=== PATIENT | male | born 1965 | race Caucasian/White ===

== ENCOUNTER 2022-05-17 14:10 | Outpatient (CLI) | payer OTHER, SELFPAY ==
[2022-05-17 11:35] LABS: Abs Immature Grans 0.14 10^3/uL (0.0-0.06); Absolute Basophil Count 0.02 10^3/uL (0.0-0.2); Absolute Lymphocyte Count 0.65 10^3/uL (1.2-3.4); Absolute Monocyte Count 0.43 10^3/uL (0.1-0.8); Basophils % 0.2; HCT 37.8 % (40.0-50.0); HGB 12.6 g/dL (13.5-17.5); Immature Grans % 1.2; Lymphocytes % 5.5; MCH 31.4 pg (27.0-33.0); MCHC 33.3 % (32.0-36.0); MCV 94 fL (80-95); MPV 9.7 fL (8.0-11.0); Monocytes % 3.6; Neutrophils % 89.5; Platelet Count 272 10^3/uL (130-400); RBC 4.01 10^6/uL (4.36-5.78); RDW 13.7 % (11.8-14.1); RDW-SD 47.6 fL; WBC 11.84 10^3/uL (4.4-10.8)
[2022-05-17 11:50] LABS: ALT 61 U/L (16-63); AST 24 U/L (15-37); Albumin 3.2 g/dL (3.4-5.0); Alkaline Phosphatase 128 U/L (46-116); Anion Gap 7.2 mmol/L (3-11); BUN 22 mg/dL (7-18); Bilirubin, Total 0.2 mg/dL (0.2-1.0); CO2 25.8 mmol/L (21.0-32.0); CREATININE 0.8 mg/dL (0.70-1.30); Calcium 8.7 mg/dL (8.5-10.1); Chloride 107 mmol/L (98-107); Glucose 147 mg/dL (74-106); Potassium 4.2 mmol/L (3.5-5.1); Sodium 140 mmol/L (136-145); Total Protein 7.1 g/dL (6.4-8.2)
[2022-05-17 12:12] LABS: *AMPHETAMINES SCREEN URINE Negative (Negative); *BARBITURATES SCREEN URINE Negative (Negative); *BENZODIAZEPINES SCREEN URINE Negative (Negative); Cannabinoids THC Positive (Negative); Cocaine Screen,Urine Negative (Negative); METHADONE URINE SCREEN Negative (Negative); OPIATES URINE SCREEN Negative (Negative); Tricyclic Antidepressants Negative (Negative)
== END 2022-05-17 14:11 | disposition home or self-care (01) ==
LOC: LBO 14:11
PROVIDERS: PCP Family Medicine; Visit Provider Internal Medicine Medical Oncology
DX: C34.12 Malignant neoplasm of upper lobe, left bronchus or lung (principal); F19.90 Other psychoactive substance use, unspecified, uncomplicated
CPT/HCPCS: 36415; 80053; 80307; 83735; 85025

== ENCOUNTER 2022-05-24 03:50 | Outpatient (CLI) | payer OTHER, SELFPAY ==
[2022-05-24 08:58] LABS: Abs Immature Grans 0.04 10^3/uL (0.0-0.06); Absolute Basophil Count 0.02 10^3/uL (0.0-0.2); Absolute Eosinophil Count 0.48 10^3/uL (0.0-0.7); Absolute Lymphocyte Count 1.48 10^3/uL (1.2-3.4); Absolute Monocyte Count 0.77 10^3/uL (0.1-0.8); Absolute Neutrophil Count 4.55 10^3/uL (1.2-6.7); Basophils % 0.3; Eosinophils % 6.5; HCT 42.8 % (40.0-50.0); HGB 14.3 g/dL (13.5-17.5); Immature Grans % 0.5; Lymphocytes % 20.2; MCH 31.2 pg (27.0-33.0); MCHC 33.4 % (32.0-36.0); MCV 93 fL (80-95); MPV 9.5 fL (8.0-11.0); Monocytes % 10.5; Platelet Count 270 10^3/uL (130-400); RBC 4.58 10^6/uL (4.36-5.78); RDW 13.2 % (11.8-14.1); RDW-SD 44.9 fL; WBC 7.34 10^3/uL (4.4-10.8)
[2022-05-24 09:11] LABS: ALT 52 U/L (16-63); AST 37 U/L (15-37); Alkaline Phosphatase 83 U/L (46-116); BUN 23 mg/dL (7-18); Bilirubin, Total 0.4 mg/dL (0.2-1.0); CREATININE 0.9 mg/dL (0.70-1.30); Calcium 8.3 mg/dL (8.5-10.1); Chloride 103 mmol/L (98-107); Glucose 99 mg/dL (74-106); Magnesium 1.9 mg/dL (1.8-2.4); Potassium 4.1 mmol/L (3.5-5.1); Sodium 136 mmol/L (136-145); Total Protein 6.9 g/dL (6.4-8.2)
[2022-05-24 09:37] LABS: *AMPHETAMINES SCREEN URINE Positive (Negative); *BARBITURATES SCREEN URINE Negative (Negative); *BENZODIAZEPINES SCREEN URINE Negative (Negative); Cannabinoids THC Positive (Negative); Cocaine Screen,Urine Negative (Negative); METHADONE URINE SCREEN Negative (Negative); OPIATES URINE SCREEN Positive (Negative)
[2022-05-24 09:38] LABS: Tricyclic Antidepressants Negative (Negative)
== END 2022-05-24 03:51 | disposition home or self-care (01) ==
LOC: LBO 03:50
PROVIDERS: PCP Family Medicine; Visit Provider Internal Medicine Medical Oncology
DX: C34.12 Malignant neoplasm of upper lobe, left bronchus or lung (principal); F19.90 Other psychoactive substance use, unspecified, uncomplicated
CPT/HCPCS: 36415; 80053; 80307; 83735; 85025

== ENCOUNTER 2022-05-31 03:40 | Outpatient (CLI) | payer OTHER, SELFPAY ==
[2022-05-31 09:44] LABS: Abs Immature Grans 0.21 10^3/uL (0.0-0.06); Absolute Basophil Count 0.05 10^3/uL (0.0-0.2); Absolute Eosinophil Count 0.05 10^3/uL (0.0-0.7); Absolute Monocyte Count 0.18 10^3/uL (0.1-0.8); Basophils % 0.4; Eosinophils % 0.4; HCT 39.5 % (40.0-50.0); HGB 13.3 g/dL (13.5-17.5); Immature Grans % 1.6; Lymphocytes % 4.3; MCH 31.7 pg (27.0-33.0); MCHC 33.7 % (32.0-36.0); MCV 94 fL (80-95); MPV 9.6 fL (8.0-11.0); Monocytes % 1.4; Neutrophils % 91.9; Platelet Count 289 10^3/uL (130-400); RDW 13.3 % (11.8-14.1); RDW-SD 45.5 fL; WBC 13.17 10^3/uL (4.4-10.8)
[2022-05-31 09:45] LABS: Absolute Lymphocyte Count 0.57 10^3/uL (1.2-3.4)
[2022-05-31 10:07] LABS: ALT 188 U/L (16-63); AST 109 U/L (15-37); Albumin 3.2 g/dL (3.4-5.0); Alkaline Phosphatase 91 U/L (46-116); Anion Gap 8.7 mmol/L (3-11); BUN 26 mg/dL (7-18); Bilirubin, Total 0.4 mg/dL (0.2-1.0); CO2 26.3 mmol/L (21.0-32.0); CREATININE 0.8 mg/dL (0.70-1.30); Calcium 8.4 mg/dL (8.5-10.1); Chloride 103 mmol/L (98-107); Glucose 159 mg/dL (74-106); Magnesium 2.2 mg/dL (1.8-2.4); Potassium 4.9 mmol/L (3.5-5.1); Sodium 138 mmol/L (136-145); Total Protein 7.2 g/dL (6.4-8.2)
[2022-05-31 10:10] LABS: *AMPHETAMINES SCREEN URINE Negative (Negative); *BARBITURATES SCREEN URINE Negative (Negative); *BENZODIAZEPINES SCREEN URINE Negative (Negative); Cannabinoids THC Positive (Negative); Cocaine Screen,Urine Negative (Negative); METHADONE URINE SCREEN Negative (Negative); OPIATES URINE SCREEN Negative (Negative)
[2022-05-31 10:12] LABS: Tricyclic Antidepressants Negative (Negative)
== END 2022-05-31 03:41 | disposition home or self-care (01) ==
LOC: LBO 03:40
PROVIDERS: PCP Family Medicine; Visit Provider Internal Medicine Medical Oncology
DX: C34.12 Malignant neoplasm of upper lobe, left bronchus or lung (principal); F19.90 Other psychoactive substance use, unspecified, uncomplicated
CPT/HCPCS: 36415; 80053; 80307; 83735; 85025

== ENCOUNTER 2022-06-07 02:40 | Outpatient (CLI) | payer OTHER, SELFPAY ==
[2022-06-07 09:53] LABS: HCT 39.3 % (40.0-50.0); HGB 12.8 g/dL (13.5-17.5); MCH 31.1 pg (27.0-33.0); MCHC 32.6 % (32.0-36.0); MCV 96 fL (80-95); MPV 9.1 fL (8.0-11.0); RBC 4.11 10^6/uL (4.36-5.78); RDW 13.6 % (11.8-14.1); RDW-SD 47.6 fL; WBC 3.29 10^3/uL (4.4-10.8)
[2022-06-07 10:22] LABS: ALT 72 U/L (16-63); AST 31 U/L (15-37); Albumin 3.1 g/dL (3.4-5.0); Alkaline Phosphatase 129 U/L (46-116); Anion Gap 7.1 mmol/L (3-11); BUN 16 mg/dL (7-18); Bilirubin, Total 0.1 mg/dL (0.2-1.0); CO2 31.9 mmol/L (21.0-32.0); CREATININE 0.8 mg/dL (0.70-1.30); Calcium 8.7 mg/dL (8.5-10.1); Chloride 104 mmol/L (98-107); Glucose 123 mg/dL (74-106); Potassium 3.7 mmol/L (3.5-5.1); Sodium 143 mmol/L (136-145)
[2022-06-07 10:24] LABS: Absolute Basophil Count 0.03 10^3/uL (0.0-0.2); Absolute Eosinophil Count 0.07 10^3/uL (0.0-0.7); Absolute Lymphocyte Count 0.49 10^3/uL (1.2-3.4); Atypical Lymphocytes % 2; Bands % 1; Diff Comment Manual Differential; Platelet Count 211 10^3/uL (130-400); RBC Morphology Normal
[2022-06-07 10:32] LABS: *AMPHETAMINES SCREEN URINE Negative (Negative); *BARBITURATES SCREEN URINE Negative (Negative); *BENZODIAZEPINES SCREEN URINE Positive (Negative); Cannabinoids THC Positive (Negative); Cocaine Screen,Urine Negative (Negative); METHADONE URINE SCREEN Negative (Negative); OPIATES URINE SCREEN Negative (Negative)
[2022-06-07 10:33] LABS: Tricyclic Antidepressants Negative (Negative)
[2022-06-12 12:49] LABS: Codeine Negative ng/mL (Cutoff: 25); Dihydrocodeine Negative ng/mL (Cutoff: 25); Hydrocodone Negative ng/mL (Cutoff: 25); Hydromorphone 70 ng/mL (Cutoff: 25); Morphine 31 ng/mL (Cutoff: 25); Naloxone Negative ng/mL (Cutoff: 25); Norhydrocodone Negative ng/mL (Cutoff: 25); Noroxycodone Negative ng/mL (Cutoff: 25); Noroxymorphone Negative ng/mL (Cutoff: 25)
== END 2022-06-07 02:41 | disposition home or self-care (01) ==
LOC: LBO 02:41
PROVIDERS: PCP Family Medicine; Visit Provider Internal Medicine Medical Oncology
DX: F19.20 Other psychoactive substance dependence, uncomplicated (principal); C34.12 Malignant neoplasm of upper lobe, left bronchus or lung; F11.20 Opioid dependence, uncomplicated
CPT/HCPCS: 36415; 80053; 80307; 80361; 80362; 80365; 83735; 85025

== ENCOUNTER 2022-06-08 16:26 | Emergency (ER) | payer OTHER, SELFPAY ==
[2022-06-08] VITALS (20 sets, daily range): BP systolic 78–155; BP diastolic 51–91; PULSE 110–154; RESP 3–41; TEMP 36.3–38.8; O2SAT 88–99
--- NOTE | 2022-06-08 16:15 | RT.EKG_ITS ---
APPROVED REPORT Exam: Resting ECG Reason for Exam: ams Patient Location: E HR:123 bpm ECG Measurements Heart Rate 123 AXIS PA 158 P 52 QRSd 92 QRS 39 QT 282 T 5 QTc 405 Conclusion Sinus tachycardia...rate> 99 Probable left atrial enlargement...P >50mS, <-0.10mV V1 Probable left ventricular hypertrophy...multiple LVH criteria
--- NOTE | 2022-06-08 16:15 | DI.CT_ITS ---
Exam(s) CT BRAIN NECK CTA EXAM: CT BRAIN NECK CTA CLINICAL HISTORY: stroke symptoms. TECHNIQUE: Imaging Protocol: Axial CT angiography was performed with multi-slice acquisition and mu lti-planar and/or 3D reconstructions. CONTRAST MATERIAL: Intravenous: Omnipaque 350 Contrast volume:structured data in ml COMPARISON: No exams were available for comparison FINDINGS: CT angiography of the cervical cranial region was performed according to the usual protocol with intr avenous infusion of 85 cc of Omnipaque 350. There is suboptimal contrast bolus and significant patient motion, these factors limit this examinati on.. Initial noncontrast scanning of the head is unremarkable. The lung apices show multiple apparent areas of consolidation, mass not excluded. Follow-up chest CT recommended following treatment. Additionally, note is made of and apical/superior mediastinal appa rent mass versus abscess with a low-attenuation central portion lying adjacent to left subclavian art shameka and aortic arch. Please correlate regarding known history of malignancy period. There is no tejas dence of a cervical mass or adenopathy. The tracheal laryngeal structures appear intact. The common, internal, and external carotid arteries are within normal limits in the cervical region e xcept for slight atheromatous changes. With no evidence of aneurysm, stenosis, or dissection. The vertebral arteries are unremarkable in appearance in the cervical region with no evidence of aneu rysm, stenosis, or dissection. Intracranial portions of the internal carotid arteries appear normal with no evidence of aneurysm, st enosis, or dissection. Intracranial vertebral arteries and basilar artery appear normal with no evidence of aneurysm, stenos is or dissection. No aneurysm identified in the region of the [id number]. The there is suggestion of narrowing of the M1 segment of the right middle cerebral artery raising the possibility of high-grade stenosis ve rsus occlusion. Possible M2 segment involvement. Additional evaluation with catheter angiography re commended. No enhancing brain lesion identified on 5 minutes delayed images.. IMPRESSION: Right apical/mediastinal mass noted, please correlate with history of malignancy. Additionally there are multiple areas of apparent upper lobe pulmonary consolidation seen on visualiz ed lung apices. Limited study but possible high-grade occlusion or stenosis of the distal right middle cerebral arter y M1 segment/M2 segment. Additional evaluation with catheter angiography recommended. RADIATION DOSE DELIVERED: 2,336.64mGy.cmTotal DLP 2,336.64mGy.cm Total DLP !Error CTDIvol DATA REPOSITORY: All CT scans at this facility are submitted to the National Radiology Data Registry (NRDR) Dose Index Registry (DIR) with the [employer] (A[employer]). RADIATION OPTIMIZATION: All CT scans at this facility use at least one of these dose optimization te chniques: automated exposure control; mA and/or kV adjustment per patient size (includes targeted exa ms where dose is matched to clinical indication); or iterative reconstruction.
[2022-06-08] MEDS: Naloxone 0.4 MG/ML VIAL IVP (16:28)
[2022-06-08] MEDS: Normal Saline 1,000 ML 1000 ML IV ×2 (16:29→19:47)
[2022-06-08] MEDS: LORazepam 20 MG/10 ML VIAL IVP (16:33)
--- NOTE | 2022-06-08 16:39 | ED.GENADUL_ITS ---
Discharge Plan Disposition Patient Disposition: [facility] Condition: Critical Discharge Details Clinical Impression: Acute respiratory failure with hypoxia, Acute CVA (cerebrovascular accident), Neutropenia, Multifocal pneumonia Primary Care Provider: Willam Waite ED Provider: Jeff Miller Home Meds and New Rx's Prescriptions: No Action metoprolol succinate 25 mg tablet extended release 24 hr 25 mg PO DAILY clonidine HCl 0.1 mg tablet 0.1 mg PO QHS ibuprofen 200 mg tablet 200 mg PO Q6H PRN naproxen sodium [Aleve] 220 mg capsule 220 mg PO BID PRN divalproex [Depakote ER] 500 mg tablet extended release 24 hr 500 mg PO DAILY multivitamin Tablet 1 tab PO DAILY acetaminophen 325 mg capsule 325 mg PO ONCE PRN fluticasone propion-salmeterol [Advair Diskus] 1 EACH blister with device 1 puff Inhalation BID prazosin 1 MG capsule 3 mg PO BID naltrexone [Revia] 50 MG tablet 50 mg PO DAILY lamotrigine [Lamictal] 25 MG tablet 50 mg PO DAILY omeprazole 10 MG capsule,delayed release(DR/EC) 20 mg PO DAILY Rx Instructions: every morning one hour before breakfast gabapentin 300 MG capsule 300 mg PO BID albuterol sulfate 2.5 MG/3 ML solution for nebulization 2.5 mg Inhalation Q6H PRN prazosin [Minipress] 1 MG capsule 1 mg PO TID dextroamphetamine-amphetamine [Adderall XR] 20 MG capsule,extended release 24hr 20 mg PO DAILY tiotropium bromide [Spiriva with HandiHaler] 18 MCG capsule, w/inhalation device 18 mcg Inhalation DAILY Rx Instructions: w/ inhalation device buprenorphine HCl 8 mg tablet, sublingual 1 tab SUBLINGUAL DAILY dexamethasone 4 mg tablet 1 tab PO DAILY olanzapine 5 mg tablet prochlorperazine maleate 10 mg tablet oxycodone 15 mg tablet Discharge Data Discharge Date/Time-TO BE ENTERED AT DEPARTURE: 06/08/22 21:03 Medical Decision Making 56 yo male with hx of NSCLC on radiation and chemotherapy, bipolar, substance abuse history, who comes in with ems with ams. HE was last seen normal around 330pm when he was at the cancer center per ems report getting radiation therapy. HE went to the bathroom and staff found him in the bathroom with altered mental status. EMS arrived and brought him here. He arrives with a stable bp and is lethargic, when I apply painful stimulation he groans and will withdraw extremities to painful stimuli. Pupils equal and reactive to light. no signs of trauma. Given rapid onset of symptoms suspect drug related overdose vs cva vs hemorrhage, will obtain labs, cta neck/head and also administer narcan to see if it has effect. NIH on arrival 17 (2 conscsiousness, 1 month and age, 3 each for all extremity drift = 12, 3 for language/aphasia) patient was given 0.4mg narcan and was more awake and would answer 1 word yes and no to questions and was constantly rolling around in the bed, seemed to be in mild withdrawal and too agitated for CT so 2mg ativan ordered to help obtain ct images while in CT patient more agitated, was trying to stand up and stating where am I but not answering any questions and could not redirect to lay on the table. He did seem tremulous so seems to have some withdrawal symptoms, to expedite acquisition of images iv ketamine ordered with good effect ct confirms likely right mca infarct with some occlusion of M1 and M2. on return back from ct he was less responsive, barely responsive to painful stimuli and not tolerating interventions including bipap. He was not protecting his airway and without bipap was hypoxic in the high 80's so decision was made to intubate which was done without complications on first attempt with size 4 cmac. His xray shows multifocal lesions concerning for ards vs pneumonia vs pulmonary edema, and on labs is neutropenic so cultures also ordered and was given a dose of vancomycin and zosyn. I discussed with his Ines on his critical status and the ct findings while waiting [place] hear [place] [facility] Discussed risks benefits of tpa and given he has no exclusions and is within 3 hours of last known normal he is a candidate and she wishes to proceed with this and understands risks of hemorrhage. pt had temp sensing graff placed and does have a temp of 39, IV tylenol ordered and antibiotics already started. [facility] unable to get crew when we called and [facility] available to come and transfer patient ED to ED. I discussed the case with neuroICU attending Dr. Sinha who reviewed the case and CT findings and agreed with tpa and wanted pt sent to the ED for possible neuro intervention. Pt stable on vent currently Differential Diagnosis Differential Diagnosis: drug overdose, cva, hemorrhage Imaging Data Radiologic Study: Attestation: I personally reviewed and interpreted this imaging study as follows: Imaging: X-Ray Radiologist's impression: IMPRESSION: Heterogeneous medial left upper lung mass corresponding to findings seen on the recent CT angiogram of the neck. Multifocal patchy consolidations throughout the bilateral lungs, possibly related to multifocal pneumonia, ARDS, pulmonary edema versus metastatic disease. CT chest is recommended to further evaluate. Radiologic Study #2: Attestation: I personally reviewed and interpreted this imaging study as follows: Imaging: CT Scan Radiologist's impression: vrad report reviewed Radiologic Study #3: Attestation: I personally reviewed and interpreted this imaging study as follows: Imaging: X-Ray My impression: satisfactory position of et tube and gastric tube Lab Data Lab results reviewed: Yes I reviewed the patient's lab results. ECG Data Prior ECG tracings: not available for review Interpretation: sinus tachycardia, rate of 123, no acute st t wave ischemic findings, evidence of lvh HPI General Mode of arrival: EMS . Date/Time Provider Initiated Documentation: 06/08/22 16:31 . Limitations to Documentation: altered mental status . Information obtained by: EMS . History of Present Illness 56 year old M presents to the emergency department with the chief complaint of altered mental status, described as severe, Patient started experiencing this hour(s) (1) and it has been constant. No relieving factors improve symptom(s), No exacerbating factors reported . Patient did receive the following treatments prior to arrival, none Related Data Home Medications Medication Instructions Recorded Confirmed albuterol sulfate 2.5 mg/3 mL 2.5 mg inhalation Q6H PRN 08/19/16 06/08/22 (0.083 %) solution for nebulization dextroamphetamine-amphetamine ER 20 mg PO DAILY 08/19/16 20 mg 24hr capsule,extend release (Adderall XR) fluticasone 250 mcg-salmeterol 50 1 puff inhalation BID 08/19/16 mcg/dose blistr powdr for inhalation (Advair Diskus) gabapentin 300 mg capsule 300 mg PO BID 08/19/16 06/08/22 lamotrigine 25 mg tablet (Lamictal) 50 mg PO DAILY 08/19/16 naltrexone 50 mg tablet (Revia) 50 mg PO DAILY 08/19/16 06/08/22 omeprazole 10 mg capsule,delayed 20 mg PO DAILY 08/19/16 06/08/22 release prazosin 1 mg capsule 3 mg PO BID 08/19/16 prazosin 1 mg capsule (Minipress) 1 mg PO TID 08/19/16 tiotropium bromide 18 mcg capsule 18 mcg inhalation DAILY 08/19/16 with inhalation device (Spiriva with HandiHaler) acetaminophen 325 mg capsule 325 mg PO ONCE PRN 05/05/22 06/08/22 clonidine HCl 0.1 mg tablet 0.1 mg PO QHS 05/05/22 06/08/22 divalproex 500 mg tablet,extended 500 mg PO DAILY 05/05/22 06/08/22 release 24 hr (Depakote ER) ibuprofen 200 mg tablet 200 mg PO Q6H PRN 05/05/22 06/08/22 metoprolol succinate 25 mg 25 mg PO DAILY 05/05/22 06/08/22 tablet,extended release 24 hr multivitamin 1 tab PO DAILY 05/05/22 06/08/22 naproxen sodium 220 mg capsule 220 mg PO BID PRN 05/05/22 06/08/22 (Aleve) buprenorphine HCl 8 mg sublingual 1 tab sublingual DAILY 06/08/22 06/08/22 tablet dexamethasone 4 mg tablet 1 tab PO DAILY 06/08/22 06/08/22 olanzapine 5 mg tablet tab 06/08/22 06/08/22 oxycodone 15 mg tablet tab 06/08/22 06/08/22 prochlorperazine maleate 10 mg tab 06/08/22 06/08/22 tablet Allergies Allergy/AdvReac Type Severity Reaction Status Date / Time fentanyl [From Duragesic] AdvReac Nausea Unverified 08/19/16 15:50 fluoxetine AdvReac Unverified 08/19/16 16:27 General Stated Complaint: AMS/LOC FRANK: 1 Review of Systems Unobtainable due to mental status PFSH All Active Problems (Updated 06/08/22 @ 19:35 by Dre Li MD) Acute respiratory failure with hypoxia (Acute) Acute CVA (cerebrovascular accident) (Acute) Neutropenia (Acute) Multifocal pneumonia (Acute) Mass of upper lobe of left lung (Acute) Medical History (Updated 06/08/22 @ 19:35 by Dre Li MD) Lumbar disc herniation Social History Smoking risk assessment performed?: No Exam Const Orientation: other (lethargic) [facility] Head: normal to inspection Ears: external ears normal General nose exam: external nose normal Mouth: moist mucous membranes Neck Neck: normal visual inspection Resp Effort & Inspection: normal respiratory effort and able to speak in complete sentences Cardio Rate: regular rate Skin General skin exam: no rashes or lesions noted Neuro General: patient obtunded (lethargic) Course Vital Signs Vital signs: Vital Signs Temperature 36.3 C L 06/08/22 16:23 Pulse 124 H 06/08/22 16:23 Respiratory Rate 24 06/08/22 16:23 Blood Pressure 116/91 H 06/08/22 16:23 Pulse Oximetry 88 L 06/08/22 16:23 Temperature 36.3 C L 06/08/22 16:23 Pulse 130 H 06/08/22 16:31 Pulse 127 H 06/08/22 16:31 Respiratory Rate 40 H 06/08/22 16:31 Blood Pressure 121/51 L 06/08/22 16:31 Blood Pressure Mean 64 06/08/22 16:31 Pulse Oximetry 88 L 06/08/22 16:23 Oxygen Delivery Method Non-Rebreather 06/08/22 16:23 Procedures Intubation Time out performed: No (emergent) sedative: other (propofol 80mg) paralytic: Rocuronium Mg Given: 100 (mg) Laryngoscope: other (size 4 cmac) ET Tube Size: 8 ET Tube Uncuffed: No Tube Secured Depth (cm): 22 Tube Secured Location: lips Tube Placement Confirmation: visualized tube passing through cords, equal breath sounds bilaterally, no breath sounds over epigastrum and confirmation by capnometry Patient Tolerated Procedure: well and no complications Intubation Complications: none Critical Care Time Critical Care Time Critical Care Time: Yes Total Critical Care Time: 150 (minutes) Attestation: time spent reviewing hemoydamics, lab review, imaging review, administering tpa with pt with acute cva and also hypoxic respiratory failure requiring intubation and potential to deteriorate at any time Sign Out Sign Out Data: Sign Out Comment: acute cva s/p tpa and also neutropenic fever s/p intubation for hypoxic respiratory failure s/p vanco and zosyn. [place] [facility] [place] [place] [facility] approximately 845pm Last updated by Dre Li MD at 06/08/22 19:43
[2022-06-08] MEDS: Omnipaque 350 MG/ML 100 ML BTL IV (16:41)
[2022-06-08] MEDS: Normal Saline Flush 10 ML SYR IVP (16:46)
[2022-06-08 16:54] LABS: BE (Venous) -1 mmol/L (-2-3); HCO3 (Venous) 24 mmol/L (23-28); O2 Sat (Venous) 95 %; TCO2 (Venous) 22 mmol/L (24-29); pCO2 (Venous) 39 mmHg (41-51); pO2 (Venous) 71 mmHg
[2022-06-08 17:00] LABS: Abs Immature Grans 0.08 10^3/uL (0.0-0.06); HCT 36.2 % (40.0-50.0); HGB 12.2 g/dL (13.5-17.5); MCH 31.4 pg (27.0-33.0); MCHC 33.7 % (32.0-36.0); MCV 93 fL (80-95); MPV 9.3 fL (8.0-11.0); Platelet Count 186 10^3/uL (130-400); RBC 3.88 10^6/uL (4.36-5.78); RDW-SD 46.7 fL
--- NOTE | 2022-06-08 17:00 | DI.RAD_ITS ---
Exam(s) XR CHEST 1V IN DI DEPT EXAM: XR CHEST 1V IN DI DEPT CLINICAL HISTORY: altered mental status, hypoxia TECHNIQUE: COMPARISON: No exams were available for comparison FINDINGS: The heart is not enlarged. There are bilateral multifocal pulmonary opacities and a medial left apic al apparent lung mass versus abscess seen on recent CT examination is again noted. Please correlate clinically. Findings a be consistent with diffuse multifocal pneumonia with additional left apical l hardeep mass or abscess. IMPRESSION: RADIATION DOSE DELIVERED: Total DLP
[2022-06-08] MEDS: Ketamine 500 MG/10 ML VIAL 100 MG IVP (17:01)
[2022-06-08 17:08] LABS: WBC 1.07 10^3/uL (4.4-10.8)
[2022-06-08 17:20] LABS: ALT 76 U/L (16-63); AST 56 U/L (15-37); Albumin 2.7 g/dL (3.4-5.0); Alkaline Phosphatase 63 U/L (46-116); Anion Gap 10.4 mmol/L (3-11); BUN 29 mg/dL (7-18); Bilirubin, Total 0.4 mg/dL (0.2-1.0); CO2 25.6 mmol/L (21.0-32.0); CREATININE 1.6 mg/dL (0.70-1.30); Calcium 8.6 mg/dL (8.5-10.1); Chloride 104 mmol/L (98-107); Estimated GFR 45.27 (mL/min/1.73m2); Glucose 130 mg/dL (74-106); Sodium 140 mmol/L (136-145); Total Protein 6.3 g/dL (6.4-8.2)
[2022-06-08 17:24] LABS: Potassium 5.2 mmol/L (3.5-5.1)
[2022-06-08 17:25] LABS: Absolute Lymphocyte Count 0.54 10^3/uL (1.2-3.4); Absolute Monocyte Count 0.09 10^3/uL (0.1-0.8); Atypical Lymphocytes % 6; Bands % 2
[2022-06-08 17:26] LABS: Metamyelocytes % 16
[2022-06-08 17:27] LABS: Absolute Neutrophil Count 0.28 10^3/uL (1.2-6.7)
[2022-06-08] MEDS: Albuterol/Ipratropium 3 ML UPD VIAL UPD (17:39)
[2022-06-08 17:41] LABS: Magnesium 1.4 mg/dL (1.8-2.4); TSH (W/Ref FT4) 0.92 uIU/mL (0.36-3.74)
[2022-06-08] MEDS: methylPREDNISolone SUCC 125 MG VIAL IVP (17:41)
[2022-06-08 17:47] LABS: VALPROIC ACID 60.9 ug/mL
[2022-06-08 17:51] LABS: ETHANOL BLOOD < 3.0 mg/dL (<10)
--- NOTE | 2022-06-08 17:59 | DI.VRAD_ITS ---
Addendum created by Arti Booker MD on 06/08/2022 6:02:38 PM EDT: THIS REPORT CONTAINS FINDINGS THAT MAY BE CRITICAL TO PATIENT CARE. As of 6:02 PM EDT on 06/08/2022, Mally Monreal confirmed that Dre Li has received the exam report, is aware of the critical findings, and indicated no conference call was necessary to discuss the exam findings. Initial report created on 06/08/2022 5:58:48 PM EDT: PROCEDURE INFORMATION: Exam: CTA Head With Contrast, Arteriography Exam date and time: 06/08/2022 4:54 PM Age: 56 years old Clinical indication: Stroke-like symptoms; Other: Stroke symptoms TECHNIQUE: Imaging protocol: Computed tomographic angiography of the head with contrast. Exam focused on the arteries. 3D rendering (Not supervised by radiologist): MIP and/or 3D reconstructed images were created by the technologist. Contrast material: OMNIPAQUE; Contrast volume: 85 ml; Contrast route: INTRAVENOUS (IV); Other contrast: stroke symptoms; COMPARISON: No relevant prior studies available. FINDINGS: ANTERIOR CIRCULATION: Right internal carotid artery: Unremarkable. Intracranial segment is patent with no significant stenosis. No aneurysm. Right middle cerebral artery: Occluded distal M1 and proximal superior M2 segment of the right middle cerebral artery with relative paucity of vessels in the posterior right frontal lobe and right operculum. Right anterior cerebral artery: Unremarkable. No occlusion or significant stenosis. No aneurysm. Left internal carotid artery: Unremarkable. Intracranial segment is patent with no significant stenosis. No aneurysm. Left middle cerebral artery: Unremarkable. No occlusion or significant stenosis. No aneurysm. Left anterior cerebral artery: Unremarkable. No occlusion or significant stenosis. No aneurysm. POSTERIOR CIRCULATION: Right vertebral artery: Unremarkable. No occlusion or significant stenosis. No aneurysm. Left vertebral artery: Unremarkable. No occlusion or significant stenosis. No aneurysm. Basilar artery: Unremarkable. No occlusion or significant stenosis. No aneurysm. Right posterior cerebral artery: Unremarkable. No occlusion or significant stenosis. No aneurysm. Left posterior cerebral artery: Unremarkable. No occlusion or significant stenosis. No aneurysm. Brain: Subtle parenchymal hypoattenuation suspicious for acute right MCA infarction involving the right insular cortex and posterolateral right frontal lobe. No intracranial hemorrhage. Cerebral ventricles: No ventriculomegaly. Bones/joints: Unremarkable. No acute fracture. Soft tissues: Unremarkable. IMPRESSION: 1. Subtle parenchymal hypoattenuation suspicious for acute right MCA infarction involving the right insular cortex and posterolateral right frontal lobe. No intracranial hemorrhage. 2. Occluded distal M1 and proximal superior M2 segment of the right middle cerebral artery with relative paucity of vessels in the posterior right frontal lobe and right operculum. PROCEDURE INFORMATION: Exam: CTA Neck With Contrast Exam date and time: 06/08/2022 4:54 PM Age: 56 years old Clinical indication: Stroke-like symptoms; Other: Stroke symptoms TECHNIQUE: Imaging protocol: Computed tomographic angiography of the neck with contrast. 3D rendering (Not supervised by radiologist): MIP and/or 3D reconstructed images were created by the technologist. Radiation optimization: All CT scans at this facility use at least one of these dose optimization techniques: automated exposure control; mA and/or kV adjustment per patient size (includes targeted exams where dose is matched to clinical indication); or iterative reconstruction. Contrast material: OMNIPAQUE; Contrast volume: 85 ml; Contrast route: INTRAVENOUS (IV); Other contrast: stroke symptoms; COMPARISON: No relevant prior studies available. FINDINGS: Limitations: Motion artifact and suboptimal arterial bolus limit accurate assessment. Right common carotid artery: No stenosis. No dissection or occlusion. Right internal carotid artery: Atherosclerotic disease with approximately 25-50% proximal right ICA stenosis, although motion degradation limits accurate assessment. Right external carotid artery: No occlusion or stenosis of the origin. Left common carotid artery: Partial encasement of the posterior margin of the proximal left common carotid artery from the left upper lung mass. No stenosis or occlusion. Left internal carotid artery: Atherosclerotic disease, without significant proximal left internal carotid artery stenosis by NASCET criteria. Left external carotid artery: No occlusion or stenosis of the origin. Right vertebral artery: No stenosis. No dissection or occlusion. Left vertebral artery: Circumferential encasement of the proximal left vertebral artery associated with the left upper lung mass. No stenosis or occlusion. Left subclavian artery: Circumferential encasement of the proximal left subclavian artery associated with left upper lung mass, without stenosis or occlusion. Soft tissues: No significant soft tissue swelling. Bones/joints: Degenerative changes of the cervical spine. Reversal of cervical lordosis. Mild anterolisthesis at C3-C4. Lungs: Heterogeneous 6 x 5.8 cm medial left apical lung mass with central necrosis is suspicious for lung malignancy. Multifocal consolidations of the bilateral upper lungs with interstitial prominence. Although this may represent multifocal pneumonia, possibility of pulmonary edema, ARDS or metastatic disease cannot be excluded. Recommend CT chest to further evaluate. Paraseptal emphysema of the upper lungs. IMPRESSION: 1. Motion artifact and suboptimal arterial bolus limit accurate assessment. 2. Heterogeneous 6 x 5.8 cm medial left apical lung mass with central necrosis is suspicious for lung malignancy. Multifocal consolidations of the bilateral upper lungs with interstitial prominence. Although this may represent multifocal pneumonia, possibility of pulmonary edema, ARDS or metastatic disease cannot be excluded. Underlying paraseptal emphysema. Recommend CT chest to further evaluate. 3. Associated circumferential encasement of the proximal left subclavian artery and proximal left vertebral artery. Partial encasement of the posterior margin of the proximal left common carotid artery. 4. Atherosclerotic disease with approximately 25-50% proximal right ICA stenosis, although motion degradation limits accurate assessment. No significant proximal left ICA stenosis. REFERENCES: NASCET CRITERIA. The degree of internal carotid artery stenosis is based on NASCET criteria. Normal is no stenosis. Mild is less than 50% stenosis. Moderate is 50-69% stenosis. Severe is 70% to 99% stenosis. Total occlusion is no detectable patent lumen. Dictated and Authenticated by: Arti Booker MD. Ordering:BRITT Erickson MD
[2022-06-08] MEDS: LORazepam 20 MG/10 ML VIAL (18:00)
--- NOTE | 2022-06-08 18:05 | DI.VRAD_ITS ---
PROCEDURE INFORMATION: Exam: XR Chest Exam date and time: 06/08/2022 5:20 PM Age: 56 years old Clinical indication: Other: Altered mental status , hypoxia TECHNIQUE: Imaging protocol: Radiologic exam of the chest. Views: 1 view. COMPARISON: CT BRAIN NECK CTA 06/08/2022 4:54 PM FINDINGS: Lungs: Heterogeneous medial left upper lung mass corresponding to findings seen on the recent CT angiogram of the neck. Multifocal patchy consolidations throughout the bilateral lungs, possibly related to multifocal pneumonia, ARDS, pulmonary edema versus metastatic disease. CT chest is recommended to further evaluate. Pleural spaces: Unremarkable. No pleural effusion. No pneumothorax. Heart/Mediastinum: Cardiomediastinal countour within normal limits. Bones/joints: Degenerative changes of the thoracic spine. IMPRESSION: Heterogeneous medial left upper lung mass corresponding to findings seen on the recent CT angiogram of the neck. Multifocal patchy consolidations throughout the bilateral lungs, possibly related to multifocal pneumonia, ARDS, pulmonary edema versus metastatic disease. CT chest is recommended to further evaluate. Dictated and Authenticated by: Arti Booker MD. Ordering:BRITT Ericksno MD
[2022-06-08] MEDS: Propofol 200 MG/20 ML VIAL 85 MG IVP (18:15)
[2022-06-08] MEDS: Rocuronium 50 MG/5 ML SYR 100 MG IVP (18:15)
--- NOTE | 2022-06-08 18:15 | DI.RAD_ITS ---
Exam(s) XR PORTABLE CHEST AP POST LINE EXAM: XR PORTABLE CHEST AP POST LINE CLINICAL HISTORY: tube placement TECHNIQUE: COMPARISON: CR,XR XR CHEST 1V IN DI DEPT from 06/08/2022 FINDINGS: Portable AP chest at 1917 hours. Note is again made of diffuse multifocal pulmonary opacities. Ther e is interval placement of an ET tube which lies in good position. An NG tube is also placed and rossana ears to lie in appropriate position although the distal tip is not seen in the mid abdomen. IMPRESSION: RADIATION DOSE DELIVERED: Total DLP
[2022-06-08] MEDS: PROPOFOL 1,000 MG/100 ML BTL 50 MG (18:16)
[2022-06-08 18:18] LABS: Diff Comment Manual Differential; RBC Morphology Normal
[2022-06-08] MEDS: PIPERACILLIN/TAZO 4.5 GM in Normal Saline 100 ML IVPB (18:34)
[2022-06-08 18:40] LABS: Lactate 3.1 mmol/L (0.6-1.4)
[2022-06-08 18:44] LABS: Source Nasal/Nares
[2022-06-08 18:50] LABS: BE -1 mmol/L (-2-3); HCO3 27 mmol/L (22-26); pH 7.21 (7.35-7.45); pO2 94 mmHg (80-105); sO2 96 % (95-98); tCO2 26 mmol/L (23-27)
[2022-06-08 18:52] LABS: Site Right Radial; pCO2 67 mmHg (35-45)
[2022-06-08 18:53] LABS: FIO2 70 %
[2022-06-08 18:58] LABS: Troponin I < 50 ng/L (<or=60)
[2022-06-08] MEDS: Ketamine 500 MG/10 ML VIAL 400 MG IM (19:18)
[2022-06-08 19:20] LABS: COVID-19 PCR Negative (Negative)
[2022-06-08] MEDS: MAGNESIUM SULFATE 2 GM/50 ML BAG IVPB (19:20)
[2022-06-08 19:25] LABS: Bilirubin Negative (Negative); Blood Negative (Negative); Clarity Clear (Clear); Glucose Negative (Negative); Ketones Negative (Negative); Leukocyte Esterase Negative (Negative); Nitrite Negative (Negative); Urobilinogen 0.2 EU/dL (Up TO 0.2); pH 5.5 (5-8)
[2022-06-08] MEDS: ACETAMINOPHEN 1,000 MG/100 ML BTL 1000 MG (19:25)
[2022-06-08 19:35] LABS: Bacteria Negative HPF (Negative); C & S Indicated? No; Casts Negative LPF (Negative); Crystals Negative HPF (Negative); Epithelial Cells Negative HPF (Negative); Mucus Negative (Negative); Other Cells Negative (Negative); RBC Negative HPF (0-2)
--- NOTE | 2022-06-08 19:54 | DI.VRAD_ITS ---
PROCEDURE INFORMATION: Exam: XR Chest Exam date and time: 06/08/2022 7:04 PM Age: 56 years old Clinical indication: Device placement; Other: Intubation and ng TECHNIQUE: Imaging protocol: Radiologic exam of the chest. Views: 1 view. COMPARISON: XR CHEST 1V IN DI DEPT 06/08/2022 5:20 PM FINDINGS: Tubes, catheters and devices: Endotracheal tube terminates 4 cm above the amaya. Enteric tube is seen within the stomach Lungs: Patchy bilateral opacities may represent multifocal pneumonia including COVID-19. Pleural spaces: Unremarkable. No pleural effusion. No pneumothorax. Heart/Mediastinum: Unremarkable. No cardiomegaly. Bones/joints: Unremarkable. IMPRESSION: Patchy bilateral opacities may represent multifocal pneumonia including COVID-19. Dictated and Authenticated by: Aaron Moscoso MD. Ordering:BRITT Erickson MD
[2022-06-08] MEDS: VANCOMYCIN 1,000 MG in Normal Saline 250 ML 166.6666 MG IVPB (20:00)
[2022-06-08 20:02] LABS: BE -1 mmol/L (-2-3); HCO3 26 mmol/L (22-26); pCO2 58 mmHg (35-45); pH 7.27 (7.35-7.45); pO2 70 mmHg (80-105); sO2 93 % (95-98); tCO2 25 mmol/L (23-27)
[2022-06-08 20:05] LABS: Site Right Radial
[2022-06-08 20:06] LABS: FIO2 60 %
[2022-06-08 20:20] LABS: Troponin I < 50 ng/L (<or=60)
[2022-06-08] MEDS: PROPOFOL 1,000 MG/100 ML BTL 430.915 MG IVPB (20:25)
== END 2022-06-08 21:03 | disposition short-term general hospital (02) ==
PROVIDERS: Emergency Medicine; Emergency Provider Student in an Organized Health Care Education/Training Program; PCP Family Medicine
DX: J96.01 Acute respiratory failure with hypoxia (principal); I63.89 Other cerebral infarction; D70.9 Neutropenia, unspecified; R50.81 Fever presenting with conditions classified elsewhere; J18.9 Pneumonia, unspecified organism; C34.90 Malignant neoplasm of unspecified part of unspecified bronchus or lung; Z79.899 Other long term (current) drug therapy; R41.82 Altered mental status, unspecified
CPT/HCPCS: 31500; 36415; 36416; 51702; 70496; 70498; 71045; 80053; 82805; 82962; 87040; 87635; 93005; 94640; 96361; 96365; 96366; 96367; 96368; 96372; 96375; 99291; 99292; 36600; 80164; 80320; 81003; 81015; 83605; 83735; 84443; 84484; 85025; 93010; J0131; J2310; J2543; J2704; J2930; J2997; J3490; J7620

== ENCOUNTER 2022-07-12 08:45 | Outpatient (CLI) | payer MEDICARE, SELFPAY ==
[2022-07-12 08:21] LABS: Abs Immature Grans 0.05 10^3/uL (0.0-0.06); Absolute Basophil Count 0.03 10^3/uL (0.0-0.2); Absolute Eosinophil Count 0.49 10^3/uL (0.0-0.7); Absolute Lymphocyte Count 1.46 10^3/uL (1.2-3.4); Absolute Monocyte Count 0.91 10^3/uL (0.1-0.8); Absolute Neutrophil Count 2.76 10^3/uL (1.2-6.7); Basophils % 0.5; Eosinophils % 8.6; HCT 33.9 % (40.0-50.0); HGB 11.1 g/dL (13.5-17.5); Immature Grans % 0.9; Lymphocytes % 25.6; MCH 31.8 pg (27.0-33.0); MCHC 32.7 % (32.0-36.0); MCV 97 fL (80-95); MPV 8.9 fL (8.0-11.0); Neutrophils % 48.4; Platelet Count 305 10^3/uL (130-400); RBC 3.49 10^6/uL (4.36-5.78); RDW 15.7 % (11.8-14.1); RDW-SD 55.7 fL
[2022-07-12 08:43] LABS: *AMPHETAMINES SCREEN URINE Negative (Negative); *BARBITURATES SCREEN URINE Negative (Negative); *BENZODIAZEPINES SCREEN URINE Negative (Negative); Cannabinoids THC Positive (Negative); Cocaine Screen,Urine Negative (Negative); METHADONE URINE SCREEN Negative (Negative); OPIATES URINE SCREEN Negative (Negative)
[2022-07-12 08:44] LABS: Tricyclic Antidepressants Negative (Negative)
[2022-07-12 08:54] LABS: ALT 43 U/L (16-63); AST 46 U/L (15-37); Albumin 2.9 g/dL (3.4-5.0); Alkaline Phosphatase 93 U/L (46-116); Anion Gap 4.7 mmol/L (3-11); BUN 14 mg/dL (7-18); Bilirubin, Total 0.2 mg/dL (0.2-1.0); CO2 31.3 mmol/L (21.0-32.0); CREATININE 0.7 mg/dL (0.70-1.30); Calcium 9.2 mg/dL (8.5-10.1); Chloride 104 mmol/L (98-107); FREE T4 0.96 ng/dL (0.76-1.46); Glucose 98 mg/dL (74-106); Magnesium 1.9 mg/dL (1.8-2.4); Potassium 5.1 mmol/L (3.5-5.1); Sodium 140 mmol/L (136-145); TSH 2.65 uIU/mL (0.36-3.74); Total Protein 7.9 g/dL (6.4-8.2)
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
--- OUTSIDE RECORDS SUMMARY | 2022-07-12 08:54 | XMS_ITS | Encounter Summary ---
:1965 [place] [address] Care Team Providers Name Role Phone Willam Waite MD Primary Care Provider Reason for Visit Auth/Cert Specialty Diagnoses / Procedures Referred By Contact Refer red To Contact Diagnoses Acute encephalopathy Cerebrovascular accident (CVA), unspecified mechanism stroke Elizabeth Parra MD [facility] Procedures EMERGENCY [facility] [place] [address] Referral ID Status Reason Start Date Expiration Date Visits Requ ested Visits Authorized [id number] 1 1 Encounter Details Date Type Department Care Team Description 06/11/2022 Anesthesia Event Vascular Lab at Rossy Skelton Ga MD jim [facility] ANESTHESIOLOGY DEPT [facility] [place] [address] [place] [address] [phone] Anesthesia Record Procedure Summary Procedure Name Responsible Anesthesia Start Anesthesia Stop Time Anesthesiologist Time INPATIENT BEDSIDE Events No events on file. Name Total Propofol 100 mg Rocuronium 100 mg PHENYLephrine 80 mcg Agents No agents on file. Blood No blood administrations on file. Lines, Drains, and Airways Type Details Placement Removal Pressure Injury 06/24/22; no; sacral spine; 06/24/22 0000 by Jocelyne Vinson suspected deep tissue injury L, RN documented in this encounter Social History Tobacco Use Types Packs/Day Years [...] 12 months, you worried that your food Someti mes true 04/21/2022 would run out before [...] place to sleep or slept in a fpc (including now)? Sex Assigned at Date Recorded Male 05/04/2022 4:12 PM EDT documented as of this encounter OR Notes Anesthesia Procedure Notes - Ren Skelton MD - 06/11/2022 9:23 PM EDT Associated Order(s): Emergent Intubation Emergent Intubation Date/Time: 06/11/2022 9:14 PM Urgency: emergent Reason for Intubation: Procedure Diagnosis: respiratory distress General Information and Staff Patient location during procedure: other (add comment) (neuro crit care) Anesthesiologist: Jam Garcia MD Resident/FULFILLMENT REPRESENTATIVE: Ren Skelton MD Other anesthesia staff: Kush Wheeler MD Consent for Airway Informed consent: Not obtained. Pre-Intubation Assessment and Preparation: Time Out Performed: Yes Mallampati Score: II Preoxygenated: yes Sedation Provided: anesthesia Muscle Relaxant Used: Muscle relaxant Cervical Spine Precautions: No Cricoid Pressure Applied: Yes Indication for C.P.: Aspiration Precaution Mask difficulty assessment: 0 - Not Attempted Airway Instrumentation Bag/Mask (Kheterpal) Classification: 0 - Not Attempted Oral AIrway Used? No Nasal Airway Used? No Number of attempts: 1 Airway not difficult Airway Details Final airway type: endotracheal tube Successful airway: ETT Cuffed: yes Successful intubation technique: video laryngoscopy Endotracheal tube insertion site: oral Blade: Indirect VIDEO Blade size: D blade. ETT size (mm): 7.5 Placement verified by: chest auscultation and capnometry Measured from: teeth ETT to teeth (cm): 25 documented in this encounter Plan of Treatment Upcoming Encounters Date Type Specialty Care Team Description 07/14/2022 TH Visit (TeleHealth) Palliative Care Kian Zelaya [facility] PALLIATIVE MEDIC [place], [place] [address] (Wo rk) 07/22/2022 TH Visit (TeleHealth) Palliative Care Benoit Lei FILTER TENDER JELLY [facility] [place] [address] Criselda Zelaya FILTER TENDER JELLY [facility] [place] [address] 08/12/2022 Office Visit Cardiology Hari Summers MD [facility] [place] [address] Kit Bonilla MD [facility] [place] [address] documented as of this encounter Procedures Procedure Name Priority Date/Time Associated Comments Diagnosis INTUBATION - ANES Routine 06/11/2022 9:14 PM Resu lts for this ONLY EDT procedure are i n the results section. documented in this encounter Results INTUBATION - ANES ONLY (06/11/2022 9:14 PM EDT) Narrative Jam Garcia MD - 06/11/2022 9:14 PM EDT Ren Skelton MD ? 06/11/2022 ??9:35 PM Emergent Intubation Date/Time: 06/11/2022 9:14 PM Urgency: emergent Reason for Intubation: ?? Procedure Diagnosis: ??respiratory d istress General Information and Staff Patient location during procedure: ?? ot her (add comment) (neuro crit care) Anesthesiologist: Jam Garcia MD Resident/FULFILLMENT REPRESENTATIVE: Ren Skelton MD Other anesthesia staff: Kush Wheeler MD Consent for Airway Informed consent: ??Not obtained. Pre-Intubation Assessment and Preparatio n: Time Out Performed: ??Yes Mallampati Score: ??II Preoxygenated: yes Sedation Provided: anesthesia Muscle Relaxant Used: ??Muscle relaxant Cervical Spine Precautions: ??No Cricoid Pressure Applied: ??Yes Indication for C.P.: ??Aspiration Precau tion Mask difficulty assessment: 0 - Not Atte mpted Airway Instrumentation Bag/Mask (Kheterpal) Classification: ??0 - Not Attempted Oral AIrway Used? ??No Nasal Airway Used? ??No Number of attempts: 1 Airway not difficult Airway Details Final airway type: endotracheal tube Successful airway: ETT Cuffed: yes Successful intubation technique: video l aryngoscopy Endotracheal tube insertion site: oral Blade: Indirect VIDEO Blade size: D blade. ETT size (mm): 7.5 Placement verified by: chest auscultatio n and capnometry Measured from: teeth ETT to teeth (cm): 25 Jam Garcia MD ANES INPUT W LINKED CHGS documented in this encounter Visit Diagnoses Not on filedocumented in this encounter Administered Medications Inactive Administered Medications - up to 3 most recent administrations Medication Order MAR Action Action Date Dose Rate Site PHENYLephrine in NS (PF) Given 06/11/2022 9:15 PM EDT 80 mcg (RADHA-SYNEPHRINE) 0.8 mg/10 mL (80 mcg/mL) multi-dose injection Syrg Intravenous, PRN, Starting on Tue06/11/22 at 2115, Until 06/12/22 at 0026, Anesthesia Intra-op, Routine propofoL (Diprivan) 10 mg/mL bolus injection Given 9:13 PM EDT 100 mg (Anesthesia) Intravenous, PRN, Starting on Tue06/11/22 at 2113, Until 06/12/22 at 0026, Anesthesia Intra-op rocuronium (Zemuron) (10 mg/mL) multi-dose Given 06/11/2022 9:13 PM EDT 100 mg injection Intravenous, PRN, Starting on Tue06/11/22 at 2113, Until 06/12/22 at 0026, Anesthesia Intra-op, Routine documented in this encounter Additional Health Concerns Infection Onset Date Last Indicated Resolved Time Haemophilus influenza 06/09/2022 06/09/2022 06/13/2022 8:09 PM EDT documented as of this encounter Care Teams Suppository Molding Machine Operator Relationship Specialty Start Date End Date Willam Waite MD PCP - General 03/24/22 6 [place] [id number] documented as of this encounter
--- OUTSIDE RECORDS SUMMARY | 2022-07-12 08:54 | XMS_ITS | Encounter Summary ---
:1965 Author Organization [facility] [place] [address] Care Team Providers Name Role Phone Willam Waite MD Primary Care Provider Encounter Details Date Type Department Care Team Description 07/05/2022 Office Visit Hematology/Oncology Marycruz Ash MD [facility] DR HEMATOLOGY/[place] [address] 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; at [facility] Tami Horton APRN [facility] [address] HEMATOLOGY [place] [address] Secondary malignant neoplasm of bone; [address] [place] [address] Social History Tobacco Use Types Packs/Day Years Used Date Current Every Day Smoker Cigarettes 0.25 40 Smokeless Tobacco: Never Used Comments: 6 [...] Sign Reading Time Taken Comments Blood Pressure 146/91 07/05/2022 3:49 PM EDT Pulse 77 07/05/2022 3:49 PM EDT Temperature 36.5 ??C (97.7 ??F) 07/05/2022 3:49 PM EDT Respiratory Rate 18 07/05/2022 3:49 PM EDT Oxygen Saturation 97% 07/05/2022 3:49 PM EDT Inhaled Oxygen Concentration - - Weight 76.2 kg (168 lb) 07/05/2022 3:49 PM EDT Height 180.6 cm (5' 11.1) 07/05/2022 3:49 PM EDT Body Mass Index 23.36 07/05/2022 3:49 PM EDT documented in this encounter Progress Notes Kanu Ash MD - 07/05/2022 4:00 PM EDT Images from the original note were not included. Hematology & Medical Oncology [address] [address] Iban Palomares is a 56 y.o. male being seen for the evaluation of lung cancer. Assessment & Plan Iban Palomares is a 56 y.o. male from [place], [place] with h/o COPD, bipolar affective disorder, herniated disc and HTN, chronic Hep C diagnosed with a lung adenocarcinoma (KRAS Q61L variant; TPS 5-10%) of the left lung apex extending to the scalene triangle, paraspinous soft tissues and superior mediastium with involvement of the T1 and T2 vertebral bodies, the left C7-T1 through T3-T4 neural foramina and the epidural space on the left in the upper thoracic spine. Of note, there was also vascular encasement of left vertebral artery and partial encasement of left subclavian artery. He was started on definitive concurrent chemotherapy/RT on 05.24.22 and received 3 doses of chemotherapy with the concurrent RT before being admitted from 06.08.22- 06.28.22 after being found in an obtunded state. He had a prolonged admission in the ICU requiring intubation. There was initially concern for right MCA occlusion and he was given tpa. Extensive evaluation including EEG and LP were not revealing. There was concern that it may have been related to medications We had a long discussion today. I have discussed his case with Dr. Donald of radiation oncology. The 3 week gap in radiation and ongoing concerns about adherence make it very difficult to see any curative option here going forward. Discussed that we will need to try palliative chemoimmunotherapy with carboplatin/pemetrexed/pembrolizumab. We discussed the potential side effects of treatment and that his substance use and hep C further compound the complexities. At this point do not think we should pursue Hep C treatment prior to resuming cancer treatment given that that is the most pressing issue Kanu Ash MD, MS 07/05/2022 Medical Oncology & Hematology [facility] HPI - Interval History Last seen 06/07/2022 He does not recall any of the events of his ICU stay. Has been not using. Generally feels ok. Continued issues with his pain. Social History/Support Network Home situation: /[place] reports she and pt have been 26 years. They have one daughter together, Ever, who is a primary support. Both pt and have other children. indicated pt's nephew has been involved but shared concerns about his influence on pt. indicated pt does have some good people who want to help if he will let them. indicated she has some good friends who aresupports/resources to her. Family History - not addressed Patient Active Problem List Patient Active Problem List Diagnosis Code ??? Lumbar disc herniation M51.26 ??? Hepatitis C, chronic B18.2 ??? Mass of upper lobe of left lung R91.8 ??? Lung mass R91.8 ??? Substance use disorder F19.90 ??? Primary malignant neoplasm of bronchus of left upper lobe C34.12 ??? Acute encephalopathy G93.40 ??? Moderate protein-calorie malnutrition E44.0 Physical Exam BP (!) 146/91 (Patient Position: Sitting) Pulse 77 Temp 36.5 ??C (97.7 ??F) (Temporal) Resp 18 Ht 180.6 cm (5' 11.1) Wt 76.2 kg (168 lb) SpO2 97% BMI 23.36 kg/m?? Wt Readings from Last 3 Encounters: 07/05/22 76.2 kg (168 lb) 06/27/22 71.6 kg (157 lb 12.8 oz) 06/14/22 85 kg (187 lb 6.3 oz) Physical Exam Constitutional: General: Cooperative but edgy. Appearance: Thin. Uncomfortable HENT: Head: Atraumatic. Eyes: General: No scleral icterus. Right eye: No discharge. Left eye: No discharge. Conjunctiva/sclera: Conjunctivae normal. Pulmonary: Effort: Pulmonary effort is normal. Neurological: General: No focal deficit present. Mental Status: Alert and oriented to person, place, and time. Mental status is at baseline. Psychiatric: Mood and Affect: Mood normal. Behavior: Behavior normal. Thought Content: Thought content normal. Judgment: Judgment normal. Skin: scattered small pustules on his back and chest Imaging CT Chest w Contrast (Exam End: 05/04/2022 5:59 PM) ?? Impression ?? 1. Unchanged size of left upper mediastinal mass/malignancy. This mass abuts the upper esophagus and there is absence of the fat plane between the mass and the esophagus. In addition there is abnormal soft tissue projecting into the left T1-T2 neural foramen and also abutting the anterior T1 and T2 vertebral bodies, concerning for potential epidural extension of tumor. MRI of the lower cervical and upper thoracic spine is recommended for further characterization. 2. Increased nonspecific ground glass opacity and compressive atelectasis surrounding the mass.pro 3. Paraseptal and centrilobular emphysema. No pneumothorax or pleural effusions. Labs 8.15.22 Sodium 143 potassium 3.7 BUN 16 creatinine 0.8 which is stable glucose 123 magnesium 2.0 total bilirubin 0.1 AST 31 ALT 72 down from 188 alk phos 129 up from 91 albumin 3.1 down from 3.2 up from 3.0 White blood cell count 3.29 hemoglobin 12.8 platelet count 211,000 absolute neutrophil count 2.50 05/31/22 WBC 13.17, Hgb 13.3, Plt Ct 289, ANC 12.10 Na 138, K+ 4.9, BUN 26, Creat 0.8, Glucose 159, Calcium 8.4, Mag 2.2, Total Bili 0.4, AST 109 up from 37, ALT 188 up from 52, Alk Phos 91, total Protein 7.2, Albumin 3.2 05/24/22 WBC 7.34, Hgb 14.3, Plt Ct 270, ANC 4.55 Na 136, K+ 4.1, BUN 23, Creat 0.9, Glucose 99, Calcium 8.3, Mag 1.9, total bili 0.4, AST 37, ALT 52,Alk Phos 83, Total Protein 6.9, Albumin 3.0 05/17/22 WBC 11.84, Hgb, 12.6, Plt Ct 272, ANC 10.60 Na 140, K+ 4.2, BUN 22, Creat 0.8, Glucose 147, Calcium 8.7, Mag 2.0, Total Bili 0.2, AST 24, ALT 61, Alk Phos 128, Total Prot 7.1, Albumin 3.2 documented in this encounter Plan of Treatment Upcoming Encounters Date Type Specialty Care Team Description 07/14/2022 TH Visit (TeleHealth) Palliative Care Kian Zelaya [facility] PALLIATIVE MEDIC [place], [place] [address] (Wo rk) 07/22/2022 TH Visit (TeleHealth) Palliative Care Benoit Lei [facility] PALLI[place] [address] Criselda Zelaya [facility] PALLIATIVE [place] [address] 08/12/2022 Office Visit Cardiology Hari Summers MD [facility] [place] [address] Kit Bonilla MD [facility] [place] [address] Scheduled Orders Name Type Priority Associated Diagnoses Order S chedule TSH Lab Routine Primary malignant neoplasm o f Every 3 weeks for 24 bronchus of left upper lobe Occurrences starting 07/05/2022 Secondary malignant neoplasm of until 07/05/2023 bone Medication management T4, free Lab Routine Primary malignant neoplasm o f Every 3 weeks for 24 bronchus of left upper lobe Occurrences starting 07/05/2022 Secondary malignant neoplasm of until 07/05/2023 bone Medication management documented as of this encounter Visit Diagnoses Diagnosis 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 Malignant neoplasm of upper lobe, bronch us or lung 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
--- OUTSIDE RECORDS SUMMARY | 2022-07-12 08:54 | XMS_ITS | Encounter Summary ---
:1965 Author Organization [facility] [place] [address] Care Team Providers Name Role Phone Willam Waite MD Primary Care Provider Encounter Details Date Type Department Care Team Description 06/04/2022 Telephone Palliative Medicine at [facility] Elizabeth Whitmore, [place] [address] Social History Tobacco Use Types Packs/Day Years [...] place to sleep or slept in a custodial (including now)? Sex Assigned at Date Recorded Male 05/04/2022 4:12 PM EDT documented as of this encounter Miscellaneous Notes Telephone Encounter - Elizabeth Whitmore RN - 06/04/2022 11:58 AM EDT Palliative Care Call Caller: RN with patient Iban Palomares Reason for Call: Iban is calling with reports of worsening anxiety, agitation and sleeplessness since stopping lorazepam 2 days ago. Symptom Review: anxiety, agitation, sleeplessness Onset: on-going with worsening symptoms in the last 48 hrs What makes it better: reports Xanax is most helpful and is what he has used in the past. Associated symptoms: sleep Medications review: -Lorazepam- discontinued per Criselda Zelaya APRN on 06/02/2022 -Trazadone- reports caused severe leg cramps and not willing to try again -Seroquel- reports made him ugly, reporting worsening mood. Assessment: Iban reports feeling worked up today. He states he has not been able to get more than 3-4 hours ofsleep over the last 2 nights due to agitation and anxiety. He reports on-going anxiety that he has had for many years. He wonders why the provider discontinued his lorazepam 2 days ago. I reminded him that the reason for discontinuation of the lorazepam was because he was reporting worsening agitation and anxiety due to the lorazepam. He states since stopping it 2 days ago he feels even more agitated and can not sleep at night. He would like do discuss interventions for sleep. He reports he has not been using any street drugs despite the tempation. He reports that xanax in the past has been most helpful for his anxiety and to help him sleep. He wonders why, with a cancer diagnosis, that the providers won't let him have xanax. We discussed that medications like lorazepam such as xanax and klonopin may have the same paradoxal effects (worsenig of anxiety and agitation) that he was having with the lorazepam and therefore may not be advised. I explained Criselda Zelaya was out of the office today and that I would talk to the covering provider and then call him back. Disposition: Telephone advice Next Palliative Care appointment: 06/09/2022 w/Criselda Zelaya Plan of Care: Discussed above reports with covering provider, per Dr. Sanabria a trial prescription for Olanzapine 5mg sent to [facility] in [place]. -start Olazapine 5mg tablet at bedtime -RN call on Tuesday to assess sleep, and mood Timeframe to call back if no improvement: call as needed over the weekend with worsening symptoms ofanxiety, agitation or sleeplinessness Patient/responsible caregiver able to read back instructions/plan of care? Yes, Iban reports he has not tried olanzapine and would be willing to give it a try. When I called back to confirm the prescription was sent I spoke with his daughter Ever as he had left for his radiation therapy. She verbalized understanding of the plan when she stated she would call over the weekend if they noted any worsening of his agitation or sleeplessness symptoms. She confirmed that she and her mother continue to lock up all medications and dispense them directly to him when it is time to take. She demonstrated understanding of plan when stating this new medication will be given before bed. Follow up needed? Yes RN call on Tuesday to assess mood and sleep with new medication. documented in this encounter Plan of Treatment Upcoming Encounters Date Type Specialty Care Team Description 07/14/2022 TH Visit (TeleHealth) Palliative Care Kian Zelaya APRN [facility] PALLIATIVE MEDIC [facility] [place] [address] (Wo rk) 07/22/2022 TH Visit (TeleHealth) Palliative Care Benoit Lei APRN [facility] [place] [address] Criselda Zelaya BIOMEDICAL ENGINEERING TECHNOLOGIST [facility] [place] [address] 08/12/2022 Office Visit Cardiology Hari Summers MD [facility] [place] [address] Kit Bonilla MD [facility] [place] [address] documented as of this encounter Visit Diagnoses Not on filedocumented in this encounter Care Teams Heater Tender Relationship Specialty Start Date End Date Willam Waite MD PCP - General 03/24/22 [address] [place] [phone] documented as of this encounter
--- OUTSIDE RECORDS SUMMARY | 2022-07-12 08:54 | XMS_ITS | Encounter Summary ---
:1965 Author Organization [facility] [place] [address] Care Team Providers Name Role Phone Willam Waite MD Primary Care Provider Encounter Details Date Type Department Care Team Description 07/07/2022 [facility] [address] HEMATOLOGY/ONCOLOGY DEPT [place], [place] [phone] Social History Tobacco Use Types Packs/Day Years [...] PM EDT documented as of this encounter Plan of Treatment Upcoming Encounters Date Type Specialty Care Team Description 07/14/2022 TH Visit (TeleHealth) Palliative Care Kian Zelaya WORK MANAGER [facility] PALLIATIVE MEDIC [place], [place] [address] (Wo rk) 07/22/2022 TH Visit (TeleHealth) Palliative Care Benoit Lei WORK MANAGER [facility] [place] [address] Criselda Zelaya WORK MANAGER [facility] [place] [address] 08/12/2022 Office Visit Cardiology Hari Summers MD [facility] [place] [address] Kit Bonilla MD [facility] [place] [address] documented as of this encounter Visit Diagnoses Not on filedocumented in this encounter Care Teams Assembly Member Relationship Specialty Start Date End Date Willam Waite MD PCP - General 03/24/22 6 [place] [phone] documented as of this encounter
--- OUTSIDE RECORDS SUMMARY | 2022-07-12 08:54 | XMS_ITS | Encounter Summary ---
:1965 Author Organization [place] [address] Care Team Providers Name Role Phone Willam Waite MD Primary Care Provider Reason for Visit Reason Onset Date Comments Medication Refill 06/05/2022 Unable to fill at [facility] over the weekend Encounter Details Date Type Department Care Team Description 06/05/2022 Telephone Pallative Medicine Kinsey Lucas, Medication Refill [facility] CERTIFICATION TECHNICIAN (Unable to fill at [facility] [place] [address] [address] [address] weekend) [phone] PALLIATIVE MEDIC [place], [place] [address] (Wo rk) Social History Tobacco Use Types [...] months, you worried that your food Someadria benson true 04/21/2022 would run out before you [...] place to sleep or slept in a usp (including now)? Sex Assigned at Date Recorded Male 05/04/2022 4:12 PM EDT documented as of this encounter Miscellaneous Notes Telephone Encounter - Kinsey Lucas, CERTIFICATION TECHNICIAN - 06/05/2022 10:15 AM EDT Iban called today (Tuesday) with concerns of throat pain and inability to eat, and the inability tofill his prescriptions for Subutex, BMX, and olanzapine today due to [facility] pharmacy being closedon the weekend. Requesting Rx sent to [facility] in [place]. PDMP reviewed for [place], [place] with no current concerns. Rx sent to [facility] as requested. Iban was not reachable by phone, but a message was left letting him know of the pharmacy change. Message left at [facility] pharmacy to cancel the unfilled prescriptions for the above medications. Iwill have our nurse follow-up on Tuesday with [facility]. Addendum 06/05 8083 I spoke with the pharmacist, Angel, at [facility], to confirm the prescriptions went through. He notified me that the [facility] Rx for buprenorphine, BMX mouthwash, and Zyprexa, had already been filled but not picked up by Iban, and insurance had already been charged. This means Iban will need to pay out of pocket for the Rx at [facility] until the Rx is cancelled at [facility] on Tuesday. The pharmacist verified his prescriptions, recent and upcoming office visits, and was able to validate the buprenorphine prescription for pickup today, and give quotes of the [place] needed. Ines, Iban's , was notified of these concerns, and she will call the pharmacy to see if they can hand picker enough for the weekend, and then fill the rest on Tuesday once the insurance issue is resolved. CC Criselda Zelaya APRN documented in this encounter Plan of Treatment Upcoming Encounters Date Type Specialty Care Team Description 07/14/2022 TH Visit (TeleHealth) Palliative Care Kian Zelaya APRN [facility] PALLIATIVE MEDIC [place], [place] [address] (Wo rk) 07/22/2022 TH Visit (TeleHealth) Palliative Care Benoit Lei APRN [facility] [place] [address] Criselda Zelaya CERTIFICATION TECHNICIAN [facility] [place] [address] 08/12/2022 Office Visit Cardiology Hari Summers MD [facility] [place] [address] Kit Bonilla MD [facility] [place] [address] documented as of this encounter Visit Diagnoses Not on filedocumented in this encounter Care Teams Blind Stitch Machine Operator Relationship Specialty Start Date End Date Willam Waite MD PCP - General 03/24/2203 [address] [place] [address] documented as of this encounter
--- OUTSIDE RECORDS SUMMARY | 2022-07-12 08:54 | XMS_ITS | Encounter Summary ---
:1965 Author Organization [facility] [place] [address] Care Team Providers Name Role Phone Willam Waite MD Primary Care Provider Encounter Details Date Type Department Care Team Description 06/21/2022 Orders Only Neurology at [facility] John La, [facility] D [facility] [place] [address] NEUROLOGY DEPT [phone] [place], [place] [address] (Wo rk) Social History Tobacco [...] TH Visit (TeleHealth) Palliative Care Kian Zelaya [facility] PALLIATIVE MEDIC [place], [place] [address] (Wo rk) 07/22/2022 TH Visit (TeleHealth) Palliative Care Benoit Lei [facility] [place] [address] Criselda Zelaya [employer] [facility] [place] [address] 08/12/2022 Office Visit Cardiology Hari Summers MD [facility] [place] [address] Kit Bonilla MD [facility] [place] [address] documented as of this encounter Procedures Procedure Name Priority Date/Time Associated Diagnosis Comme nts GOLD TUBE HOLD Routine 05/10/2022 10:50 PM Result s for this EDT procedure are i n the results section . documented in this encounter Results Gold Tube HOLD (05/10/2022 10:50 PM EDT) athologist Signature Gold Hold Sample in [facility]. [facility] Specimen Anatomical Collection Method Collection Time Receive d Time (Source) Location / / Volume Laterality Blood No Charge / 05/10/2022 10:50 05/10/2022 Unknown PM EDT 10:58 PM EDT John La DO CHEMISTRY ORDERABLES Performing Organization Address City/State/ZIP [place] [address] documented in this encounter Visit Diagnoses Not on filedocumented in this encounter Care Teams Invoice Checker Relationship Specialty Start Date End Date Willam Waite MD PCP - General 03/24/22 6 [place] [address] documented as of this encounter
--- OUTSIDE RECORDS SUMMARY | 2022-07-12 08:54 | XMS_ITS | Encounter Summary ---
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 Kanu Ash MD [facility] Hem Onc Office Procedures TC PALONOSETRON HCL, 25MCG, INJECTION (ALOXI) TC FOSAPREPITANT, 1MG, INJECTION (EMEND) TC CARBOPLATIN, 50MG, INJECTION (PARAPLATIN) TC PEMETREXED, 10MG, INJECTION (ALIMTA) J2469 Aloxi 0.25 MG - NR J1453 EMEND [address] J9045 CARBOplatin (Paraplati n) 750 MG [id number] ALIMTA 980 MG [id number] KEYTRUDA 200 MG HEMATOLOGY/[place] [phone] Fax: Referral ID Status Reason Start Date Expiration Date Visits V isits Requested Authorized [id number] Authorized 07/07/2022 07/07/2023 99 99 Encounter Details Date Type Department Care Team Description 07/12/2022 Infusion Hematology Oncology at [facility] Arrived [address] [place] [phone] Social History Tobacco Use Types Packs/Day Years [...] place to sleep or slept in a senior living (including now)? Sex Assigned at Date Recorded Male 05/04/2022 4:12 PM EDT documented as of this encounter Plan of Treatment Upcoming Encounters Date Type Specialty Care Team Description 07/14/2022 TH Visit (TeleHealth) Palliative Care Kian Zelaya APRN [facility] PALLIATIVE MEDIC [place], [place] [address] (Wo rk) 07/22/2022 TH Visit (TeleHealth) Palliative Care Benoit Lei, [facility] [place] [address] Criselda Zelaya, [facility] [place] [address] 08/12/2022 Office Visit Cardiology Hari Summers [place] [address] Kit Bonilla MD [facility] [place] [address] documented as of this encounter Visit Diagnoses Not on filedocumented in this encounter Care Teams Dynamics Ax Technical Architect Relationship Specialty Start Date End Date Willam Waite MD PCP - General 03/24/22 6 [place] [address] documented as of this encounter
--- OUTSIDE RECORDS SUMMARY | 2022-07-12 08:54 | XMS_ITS | Clinical Summary ---
:1965 Author Organization [facility] [place] [address] Care Team Providers Name Role Phone Willam Waite MD Primary Care Provider Allergies Active Allergy Reactions Severity Noted Date Comments Fentanyl Nausea Only Medium 04/06/2022 Fluoxetine Medium 04/06/2022 Other reaction( s): Other Lidocaine In Dextrose Other (See Comments) Medium 05/11/2022 Experienced confusion, 7.5 % sensorium menezes es, muscle cramps w hile on lidocaine infus ion for pain -> infusio n had to be discontin ued; would avoid sys temic lidocaine in e future. Medications Medication Sig Dispensed Refills Start Date End Date Status albuterol (PROVENTIL Inhale 2 puffs 0 Active HFA;VENTOLIN HFA) 90 into the lungs mcg/Actuation inhaler every 4 hours as needed. Use with spacer MULTIVITAMIN ORAL Take 1 tablet by 0 Active mouth daily. omeprazole (PriLOSEC) Take 40 mg by 0 04/22/2022 Active 40 mg Capsule, Delayed mouth daily. Release(E.C.) polyethylene glycoL Take 17 g by 14 each 0 05/11/2022 Active (Miralax) 17 gram mouth daily as Powder in Packet needed. Additional Information Patient not taking. Reported on 07/05/2022 naloxone (Narcan) 4 1 each by Nasal route 1 each 0 05/11/20 22 Active mg/actuation [place], Non-Aerosol once as needed for up to 1 dose. Additional Information Patient not taking. Reported on 05/24/2022 acetaminophen (TYLENOL) Take 1,300 mg by 0 Active 650 mg Tablet Sustained mouth every 8 Release hours as needed for Pain. Do not exceed 6 tabs in 24 hours labetaloL (Normodyne) 200 Take 1 tablet by 30 tablet 0 022 Active mg Tablet mouth 3 times daily. folic acid (Folvite) 1 mg Take 1 tablet by 30 tablet 0 06/28/ 022 07/28/2022 Active Tablet mouth daily for 30 days. thiamine (thiamine Take 1 tablet by 30 tablet 0 06/29/202203/2022 Active mononitrate) 100 mg mouth daily for 30 days. OLANZapine (ZyPREXA) 5 mg Take 1 tablet by 60 tablet 0 022 07/27/2022 Active Tablet mouth 2 times daily for 30 days. nicotine (Nicoderm CQ) 21 Change 1 patch on 28 patch 3 2021 Active mg/24 hr Patch 24 hr the skin daily. Additional Information Patient not taking. Reported on 07/08/2022 prochlorperazine (Compazine) 10 Take 1 tablet by mouth 30 tablet 3 07/01/2022 Active mg Tablet every 6 hours as needed for Nausea. Additional Information Patient not taking. Reported on 07/12/2022 buprenorphine (Subutex) [address] 3 tablets 24 tablet 0 07/06 Active Tablet, SublingualIndications: under the tongue Neoplasm related pain, Substance daily. use disorder pregabalin (LYRICA) 150 mg Capsule Take 1 capsule by 60 capsule 0 07/06/2022 Active mouth 2 times daily. Additional Information Patient taking differently: 150 mg Oral 3 TIMES DAILY, Reported on 07/12/2022 divalproex EC (Depakote) 500 Take 500 mg by mouth 0 Active mg Tablet, Delayed Release daily. Increase to 2 (E.C.) times daily if tolerated ALPRAZolam (Xanax) 0.5 mg Take 1 tablet by mouth 3 18 tablet 0 07/08/2022 Active TabletIndications: Insomnia, times daily as needed for unspecified type Sleep. 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 Hepatitis C, chronic 12/31/2011 Lumbar disc herniation 05/04/2011 Resolved Problems Problem Noted Date Resolved Date Septic shock 06/25/2022 06/25/2022 Multifocal pneumonia 06/25/2022 06/25/2022 Encounters Date Type Specialty Care Team Description 07/12/2022 Infusion Hematology and Arrived Oncology 07/12/2022 Office Visit Hematology and Kanu Ash ma Oncology MD Chrissy neoplasm of bronchus Taim Horton of left upper lobe A, COOPERER 07/08/2022 TH Visit Palliative Care Kasi Lei, Insomnia , unspecified type; (TeleHealth) COOPERER Neoplasm related pain; Broglmartita, Substance use d isorder; Criselda, SREEDHAR Throat pain; Palliative care encounter; Anxiety 07/07/2022 Orders Only Hematology and Kanu Ash MD 07/06/2022 Telephone Palliative Care Criselda Zelaya, COOPERER 07/06/2022 Telephone Palliative Care Amelia Gupta RN 07/05/2022 Office Visit Hematology Kanu Larsen maant neoplasm of bronchus of left upper lobe; Oncology MD Chrissy Secondary malignant neoplasm of bone; Forauer, Tami Medication ma nagement A, COOPERER 07/01/2022 TH Visit Palliative Care Nathalie, Neoplasm rel ated pain; (TeleHealth) SREEDHAR Aburto Substance use disorder; Anxiety; Insomnia, unspe cified type; Palliative care encounter 07/01/2022 Telephone Palliative Care Amelia Gupta RN 06/30/2022 Telephone Radiation Oncology Rebecca James RN 06/29/2022 Telephone Radiation Oncology Richy Donald MD 06/29/2022 Telephone Radiation Oncology Rebecca James RN 06/21/2022 Orders Only Neurology Blazon, John R, DO 06/21/2022 Orders Only Neurology Blazon, John R, DO 06/21/2022 Orders Only Neurology Blazon, John R, DO 06/21/2022 Orders Only Neurology Blazon, John R, DO 06/21/2022 Orders Only Neurology Blazon, John R, DO 06/11/2022 Anesthesia Event Vascular Surgery Ren Skelton MD 06/09/2022 Telephone Palliative Care Melanie Whitmore RN 06/08/2022 Anesthesia Event Anesthesiology Bambi Dodge MD 06/08/2022 [facility], Cerebrovascular accident (CVA), unspecified mechanism; - Encounter Peter Tang MD Status post administration of tPA (rtPA) in a different facility within the last 24 hours prior to admission to current facility; 06/27/2022 Melanie Parra, Agitation; Fever, unspecified fever cause; Jeff Blanton, QT prolongat ion; Murmur, cardiac; Raiza Lemon, Mass of upper lobe of left lung; Lung mass Thomas Escobedo, Carlton Lambert, DO 06/08/2022 Hospital Emergency Medicine Melanie Parra, Encounter 06/08/2022 Ancillary Radiology Melanie Parra, Procedure 06/08/2022 Ancillary Radiology Melanie Parra, Procedure 06/08/2022 Notes Only Radiation Oncology Richy Donald MD 06/08/2022 Unscheduled Radiation Oncology Jacob Rebecca Primary malignant neoplasm of bronchus of left upper lobe; Encounter L, RN Fever, unspecif ied fever cause; SOB (shortness of breath) 06/08/2022 Telephone Palliative Care Melanie Whitmore, ANA 06/08/2022 Telephone Palliative Care Melanie Whitmore, ANA 06/07/2022 Infusion Hematology and Primary edgar pak Oncology neoplasm of bro nchus of left upper l obe 06/07/2022 Office Visit Hematology and Kanu Ash Primary ma cheryl Oncology MD Chrissy neoplasm of bronchus Refugio Hortona of left upper lobe A, COOPERER 06/06/2022 Telephone Palliative Care Kinsey Lucas Medication Refill B, COOPERER (Didn't refill Rx yesterday, in t he ED today. ) 06/05/2022 Notes Only Radiation Oncology Melanie Mendez MD 06/05/2022 Refill Palliative Care Enrique, Neoplasm rel ated pain; Abdelrahman Tang, Substance use disorder DO 06/05/2022 Refill Palliative Care Enrique, Neoplasm rel ated pain; Abdelrahman Tang, Substance use disorder DO 06/05/2022 Notes Only Radiation Oncology Melanie Mendez MD 06/05/2022 Telephone Palliative Care Kinsey Lucas Medication Refill B, COOPERER (Unable to fill at [facility] over the weekend) 06/04/2022 Office Visit Radiation Oncology Rodney Wharton Primary malignant S, MD neoplasm of bro nchus of left upper l obe 06/04/2022 Refill Palliative Care Melanie Whitmore, ANA 06/04/2022 Orders Only Palliative Care Ana Paula Sanabria, Substance use MD disorder 06/04/2022 Telephone Palliative Care Melanie Whitmore, ANA 06/03/2022 Orders Only Hematology and Tami Horton Drug abuse and Oncology A, COOPERER dependence 06/02/2022 TH Visit Palliative Care Broglio, Neoplasm rel ated pain; (TeleHealth) SREEDHAR Aburto Substance use disorder; Throat pain; Rash and other nonspecific skin eruption; Anxiety; Palliative care encounter 06/02/2022 Notes Only Radiation Oncology Rebecca James RN 06/02/2022 Telephone Palliative Care Melanie Whitmore, ANA 06/01/2022 Telephone Radiation Oncology Radha Jasmine, Other MANAGER ASSURANCE (Transportation plan) 05/31/2022 Infusion Hematology and Primary malig corneliust Oncology neoplasm of bro nchus of left upper l obe 05/31/2022 Office Visit Hematology and Tami Horton Mass of upp er lobe of left lung; Oncology A, COOPERER Cancer-related pain; Drug abuse and dependence; Transaminitis 05/31/2022 Notes Only Hematology and Radha Jasmine, Oncology MANAGER ASSURANCE 05/28/2022 Telephone Palliative Care Melanie Whitmore, ANA 05/27/2022 Office Visit Radiation Oncology Rodney Wharton Primary malignant SMD neoplasm of bro nchus of left upper l obe 05/27/2022 TH Visit Palliative Care Nathalie, Neoplasm rel ated pain; (TeleHealth) SREEDHAR Aburto Anxiety; Substance use d isorder; Palliative care encounter 05/26/2022 Telephone Hematology and Ashley Wilson Follow-up ( Folow up Oncology C, RN first time chemotherapy on 05/24/22) 05/24/2022 Infusion Hematology and Primary malig nant neoplasm of bronchus of left upper lobe; Oncology Mass of upper l obe of left lung 05/24/2022 Office Visit Hematology and Tami Horton Mass of upp er lobe of left lung; Oncology A, COOPERER Cancer-related pain; Drug abuse and dependence 05/24/2022 Notes Only Hematology and Radha Jasmine, Oncology MANAGER ASSURANCE 05/24/2022 Telephone Palliative Care Criselda Zleaya APRN 05/24/2022 Telephone Hematology and Tierney Oncology Clau Hughes RN 05/21/2022 Telephone Palliative Care Criselda Zelaya, SREEDHAR 05/21/2022 Telephone Palliative Care Amelia Gupta RN 05/21/2022 Telephone Palliative Care Melanie Whitmore, ANA 05/20/2022 Telephone Radiation Oncology Halle Horta 05/20/2022 Telephone Radiation Oncology Clau Monet RN 05/20/2022 Telephone Thoracic Surgery Rickie Sharif 05/19/2022 Telephone Palliative Care Melanie Whitmore, ANA 05/19/2022 Telephone Palliative Care Criselda Zelaya, SREEDHAR 05/18/2022 Infusion Hematology and Primary edgar pak Oncology neoplasm of bro nchus of left upper l obe 05/18/2022 Telephone Palliative Care Criselda Zelaya APRN 05/18/2022 Telephone Palliative Care Criselda Zelaya, SREEDHAR 05/18/2022 Refill Palliative Care Criselda Zelaya, SREEDHAR 05/18/2022 Refill Palliative Care Criselda Zelaya, SREEDHAR 05/18/2022 Telephone Palliative Care Amelia Gupta, RN Coordination 05/18/2022 Telephone Palliative Care Amelia Gupta RN 05/18/2022 Orders Only Palliative Care Michoacanoglio, Substance us e SREEDHAR Aburto disorder 05/17/2022 TH Visit Palliative Care Broglio, Neoplasm rel ated pain; (TeleHealth) SREEDHAR Aburto Substance use disorder; Anxiety; Insomnia, unspe cified type; Palliative care encounter 05/17/2022 Clinical Support Hematology and Kanu Ash Primar y malignant neoplasm of bronchus of left upper lobe; Oncology MD Chrissy Encounter for education; Tami Horton Drug abuse an d dependence A, COOPERER 05/17/2022 Orders Only Palliative Care Lópezio, Substance us e SREEDHAR Aburto disorder 05/15/2022 Telephone Palliative Care Carlota Man S, Medicatio n Problem COOPERER (Carley stated th at he wanted assistan ce in prescribing his medications so that he can have the m. Reporting that has his medicat ions and he is at nd s sister's house up the road and wa nts his mediations from her because she is crazy. Stated that he wanted to ca ll the police to h elp him get his med s. Reported last t aking his night meds when his came t o give them to [facility] at his sister's ho use. ) 05/15/2022 Telephone Hematology and Eliza Ness, Oncology Ro Rogers MD 05/14/2022 Telephone Palliative Care Cristela Soria Other (Wif e reports L, RN Carley has AMS, i s wandering.) 05/11/2022 Refill Palliative Care Criselda Zelaya APRN 05/11/2022 Refill Palliative Care Broglio, Substance us e disorder; SREEDHAR Aburto Neoplasm rela castro pain 05/10/2022 Ancillary Radiation Oncology Richy Donald MD 05/10/2022 Orders Only Hematology and Nilsa Kanu Primary ma cheryl Oncology MD Chrissy neoplasm of bro nchus of left upper l obe 05/07/2022 Hospital Radiology Bishop Kumari, Canceled (P -PATIENT Encounter MD ADMITTED/JULIA VALADEZ) 05/07/2022 TH Visit Palliative Care Michoacanoglio, Substance us e disorder; (TeleHealth) SREEDHAR Aburto Neoplasm rela castro pain; Palliative care encounter 05/07/2022 Orders Only Hematology and Kanu Ash Primary ma lignant Oncology MD Chrissy neoplasm of bro nchus of left upper l obe (Primary Dx) 05/07/2022 Orders Only Radiation Oncology Richy Donald Mass o f upper lobe MD Benji of left lung 05/06/2022 Anesthesia Event Gastroenterology Charlee Garcia MD 05/06/2022 Surgery Gastroenterology Heladio Woods UPPE R GI M, MD ENDOSCOPY 05/06/2022 Telephone Pallavi Cornejo M (Molecular [facility] [place] er testing CPT 814 55 is a covered benef it. ) 05/04/2022 [facility] [place], Lung mass (Prim shahram Dx); - Encounter Mulugeta Macias MD QT prolongation; 05/12/2022 Rosalie, Altered mental status, unspecified altered mental status type MD Lola Fisher Sean X, MD Twork, Gretchen E, MD 05/04/2022 Telephone Thoracic Surgery Lotus Steven RN 05/04/2022 Telephone Thoracic Surgery Lotus Steven RN 05/03/2022 Telephone Pulmonology Antonio Jeronimo MD 05/03/2022 Telephone Pulmonology Antonio Jeronimo MD 05/03/2022 Telephone Radiation Oncology Rebecca James RN 04/30/2022 Telephone Pulmonology Mara Richardson Other (possib cristian Kinney RN post-biopsy min st pain) 04/30/2022 Telephone Radiation Oncology Iris Gorman RN 04/29/2022 Surgery Gastroenterology BackAntonio bowman W D, MD ENDOBRONCHIAL ULTRASOUND (EBU S) GUIDED SAMPLING , 3+ NODES (WRVU 5.2 1) 04/29/2022 Anesthesia Event Gastroenterology Roel Beltrán MD 04/29/2022 [facility] Gastroenterology Antonio Jeronimo MD 04/29/2022 Telephone Pulmonology Sulma Hernandez 04/28/2022 Telephone Pulmonology Mara Richardson Pre Procedure Call ANA Kinney (Bronchoscopy) 04/27/2022 Telephone Pulmonology Mara Richardson RN 04/23/2022 Telephone Pulmonology Fifi Enriquez 04/21/2022 Office Visit Radiation Oncology Shabana Richy Mass o f upper lobe E, MD of left lung 04/21/2022 Orders Only Radiation Oncology CindyRichy sneed Mass o f upper lobe E, MD of left lung 04/21/2022 Orders Only Hematology and Storms, Stella Mass of up per lobe Oncology C, COOPERER of left lung 04/20/2022 Notes Only Pulmonology Fifi Cole RN 04/20/2022 Telephone Pulmonology Fifi Enriquez 04/20/2022 Telephone Pulmonology Fifi Enriquez 04/16/2022 Telephone Pulmonology Fifi Enriquez from Last 3 Months Family History Medical History Relation Comments Cancer Father prostate cancer Cancer Mother lung cancer Relation Status Comments Father Mother Social History Tobacco Use Types Packs/Day Years Used Date Current Every Day Smoker Cigarettes 0.5 40 Smokeless Tobacco: Never Used Tobacco Cessation: Ready to Quit: Yes Comments: 6 cigs daily Alcohol Use Standard [...] Date Recorded Male 05/04/2022 4:12 PM EDT Last Filed Vital Signs Vital Sign Reading Time Taken Comments Blood Pressure 164/95 07/12/2022 8:24 AM EDT Pulse 70 07/12/2022 8:24 AM EDT Temperature 36.5 ??C (97.7 ??F) 07/12/2022 8:24 AM EDT Respiratory Rate 18 07/12/2022 8:24 AM EDT Oxygen Saturation 100% 07/12/2022 8:24 AM EDT Inhaled Oxygen Concentration - - Weight 79.4 kg (175 lb) 07/12/2022 8:24 AM EDT Height 180.6 cm (5' 11.1) 07/12/2022 8:24 AM EDT Body Mass Index 24.34 07/12/2022 8:24 AM EDT Plan of Treatment Upcoming Encounters Date Type Specialty Care Team Description 07/14/2022 TH Visit (TeleHealth) Palliative Care Kian Zelaya [facility] [place], [place] [address] (Wo rk) 07/22/2022 TH Visit (TeleHealth) Palliative Care Benoit Lei [facility] [address] Criselda Zelaya COOPERER [facility] [place] [address] 08/12/2022 Office Visit Cardiology Storms, Hari R , MD [facility] [place] [address] Kit Bonilla MD [facility] [place] [address] Health Maintenance Due Date Last Done Comments Covid-19 Vaccine (#1) 1972 Pneumococcal Vaccine: At-Risk 5-64yrs (1 - PCV) 1973 Tdap adult 1986 Tetanus vaccine 1986 Colonoscopy 2012 Zoster vaccine (1 of 2) 2017 Influenza (Flu) vaccine (1 of 1 - Influenza standard 06/24/2022 series) Lipid Screening 06/08/2027 06/08/2022 HIV screen Completed 06/15/2022 Procedures Procedure Name Priority Date/Time Associated Diagnosis Comme nts SCAN, PERIPHERAL BLOOD Routine 06/27/2022 11:25 R esults for this AM EDT procedure are i n the results section. DIFFERENTIAL, Routine 06/27/2022 11:25 Results fo r this AUTOMATED AM EDT procedure are i n the results section. HEMOGRAM Routine 06/27/2022 11:25 Results for this AM EDT procedure are i n the results section. HC CBC,PLT & AUTO DIFF Routine 06/27/2022 11:25 AM EDT HC PHOSPHORUS, SERUM Routine 06/27/2022 6:11 Resu lts for this AM EDT procedure are i n the results section. HC MAGNESIUM, SERUM Routine 06/27/2022 6:11 Resul ts for this AM EDT procedure are i n the results section. HC VENIPUNCTURE Routine 06/27/2022 6:11 Results f or this AM EDT procedure are i n the results section. HC PHENOBARBITAL, Routine 06/27/2022 6:02 Results for this SERUM AM EDT procedure are i n the results section. EKG 12-LEAD Routine 06/26/2022 2:23 QT prolongation Results f or this PM EDT procedure are i n the results section. HC VENIPUNCTURE Routine 06/26/2022 11:24 Results for this AM EDT procedure are i n the results section. SCAN DOC: TELEMETRY 06/26/2022 8:22 Resul ts for this STRIPS AM EDT procedure are i n the results section. HC HCV QUANTIFICATION Routine 06/25/2022 1:17 Res ults for this PM EDT procedure are i n the results section. HC CORTISOL, BLOOD Routine 06/25/2022 8:20 Result s for this AM EDT procedure are i n the results section. DIFFERENTIAL, Routine 06/25/2022 12:45 Results fo r this AUTOMATED AM EDT procedure are i n the results section. HEMOGRAM Routine 06/25/2022 12:45 Results for this AM EDT procedure are i n the results section. HC PHOSPHORUS, SERUM Routine 06/25/2022 12:45 Res ults for this AM EDT procedure are i n the results section. HC MAGNESIUM, SERUM Routine 06/25/2022 12:45 Resu lts for this AM EDT procedure are i n the results section. HC CBC,PLT & AUTO DIFF Routine 06/25/2022 12:45 AM EDT BASIC METABOLIC PANEL Routine 06/25/2022 12:45 Re sults for this (NON-FASTING) AM EDT procedure are in the results section. HC PHENOBARBITAL, Routine 06/25/2022 12:45 Result s for this SERUM AM EDT procedure are i n the results section. SCAN, PERIPHERAL BLOOD Routine 06/24/2022 12:30 R esults for this AM EDT procedure are i n the results section. DIFFERENTIAL, Routine 06/24/2022 12:30 Results fo r this AUTOMATED AM EDT procedure are i n the results section. HEMOGRAM Routine 06/24/2022 12:30 Results for this AM EDT procedure are i n the results section. HC PHOSPHORUS, SERUM Routine 06/24/2022 12:30 Res ults for this AM EDT procedure are i n the results section. HC MAGNESIUM, SERUM Routine 06/24/2022 12:30 Resu lts for this AM EDT procedure are i n the results section. HC CBC,PLT & AUTO DIFF Routine 06/24/2022 12:30 AM EDT BASIC METABOLIC PANEL Routine 06/24/2022 12:30 Re sults for this (NON-FASTING) AM EDT procedure are in the results section. HC PHENOBARBITAL, Routine 06/24/2022 12:30 Result s for this SERUM AM EDT procedure are i n the results section. SCAN DOC: TELEMETRY 06/23/2022 12:48 Resu lts for this STRIPS PM EDT procedure are i n the results section. SCAN DOC: TELEMETRY 06/23/2022 12:48 Resu lts for this STRIPS PM EDT procedure are i n the results section. SCAN DOC: TELEMETRY 06/23/2022 12:48 Resu lts for this STRIPS PM EDT procedure are i n the results section. SCAN DOC: TELEMETRY 06/23/2022 12:48 Resu lts for this STRIPS PM EDT procedure are i n the results section. SCAN DOC: TELEMETRY 06/23/2022 12:48 Resu lts for this STRIPS PM EDT procedure are i n the results section. SCAN DOC: TELEMETRY 06/23/2022 12:48 Resu lts for this STRIPS PM EDT procedure are i n the results section. EXTUBATE Routine 06/23/2022 9:07 AM EDT SCAN DOC: TELEMETRY 06/23/2022 2:47 Resul ts for this STRIPS AM EDT procedure are i n the results section. SCAN, PERIPHERAL BLOOD Routine 06/23/2022 12:58 R esults for this AM EDT procedure are i n the results section. DIFFERENTIAL, Routine 06/23/2022 12:58 Results fo r this AUTOMATED AM EDT procedure are i n the results section. HEMOGRAM Routine 06/23/2022 12:58 Results for this AM EDT procedure are i n the results section. HC TRIGLYCERIDES Routine 06/23/2022 12:58 Results for this AM EDT procedure are i n the results section. HC PHOSPHORUS, SERUM Routine 06/23/2022 12:58 Res ults for this AM EDT procedure are i n the results section. HC MAGNESIUM, SERUM Routine 06/23/2022 12:58 Resu lts for this AM EDT procedure are i n the results section. HC CBC,PLT & AUTO DIFF Routine 06/23/2022 12:58 AM EDT BASIC METABOLIC PANEL Routine 06/23/2022 12:58 Re sults for this (NON-FASTING) AM EDT procedure are in the results section. ECHOCARDIOGRAM LMTD Routine 06/22/2022 3:20 Murmur, cardiac Re sults for this W/O CON W LMTD SPEC PM EDT procedur e are in DOPP, COLOR DOPP the results section. SCAN DOC: TELEMETRY 06/22/2022 7:48 Resul ts for this STRIPS AM EDT procedure are i n the results section. SCAN DOC: TELEMETRY 06/22/2022 12:39 Resu lts for this STRIPS AM EDT procedure are i n the results section. XR CHEST ONE VIEW STAT 06/21/2022 10:57 Result s for this PM EDT procedure are i n the results section. HC URINALYSIS ROUTINE Routine 06/21/2022 10:35 Re sults for this PM EDT procedure are i n the results section. HC BLOOD CULTURE- Routine 06/21/2022 10:15 Result s for this PM EDT procedure are i n the results section. HC BLOOD CULTURE- Routine 06/21/2022 10:15 Result s for this PM EDT procedure are i n the results section. LOWER RESPIRATORY Routine 06/21/2022 10:10 Result s for this CULTURE PM EDT procedure are i n the results section. HC GRAM STAIN FOR STAT 06/21/2022 10:10 Result s for this BACTERIA PM EDT procedure are i n the results section. SCAN DOC: TELEMETRY 06/21/2022 7:53 Resul ts for this STRIPS AM EDT procedure are i n the results section. T4, FREE Routine 06/21/2022 2:15 Results for this AM EDT procedure are i n the results section. TSH Routine 06/21/2022 2:15 Results for this AM EDT procedure are i n the results section. SCAN, PERIPHERAL BLOOD Routine 06/21/2022 2:15 Re sults for this AM EDT procedure are i n the results section. DIFFERENTIAL, Routine 06/21/2022 2:15 Results for this AUTOMATED AM EDT procedure are i n the results section. HEMOGRAM Routine 06/21/2022 2:15 Results for this AM EDT procedure are i n the results section. HC TRIGLYCERIDES Routine 06/21/2022 2:15 Results for this AM EDT procedure are i n the results section. HC PHOSPHORUS, SERUM Routine 06/21/2022 2:15 Resu lts for this AM EDT procedure are i n the results section. HC MAGNESIUM, SERUM Routine 06/21/2022 2:15 Resul ts for this AM EDT procedure are i n the results section. HC CBC,PLT & AUTO DIFF Routine 06/21/2022 2:15 AM EDT BASIC METABOLIC PANEL Routine 06/21/2022 2:15 Res ults for this (NON-FASTING) AM EDT procedure are in the results section. HC URINALYSIS ROUTINE Routine 06/19/2022 11:51 Re sults for this AM EDT procedure are i n the results section. XR CHEST ONE VIEW STAT 06/19/2022 10:52 Result s for this AM EDT procedure are i n the results section. HC PHENOBARBITAL, Routine 06/19/2022 10:35 Result s for this SERUM AM EDT procedure are i n the results section. SCAN, PERIPHERAL BLOOD Routine 06/19/2022 12:00 R esults for this AM EDT procedure are i n the results section. DIFFERENTIAL, Routine 06/19/2022 12:00 Results fo r this AUTOMATED AM EDT procedure are i n the results section. HEMOGRAM Routine 06/19/2022 12:00 Results for this AM EDT procedure are i n the results section. HC MAGNESIUM, SERUM Routine 06/19/2022 12:00 Resu lts for this AM EDT procedure are i n the results section. HC PHOSPHORUS, SERUM Routine 06/19/2022 12:00 Res ults for this AM EDT procedure are i n the results section. BASIC METABOLIC PANEL Routine 06/19/2022 12:00 Re sults for this (NON-FASTING) AM EDT procedure are in the results section. HC CBC,PLT & AUTO DIFF Routine 06/19/2022 12:00 AM EDT HC AMMONIA, PLASMA Routine 06/19/2022 12:00 Resul ts for this AM EDT procedure are i n the results section. HC SPUTUM CULTURE Routine 06/18/2022 9:50 Results for this PM EDT procedure are i n the results section. SCAN DOC: TELEMETRY 06/18/2022 11:21 Resu lts for this STRIPS AM EDT procedure are i n the results section. SCAN DOC: TELEMETRY 06/18/2022 2:03 Resul ts for this STRIPS AM EDT procedure are i n the results section. SCAN, PERIPHERAL BLOOD Routine 06/18/2022 12:06 R esults for this AM EDT procedure are i n the results section. DIFFERENTIAL, Routine 06/18/2022 12:06 Results fo r this AUTOMATED AM EDT procedure are i n the results section. HEMOGRAM Routine 06/18/2022 12:06 Results for this AM EDT procedure are i n the results section. HC CBC,PLT & AUTO DIFF Routine 06/18/2022 12:06 AM EDT HC MAGNESIUM, SERUM Routine 06/18/2022 12:06 Resu lts for this AM EDT procedure are i n the results section. HC PHOSPHORUS, SERUM Routine 06/18/2022 12:06 Res ults for this AM EDT procedure are i n the results section. BASIC METABOLIC PANEL Routine 06/18/2022 12:06 Re sults for this (NON-FASTING) AM EDT procedure are in the results section. HC AMMONIA, PLASMA Routine 06/18/2022 12:06 Resul ts for this AM EDT procedure are i n the results section. HC AMMONIA, PLASMA Timed 06/17/2022 2:04 Result s for this PM EDT procedure are i n the results section. SCAN, PERIPHERAL BLOOD Routine 06/17/2022 12:00 R esults for this AM EDT procedure are i n the results section. DIFFERENTIAL, Routine 06/17/2022 12:00 Results fo r this AUTOMATED AM EDT procedure are i n the results section. HEMOGRAM Routine 06/17/2022 12:00 Results for this AM EDT procedure are i n the results section. HC CBC,PLT & AUTO DIFF Routine 06/17/2022 12:00 AM EDT HC MAGNESIUM, SERUM Routine 06/17/2022 12:00 Resu lts for this AM EDT procedure are i n the results section. HC PHOSPHORUS, SERUM Routine 06/17/2022 12:00 Res ults for this AM EDT procedure are i n the results section. BASIC METABOLIC PANEL Routine 06/17/2022 12:00 Re sults for this (NON-FASTING) AM EDT procedure are in the results section. HC TRIGLYCERIDES Routine 06/17/2022 12:00 Results for this AM EDT procedure are i n the results section. HC AMMONIA, PLASMA Routine 06/17/2022 12:00 Resul ts for this AM EDT procedure are i n the results section. HC CORTISOL, BLOOD Routine 06/16/2022 4:34 Result s for this PM EDT procedure are i n the results section. HC [facility] ALDOSTERONE, Timed 06/16/2022 4:34 Resul ts for this SERUM PM EDT procedure are i n the results section. HC [facility] RENIN, PLASMA Timed 06/16/2022 4:34 Resu lts for this PM EDT procedure are i n the results section. HC AMMONIA, PLASMA Routine 06/16/2022 11:47 Resul ts for this AM EDT procedure are i n the results section. ELECTROLYTES PANEL Routine 06/16/2022 11:47 Resul ts for this AM EDT procedure are i n the results section. HC SODIUM, URINE Routine 06/16/2022 9:16 Results for this AM EDT procedure are i n the results section. SPECIFIC GRAVITY, Routine 06/16/2022 9:16 Results for this URINE AM EDT procedure are i n the results section. HC CHLORIDE, URINE 24 Routine 06/16/2022 9:16 Res ults for this HOUR AM EDT procedure are i n the results section. HC POTASSIUM, URINE Routine 06/16/2022 9:16 Resul ts for this AM EDT procedure are i n the results section. HC OSMOLALITY URINE Routine 06/16/2022 9:16 Resul ts for this AM EDT procedure are i n the results section. SCAN, PERIPHERAL BLOOD Routine 06/16/2022 12:15 R esults for this AM EDT procedure are i n the results section. DIFFERENTIAL, Routine 06/16/2022 12:15 Results fo r this AUTOMATED AM EDT procedure are i n the results section. HEMOGRAM Routine 06/16/2022 12:15 Results for this AM EDT procedure are i n the results section. HC TRIGLYCERIDES Routine 06/16/2022 12:15 Results for this AM EDT procedure are i n the results section. HC AMMONIA, PLASMA Routine 06/16/2022 12:15 Resul ts for this AM EDT procedure are i n the results section. HC MAGNESIUM, SERUM Routine 06/16/2022 12:15 Resu lts for this AM EDT procedure are i n the results section. HC PHOSPHORUS, SERUM Routine 06/16/2022 12:15 Res ults for this AM EDT procedure are i n the results section. BASIC METABOLIC PANEL Routine 06/16/2022 12:15 Re sults for this (NON-FASTING) AM EDT procedure are in the results section. HC CBC,PLT & AUTO DIFF Routine 06/16/2022 12:15 AM EDT SCAN DOC: TELEMETRY 06/15/2022 10:57 Resu lts for this STRIPS PM EDT procedure are i n the results section. HC BLOOD CULTURE- Routine 06/15/2022 8:00 Results for this PM EDT procedure are i n the results section. HC BLOOD CULTURE- Routine 06/15/2022 8:00 Results for this PM EDT procedure are i n the results section. URINE HOLD Routine 06/15/2022 7:38 Results for this PM EDT procedure are i n the results section. HC URINALYSIS ROUTINE Routine 06/15/2022 7:38 Res ults for this PM EDT procedure are i n the results section. MRI THORACIC SPINE STAT 06/15/2022 6:38 Result s for this WITH/WO CONTRAST PM EDT procedure a re in the results section. MRI CERVICAL SPINE STAT 06/15/2022 6:38 Result s for this WITH/WO CONTRAST PM EDT procedure a re in the results section. MRI BRAIN WWO CONTRAST STAT 06/15/2022 6:38 Re sults for this (GENERIC) PM EDT procedure are i n the results section. HC HIV SCREEN, 4TH Routine 06/15/2022 12:10 Resul ts for this GENERATION PM EDT procedure are i n the results section. BASIC METABOLIC PANEL Routine 06/15/2022 12:10 Re sults for this (NON-FASTING) PM EDT procedure are in the results section. HC AMMONIA, PLASMA Routine 06/15/2022 12:10 Resul ts for this PM EDT procedure are i n the results section. BLOOD GAS 2 ARTERIAL Routine 06/15/2022 8:43 Resu lts for this AM EDT procedure are i n the results section. HC POTASSIUM Routine 06/15/2022 8:42 Results for this AM EDT procedure are i n the results section. SCAN DOC: TELEMETRY 06/15/2022 6:57 Resul ts for this STRIPS AM EDT procedure are i n the results section. SCAN DOC: TELEMETRY 06/15/2022 6:57 Resul ts for this STRIPS AM EDT procedure are i n the results section. ENDOTRACHEAL TUBE Routine 06/15/2022 5:35 POSITION CHANGE AM EDT BLOOD GAS 2 ARTERIAL Routine 06/15/2022 5:18 Resu lts for this AM EDT procedure are i n the results section. XR CHEST ONE VIEW STAT 06/15/2022 4:51 Results for this AM EDT procedure are i n the results section. BLOOD GAS 2 ARTERIAL Routine 06/15/2022 4:02 Resu lts for this AM EDT procedure are i n the results section. BLOOD GAS 2 ARTERIAL Routine 06/15/2022 2:53 Resu lts for this AM EDT procedure are i n the results section. CK Routine 06/15/2022 2:10 Results for this AM EDT procedure are i n the results section. SCAN, PERIPHERAL BLOOD Routine 06/15/2022 2:10 Re sults for this AM EDT procedure are i n the results section. DIFFERENTIAL, Routine 06/15/2022 2:10 Results for this AUTOMATED AM EDT procedure are i n the results section. HEMOGRAM Routine 06/15/2022 2:10 Results for this AM EDT procedure are i n the results section. HC VALPROIC ACID Routine 06/15/2022 2:10 Results for this AM EDT procedure are i n the results section. HC AMMONIA, PLASMA Routine 06/15/2022 2:10 Result s for this AM EDT procedure are i n the results section. HC TRIGLYCERIDES Routine 06/15/2022 2:10 Results for this AM EDT procedure are i n the results section. HC MAGNESIUM, SERUM Routine 06/15/2022 2:10 Resul ts for this AM EDT procedure are i n the results section. HC PHOSPHORUS, SERUM Routine 06/15/2022 2:10 Resu lts for this AM EDT procedure are i n the results section. BASIC METABOLIC PANEL Routine 06/15/2022 2:10 Res ults for this (NON-FASTING) AM EDT procedure are in the results section. HC CBC,PLT & AUTO DIFF Routine 06/15/2022 2:10 AM EDT MISC HESTER TEST-HESTER Routine 06/14/2022 4:00 Resul ts for this PM EDT procedure are i n the results section. MISCELLANEOUS LAB Routine 06/14/2022 4:00 Results for this REQUEST PM EDT procedure are i n the results section. HC P[facility] ASPERGILLUS AG, Routine 06/14/2022 4:00 Re sults for this BAL PM EDT procedure are i n the results section. HC BODY FLUID CELL CT Routine 06/14/2022 4:00 Res ults for this W/DIFF PM EDT procedure are i n the results section. FUNGAL STAIN Routine 06/14/2022 1:57 Results for this PM EDT procedure are i n the results section. FUNGUS CULTURE Routine 06/14/2022 1:57 PM EDT HC FUNGUS CULTURE, Routine 06/14/2022 1:57 MISC SOURCE PM EDT HC MYCOBACTERIA Routine 06/14/2022 1:57 CULTURE PM EDT HC GRAM STAIN FOR Routine 06/14/2022 1:57 Results for this BACTERIA PM EDT procedure are i n the results section. BEDSIDE BRONCHOSCOPY Routine 06/14/2022 1:52 Resu lts for this PM EDT procedure are i n the results section. BLOOD GAS 2 ARTERIAL Routine 06/14/2022 8:07 Resu lts for this AM EDT procedure are i n the results section. LIPASE Routine 06/14/2022 5:50 Results for this AM EDT procedure are i n the results section. HEPATIC FUNCTION PANEL Routine 06/14/2022 5:50 Re sults for this AM EDT procedure are i n the results section. URIC ACID Routine 06/14/2022 5:50 Results for this AM EDT procedure are i n the results section. T4, FREE Routine 06/14/2022 5:50 Results for this AM EDT procedure are i n the results section. TSH Routine 06/14/2022 5:50 Results for this AM EDT procedure are i n the results section. HC POTASSIUM Routine 06/14/2022 5:50 Results for this AM EDT procedure are i n the results section. EKG 12-LEAD Routine 06/14/2022 4:27 QT prolongation Results f or this AM EDT procedure are i n the results section. SCAN, PERIPHERAL BLOOD Routine 06/14/2022 12:11 R esults for this AM EDT procedure are i n the results section. DIFFERENTIAL, Routine 06/14/2022 12:11 Results fo r this AUTOMATED AM EDT procedure are i n the results section. HEMOGRAM Routine 06/14/2022 12:11 Results for this AM EDT procedure are i n the results section. HC CBC,PLT & AUTO DIFF Routine 06/14/2022 12:11 AM EDT HC MAGNESIUM, SERUM Routine 06/14/2022 12:11 Resu lts for this AM EDT procedure are i n the results section. HC PHOSPHORUS, SERUM Routine 06/14/2022 12:11 Res ults for this AM EDT procedure are i n the results section. BASIC METABOLIC PANEL Routine 06/14/2022 12:11 Re sults for this (NON-FASTING) AM EDT procedure are in the results section. HC TRIGLYCERIDES Routine 06/14/2022 12:11 Results for this AM EDT procedure are i n the results section. SCAN DOC: TELEMETRY 06/13/2022 9:48 Resul ts for this STRIPS PM EDT procedure are i n the results section. SCAN DOC: TELEMETRY 06/13/2022 9:48 Resul ts for this STRIPS PM EDT procedure are i n the results section. SCAN DOC: TELEMETRY 06/13/2022 9:48 Resul ts for this STRIPS PM EDT procedure are i n the results section. MRI BRAIN WO CONTRAST Routine 06/13/2022 1:05 Res ults for this PM EDT procedure are i n the results section. HC HERPES SIMPLEX Routine 06/13/2022 9:43 Results for this VIRUS 1/2 BY PCR AM EDT procedure a re in the results section. SCAN DOC: TELEMETRY 06/13/2022 7:25 Resul ts for this STRIPS AM EDT procedure are i n the results section. SCAN DOC: TELEMETRY 06/13/2022 7:25 Resul ts for this STRIPS AM EDT procedure are i n the results section. SCAN, PERIPHERAL BLOOD Routine 06/13/2022 12:00 R esults for this AM EDT procedure are i n the results section. DIFFERENTIAL, Routine 06/13/2022 12:00 Results fo r this AUTOMATED AM EDT procedure are i n the results section. HEMOGRAM Routine 06/13/2022 12:00 Results for this AM EDT procedure are i n the results section. HC MAGNESIUM, SERUM Routine 06/13/2022 12:00 Resu lts for this AM EDT procedure are i n the results section. HC PHOSPHORUS, SERUM Routine 06/13/2022 12:00 Res ults for this AM EDT procedure are i n the results section. BASIC METABOLIC PANEL Routine 06/13/2022 12:00 Re sults for this (NON-FASTING) AM EDT procedure are in the results section. HC CBC,PLT & AUTO DIFF Routine 06/13/2022 12:00 AM EDT SCAN DOC: TELEMETRY 06/12/2022 9:06 Resul ts for this STRIPS PM EDT procedure are i n the results section. HC CREATINE Routine 06/12/2022 6:19 Results for this PHOSPHOKINASE, SERUM PM EDT procedu re are in the results section. HC UA W/OUT Routine 06/12/2022 5:34 Results for this MICROSCOPIC PM EDT procedure are i n the results section. HC SPUTUM CULTURE Routine 06/12/2022 5:33 Results for this PM EDT procedure are i n the results section. HC BLOOD CULTURE- STAT 06/12/2022 5:27 Results for this PM EDT procedure are i n the results section. HC BLOOD CULTURE- STAT 06/12/2022 5:27 Results for this PM EDT procedure are i n the results section. TRIGLYCERIDE Routine 06/12/2022 6:20 Results for this AM EDT procedure are i n the results section. HC POTASSIUM Routine 06/12/2022 6:20 Results for this AM EDT procedure are i n the results section. SCAN, PERIPHERAL BLOOD Routine 06/12/2022 12:25 R esults for this AM EDT procedure are i n the results section. DIFFERENTIAL, Routine 06/12/2022 12:25 Results fo r this AUTOMATED AM EDT procedure are i n the results section. HEMOGRAM Routine 06/12/2022 12:25 Results for this AM EDT procedure are i n the results section. HC MAGNESIUM, SERUM Routine 06/12/2022 12:25 Resu lts for this AM EDT procedure are i n the results section. HC PHOSPHORUS, SERUM Routine 06/12/2022 12:25 Res ults for this AM EDT procedure are i n the results section. BASIC METABOLIC PANEL Routine 06/12/2022 12:25 Re sults for this (NON-FASTING) AM EDT procedure are in the results section. HC CBC,PLT & AUTO DIFF Routine 06/12/2022 12:25 AM EDT LAB SCAN 06/12/2022 12:00 Results for this AM EDT procedure are i n the results section. HC AMMONIA, PLASMA Routine 06/11/2022 10:25 Resul ts for this PM EDT procedure are i n the results section. XR CHEST ONE VIEW STAT 06/11/2022 9:52 Results for this PM EDT procedure are i n the results section. INTUBATION - ANES ONLY Routine 06/11/2022 9:14 Re sults for this PM EDT procedure are i n the results section. XR ABDOMEN 1 VIEW Routine 06/11/2022 7:59 Results for this PM EDT procedure are i n the results section. BASIC METABOLIC PANEL Routine 06/11/2022 6:29 Res ults for this (NON-FASTING) PM EDT procedure are in the results section. EKG 12-LEAD Routine 06/11/2022 5:12 Results for this PM EDT procedure are i n the results section. EXTUBATE Routine 06/11/2022 3:46 PM EDT BLOOD GAS 2 ARTERIAL Routine 06/11/2022 11:34 Res ults for this AM EDT procedure are i n the results section. HC PHOSPHORUS, SERUM Routine 06/11/2022 11:28 Res ults for this AM EDT procedure are i n the results section. HC MAGNESIUM, SERUM Routine 06/11/2022 11:28 Resu lts for this AM EDT procedure are i n the results section. HC VALPROIC ACID Routine 06/11/2022 11:28 Results for this AM EDT procedure are i n the results section. DUPLEX FOR DVT BILAT Routine 06/11/2022 10:57 Fever, unspecifi ed Results for this LEGS AM EDT fever cause procedure are i n the results section. BASIC METABOLIC PANEL Routine 06/11/2022 10:35 Re sults for this (NON-FASTING) AM EDT procedure are in the results section. EKG 12-LEAD Routine 06/11/2022 10:24 Agitation Results for this AM EDT procedure are i n the results section. POCT GLUCOSE Routine 06/11/2022 7:08 Results for this AM EDT procedure are i n the results section. BASIC METABOLIC PANEL Routine 06/11/2022 3:30 Res ults for this (NON-FASTING) AM EDT procedure are in the results section. POCT GLUCOSE Routine 06/11/2022 12:00 Results for this AM EDT procedure are i n the results section. SCAN, PERIPHERAL BLOOD Routine 06/11/2022 12:00 R esults for this AM EDT procedure are i n the results section. DIFFERENTIAL, Routine 06/11/2022 12:00 Results fo r this AUTOMATED AM EDT procedure are i n the results section. HEMOGRAM Routine 06/11/2022 12:00 Results for this AM EDT procedure are i n the results section. HC CBC,PLT & AUTO DIFF Routine 06/11/2022 12:00 AM EDT HC PHOSPHORUS, SERUM Routine 06/11/2022 12:00 Res ults for this AM EDT procedure are i n the results section. HC MAGNESIUM, SERUM Routine 06/11/2022 12:00 Resu lts for this AM EDT procedure are i n the results section. SCAN DOC: TELEMETRY 06/10/2022 10:38 Resu lts for this STRIPS PM EDT procedure are i n the results section. POCT GLUCOSE Routine 06/10/2022 7:38 Results for this PM EDT procedure are i n the results section. BASIC METABOLIC PANEL Routine 06/10/2022 7:30 Res ults for this (NON-FASTING) PM EDT procedure are in the results section. HC MRSA DETECTION BY Routine 06/10/2022 7:28 Resu lts for this PCR PM EDT procedure are i n the results section. POCT GLUCOSE Routine 06/10/2022 3:54 Results for this PM EDT procedure are i n the results section. EEG CONTINUOUS Routine 06/10/2022 2:00 Results fo r this MONITORING INPATIENT PM EDT procedu re are in the results section. ENCEPHALOPATHY AUTOAB Routine 06/10/2022 12:50 Re sults for this EVAL, CSF PM EDT procedure are i n the results section. CSF CELL COUNT Routine 06/10/2022 12:50 Results f or this PM EDT procedure are i n the results section. CSF DESC 4 Routine 06/10/2022 12:50 Results for this PM EDT procedure are i n the results section. CSF DESC 3 Routine 06/10/2022 12:50 Results for this PM EDT procedure are i n the results section. CSF DESC 2 Routine 06/10/2022 12:50 Results for this PM EDT procedure are i n the results section. CSF DESC 1 Routine 06/10/2022 12:50 Results for this PM EDT procedure are i n the results section. HC CSF CELL COUNT Routine 06/10/2022 12:50 PM EDT HC GLUCOSE, CSF Routine 06/10/2022 12:50 Results for this PM EDT procedure are i n the results section. HC PROTEIN, CSF Routine 06/10/2022 12:50 Results for this PM EDT procedure are i n the results section. POCT GLUCOSE Routine 06/10/2022 12:49 Results for this PM EDT procedure are i n the results section. HC VANCOMYCIN Timed 06/10/2022 12:39 Results fo r this PM EDT procedure are i n the results section. HC CREATINE Routine 06/10/2022 12:39 Results for this PHOSPHOKINASE, SERUM PM EDT procedu re are in the results section. BASIC METABOLIC PANEL Routine 06/10/2022 12:39 Re sults for this (NON-FASTING) PM EDT procedure are in the results section. HC PHOSPHORUS, SERUM Routine 06/10/2022 12:39 Res ults for this PM EDT procedure are i n the results section. HC MAGNESIUM, SERUM Routine 06/10/2022 12:39 Resu lts for this PM EDT procedure are i n the results section. LUMBAR PUNCTURE Routine 06/10/2022 12:17 Results for this PM EDT procedure are i n the results section. BODY FLUID HOLD Routine 06/10/2022 12:14 Results for this PM EDT procedure are i n the results section. POCT GLUCOSE Routine 06/10/2022 9:01 Results for this AM EDT procedure are i n the results section. BLOOD GAS 2 ARTERIAL Routine 06/10/2022 7:54 Resu lts for this AM EDT procedure are i n the results section. POCT GLUCOSE Routine 06/10/2022 3:37 Results for this AM EDT procedure are i n the results section. HC PH DETERMINATION, Routine 06/10/2022 1:40 Resu lts for this ARTERIAL AM EDT procedure are i n the results section. HC L-LACTATE Routine 06/10/2022 1:40 Results for this AM EDT procedure are i n the results section. POCT GLUCOSE Routine 06/10/2022 12:20 Results for this AM EDT procedure are i n the results section. SCAN, PERIPHERAL BLOOD Routine 06/10/2022 12:20 R esults for this AM EDT procedure are i n the results section. CORTISOL Routine 06/10/2022 12:20 Results for this AM EDT procedure are i n the results section. SALICYLATE Routine 06/10/2022 12:20 Results for this AM EDT procedure are i n the results section. HOMOCYSTEINE TOTAL, Routine 06/10/2022 12:20 Resu lts for this PLASMA AM EDT procedure are i n the results section. FOLATE, SERUM Routine 06/10/2022 12:20 Results fo r this AM EDT procedure are i n the results section. T4, FREE Routine 06/10/2022 12:20 Results for this AM EDT procedure are i n the results section. DIFFERENTIAL, Routine 06/10/2022 12:20 Results fo r this AUTOMATED AM EDT procedure are i n the results section. HEMOGRAM Routine 06/10/2022 12:20 Results for this AM EDT procedure are i n the results section. HC THYROID STIMULATING Routine 06/10/2022 12:20 R esults for this HORMONE, SERUM AM EDT procedure are in the results section. HC CBC,PLT & AUTO DIFF Routine 06/10/2022 12:20 AM EDT HC PHOSPHORUS, SERUM Routine 06/10/2022 12:20 Res ults for this AM EDT procedure are i n the results section. HC MAGNESIUM, SERUM Routine 06/10/2022 12:20 Resu lts for this AM EDT procedure are i n the results section. BASIC METABOLIC PANEL Routine 06/10/2022 12:20 Re sults for this (NON-FASTING) AM EDT procedure are in the results section. LUMBAR PUNCTURE Routine 06/09/2022 11:24 Results for this PM EDT procedure are i n the results section. HC FUNGUS CULTURE, Routine 06/09/2022 10:29 MISC SOURCE PM EDT HC CRYPTOCOCCAL Routine 06/09/2022 10:29 Results for this ANTIGEN PM EDT procedure are i n the results section. HC [facility] MO-ENTEROVIRUS Routine 06/09/2022 10:29 Re sults for this AMPLIFIED PROBE PM EDT procedure ar e in the results section. HC H VARICELLA Routine 06/09/2022 10:29 Results for this ZOSTER PCR PM EDT procedure are i n the results section. HC HERPES SIMPLEX Routine 06/09/2022 10:29 Result s for this VIRUS 1/2 BY PCR PM EDT procedure a re in the results section. HC BUILDING TECH CULTURE Routine 06/09/2022 10:29 Results f or this PM EDT procedure are i n the results section. POCT GLUCOSE Routine 06/09/2022 8:33 Results for this PM EDT procedure are i n the results section. CT HEAD WO CONTRAST Routine 06/09/2022 5:58 Resul ts for this (GENERIC) PM EDT procedure are i n the results section. TSH Routine 06/09/2022 5:35 Results for this PM EDT procedure are i n the results section. HC L-LACTATE Routine 06/09/2022 5:35 Results for this PM EDT procedure are i n the results section. HC PHOSPHORUS, SERUM Routine 06/09/2022 5:35 Resu lts for this PM EDT procedure are i n the results section. HC MAGNESIUM, SERUM Routine 06/09/2022 5:35 Resul ts for this PM EDT procedure are i n the results section. BASIC METABOLIC PANEL Routine 06/09/2022 5:35 Res ults for this (NON-FASTING) PM EDT procedure are in the results section. NON-CREDIT ADVISOR FINAL REPORT Routine 06/09/2022 5:08 Resu lts for this PM EDT procedure are i n the results section. CYTOPATHOLOGY Routine 06/09/2022 5:08 Results for this NON-GYNECOLOGICAL PM EDT procedure are in the results section. INSERT ARTERIAL LINE Routine 06/09/2022 4:19 Resu lts for this PM EDT procedure are i n the results section. POCT GLUCOSE Routine 06/09/2022 3:22 Results for this PM EDT procedure are i n the results section. HC L-LACTATE Timed 06/09/2022 2:10 Results for this PM EDT procedure are i n the results section. XR ABDOMEN 1 VIEW Routine 06/09/2022 2:00 Results for this PM EDT procedure are i n the results section. XR CHEST ONE VIEW Routine 06/09/2022 2:00 Results for this PM EDT procedure are i n the results section. 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 HC PHOSPHORUS, SERUM Routine 06/09/2022 12:15 Res ults for this PM EDT procedure are i n the results section. HC MAGNESIUM, SERUM Routine 06/09/2022 12:15 Resu lts for this PM EDT procedure are i n the results section. BASIC METABOLIC PANEL Routine 06/09/2022 12:15 Re sults for this (NON-FASTING) PM EDT procedure are in the results section. POCT GLUCOSE Routine 06/09/2022 12:02 Results for this PM EDT procedure are i n the results section. HC PHOSPHORUS, SERUM Routine 06/09/2022 10:50 Res ults for this AM EDT procedure are i n the results section. HC MAGNESIUM, SERUM Routine 06/09/2022 10:50 Resu lts for this AM EDT procedure are i n the results section. BASIC METABOLIC PANEL Routine 06/09/2022 10:50 Re sults for this (NON-FASTING) AM EDT procedure are in the results section. HC BLOOD CULTURE- STAT 06/09/2022 10:50 Result s for this AM EDT procedure are i n the results section. HC AMMONIA, PLASMA Routine 06/09/2022 9:45 Result s for this AM EDT procedure are i n the results section. HC BLOOD CULTURE- STAT 06/09/2022 9:45 Results for this AM EDT procedure are i n the results section. AIRWAY CLEARANCE PER Routine 06/09/2022 9:35 RT PROTOCOL AM EDT HC SPUTUM CULTURE Routine 06/09/2022 9:20 Results for this AM EDT procedure are i n the results section. URINE HOLD Routine 06/09/2022 9:19 Results for this AM EDT procedure are i n the results section. HC URINALYSIS ROUTINE Routine 06/09/2022 9:19 Res ults for this AM EDT procedure are i n the results section. HC L-LACTATE Routine 06/09/2022 7:50 Results for this AM EDT procedure are i n the results section. POCT GLUCOSE Routine 06/09/2022 7:48 Results for this AM EDT procedure are i n the results section. POCT GLUCOSE Routine 06/09/2022 5:28 Results for this AM EDT procedure are i n the results section. BLOOD GAS 2 ARTERIAL Routine 06/09/2022 5:04 Resu lts for this AM EDT procedure are i n the results section. SALICYLATE Routine 06/09/2022 4:30 Results for this AM EDT procedure are i n the results section. URIC ACID Routine 06/09/2022 4:30 Results for this AM EDT procedure are i n the results section. HC PH DETERMINATION, Routine 06/09/2022 4:30 Resu lts for this ARTERIAL AM EDT procedure are i n the results section. HC PHOSPHORUS, SERUM Routine 06/09/2022 4:30 Resu lts for this AM EDT procedure are i n the results section. BASIC METABOLIC PANEL Routine 06/09/2022 4:30 Res ults for this (NON-FASTING) AM EDT procedure are in the results section. HC L-LACTATE Routine 06/09/2022 4:30 Results for this AM EDT procedure are i n the results section. U TRICYCLICS Routine 06/09/2022 2:29 Results for this CONFIRMATION AM EDT procedure are i n the results section. THC (MARIJUANA), Routine 06/09/2022 2:29 Results for this URINE, CONFIRMATION AM EDT procedur e are in the results section. OPIOIDS CONFIRMATION Routine 06/09/2022 2:29 Resu lts for this PANEL, URINE AM EDT procedure are i n the results section. RAPID DRUG SCREEN W/ Routine 06/09/2022 2:29 Resu lts for this CONFIRMATION, URINE AM EDT procedur e are in the results section. RAPID DRUG SCREEN, Routine 06/09/2022 2:29 Result s for this URINE (AKIRA REQUEST) AM EDT procedur e are in the results section. HC PHOSPHORUS, SERUM Routine 06/09/2022 1:30 Resu lts for this AM EDT procedure are i n the results section. HC MAGNESIUM, SERUM Routine 06/09/2022 1:30 Resul ts for this AM EDT procedure are i n the results section. BASIC METABOLIC PANEL Routine 06/09/2022 1:30 Res ults for this (NON-FASTING) AM EDT procedure are in the results section. BLOOD GAS 2 ARTERIAL Routine 06/09/2022 1:10 Resu lts for this AM EDT procedure are i n the results section. TYPE AND SCREEN STAT 06/09/2022 12:37 Results for this VALIDITY AM EDT procedure are i n the results section. ABORH RECHECK STATUS STAT 06/09/2022 12:37 Res ults for this AM EDT procedure are i n the results section. ANTIBODY SCREEN MANUAL STAT 06/09/2022 12:37 R esults for this AM EDT procedure are i n the results section. ABORH TYPE MANUAL STAT 06/09/2022 12:37 Result s for this AM EDT procedure are i n the results section. PTH Routine 06/09/2022 12:30 Results for this AM EDT procedure are i n the results section. SCAN, PERIPHERAL BLOOD Routine 06/09/2022 12:30 R esults for this AM EDT procedure are i n the results section. DIFFERENTIAL, Routine 06/09/2022 12:30 Results fo r this AUTOMATED AM EDT procedure are i n the results section. HEMOGRAM Routine 06/09/2022 12:30 Results for this AM EDT procedure are i n the results section. HC PARTIAL Routine 06/09/2022 12:30 Results for this THROMBOPLASTIN TIME AM EDT procedur e are in the results section. HC PROTHROMBIN TIME Routine 06/09/2022 12:30 Resu lts for this AM EDT procedure are i n the results section. HC CBC,PLT & AUTO DIFF Routine 06/09/2022 12:30 AM EDT BLOOD GAS 2 ARTERIAL Routine 06/08/2022 11:27 Res ults for this PM EDT procedure are i n the results section. EKG 12-LEAD STAT 06/08/2022 10:55 Results for this PM EDT procedure are i n the results section. CT CHEST WO CONTRAST STAT 06/08/2022 10:53 Res ults for this (GENERIC) PM EDT procedure are i n the results section. CT HEAD WO CONTRAST STAT 06/08/2022 10:53 Resu lts for this (GENERIC) PM EDT procedure are i n the results section. CT CAROTIDS AND KOYUK STAT 06/08/2022 10:53 R esults for this OF NUÑEZ W CONTRAST PM EDT procedu re are in the results section. CK STAT 06/08/2022 10:44 Results for this PM EDT procedure are i n the results section. HEMOGLOBIN A1C STAT 06/08/2022 10:44 Results f or this PM EDT procedure are i n the results section. LDL CHOLESTEROL, STAT 06/08/2022 10:44 Results for this DIRECT PM EDT procedure are i n the results section. TROPONIN STAT 06/08/2022 10:44 Results for this PM EDT procedure are i n the results section. TRIGLYCERIDE STAT 06/08/2022 10:44 Results for this PM EDT procedure are i n the results section. HDL/CHOL PROFILE STAT 06/08/2022 10:44 Results for this PM EDT procedure are i n the results section. SCAN, PERIPHERAL BLOOD STAT 06/08/2022 10:44 R esults for this PM EDT procedure are i n the results section. DIFFERENTIAL, STAT 06/08/2022 10:44 Results fo r this AUTOMATED PM EDT procedure are i n the results section. HEMOGRAM STAT 06/08/2022 10:44 Results for this PM EDT procedure are i n the results section. BASIC METABOLIC PANEL STAT 06/08/2022 10:44 Re sults for this (NON-FASTING) PM EDT procedure are in the results section. HC PARTIAL STAT 06/08/2022 10:44 Results for this THROMBOPLASTIN TIME PM EDT procedur e are in the results section. HC PROTHROMBIN TIME STAT 06/08/2022 10:44 Resu lts for this PM EDT procedure are i n the results section. HC CBC,PLT & AUTO DIFF STAT 06/08/2022 10:44 PM EDT PREALBUMIN Routine 06/08/2022 10:34 Results for this PM EDT procedure are i n the results section. GOLD TUBE HOLD Routine 06/08/2022 10:34 Results f or this PM EDT procedure are i n the results section. POCT GLUCOSE Routine 06/08/2022 10:14 Results for this PM EDT procedure are i n the results section. FILM LIBRARY STORAGE Routine 06/08/2022 6:24 Resu lts for this ONLY CT HEAD AND SPINE PM EDT proce dure are in the results section. FILM LIBRARY STORAGE Routine 06/08/2022 6:23 Resu lts for this ONLY DX CHEST PM EDT procedure are in the results section. LAB SCAN 06/07/2022 12:00 Results for this AM EDT procedure are i n the results section. RAPID DRUG SCREEN, Routine 06/02/2022 10:18 Resul ts for this URINE (AKIRA REQUEST) AM EDT procedur e are in the results section. ALLERGY SCAN 05/31/2022 12:00 AM EDT LAB SCAN 05/24/2022 12:00 Results for this AM EDT procedure are i n the results section. LAB SCAN 05/20/2022 12:00 Results for this AM EDT procedure are i n the results section. LAB SCAN 05/17/2022 12:00 Results for this AM EDT procedure are i n the results section. LAB SCAN 05/17/2022 12:00 Results for this AM EDT procedure are i n the results section. BASIC METABOLIC PANEL Routine 05/12/2022 6:17 Res ults for this (NON-FASTING) AM EDT procedure are in the results section. HC VENIPUNCTURE Routine 05/12/2022 6:17 Results f or this AM EDT procedure are i n the results section. SCAN DOC: TELEMETRY 05/12/2022 4:41 STRIPS AM EDT SCAN DOC: TELEMETRY 05/11/2022 4:33 STRIPS PM EDT BLOOD GAS 2 VENOUS Routine 05/11/2022 9:06 Result s for this AM EDT procedure are i n the results section. POCT GLUCOSE Routine 05/11/2022 9:02 Results for this AM EDT procedure are i n the results section. SCAN DOC: TELEMETRY 05/11/2022 7:42 STRIPS AM EDT SCAN DOC: TELEMETRY 05/11/2022 5:58 STRIPS AM EDT DIFFERENTIAL, Routine 05/11/2022 4:50 Results for this AUTOMATED AM EDT procedure are i n the results section. HEMOGRAM Routine 05/11/2022 4:50 Results for this AM EDT procedure are i n the results section. COMPREHENSIVE Routine 05/11/2022 4:50 Results for this METABOLIC PANEL AM EDT procedure ar e in (NON-FASTING) the results section. HC VENIPUNCTURE Routine 05/11/2022 4:50 AM EDT RED TUBE HOLD Routine 05/10/2022 10:50 Results fo r this PM EDT procedure are i n the results section. LAVENDER TUBE HOLD Routine 05/10/2022 10:50 Resul ts for this PM EDT procedure are i n the results section. MORGAN TUBE HOLD Routine 05/10/2022 10:50 Results f or this PM EDT procedure are i n the results section. GOLD TUBE HOLD Routine 05/10/2022 10:50 Results f or this PM EDT procedure are i n the results section. BLUE TUBE HOLD Routine 05/10/2022 10:50 Results f or this PM EDT procedure are i n the results section. HC TROPONIN T STAT 05/10/2022 10:50 Results fo r this PM EDT procedure are i n the results section. EKG 12-LEAD Routine 05/10/2022 10:33 Results for this PM EDT procedure are i n the results section. CT RAD ONC CHEST Routine 05/10/2022 12:09 Results for this INTERP ONLY PM EDT procedure are i n the results section. BASIC METABOLIC PANEL Routine 05/10/2022 2:52 Res ults for this (NON-FASTING) AM EDT procedure are in the results section. HC VENIPUNCTURE Routine 05/10/2022 2:52 Results f or this AM EDT procedure are i n the results section. BASIC METABOLIC PANEL Routine 05/09/2022 5:45 Res ults for this (NON-FASTING) AM EDT procedure are in the results section. HC HEMOGRAM Routine 05/09/2022 5:45 Results for this AM EDT procedure are i n the results section. AMPHETAMINE, URINE, Routine 05/09/2022 4:26 Resul ts for this CONFIRMATION AM EDT procedure are i n the results section. OPIOIDS CONFIRMATION Routine 05/09/2022 4:26 Resu lts for this PANEL, URINE AM EDT procedure are i n the results section. RAPID DRUG SCREEN W/ Routine 05/09/2022 4:26 Resu lts for this CONFIRMATION, URINE AM EDT procedur e are in the results section. RAPID DRUG SCREEN, Routine 05/09/2022 4:26 Result s for this URINE (AKIRA REQUEST) AM EDT procedur e are in the results section. RAPID DRUG SCREEN W/O Routine 05/09/2022 4:25 Res ults for this CONFIRMATION, URINE AM EDT procedur e are in the results section. RAPID DRUG SCREEN, Routine 05/09/2022 4:25 Result s for this URINE (AKIRA REQUEST) AM EDT procedur e are in the results section. BASIC METABOLIC PANEL Routine 05/08/2022 8:19 Res ults for this (NON-FASTING) AM EDT procedure are in the results section. HC VENIPUNCTURE Routine 05/08/2022 8:19 Results f or this AM EDT procedure are i n the results section. MRI BRACHIAL PLEXUS Routine 05/07/2022 8:25 Resul ts for this LEFT WITH CONTRAST PM EDT procedure are in the results section. EKG 12-LEAD STAT 05/07/2022 2:42 QT prolongation Results f or this PM EDT procedure are i n the results section. AMPHETAMINE, URINE, Routine 05/07/2022 10:00 Resu lts for this CONFIRMATION AM EDT procedure are i n the results section. THC (MARIJUANA), Routine 05/07/2022 10:00 Results for this URINE, CONFIRMATION AM EDT procedur e are in the results section. OPIOIDS CONFIRMATION Routine 05/07/2022 10:00 Res ults for this PANEL, URINE AM EDT procedure are i n the results section. RAPID DRUG SCREEN W/ Routine 05/07/2022 10:00 Res ults for this CONFIRMATION, URINE AM EDT procedur e are in the results section. RAPID DRUG SCREEN, Routine 05/07/2022 10:00 Resul ts for this URINE (AKIRA REQUEST) AM EDT procedur e are in the results section. BASIC METABOLIC PANEL Routine 05/07/2022 9:45 Res ults for this (NON-FASTING) AM EDT procedure are in the results section. HC VENIPUNCTURE Routine 05/07/2022 9:45 Results f or this AM EDT procedure are i n the results section. POCT GLUCOSE Routine 05/06/2022 10:45 Results for this AM EDT procedure are i n the results section. UPPER EUS- ENDOSCOPIC 05/06/2022 10:00 ALBERTO Lung Ca ULTRASOUND AM EDT EGD, UPPER GI 05/06/2022 10:00 ALBERTO Lung Ca ENDOSCOPY AM EDT UPPER EUS-ENDOSCOPIC Routine 05/06/2022 9:33 Resu lts for this ULTRASOUND AM EDT procedure are i n the results section. BASIC METABOLIC PANEL Routine 05/06/2022 6:07 Res ults for this (NON-FASTING) AM EDT procedure are in the results section. HC VENIPUNCTURE Routine 05/06/2022 6:07 Results f or this AM EDT procedure are i n the results section. CT ABDOMEN AND PELVIS Routine 05/05/2022 11:27 Re sults for this W CONTRAST AM EDT procedure are i n the results section. MRI BRAIN WWO CONTRAST STAT 05/05/2022 8:51 Re sults for this (GENERIC) AM EDT procedure are i n the results section. GOLD TUBE HOLD STAT 05/05/2022 7:20 Results fo r this AM EDT procedure are i n the results section. HC LACTIC STAT 05/05/2022 7:20 Results for this DEHYDROGENASE AM EDT procedure are in the results section. CMP W/FASTING GLUCOSE STAT 05/05/2022 7:20 Res ults for this AM EDT procedure are i n the results section. HC HEMOGRAM STAT 05/05/2022 7:20 Results for this AM EDT procedure are i n the results section. MRI THORACIC SPINE STAT 05/04/2022 9:40 Result s for this WITH/WO CONTRAST PM EDT procedure a re in the results section. MRI CERVICAL SPINE STAT 05/04/2022 9:40 Result s for this WITH/WO CONTRAST PM EDT procedure a re in the results section. CT CHEST W CONTRAST STAT 05/04/2022 5:59 Resul ts for this PM EDT procedure are i n the results section. PHOSPHORUS STAT 05/04/2022 3:50 Results for this PM EDT procedure are i n the results section. MAGNESIUM STAT 05/04/2022 3:50 Results for this PM EDT procedure are i n the results section. DIFFERENTIAL, STAT 05/04/2022 3:50 Results for this AUTOMATED PM EDT procedure are i n the results section. HEMOGRAM STAT 05/04/2022 3:50 Results for this PM EDT procedure are i n the results section. HC TROPONIN T STAT 05/04/2022 3:50 Results for this PM EDT procedure are i n the results section. COMPREHENSIVE STAT 05/04/2022 3:50 Results for this METABOLIC PANEL PM EDT procedure ar e in (NON-FASTING) the results section. HC CBC,PLT & AUTO DIFF STAT 05/04/2022 3:50 PM EDT XR CHEST PA AND STAT 05/04/2022 3:38 Results f or this LATERAL PM EDT procedure are i n the results section. EKG 12-LEAD STAT 05/04/2022 3:36 Results for this PM EDT procedure are i n the results section. XR CHEST ONE VIEW STAT 04/29/2022 4:25 Results for this PM EDT procedure are i n the results section. NON-CREDIT ADVISOR FINAL REPORT Routine 04/29/2022 12:41 Res ults for this PM EDT procedure are i n the results section. NON-CREDIT ADVISOR FINAL REPORT Routine 04/29/2022 12:41 Res ults for this PM EDT procedure are i n the results section. NON-CREDIT ADVISOR FINAL REPORT Routine 04/29/2022 12:41 Res ults for this PM EDT procedure are i n the results section. NON-CREDIT ADVISOR FINAL REPORT Routine 04/29/2022 12:41 Res ults for this PM EDT procedure are i n the results section. NON-CREDIT ADVISOR FINAL REPORT Routine 04/29/2022 12:41 Res ults for this PM EDT procedure are i n the results section. NON-CREDIT ADVISOR FINAL REPORT Routine 04/29/2022 12:41 Res ults for this PM EDT procedure are i n the results section. SOLID TUMOR NGS PANEL Routine 04/29/2022 12:41 PM EDT CYTOPATHOLOGY Routine 04/29/2022 12:41 Results fo r this NON-GYNECOLOGICAL PM EDT procedure are in the results section. CYTOPATHOLOGY Routine 04/29/2022 12:41 Results fo r this NON-GYNECOLOGICAL PM EDT procedure are in the results section. CYTOPATHOLOGY Routine 04/29/2022 12:41 Results fo r this NON-GYNECOLOGICAL PM EDT procedure are in the results section. CYTOPATHOLOGY Routine 04/29/2022 12:41 Results fo r this NON-GYNECOLOGICAL PM EDT procedure are in the results section. CYTOPATHOLOGY Routine 04/29/2022 12:41 Results fo r this NON-GYNECOLOGICAL PM EDT procedure are in the results section. CYTOPATHOLOGY Routine 04/29/2022 12:41 Results fo r this NON-GYNECOLOGICAL PM EDT procedure are in the results section. BRONCH, W 04/29/2022 11:35 Lung mass ENDOBRONCHIAL AM EDT ULTRASOUND (EBUS) GUIDED SAMPLING, 3+ NODES (WRVU 5.21) from Last 3 Months Results Scan, Peripheral Blood (06/27/2022 11:25 AM EDT)Only the most recent of16 resultswithin the time period is included. [facility] Method Time Signature Plat Estimate Increased [facility] RBC Morphology Normal [facility] Giant Less than 1 /HPF [facility] Platelets [facility] Specimen Anatomical Collection Method Collection Time Receive d Time (Source) Location / / Volume Laterality Blood 06/27/2022 11:25 06/27/2022 AM EDT 11:46 AM EDT Resulting Agency Comment Spec In Lab Raiza Lemon MD HEMATOLOGY ORDERABLES Performing Organization Address City/State/[place] [address] (ABNORMAL) Hemogram (06/27/2022 11:25 AM EDT)Only the most recent of26 results within the time period is included. [facility] Signature WBC 7.5 4.0 - 9.5 [facility] x10(3)/[facility] LABORATORY RBC 3.54 (L) 4.58 - [facility] [place] 5.54 [facility] x10(6)/[facility] LABORATORY Hemoglobin 11.3 (L) 13.7 - [facility] [place] 16.5 g/dL [facility] Hematocrit 32.9 (L) 40.5 [facility] % [facility] MCV 92.9 82.9 [facility] LABORATORY MCH 31.9 27.5 - [facility] [place] 32.1 pg [facility] MCHC 34.3 32.0 [facility] 35.7 g/dL [facility] Platelets 476 (H) 145 - 357 [facility] x10(3)/[facility] LABORATORY RDWSD 49.2 (H) 36.0 - [facility] 45.[address] [facility] LABORATORY RDWCV 14.7 (H) 11.4 - [facility] [place] 13.8 % [facility]ORATORY MPV 9.7 7.6 - 12.9 [facility] LABORATORY nRBC % Auto 0.0 % [facility] nRBC Abs Auto 0.000 0.000 - [facility] [place] 0.000 [facility] x10(3)/[facility] LABORATORY Specimen Anatomical Collection Method Collection Time Receive d Time (Source) Location / / Volume Laterality Blood 06/27/2022 11:25 06/27/2022 AM EDT 11:46 AM EDT Resulting Agency Comment Spec In Lab Raiza Lemon MD HEMATOLOGY ORDERABLES Performing Organization Address City/State/[place] [address] Differential, Automated (06/27/2022 11:25 AM EDT)Only the most recent of19 resultswithin the time period is included. P athologist Signature Neutrophils % 70.9 % [facility] Neutr Abs (ANC) 5.29 1.70 - [facility] 6.10 [facility] x10(3)/[facility] LABORATORY Lymphocytes % 15.4 % [facility] Lymphocytes Abs 1.2 0.9 - 3.2 [facility] x10(3)/[facility] LABORATORY Monocytes % 11.5 % [facility] Monocyte Abs 0.9 0.3 - 0.9 [facility] x10(3)/[facility] LABORATORY Eosinophils % 1.3 % [facility] Eosinophils Abs 0.1 0.0 - 0.4 [facility] x10(3)/[facility] LABORATORY Basophils % 0.5 % [facility] Basophils Abs 0.0 0.0 - 0.1 [facility] x10(3)/[facility] LABORATORY Immature Gran % 0.40 % [facility] Comment: Immature granulocytes(IG's)percentage an d absolute count will include metamyelocytes, myelocytes, and promyelo cytes. Blood smears from CBCs yielding IG's will be scanned manually for concor dance. If this scan disagrees with the automated IG or if promyelocytes are not ed, a manual differential will be performed. Cathy Gran Abs 0.03 0.00 - 0.04 x10(3)/[facility] LABORATORY Specimen Anatomical Collection Method Collection Time Receive d Time (Source) Location / / Volume Laterality Blood 06/27/2022 11:25 06/27/2022 AM EDT 11:46 AM EDT Resulting Agency Comment Spec In Lab Raiza Lemon MD HEMATOLOGY ORDERABLES Performing Organization Address City/[facility]/ZIP Code Phon e Number [address] (ABNORMAL) Phosphorus (06/27/2022 6:11 AM EDT)Only the most recent of23 results within the time period is included. P athologist Signature Phosphorus 4.7 (H) 2.5 - 4.5 [facility] Specimen Anatomical Collection Method Collection Time Receive d Time (Source) Location / / Volume Laterality Blood 06/27/2022 6:11 AM 2 6:32 EDT AM EDT Resulting Agency Comment Spec In Lab Raiza Lemon MD CHEMISTRY ORDERABLES Performing Organization Address City/[facility]/ZIP [facility] Phon e Number [address] Magnesium (06/27/2022 6:11 AM EDT)Only the most recent of22 resultswithin the time period is included. athologist Signature Magnesium 0.86 0.69 - 1.07 [facility] mmol/L [facility] Specimen Anatomical Collection Method Collection Time Receive d Time (Source) Location / / Volume Laterality Blood 06/27/2022 6:11 AM 2 6:32 EDT AM EDT Resulting Agency Comment Spec In Lab Raiza Lemon MD CHEMISTRY ORDERABLES Performing Organization Address City/[facility]/[place] [address] (ABNORMAL) Basic Metabolic Panel (non-fasting) (06/27/2022 6:11 AM EDT)Only the most recent of32 resultswithin the time period is included. athologist Signature Glucose Lvl 102 65 - [address] [facility] Comment: Diabetes: >=200 mg/dL plus symp toms BUN 16 10 - 20 mg/dL [facility] Creatinine 0.54 (L) 0.80 - 1.50 mg/dL [facility] Sodium 135 135 - 145 mmol/L [facility] Potassium 5.0 3.5 - 5.0 mmol/L [facility] Comment: result rechecked-red Please note: ??Patients with WBC >100,00 0 may have falsely elevated Potassium levels. ??For accurate Potassium quantif ication in these patients send serum separator tube (gold top) for subsequent determinations. ??Contact the Clinical Chemistry Laboratory if there are any qu estions. Chloride 103 98 - 107 mmol/L [facility] CO2 22 22 - 31 mmol/L [facility] Anion Gap 10 5 - 15 mmol/L [facility] Calcium 9.1 8.5 - 10.5 mg/dL [facility] Estimated GFR 118 >=60 mL/min/1.73 m?? [facility] Comment: This patient's estimated GFR was calcula castro using the 2020 CKD-EPI equation. The estimated GFR can vary from the wilson ured GFR by up to 30% in the absence of rapidly changing kidney function. Assess ment of the estimated GFR is not appropriate when creatinine concentratio ns are rapidly changing. For clinical situations in which a more precise estim ate of GFR is necessary, consider alternative methods of GFR estimation molina ch as a 24-hour urine creatinine clearance. Assignment of CKD stage 1-5 for patients with an eGFR near the transition point between stages may be based on clinical assessment of muscle mass and symptoms in addition to eGFR. Specimen Anatomical Collection Method Collection Time Receive d Time (Source) Location / / Volume Laterality Blood 06/27/2022 6:11 AM 6:32 EDT AM EDT Resulting Agency Comment Spec In Lab Raiza Lemon MD CHEMISTRY ORDERABLES Performing Organization Address City/State/[place] [address] (ABNORMAL) Phenobarbital level (06/27/2022 6:02 AM EDT)Only the most recent of5 resultswithin the time period is included. Analysis Performed At Patho logist Time Signature Phenobarb Lvl 10.5 (L) 15.0 - [facility] 40.0 mg/L [facility] Comment: Therapeutic Range: ??15-40 mg/L Toxic: ??> 50 mg/L Specimen Anatomical Collection Method Collection Time Receive d Time (Source) Location / / Volume Laterality Blood 06/27/2022 6:02 AM 2 6:32 EDT AM EDT Resulting Agency Comment Spec In Lab Raiza Lemon MD CHEMISTRY ORDERABLES Performing Organization Address City/State/[place] [address] EKG 12 Lead (06/26/2022 2:23 PM EDT)Only the most recent of8 resultswithin the time period is included. [facility] Docker Method Time Signature Ventricular rate 86 BPM MUSE SYSTEM Atrial Rate 86 BPM MUSE SYSTEM P-R Interval 164 ms MUSE SYSTEM QRS Duration 100 ms MUSE SYSTEM Q-T Interval 354 ms MUSE SYSTEM QTC Calculated 423 ms MUSE SYSTEM (Bezet) Calculated P [place] 62 degrees MUSE SYSTEM Calculated R [place] 26 degrees MUSE SYSTEM Calculated T [place] 63 degrees MUSE SYSTEM INTERPRETATION Normal sinus rhythm MUSE SYSTEM Minimal voltage criteria for LVH, may be normal variant ( So kolow-Ash ) Abnormal ECG When compared with ECG of 14-JUN-2022 04:27, T wave amplitude has increased in Lateral leads Confirmed by MD LIAM, KIRTI ([id number]) on 06/27/2022 11:48:54 AM Specimen Anatomical Collection Method Collection Time Receive d Time (Source) Location / / Volume Laterality 06/26/2022 2:23 PM 2 EDT 11:48 AM EDT Thomas Escobedo MD ECG ORDERABLES Performing Organization Address City/State/ZIP Code Phon e Number MUSE SYSTEM SCAN DOC: TELEMETRY STRIPS (06/26/2022 8:22 AM EDT)Only the most recent of27 resultswithin the time period is included. Narrative 06/26/2022 8:22 AM EDT This result has an attachment that is no t available. Ordered by an unspecified provider. Scanning Provider MEDIA MGR SCAN EXT ORDR/RSLT Hepatitis C RNA, quantitative, PCR (06/25/2022 1:17 PM EDT) Component Value Ref Test Analysis Performed At [facility] Compositence Method Time Signature HCV Viral 9,538,041 IU/mL [facility] LABORATORY HCV Viral Result: [id number] IU/mL [facility] Indication for Study: Hepatitis C Infection [facility] Analysis: The Hope Alinity m HCV assay is an i n vitro reverse transcriptase LABORATORY polymerase chain reaction (RT-PCR)for the quanti fication of hepatitis C viral (HCV) RNA in human serum or plasma (EDTA) from HCV-infected indivi duals. Sample: plasma/serum Method: Hope Alinity m HCV Assay Linear Range: 12 IU/mL - 100,000,000IU/mL Note: The Hope Alinity HCV Assay has b een approved by the U.S. Food and Drug Administration. Comment: [VERIFIED DATE]06.26.22 Verified By:Temi Cabrera (Electronic Signature) Specimen Anatomical Collection Method Collection Time Receive d Time (Source) Location / / Volume Laterality Blood 06/25/2022 1:17 PM 2 5:00 EDT PM EDT Resulting Agency Comment Spec In Lab Raiza Lemon MD IMMUNOLOGY ORDERABLES Performing Organization Address City/[facility]/[place] [address] Cortisol (06/25/2022 8:20 AM EDT)Only the most recent of3 resultswithin the time period is included. P athologist Signature Cortisol 16.2 mcg/dL [facility] LABORATORY Comment: Reference ranges: ??AM (6-10am): ??4.8-19.5 mcg/dL ??PM (4-8pm) : ??2.5-11.9 mcg/dL Specimen Anatomical Collection Method Collection Time Receive d Time (Source) Location / / Volume Laterality Blood 06/25/2022 8:20 AM 2 8:25 EDT AM EDT Resulting Agency Comment Spec In Lab Raiza Lemon MD CHEMISTRY ORDERABLES Performing Organization Address City/[facility]/ZIP [facility] [place] [address] Triglyceride (06/23/2022 12:58 AM EDT)Only the most recent of8 resultswithin the time period is included. P athologist Signature Triglycerides 63 mg/dL [facility] LABORAT[facility] Comment: Average Risk/Lower Risk: <150 mg/dL Borderline High Risk: 150-199 mg/dL High Risk: 200-499 mg/dL Very High Risk: >sm=044 mg/dL Specimen Anatomical Collection Method Collection Time Receive d Time (Source) Location / / Volume Laterality Blood 06/23/2022 12:58 06/23/2022 1:07 AM EDT AM EDT Resulting Agency Comment Spec In Lab Jeff Blanton MD CHEMISTRY ORDERABLES Performing Organization Address City/State/ZIP Code Phon e Number [place] [id number] ECHOCARDIOGRAM LMTD W/O CON W LMTD SPEC DOPP, COLOR DOPP (06/22/2022 3:20 PM EDT) P athologist Signature EF 70 HEARTLAB SYSTEM Anatomical Region Laterality Modality Cardiac Other Specimen (Source) Anatomical Collection Method Collection Time Re ceived Time Location / / Volume Laterality 06/22/2022 2:07 PM EDT Narrative 06/22/2022 4:21 PM EDT ? Echocardiogram Report Name: CARLEY ALFORD ?Study Date: 06/22/2022 02:07 PMBP: 115/69 mmHg ? Patient Location: [address] : 1965 ? Height: 177 cm ? Account: [id number] Age: 56 yrs ? Weight: 75 kg Gender: Male ?BSA: 1.9 m2 Ordering Physician: JEFF BLANTON Referring Physician: CLAUDY PAN Performed By: ROBE Harp Reason For Study: Murmur Exam [place] [facility] [place]. Interpretation Summary 1. Limited study for murmur. Complete st udy done on 06/09/22. 2. Increased septal thickness with evide nce of systolic anterior motion of the mitral valve associated with LVOT obstru ction (Peak resting gradient 39 mmHg and modified Valsalva 46 mmHg) and moderate (2+) eccentric mitral regurgitation. 3. Normal biventricular systolic functio n. LVEF is 70% by visual assessment. 4. When compared to the prior study date d 06/09/22, LV systolic function has significantly improved and in this setti ng, new MAYUR with obstruction and mitral regurgitation is noted. Consider hypertr ophic cardiomyopathy. Procedure Limited - 72001. Doppler - 79758. Color Doppler - 95179. Satisfactory quality. There is normal sinus rhythm. Left Ventricle Moderately increased thickness of the ba nia septum with MAYUR. (1.9 cm). The estimated peak gradient across the LV ou tflow tract is 39 mmHg. The estimated peak gradient across the LV outflow tract is 46 mmHg with Valsalva. Left ventricular systolic function is normal. Left ventri cular ejection fraction is estimated visually at 70%. There are no segmental wall motion abnormalities. Right Ventricle Right ventricular systolic function is n ormal. Aortic Valve There is no aortic stenosis. There is tr alexandra aortic regurgitation. Mitral Valve There is no mitral stenosis. There is mo derate mitral regurgitation. The color Doppler jet is eccentric directed. Tricuspid Valve There is no tricuspid stenosis. There is trace tricuspid regurgitation. Venous Inferior vena cava is normal in size. Pa tient is mechanically ventilated. Pericardium/Pleural There is no pericardial effusion. Hemodynamics Pulmonary artery hypertension could not be assessed due to inadequate tricuspid regurgitation jet. ? Volumes ? EDV (MOD-bp) Index: 57.5 I ?WMSI = 1.00 ? % Normal = 1 00 ?Segments ??Size X - Cannot ?2 - ?4 - ?1-2 ? small Interpret ?1 - Normal ?? Hypokinetic 3 - Akinetic Dyskinetic ?? 3-5 ? moderate 5 - ? 6-14 ?large Aneurysmal ?15-16 ?? diffuse Procedure Note Rosalva Villavicencio MD - 06/22/2022Formatt ing of this note might be different from the original. Echocardiogram Report Name: ALFORDCARLEY Study Date: 022 02:07 PMBP: 115/69 mmHg Patient Location: [facility] C[address] A : 1965 Height: 177 cm Account: [id number] Age: 56 yrs Weight: 75 kg Gender: Male BSA: 1.9 m2 Ordering Physician: JEFF BLANTON Referring Physician: CLAUDY PAN Performed By: ROBE Harp Reason For Study: Murmur Exam Location: [facility] [place]. Interpretation Summary 1. Limited study for murmur. Complete st udy done on 06/09/22. 2. Increased septal thickness with evide nce of systolic anterior motion of the mitral valve associated with LVOT obstru ction (Peak resting gradient 39 mmHg and modified Valsalva 46 mmHg) and moderate (2+) eccentric mitral regurgitation. 3. Normal biventricular systolic functio n. LVEF is 70% by visual assessment. 4. When compared to the prior study date d 06/09/22, LV systolic function has significantly improved and in this setti ng, new MAYUR with obstruction and mitral regurgitation is noted. Consider hypertr ophic cardiomyopathy. Procedure Limited - 51061. Doppler - 58937. Color Doppler - 19100. Satisfactory quality. There is normal sinus rhythm. Left Ventricle Moderately increased thickness of the ba nia septum with MAYUR. (1.9 cm). The estimated peak gradient across the LV ou tflow tract is 39 mmHg. The estimated peak gradient across the LV outflow tract is 46 mmHg with Valsalva. Left ventricular systolic function is normal. Left ventri cular ejection fraction is estimated visually at 70%. There are no segmental wall motion abnormalities. Right Ventricle Right ventricular systolic function is n ormal. Aortic Valve There is no aortic stenosis. There is tr alexandra aortic regurgitation. Mitral Valve There is no mitral stenosis. There is mo derate mitral regurgitation. The color Doppler jet is eccentric directed. Tricuspid Valve There is no tricuspid stenosis. There is trace tricuspid regurgitation. Venous Inferior vena cava is normal in size. Pa tient is mechanically ventilated. Pericardium/Pleural There is no pericardial effusion. Hemodynamics Pulmonary artery hypertension could not be assessed due to inadequate tricuspid regurgitation jet. Volumes EDV (MOD-bp) Index: 57.5 I WMSI = 1.00 % Normal = 100 Segments Size X - Cannot 2 - 4 - 1-2 small Interpret 1 - Normal Hypokinetic 3 - Tristan netic Dyskinetic 3-5 moderate 5 - 6-14 large Aneurysmal 15-16 diffuse Jeff Blanton MD ECHO ORDERABLES XR Chest One View (06/21/2022 10:57 PM EDT)Only the most recent of6 results within the time period is included. Anatomical Region Laterality Modality Chest N/A Digital Radiography Specimen (Source) Anatomical Location Collection Method / Collectio n Time Received Time / Laterality Volume Impressions 06/21/2022 11:52 PM EDT Mild pulmonary vascular and interstitial prominence. Thank you for letting us participate in the care of this patient. ??If you are a health care provider and have any questi ons regarding this report, please contact the number below. ??For patients who have questions please contact the health medicare biller that requested your imaging first. ? Electronically signed by: Alexandre Borrero MD, [facility] ([phone]), at 06/21/2022 11:52 PM Narrative 06/21/2022 11:52 PM EDT EXAMINATION: XR CHEST ONE VIEW CLINICAL HISTORY: fever of unclear etiol ogy TECHNIQUE: 1 view of the chest COMPARISON: 06/19/2022 FINDINGS: Mild pulmonary vascular and interstitial prominence. No confluent airspace opacity, pleural effusion, or pneumothor ax definitively identified. Cardiomediastinal contours without signi ficant change appreciated. Endotracheal tube tip 6 cm above the amaya. Tube jad ng the expected course of the esophagus courses off the wqljl-gh-jaxy inferiorly over the abdomen. Procedure Note Alexandre Borrero MD - 06/21/2022 EXAMINATION: XR CHEST ONE VIEW CLINICAL HISTORY: fever of unclear etiol ogy TECHNIQUE: 1 view of the chest COMPARISON: 06/19/2022 FINDINGS: Mild pulmonary vascular and interstitial prominence. No confluent airspace opacity, pleural effusion, or pneumothor ax definitively identified. Cardiomediastinal contours without signi ficant change appreciated. Endotracheal tube tip 6 cm above the amaya. Tube jad ng the expected course of the esophagus courses off the xelcw-hy-ptpy inferiorly over the abdomen. IMPRESSION Mild pulmonary vascular and interstitial prominence. Thank you for letting us participate in the care of this patient. If you are a health care provider and have any questi ons regarding this report, please contact the number below. For patients w ho have questions please contact the health medicare biller that requested your imaging first. Electronically signed by: Alexandre Borrero MD, [facility] ([phone]), at 06/21/2022 11:52 PM Ralph Patterson COOPERER IM DX ORDERABLES (ABNORMAL) _Urinalysis with microscopic (06/21/2022 10:35 PM EDT)Only the most recent of4 resultswithin the time period is included. [facility] Method Time Signature Glucose [facility]A [facility] LAB[facility]ORY Protein UA Negative Negative [facility]/dL [facility] Bilirubin UA Negative Negative [facility]/dL [facility] LAB[facility] Comment: Clinical correlation required for positi ve Urine Bilirubin results as false positive may occur with some drugs and d rug related products. If a false positive is suspected a serum total bili rajan should be considered if clinically indicated. Urobilinogen UA Normal Normal mg/dL [facility] LABORATORY pH UA 7.0 5.0 - 8.0 [facility] Blood UA Negative Negative mg/dL [facility] Ketones UA Negative Negative mg/dL [facility] Nitrite UA Negative Negative [facility] Leukocytes UA Small (A) Negative [facility] LABORATORY Appearance UA Cloudy (A) Clear [facility] Spec [place] UA 1.018 1.005 - 1.030 [facility] LABORAT[facility] Color UA Yellow Yellow [facility] RBC UA 1 0 - 3 /HPF [facility] WBC UA 7 (H) 0 - 3 /HPF [facility] Squam Epith UA 1 <=4 /HPF [facility] Amorph Jayleen UA Moderate (A) None /HPF [facility] LABORAT[facility] Comment: Interpret results with caution, microsco pic results are from suboptimal specimen volume Specimen Anatomical Collection Method Collection Time Receive d Time (Source) Location / / Volume Laterality Urine 06/21/2022 10:35 06/21/2022 PM EDT 10:40 PM EDT Resulting Agency Comment Spec In Lab Ralph Patterson APRN URINE ORDERABLES Performing Organization Address City/[facility]/[place] [address] Blood culture (06/21/2022 10:15 PM EDT)Only the most recent of8 resultswithin the time period is included. [facility] gist Method Time Signature Blood Culture No growth CHRISTEN DIAS at 5 days. [facility] LABORATORY Specimen Anatomical Collection Method Collection Time Receive d Time (Source) Location / / Volume Laterality Blood 06/21/2022 10:15 06/21/2022 PM EDT 10:55 PM EDT Comment: Right Wrist Resulting Agency Comment Spec In Lab Ralph Patterson APRN MICROBIOLOGY - BLOOD ORDERAB LES Performing Organization Address City/State/[place] [address] (ABNORMAL) Lower Respiratory Culture (06/21/2022 10:10 PM EDT)Only the most recent of6 resultswithin the time period is included. Component Value Ref Test Analysis Performed At Patholo gist Range Method Time Signature Lower Many Staphylococcus aureus MAR Y Respiratory Many mixed bacterial morphot ypes suggestive of normal upper respiratory john MARSEILLES Culture (A) [facility] LABORAT[facility] Gram Stain Many Neutrophils seen CHRISTEN Many squamous epithelial cells seen ARUN Many mixed bacterial morphotypes suggestive of n ormal upper respiratory john [facility] LABORATORY Organism Staphylococcus CHRISTEN aureus (A) [facility] LABORATORY Specimen Anatomical Collection Method Collection Time Receive d Time (Source) Location / / Volume Laterality Tracheal 06/21/2022 10:10 06/21/2022 Aspirate PM EDT 11:47 PM EDT Comment: Aspiration from bronchial tree Resulting Agency Comment Spec In Lab Organism Antibiotic Method Susceptibility Staphylococcus aureus Clindamycin VITEK 2 METHOD Resistant Staphylococcus aureus Erythromycin VITEK 2 METHOD Resistant Staphylococcus aureus Gentamicin VITEK 2 METHOD Sensitive Comment: Gentamicin is not a ppropriate for Christian-therapy. Staphylococcus aureus Oxacillin VITEK 2 METHOD Sensitive Comment: Oxacillin (methicillin) susc eptibility is a surrogate for the oral and parenteral cephalosporins, b eta-lactam combination agents (amoxicillin-clavulanate, am picillin-sulbactam and piperacillin-tazobactam) and carbapenem agents. ??It is N OT a surrogate for penicillin, ampicillin or piperacillin susceptibility. Staphylococcus aureus Trimethoprim/Sulfa VITEK 2 METHOD Sensiti ve Staphylococcus aureus Tetracycline VITEK 2 METHOD Sensitive Staphylococcus aureus Vancomycin VITEK 2 METHOD Sensitive Ralph Patterson APRN MICROBIOLOGY - GENERAL ORDER AILEEN Performing Organization Address City/State/[place] [address] (ABNORMAL) TSH (06/21/2022 2:15 AM EDT)Only the most recent of3 resultswithin the time period is included. P athologist Signature TSH 4.32 (H) 0.27 - 4.20 [facility] mcIU/mL [facility] LABORATORY Comment: Reference Interval (mcIU/mL): Females: ??First Trimester: 0.23-3.88 ??Second Trimester: 0.22-3.90 ??Third Trimester: 0.44-4.66 Specimen Anatomical Collection Method Collection Time Receive d Time (Source) Location / / Volume Laterality Blood Venous Draw / 06/21/2022 2:15 AM 06/21/20 22 2:31 Unknown EDT AM EDT Resulting Agency Comment Spec In Lab Kofi HUSSEIN CHEMISTRY ORDERABLES Performing Organization Address City/[facility]/ZIP Code Phon e Number [address] T4, free (06/21/2022 2:15 AM EDT)Only the most recent of3 resultswithin the time period is included. athologist Signature Free T4 1.09 0.93 - 1.70 [facility] ng/dL [facility] LABORATORY Comment: Reference Interval (ng/dL): Females: ??First Trimester: 0.97-1.68 ??Second Trimester: 0.77-1.51 ??Third Trimester: 0.77-1.49 Specimen Anatomical Collection Method Collection Time Receive d Time (Source) Location / / Volume Laterality Blood Venous Draw / 06/21/2022 2:15 AM 06/21/20 22 2:31 Unknown EDT AM EDT Resulting Agency Comment Spec In Lab Kofi HUSSEIN CHEMISTRY ORDERABLES Performing Organization Address City/[facility]/ZIP Code Phon e Number [address] Ammonia (06/19/2022 12:00 AM EDT)Only the most recent of10 resultswithin the time period is included. athologist Signature Ammonia 34 16 - 60 [facility] mcmol/L [facility] LABORATORY Specimen (Source) Anatomical Collection Method Collection Time Re ceived Time Location / / Volume Laterality Blood 06/19/2022 06/19/2022 12:0 8 AM EDT Resulting Agency Comment Spec In Lab Harini Conn APRN CHEMISTRY ORDERABLES Performing Organization Address City/[facility]/ZIP Code Phon e Number [address] Aldosterone (06/16/2022 4:34 PM EDT) athologist Signature Aldosterone 5.6 <=21 ng/dL [facility] Comment: ADDITIONAL INFORMATIO N Reference range for patients 11 years an d older is based on upright A.M. collection from subjects wi thout sodium restrictions. This test was developed and its performa nce characteristics determined by [facility] in a manner co nsistent with CLIA requirements. This test has not been mary ared or approved by the U.S. Food and Drug Administration. Test Performed by: [facility] [address] [place] [id number] Machine Feeder: Harry Angel M.D. Ph. D.; IA# [id number] Specimen Anatomical Collection Method Collection Time Receive d Time (Source) Location / / Volume Laterality Blood 06/16/2022 4:34 PM 9:01 EDT AM EDT Resulting Agency Comment Spec In Lab Jeff Blanton MD CHEMISTRY ORDERABLES Performing Organization Address City/State/[place] [address] Renin Activity (06/16/2022 4:34 PM EDT) athologist Signature Renin Activity 5.2 ng/ml/hr [facility] LABOR[facility] Comment: REFERENCE VALUE------ (Peripheral vein specimen) Na-deplete, upright: ??Mean: 5.9 ??Range: 2.9-10.8 Na-replete, upright: ??Mean: 1.0 ??Range: < or =0.6-3.0 ADDITIONAL INFORMATIO N Testing performed by [employer] hy-Tandem Mass Spectrometry (LC-MS/MS). This test was developed and its performa nce characteristics determined by [facility] in a manner co nsistent with CLIA requirements. This test has not been mary ared or approved by the U.S. Food and Drug Administration. Test Performed by: [facility] [address] [place], [place] [address] Machine Feeder: Harry Angel M.D. Ph. D.; CLIA# [id number] Specimen Anatomical Collection Method Collection Time Receive d Time (Source) Location / / Volume Laterality Blood 06/16/2022 4:34 PM 9:44 EDT AM EDT Resulting Agency Comment Spec In Lab Jeff Blanton MD CHEMISTRY ORDERABLES Performing Organization Address City/[facility]/ZIP Code Phon e Number [place] [id number] (ABNORMAL) Electrolytes panel (06/16/2022 11:47 AM EDT) athologist Signature Sodium 140 135 - 145 [facility] mmol/L [facility] LABORATORY Potassium 5.5 (H) 3.5 - 5.0 [facility] mmol/L [facility] LABORATORY Comment: Please note: ??Patients with WBC >100,00 0 may have falsely elevated Potassium levels. ??For accurate Potassium quantif ication in these patients send serum separator tube (gold top) for subsequent determinations. ??Contact the Clinical Chemistry Laboratory if there are any qu estions. Chloride 98 98 - 107 mmol/L [facility]OR[facility] CO2 37 (H) 22 - 31 mmol/L [facility] Anion Gap 5 5 - 15 mmol/L [facility] LABORATORY Specimen Anatomical Collection Method Collection Time Receive d Time (Source) Location / / Volume Laterality Blood 06/16/2022 11:47 06/16/2022 AM EDT 11:50 AM EDT Resulting Agency Comment Spec In Lab Harini Conn APRN CHEMISTRY ORDERABLES Performing Organization Address City/[facility]/ZIP [facility] [place] [address] Specific [place], Urine (06/16/2022 9:16 AM EDT) athologist Signature Spec [place] 1.006 1.005 - [facility] UA 1.030 [facility] LABORATORY Specimen Anatomical Collection Method Collection Time Receive d Time (Source) Location / / Volume Laterality Urine 06/16/2022 9:16 AM 2 9:43 EDT AM EDT Resulting Agency Comment Spec In Lab Harini Conn APRN URINE ORDERABLES Performing Organization Address City/[facility]/ZIP Code Phon e Number [address] Sodium, urine, random (06/16/2022 9:16 AM EDT) athologist Signature U Sodium 34 mmol/L [facility] LABOR[facility]ORY Specimen Anatomical Collection Method Collection Time Receive d Time (Source) Location / / Volume Laterality Urine 06/16/2022 9:16 AM 2 9:43 EDT AM EDT Resulting Agency Comment Spec In Lab Harini Conn APRN URINE ORDERABLES Performing Organization Address City/[facility]/ZIP Code Phon e Number [address] Potassium, urine, random (06/16/2022 9:16 AM EDT) athologist Signature U Potassium 7 mmol/L [facility] LABOR[facility]ORY Specimen Anatomical Collection Method Collection Time Receive d Time (Source) Location / / Volume Laterality Urine 06/16/2022 9:16 AM 2 9:43 EDT AM EDT Resulting Agency Comment Spec In Lab Harini Conn APRN URINE ORDERABLES Performing Organization Address City/[facility]/ZIP [facility] Phon e Number [address] Osmolality, urine, random (06/16/2022 9:16 AM EDT) athologist Signature U Osmolality 178 50 - 1,200 [facility] mOsm/kg [facility] LABORATORY Specimen Anatomical Collection Method Collection Time Receive d Time (Source) Location / / Volume Laterality Urine 06/16/2022 9:16 AM 2 9:43 EDT AM EDT Resulting Agency Comment Spec In Lab Harini Conn APRN URINE ORDERABLES Performing Organization Address City/State/ZIP Code Phon e Number [address] Chloride, urine, random (06/16/2022 9:16 AM EDT) P athologist Signature U Chloride 27 mmol/L [facility] LABOR[facility]ORY Specimen Anatomical Collection Method Collection Time Receive d Time (Source) Location / / Volume Laterality Urine 06/16/2022 9:16 AM 2 9:43 EDT AM EDT Resulting Agency Comment Spec In Lab Harini Conn APRN URINE ORDERABLES Performing Organization Address City/[facility]/ZIP Code Phon e Number [address] Urine Hold (06/15/2022 7:38 PM EDT)Only the most recent of2 resultswithin the time period is included. P athologist Signature Urine Hold Sample in [facility] LABORATORY Specimen Anatomical Collection Method Collection Time Receive d Time (Source) Location / / Volume Laterality Urine 06/15/2022 7:38 PM 2 8:10 EDT PM EDT Jeff Blanton MD URINE ORDERABLES Performing Organization Address City/[facility]/[place] [address] MRI Thoracic Spine wwo Contrast (06/15/2022 6:38 PM EDT)Only the most recent of2 resultswithin the time period is included. Anatomical Region Laterality Modality T-spine Magnetic Resonance Specimen (Source) Anatomical Location Collection Method / Collectio n Time Received Time / Laterality Volume Impressions 06/15/2022 7:25 PM EDT Unchanged thoracic spine involvement of the left apical lung mass, with known foraminal involvement. No interval cord signal alteration or new epidural extension. Thank you for letting us participate in the care of this patient. ??If you are a health care provider and have any questi ons regarding this report, please contact the number below. ??For patients who have questions please contact the health medicare biller that requested your imaging first. ? Electronically signed by: Odell pickard MD, [facility] ([phone]), at 06/15/2022 7:25 PM Narrative 06/15/2022 7:25 PM EDT EXAMINATION: MRI THORACIC SPINE WWO CONTRAST CLINICAL HISTORY: Metastatic disease rico luation 56 yo male with recent dx of NSCLC with known extension to Cervical and Thoracic spine/epidural space, now with minimal m otor exam in BUE, evaluate for acute changes TECHNIQUE: MRI of the thoracic spine was performed before and after the intravenous administration of 17cc Dotarem. MRI thor acic spine 05/04/2022 COMPARISON: MRI thoracic spine 05/04/2022 FINDINGS: Normal alignment. Left apical lung mass with similar invas ion of the T1 and T2 vertebral body marrow and involvement of the left C7-T1 through T3-4 foramina. Similar abnormal marrow signal and enhancement involving the posterior aspect of the T4 and T5 vertebral body. Similar encasement of the left vertebral artery. Thoracic cord signal is normal. No inter richard increase in epidural extension of neoplasm. Small bilateral pleural collections. Procedure Note Odell Ellsworth MD - 06/15/2022Formatt ing of this note might be different from the original. EXAMINATION: MRI THORACIC SPINE WWO CONT RAST CLINICAL HISTORY: Metastatic disease rico luation 56 yo male with recent dx of NSCLC with known extension to Cervical and Thoracic spine/epidural space, now with minimal m otor exam in BUE, evaluate for acute changes TECHNIQUE: MRI of the thoracic spine was performed before and after the intravenous administration of 17cc Dotarem. MRI thor acic spine 05/04/2022 COMPARISON: MRI thoracic spine 05/04/2022 FINDINGS: Normal alignment. Left apical lung mass with similar invas ion of the T1 and T2 vertebral body marrow and involvement of the left C7-T1 through T3-4 foramina. Similar abnormal marrow signal and enhancement involving the posterior aspect of the T4 and T5 vertebral body. Similar encasement of the left vertebral artery. Thoracic cord signal is normal. No inter richard increase in epidural extension of neoplasm. Small bilateral pleural collections. IMPRESSION Unchanged thoracic spine involvement of the left apical lung mass, with known foraminal involvement. No interval cord signal alteration or new epidural extension. Thank you for letting us participate in the care of this patient. If you are a health care provider and have any questi ons regarding this report, please contact the number below. For patients w ho have questions please contact the health medicare biller that requested your imaging first. Electronically signed by: Odell pickard MD, [facility] ([phone]), at 06/15/2022 7:25 PM Jeff Blanton MD IMG MRI ORDERABLES MRI Cervical Spine wwo Contrast (06/15/2022 6:38 PM EDT)Only the most recent of2 resultswithin the time period is included. Anatomical Region Laterality Modality C-spine Magnetic Resonance Specimen (Source) Anatomical Location Collection Method / Collectio n Time Received Time / Laterality Volume Impressions 06/15/2022 7:18 PM EDT No evidence of metastatic disease within the cervical spine. Marrow invasion at T1 and T2, see separa te thoracic spine report. Left apical lung mass with extension int o the left C7-T1 and T1-2 foramina. Thank you for letting us participate in the care of this patient. ??If you are a health care provider and have any questi ons regarding this report, please contact the number below. ??For patients who have questions please contact the health medicare biller that requested your imaging first. ? Electronically signed by: Odell pickard MD, [facility] ([phone]), at 06/15/2022 7:18 PM Narrative 06/15/2022 7:18 PM EDT EXAMINATION: MRI CERVICAL SPINE WWO CONTRAST CLINICAL HISTORY: Metastatic disease rico luation Other Pertinent Information TECHNIQUE: MRI of the cervical spine was performed before and after the intravenous administration of 17cc Dotarem. COMPARISON: None FINDINGS: Mild anterolisthesis of C3 with respect to C4 on a degenerative basis. Endplate marrow edema and fatty change at C6-7 is related to disc degeneration. Marrow replacing lesions within the T1 and T2 v ertebral bodies will be described in the thoracic spine report. Cervical cord sig nal is normal. Left apical lung mass with abnormal soft tissue infiltration and enhancement involving the left C7-T1 and left T1-2 f oramina. C2-3: No significant stenosis. C3-4: Central disc extrusion mildly narr owing the central spinal canal. Uncovertebral and facet arthropathy narr owing the bilateral foramina. C4-5: Uncovertebral and facet arthropath y narrowing the bilateral foramina. C5-6: Uncovertebral and facet arthropath y narrowing the foramina. C6-7: Uncovertebral arthropathy narrowin g the foramina. Procedure Note Odell Ellsworth MD - 06/15/2022Formatt ing of this note might be different from the original. EXAMINATION: MRI CERVICAL SPINE WWO CONT RAST CLINICAL HISTORY: Metastatic disease rico luation Other Pertinent Information TECHNIQUE: MRI of the cervical spine was performed before and after the intravenous administration of 17cc Dotarem. COMPARISON: None FINDINGS: Mild anterolisthesis of C3 with respect to C4 on a degenerative basis. Endplate marrow edema and fatty change at C6-7 is related to disc degeneration. Marrow replacing lesions within the T1 and T2 v ertebral bodies will be described in the thoracic spine report. Cervical cord sig nal is normal. Left apical lung mass with abnormal soft tissue infiltration and enhancement involving the left C7-T1 and left T1-2 f oramina. C2-3: No significant stenosis. C3-4: Central disc extrusion mildly narr owing the central spinal canal. Uncovertebral and facet arthropathy narr owing the bilateral foramina. C4-5: Uncovertebral and facet arthropath y narrowing the bilateral foramina. C5-6: Uncovertebral and facet arthropath y narrowing the foramina. C6-7: Uncovertebral arthropathy narrowin g the foramina. IMPRESSION No evidence of metastatic disease within the cervical spine. Marrow invasion at T1 and T2, see separa te thoracic spine report. Left apical lung mass with extension int o the left C7-T1 and T1-2 foramina. Thank you for letting us participate in the care of this patient. If you are a health care provider and have any questi ons regarding this report, please contact the number below. For patients w ho have questions please contact the health medicare biller that requested your imaging first. Electronically signed by: Odell pickard MD, [facility] ([phone]), at 06/15/2022 7:18 PM Jeff Blanton MD IMG MRI ORDERABLES MRI Brain wwo Contrast (Generic) (06/15/2022 6:38 PM EDT)Only the most recent of 2 resultswithin the time period is included. Anatomical Region Laterality Modality Head Magnetic Resonance Specimen (Source) Anatomical Location Collection Method / Collectio n Time Received Time / Laterality Volume Impressions 06/15/2022 7:08 PM EDT No evidence of intracranial metastatic disease. Right temporalis lesion is nonspecific b ut could represent a metastatic site. This does not appear to be visible on CT . Thank you for letting us participate in the care of this patient. ??If you are a health care provider and have any questi ons regarding this report, please contact the number below. ??For patients who have questions please contact the health medicare biller that requested your imaging first. ? 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 COMPARISON: MRI 06/13/[address] 06/09/2022 FINDINGS: No acute infarction, mass, mass effect. Unchanged site of restricted diffusion within the right temporalis muscle with associated enhancement. No significant interval parenchymal sign al alteration. The ventricles and extra axial spaces ar e normal. Major intracranial flow voids are normal. Calvarium is unremarkable. Paranasal sin us mucosal thickening.. Procedure Note Odell Ellsworth MD - 06/15/2022Formatt ing of this note might be different from the original. 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 COMPARISON: MRI 06/13/[address] 06/09/2022 FINDINGS: No acute infarction, mass, mass effect. Unchanged site of restricted diffusion within the right temporalis muscle with associated enhancement. No significant interval parenchymal sign al alteration. The ventricles and extra axial spaces ar e normal. Major intracranial flow voids are normal. Calvarium is unremarkable. Paranasal sin us mucosal thickening.. IMPRESSION No evidence of intracranial metastatic d isease. Right temporalis lesion is nonspecific b ut could represent a metastatic site. This does not appear to be visible on CT . Thank you for letting us participate in the care of this patient. If you are a health care provider and have any questi ons regarding this report, please contact the number below. For patients w ho have questions please contact the health medicare biller that requested your imaging first. Electronically signed by: Odell pickard MD, [facility] ([phone]), at 06/15/2022 7:08 PM Jeff Blanton MD IMG MRI ORDERABLES HIV Screen, 4th Generation ([facility]/CGP/APD/NLH) (06/15/2022 12:10 PM EDT) Analysis Performed At Patho logist Time Signature HIV-1/2 Ab and Negative Negative [facility] LABORATORY Comment: This 4th Generation HIV test screens for the presence of the HIV-1 p24 antigen as well as antibodies reactive against H IV-1 and HIV-2. A negative screen does not rule out an acute HIV infection. If acute HIV infection is suspected, testing should be repeated in 2 - 3 week s or HIV nucleic acid testing performed. HIV Comment Low Risk of HIV Infection [facility] LABORATORY Specimen Anatomical Collection Method Collection Time Receive d Time (Source) Location / / Volume Laterality Blood 06/15/2022 12:10 06/15/2022 PM EDT 12:25 PM EDT Resulting Agency Comment Spec In Lab Jeff Blanton MD IMMUNOLOGY ORDERABLES Performing Organization Address City/State/[place] [address] (ABNORMAL) BLOOD GAS 2 ARTERIAL (06/15/2022 8:43 AM EDT)Only the most recent of 10 resultswithin the time period is included. P athologist Signature pH Art 7.34 (L) 7.35 - [facility] 7.45 [facility] LABORATORY pCO2 Art 68 35 - 45 [facility] (Critical) mmHg [facility] LABORATORY Comment: Noted by director of instrumental music. pO2 Art 71 (L) 85 - 104 mmHg [facility] LABORAT[facility] HCO3 Art 36.1 (H) 20.0 - 26.0 mmol/L [facility] OCK [facility] LABORAT[facility] BE Art 10.3 (H) -3.0 - 3.0 mmol/L [facility] Hgb Blood Gas 12.0 (L) 13.7 - 16.5 g/dL [facility]AT[facility] O2HB Art 93.1 (L) 94.0 - 97.0 % [facility]ORAT[facility] COHB Art 0.5 % [facility] Comment: Nonsmokers: 0.5-1.5% COHB Smokers: Variable, but usually less than 10% Toxic: 20-30% COHB Lethal: Greater than 60% COHB METHB Art 0.0 <=1.5 % [facility] Na Whole Blood 137 135 - 145 mmol/L [facility] K Whole Blood 4.8 3.5 - 5.0 mmol/L [facility] Comment: Please note: Patients with WBC >100,000 may have falsely elevated Potassium levels. Contact the Clinical Chemistry L aboratory if there are any questions. ICa Whole Blood 1.24 1.15 - 1.33 mmol/L [facility] LABORATORY Comment: Note: ??Total bilirubin higher than 20 m g/dL may lead to falsely low ionized calcium. CL Whole Blood 99 98 - 107 mmol/L [facility]ORATORY Gluc Whole Bld 141 65 - 199 mg/dL [facility] LABORATORY Comment: Diabetes: >=200 mg/dL plus symp toms. Lactate WB 0.7 0.5 - 2.2 mmol/L [facility] FIO2 Art 40 % [facility] PF Ratio Art 178 [facility] LABORATORY Specimen Anatomical Collection Method Collection Time Receive d Time (Source) Location / / Volume Laterality Blood 06/15/2022 8:43 AM 2 8:43 EDT AM EDT Jeff Blanton MD CHEMISTRY ORDERABLES Performing Organization Address City/State/[place] [address] Potassium (06/15/2022 8:42 AM EDT)Only the most recent of3 resultswithin the time period is included. P athologist Signature Potassium 4.9 3.5 - 5.0 [facility] mmol/L [facility] LABORATORY Comment: Please note: ??Patients with WBC >100,00 0 may have falsely elevated Potassium levels. ??For accurate Potassium quantif ication in these patients send serum separator tube (gold top) for subsequent determinations. ??Contact the Clinical Chemistry Laboratory if there are any qu estions. Specimen Anatomical Collection Method Collection Time Receive d Time (Source) Location / / Volume Laterality Blood 06/15/2022 8:42 AM 2 8:48 EDT AM EDT Resulting Agency Comment Spec In Lab Caroline Rogers Jas ELI CHEMISTRY ORDERABLES Performing Organization Address City/[facility]/ZIP Code Phon e Number [address] CK (06/15/2022 2:10 AM EDT)Only the most recent of4 resultswithin the time period is included. P athologist Signature CK, Total 28 0 - 200 [facility] LABORATORY Specimen Anatomical Collection Method Collection Time Receive d Time (Source) Location / / Volume Laterality Blood Venous Draw / 06/15/2022 2:10 AM 06/15/20 22 2:22 Unknown EDT AM EDT Resulting Agency Comment Spec In Lab Kofi HUSSEIN CHEMISTRY ORDERABLES Performing Organization Address City/[facility]/ZIP Code Phon e Number [address] Valproic Acid Level, Total (06/15/2022 2:10 AM EDT)Only the most recent of2 resultswithin the time period is included. P athologist Signature Valproic Lvl 21 mg/L [facility] LABORATORY Comment: Therapeutic Range: Anticonvulsant Therapy: ??50-100 mg/L Manic Episodes Associated with Bipolar D isorder: ??50-125 mg/L Specimen Anatomical Collection Method Collection Time Receive d Time (Source) Location / / Volume Laterality Blood 06/15/2022 2:10 AM 2 2:20 EDT AM EDT Resulting Agency Comment Spec In Lab Jeff Blanton MD CHEMISTRY ORDERABLES Performing Organization Address City/[facility]/ZIP Code Phon e Number [address] Aspergillus Ag, BAL (06/14/2022 4:00 PM EDT) Analysis Performed At Patho logist Time Signature Aspergillus Ag, <0.500 <0.5 Index [facility] LABORATORY Comment: ADDITIONAL INFORMATIO N This is a qualitative test and the resul castro index value is not indicative of disease severity. ??Se rial testing is recommended for patients at high risk fo r invasive aspergillosis. This assay was performed using the FDA-c leared [employer] [place] Aspergillus Galactomannan EIA. Test Performed by: [facility] [address] [place], [place] [address] Machine Feeder: Harry Angel M.D. Ph. D.; CLIA# [id number] Specimen (Source) Anatomical Collection Method Collection Time Re ceived Time Location / / Volume Laterality Bronchial 06/14/2022 4:00 06/15/2022 9 :10 Alveolar Lavage PM EDT AM EDT Resulting Agency Comment Spec In Lab Jeff Blanton MD BODY FLUIDS AND STOOLS ORDER AILEEN Performing Organization Address City/[facility]/[place] [address] Cell Count, Bronchoalveolar Lavage (06/14/2022 4:00 PM EDT) [facility]acy[facility] Method Time Signature Color BAL Colorless [facility] LAB[facility]ATORY Appearance BAL Slightly Hazy [facility] NUC BAL Count 871 [facility] LABORATORY Segs BAL 89 % [facility] LABORATORY Comment: Counts may be inaccurate due to presence of debris Results may be inaccurate due to presenc e of many degenerated cells Lymph BAL 6 % [facility] Macrophage BAL 5 % [facility] Total Cells BAL 200 Cells [facility]ATORY Specimen (Source) Anatomical Collection Method Collection Time Re ceived Time Location / / Volume Laterality Bronchial 06/14/2022 4:00 06/14/2022 4 :51 Alveolar Lavage PM EDT PM EDT Resulting Agency Comment Spec In Lab Jeff Blanton MD BODY FLUIDS AND STOOLS ORDER AILEEN Performing Organization Address City/[facility]/[place] [address] Miscellaneous Lab request (06/14/2022 4:00 PM EDT) [facility] Docker Method Time Signature Misc Lab Request CHRISTEN DIAS Result received in [facility]. [facility] LABORATORY Comment: Collection date/time has been modified t o: 16:00:00. ??Previous collection date/time: 16:51:00 . Corrected on 06/14/22 16:53:03 EDT by Heladio Miller Please contact the lab or refer to previously-reported data . Specimen Anatomical Collection Method Collection Time Receive d Time (Source) Location / / Volume Laterality Other 06/14/2022 4:00 PM 4:51 EDT PM EDT Resulting Agency Comment Spec In Lab Jeff Blanton MD HEMATOLOGY ORDERABLES Performing Organization Address City/State/ZIP Code Phon e Number [place] [address] [facility] (06/14/2022 4:00 PM EDT) [facility] Method Time Signature [facility] Test ?Result ? Flag ??Unit ??RefValue [facility] Histoplasma/Blastomyces PCR HO SPITAL ??Histo/Blasto Source ? BAL LABORATORY ??Histo/Blasto Result ? Negative ? Not Applicable ?A Negative result from BAL fluid does not rule out the ?presence of Histoplasma capsulatum because the sensiti vity ? from this source is suboptimal. ? ADDITIONAL INFORMATION ------ ?This test was developed and its performance characteri stics ?determined by [facility] in a manner consistent with CLIA ?requirements. This test has not been cleared or approv ed by ?the U.S. Food and Drug Administration. ?Test Performed by: ?[facility] ?[address] [place] [address] ?Machine Feeder: Harry Angel M.D. Ph.D.; CLIA# [id number] Specimen Anatomical Collection Method Collection Time Receive d Time (Source) Location / / Volume Laterality Other Other / Unknown 06/14/2022 4:00 PM 2021 3:31 EDT PM EDT Resulting Agency Comment Spec In Lab Kofi HUSSEIN CHEMISTRY ORDERABLES Performing Organization Address City/[facility]/[place] [address] Calcofluor White Stain (06/14/2022 1:57 PM EDT) [facility] Method Time Signature Calcofluor Calcofluor CHRISTEN Stain White MARSEILLES Preparation: [facility] LABORATORY Specimen (Source) Anatomical Collection Method Collection Time Re ceived Time Location / / Volume Laterality Bronchial 06/14/2022 1:57 06/14/2022 5 :00 Alveolar Lavage PM EDT PM EDT Resulting Agency Comment Spec In Lab Kofi HUSSEIN MICROBIOLOGY - GENERAL ORDER AILEEN Performing Organization Address City/[facility]/[place] [address] Bronchoscopy (06/14/2022 1:52 PM EDT) Narrative Jeff Blanton MD - 06/14/2022 1:52 PM EDT Bambi Tobias PA ? 06/14/2022 ??4:32 PM ICU Bronchoscopy Procedure Note Bronchoscopist: Geraldine Becker Attending / Engineering Technical Specialist: Tyson Blanton Location: [address] [place], [place] [id number] Indication: pneumonia, atelectasis ??and hypoxemia Procedure Diagnosis: PNA, hypoxemia Anesthesia: Propofol, Versed, fentanyl, precedex drips Endotracheal Medications: Lidocaine 100m ls of 1% Procedure: ??A time out was performed co nfirming the patient? s identity and the procedure to be perform ed. Consent was obtained, Ines reached over the phone. A fib eroptic bronchoscope was inserted via the endotracheal tube and t ube placement was confirmed at 2-5 cm above the main buck a. The airway was inspected in its entirety to the segment al level and anatomy and mucosa were normal with the following ex ceptions: erythematous mucosa. There were ??secretions present. Secretions were thin, minimal, clear. Only the R bronchial heron e inspected given known L sided anatomic abnormalities. Secretions were removed by suction and were sent for cx, cell count, fungal cx, AFB, aspergillus ab, blasto. Interventions: ??A Bronchoalveolar lavag e was performed in the RLL. ??20 cc were instilled x 3 with 10c c, 5cc, and 4cc return respectively, which was clear. After per forming the above interventions the bronchoscope was remov ed. Sample: The bronchoalveolar lavage were sent for bacterial stain and culture, fungal stain and culture, A FB stain and culture, cell count, aspergillus ab, blasto. Complications: None. Pt tolerated the pr ocedure well JOVITA Becker NCCU Team Pager #[phone] Jeff Blanton MD PROCEDURE/MINOR SURGICAL ORD ERABLES (ABNORMAL) Uric acid (06/14/2022 5:50 AM EDT)Only the most recent of2 results within the time period is included. P athologist Signature Uric Acid 2.1 (L) 3.5 - 8.5 [facility] mg/dL [facility] LABORATORY Specimen Anatomical Collection Method Collection Time Receive d Time (Source) Location / / Volume Laterality Blood Venous Draw / 06/14/2022 5:50 AM 06/14/20 6:10 Unknown EDT AM EDT Resulting Agency Comment Spec In Lab Kofi HUSSEIN CHEMISTRY ORDERABLES Performing Organization Address City/State/[place] [address] Lipase (06/14/2022 5:50 AM EDT) athologist Signature Lipase 49 0 - 60 CHRISTEN ARUN unit/L [facility] LABORATORY Specimen Anatomical Collection Method Collection Time Receive d Time (Source) Location / / Volume Laterality Blood Venous Draw / 06/14/2022 5:50 AM 06/14/20 6:10 Unknown EDT AM EDT Resulting Agency Comment Spec In Lab Kofi HUSSEIN CHEMISTRY ORDERABLES Performing Organization Address City/[facility]/ZIP Code Phon e Number [address] (ABNORMAL) Hepatic Function Panel (06/14/2022 5:50 AM EDT) athologist Signature Total Protein 5.6 (L) 6.1 - 8.0 [facility] [facility] g/dL [facility] Albumin 2.6 (L) 3.2 - 5.2 [facility] g/dL [facility] AST 33 0 - 39 [facility] unit/L [facility] ALT 45 0 - 55 [facility] unit/L [facility] Alk Phos 87 40 - 130 [facility] unit/L [facility] Total 0.2 0.2 - 1.3 [facility] Bilirubin mg/dL [facility] Bili, Direct 0.1 0.0 - 0.3 [facility] mg/dL [facility] Specimen Anatomical Collection Method Collection Time Receive d Time (Source) Location / / Volume Laterality Blood Venous Draw / 06/14/2022 5:50 AM 06/14/20 6:10 Unknown EDT AM EDT Resulting Agency Comment Spec In Lab Kofi HUSSEIN CHEMISTRY ORDERABLES Performing Organization Address City/[facility]/ZIP Code Phon e Number [address] MRI Brain wo Contrast (06/13/2022 1:05 PM EDT) Anatomical Region Laterality Modality Head Magnetic Resonance Specimen (Source) Anatomical Location Collection Method / Collectio n Time Received Time / Laterality Volume Impressions 06/13/2022 2:17 PM EDT 1. ??Punctate focus of cortical diffusion restriction in the posterior left occipital lobe. Differential considerati ons include bland or septic embolus. Metastatic focus considered less likely. 2. ??More conspicuous focus of T2 prolon gation in the right temporalis muscle possibly reflecting venous engorgement o r thrombus. 3. ??Paranasal sinus disease possibly se condary to intubation. Thank you for letting us participate in the care of this patient. ??If you are a health care provider and have any questi ons regarding this report, please contact the number below. ??For patients who have questions please contact the health medicare biller that requested your imaging first. ? Electronically signed by: MAXIMILIANO Lei [facility] ([phone]), at 06/13/2022 2:17 PM Narrative 06/13/2022 2:17 PM EDT EXAMINATION: MRI BRAIN WO CONTRAST CLINICAL HISTORY: Mental status change, unknown cause TECHNIQUE: Routine MRI of the brain was performed without contrast COMPARISON: CT head 06/09/2022, MRI brain 05/05/2022 FINDINGS: 2-3 mm focus of diffusion sign al on the DWI sequence on axial image 42, series 4. No evidence for acute terr itorial ischemic change or hemorrhage. 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 Ventricles are wi thin normal limits of caliber. Major intracranial vascular flow voids are pre served. Moderate paranasal sinus mucosal thickening and central fluid secretions. Partial fluid opacification of mastoid air cells possibly due to intubation. More prominent T2 hyperintense signal in the region of the left temporalis muscle posterior to the frontal bone whi ch may reflect venous engorgement or thrombus. Procedure Note Libby Watkins MD - 06/13/2022Form atting of this note might be different from the original. EXAMINATION: MRI BRAIN WO CONTRAST CLINICAL HISTORY: Mental status change, unknown cause TECHNIQUE: Routine MRI of the brain was performed without contrast COMPARISON: CT head 06/09/2022, MRI brain 05/05/2022 FINDINGS: 2-3 mm focus of diffusion sign al on the DWI sequence on axial image 42, series 4. No evidence for acute terr itorial ischemic change or hemorrhage. 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 Ventricles are wi thin normal limits of caliber. Major intracranial vascular flow voids are pre served. Moderate paranasal sinus mucosal thickening and central fluid secretions. Partial fluid opacification of mastoid air cells possibly due to intubation. More prominent T2 hyperintense signal in the region of the left temporalis muscle posterior to the frontal bone whi ch may reflect venous engorgement or thrombus. IMPRESSION 1. Punctate focus of cortical diffusion restriction in the posterior left occipital lobe. Differential considerati ons include bland or septic embolus. Metastatic focus considered less likely. 2. More conspicuous focus of T2 prolonga tion in the right temporalis muscle possibly reflecting venous engorgement o r thrombus. 3. Paranasal sinus disease possibly seco ndary to intubation. Thank you for letting us participate in the care of this patient. If you are a health care provider and have any questi ons regarding this report, please contact the number below. For patients w ho have questions please contact the health medicare biller that requested your imaging first. Electronically signed by: Libby Watkins [facility] ([phone]), at 06/13/2022 2:17 PM Melanie Parra MD IMG MRI ORDERABLES (ABNORMAL) HSV 1 and 2 PCR (06/13/2022 9:43 AM EDT)Only the most recent of2 resultswithin the time period is included. [facility] Method Time Signature HSV-1 PCR Detected (A) Not Detected [facility] Comment: got verified before entering full result mistakenly Corrected from Not Detected on 06/13/22 23:42:08 EDT by Hansa Fraser. HSV-2 PCR Not Detected Not Detected [facility] HSV Source Vesicle [facility] Comment: The only FDA approved specimen types for this assay are CSF and genital lesions. Specimen Anatomical Collection Method Collection Time Receive d Time (Source) Location / / Volume Laterality Vesicle 06/13/2022 9:43 AM 2 EDT 10:27 AM EDT Comment: Specimen Type:->Vesicle Resulting Agency Comment Spec In Lab Melanie Parra MD MICROBIOLOGY - GENERAL ORDER AILEEN Performing Organization Address City/State/[place] [address] (ABNORMAL) Urinalysis without microscopic (06/12/2022 5:34 PM EDT) [facility] Method Time Signature Glucose UA Negative [facility] Protein UA Trace (A) Negative [facility] mg/dL [facility] Bilirubin UA Negative Negative [facility] mg/dL [facility] Comment: Clinical correlation required for positi ve Urine Bilirubin results as false positive may occur with some drugs and d rug related products. If a false positive is suspected a serum total bili rajan should be considered if clinically indicated. Urobilinogen UA 2.0 (A) Normal mg/dL [facility] pH UA 7.5 5.0 - 8.0 [facility] Blood UA Negative Negative mg/dL [facility] Ketones UA Negative Negative mg/dL [facility] Nitrite UA Negative Negative [facility] Leukocytes UA Trace (A) Negative [facility]ORATORY Appearance UA Clear Clear [facility] Spec [place] UA 1.018 1.005 - 1.030 [facility] Color UA Yellow Yellow [facility] Specimen Anatomical Collection Method Collection Time Receive d Time (Source) Location / / Volume Laterality Urine 06/12/2022 5:34 PM 2 5:47 EDT PM EDT Resulting Agency Comment Spec In Lab Melanie Parra MD URINE ORDERABLES Performing Organization Address City/[facility]/[place] [address] SCAN DOC: LAB (06/12/2022 12:00 AM EDT)Only the most recent of6 resultswithin the time period is included. Narrative 06/12/2022 12:00 AM EDT This result has an attachment that is no t available. Ordered by an unspecified provider. Scanning Provider MEDIA MGR SCAN EXT ORDR/RSLT INTUBATION - ANES ONLY (06/11/2022 9:14 PM EDT) Narrative Jam Garcia MD - 06/11/2022 9:14 PM EDT Ren Skelton MD ? 06/11/2022 ??9:35 PM Emergent Intubation Date/Time: 06/11/2022 9:14 PM Urgency: emergent Reason for Intubation: ?? Procedure Diagnosis: ??respiratory d istress General Information and Staff Patient location during procedure: ?? ot her (add comment) (neuro crit care) Anesthesiologist: Jam Garcia MD Resident/MARINE EQUIPMENT DESIGN ENGINEER: Ren Skelton MD Other anesthesia staff: Kush [...] Garcia MD ANES INPUT W LINKED CHGS XR Abdomen 1 view (Generic) (06/11/2022 7:59 PM EDT)Only the most recent of2 resultswithin the time period is included. Anatomical Region Laterality Modality Abdomen N/A Digital Radiography Specimen (Source) Anatomical Location Collection Method / Collectio n Time Received Time / Laterality Volume Narrative 06/11/2022 8:32 PM EDT EXAMINATION: XR ABDOMEN 1 VIEW (GENERIC) CLINICAL HISTORY: extubation-confirm ngt placement TECHNIQUE: AP supine COMPARISON: 06/09/2022 FINDINGS: Gastric tube is within the stomach. Norm al bowel gas pattern. Patchy opacities throughout both lungs as seen on the pat ient's recent chest x-ray Thank you for letting us participate in the care of this patient. ??If you are a health care provider and have any questi ons regarding this report, please contact the number below. ??For patients who have questions please contact the health medicare biller that requested your imaging first. ? Electronically signed by: Jaky Wilder, [facility] ([phone]), at 06/11/2022 8:32 PM Procedure Note Cristy Langford MD - 06/11/2022Formattin g of this note might be different from the original. EXAMINATION: XR ABDOMEN 1 VIEW (GENERIC) CLINICAL HISTORY: extubation-confirm ngt placement TECHNIQUE: AP supine COMPARISON: 06/09/2022 FINDINGS: Gastric tube is within the stomach. Norm al bowel gas pattern. Patchy opacities throughout both lungs as seen on the pat ient's recent chest x-ray Thank you for letting us participate in the care of this patient. If you are a health care provider and have any questi ons regarding this report, please contact the number below. For patients w ho have questions please contact the health medicare biller that requested your imaging first. Electronically signed by: Jaky Wilder, [facility] ([phone]), at 06/11/2022 8:32 PM Jeff Cox COOPERER IMG DX ORDERABLES Duplex Study for DVT, Bilat legs (06/11/2022 10:57 AM EDT) Component Value Ref Test Analysis Performed At [facility] gist Range Method Time Signature VB Text Department: Vascular Surgery Lab VASCUBASE Report Patient: [id number] (CARLEY ALFORD) CPT: [id number] Referring Physician: MELANIE PARRA ?? Phone: Indications: fever work up, ? DVT Findings: RIGHT: Patent common femoral vein and popliteal vein with sp ontaneous, respirophasic Doppler wavefo cayetano that respond normally to augmentation maneuvers. The common femoral vein, sap henofemoral junction, femoral vein through the thigh and popliteal vein are fully compressible. Patent posterior tibial and peroneal veins with no evidence of thrombus. LEFT: Patent common femoral vein and popliteal vein with spo ntaneous, respirophasic Doppler wavefo cayetano that respond normally to augmentation maneuvers. The common femoral vein, sap henofemoral junction, femoral vein through the thigh and popliteal vein are fully compressible. Patent posterior tibial and peroneal veins with no evidence of thrombus. Interpretation: RIGHT: ??No evidence of lower extremity deep venous thrombos is. LEFT: ??No evidence of lower extremity deep venous thrombosi s. Comparison: ?? No previous study in our vascular lab database for comparison. Electronically Signed by: MELISSA VALLES on 2022-06-11 03: 14:52 PM VB Text End of Report VASCUBASE Report Specimen (Source) Anatomical Collection Method Collection Time Re ceived Time Location / / Volume Laterality 06/11/2022 10:57 AM EDT Melanie Parra MD VASCULAR ORDERABLES Performing Organization Address City/State/ZIP Code Phon e Number VASCUBASE POCT Glucose (06/11/2022 7:08 AM EDT)Only the most recent of16 resultswithin the time period is included. athologist Signature POC Glucose 105 65 - 199 [facility] mg/dL [facility] Comment: Supplemental ranges: <140 mg/dL before meals <180 mg/dL all other times of the day Specimen Anatomical Collection Method Collection Time Receive d Time (Source) Location / / Volume Laterality Blood 06/11/2022 7:08 AM 7:08 EDT AM EDT Melanie Parra MD POINT OF CARE TEST ORDERABLE S Performing Organization Address City/State/ZIP Code Phon e Number [place] [id number] MRSA PCR (06/10/2022 7:28 PM EDT) [facility] gist Method Time Signature MRSA Result Negative Negative [facility] MRSA Interp Negative for methicillin-resistant Staphylococcus aureus (MRSA) [facility] This test was performed using the GeneXpert?? Dx System an d the Xpert MRSA MEMORIAL Assay. The MRSA target DNA was not detec castro. The sample processing control and HOSPITAL probe check were valid. The performance of this test was determined by the [facility] Molecular Pathology Laboratory. It has been surinder red by the U.S. Food and Drug Administration for clinical use. Comment: [VERIFIED DATE]06.11.22 Verified By:Liza Katz (Electronic Signature) Specimen (Source) Anatomical Collection Method Collection Time Re ceived Time Location / / Volume Laterality Nasopharyngeal Swab 06/10/2022 7:28 06/10 PM EDT 9:58 PM EDT Resulting Agency Comment Spec In Lab Shasta Louis APRN MICROBIOLOGY - GENERAL ORDER AILEEN Performing Organization Address City/[facility]/[place] [address] EEG Continuous Monitoring Inpatient (06/10/2022 2:00 PM EDT) Narrative Wing Metzger MD - 06/10/2022 2:00 P M EDT Wing Metzger MD ? 06/11/2022 ??6:27 PM [facility] Department of Neurology Inpatient Continuous Video EEG Report Name of the Patient: ??Carley Alford Date of : ?1965 Date of Service: ?06/11/22 Resident/Fellow: ??Josh Steven MD Attending: ??Wing Metzger MD Initial date and time cEEG monitoring st arted: 06/09/2022 ??10:41 Daily report EEG start time: ??06/10/2022 ??05:00 Daily report EEG end time: ?? 06/10/2022 ??13:43 Total recording time: 8 hours and 43 min utes Total Initial and Final EEG Time (Head Plus Tail): ??8 hours and 43 minutes Indication for cvEEG: Encephalopathy/Alt ered mental status BRIEF HISTORY Carley Alford is a 56 y.o. male with PMH of COPD, HTN, polysubstance abuse disorder, bipolar di sorder and recently diagnosed NSCLC (04/2022) who was found a cutely obtunded with initial concern for acute stroke s/p tPA , connected to EEG to assist in workup of altered mental statu s. Prior EEG(s): None Pertinent medications: Gabapentin Propofol gtt Valproate METHODS A 21 channel digitized continuous electr oencephalogram with video was performed by the [facility] Clinical Neurophysiology Laboratory. Following explanation of the procedure, the 10/20 international system of electrode placem ent was used to determine electrode placement and disposable MRI c onditional electrodes were applied using the paste/collodion m ethod of application. Bipolar and referential electrode montag es were recorded. In addition to EEG, the patient was monitor ed for EKG. Video was recorded during the session. ?? ELECTROENCEPHALOGRAPHER'S REPORT Background: The background was Continuous, composed of normal voltage (10 to 60 ??V) and predominantly diffuse delta frequency activity with admixed beta and alpha frequency activit y with poor organization that lacks anterior to posterior gradien t and posterior dominant rhythm. ??There were brief periods of de creased sedation where there was noted reactivity and anterior- to-posterior gradient. Focal Asymmetries: There were no persistent focal asymmetri es. Sleep: Sleep was characterized by decreased jenn genic artifact and increased slowing. Interictal Activity: There were no epileptiform discharges or abnormal movement patterns. Patient Events or Seizures: No patient events or electrographic seiz ures were recorded. Provocative Maneuvers: Hyperventilation and photic stimulation were not performed. EKG: Single-lead EKG was regular. Technical Limitations: None INTERPRETATION: This 8-hour and 43-minute recording of c ontinuous video EEG was abnormal due to the presence of: ?? 1) Diffuse poorly organized delta freque ncy slowing CLINICAL CORRELATION: The overall pattern of this EEG suggests a moderate global cerebral dysfunction of nonspecific etio logy. ??No seizures or epileptiform discharges noted. Josh Steven MD 06/11/2022 Neurology Attending I have personally reviewed the EEG, and I agree with the details as written. ?? The above report was form ulated in discussion with me at the time of EEG reading, and I agr ee with it as documented. Wing Metzger MD [place] [address] Pager: [phone], #[phone] Email: [email or web address] Louis APRN NEUROLOGY ORDERABLES Encephalopathy AutoAb Eval, CSF (06/10/2022 12:50 PM EDT) Component Value Ref Test Analysis Performed At Patholo gist Range Method Time Signature Encephalopathy SEE COMMENTS CHRISTEN Interp, CSF [facility] Comment: No informative autoantibodies were detec castro in this evaluation. However, a negative result d oes not exclude autoimmune encephalopathy, idiopathic or paraneoplastic. Sensitivity and specificity of antibody testing are enhanced by testing both serum and CSF. Test Performed by: [facility] [place] [address] Machine Feeder: Harry Angel M.D. Ph. D.; CLIA# [id number] NMDA-R Ab, CSF Negative Negative [facility] Comment: ADDITIONAL INFORMATIO N This test was developed and its performa nce characteristics determined by [facility] in a manner co nsistent with CLIA requirements. This test has not been mary ared or approved by the U.S. Food and Drug Administration. Test Performed by: [facility] [place] [id number] Machine Feeder: Harry Angel M.D. Ph. D.; CLIA# [id number] Ab, CSF 0.00 <=0.02 nmol/L [facility] Comment: ADDITIONAL INFORMATIO N This test was developed and its performa nce characteristics determined by [facility] in a manner co nsistent with CLIA requirements. This test has not been mary ared or approved by the U.S. Food and Drug Administration. Test Performed by: [facility] [place] [address] Machine Feeder: Harry Angel M.D. Ph. D.; CLIA# [id number] ROSALVA-B-R Ab, CSF Negative Negative [facility] Comment: ADDITIONAL INFORMATIO N This test was developed and its performa nce characteristics determined by [facility] in a manner co nsistent with CLIA requirements. This test has not been mary ared or approved by the U.S. Food and Drug Administration. Test Performed by: [facility] [place] [address] Machine Feeder: Harry Angel M.D. Ph. D.; CLIA# [id number] AMPA-R Ab, CSF Negative Negative [facility] Comment: ADDITIONAL INFORMATIO N This test was developed and its performa nce characteristics determined by [facility] in a manner co nsistent with CLIA requirements. This test has not been mray ared or approved by the U.S. Food and Drug Administration. Test Performed by: [facility] [place] [address] Machine Feeder: Harry Angel M.D. Ph. D.; CLIA# [id number] MELANIE-1, CSF Negative <1:2 titer [facility] Comment: Test Performed by: [facility] [place] [id number] Machine Feeder: Harry Angel M.D. Ph. D.; CLIA# [id number] MELANIE-2, CSF Negative <1:2 titer [facility] Comment: ADDITIONAL INFORMATIO N This test was developed and its performa nce characteristics determined by [facility] in a manner co nsistent with CLIA requirements. This test has not been mary ared or approved by the U.S. Food and Drug Administration. Test Performed by: [facility] [place] [address] Machine Feeder: Harry Angel M.D. Ph. D.; CLIA# [id number] MELANIE-3, CSF Negative <1:2 titer [facility] Comment: ADDITIONAL INFORMATIO N This test was developed and its performa nce characteristics determined by [facility] in a manner co nsistent with CLIA requirements. This test has not been mary ared or approved by the U.S. Food and Drug Administration. Test Performed by: [facility] [place] [address] Machine Feeder: Harry Angel M.D. Ph. D.; CLIA# [id number] AGNA-1, CSF Negative <1:2 titer [facility] Comment: ADDITIONAL INFORMATIO N This test was developed and its performa nce characteristics determined by [facility] in a manner co nsistent with CLIA requirements. This test has not been mary ared or approved by the U.S. Food and Drug Administration. Test Performed by: [facility] [place] [address] Machine Feeder: Harry Angel M.D. Ph. D.; CLIA# [id number] SOFTWARE DESIGN MANAGER-1, CSF Negative <1:2 titer [facility] Comment: ADDITIONAL INFORMATIO N This test was developed and its performa nce characteristics determined by [facility] in a manner co nsistent with CLIA requirements. This test has not been mary ared or approved by the U.S. Food and Drug Administration. Test Performed by: [facility] [place] [address] Machine Feeder: Harry Angel M.D. Ph. D.; CLIA# [id number] SOFTWARE DESIGN MANAGER-2, CSF Negative <1:2 titer [facility] Comment: ADDITIONAL INFORMATIO N This test was developed and its performa nce characteristics determined by [facility] in a manner co nsistent with CLIA requirements. This test has not been mary ared or approved by the U.S. Food and Drug Administration. Test Performed by: [facility] [place] [address] Machine Feeder: Harry Angel M.D. Ph. D.; CLIA# [id number] SOFTWARE DESIGN MANAGER-Type Tr, CSF Negative <1:[address] [facility] Comment: ADDITIONAL INFORMATIO N This test was developed and its performa nce characteristics determined by [facility] in a manner co nsistent with CLIA requirements. This test has not been mary ared or approved by the U.S. Food and Drug Administration. Test Performed by: [facility] [place] [address] Machine Feeder: Harry Angel M.D. Ph. D.; CLIA# [id number] Amphiphysin Ab, CSF Negative <1:2 titer [facility] Comment: ADDITIONAL INFORMATIO N This test was developed and its performa nce characteristics determined by [facility] in a manner co nsistent with CLIA requirements. This test has not been mary ared or approved by the U.S. Food and Drug Administration. Test Performed by: [facility] [place] [address] Machine Feeder: Harry Angel M.D. Ph. D.; CLIA# [id number] CRMP-5-IgG, CSF Negative <1:2 titer [facility] Comment: ADDITIONAL INFORMATIO N This test was developed and its performa nce characteristics determined by [facility] in a manner co nsistent with CLIA requirements. This test has not been mary ared or approved by the U.S. Food and Drug Administration. Test Performed by: [facility] [email or web address] [address] Machine Feeder: Harry Angel M.D. Ph. D.; CLIA# [id number] CASPR2-IgG, CSF Negative Negative [facility] Comment: ADDITIONAL INFORMATIO N This test was developed and its performa nce characteristics determined by [facility] in a manner co nsistent with CLIA requirements. This test has not been mary ared or approved by the U.S. Food and Drug Administration. Test Performed by: [facility] [place] [address] Machine Feeder: Harry Angel M.D. Ph. D.; CLIA# [id number] LGI1-IgG, CSF Negative Negative [facility] Comment: ADDITIONAL INFORMATIO N This test was developed and its performa nce characteristics determined by [facility] in a manner co nsistent with CLIA requirements. This test has not been mary ared or approved by the U.S. Food and Drug Administration. Test Performed by: [facility] [place] [address] Machine Feeder: Harry Angel M.D. Ph. D.; CLIA# [id number] DPPX Ab, CSF Negative Negative [facility] Comment: ADDITIONAL INFORMATIO N This test was developed and its performa nce characteristics determined by [facility] in a manner co nsistent with CLIA requirements. This test has not been mary ared or approved by the U.S. Food and Drug Administration. Test Performed by: [facility] [email or web address] [address] Machine Feeder: Harry Angel M.D. Ph. D.; CLIA# [id number] Ab, CSF Negative Negative [facility] Comment: ADDITIONAL INFORMATIO N This test was developed and its performa nce characteristics determined by [facility] in a manner co nsistent with CLIA requirements. This test has not been mary ared or approved by the U.S. Food and Drug Administration. Test Performed by: [facility] [place] [address] Machine Feeder: Harry Angel M.D. Ph. D.; CLIA# [id number] GFAP, CSF Negative Negative [facility] Comment: ADDITIONAL INFORMATIO N This test was developed and its performa nce characteristics determined by [facility] in a manner co nsistent with CLIA requirements. This test has not been mary ared or approved by the U.S. Food and Drug Administration. Test Performed by: [facility] [place] [address] Machine Feeder: Harry Angel M.D. Ph. D.; CLIA# [id number] IFA, CSF Negative Negative [facility] Comment: ADDITIONAL INFORMATIO N This test was developed and its performa nce characteristics determined by [facility] in a manner co nsistent with CLIA requirements. This test has not been mary ared or approved by the U.S. Food and Drug Administration. Test Performed by: [facility] [email or web address] [address] Machine Feeder: Harry Angel M.D. Ph. D.; CLIA# [id number] NIF IFA, CSF Negative Negative [facility] Comment: ADDITIONAL INFORMATIO N This test was developed and its performa nce characteristics determined by [facility] in a manner co nsistent with CLIA requirements. This test has not been mary ared or approved by the U.S. Food and Drug Administration. Test Performed by: [facility] [place] [address] Machine Feeder: Harry Angel M.D. Ph. D.; CLIA# [id number] Specimen (Source) Anatomical Collection Method Collection Time Re ceived Time Location / / Volume Laterality Cerebrospinal Fluid Other / Unknown 06/10/2022 12:50 0 06/15/2022 PM EDT 3:31 PM EDT Resulting Agency Comment Spec In Lab Kofi HUSSEIN BODY FLUIDS AND STOOLS ORDER AILEEN Performing Organization Address City/[facility]/ZIP Code Phon e Number [address] CSF Cell Count (06/10/2022 12:50 PM EDT) P athologist Signature Tube # Ct CSF 4 [facility] Nucleated CSF 2 0 - 5 /mcl [facility] Comment: If Nucleated CSF CT result equals Zero, no smear is made and no Differential is performed. If Nucleated CSF CT result is 1-5 / mcL, a smear is made and scanned but no results are reported unless abnormalitie s are noted. If Nucleated CSF CT result is 6 /mcL or greater, a smear is made and manual differential is performed and reported. Nucleated CSF CT results on a CSF fluid must be correlated with clinical condition. RBC CSF CT 0 /mcl [facility] Specimen (Source) Anatomical Collection Method Collection Time Re ceived Time Location / / Volume Laterality Cerebrospinal Fluid 06/10/2022 12:50 0805/2022 PM EDT 1:08 PM EDT Resulting Agency Comment Spec In Lab Shasta Louis APRN BODY FLUIDS AND STOOLS ORDER AILEEN Performing Organization Address [facility]/ZIP Code Phon e Number [address] CSF DESC 4 (06/10/2022 12:50 PM EDT) Patholo gist Method Time Signature Tube Num CSF 4 [facility] #4 [facility] Color CSF #4 Colorless Colorless [facility] Appear CSF #4 Clear Clear [facility] Tot Vol CSF #4 6.0 mL [facility] Specimen (Source) Anatomical Collection Method Collection Time Re ceived Time Location / / Volume Laterality Cerebrospinal Fluid 06/10/2022 12:50 0805/2022 PM EDT 1:08 PM EDT Resulting Agency Comment Spec In Lab Shasta Louis COOPERER BODY FLUIDS AND STOOLS ORDER AILEEN Performing Organization Address City/[facility]/ZIP Code Phon e Number [address] CSF DESC 3 (06/10/2022 12:50 PM EDT) Patholo gist Method Time Signature Tube Num CSF 3 [facility] Color CSF #3 Colorless Colorless [facility] Appear CSF #3 Clear Clear [facility] Tot Vol CSF #3 3.0 mL [facility] Specimen (Source) Anatomical Collection Method Collection Time Re ceived Time Location / / Volume Laterality Cerebrospinal Fluid 06/10/2022 12:50 08/1 05/2022 PM EDT 1:08 PM EDT Resulting Agency Comment Spec In Lab Shasta Lewist COOPERER BODY FLUIDS AND STOOLS ORDER AILEEN Performing Organization Address City/State/ZIP Code Phon e Number [address] CSF DESC 2 (06/10/2022 12:50 PM EDT) Patholo gist Method Time Signature Tube Num CSF 2 [facility] Color CSF #2 Colorless Colorless [facility] Appear CSF #2 Clear Clear [facility] Tot Vol CSF #2 2.7 mL [facility] Specimen (Source) Anatomical Collection Method Collection Time Re ceived Time Location / / Volume Laterality Cerebrospinal Fluid 06/10/2022 12:50 08/05/2022 PM EDT 1:08 PM EDT Resulting Agency Comment Spec In Lab Shasta Lewist COOPERER BODY FLUIDS AND STOOLS ORDER AILEEN Performing Organization Address City/State/[place] [address] CSF DESC 1 (06/10/2022 12:50 PM EDT) Patholo gist Method Time Signature Tube Num CSF 1 [facility] Color CSF #1 Colorless Colorless [facility] Appear CSF #1 Clear Clear [facility] Tot Vol CSF #1 3.0 mL [facility] Specimen (Source) Anatomical Collection Method Collection Time Re ceived Time Location / / Volume Laterality Cerebrospinal Fluid 06/10/2022 12:50 0805/2022 PM EDT 1:08 PM EDT Resulting Agency Comment Spec In Lab Shasta Louis COOPERER BODY FLUIDS AND STOOLS ORDER AILEEN Performing Organization Address City/[facility]/ZIP Code Phon e Number [address] Protein Level CSF (06/10/2022 12:50 PM EDT) athologist Signature T Protein, CSF 22 15 - 45 [facility] mg/dL [facility] Xanthochromia Neg [facility] Specimen (Source) Anatomical Collection Method Collection Time Re ceived Time Location / / Volume Laterality Cerebrospinal Fluid 06/10/2022 12:50 05/24 PM EDT 1:08 PM EDT Resulting Agency Comment Spec In Lab Shasta Louis COOPERER BODY FLUIDS AND STOOLS ORDER AILEEN Performing Organization Address [facility]/ZIP Code Phon e Number [address] Glucose Level CSF (06/10/2022 12:50 PM EDT) athologist Signature Glucose, CSF 98 mg/dL [facility] Comment: CSF at equilibrium equals appro ximately 60-80% of plasma glucose. Specimen (Source) Anatomical Collection Method Collection Time Re ceived Time Location / / Volume Laterality Cerebrospinal Fluid 06/10/2022 12:50 05/24 PM EDT 1:08 PM EDT Resulting Agency Comment Spec In Lab Shasta Louis COOPERER BODY FLUIDS AND STOOLS ORDER AILEEN Performing Organization Address City/[facility]/ZIP Code Phon e Number [address] Vancomycin, trough (06/10/2022 12:39 PM EDT) athologist Signature Vanc Trough 8.7 mg/L [facility] Comment: Therapeutic range for complicated infect ions such as bacteremia, endocarditis, osteomyelitis, meningitis, and hospital- acquired pneumonia caused by S. aureus: 15-20 mg/L Therapeutic range for other indications: 10-15 mg/L Toxic: >20 mg/L Reference: Vancomycin Therapeutic Monitoring: Isela ortega and Recommendations from the ASHP, IDSA and SIDP Task Force. ??Am J Health- Syst Pharm. 2009; 66:82-98 Specimen Anatomical Collection Method Collection Time Receive d Time (Source) Location / / Volume Laterality Blood 06/10/2022 12:39 06/10/2022 1:08 PM EDT PM EDT Resulting Agency Comment Spec In Lab Melanie Parra MD CHEMISTRY ORDERABLES Performing Organization Address City/State/ZIP Code Phon e Number [place] [id number] Lumbar Puncture (06/10/2022 12:17 PM EDT) Narrative Melanie Parra MD - 06/10/2022 12:17 PM EDT Carlton Becker PA ? 06/10/2022 12:21 PM Lumbar Puncture Procedure Note Primary Indications for Procedure: Rule out meningitis. Procedure Diagnosis: AMS Location of Procedure: Critical Care. Risks and Benefits: The risks and benefi ts of this procedure were reviewed and informed consent was obtain ed. ?? Time Out: Prior to the start of the proc edure, the patient's identity, intended procedure, site/side, correct patient positioning and presence of the site mar k was confirmed as applicable. The medical history and ely t were reviewed to rule out potential contraindications to the p lanned procedure. Patient Position for Procedure: Left lat eral decubitus Procedure Technique: Sterile draping was applied. Skin was prepped with ??povidone-iodine. 4 ml of 1% Lidocaine was injected for local anesthesia. Procedure Details: The insertion site fo r this procedure was L4-L5. There was 1 attempt. ??The needle used was a 3.5 inch 20 gauge Quincke. ? Findings: CSF was obtained. The opening pressure obtained was 25 mmH2O. The volume obtained was 15 ml. CS F was: clear. Specimens were sent for the following te st(s): Cell Count Malignant Cell Screen Glucose Protein Microbiology: Bacterial Culture, Aerobic & Gram Stain, Fungus Culture and Jazmine [place] Prep, Cryptococcu s Antigen, Enterovirus by PCR and Herpes Simplex Virus by PCR Post Procedure: Patient placed flat and advised to lie flat for 45-60 minutes. No immediate complication s were observed.. Procedure Comments: Uncomplicated lumbar puncture. Patient remained stable throughout. Closing pres sure was 16 mmH2O. Patient tolerated well. Melanie Parra MD PROCEDURE/MINOR SURGICAL ORD ERABLES Body Fluid HOLD Cerebrospinal Fluid (06/10/2022 12:14 PM EDT) Patholo gist Method Time Signature Hold BF Type Sample in [facility] lab. [facility] Specimen Anatomical Collection Method Collection Time Receive d Time (Source) Location / / Volume Laterality Body Fld 06/10/2022 12:14 06/10/2022 1:13 PM EDT PM EDT Melanie Parra MD BODY FLUIDS AND STOOLS ORDER AILEEN Performing Organization Address [facility] [place] [address] (ABNORMAL) Calcium Ionized Whole Blood, GEN (06/10/2022 1:40 AM EDT)Only the most recent of2 resultswithin the time period is included. P athologist Signature pH Gen 7.29 7.32 - [facility] (Critical) 7.42 [facility] Comment: Called by: KARLA, Read back by: Asiya Fuentes, Date/Time:06/10/22 01:51. ICa Whole Blood 1.12 (L) 1.15 - 1.33 mmol/L [facility] Comment: Note: ??Total bilirubin higher than 20 m g/dL may lead to falsely low ionized calcium. Specimen Anatomical Collection Method Collection Time Receive d Time (Source) Location / / Volume Laterality Blood 06/10/2022 1:40 AM 2 1:45 EDT AM EDT Resulting Agency Comment Spec In Lab Aurea Cano COOPERER CHEMISTRY ORDERABLES Performing Organization Address [facility] Phon e Number [address] Lactate, whole blood, send to lab ([facility]) (06/10/2022 1:40 AM EDT)Only the most recent of5 resultswithin the time period is included. athologist Signature Lactate WB 2.0 0.5 - 2.2 [facility] mmol/L [facility] Specimen Anatomical Collection Method Collection Time Receive d Time (Source) Location / / Volume Laterality Blood 06/10/2022 1:40 AM 1:45 EDT AM EDT Resulting Agency Comment Spec In Lab Aurea Cano APRN CHEMISTRY ORDERABLES Performing Organization Address City/[facility]/ZIP Code Phon e Number [address] (ABNORMAL) TSH [place] (06/10/2022 12:20 AM EDT) athologist Signature TSH 0.23 (L) 0.27 - 4.20 [facility] mcIU/mL [facility] Comment: Reference Interval (mcIU/mL): Females: ??First Trimester: 0.23-3.88 ??Second Trimester: 0.22-3.90 ??Third Trimester: 0.44-4.66 Specimen Anatomical Collection Method Collection Time Receive d Time (Source) Location / / Volume Laterality Blood 06/10/2022 12:20 06/10/2022 AM EDT 12:31 AM EDT Resulting Agency Comment Spec In Lab Melanie Parra MD CHEMISTRY ORDERABLES Performing Organization Address City/[facility]/ZIP Code Phon e Number [address] Homocysteine Total, Plasma (06/10/2022 12:20 AM EDT) athologist Signature Homocyst Tot 6 <=15 [facility] mcmol/L [facility] Specimen Anatomical Collection Method Collection Time Receive d Time (Source) Location / / Volume Laterality Blood Venous Draw / 06/10/2022 12:20 06/10/2022 Unknown AM EDT 12:35 AM EDT Resulting Agency Comment Spec In Lab Aurea Cano APRN CHEMISTRY ORDERABLES Performing Organization Address City/[facility]/ZIP Code Phon e Number [address] Folate, serum (06/10/2022 12:20 AM EDT) P athologist Signature Folate Lvl 10.6 4.8 - 24.2 [facility] ng[facility]mL [facility] Specimen Anatomical Collection Method Collection Time Receive d Time (Source) Location / / Volume Laterality Blood Venous Draw / 06/10/2022 12:20 06/10/2022 Unknown AM EDT 12:35 AM EDT Resulting Agency Comment Spec In Lab Aurea Cano APRN CHEMISTRY ORDERABLES Performing Organization Address [facility] Phon e Number [address] Salicylate (06/10/2022 12:20 AM EDT)Only the most recent of2 resultswithin the time period is included. athologist Signature Salicylate Lvl <3 mg/L [facility] Comment: Therapeutic Range: ??< 200 mg/L Arthritic Therapy: ??150-300 mg/L Toxic: ?> 350 mg/L ??Concentrations > 500 mg/L may be an i ndication for alkalinization of urine. Concentrations > 800 mg/L are often an i ndication for hemodialysis. Specimen Anatomical Collection Method Collection Time Receive d Time (Source) Location / / Volume Laterality Blood Venous Draw / 06/10/2022 12:20 06/10/2022 Unknown AM EDT 12:35 AM EDT Resulting Agency Comment Spec In Lab Aurea Cano APRN CHEMISTRY ORDERABLES Performing Organization Address [facility] Phon e Number [address] LUMBAR PUNCTURE (06/09/2022 11:24 PM EDT) Narrative Aurea Cano APRN - 06/09/2022 11 :24 PM EDT Aurea Cano APRN ? 06/09/2022 11:46 PM Lumbar Puncture Procedure Note Primary Indications for Procedure: Rule out meningitis. Procedure Diagnosis: acute encephalopath y, unknown etiology Location of Procedure: Critical Care. Risks and Benefits: The risks and benefi ts of this procedure were reviewed and informed consent was obtain ed. ?? Time Out: Prior to the start of the proc edure, the patient's identity, intended procedure, site/side, correct patient positioning and presence of the site mar k was confirmed as applicable. The medical history and ely t were reviewed to rule out potential contraindications to the p lanned procedure. Patient Position for Procedure: Left lat eral decubitus Procedure Technique: Sterile draping was applied. Skin was prepped with ??povidone-iodine. Procedure Details: The insertion site fo r this procedure was L3-4 and L4-5. There were 3 attempts. ??The n eedle used was a 3.5 inch 20 gauge Quincke. ? Findings: Unable to obtain CSF. Specimens were sent for the following te st(s): none Post Procedure: No immediate complicatio ns were observed.. Procedure Comments: ??Pt was placed in l eft lateral decubitus with assistance from Lisa RN, Dana RN and Fabiana RT. ?? Attempted at L4-5 x 2 and L3-4 x 1 unsuc cessfully. ??At both spaces, quite a bit of resistance likely 2/2 calcification despite repositioning, redirecting needl e and attempting at a different level. Aurea Cano, COOPERER Neurocritical Care, [id number] Melanie Parra MD PROCEDURE/MINOR SURGICAL ORD ERABLES VZV PCR, CSF (06/09/2022 10:29 PM EDT) Component Value Ref Test Analysis Performed At [facility] Range Method Time Signature Varicella-Zo CHRISTEN ster PCR Test ?Result ? Flag ??Unit ??RefValue [facility] Varicella-Zoster Virus PCR HOS PITAL ??Specimen Source ? CSF LABORATORY ??Varicella-Zoster Virus PC R ?Negative ? Negative ? ADDITIONAL INFORMATION ------ ?This test was developed and its performance characteri stics ?determined by [facility] in a manner consistent with CLIA ?requirements. This test has not been cleared or approv ed by ?the U.S. Food and Drug Administration. ?Test Performed by: ?[facility] ?[address] [id number] ?Machine Feeder: Harry Angel M.D. Ph.D.; CLIA# [id number] Specimen (Source) Anatomical Collection Method Collection Time Re ceived Time Location / / Volume Laterality Cerebrospinal Fluid 06/09/2022 10:29 05/24 PM EDT 3:06 PM EDT Resulting Agency Comment Spec In Lab Melanie Parra MD MICROBIOLOGY - GENERAL ORDER AILEEN Performing Organization Address City/[facility]/[place] [address] Enterovirus PCR, CSF (06/09/2022 10:29 PM EDT) [facility] gist Method Time Signature Enterovirus Negative Negative [facility] LABORATORY Specimen (Source) Anatomical Collection Method Collection Time Re ceived Time Location / / Volume Laterality Cerebrospinal Fluid 06/09/2022 10:29 05/24 PM EDT 1:21 PM EDT Resulting Agency Comment Spec In Lab Melanie Parra MD MICROBIOLOGY - GENERAL ORDER AILEEN Performing Organization Address [facility]/[place] [address] Cryptococcal Antigen CSF ([facility]/CGP/APD/[facility]) (06/09/2022 10:29 PM EDT) [facility] gist Method Time Signature CSF Cryptococcal Negative Negative [facility] LABORATORY Specimen (Source) Anatomical Collection Method Collection Time Re ceived Time Location / / Volume Laterality Cerebrospinal Fluid 06/09/2022 10:29 08/05/2022 PM EDT 1:59 PM EDT Resulting Agency Comment Spec In Lab Melanie Parra MD MICROBIOLOGY - GENERAL ORDER AILEEN Performing Organization Address City/[facility]/[place] [address] CSF Culture (06/09/2022 10:29 PM EDT) Component Value Ref Test Analysis Performed At [facility] Range Method Time Signature Central No growth [facility] LABORATORY Gram Stain Cytocentrifuge Gram Stain performed [facility] No Neutrophils seen. [place] No microorganisms seen. [facility] Specimen (Source) Anatomical Collection Method Collection Time Re ceived Time Location / / Volume Laterality Cerebrospinal Fluid 06/09/2022 10:29 05/24 PM EDT 1:21 PM EDT Resulting Agency Comment Spec In Lab Melanie Parra MD MICROBIOLOGY - GENERAL ORDER AILEEN Performing Organization Address City/[facility]/[place] [address] Head wo Contrast (Generic) (06/09/2022 5:58 PM EDT)Only the most recent of2 resultswithin the time period is included. Anatomical Region Laterality Modality Head Computed Tomography Specimen (Source) Anatomical Collection Method Collection Time Re ceived Time Location / / Volume Laterality 06/09/2022 6:18 PM EDT Impressions 06/09/2022 7:46 PM EDT No evidence of intracranial hemorrhage, motion limited study. Thank you for letting us participate in the care of this patient. ??If you are a health care provider and have any questi ons regarding this report, please contact the number below. ??For patients who have questions please contact the health medicare biller that requested your imaging first. ? Electronically signed by: Ira Infante MD, [facility] ([phone]), at 06/09/2022 7:46 PM Narrative 06/09/2022 7:46 PM EDT EXAMINATION: CT HEAD WO CONTRAST (GENERIC) CLINICAL HISTORY: Stroke, follow up 24h s/p tPA TECHNIQUE: CT head performed without intravenous co ntrast administration. COMPARISON: CT head June 08, 2022 FINDINGS: Motion limited, particularly in the post erior fossa. Streak artifact from extracranial monitoring devices. No acut e intracranial hemorrhage, midline shift, mass effect or hydrocephalus. No extra-axial collection or territorial loss of morgan-white differentiation withi n the limitations of the study. Mild bilateral frontal, ethmoid and sphenoid sinus mucosal thickening. Moderate to severe bilateral maxillary sinus callosa l thickening with peripheral sclerosis and medial antrostomy on the left. Masto id air cells and middle ear cavities are clear. Procedure Note Ira Infante MD - 06/09/2022Formatt ing of this note might be different from the original. EXAMINATION: CT HEAD WO CONTRAST (GENERI C) CLINICAL HISTORY: Stroke, follow up 24h s/p tPA TECHNIQUE: CT head performed without intravenous co ntrast administration. COMPARISON: CT head June 08, 2022 FINDINGS: Motion limited, particularly in the post erior fossa. Streak artifact from extracranial monitoring devices. No acut e intracranial hemorrhage, midline shift, mass effect or hydrocephalus. No extra-axial collection or territorial loss of morgan-white differentiation withi n the limitations of the study. Mild bilateral frontal, ethmoid and sphenoid sinus mucosal thickening. Moderate to severe bilateral maxillary sinus callosa l thickening with peripheral sclerosis and medial antrostomy on the left. Masto id air cells and middle ear cavities are clear. IMPRESSION No evidence of intracranial hemorrhage, motion limited study. Thank you for letting us participate in the care of this patient. If you are a health care provider and have any questi ons regarding this report, please contact the number below. For patients w ho have questions please contact the health medicare biller that requested your imaging first. Electronically signed by: Ira Infante MD, [facility] ([phone]), at 06/09/2022 7:46 PM Aurea Cano COOPERER IMG CT ORDERABLES Non-Millinery Designer Final Report (06/09/2022 5:08 PM EDT)Only the most recent of7 results within the time period is included. Component Value Ref Test Analysis Performed At [facility] Range Method Time Signature Non-Millinery Designer Final [id number] ? Location: [facility]; [facility]; [facility] Simone MARSEILLES The signing pathologist has (i) examined the relevant preparation(s) for the [facility] specimen(s) and (ii) rendered or confirmed the diagnosis(es) . HOSPITAL LABORATORY . ? No n-Millinery Designer Final DIAGNOSIS Negative for Malignancy Electronically signed by: ?Americo MCKEON, Rene Verified: ??06/10/2022 17:11 ??Pathologist Performed at: ??-[facility] Dept. of Pathology, [place], [place] DISCUSSION Cerebrospinal fluid, lumbar: Lymphocytes, monocytes and debris are present. No overtly cytologically malignant cells seen. CLINICAL INFORMATION Specimen Source : Cerebrospinal fluid, lumbar Pertinent Clinical Data and Significant Therapy: Chemo/XRT ongoing for NSCLC. Obtunded, AMS. 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 clear, colorless fluid, Total Preparation: Cytospin 2. Specimen (Source) Anatomical Collection Method Collection Time Re ceived Time Location / / Volume Laterality 06/09/2022 5:08 PM EDT Carlton HUSSEIN PATHOLOGY/CYTOLOGY ORDERABLE S Performing Organization Address City/State/ZIP Code [place] [address] [facility] [address] Cytopathology Non-Gynecological (06/09/2022 5:08 PM EDT)Only the most recent of7 resultswithin the time period is included. Specimen Anatomical Collection Method Collection Time Receive d Time (Source) Location / / Volume Laterality AP Specimen 06/09/2022 5:08 PM 2 1:13 EDT PM EDT Narrative [facility] - 06/10/2022 1:13 PM EDT Specimen requisition ordered. ??Separate Pathology report to follow Resulting Agency Comment Spec In Lab Melanie Parra MD PATHOLOGY/CYTOLOGY ORDERABLE S Performing Organization Address City/State/ZIP Code Phon e Number [address] Insert Arterial Line (06/09/2022 4:19 PM EDT) Narrative Shasta Louis APRN - 06/09/2022 4: 19 PM EDT Shasta Louis APRN ? 06/09/2022 ??4:22 PM Arterial Line Placement Procedure Note Indication for Procedure: Arterial line was placed for invasive blood pressure monitoring and blood samp ling for laboratory test. Procedure Diagnosis: Hypotension, presso r support, sepsis Location of Procedure: Critical Care. Risks and Benefits: The risks and benefi ts of this procedure were reviewed and informed consent was obtain ed. ?? Time Out: Prior to the start of the proc edure, the patient's identity, intended procedure, site/side, correct patient positioning and presence of the site mar k was confirmed as applicable. The medical history and ely t were reviewed to rule out potential contraindications to the p lanned procedure. ?? Hand Hygiene: The director validation did perform h and hygiene prior to arterial line insertion. Procedure Prep: Sterile draping was appl ied. Skin was prepped with chlorhexidine. 2 ml of 1% Lidocaine was used for local anesthesia. Procedure Details: A 20 gauge, 2 inch ca theter was placed in the right radial artery and secured with sut ure. Tegaderm was applied. Ultrasound was used for guidanc e. Guide wire was used in this procedure. The guide wire had a mona meter of .018 inches. There were 3 attempts. ?? Findings: There were no procedure compli cations. Blood was drawn with ease. Good wave form. Procedure Comments: Pt tolerated procedu re well, no complications. Ultrasound guided with vi sualization of catheter in vessel. Melanie Parra MD PROCEDURE/MINOR SURGICAL ORD ERABLES ECHOCARDIOGRAM COMPLETE (06/09/2022 12:30 PM EDT) P athologist Signature EF 40 HEARTLAB SYSTEM Anatomical Region Laterality Modality Cardiac Other Specimen (Source) Anatomical Collection Method Collection Time Re ceived Time Location / / Volume Laterality 06/09/2022 11:42 AM EDT Narrative 06/09/2022 2:05 PM EDT ? Echocardiogram Report Name: CARLEY ALFORD ?Study Date: 06/09/2022 11:42 AMBP: 102/70 mmHg ? Patient Location: [place] [id number] A : 1965 ? Height: 71.5 in ? Account: [id number] Age: 56 yrs ? Weight: 192 lb Gender: Male ?BSA: 2.1 m2 Ordering Physician: AUREA CANO Referring Physician: CLAUDY PAN Performed By: ROBE Ga Reason For Study: CVA Interpreting Fellow: Kasi Powell. Exam Location[facility]. Interpretation Summary The left ventricle is mildly dilated by volume with moderately increased thickness of the basal septum without LVOT obstruc tion. The left ventricular systolic function is mildly reduced with ejection fraction that is estimated visually at 40%. There is global hypokinesis. The right venticle is of normal size and function. The estimated pulmonary artery systolic pressure is 38 mmHg. The atria are normal in size. There is n o evidence of a PFO with administration of agitated saline. There is evidence of la te bubbles suggestive of a pulmonary AVM. There is no hemodynamically significant valve disease. There is no prior study for comparison. Procedure Complete-22114. Satisfactory quality. Th ere is normal sinus rhythm. Left Ventricle Left ventricle is mildly dilated. Wall t hickness is mildly increased. Moderately increased thickness of the basal septum with no obstruction to LV outflow. There is no ventricular septal defect. Left ve ntricular systolic function is mildly reduced. Left ventricular ejection fract ion is estimated visually at 40%. The left ventricular ejection fraction is 37% by Posada's biplane. Moderate global hypokinesis. Right Ventricle The right ventricle is of normal size. R ight ventricular systolic function is normal. Left Atrium The left atrium is normal. There is no e vidence for a patent foramen ovale visualized with agitated saline. There a re late bubbles suggestive of a pulmonary AVM. Right Atrium The right atrium is normal. Aortic Valve The aortic valve is not well visualized. There is no aortic stenosis. There is no aortic regurgitation. Mitral Valve The mitral valve is structurally normal. There is no mitral stenosis. There is mild mitral regurgitation. Tricuspid Valve The tricuspid valve is structurally norm al. There is no tricuspid stenosis. There is trace tricuspid regurgitation. Pulmonic Valve The pulmonic valve is not well visualize d. Great Arteries The aortic root at the level of the sinu ses of Valsalva is mildly dilated. 3.8cm. The ascending aorta is not well visualiz ed. The pulmonary artery is not well visualized. Venous Patient is mechanically ventilated. Infe rior vena cava is dilated. Inferior vena cava collapse less than 50% with respira tion. Pericardium/Pleural There is no pericardial effusion. A elisha cardial fat pad is present. Hemodynamics The peak right ventricular systolic pres sure is 38 mmHg. The estimated right atrial pressure is 15mmHg. Left ventricu lar filling pressure is indeterminate. Ejection Fraction ?2D Measurem ents ? Volumes LV Biplane EF: 37.2 % ? IVSd: 1.9 cm ? LA Volume Index: ?L VIDd: 4.4 cm ?L VIDs: 3.7 cm ?37.9 ml/m2 ?L VPWd: 1.4 cm ?EDV Biplane: 160.1 ml ?L V mass(C)d: 310.6 grams ? EDV Biplane Index: 77.1 ? ESV Biplane: 100.6 ml ?L V mass(C)dI: 149.5 grams/m2 ?? ESV Biplane Index: 48.4 ?A o root diam: 3.8 cm ? SV(LVOT): 90.2 ml ?A o root diam index: 1.8 ?LV Stroke Volume: 90.1 ml ?L VOT diam: 2.3 cm ?SI(LVOT): 43.4 ml/m2 ?T APSE_phl: 1.8 cm Doppler TR max delroy: 238.8 cm/sec Lat Peak E' Delroy: 12.7 cm/sec Med Peak E' Delroy: 6.7 cm/sec I ?WMSI = 2.00 ? % Normal = 0 ?Segments ??Size X - Cannot ?? 1 - Normal ?? 2 - ? 3 - Akinetic 4 - ?1-2 ? small Interpret ? Hypoki netic ?Dyskinetic ?? 3-5 ? moderate 5 - ? 6-14 ?large Aneurysmal ?15-16 ?? diffuse Procedure Note Melissa Valles MD - 06/09/2022Format ting of this note might be different from the original. Echocardiogram Report Name: CARLEY ALFORD Study Date: 022 11:42 AMBP: 102/70 mmHg Patient Location: [facility] [address] A : 1965 Height: 71.5 in Account: [id number] Age: 56 yrs Weight: 192 lb Gender: Male BSA: 2.1 m2 Ordering Physician: AUREA CANO Referring Physician: CLAUDY PAN Performed By: ROBE Ga Reason For Study: CVA Interpreting Fellow: Kasi Powell. Exam Location: [facility]. Interpretation Summary The left ventricle is mildly dilated by volume with moderately increased thickness of the basal septum without LVOT obstruc tion. The left ventricular systolic function is mildly reduced with ejection fraction that is estimated visually at 40%. There is global hypokinesis. The right venticle is of normal size and function. The estimated pulmonary artery systolic pressure is 38 mmHg. The atria are normal in size. There is n o evidence of a PFO with administration of agitated saline. There is evidence of la te bubbles suggestive of a pulmonary AVM. There is no hemodynamically significant valve disease. There is no prior study for comparison. Procedure Complete-06910. Satisfactory quality. Th ere is normal sinus rhythm. Left Ventricle Left ventricle is mildly dilated. Wall t hickness is mildly increased. Moderately increased thickness of the basal septum with no obstruction to LV outflow. There is no ventricular septal defect. Left ve ntricular systolic function is mildly reduced. Left ventricular ejection fract ion is estimated visually at 40%. The left ventricular ejection fraction is 37% by Posada's biplane. Moderate global hypokinesis. Right Ventricle The right ventricle is of normal size. R ight ventricular systolic function is normal. Left Atrium The left atrium is normal. There is no e vidence for a patent foramen ovale visualized with agitated saline. There a re late bubbles suggestive of a pulmonary AVM. Right Atrium The right atrium is normal. Aortic Valve The aortic valve is not well visualized. There is no aortic stenosis. There is no aortic regurgitation. Mitral Valve The mitral valve is structurally normal. There is no mitral stenosis. There is mild mitral regurgitation. Tricuspid Valve The tricuspid valve is structurally norm al. There is no tricuspid stenosis. There is trace tricuspid regurgitation. Pulmonic Valve The pulmonic valve is not well visualize d. Great Arteries The aortic root at the level of the sinu ses of Valsalva is mildly dilated. 3.8cm. The ascending aorta is not well visualiz ed. The pulmonary artery is not well visualized. Venous Patient is mechanically ventilated. Infe rior vena cava is dilated. Inferior vena cava collapse less than 50% with respira tion. Pericardium/Pleural There is no pericardial effusion. A elisha cardial fat pad is present. Hemodynamics The peak right ventricular systolic pres sure is 38 mmHg. The estimated right atrial pressure is 15mmHg. Left ventricu lar filling pressure is indeterminate. Ejection Fraction 2D Measurements Volume s LV Biplane EF: 37.2 % IVSd: 1.9 cm LA Vo lume Index: LVIDd: 4.4 cm LVIDs: 3.7 cm 37.9 ml/m2 LVPWd: 1.4 cm EDV Biplane: 160.1 ml LV mass(C)d: 310.6 grams EDV Biplane In dex: 77.1 ESV Biplane: 100.6 ml LV mass(C)dI: 149.5 grams/m2 ESV Biplan e Index: 48.4 Ao root diam: 3.8 cm SV(LVOT): 90.2 ml Ao root diam index: 1.8 LV Stroke Volum e: 90.1 ml LVOT diam: 2.3 cm SI(LVOT): 43.4 ml/m2 TAPSE_phl: 1.8 cm Doppler TR max delroy: 238.8 cm/sec Lat Peak E' Delory: 12.7 cm/sec Med Peak E' Delroy: 6.7 cm/sec I WMSI = 2.00 % Normal = 0 Segments Size X - Cannot 1 - Normal 2 - 3 - Akinetic 4 - 1-2 small Interpret Hypokinetic Dyskinetic 3-5 mod erate 5 - 6-14 large Aneurysmal 15-16 diffuse Aurea Kinney Cano COOPERER ECHO ORDERABLES (ABNORMAL) Opioids Confirmation Panel, Urine (06/09/2022 2:29 AM EDT)Only the most recent of3 resultswithin the time period is included. Component Value Ref Test Analysis Performed At [facility] Range Method Time Signature Targeted CHRISTEN Opioid Test ?Result ? Flag ??Unit ?? RefValue ARUN Panel, Urine MEM[facility]IAL Targeted Opioid Screen, U HOSP ITAL ??List prescribed opioids ? See medica tion list LABORATORY ? ADDITIONAL INFORMATION ------ ?Accuracy and completeness of declared medications on ?reports solely dependent on information submitted by ?client. ??Codeine ? Not Detected ? ng/mL ??Cutoff: 25 ?Tylenol 3 ??Qvphrqu-9-jytg-glucuronid e ?Not Detected ? ng/mL ??Cutoff: 100 ?Metabolite of codeine ??Morphine ?Not Detected ? ng/mL ??Cutoff: 25 ?Dunia Garnett, MS Contin; Also a minor metabolite (10 %) of ?codeine and can be seen in low concentrations (<2,000 ?ng/mL) with poppy seed ingestion. ??Ubkiddsc-9-scxw-glucuroni de ? Not Detected ? ng/mL ??Cutoff: 100 ?Metabolite of morphine ??6-monoacetylmorphine ?Not Detected ? ng/mL ??Cutoff: 25 ?Metabolite of heroin ??Hydrocodone ? Not Detected ? ng/mL ??Cutoff: 25 ?Lortab, [place], Vicodin; Also a very minor metabolite o f ?codeine and impurity (<1%) of oxycodone. ??Norhydrocodone ?Not Detected ? ng/mL ??Cutoff: 25 ?Metabolite of hydrocodone ??Dihydrocodeine ?Not Detected ? ng/mL ??Cutoff: 25 ?Metabolite of hydrocodone ??Hydromorphone ? Not Detected ? ng/mL ??Cutoff: 25 ?Dilaudid, Exalgo; Also a metabolite of hydrocodone and a ?minor (<5%) metabolite of morphine. ??Ygbgzvtkdbfpg-2-ludu-gluc uronide ?Not Detected ? ng/mL ??Cutoff: 100 ?Metabolite of hydromorphone ??Oxycodone ? Not Detected ? ng/mL ??Cutoff: 25 ?Endocet, Percocet, Oxycontin ??Noroxycodone ?Not Detected ? ng/mL ??Cutoff: 25 ?Metabolite of oxycodone ??Oxymorphone ? Not Detected ? ng/mL ??Cutoff: 25 ?Numorphan, Opana; Also a metabolite of oxycodone. ??Bohihmfblgn-9-dmqs-glucur onide ?Not Detected ? ng/mL ??Cutoff: 100 ?Metabolite of oxymorphone and/or naloxone (nornaloxone ) ??Noroxymorphone ?Not Detected ? ng/mL ??Cutoff: 25 ?Metabolite of oxymorphone and/or naloxone (nornaloxone ) ??Fentanyl ?Present ? @ ?ng/mL ??Cutoff: 2 ?Actiq, Duragesic, Fentora ??Norfentanyl ? Present ? @ ?ng/mL ??Cutoff: 2 ?Metabolite of fentanyl ??Meperidine ?Not Detected ? ng/mL ??Cutoff: 25 ?Demerol ??Normeperidine ? Not Detected ? ng/mL ??Cutoff: 25 ?Metabolite of meperidine ??Naloxone ?Not Detected ? ng/mL ??Cutoff: 25 ?Narcan ??Pywtkwka-6-eglt-glucuroni de ? Not Detected ? ng/mL ??Cutoff: 100 ?Metabolite of naloxone ??Methadone ? Not Detected ? ng/mL ??Cutoff: 25 ?Dolophine ??EDDP ?Not Detected ? ng/mL ??Cutoff: 25 ?Metabolite of methadone ??Propoxyphene ?Not Detected ? ng/mL ??Cutoff: 25 ?Darvon, Darvocet ??Norpropoxyphene ? Not Detected ? ng/mL ??Cutoff: 25 ?Metabolite of propoxyphene ??Tramadol ?Not Detected ? ng/mL ??Cutoff: 25 ?Tradol, Ultram, Ultracet ??O-desmethyltramadol ? Not Detected ? ng/mL ??Cutoff: 25 ?Metabolite of tramadol ??Tapentadol ?Not Detected ? ng/mL ??Cutoff: 25 ?Nucynta ??N-desmethyltapentadol ? Not Detected ? ng/mL ??Cutoff: 50 ?Metabolite of tapentadol ??Uipimiqoaf-ylma-rvqfzyzan de ? Not Detected ? ng/mL ??Cutoff: 100 ?Metabolite of tapentadol ??Buprenorphine ? Not Detected ? ng/mL ??Cutoff: 5 ?Buprenex, Suboxone ??Norbuprenorphine ?Present ? @ ?ng/mL ??Cutoff: 5 ?Metabolite of buprenorphine ??Norbuprenorphine glucuron alexi ?Present ? @ ?ng/mL ??Cutoff: 20 ?Metabolite of buprenorphine ??Opioid Interpretation ? SEE COMMENT S ?Test detected the presence of norbuprenorphine and ?norbuprenorphine glucuronide which are metabolites of ?buprenorphine. Suspect use of buprenorphine within the past ?three days. ?Test detected the presence of fentanyl and its metabol ite ?(norfentanyl). Suspect use of fentanyl within the past ?three days. ? ADDITIONAL INFORMATION ------ ?This test was developed and its performance characteri stics ?determined by [facility] in a manner consistent with CLIA ?requirements. This test has not been cleared or approv ed by ?the U.S. Food and Drug Administration. ?Test Performed by: ?[facility] ?[address] [place] [address] ?Machine Feeder: Harry Angel M.D. Ph.D.; CLIA# [id number] (A) Specimen Anatomical Collection Method Collection Time Receive d Time (Source) Location / / Volume Laterality Urine 06/09/2022 2:29 AM 2 9:16 EDT AM EDT Aurea Cano APRN URINE ORDERABLES Performing Organization Address City/State/[place] [address] U Tricyclics Confirmation (06/09/2022 2:29 AM EDT) [facility] gist Method Time Signature [employer] [facility]ST [facility] Comment: FLEXITEST 4 ANTIDEPRESSANT PANEL U (QL) AMITRYPTYLINE ? Negative NORTRIPTYLINE ? Negative IMIPRAMINE ?Negative DESIPRAMINE ? Negative DOXEPIN ? Negative CLOMIPRAMINE ?Negative FLUOXETINE ?Negative ?Reference Ran ge: No Compound Detected This test was developed and its analytic al performance characteristics have been determined by [employer] [place], [place]. It has not been cleared or approved by the U.S. Food and Drug Administration. This assay has been ruperto dated pursuant to the CLIA regulations and is used for clinical purposes. Test Performed by [facility], [employer] [facility], [address] [place], [place] [address] Roel Arevalo M.D., Ph.D., Director [email or web address] , CLIA [id number] Specimen Anatomical Collection Method Collection Time Receive d Time (Source) Location / / Volume Laterality Urine 06/09/2022 2:29 AM 2 9:54 EDT AM EDT Resulting Agency Comment Spec In Lab Aurea Cano APRN URINE ORDERABLES Performing Organization Address City/[facility]/[place] [address] Rapid Drug Screen, Urine (AKIRA Request) (06/09/2022 2:29 AM EDT)Only the most recent of5 resultswithin the time period is included. [facility] Docker Method Time Signature AKIRA Conf Yes [facility] LABORATORY AKIRA Requested See Comment [facility] LABORATORY Comment: Refer to Rapid Drug Screen w/ C onfirmation, Urine for results. Specimen Anatomical Collection Method Collection Time Receive d Time (Source) Location / / Volume Laterality Urine 06/09/2022 2:29 AM 2 2:40 EDT AM EDT Resulting Agency Comment Spec In Lab Aurea Cano APRN URINE ORDERABLES Performing Organization Address City/[facility]/ZIP [facility] Phon e Number [address] (ABNORMAL) Rapid Drug Screen w/ Confirmation, Urine (06/09/2022 2:29 AM EDT)Only the most recent of3 resultswithin the time period is included. [facility] Docker Method Time Signature U Barbiturates None None CHRISTEN Screen Detected Detected [facility] LABORATORY Comment: The barbiturate screen detects barbitura omid at concentrations >200 ng/mL. Note: Not all barbiturates cross-react equally with antibody used in this screen. A ? Presumptive Positive? result indicates that the screening result was positive but has not yet been confirmed by a highly-specific method. As with any screen, occasional false positive re sults from cross-reacting substances may occur. Not for Medico-Legal Purposes. U Benzodiazepines Screen None Detected None Detected [facility] LAB[facility] Comment: The benzodiazepines screen detects benzo diazepines at concentrations >100 ng/mL. Not all benzodiazepines cross-sandra ct equally with antibody used in this screen. Due to the low dosage of clonaze tucker, false negatives may be obtained due to low concentration of clonazepam m etabolites. A ? Presumptive Positive? result indicates that the screening result was positive but has not yet been confirmed by a highly-specific method. As with any screen, occasional false positive re sults from cross-reacting substances may occur. Not for Medico-Legal Purposes. U Cocaine Screen None Detected None Detected [facility] Comment: The cocaine metabolites screen detects b enzoylecgonine (Cocaine Metabolite) at concentrations >150 ng/mL. A ? Presumptive Positive? result indicates that the screening result was positive but has not yet been confirmed by a highly-specific method. As with any screen, occasional false positive re sults from cross-reacting substances may occur. Not for Medico-Legal Purposes. U Methadone Metabolites None Detected None Detected [facility] LABORATORY Comment: The methadone metabolite screen detects EDDP (major methadone metabolite) at concentrations >100 ng/mL. A ? Presumptive Positive? result indicates that the screening result was positive but has not yet been confirmed by a highly-specific method. As with any screen, occasional false positive re sults from cross-reacting substances may occur. Not for Medico-Legal Purposes. U Opiate Screen None Detected None Detected [facility] LABORATORY Comment: The opiates screen detects opiates at co ncentrations >300 ng/mL. Please note that oxycodone, oxymorphone, fentanyl, tramadol, and other synthetic opioids are not detected by e opiate screen. A ? Presumptive Positive? result indicates that the screening result was positive but has not yet been confirmed by a highly-specific method. As with any screen, occasional false positive re sults from cross-reacting substances may occur. Not for Medico-Legal Purposes. U Cannabinoid Screen Presumptive Pos (A) None Detected [facility] Comment: The marijuana metabolites screen detects the THC metabolite (63-lko-2-carboxy-delta 9-THC) at concen trations >20 ng/mL. A ? Presumptive Positive? result indicates that the screening result was positive but has not yet been confirmed by a highly-specific method. As with any screen, occasional false positive re sults from cross-reacting substances may occur. Not for Medico-Legal Purposes. U Oxycodone Screen None Detected None Detected [facility] Comment: The oxycodone screen detects oxycodone a nd oxymorphone at concentrations >100 ng/mL. A ? Presumptive Positive? result indicates that the screening result was positive but has not yet been confirmed by a highly-specific method. As with any screen, occasional false positive re sults from cross-reacting substances may occur. Not for Medico-Legal Purposes. U Buprenorphine Screen Presumptive Pos (A) None Detected [facility] Comment: The buprenorphine screen detects bupreno rphine at concentrations >5 ng/mL. A ? Presumptive Positive? result indicates that the screening result was positive but has not yet been confirmed by a highly-specific method. As with any screen, occasional false positive re sults from cross-reacting substances may occur. Not for Medico-Legal Purposes. U Fentanyl Screen Presumptive Pos (A) None Detected [facility] Comment: The fentanyl screen detects fentanyl at concentrations >2 ng/mL. A ? Presumptive Positive? result indicates that the screening result was positive but has not yet been confirmed by a highly-specific method. As with any screen, occasional false positive re sults from cross-reacting substances may occur. Not for Medico-Legal Purposes. U Tricyclics Screen Presumptive Pos (A) None Detected [facility] Comment: The tricyclics screen detects tricyclic antidepressants at concentrations >150 ng/mL. Not all tricyclics cross-react eq ually with the antibody used in this screen. A ? Presumptive Positive? result indicates that the screening result was positive but has not yet been confirmed by a highly-specific method. As with any screen, occasional false positive re sults from cross-reacting substances may occur. Not for Medico-Legal Purposes. U Ethanol Screen None Detected None Detected [facility] Comment: This urine ethanol assay detect s ethanol at concentrations >/= 100 mg/L. U Amphetamines Screen None Detected None Detected [facility] Comment: The amphetamine screen detects d-ampheta mine and d-methamphetamine at concentrations >300 ng/mL. A ? Presumptive Positive? result indicates that the screening result was positive but has not yet been confirmed by a highly-specific method. As with any screen, occasional false positive re sults from cross-reacting substances may occur. Not for Medico-Legal Purposes. U Adulterants Screen None Detected None Detected Jaky [facility] Comment: No adulteration or dilution of this urin e sample was detected. All urine samples submitted for urine drugs of abu se analysis are tested for creatinine concentration, pH, and for the presence of oxidants, nitrites, and chromate. Specimen Anatomical Collection Method Collection Time Receive d Time (Source) Location / / Volume Laterality Urine 06/09/2022 2:29 AM 2 2:40 EDT AM EDT Resulting Agency Comment Spec In Lab Aurea Cano APRN CHEMISTRY ORDERABLES Performing Organization Address City/State/ZIP Code Phon e Number [place] [id number] THC (Marijuana), Urine Confirmation (06/09/2022 2:29 AM EDT)Only the most recent of2 resultswithin the time period is included. Component Value Ref Test Analysis Performed At [facility] Range Method Time Signature U THC Conf CHRISTEN Test ? Result ?Flag ??Unit ?? RefValue [facility] Carboxy-THC Confirmation, U HO SPITAL ??Carboxy-THC- by GC/MS ?95 ?ng/mL ??Cutoff: 3.0 LABORATORY ??Carboxy-THC Interpretation ? Positive. ? ADDITIONAL INFORMATION ------ ?This report is intended for use in clinical monitoring and ?management of patients. ??It is not intended for use i n ?employment-related testing. ?This test was developed and its performance characteri stics ?determined by [facility] in a manner consistent with CLIA ?requirements. This test has not been cleared or approv ed by ?the U.S. Food and Drug Administration. ?Test Performed by: ?[facility] - [address] ?[address] [place] [address] ?Machine Feeder: Harry Angel M.D. Ph.D.; CLIA# [id number] Specimen Anatomical Collection Method Collection Time Receive d Time (Source) Location / / Volume Laterality Urine 06/09/2022 2:29 AM 2 9:16 EDT AM EDT Resulting Agency Comment Spec In Lab Aurea Cano COOPERER URINE ORDERABLES Performing Organization Address City/State/ZIP Code [place] [address] Type and Screen Validity (06/09/2022 12:37 AM EDT) [facility] gist Method Time Signature T&S only valid [facility] Comment: This Type and Screen result is only valid at the [facility] Specimen Anatomical Collection Method Collection Time Receive d Time (Source) Location / / Volume Laterality Blood Venous Draw / 06/09/2022 12:37 06/09/2022 Unknown AM EDT 12:42 AM EDT Resulting Agency Comment Spec In Lab Aurea Cano APRN BLOOD BANK ORDERABLES Performing Organization Address City/[facility]/ZIP Code Phon e Number [address] ABORH Recheck Status (06/09/2022 12:37 AM EDT) Patholo gist Method Time Signature ABORH Type Completed [facility] LABORATORY Specimen Anatomical Collection Method Collection Time Receive d Time (Source) Location / / Volume Laterality Blood Venous Draw / 06/09/2022 12:37 06/09/2022 Unknown AM EDT 12:42 AM EDT Resulting Agency Comment Spec In Lab Aurea Cano APRN BLOOD BANK ORDERABLES Performing Organization Address City/[facility]/ZIP Code Phon e Number [address] Antibody screen manual (06/09/2022 12:37 AM EDT) Analysis Performed At [facility] logist Time Signature AB Screen Negative [facility] LABORATORY Specimen Anatomical Collection Method Collection Time Receive d Time (Source) Location / / Volume Laterality Blood Venous Draw / 06/09/2022 12:37 06/09/2022 Unknown AM EDT 12:42 AM EDT Resulting Agency Comment Spec In Lab Aurea Cano APRN BLOOD BANK ORDERABLES Performing Organization Address City/[facility]/[place] [address] ABORh Type Manual (06/09/2022 12:37 AM EDT) [facility] gist Method Time Signature Expires at 06/12/2022 CHRISTEN ARUN 2359 on: [facility] ABORh Type B Neg [facility] Specimen Anatomical Collection Method Collection Time Receive d Time (Source) Location / / Volume Laterality Blood Venous Draw / 06/09/2022 12:37 06/09/2022 Unknown AM EDT 12:42 AM EDT Resulting Agency Comment Spec In Lab Aurea Cano APRN BLOOD BANK ORDERABLES Performing Organization Address City/State/[place] [address] (ABNORMAL) PTH (06/09/2022 12:30 AM EDT) athologist Signature PTH 100 (H) 15 - 65 [facility] pg/mL [facility] Specimen Anatomical Collection Method Collection Time Receive d Time (Source) Location / / Volume Laterality Blood Venous Draw / 06/09/2022 12:30 06/09/2022 8:34 Unknown AM EDT AM EDT Resulting Agency Comment Spec In Lab Jeff Cox COOPERER CHEMISTRY ORDERABLES Performing Organization Address City/State/ZIP Code Phon e Number [address] APTT (06/09/2022 12:30 AM EDT)Only the most recent of2 resultswithin the time period is included. athologist Signature PTT 30 25 - 37 sec [facility] Comment: The PTT is NOT appropriate for heparin m onitoring. Use the Anti-Xa level for heparin monitoring (HEP UFH) or LMWH mon itoring (HEP LMW). A PTT less than 37 seconds generally indicates adequate hem ostasis. Specimen Anatomical Collection Method Collection Time Receive d Time (Source) Location / / Volume Laterality Blood 06/09/2022 12:30 06/09/2022 AM EDT 12:42 AM EDT Resulting Agency Comment Spec In Lab Aurea Cano COOPERER HEMATOLOGY ORDERABLES Performing Organization Address City/State/[place] [address] (ABNORMAL) Prothrombin Time (06/09/2022 12:30 AM EDT)Only the most recent of2 resultswithin the time period is included. athologist Signature PT 13.8 (H) 9.4 - 12.5 [facility] LABORATORY INR 1.2 [facility] Comment: An INR <2.0 indicates adequate procoagul ant activity for hemostasis in most patients without underlying bleeding dis orders, though the INR may not adequately reflect hemostatic capacity i n patients with liver disease and synthetic impairment. The recommended ta rget INR range for therapeutic anticoagulation is 2.0 ? 3.0 for most applications, though lower and higher ranges may be appropriate depending on c linical circumstances. Specimen Anatomical Collection Method Collection Time Receive d Time (Source) Location / / Volume Laterality Blood 06/09/2022 12:30 06/09/2022 AM EDT 12:42 AM EDT Resulting Agency Comment Spec In Lab Aurea Cano COOPERER HEMATOLOGY ORDERABLES Performing Organization Address City/State/ZIP Code Phon e Number [place] [phone]OS[address] LAB[address]ORY Drive CT Angiogram Carotids & [place] (06/08/2022 10:53 PM EDT) Anatomical Region Laterality Modality Neck, Head Computed Tomography Specimen (Source) Anatomical Collection Method Collection Time Re ceived Time Location / / Volume Laterality 06/08/2022 10:53 PM EDT Impressions 06/08/2022 11:38 PM EDT No intracranial large vessel occlusion. Thank you for letting us participate in the care of this patient. ??If you are a health care provider and have any questi ons regarding this report, please contact the number below. ??For patients who have questions please contact the health medicare biller that requested your imaging first. ? Electronically signed by: Jaky Beatty, [facility] ([phone]), at 06/08/2022 11:38 PM Narrative 06/08/2022 11:38 PM EDT EXAMINATION: CT ANGIOGRAM CAROTIDS AND [place] CLINICAL HISTORY: Neuro deficit, acute, stroke suspected; transfer s/p tPA, thrombectomy candidate but needs updated imaging TECHNIQUE: CTA of the head and neck performed after the intravenous administration contrast. 65 mL Omnipaque 350. MIP and 3 -D volumetric reconstructions were created. COMPARISON: CT head without contrast 06/08/2022. CT c hest 05/10/2022. FINDINGS: Three-vessel aortic arch. Patent origins of the great vessels. Bilateral CCAs, bilateral ICAs, bilatera l MCAs, bilateral ACAs, and are dictated communicating arteries are patent withou t evidence of hemodynamically significant stenosis, aneurysm or dissec tion. Retroverted arteries, basilar artery, an d bilateral soft sugar supervisor are patent. Unchanged smooth narrowing of the proximal left ve rtebral artery V1 segment secondary to encasement by the known left upper lung/ superior mediastinal mass. No aneurysm or dissection in the posterior circulati on. Unchanged asymmetrically enlarged left v entricular gland. No cervical lymphadenopathy. Please see dedicated CT chest for thoracic findings including abdominal masses and pulmonary airspace disease. Multilevel degenerative changes in the spine. No acute fracture or dislo cation is evident. Procedure Note Jaida Adames MD - 06/08/2022Formattin g of this note might be different from the original. EXAMINATION: CT ANGIOGRAM CAROTIDS AND C [place] CLINICAL HISTORY: Neuro deficit, acute, stroke suspected; transfer s/p tPA, thrombectomy candidate but needs updated imaging TECHNIQUE: CTA of the head and neck performed after the intravenous administration contrast. 65 mL Omnipaque 350. MIP and 3 -D volumetric reconstructions were created. COMPARISON: CT head without contrast 06/08/2022. CT c hest 05/10/2022. FINDINGS: Three-vessel aortic arch. Patent origins of the great vessels. Bilateral CCAs, bilateral ICAs, bilatera l MCAs, bilateral ACAs, and are dictated communicating arteries are patent withou t evidence of hemodynamically significant stenosis, aneurysm or dissec tion. Retroverted arteries, basilar artery, an d bilateral soft sugar supervisor are patent. Unchanged smooth narrowing of the proximal left ve rtebral artery V1 segment secondary to encasement by the known left upper lung/ superior mediastinal mass. No aneurysm or dissection in the posterior circulati on. Unchanged asymmetrically enlarged left v entricular gland. No cervical lymphadenopathy. Please see dedicated CT chest for thoracic findings including abdominal masses and pulmonary airspace disease. Multilevel degenerative changes in the spine. No acute fracture or dislo cation is evident. IMPRESSION No intracranial large vessel occlusion. Thank you for letting us participate in the care of this patient. If you are a health care provider and have any questi ons regarding this report, please contact the number below. For patients w ho have questions please contact the health medicare biller that requested your imaging first. Electronically signed by: Jaky Beatty, [facility] ([phone]), at 06/08/2022 11:38 PM Melanie Parra MD IMG CT ORDERABLES CT Chest wo Contrast (Generic) (06/08/2022 10:53 PM EDT) Anatomical Region Laterality Modality Chest Computed Tomography Specimen (Source) Anatomical Collection Method Collection Time Re ceived Time Location / / Volume Laterality 06/08/2022 10:53 PM EDT Impressions 06/09/2022 12:02 AM EDT * ??Multifocal pneumonia. * ??Grossly similar size of the left upp er lung mass invading into the mediastinum. 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 * ??Hepatic steatosis Thank you for letting us participate in the care of this patient. ??If you are a health care provider and have any questi ons regarding this report, please contact the number below. ??For patients who have questions please contact the health medicare biller that requested your imaging first. ? Electronically signed by: Jaky Beatty, [facility] ([phone]), at 06/09/2022 12:02 AM Narrative 06/09/2022 12:02 AM EDT EXAMINATION: CT CHEST WO CONTRAST (GENERIC) CLINICAL HISTORY: Pneumonia, unresolved; hypercarbic requiring intubation TECHNIQUE: 3.75 mm thick axial contiguou s sections were obtained through the chest via helical acquisition without in travenous contrast administration. Thin-section reconstructions as well as coronal and sagittal reformatted images were generated. COMPARISON: CT chest 05/10/2022. Chest x- ray 06/08/2022 FINDINGS: Airways: Patent central airways. Debris in bilateral lower lobe bronchi.. Pulmonary parenchyma, pleura: Cystic and bullous changes bilaterally. Extensive bilateral multifocal consolidative opaci ties, some with air bronchograms are new since 05/10/2022. Bilateral interlobular septal thickening. Grossly similar size of the large left upper lung mass invadi ng into the mediastinum. No pleural effusion or pneumothorax. Lymph nodes: Interval enlargement of pre tracheal, paratracheal, prevascular, and bilateral hilar lymph nodes. Unchanged s ize of the subcarinal lymph node. Heart, pericardium, and great vessels: C oronary arterial calcifications. Unchanged cardiac size. Scattered foci o f venous gas, likely related to IV access. Encasement of left subclavian ar alexander by the left upper lung mass. The left lung mass also abuts the aortic arc h. Other mediastinal structures: As above. Enteric tube terminates in the stomach. Lower neck: As above. Upper abdomen: Hepatic steatosis. Body wall soft tissues: No significant f indings. Skeletal structures: Degenerative change s in the spine. No acute or suspicious osseous lesion. Procedure Note Jaida Adames MD - 06/09/2022Formattin g of this note might be different from the original. EXAMINATION: CT CHEST WO CONTRAST (GENER IC) CLINICAL HISTORY: Pneumonia, unresolved; hypercarbic requiring intubation TECHNIQUE: 3.75 mm thick axial contiguou s sections were obtained through the chest via helical acquisition without in travenous contrast administration. Thin-section reconstructions as well as coronal and sagittal reformatted images were generated. COMPARISON: CT chest 05/10/2022. Chest x- ray 06/08/2022 FINDINGS: Airways: Patent central airways. Debris in bilateral lower lobe bronchi.. Pulmonary parenchyma, pleura: Cystic and bullous changes bilaterally. Extensive bilateral multifocal consolidative opaci ties, some with air bronchograms are new since 05/10/2022. Bilateral interlobular septal thickening. Grossly similar size of the large left upper lung mass invadi ng into the mediastinum. No pleural effusion or pneumothorax. Lymph nodes: Interval enlargement of pre tracheal, paratracheal, prevascular, and bilateral hilar lymph nodes. Unchanged s ize of the subcarinal lymph node. Heart, pericardium, and great vessels: C oronary arterial calcifications. Unchanged cardiac size. Scattered foci o f venous gas, likely related to IV access. Encasement of left subclavian ar alexander by the left upper lung mass. The left lung mass also abuts the aortic arc h. Other mediastinal structures: As above. Enteric tube terminates in the stomach. Lower neck: As above. Upper abdomen: Hepatic steatosis. Body wall soft tissues: No significant f indings. Skeletal structures: Degenerative change s in the spine. No acute or suspicious osseous lesion. IMPRESSION * Multifocal pneumonia. * Grossly similar size of the left upper lung mass invading into the mediastinum. * Progressive mediastinal and right late ral hilar lymphadenopathy likely represents reactive changes superimposed on neoplastic disease. * Hepatic steatosis Thank you for letting us participate in the care of this patient. If you are a health care provider and have any questi ons regarding this report, please contact the number below. For patients w ho have questions please contact the health medicare biller that requested your imaging first. Electronically signed by: Jaky Beatty, [facility] ([phone]), at 06/09/2022 12:02 AM Melanie Parra MD IMG CT ORDERABLES Troponin (06/08/2022 10:44 PM EDT)Only the most recent of3 resultswithin the time period is included. P athologist Signature Troponin-T <0.01 0.00 - 0.00 [facility] ng/mL [facility] Comment: The 99th percentile for Troponin T is le ss than 0.01 ng/mL, any detectable cTnT concentration using this assay should be considered elevated. According to the third universal definit ion of myocardial infarction the following criteria with a clinical prese ntation consistent with acute myocardial ischemia meets the diagnosis for a myocardial infarction (TN). Detection of a rise and/or fall of cTnT, with at least one value greater than the 99th percentile (> or = 0.01) and wi th at least one of the following ?? Symptoms of ischemia ?? New or presumed new significant ST-se gment-T wave (ST-T) changes or new left bundle branch block (LBBB) ?? Development of pathologic Q waves in the ECG ?? Imaging evidence of new loss of viabl e myocardium or new regional wall motion abnormality ?? Identification of an intracoronary th rombus by angiography or autopsy Samples for cTnT testing should be obtai katharine serially upon first assessment and again 3 to 6 hours later. If the clinica l suspicion is high and previous samples have been negative an additional sample may be indicated. Reference: Third [place] Definition of Myocardial Infarction. Journal of the [place] [employer] 2012;60:1581-98 Specimen Anatomical Collection Method Collection Time Receive d Time (Source) Location / / Volume Laterality Blood Venous Draw / 06/08/2022 10:44 06/08/2022 Unknown PM EDT 10:44 PM EDT Resulting Agency Comment Spec In Lab Aurea aCno APRN CHEMISTRY ORDERABLES Performing Organization Address City/[facility]/ZIP [facility] Phon e Number [address] LDL Cholesterol, Direct (06/08/2022 10:44 PM EDT) P athologist Signature LDL Chol 9 mg/dL [facility] LABORATORY Comment: Lowest Risk: <100 mg/dL Lower Risk: 100-129 mg/dL Borderline High Risk: 130-159 mg/dL High Risk: 160-189 mg/dL Very High Risk: >bi=588 mg/dL Specimen Anatomical Collection Method Collection Time Receive d Time (Source) Location / / Volume Laterality Blood Venous Draw / 06/08/2022 10:44 06/08/2022 Unknown PM EDT 10:44 PM EDT Resulting Agency Comment Spec In Lab Aurea Cano APRN CHEMISTRY ORDERABLES Performing Organization Address City/[facility] [place] [address] HDL/Cholesterol Profile (06/08/2022 10:44 PM EDT) P athologist Signature Chol, Total 45 mg/dL [facility] Comment: Lower Risk: <200 mg/dL Average Risk: 200-239 mg/dL Higher Risk: >fo=695 mg/dL HDL 25 mg/dL [facility] Comment: Males: ?? Higher Risk: <40 mg/dL Females: ?? Higher Risk: <50 mg/dL Chol/HDL Ratio 1.8 ratio [facility] Chol/HDL Interpretation See Note [facility] Comment: Lipid management should be guided by a p atient? s ASCVD risk, goals and preferences. ACC/AHA Guidelines recommend high intens ity statin if clinical ASCVD or LDL greater than or equal to 190 mg/dL. http://[email or web address]/IWI-NEU-Yxmynmgce Measure LDL if Total Cholesterol minus H DL Cholesterol is greater than 220 mg/dL. Adults aged 40-75 with LDL 70-189 mg/dL should have their 10 year ASCVD risk estimated with the ACC/AHA ASCVD risk es timator http://tools.acc.org/SXOFZ-Qfjg-Aazkidum r/ Statin should be discussed if risk great er than or equal to 7.5% in non-diabetics. With diabetes, moderate i ntensity statin is recommended if risk less than 7.5%, high intensity if risk g reater than or equal to 7.5%. Annual lipid monitoring on statins is no t necessary. Lifestyle modification is a critical com ponent of ASCVD risk reduction. Specimen Anatomical Collection Method Collection Time Receive d Time (Source) Location / / Volume Laterality Blood Venous Draw / 06/08/2022 10:44 06/08/2022 Unknown PM EDT 10:44 PM EDT Resulting Agency Comment Spec In Lab Aurea Cano APRN CHEMISTRY ORDERABLES Performing Organization Address City/State/[place] [address] (ABNORMAL) Hemoglobin A1c (06/08/2022 10:44 PM EDT) Analysis Performed At Patho logist Time Signature Hemoglobin A1C 5.8 (H) 4.3 - 5.6 [facility] Comment: Reference Range: 4.3 - 5.6% 5.7 - 6.4% - Increased Risk of Developin g Diabetes Mellitus >= 6.5% - Consistent with diagnosis of D iabetes Mellitus In the absence of hyperglycemia (i.e. pl asma glucose > 200 mg/dL) or classic symptoms of hyperglycemia a repeat measu rement of HbA1c should be performed on a separate sample to confirm the diagnos is. Diagnosis and Classification of Diabetes Mellitus, Diabetes Care 2013; 36: Suppl. 1, S67-74 Est Avg Gluc 119 mg/dL [facility]RISTEN DIAS [facility] Comment: eAG equivalents for HbA1c percentages: HbA1c(%) ?eAG(mg/dL) 6.0 ?126 6.5 ?140 7.0 ?154 7.5 ?169 8.0 ?183 8.5 ?197 9.0 ?212 9.5 ?226 10.0 ? 240 Limitations: The eAG calculation has not been validated on women, individuals below 18 years old and above 70 years old, and individuals with hemoglobinopathies. Additional resources are available on [facility] ADA website. Rolando WOLFF, Hadley J, Rober R, et al. ??Tr anslating the A1C assay into estimated average glucose values. ??Diabetes Care 2008:31(8):0724-4666. Specimen (Source) Anatomical Collection Method Collection Time Re ceived Time Location / / Volume Laterality Blood Venous Draw / 06/08/2022 10:44 06/09/2022 Unknown PM EDT Resulting Agency Comment Spec In Lab Aurea Cano COOPERER CHEMISTRY ORDERABLES Performing Organization Address City/State/[place] [address] Gold Tube HOLD (06/08/2022 10:34 PM EDT)Only the most recent of3 resultswithin the time period is included. P athologist Signature Gold Hold Sample in [facility] lab. [facility] Specimen Anatomical Collection Method Collection Time Receive d Time (Source) Location / / Volume Laterality Blood No Charge / 06/08/2022 10:34 06/08/2022 Unknown PM EDT 10:42 PM EDT Peter Campos MD CHEMISTRY ORDERABLES Performing Organization Address City/[facility]/ZIP Code Phon e Number [place] [phone] [facility] LAB[address]ORY Drive (ABNORMAL) Prealbumin (06/08/2022 10:34 PM EDT) P athologist Signature Prealbumin 11 (L) 20 - [facility] Comment: Prealbumin levels are generally lower in the pediatric population; adult concentrations are usually attained near puberty. Specimen Anatomical Collection Method Collection Time Receive d Time (Source) Location / / Volume Laterality Blood No Charge / 06/08/2022 10:34 06/08/2022 Unknown PM EDT 10:44 PM EDT Resulting Agency Comment Spec In Lab Shasta Louis APRN CHEMISTRY ORDERABLES Performing Organization Address [facility]/[place] [address] Film Library- Storage Only CT Head And Spine (06/08/2022 6:24 PM EDT) Specimen (Source) Anatomical Location Collection Method / Collectio n Time Received Time / Laterality Volume Narrative [facility] - 06/08/2022 6:24 PM EDT This exam is auto-finalizing. It's purpo se is for storage only. Melanie Parra MD [facility]M LIBRARY ORDERABLES Performing Organization Address [facility]/ZIP Code Phon e Number [place], [place] Film Library- Storage Only DX Chest (06/08/2022 6:23 PM EDT) Specimen (Source) Anatomical Location Collection Method / Collectio n Time Received Time / Laterality Volume Narrative RAD - 06/08/2022 6:23 PM EDT This exam is auto-finalizing. It's purpo se is for storage only. Melanie Parra MD [facility]M LIBRARY ORDERABLES Performing Organization Address City/[facility] Hospital/ZIP Code Phon e Number [place], [place] SCAN DOC: ALLERGY (05/31/2022 12:00 AM EDT) Narrative This result has an attachment that is no t available. Unknown MEDIA MGR SCAN EXT ORDR/RSLT (ABNORMAL) BLOOD GAS 2 VENOUS (05/11/2022 9:06 AM EDT) Analysis Performed At Patho logist Time Signature pH Gen 7.43 (H) 7.32 - [facility] 7.42 [facility] pCO2 Gen 37 (L) 41 - 51 [facility] LABORATORY pO2 Gen 57 (H) 25 - 40 [facility] LABORATORY HCO3 Gen 24.3 mmol/L [facility] BE Gen 0.0 mmol/L [facility] Hgb Blood Gas 13.5 (L) 13.7 - [facility] 16.5 g/dL [facility] O2HB Gen 90.6 % [facility] COHB Gen 0.4 % [facility] Comment: Nonsmokers: 0.5-1.5% COHB Smokers: Variable, but usually less than 10% Toxic: 20-30% COHB Lethal: Greater than 60% COHB METHB Gen 0.1 <=1.5 % [facility] Na Whole Blood 137 135 - 145 mmol/L [facility] K Whole Blood 3.9 3.5 - 5.0 mmol/L [facility] Comment: Please note: Patients with WBC >100,000 may have falsely elevated Potassium levels. Contact the Clinical Chemistry L aboratory if there are any questions. ICa Whole Blood 1.13 (L) 1.15 - 1.33 mmol/L [facility] Comment: Note: ??Total bilirubin higher than 20 m g/dL may lead to falsely low ionized calcium. CL Whole Blood 104 98 - 107 mmol/L [facility] Gluc Whole Bld 161 65 - 199 mg/dL [facility] Comment: Diabetes: >=200 mg/dL plus symp toms Lactate WB 2.7 (H) 0.5 - 2.2 mmol/L [facility] BGas Source Venous [facility] Specimen Anatomical Collection Method Collection Time Receive d Time (Source) Location / / Volume Laterality Blood 05/11/2022 9:06 AM 9:06 EDT AM EDT Belen Rice MD CHEMISTRY ORDERABLES Performing Organization Address City/State/[place] [address] (ABNORMAL) Comprehensive metabolic panel (non-fasting) (05/11/2022 4:50 AM EDT) Only the most recent of2 resultswithin the time period is included. athologist Signature Glucose Lvl 134 65 - 199 [facility] mg/dL [facility] Comment: Diabetes: >=200 mg/dL plus symp toms BUN 25 (H) 10 - 20 mg/dL [facility] Creatinine 0.86 0.80 - 1.50 mg/dL [facility] Sodium 139 135 - 145 mmol/L [facility] Potassium 4.6 3.5 - 5.0 mmol/L [facility] Comment: Please note: ??Patients with WBC >100,00 0 may have falsely elevated Potassium levels. ??For accurate Potassium quantif ication in these patients send serum separator tube (gold top) for subsequent determinations. ??Contact the Clinical Chemistry Laboratory if there are any qu estions. Chloride 103 98 - 107 mmol/L [facility] CO2 27 22 - 31 mmol/L [facility] Anion Gap 9 5 - 15 mmol/L [facility] Calcium 8.9 8.5 - 10.5 mg/dL [facility] Total Protein 6.7 6.1 - 8.0 g/dL [facility] Albumin 3.8 3.2 - 5.2 g/dL [facility] AST 35 0 - 39 unit/L [facility] ALT 47 0 - 55 unit/L [facility] Alk Phos 121 40 - 130 unit/L [facility] Total Bilirubin <0.2 (L) 0.2 - 1.3 mg/dL [facility] Estimated GFR 103 >=60 mL/min/1.73 m?? [facility] Comment: This patient's estimated GFR was calcula castro using the 2020 CKD-EPI equation. The estimated GFR can vary from the wilson ured GFR by up to 30% in the absence of rapidly changing kidney function. Assess ment of the estimated GFR is not appropriate when creatinine concentratio ns are rapidly changing. For clinical situations in which a more precise estim ate of GFR is necessary, consider alternative methods of GFR estimation molina ch as a 24-hour urine creatinine clearance. Assignment of CKD stage 1-5 for patients with an eGFR near the transition point between stages may be based on clinical assessment of muscle mass and symptoms in addition to eGFR. Specimen Anatomical Collection Method Collection Time Receive d Time (Source) Location / / Volume Laterality Blood 05/11/2022 4:50 AM 4:55 EDT AM EDT Resulting Agency Comment Spec In Lab Belen Rice MD CHEMISTRY ORDERABLES Performing Organization Address City/[facility]/ZIP Code Phon e Number [address] Morgan Tube Hold (05/10/2022 10:50 PM EDT) P athologist Signature Morgan Hold Sample in [facility] LABORATORY Specimen Anatomical Collection Method Collection Time Receive d Time (Source) Location / / Volume Laterality Blood No Charge / 05/10/2022 10:50 05/10/2022 Unknown PM EDT 10:59 PM EDT John La DO CHEMISTRY ORDERABLES Performing Organization Address City/[facility]/ZIP Code Phon e Number [address] Red Tube Hold (05/10/2022 10:50 PM EDT) P athologist Signature Red Hold Sample in [facility] LABORATORY Specimen Anatomical Collection Method Collection Time Receive d Time (Source) Location / / Volume Laterality Blood No Charge / 05/10/2022 10:50 05/10/2022 Unknown PM EDT 10:58 PM EDT John La DO CHEMISTRY ORDERABLES Performing Organization Address City/[facility]/ZIP Code Phon e Number [address] Blue Tube HOLD (05/10/2022 10:50 PM EDT) P athologist Signature Blue Hold Sample in [facility]. [facility] Specimen Anatomical Collection Method Collection Time Receive d Time (Source) Location / / Volume Laterality Blood No Charge / 05/10/2022 10:50 05/10/2022 Unknown PM EDT 10:58 PM EDT John R Nicolasn DO HEMATOLOGY ORDERABLES Performing Organization Address City/State/ZIP Code Phon e Number [address] Lavender Tube HOLD (05/10/2022 10:50 PM EDT) Patholo gist Method Time Signature Lavender Hold Sample in [facility]. [facility] Specimen Anatomical Collection Method Collection Time Receive d Time (Source) Location / / Volume Laterality Blood No Charge / 05/10/2022 10:50 05/10/2022 Unknown PM EDT 10:58 PM EDT John La DO HEMATOLOGY ORDERABLES Performing Organization Address City/State/ZIP Code Phon e Number [address] CT Rad Onc Chest Interp Only (05/10/2022 12:09 PM EDT) Anatomical Region Laterality Modality Chest Computed Tomography Specimen (Source) Anatomical Location Collection Method / Collectio n Time Received Time / Laterality Volume Impressions 05/11/2022 7:39 AM EDT 1. ??CT obtained for radiation therapy p sophia purposes. 2. ??Please see separate CT of the head and neck interpretation Thank you for letting us participate in the care of this patient. ??If you are a health care provider and have any questi ons regarding this report, please contact the number below. ??For patients who have questions please contact the health medicare biller that requested your imaging first. ? Electronically signed by: Bishop Cota DO, [facility] ([phone]), at 05/11/2022 7:39 AM Narrative 05/11/2022 7:39 AM EDT EXAMINATION: CT RAD ONC CHEST INTERP ONLY CLINICAL HISTORY: cT4N0 (Stage III-A) no n small cell lung cancer (adenocarcinoma), Pancoast tumor left up per lobe. Definitive chemoradiotherapy. TECHNIQUE: Limited CT without the use of oral but without the use of IV contrast enhancement, performed for the purposes of localization for radiation treatment. COMPARISON: Comparison is made to CT of the chest dated May 04, 2022. FINDINGS: Customer Service Associate Images: Noncontributory. Pulmonary parenchyma: As was noted on e recent prior CT of the chest, there is a large mass centered in the left upper lobe medially with invasion into the mediastinum and mass effect upon the eso phagus and trachea with rightward deviation of the structures. ??There is thickening of the esophagus adjacent to the tumor. ??There is paraseptal emphyse ma. ??Adjacent to the mass in the superior left upper lobe, is a region of groundgl ass opacity, unchanged. ??The mass also extends to the T1/T2 neuroforamina where there is soft tissue extension through the neural foramina. ??Evaluation of the spinal canal is limited. Airways: As detailed above. ??The centra l airways are patent. Pleura: There is no pleural effusion or pneumothorax. Lymph nodes: There are enlarged mediasti nal and bilateral hilar lymph nodes. For instance, a subcarinal lymph node me asures 25 x 14 mm. ??A right hilar lymph node measures 17 x 13 mm. ??A central le ft hilar lymph node measures 15 x 10 mm. Heart, pericardium, and great vessels: T here is moderate four-chamber cardiac enlargement, slightly asymmetrically aff ecting the left chambers. ??There is fusiform prominence of the ascending tho racic aorta measuring up to 41 mm. ??The main pulmonary artery is enlarged measur ing up to 33 mm. ??There are no intraluminal filling defects within the pulmonary arteries. ??There is degenerative pericardial fluid. Other mediastinal structures: As detaile d above. Lower neck: Please see separate CT of th e neck interpretation. Upper abdomen: Visualized structures wit hin the superior abdomen are within normal limits. Body wall soft tissues: Normal. Skeletal structures: There are no suspic ious osseous lesions. Procedure Note Bishop Cota, DO - 05/11/2022Formatti ng of this note might be different from the original. EXAMINATION: CT RAD ONC CHEST INTERP ONL Y CLINICAL HISTORY: cT4N0 (Stage III-A) no n small cell lung cancer (adenocarcinoma), Pancoast tumor left up per lobe. Definitive chemoradiotherapy. TECHNIQUE: Limited CT without the use of oral but without the use of IV contrast enhancement, performed for the purposes of localization for radiation treatment. COMPARISON: Comparison is made to CT of the chest dated May 04, 2022. FINDINGS: Customer Service Associate Images: Noncontributory. Pulmonary parenchyma: As was noted on e recent prior CT of the chest, there is a large mass centered in the left upper lobe medially with invasion into the mediastinum and mass effect upon the eso phagus and trachea with rightward deviation of the structures. There is th ickening of the esophagus adjacent to the tumor. There is paraseptal emphysema . Adjacent to the mass in the superior left upper lobe, is a region of groundgl ass opacity, unchanged. The mass also extends to the T1/T2 neuroforamina where there is soft tissue extension through the neural foramina. Evaluation of the s ricky canal is limited. Airways: As detailed above. The central airways are patent. Pleura: There is no pleural effusion or pneumothorax. Lymph nodes: There are enlarged mediasti nal and bilateral hilar lymph nodes. For instance, a subcarinal lymph node me asures 25 x 14 mm. A right hilar lymph node measures 17 x 13 mm. A central left hilar lymph node measures 15 x 10 mm. Heart, pericardium, and great vessels: T here is moderate four-chamber cardiac enlargement, slightly asymmetrically aff ecting the left chambers. There is fusiform prominence of the ascending tho racic aorta measuring up to 41 mm. The main pulmonary artery is enlarged measur ing up to 33 mm. There are no intraluminal filling defects within the pulmonary arteries. There is degenerative pericardial fluid. Other mediastinal structures: As detaile d above. Lower neck: Please see separate CT of th e neck interpretation. Upper abdomen: Visualized structures wit hin the superior abdomen are within normal limits. Body wall soft tissues: Normal. Skeletal structures: There are no suspic ious osseous lesions. IMPRESSION 1. CT obtained for radiation therapy janna nning purposes. 2. Please see separate CT of the head an d neck interpretation Thank you for letting us participate in the care of this patient. If you are a health care provider and have any questi ons regarding this report, please contact the number below. For patients w ho have questions please contact the health medicare biller that requested your imaging first. Richy Donald MD IMG OUTSIDE INTERPRETATION O RDERABLES Amphetamine, Urine Confirmation (05/09/2022 4:26 AM EDT)Only the most recent of2 resultswithin the time period is included. Component Value Ref Test Analysis Performed At [facility] Range Method Time Signature U Amphet CHRISTEN Conf Test ? Result ? Flag ??Unit ?? RefValue [facility] Amphetamines Confirmation, U H OSPITAL ??Amphetamine-by LC-MS/MS ?415 ?ng/mL ??Cutoff: 25 LABORATORY ??Phentermine-by LC-MS/MS ?Negative ? ng/mL ??Cutoff: 25 ??Methamphetamine-by LC-MS/ MS ?2544 ? ng/mL ??Cutoff: 25 ??Pseudoephedrine/Ephedrine -by LC-MS/MS ?Negative ? ng/mL ??Cutoff: 25 ??MDA (Ecstasy metabolite)- by LC-MS/MS ? Negative ? ng/mL ??Cutoff: 25 ??MDMA (Ecstasy)-by LC-MS/M S ? Negative ? ng/mL ??Cutoff: 25 ??Amphetamines Interpretation ?Positi ve. ? ADDITIONAL INFORMATION ------ ?This report is intended for use in clinical monitoring and ?management of patients. ??It is not intended for use i n ?employment-related testing. ?This test was developed and its performance characteri stics ?determined by [facility] in a manner consistent with CLIA ?requirements. This test has not been cleared or approv ed by ?the U.S. Food and Drug Administration. ?Test Performed by: ?[facility] ?[address] [place] [address] ?Machine Feeder: Harry Angel M.D. Ph.D.; CLIA# [id number] Specimen Anatomical Collection Method Collection Time Receive d Time (Source) Location / / Volume Laterality Urine Urine / Unknown 05/09/2022 4:26 AM 2021 9:06 EDT AM EDT Resulting Agency Comment Spec In Lab Jeff Bains MD URINE ORDERABLES Performing Organization Address City/State/[place] [address] (ABNORMAL) Rapid Drug Screen w/o Confirmation, Urine (05/09/2022 4:25 AM EDT) [facility] Method Time Signature U Barbiturates None None [facility] Screen Detected [facility] LABORATORY Comment: The barbiturate screen detects barbitura omid at concentrations >200 ng/mL. Note: Not all barbiturates cross-react equally with antibody used in this screen. A ? Presumptive Positive? result indicates that the screening result was positive but has not yet been confirmed by a highly-specific method. As with any screen, occasional false positive re sults from cross-reacting substances may occur. Not for Medico-Legal Purposes. U Benzodiazepines Screen None Detected None Detected [facility] Comment: The benzodiazepines screen detects benzo diazepines at concentrations >100 ng/mL. Not all benzodiazepines cross-sandra ct equally with antibody used in this screen. Due to the low dosage of clonaze tucker, false negatives may be obtained due to low concentration of clonazepam m etabolites. A ? Presumptive Positive? result indicates that the screening result was positive but has not yet been confirmed by a highly-specific method. As with any screen, occasional false positive re sults from cross-reacting substances may occur. Not for Medico-Legal Purposes. U Cocaine Screen None Detected None Detected [facility] Comment: The cocaine metabolites screen detects b enzoylecgonine (Cocaine Metabolite) at concentrations >150 ng/mL. A ? Presumptive Positive? result indicates that the screening result was positive but has not yet been confirmed by a highly-specific method. As with any screen, occasional false positive re sults from cross-reacting substances may occur. Not for Medico-Legal Purposes. U Methadone Metabolites None Detected None Detected [facility] LABORATORY Comment: The methadone metabolite screen detects EDDP (major methadone metabolite) at concentrations >100 ng/mL. A ? Presumptive Positive? result indicates that the screening result was positive but has not yet been confirmed by a highly-specific method. As with any screen, occasional false positive re sults from cross-reacting substances may occur. Not for Medico-Legal Purposes. U Opiate Screen None Detected None Detected [facility] Comment: The opiates screen detects opiates at co ncentrations >300 ng/mL. Please note that oxycodone, oxymorphone, fentanyl, tramadol, and other synthetic opioids are not detected by e opiate screen. A ? Presumptive Positive? result indicates that the screening result was positive but has not yet been confirmed by a highly-specific method. As with any screen, occasional false positive re sults from cross-reacting substances may occur. Not for Medico-Legal Purposes. U Cannabinoid Screen Presumptive Pos (A) None Detected [facility] Comment: The marijuana metabolites screen detects the THC metabolite (91-icw-7-carboxy-delta 9-THC) at concen trations >20 ng/mL. A ? Presumptive Positive? result indicates that the screening result was positive but has not yet been confirmed by a highly-specific method. As with any screen, occasional false positive re sults from cross-reacting substances may occur. Not for Medico-Legal Purposes. U Oxycodone Screen None Detected None Detected [facility] Comment: The oxycodone screen detects oxycodone a nd oxymorphone at concentrations >100 ng/mL. A ? Presumptive Positive? result indicates that the screening result was positive but has not yet been confirmed by a highly-specific method. As with any screen, occasional false positive re sults from cross-reacting substances may occur. Not for Medico-Legal Purposes. U Buprenorphine Screen Presumptive Pos (A) None Detected [facility] Comment: The buprenorphine screen detects bupreno rphine at concentrations >5 ng/mL. A ? Presumptive Positive? result indicates that the screening result was positive but has not yet been confirmed by a highly-specific method. As with any screen, occasional false positive re sults from cross-reacting substances may occur. Not for Medico-Legal Purposes. U Fentanyl Screen None Detected None Detected [facility] Comment: The fentanyl screen detects fentanyl at concentrations >2 ng/mL. A ? Presumptive Positive? result indicates that the screening result was positive but has not yet been confirmed by a highly-specific method. As with any screen, occasional false positive re sults from cross-reacting substances may occur. Not for Medico-Legal Purposes. U Tricyclics Screen None Detected None Detected [facility] Comment: The tricyclics screen detects tricyclic antidepressants at concentrations >150 ng/mL. Not all tricyclics cross-react eq ually with the antibody used in this screen. A ? Presumptive Positive? result indicates that the screening result was positive but has not yet been confirmed by a highly-specific method. As with any screen, occasional false positive re sults from cross-reacting substances may occur. Not for Medico-Legal Purposes. U Ethanol Screen None Detected None Detected [facility] Comment: This urine ethanol assay detect s ethanol at concentrations >/= 100 mg/L. U Amphetamines Screen Presumptive Pos (A) None Detected [facility] Comment: The amphetamine screen detects d-ampheta mine and d-methamphetamine at concentrations >300 ng/mL. A ? Presumptive Positive? result indicates that the screening result was positive but has not yet been confirmed by a highly-specific method. As with any screen, occasional false positive re sults from cross-reacting substances may occur. Not for Medico-Legal Purposes. U Adulterants Screen Suspected (A) None Detected [facility] Comment: An adulteration screen performed on this urine sample produced a result that is suspicious for adulteration or dilution. Urine dilution or adulteration can produce false negative or positive drug screen results. All urine samples submitted for urine drugs of abuse ronit sis are tested for creatinine concentration, pH, and for the presence of oxidants, nitrit es, and chromate. Specimen Anatomical Collection Method Collection Time Receive d Time (Source) Location / / Volume Laterality Urine 05/09/2022 4:25 AM 4:34 EDT AM EDT Resulting Agency Comment Spec In Lab Fifi Bishop MD CHEMISTRY ORDERABLES Performing Organization Address City/State/[place] [address] MRI Brachial Plexus w Contrast Left (05/07/2022 8:25 PM EDT) Anatomical Region Laterality Modality Neuro Plexus Left Magnetic Resonance Specimen (Source) Anatomical Location Collection Method / Collectio n Time Received Time / Laterality Volume Impressions 05/08/2022 9:32 AM EDT Large mesial left apical lung mass extending to the lower cervical and upper thoracic spine epidural space and left f oramina, surrounding the C8 and T1 nerve roots. Thank you for letting us participate in the care of this patient. ??If you are a health care provider and have any questi ons regarding this report, please contact the number below. ??For patients who have questions please contact the health medicare biller that requested your imaging first. ? 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 Abnormal marrow edema involves the C6, C7, T1, and T2 ve rtebral segments. The mass extends to the inferior border of the scalene trian gle, surrounds the C8 and T1 roots at the foramina. The brachial plexus at the lateral margin of the scalene triangle, and lateral to the scalene triangle is n ot involved. Costoclavicular and subpectoral spaces are normal. Procedure Note Darwin Braden MD - 05/08/2022Format ting of this note might be different from the original. 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 Abnormal marrow edema involves the C6, C7, T1, and T2 ve rtebral segments. The mass extends to the inferior border of the scalene trian gle, surrounds the C8 and T1 roots at the foramina. The brachial plexus at the lateral margin of the scalene triangle, and lateral to the scalene triangle is n ot involved. Costoclavicular and subpectoral spaces are normal. IMPRESSION Large mesial left apical lung mass exten ding to the lower cervical and upper thoracic spine epidural space and left f oramina, surrounding the C8 and T1 nerve roots. Thank you for letting us participate in the care of this patient. If you are a health care provider and have any questi ons regarding this report, please contact the number below. For patients w ho have questions please contact the health medicare biller that requested your imaging first. Electronically signed by: Darwin Braden MD, [facility] ([phone]), at 05/08/2022 9:32 AM Chema Alicea MD IMG MRI ORDERABLES UPPER EUS-ENDOSCOPIC ULTRASOUND (05/06/2022 9:33 AM EDT) Component Value Ref Test Analysis Performed At [facility] Range Method Time Signature UPPER [facility] ENDOSCOPIC Endoscopy ULTRASOUND _ Procedure Date: 05/06/2022 9:33 AM ? Patient Name: Carley Alford ? Date of : 1965 ? Age: 56 ? Order #: [id number] ? Instrument Name: [id number] ? Procedure: ? Upper EUS Indications: ? Abnormal CT of the GI tract Providers: ? Braulio Nascimento , ? Claudy Myers Referring MD: ?Chema Schneider: ? Propofol per Anesthesia Complications: ? No immediate complications. Procedure: ? Pre-Anesthesia Assessment: ? - Prior to the procedure, a History ? and Physical was performed , and ? patient medications and al lergies ? were reviewed. The patient is ? competent. The risks and b enefits ? of the procedure and the s edation ? options and risks were dis cussed ? with the patient. All ques tions ? were answered and informed consent ? was obtained. Patient ? identification and propose d ? procedure were verified by the ? physician in the pre-proce dure ? area. Mental Status Examin ation: ? alert and oriented. Airway ? Examination: normal oropha ryngeal ? airway and neck mobility. ? Respiratory Examination: c lear to ? auscultation. CV Examinati on: ? normal. Prophylactic Antib iotics: ? The patient does not requi re ? prophylactic antibiotics. Prior ? Anticoagulants: The patien t has ? taken no anticoagulant or ? antiplatelet agents. ASA G rade ? Assessment: III - A patien t with ? severe systemic disease. A fter ? reviewing the risks and be nefits, ? the patient was deemed in ? satisfactory condition to undergo ? the procedure. The anesthe geoff plan ? was to use monitored anest hesia ? care (MAC). Immediately pr ior to ? administration of medicati ons, the ? patient was re-assessed fo r ? adequacy to receive sedati ves. The ? heart rate, respiratory ra te, ? oxygen saturations, blood pressure, ? adequacy of pulmonary vent ilation, ? and response to care were monitored ? throughout the procedure. The ? physical status of the pat ient was ? re-assessed after the proc edure. ? The procedure, indications , ? benefits, risks and altern atives ? were explained to the jimmie ent. ? Specifically discussed wer e ? potential complications in cluding, ? but not limited to, cornell gracia, ? perforation, infection, mi ssing a ? cancer, and adverse medica tion ? reactions.The Endoscope wa s ? introduced through the michael th, and ? advanced to the second par t of ? duodenum The procedure, ? indications, benefits, ris ks and ? alternatives were explaine d to the ? patient. Specifically disc ussed ? were potential complicatio ns ? including, but not limited to, ? bleeding, perforation, inf ection, ? missing a cancer, and adve rse ? medication reactions.The p atient ? tolerated the procedure we ll. ? Findings: ? The examined esophagus was normal. ? Esophagogastric landmarks were identified: the Z-line ? was found at 45 cm and the gastroesophageal junction ? was found at 45 cm from the incisors. ? The entire examined stomach was normal. ? The examined duodenum was normal. ? ENDOSONOGRAPHIC FINDING: : ? Lung mass identified by EUS in cervical esophagus. ? There was abutment of the tumor on the cervical ? esophagus, with generally preserved muscularis except ? for a very focal area at 23 cm from the incisors ? where this definition was less clear. ? Moderate Sedation: ? Not applicable - See Anesthesia documentation Impression: ?- Normal esophagus. No evidence of ? significant extrinsic comp ression ? by endoscopic examination ? - Normal stomach. ? - Normal examined duodenum . ? - Lung mass abutting the c ervical ? esophagus with generally p reserved ? muscularis apart from a ve ry focal ? area at 23 cm where the fi ndings ? were indefinite for focal invasion. Recommendation: ?- [facility] patient to [facility] ? for ongoing care. ? - Resume previous diet. ? - Follow up with oncology ? Procedure Code(s): ? --- Professional --- ? 34408, Esophagogastroduode noscopy, ? flexible, transoral; with ? endoscopic ultrasound exam ination ? limited to the esophagus, stomach ? or duodenum, and adjacent structures Diagnosis Code(s): ? --- Professional --- ? R93.3, Abnormal findings o n ? diagnostic imaging of othe r parts ? of digestive tract ? K22.2, Esophageal obstruct ion ? --- Technical --- ? R93.3, Abnormal findings o n ? diagnostic imaging of othe r parts ? of digestive tract ? K22.2, Esophageal obstruct ion CPT copyright 2021 [employer]. All rights reserved. The codes documented in this report are preliminary and upon powder truck driver review may be revised to meet current compliance requirements. Attending Participation: ? I personally performed the entire procedure. ? Heladio Woods, 05/06/2022 10:33:41 AM Number of Addenda: 0 Note Initiated On: 05/06/2022 9:33 AM Specimen (Source) Anatomical Collection Method Collection Time Re ceived Time Location / / Volume Laterality 05/06/2022 9:33 AM EDT Chema Alicea MD GENERAL SURGICAL ORDERABLES Performing Organization Address City/State/ZIP Code Phon e Number [facility] CT Abdomen & Pelvis w Contrast (05/05/2022 11:27 AM EDT) Anatomical Region Laterality Modality Abdomen, Pelvis Computed Tomography Specimen (Source) Anatomical Collection Method Collection Time Re ceived Time Location / / Volume Laterality 05/05/2022 11:49 AM EDT Impressions 05/05/2022 1:45 PM EDT No metastatic disease identified in the abdomen and pelvis. Thank you for letting us participate in the care of this patient. ??If you are a health care provider and have any questi ons regarding this report, please contact the number below. ??For patients who have questions please contact the health medicare biller that requested your imaging first. ? Electronically signed by: Katlyn Pfeiffer MD, [facility] ([phone]), at 05/05/2022 1:45 PM Narrative 05/05/2022 1:45 PM EDT EXAMINATION: CT ABDOMEN AND PELVIS W CONTRAST CLINICAL HISTORY: Metastatic disease rico luation TECHNIQUE: Helical CT of the abdomen and pelvis was performed following the intravenous administration of contrast. Administered 88.0 ml of OMNIPAQUE 350.00 mg/ml. Oral contrast was administered. COMPARISON: 06/09/2014 FINDINGS: Lower chest: No basilar pleural or peric ardial effusion. Liver: Normal size with smooth contour. Normal attenuation with patent hepatic and portal veins. Low attenuation abutti ng the falciform ligament is consistent with focal fatty infiltration. Bile ducts: Nondilated. Gallbladder: No calcified gallstones. No rmal caliber wall. Pancreas: Normal attenuation without miriam no dilatation. Spleen: Normal. Adrenals: Normal. Kidneys: ??5 mm right upper pole low-att enuation lesion is too small to characterize however unchanged and favor ed to be a cyst. No left renal lesions. No hydronephrosis or urolithiasis. Urinary Bladder: Contains slightly hyper dense material that is likely excreted gadolinium related to the gadolinium enh anced brain MRI performed earlier the same day. No bladder wall thickening. Vasculature: There is moderate aortoilia c tortuosity. Lymph Nodes: No enlarged lymph nodes. Bowel: No dilated small or large bowel l oops or bowel wall thickening. Moderate volume of stool throughout the ascending and transverse colon. Descending colon and rectosigmoid are relatively decompre ssed. Peritoneum and mesentery: No ascites, fr ee air, or loculated fluid collection. No mesenteric inflammation. Abdominal wall: Small fat-containing umb ilical hernia. Reproductive organs: Within normal limit s. Osseous structures: Moderate hypertrophi c facet arthropathy. No suspicious lytic or sclerotic osseous lesion. Procedure Note Katlyn Pfeiffer MD - 05/05/2022Formatt ing of this note might be different from the original. EXAMINATION: CT ABDOMEN AND PELVIS W CON TRAST CLINICAL HISTORY: Metastatic disease rico luation TECHNIQUE: Helical CT of the abdomen and pelvis was performed following the intravenous administration of contrast. Administered 88.0 ml of OMNIPAQUE 350.00 mg/ml. Oral contrast was administered. COMPARISON: 06/09/2014 FINDINGS: Lower chest: No basilar pleural or peric ardial effusion. Liver: Normal size with smooth contour. Normal attenuation with patent hepatic and portal veins. Low attenuation abutti ng the falciform ligament is consistent with focal fatty infiltration. Bile ducts: Nondilated. Gallbladder: No calcified gallstones. No rmal caliber wall. Pancreas: Normal attenuation without miriam no dilatation. Spleen: Normal. Adrenals: Normal. Kidneys: 5 mm right upper pole low-atten uation lesion is too small to characterize however unchanged and favor ed to be a cyst. No left renal lesions. No hydronephrosis or urolithiasis. Urinary Bladder: Contains slightly hyper dense material that is likely excreted gadolinium related to the gadolinium enh anced brain MRI performed earlier the same day. No bladder wall thickening. Vasculature: There is moderate aortoilia c tortuosity. Lymph Nodes: No enlarged lymph nodes. Bowel: No dilated small or large bowel l oops or bowel wall thickening. Moderate volume of stool throughout the ascending and transverse colon. Descending colon and rectosigmoid are relatively decompre ssed. Peritoneum and mesentery: No ascites, fr ee air, or loculated fluid collection. No mesenteric inflammation. Abdominal wall: Small fat-containing umb ilical hernia. Reproductive organs: Within normal limit s. Osseous structures: Moderate hypertrophi c facet arthropathy. No suspicious lytic or sclerotic osseous lesion. IMPRESSION No metastatic disease identified in the abdomen and pelvis. Thank you for letting us participate in the care of this patient. If you are a health care provider and have any questi ons regarding this report, please contact the number below. For patients w ho have questions please contact the health medicare biller that requested your imaging first. Valerie Wiggins MD IMG CT ORDERABLES (ABNORMAL) CMP w/fasting Glucose (05/05/2022 7:20 AM EDT) P athologist Signature Glucose 116 (H) 65 - 99 CHRISTEN ARUN Fasting mg/dL [facility] Comment: ?Fasting* Glucose Interpretive C riteria Normal ?65-99 mg/dL Impaired Fasting glucose ?100-125 mg/dL Consistent with Diabetes Mellitus ? >or= 126 mg/dL *Fasting is defined as no caloric intake for at least 8 hours In the absence of unequivocal hypergly cemia a plasma glucose value of >or= 126 mg/dL should be repeated on a subseq uent day. Diagnosis and Classification of Diabetes Mellitus, Position Statement from the [employer]. ??Diabete s Care, Volume 33, Supplement 1, Oct 2009 BUN 19 10 - 20 mg/dL [facility] Creatinine 0.73 (L) 0.80 - 1.50 mg/dL [facility] Sodium 136 135 - 145 mmol/L [facility] Potassium 4.6 3.5 - 5.0 mmol/L [facility] Comment: Please note: ??Patients with WBC >100,00 0 may have falsely elevated Potassium levels. ??For accurate Potassium quantif ication in these patients send serum separator tube (gold top) for subsequent determinations. ??Contact the Clinical Chemistry Laboratory if there are any qu estions. Chloride 104 98 - 107 mmol/L [facility] CO2 23 22 - 31 mmol/L [facility] Anion Gap 9 5 - 15 mmol/L [facility] Calcium 8.8 8.5 - 10.5 mg/dL [facility] Total Protein 7.5 6.1 - 8.0 g/dL [facility] Albumin 3.9 3.2 - 5.2 g/dL [facility] AST 37 0 - 39 unit/L [facility] ALT 37 0 - 55 unit/L [facility] Alk Phos 79 40 - 130 unit/L [facility] Total Bilirubin 0.4 0.2 - 1.3 mg/dL [facility] Estimated GFR 108 >=60 mL/min/1.73 m?? [facility] Comment: This patient's estimated GFR was calcula castro using the 2020 CKD-EPI equation. The estimated GFR can vary from the wilson ured GFR by up to 30% in the absence of rapidly changing kidney function. Assess ment of the estimated GFR is not appropriate when creatinine concentratio ns are rapidly changing. For clinical situations in which a more precise estim ate of GFR is necessary, consider alternative methods of GFR estimation molina ch as a 24-hour urine creatinine clearance. Assignment of CKD stage 1-5 for patients with an eGFR near the transition point between stages may be based on clinical assessment of muscle mass and symptoms in addition to eGFR. Specimen Anatomical Collection Method Collection Time Receive d Time (Source) Location / / Volume Laterality Blood 05/05/2022 7:20 AM 2 7:40 EDT AM EDT Resulting Agency Comment Spec In Lab Valerie Wiggins MD CHEMISTRY ORDERABLES Performing Organization Address City/State/[place] [address] Lactate Dehydrogenase (05/05/2022 7:20 AM EDT) athologist Signature [facility] 214 110 - 220 [facility] unit/[facility] Specimen Anatomical Collection Method Collection Time Receive d Time (Source) Location / / Volume Laterality Blood 05/05/2022 7:20 AM 2 7:40 EDT AM EDT Resulting Agency Comment Spec In Lab Valerie Wiggins MD CHEMISTRY ORDERABLES Performing Organization Address City/State/ZIP [facility] [place] [place] [address] Chest w Contrast (05/04/2022 5:59 PM EDT) Anatomical Region Laterality Modality Chest Computed Tomography Specimen (Source) Anatomical Collection Method Collection Time Re ceived Time Location / / Volume Laterality 05/04/2022 6:19 PM EDT Impressions 05/04/2022 7:36 PM EDT 1. ??Unchanged size of left upper mediastinal mass/malignancy. This mass abuts the upper esophagus and there is absence of the fat plane between the mass and the esophagus. In addition there is abno rmal soft tissue projecting into the left T1-T2 neural foramen and also abutt ing the anterior T1 and T2 vertebral bodies, concerning for potential epidura l extension of tumor. MRI of the lower cervical and upper thoracic spine is rec ommended for further characterization. 2. ??Increased nonspecific ground glass opacity and compressive atelectasis surrounding the mass. 3. ??Paraseptal and centrilobular emphys neo. No pneumothorax or pleural effusions. Thank you for letting us participate in the care of this patient. ??If you are a health care provider and have any questi ons regarding this report, please contact the number below. ??For patients who have questions please contact the health medicare biller that requested your imaging first. ? Electronically signed by: Jose Juan soto MD, [facility] ([phone]), at 05/04/2022 7:36 PM Narrative 05/04/2022 7:36 PM EDT EXAMINATION: CT CHEST W CONTRAST CLINICAL HISTORY: Dysphagia, unexplained ; Dysphagia, L axillary pain, known history of ALBERTO mass and recent bx TECHNIQUE: 3.75 mm thick axial contiguou s sections were obtained through the chest via helical acquisition after the intravenous administration of contrast, Administered 60.0 ml of OMNIPAQUE 350.00 mg/ml. Thin-section reconstructions as well as coronal and sagittal reformatted images were generated. COMPARISON: Chest radiograph 05/04/2022. CT chest 03/23/2022 FINDINGS: Pulmonary parenchyma: There are centrilo bular and paraseptal emphysema. No new focal consolidation to suggest pneumonia . There is soft tissue mass along the left upper medial mediastinum which wilson ures approximately 5.6 x 4.8 x 6.6 cm in size (axial series 3 image 18, coronal s eries 6 image 49). This mass is similar in size to the CT of 03/23/2022, and appe ars to encase the proximal left subclavian artery, abuts the proximal le ft common carotid artery and also appears to abut the trachea and esophagu s with minimal fat plane present. This mass may encroach the left T1-T2 neural foramen (axial series 3 image 11, sagittal series 7 image 65). This mass a ppears to abut the anterior T1 and T2 vertebral bodies. No discrete osseous le misael is identified. There is however increased ground glass attenuation along the superior lateral aspect of the mass (axial series 3 image 21) with increased compressive bronchiectasis. Unchanged small, sub-5 mm pulmonary nodules in the right lung apex (axial series 4 image 49 and 53). Airways: The large airways are patent. I ncreased medial left upper lobe compressive bronchiectasis. Pleura: No pneumothorax. No pleural effu sions. Lymph nodes: Unchanged small mediastinal lymph nodes. Heart, pericardium, and great vessels: N ormal cardiac size. No pericardial effusion. Normal caliber of the thoracic aorta with widely patent arch origins. No aortic dissection. No central or segm ental pulmonary emboli. Other mediastinal structures: No signifi cant findings. Lower neck: No significant findings. Upper abdomen: No significant findings. Body wall soft tissues: No significant f indings. Skeletal structures: Partially visualize d disc degenerative changes at C6-C7. Abnormal soft tissue density within the left T1-T2 neural foramen (sagittal series 7 image 65). Procedure Note Jose Juan Singh MD - 05/04/2022Fo rmatting of this note might be different from the original. EXAMINATION: CT CHEST W CONTRAST CLINICAL HISTORY: Dysphagia, unexplained ; Dysphagia, L axillary pain, known history of ALBERTO mass and recent bx TECHNIQUE: 3.75 mm thick axial contiguou s sections were obtained through the chest via helical acquisition after the intravenous administration of contrast, Administered 60.0 ml of OMNIPAQUE 350.00 mg/ml. Thin-section reconstructions as well as coronal and sagittal reformatted images were generated. COMPARISON: Chest radiograph 05/04/2022. CT chest 03/23/2022 FINDINGS: Pulmonary parenchyma: There are centrilo bular and paraseptal emphysema. No new focal consolidation to suggest pneumonia . There is soft tissue mass along the left upper medial mediastinum which wilson ures approximately 5.6 x 4.8 x 6.6 cm in size (axial series 3 image 18, coronal s eries 6 image 49). This mass is similar in size to the CT of 03/23/2022, and appe ars to encase the proximal left subclavian artery, abuts the proximal le ft common carotid artery and also appears to abut the trachea and esophagu s with minimal fat plane present. This mass may encroach the left T1-T2 neural foramen (axial series 3 image 11, sagittal series 7 image 65). This mass a ppears to abut the anterior T1 and T2 vertebral bodies. No discrete osseous le misael is identified. There is however increased ground glass attenuation along the superior lateral aspect of the mass (axial series 3 image 21) with increased compressive bronchiectasis. Unchanged small, sub-5 mm pulmonary nodules in the right lung apex (axial series 4 image 49 and 53). Airways: The large airways are patent. I ncreased medial left upper lobe compressive bronchiectasis. Pleura: No pneumothorax. No pleural effu sions. Lymph nodes: Unchanged small mediastinal lymph nodes. Heart, pericardium, and great vessels: N ormal cardiac size. No pericardial effusion. Normal caliber of the thoracic aorta with widely patent arch origins. No aortic dissection. No central or segm ental pulmonary emboli. Other mediastinal structures: No signifi cant findings. Lower neck: No significant findings. Upper abdomen: No significant findings. Body wall soft tissues: No significant f indings. Skeletal structures: Partially visualize d disc degenerative changes at C6-C7. Abnormal soft tissue density within the left T1-T2 neural foramen (sagittal series 7 image 65). IMPRESSION 1. Unchanged size of left upper mediasti nal mass/malignancy. This mass abuts the upper esophagus and there is absence of the fat plane between the mass and the esophagus. In addition there is abno rmal soft tissue projecting into the left T1-T2 neural foramen and also abutt ing the anterior T1 and T2 vertebral bodies, concerning for potential epidura l extension of tumor. MRI of the lower cervical and upper thoracic spine is rec ommended for further characterization. 2. Increased nonspecific ground glass op acity and compressive atelectasis surrounding the mass. 3. Paraseptal and centrilobular emphysem a. No pneumothorax or pleural effusions. Thank you for letting us participate in the care of this patient. If you are a health care provider and have any questi ons regarding this report, please contact the number below. For patients w ho have questions please contact the health medicare biller that requested your imaging first. Electronically signed by: Jose Juan soto MD, [facility] ([phone]), at 05/04/2022 7:36 PM Mulugeta Freedman MD IMG CT ORDERABLES XR Chest PA & Lateral (Generic) (05/04/2022 3:38 PM EDT) Anatomical Region Laterality Modality Chest N/A Digital Radiography Specimen (Source) Anatomical Location Collection Method / Collectio n Time Received Time / Laterality Volume Impressions 05/04/2022 3:59 PM EDT 1. ??Stable left upper lobe paramediasti nal mass. 2. ??No superimposed acute cardiopulmona ry process. Thank you for letting us participate in the care of this patient. ??If you are a health care provider and have any questi ons regarding this report, please contact the number below. ??For patients who have questions please contact the health medicare biller that requested your imaging first. ? Electronically signed by: Bishop Cota DO, [facility] ([phone]), at 05/04/2022 3:59 PM Narrative 05/04/2022 3:59 PM EDT EXAMINATION: XR CHEST PA AND LATERAL (GENERIC) CLINICAL HISTORY: left sided chest pain TECHNIQUE: PA and lateral views of the c hest COMPARISON: Correlation is made to CT of the chest dated March 23, 2022. Comparison is made to multiple prior [facility] radiograph examinations, the most recent which is dated April 29, 2022. FINDINGS: There is persistent focal pleural thicke remedios along the left paramedial stripe at the left lung apex measuring approximate ly 4.1 x 6.6 cm, corresponding to the known left upper lobe mass lesion as see n on prior CT. ??There is a stable dominant bleb at the left lung apex. ??T here are other emphysematous changes and blebs at the bilateral lung apices assoc iated with coarsening of the pulmonary parenchymal markings. ??There is no new focal pulmonary opacity elsewhere. ??There is no pleural effusion or pneumothorax. The trachea is midline. ??Hilar structur es are within normal limits. The cardiomediastinal contours are uncha nged and within normal limits. Visualized structures within the superio r abdomen and inferior neck are within normal limits. Osseous structures are unchanged. Procedure Note Bishop Cota DO - 05/04/2022Formatti ng of this note might be different from the original. EXAMINATION: XR CHEST PA AND LATERAL (Generaytor) CLINICAL HISTORY: left sided chest pain TECHNIQUE: PA and lateral views of the c hest COMPARISON: Correlation is made to CT of the chest dated March 23, 2022. Comparison is made to multiple prior [facility] radiograph examinations, the most recent which is dated April 29, 2022. FINDINGS: There is persistent focal pleural thicke remedios along the left paramedial stripe at the left lung apex measuring approximate ly 4.1 x 6.6 cm, corresponding to the known left upper lobe mass lesion as see n on prior CT. There is a stable dominant bleb at the left lung apex. The re are other emphysematous changes and blebs at the bilateral lung apices assoc iated with coarsening of the pulmonary parenchymal markings. There is no new fo tea pulmonary opacity elsewhere. There is no pleural effusion or pneumothorax. The trachea is midline. Hilar structures are within normal limits. The cardiomediastinal contours are uncha nged and within normal limits. Visualized structures within the superio r abdomen and inferior neck are within normal limits. Osseous structures are unchanged. IMPRESSION 1. Stable left upper lobe paramediastina l mass. 2. No superimposed acute cardiopulmonary process. Thank you for letting us participate in the care of this patient. If you are a health care provider and have any questi ons regarding this report, please contact the number below. For patients w ho have questions please contact the health medicare biller that requested your imaging first. Electronically signed by: Bishop Cota DO, [facility] ([phone]), at 05/04/2022 3:59 PM Maribell Mike MD IMG DX ORDERABLES Solid Tumor NGS Panel (04/29/2022 12:41 PM EDT) Specimen Anatomical Collection Method Collection Time Receive d Time (Source) Location / / Volume Laterality Tissue 04/29/2022 12:41 05/05/2022 8:54 PM EDT AM EDT Resulting Agency Comment Spec In Lab Antonio Jeronimo MD PATHOLOGY/CYTOLOGY ORDERABLE S Performing Organization Address City/State/[place] [address] from Last 3 Months Insurance Payer Benefit Plan / Subscriber ID Effective Dates Phone Addre ss Type Group AARP MANAGED AARP HMO [id number] 2021-Marely [phone] [address] [address] MEDICARE MANAGED [address] [place], [place] [id number] Advance Directives Documents on File Type Date Recorded Patient Dental Hygienist Mobile Coordinator Explanati on Advance Directives and 05/05/2022 3:59 PM [place] Living Will Latest Code Status on File Code Status Date Activated Date Inactivated Comments Attempt Cardiopulmonary Resuscitation - 06/08/2022 11:12 PM 022 7:42 PM Inpatient Code Status decision made by: Two - Attending Decision Attempt Cardiopulmonary Resuscitation - 05/05/2022 5:46 AM 022 12:58 PM Inpatient Code Status decision made by: Patient Care Teams Wet Pan Mixer Relationship Specialty Start Date End Date Willam Waite MD PCP - General 03/24/22 6 [place] [id number]
--- OUTSIDE RECORDS SUMMARY | 2022-07-12 08:54 | XMS_ITS | Encounter Summary ---
:1965 Author Organization [facility] [place] [address] Care Team Providers Name Role Phone Willam Waite MD Primary Care Provider Encounter Details Date Type Department Care Team Description 06/08/2022 Ancillary Procedure Radiology Library [place] [address] [place] [address] [phone] Social History Tobacco Use Types Packs/Day Years [...] place to sleep or slept in a mcc (including now)? Sex Assigned at Date Recorded Male 05/04/2022 4:12 PM EDT documented as of this encounter Plan of Treatment Upcoming Encounters Date Type Specialty Care Team Description 07/14/2022 TH Visit (TeleHealth) Palliative Care Kian Zelaya STOCKROOM ATTENDANT [facility] ER PALLIATIVE MEDIC [place], [place] [address] (Wo rk) 07/22/2022 TH Visit (TeleHealth) Palliative Care Benoit Lei STOCKROOM ATTENDANT [facility] [place] [address] Criselda Zelaya STOCKROOM ATTENDANT [facility] [place] [address] 08/12/2022 Office Visit Cardiology Hari Summers [place] [address] Kit Bonilla MD [facility] [place] [address] documented as of this encounter Procedures Procedure Name Priority Date/Time Associated Diagnosis Comme nts FILM LIBRARY Routine 06/08/2022 6:24 PM Results f or this STORAGE ONLY CT EDT procedure ar e in HEAD AND SPINE the results section. documented in this encounter Results Film Library- Storage Only CT Head And Spine (06/08/2022 6:24 PM EDT) Specimen (Source) Anatomical Location Collection Method / Collectio n Time Received Time / Laterality Volume Narrative NUHA - 06/08/2022 6:24 PM EDT This exam is auto-finalizing. It's purpo se is for storage only. Elizabeth Parra MD IMG FILM LIBRARY ORDERABLES Performing Organization Address City/State/ZIP Code Phon e Number [place], [place] documented in this encounter Visit Diagnoses Not on filedocumented in this encounter Care Teams Insurance Verification Representative Relationship Specialty Start Date End Date Willam Waite MD PCP - General 03/24/22 [address] [place] [address] documented as of this encounter
--- OUTSIDE RECORDS SUMMARY | 2022-07-12 08:54 | XMS_ITS | Encounter Summary ---
:1965 Author Organization [place] [address] Care Team Providers Name Role Phone Willam Waite MD Primary Care Provider Encounter Details Date Type Department Care Team Description 06/21/2022 Orders Only Neurology at [facility] John La, [facility] D [facility] [place] [address] NEUROLOGY DEPT [phone] [place], [place] [address] (Wo rk) Social History Tobacco [...] TH Visit (TeleHealth) Palliative Care Kian Zelaya COMMERCIAL COLLECTOR [facility] ER PALLIATIVE MEDIC [place], [place] [address] (Wo rk) 07/22/2022 TH Visit (TeleHealth) Palliative Care Benoit Lei COMMERCIAL COLLECTOR [facility] [place] [address] Criselda Zelaya COMMERCIAL COLLECTOR [facility] [place] [address] 08/12/2022 Office Visit Cardiology Hari Summers MD [facility] [place] [address] Kit Bonilla MD [facility] [place] [address] documented as of this encounter Procedures Procedure Name Priority Date/Time Associated Diagnosis Comme nts BLUE TUBE HOLD Routine 05/10/2022 10:50 PM Result s for this EDT procedure are i n the results section . documented in this encounter Results Blue Tube HOLD (05/10/2022 10:50 PM EDT) athologist Signature Blue Hold Sample in [facility]. [facility] Specimen Anatomical Collection Method Collection Time Receive d Time (Source) Location / / Volume Laterality Blood No Charge / 05/10/2022 10:50 05/10/2022 Unknown PM EDT 10:58 PM EDT John La DO HEMATOLOGY ORDERABLES Performing Organization Address City/State/[place] [address] documented in this encounter Visit Diagnoses Not on filedocumented in this encounter Care Teams Spring Repairer Helper Hand Relationship Specialty Start Date End Date Willam Waite MD PCP - General 03/24/22 6 [place] [address] documented as of this encounter
--- OUTSIDE RECORDS SUMMARY | 2022-07-12 08:54 | XMS_ITS | Encounter Summary ---
:1965 Author Organization [facility] [place] [address] Care Team Providers Name Role Phone Willam Waite MD Primary Care Provider Encounter Details Date Type Department Care Team Description 06/29/2022 [facility] [place] [phone] Social History Tobacco Use Types Packs/Day [...] place to sleep or slept in a long-term (including now)? Sex Assigned at Date Recorded Male 05/04/2022 4:12 PM EDT documented as of this encounter Miscellaneous Notes Telephone Encounter - Rebecca James RN - 06/29/2022 8:22 AM EDT Telephone call from patient who reports that he is home from hospital and is feeling better. He states that Dr. Donald stopped in to see him while he was in the hospital and said that since he hasn't had xrt in so long that he should start some pill . He doesn't think that he has whatever it is andwould like to know what he should be doing. I let him know that I will update Dr. Donald and seek how he is to proceed. documented in this encounter Plan of Treatment Upcoming Encounters Date Type Specialty Care Team Description 07/14/2022 TH Visit (TeleHealth) Palliative Care Kian Zelaya APRN [facility] PALLIATIVE MEDIC [place], [place] [address] (Wo rk) 07/22/2022 TH Visit (TeleHealth) Palliative Care Benoit Lei APRN [facility] [place] [address] Criselda Zelaya APRN [facility] [place] [address] 08/12/2022 Office Visit Cardiology Hari Summers MD [facility] [place] [address] Kit Bonilla MD [facility] [place] [address] documented as of this encounter Visit Diagnoses Not on filedocumented in this encounter Care Teams Registered Public Surveyor Relationship Specialty Start Date End Date Willam Waite MD PCP - General 03/24/22 6 [place] [phone] documented as of this encounter
--- OUTSIDE RECORDS SUMMARY | 2022-07-12 08:54 | XMS_ITS | Encounter Summary ---
:1965 Author Organization [facility] [place] [address] Care Team Providers Name Role Phone Willam Waite MD Primary Care Provider Reason for Visit Reason Onset Date Comments Medication Refill 06/06/2022 Didn't refill Rx yes terday, in the ED today. Encounter Details Date Type Department Care Team Description 06/06/2022 Telephone Pallative Medicine Kinsey Lucas, Medication Refill [facility] RISK MANAGEMENT PROFESSIONAL (Didn't refill Rx Drive [facility] yesterday, [place] [address] [address] [address] today[address] ) [phone] PALLIATIVE MEDIC [place]E [place], [place] [address] (Wo rk) Social History Tobacco [...] encounter Miscellaneous Notes Telephone Encounter - Kinsey Lucas APRN - 06/06/2022 3:00 PM EDT On-call page received from in [facility] for Iban. He presented today with hemoptysis, SOB, and distraught emotional state and sobbing, and a workup was completed. Our team was called in regards to his pain management and possible interventions while in the ED, knowing he has a pain contract and is actively receiving pain management with Criselda Zelaya APRN. Iban (nor his Ines) picked up his medications yesterday (due to cost concerns) after coordination from our team to change his Subutex to [facility] since his primary pharmacy, [address], is closed over the weekend. Ines confirmed Iban was home all weekend, with concerns of erratic behavior, and no known access to illicit medication. PDMP continues to be clear. He has been out of Subutex since Tuesday. After discussing the case with , and a negative workup in the ED, we suspect he maybegoing through withdrawals. He was given hydromorphone IV in the ED. is coordinating for Iban to receive his Subutex in the ED before discharge, with the plan to have Iban's , Ines, to pickle cutter his prescriptions tomorrow as planned at [facility], and then follow-up with Criselda Zelaya APRN, on Tuesday as planned. Our team recommended against prescribing or sending home any additionalopioid medications at this time. I confirmed with the [facility] pharmacist, Angel, that nothing has been picked up, and that they can re-file the insurance claim to allow coverage for the Subutex after the [facility] Rx and claim has been reversed Tuesday. I have sent a message to the Team nurse to call the [facility] pharmacy thing Tuesday to confirm the Rx were discontinued per 06/05 voicemail I left, and then let Angel know ([phone]) so he cansubmit the claim and allow Iban's medications to be picked up without paying the [place]. See 06/05 Telephone encounter for yesterdays details. CC Criselda Zelaya APRN; Carlos Nunez DO documented in this encounter Plan of Treatment Upcoming Encounters Date Type Specialty Care Team Description 07/14/2022 Visit (TeleHealth) Palliative Care Kian Zelaya APRN [facility] ER PALLIATIVE MEDIC ALYSSA [place], [place] [address] (Wo rk) 07/22/2022 Visit (TeleHealth) Palliative Care Benoit Lei APRN [facility] [place] [address] Criselda Zelaya APRN [facility] [place] [address] 08/12/2022 Office Visit Cardiology Hari Summers MD [facility] [place] [address] Kit Bonilla MD [facility] [place] [address] documented as of this encounter Visit Diagnoses Not on filedocumented in this encounter Care Teams Gear Coding Machine Operator Relationship Specialty Start Date End Date Willam Waite MD PCP - General 03/24/22 6 [place] [address] documented as of this encounter
--- OUTSIDE RECORDS SUMMARY | 2022-07-12 08:54 | XMS_ITS | Encounter Summary ---
:1965 Author Organization [facility] [place] [address] Care Team Providers Name Role Phone Willam Waite MD Primary Care Provider Reason for Visit Reason Comments Chemotherapy Cycle 1, Day 15 Taxol + Carb o Auth/Cert Specialty Diagnoses / Procedures Referred By Contact Refer red To Contact Diagnoses Acute encephalopathy Cerebrovascular accident (CVA), unspecified mechanism stroke Elizabeth Parra MD [facility] Procedures EMERGENCY I[facility] [place] [address] Referral ID Status Reason Start Date Expiration Date Visits Requ ested Visits Authorized [id number] 1 1 Encounter Details Date Type Department Care Team Description 06/07/2022 Infusion Hematology Oncology at [facility] malignant neoplasm [facility] of bronchus of left [address] [place], [place] [phone] Social History Tobacco Use Types Packs/Day [...] place to sleep or slept in a residential (including now)? Sex Assigned at Date Recorded Male 05/04/2022 4:12 PM EDT documented as of this encounter Progress Notes Carla Berger RN - 06/07/2022 10:00 AM EDT INFUSION THERAPY ADMINISTRATION NOTES DIAGNOSIS: NSCLC CYCLE #: 1 Day 15 REASON FOR VISIT: Paclitaxel & Carboplatin chemotherapy SUBJECTIVE Mr. Palomares is here for C1D15 chemotherapy being given concurrently with radiation therapy. He saw provider prior to his infusion appt. He is tolerating therapy, has no questions/concerns and is ready for treatment today. OBJECTIVE LAB DATA: Labs drawn today at [facility]. Reviewed and found adequate for treatment today. Wbc 3.29, hgb 12.8, plts 211, anc 2.5 Creatinine 0.8 AST 31, ALT 72, T Bili 0.1 Pre administration: Chemotherapy orders independently verified for drug name, route, and dosage per patient's height, weight and BSA by Carla Louis RN and pharmacist on-site. REACTIONS (DESCRIPTION, TIME, INTERVENTION AND EFFECTIVENESS) none ASSESSMENT Mr. Palomares was somnolent throughout chemotherapy today but easily arousable. He tolerated treatment without issues. Ines was called at end of treatment prior to Iban going for radiation. Called and left a voicemail. PLAN Return to clinic daily for XRT and in one week for consideration of C1D22. Patient was reminded to call in the interim with any questions/concerns. documented in this encounter Plan of Treatment Upcoming Encounters Date Type Specialty Care Team Description 07/14/2022 TH Visit (TeleHealth) Palliative Care Kian Zelaya [facility] PALLIATIVE MEDIC [place], [place] [address] (Wo rk) 07/22/2022 TH Visit (TeleHealth) Palliative Care Benoit Lei [facility] [place] [address] Criselda Zelaya [facility] [place] [address] 08/12/2022 Office Visit Cardiology Hari Summers MD [facility] [place] [address] Kit Bonilla MD [facility] [place] [address] documented as of this encounter Visit Diagnoses Diagnosis 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 Malignant neoplasm of upper lobe, bronch us or lung documented in this encounter Administered Medications Inactive Administered Medications - up to 3 most recent administrations Medication Order MAR Action Action Date Dose Rate Site CARBOplatin (Paraplatin) 300 New Bag 06/07/2022 1:57 PM EDT 300 mg 560 mL/hr mg in dextrose 5% 280 mL infusion 300 mg (Target AUC = 2), Intravenous, ONCE, 1 dose, On Tue06/07/22 at 1300, Administer over 30 Minutes, Warning Vesicant/Irritant Medication dexAMETHasone (Decadron) tablet 10 mg Given 06/07/2022 11:46 AM EDT 10 mg 10 mg, Oral, ONCE, 1 dose, On Tue06/07/22 at 1200, Administer 30 minutes prior to PACLitaxel., Routine diphenhydrAMINE (Benadryl) capsule 50 mg Given 06/07/2022 11:47 AM EDT 50 mg 50 mg, Oral, ONCE, 1 dose, On Tue06/07/22 at 1200, Administer 30 minutes prior to PACLitaxel., Routine famotidine (Pepcid) (10 mg/mL) injection 20 Given 06/07/2022 11:47 AM EDT 20 mg mg 20 mg, Intravenous, ONCE, 1 dose, On Tue06/07/22 at 1200, Administer 30 minutes prior to PACLitaxel. PACLitaxeL (Taxol) 102 mg in New Bag 06/07/2022 12:37 PM EDT 102 m g 267 mL/hr sodium chloride 0.9% Non-PVC 267 mL infusion 102 mg (rounded from 101.5 mg = 50 mg/m2/dose ? 2.03 m2 Treatment Plan BSA from Recorded weight), Intravenous, ONCE, 1 dose, On Tue06/07/22 at 1300, Administer over 60 Minutes, Warning Vesicant/Irritant Medication palonosetron (Aloxi) (0.05 mg/mL) injection Given 05/24 11:49 AM EDT 0.25 mg 0.25 mg 0.25 mg, Intravenous, ONCE, 1 dose, On Tue06/07/22 at 1200, Administer over 30 seconds., Routine documented in this encounter Care Teams Hydraulic Pile Hammer Operator Relationship Specialty Start Date End Date Willam Waite MD PCP - General 03/24/2203 [address] [place] [phone] documented as of this encounter
--- OUTSIDE RECORDS SUMMARY | 2022-07-12 08:54 | XMS_ITS | Encounter Summary ---
:1965 Author Organization [place] [address] Care Team Providers Name Role Phone Willam Waite MD Primary Care Provider Encounter Details Date Type Department Care Team Description 06/29/2022 Telephone Radiation Oncology [place] [facility] Richy Donald MD [facility] [place] [address] RADIATION ONCOLOGY [phone] [place], [place] [address] (Wo rk) Social History Tobacco [...] place to sleep or slept in a fci (including now)? Sex Assigned at Date Recorded Male 05/04/2022 4:12 PM EDT documented as of this encounter Miscellaneous Notes Telephone Encounter - Richy Donald MD - 06/29/2022 2:05 PM EDT I spoke with Mr. Palomares's regarding re-initiation of oncologic therapies, as he was sleeping. As his performance status appeared to be reasonable when I saw him last week, and he was cognitively intact, we were going to review the options of re-initiation of chemoradiotherapy versus a more palliative approach with systemic therapy potentially followed by radiotherapy. However, she states that although over the first few days at home he appeared to be close to his baseline, over the past twenty four hours he has exhibited significant cognitively decline, re-exhibiting profound confusion today (e.g. unable to follow basic commands, confusion as to how to perform basic tasks); he has also been feeling chilled, and has been sleeping much of the day. No etiology of his AMS was determined while hospitalized, and he appeared to have improved at discharge. Given our discussion aggressive chemoradiotherapy makes less sense given concerns about his performance status, and it was recommended that re-e valuation at the [facility] [place] would be appropriate given his rapid functional and cognitive decline today. She was in agreement. documented in this encounter Plan of Treatment Upcoming Encounters Date Type Specialty Care Team Description 07/14/2022 TH Visit (TeleHealth) Palliative Care Kian Zelaya [facility] ER PALLIATIVE MEDIC ALYSSA [place], [place] [address] (Wo rk) 07/22/2022 TH Visit (TeleHealth) Palliative Care Benoit Lei [facility] [place] [address] Criselda Zelaya [facility] [place] [address] 08/12/2022 Office Visit Cardiology Hari Summers MD [place] [address] Kit Bonilla MD [facility] [place] [address] documented as of this encounter Visit Diagnoses Not on filedocumented in this encounter Care Teams Community Organization Worker Relationship Specialty Start Date End Date Willam Waite MD PCP - General 03/24/22 6 [place] [address] documented as of this encounter
--- OUTSIDE RECORDS SUMMARY | 2022-07-12 08:54 | XMS_ITS | Encounter Summary ---
:1965 Author Organization [facility] [place] [address] Care Team Providers Name Role Phone Willam Waite MD Primary Care Provider Encounter Details Date Type Department Care Team Description 06/08/2022 Telephone Palliative Medicine at [facility] Elizabeth Whitmore, [place] [address] Social History Tobacco Use Types Packs/Day [...] place to sleep or slept in a detention (including now)? Sex Assigned at Date Recorded Male 05/04/2022 4:12 PM EDT documented as of this encounter Miscellaneous Notes Telephone Encounter - Elizabeth Whitmore RN - 06/08/2022 10:29 AM EDT RN call to [facility] lab to confirm UDS and opioid confirmatory test obtained yesterday 06/07/2022. Kendy in the lab was able to confirm both UDS and confirmatory were obtained. UDS is resulted and confirmatory should be back early next week. Provider notified. No additional follow up needed at this time. documented in this encounter Plan of Treatment Upcoming Encounters Date Type Specialty Care Team Description 07/14/2022 TH Visit (TeleHealth) Palliative Care Kian Zelaya [employer] INTERN [facility] ER PALLIATIVE MEDIC [place], [place] [address] (Wo rk) 07/22/2022 TH Visit (TeleHealth) Palliative Care Benoit Lei [facility] [address] Criselda Zelaya [employer] INTERN [facility] [place] [address] 08/12/2022 Office Visit Cardiology Hari Summers MD [facility] [place] [place] [address] Kit Bonilla MD [facility] [address] documented as of this encounter Visit Diagnoses Not on filedocumented in this encounter Care Teams Wildlife Conservation Officer Relationship Specialty Start Date End Date Willam Waite MD PCP - General 03/24/22 6 [place] [address] documented as of this encounter
--- OUTSIDE RECORDS SUMMARY | 2022-07-12 08:54 | XMS_ITS | Encounter Summary ---
:1965 Author Organization [facility] [place] [place] [address] Care Team Providers Name Role Phone Willam Waite MD Primary Care Provider Reason for Visit Reason Onset Date Comments Medication Refill 06/05/2022 Encounter Details Date Type Department Care Team Description 06/05/2022 Refill Pallative Medicine Abdelrahman Nunez, Neoplasm related pain; One [place] DO Substance use disorder Drive [facility] [address] PALLIATIVE MEDICINE [phone] [place], [place] [address] (Wo rk) Social History Tobacco [...] place to sleep or slept in a nursing home (including now)? Sex Assigned at Date Recorded Male 05/04/2022 4:12 PM EDT documented as of this encounter Miscellaneous Notes Telephone Encounter - Abdelrahman Nunez DO - 06/05/2022 2:09 PM EDT Resending refill with this provider's X license in script. See earlier notes for detail. Carlos Nunez DO Palliative Medicine documented in this encounter Plan of Treatment Upcoming Encounters Date Type Specialty Care Team Description 07/14/2022 TH Visit (TeleHealth) Palliative Care Kian Zelaya APRN [facility] PALLIATIVE MEDIC [place], [place] [address] (Wo rk) 07/22/2022 TH Visit (TeleHealth) Palliative Care Benoit Lei APRN [facility] [place] [address] Criselda Zelaya APRN [facility] [place] [address] 08/12/2022 Office Visit Cardiology Hari Summers MD [facility] [place] [address] Kit Bonilla MD [facility] [place] [address] documented as of this encounter Visit Diagnoses Diagnosis Neoplasm related pain Neoplasm related pain (acute) (chronic) Substance use disorder documented in this encounter Care Teams Retail Aide Relationship Specialty Start Date End Date Willam Waite MD PCP - General 03/24/22 6 [place] [id number] documented as of this encounter
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
--- OUTSIDE RECORDS SUMMARY | 2022-07-12 08:54 | XMS_ITS | Encounter Summary ---
:1965 Author Organization [facility] [place] [address] Care Team Providers Name Role Phone Willam Waite MD Primary Care Provider Encounter Details Date Type Department Care Team Description 06/08/2022 Anesthesia Event [facility] Bambi Medrano MD [facility] [place] [address] ANESTHESIOLOGY DEPT [phone] [place], [place] [address] (Wo rk) Anesthesia Record Procedure Summary Procedure Name Responsible Anesthesia Start Anesthesia Stop Anesthesiologist Time Time ANESTHESIA CONSULT (N/A ) Events No events on file. No medications on file. Agents No agents on file. Blood No blood administrations on file. Lines, Drains, and Airways Type Details Placement Removal Pressure Injury 06/24/22; no; sacral spine; 06/24/22 0000 by Jocelyne Vinson suspected deep tissue injury Sue RN documented in this encounter Social History [...] pay for the very basics like Not leelee myles hard 04/21/2022 food, housing, medical care, and [...] place to sleep or slept in a halfway (including now)? Sex Assigned at Date Recorded Male 05/04/2022 4:12 PM EDT documented as of this encounter Plan of Treatment Upcoming Encounters Date Type Specialty Care Team Description 07/14/2022 Visit (TeleHealth) Palliative Care Kian Zelaya REINFORCING STEEL MACHINE OPERATOR [facility] PALLIATIVE MEDIC ALYSSA [place], [place] [address] (Wo rk) 07/22/2022 TH Visit (TeleHealth) Palliative Care Benoit Lei REINFORCING STEEL MACHINE OPERATOR [facility] [place] [address] Criselda Zelaya REINFORCING STEEL MACHINE OPERATOR [facility] [place] [address] 08/12/2022 Office Visit Cardiology Hari Summers MD [facility] [place] [address] Kit Bonilla MD [facility] [place] [address] documented as of this encounter Visit Diagnoses Not on filedocumented in this encounter Care Teams Claims Attorney Relationship Specialty Start Date End Date Willam Waite MD PCP - General 03/24/22 6 [place] [address] documented as of this encounter
--- OUTSIDE RECORDS SUMMARY | 2022-07-12 08:54 | XMS_ITS | Encounter Summary ---
:1965 Author Organization [facility] Address [facility] [place] [address] Care Team Providers Name Role Phone Willam Waite MD Primary Care Provider Encounter Details Date Type Department Care Team Description 06/08/2022 Hospital Encounter [facility] at at Jennifer Keita MD [facility] [place] [address] [place] [address] [phone] Social History Tobacco Use Types Packs/Day Years [...] place to sleep or slept in a penitentiary (including now)? Sex Assigned at Date Recorded Male 05/04/2022 4:12 PM EDT documented as of this encounter Medications at Time of Discharge Medication Sig Dispensed Refills Start Date End Date labetaloL (Normodyne) 200 mg Take 1 tablet by 30 tablet 0 0 06/27/2022 Tablet mouth 3 times daily. folic acid (Folvite) 1 mg Take 1 tablet by 30 tablet 0 09/0 02/202207/28/2022 Tablet mouth daily for 30 days. thiamine (thiamine Take 1 tablet by 30 tablet 0 06/29/2022 07/29/2022 mononitrate) 100 mg mouth daily for 30 days. OLANZapine (ZyPREXA) 5 mg Take 1 tablet by 60 tablet 0 09/0 01/202207/27/2022 Tablet mouth 2 times daily for 30 days. nicotine (Nicoderm CQ) 21 Change 1 patch 28 patch 3 2021 mg/24 hr Patch 24 hr on the skin daily. acetaminophen (TYLENOL) 650 Take 1,300 mg by 0 mg Tablet Sustained Release mouth every 8 hours as needed for Pain. Do not exceed 6 tabs in 24 hours polyethylene glycoL (Miralax) Take 17 g by 14 each 0 04/23 17 gram Powder in Packet mouth daily as needed. naloxone (Narcan) 4 1 each by Nasal 1 each 0 05/11/2022 mg/actuation [place], route once as Non-Aerosol needed for up to 1 dose. omeprazole (PriLOSEC) 40 mg Take 40 mg by 0 04/22 Capsule, Delayed mouth daily. Release(E.C.) MULTIVITAMIN ORAL Take 1 tablet by 0 mouth daily. albuterol (PROVENTIL Inhale 2 puffs 0 HFA;VENTOLIN HFA) 90 into the lungs mcg/Actuation inhaler every 4 hours as needed. Use with spacer PHENobarbitaL (Luminal) 32.4 Take 1 tablet by 1 tablet 0 0 06/27/2022 06/27/2022 mg Tablet mouth once for 1 dose. Take in the evening at 9pm on day of discharge 06/[address] 2 drops 50 each 0 06/27/2022 07/05/2022 (Refresh Plus) 0.5 % into both eyes 2 Dropperette times daily as needed. PHENobarbitaL (Luminal) 16.2 Take 1 tablet by 2 tablet 0 0 06/28/2022 06/27/2022 mg Tablet mouth 2 times daily for 2 doses. PHENobarbitaL (Luminal) 16.2 Take 0.5 tablets 1 tablet 0 0 06/29/2022 06/27/2022 mg Tablet by mouth 2 times daily. white petrolatum-mineral oiL Place 1 each 7 each 0 06/2707/05/2022 (Refresh-PM) into both eyes nightly. PHENobarbitaL (Luminal) 16.2 Take 1 tablet by 3 tablet 0 0 06/28/2022 07/01/2022 mg Tablet mouth 2 times daily for 1 day, THEN 0.5 tablets 2 times daily for 1 day. OLANZapine (ZyPREXA) 5 mg Take 1 tablet by 4 tablet 0 /12/202106/27/2022 Tablet mouth nightly. diphenhydrAMINE/aluminum-magn Take 5 mLs by 240 mL 5 06/27/2022 esium hydroxide with mouth 4 times simethicone/lidocaine (BMX) daily as needed (6.67 mg-0.83 mg-13.33 (pain). mg-1.33 mg/mL) oral liquid buprenorphine (Subutex) [address] 3 tablets 20 tablet 0 07/01/2022 Tablet, under the tongue SublingualIndications: daily. Neoplasm related pain, Substance use disorder gabapentin (NEURONTIN) 600 mg 600 mg in 120 tablet 0 202107/06/2022 Tablet morning and afternoon and 1200 mg at night prochlorperazine (Compazine) Take 1 tablet by 15 tablet 3 0 05/17/2022 07/01/2022 10 mg Tablet mouth every 6 hours as needed for Nausea. dexAMETHasone (Decadron) 4 mg Take 2 tablets 90 tablet 0 06/27/2022 Tablet by mouth every morning AND 1 tablet every evening. Do all this for 30 days. cloNIDine (Catapres) 0.1 mg Take 2 tablets 180 tablet 0 04/2306/27/2022 Tablet by mouth 3 times daily for 30 days. metoprolol succinate XL Take 25 mg by 0 06/27/2022 (Toprol-XL) 25 mg Tablet mouth daily. Sustained Release 24 hr divalproex EC (Depakote) 500 Take 500 mg by 0 06/27/2022 mg Tablet, Delayed Release mouth 2 times (E.C.) daily. documented as of this encounter Plan of Treatment Upcoming Encounters Date Type Specialty Care Team Description 07/14/2022 TH Visit (TeleHealth) Palliative Care Kian Zelaya APRN [facility] ER PALLIATIVE MEDIC [place], [place] [address] (Wo rk) 07/22/2022 TH Visit (TeleHealth) Palliative Care Benoit Lei APRN [facility] [place] [address] Criselda Zelaya CORE FINISHER [facility] [place] [address] 08/12/2022 Office Visit Cardiology Hari Summers MD [facility] [place] [address] Kit Bonilla MD [facility] [place] [address] documented as of this encounter Visit Diagnoses Not on filedocumented in this encounter Care Teams Weather Observer Relationship Specialty Start Date End Date Willam Waite MD PCP - General 03/24/22 6 [place] [address] documented as of this encounter
--- OUTSIDE RECORDS SUMMARY | 2022-07-12 08:54 | XMS_ITS | Encounter Summary ---
:1965 Author Organization [facility] [place] [address] Care Team Providers Name Role Phone Willam Waite MD Primary Care Provider Encounter Details Date Type Department Care Team Description 06/05/2022 Notes Only Radiation Oncology a t [facility] Elizabeth Mendez MD [facility] D [facility] [place] [address] RADIATION ONCOLOGY [phone] [place], [place] [address] (Wo rk) Social History Tobacco [...] place to sleep or slept in a correction (including now)? Sex Assigned at Date Recorded Male 05/04/2022 4:12 PM EDT documented as of this encounter Progress Notes Elizabeth Mendez MD - 06/05/2022 1:33 PM EDT TOE STAPLER ENCOUNTER: Paged by hospital winder contort operator & informed that Iban had called. She was unableto discern what he was calling about. His speech was unclear. He mentioned suboxone. I called the phone # he left, no answer, left voicemail. I then called [place] [employer] & gave information about his medical history, including ISABELLA & concern by Palliative Care team about use of controlled substances. [facility] Police plan to proceed w/a welfare check, asked me if I recommend an ambulance accompany & I advised yes. documented in this encounter Plan of Treatment Upcoming Encounters Date Type Specialty Care Team Description 07/14/2022 Visit (TeleHealth) Palliative Care Kian Zelaya APRN [facility] PALLIATIVE MEDIC [place], [place] [address] (Wo rk) 07/22/2022 TH Visit (TeleHealth) Palliative Care Benoit Lei [facility] [place] [address] Criselda Zelaya SYSTEMS PLANNER [facility] [place] [address] 08/12/2022 Office Visit Cardiology Hari Summers MD [facility] [place] [address] Kit Bonilla MD [facility] [place] [address] documented as of this encounter Visit Diagnoses Not on filedocumented in this encounter Care Teams Cafeteria Table Attendant Relationship Specialty Start Date End Date Willam Waite MD PCP - General 03/24/22 6 [place] [address] documented as of this encounter
--- OUTSIDE RECORDS SUMMARY | 2022-07-12 08:54 | XMS_ITS | Encounter Summary ---
:1965 Author Organization [facility] [place] [address] Care Team Providers Name Role Phone Willam Waite MD Primary Care Provider Encounter Details Date Type Department Care Team Description 06/08/2022 Notes Only Radiation Oncology [place] [facility] [place]y Donald MD [facility] [place] [facility] [place] [address] RADIATION ONCOLOGY [phone] [place], [place] [address] (Wo rk) Social History Tobacco [...] documented as of this encounter Progress Notes Richy Donald MD - 06/08/2022 11:59 PM EDT Images from the original note were not included. Radiation Oncology Treatment Summary PATIENT NAME: Iban Palomares DATE OF : 1965 DIAGNOSIS / TREATMENT OVERVIEW [id number] (Stage III-A) non small cell lung cancer (adenocarcinoma), Pancoast tumor left upper lobe TREATMENT DETAILS Treatment Intent Curative Site Treated Primary Technique VMAT Adaptive Plan Required No Concurrent Chemo Yes ONC BCA CHEMO (AMB) 05/24/2022 05/31/2022 Day, Cycle Day 1, Cycle 1 Day 8, Cycle 1 CARBOplatin (Paraplatin) IV 255 mg 300 mg dexAMETHasone (PF) 10 mg/mL (Decadron) IV PACLitaxeL (Taxol) IV 50 mg/m2/dose 50 mg/m2/dose ONC BCA CHEMO (AMB) 06/07/2022 Day, Cycle Day 15, Cycle 1 CARBOplatin (Paraplatin) IV 300 mg dexAMETHasone (PF) 10 mg/mL (Decadron) IV PACLitaxeL (Taxol) IV 50 mg/m2/dose Clinical Trial No TECHNICAL DETAILS Total Dose: 60 Gy anticipated (2 @ Gy / fraction), only 20 Gy delivered PLAN IMAGES CLINICAL COURSE Iban Palomares was found unresponsive at the [facility] treatment facility, was found to have a multifocal pneumonia, and was intubated and transferred to the [facility] [place]. He was intubated for ~ 2.5 weeks, was treated for a pneumonia, and struggled with AMS / delirium of unclear origin. Concern was raised for illicit Fentanyl use as the etiology of some of his symptoms given her prior history and UDS.After discharge he continued to have episodic confusion, and was transitioned to systemic therapy alone. FOLLOW UP To follow with medical oncology documented in this encounter Plan of Treatment Upcoming Encounters Date Type Specialty Care Team Description 07/14/2022 TH Visit (TeleHealth) Palliative Care Kian Zelaya [facility] PALLI[facility]IVE [facility]IC [place], [place] [address] (Wo rk) 07/22/2022 TH Visit (TeleHealth) Palliative Care Benoit Lei [facility] [place] [address] Criselda Zelaya [facility] [place] [address] 08/12/2022 Office Visit Cardiology Hari Summers MD [facility] [place] [address] Kit Bonilla MD [facility] [place] [address] documented as of this encounter Visit Diagnoses Not on filedocumented in this encounter Additional Health Concerns Infection Onset Date Last Indicated Resolved Time Haemophilus influenza 06/09/2022 06/09/2022 06/13/2022 8:09 PM EDT documented as of this encounter Care Teams Finishing Operator Relationship Specialty Start Date End Date Willam Waite MD PCP - General 03/24/22 6 [place] [address] documented as of this encounter
--- OUTSIDE RECORDS SUMMARY | 2022-07-12 08:54 | XMS_ITS | Encounter Summary ---
:1965 Author Organization [facility] [place] [address] Care Team Providers Name Role Phone Willam Waite MD Primary Care Provider Encounter Details Date Type Department Care Team Description 06/08/2022 Telephone Palliative Medicine at [facility] Elizabeth Whitmore, [place] [address] Social History Tobacco Use Types Packs/Day [...] to sleep or slept in a senior care (including now)? Sex Assigned at Date Recorded Male 05/04/2022 4:12 PM EDT documented as of this encounter Miscellaneous Notes Telephone Encounter - Elizabeth Whitmore RN - 06/09/2022 12:46 PM EDT Palliative Care Call Caller: Ines Palomares, patient's spouse Reason for Call: recommendations for sore throat management Symptom Review: sore throat Onset: on-going Medications review: -Miracle Mouth Wash- has not started do to cost >100$ Assessment: Ines reports that Iban continues to have throat soreness and pain with swallowing. She states they were unable to afford the miracle mouth wash prescribed at this time. She wonders what other suggestions we have for controlling throat pain. When asked she states she is not aware that a provider has evaluated his throat. He is scheduled with oncology today. Disposition: Telephone advice Plan of Care: -recommend have mouth evaluated at scheduled radiation visit today -may use warm salt water rinses and gargle four times a day -ok to use over the counter throat lozenges -ok to warm water with honey for comfort recommend ice, popsicles, cold drinks rather than warm if that is more helpful. Timeframe to call back if no improvement: call as needed with worsening symptoms Patient/responsible caregiver able to read back instructions/plan of care? Yes, Ines repeated over the counter and non-pharmacologic remedies to help with throat comfort until it can be assessed further. Follow up needed? No changes to currently scheduled follow up plan. documented in this encounter Plan of Treatment Upcoming Encounters Date Type Specialty Care Team Description 07/14/2022 TH Visit (TeleHealth) Palliative Care Kian Zelaya [facility] ER DR PALLIATIVE MEDIC [place], [place] [address] (Wo rk) 07/22/2022 TH Visit (TeleHealth) Palliative Care Benoit Lei, [facility] [place] [address] Criselda Zelaya [facility] [place] [address] 08/12/2022 Office Visit Cardiology Hari Summers MD [facility] [place] [address] Kit Bonilla MD [facility] [place] [address] documented as of this encounter Visit Diagnoses Not on filedocumented in this encounter Care Teams Design Coordinator Relationship Specialty Start Date End Date Willam Waite MD PCP - General 03/24/22 6 [place] [address] documented as of this encounter
--- OUTSIDE RECORDS SUMMARY | 2022-07-12 08:54 | XMS_ITS | Encounter Summary ---
:1965 Author Organization [place] [address] Care Team Providers Name Role Phone Willam Waite MD Primary Care Provider Reason for Visit Reason Onset Date Comments Medication Refill 06/04/2022 Encounter Details Date Type Department Care Team Description 06/04/2022 Refill Palliative Medicine at [facility] Elizabeth Whitmore, [place] [address] Social History Tobacco Use Types Packs/Day [...] TH Visit (TeleHealth) Palliative Care Kian Zelaya STATE DIRECTOR [facility] ER PALLIATIVE MEDIC [place], [place] [address] (Wo rk) 07/22/2022 TH Visit (TeleHealth) Palliative Care Benoit Lie [facility] [place] [address] Criselda Zelaya STATE DIRECTOR [facility] [place] [address] 08/12/2022 Office Visit Cardiology Hari Summers [place] [address] Kit Bonilla MD [facility] [place] [address] documented as of this encounter Visit Diagnoses Not on filedocumented in this encounter Care Teams Acquisition Marketing Coordinator Relationship Specialty Start Date End Date Willma Waite MD PCP - General 03/24/22 6 [place] [address] documented as of this encounter
--- OUTSIDE RECORDS SUMMARY | 2022-07-12 08:54 | XMS_ITS | Encounter Summary ---
:1965 Author Organization [facility] [place] [address] Care Team Providers Name Role Phone Willam Waite MD Primary Care Provider Encounter Details Date Type Department Care Team Description 06/08/2022 Ancillary Procedure Radiology Library [place] [address] [place] [address] [phone] Social History Tobacco Use Types Packs/Day Years [...] place to sleep or slept in a assisted (including now)? Sex Assigned at Date Recorded Male 05/04/2022 4:12 PM EDT documented as of this encounter Plan of Treatment Upcoming Encounters Date Type Specialty Care Team Description 07/14/2022 TH Visit (TeleHealth) Palliative Care Kian Zelaya COUNTY LIBRARY DIRECTOR [facility] ER PALLIATIVE MEDIC [place], [place] [address] (Wo rk) 07/22/2022 TH Visit (TeleHealth) Palliative Care Benoit Lei COUNTY LIBRARY DIRECTOR [facility] PALLIATIVE [place] [address] Criselda Zelaya COUNTY LIBRARY DIRECTOR [facility] PALLIATIVE [place] [address] 08/12/2022 Office Visit Cardiology Hari Summers MD [facility] [place] [address] Kit Bonilla MD [facility] [place] [address] documented as of this encounter Procedures Procedure Name Priority Date/Time Associated Diagnosis Comme nts FILM LIBRARY Routine 06/08/2022 6:23 PM Results f or this STORAGE ONLY DX EDT procedure ar e in CHEST the results section. documented in this encounter Results Film Library- Storage Only DX Chest (06/08/2022 6:23 PM EDT) Specimen (Source) Anatomical Location Collection Method / Collectio n Time Received Time / Laterality Volume Narrative NUHA - 06/08/2022 6:23 PM EDT This exam is auto-finalizing. It's purpo se is for storage only. Elizabeth Parra MD IMG FILM LIBRARY ORDERABLES Performing Organization Address City/State/ZIP Code Phon e Number [place], [place] documented in this encounter Visit Diagnoses Not on filedocumented in this encounter Care Teams Doweler Relationship Specialty Start Date End Date Willam Waite MD PCP - General 03/24/22 [address] [place] [address] documented as of this encounter
--- OUTSIDE RECORDS SUMMARY | 2022-07-12 08:54 | XMS_ITS | Encounter Summary ---
:1965 Author Organization [facility] [place] [address] Care Team Providers Name Role Phone Willam Waite MD Primary Care Provider Encounter Details Date Type Department Care Team Description 06/30/2022 [facility] [place] [phone] Social History Tobacco Use Types Packs/Day [...] place to sleep or slept in a jail (including now)? Sex Assigned at Date Recorded Male 05/04/2022 4:12 PM EDT documented as of this encounter Miscellaneous Notes Telephone Encounter - Rebecca James RN - 06/30/2022 9:37 AM EDT Telephone call to patient. Spoke with his Ines who reports that she discussed with him regarding going to ED yesterday as recommended by Dr. Donald but Iban wanted to wait until this morning to see how he was feeling. A home health nurse from [facility] stopped by around 3:30-4 yesterday to do an evaluation visit. She is not sure when they are planning to stop back but thought it sounded sooner than later. He was doing fine when the nurse was there but had been running a low grade fever prior to that and she had been giving him tylenol. She states that his temperature had been in the 97F range and never was near or above 100 F. His last dose of tylenol was last evening around 7:30 pm. This morning he is doing fine again. No confusion. He ate breakfast and is getting self dressed at time of this call. She checked his temperature during call and reports that it is 99.5 F. I let them know that I will update Dr. Donald and we will return call with updated plan. documented in this encounter Plan of Treatment Upcoming Encounters Date Type Specialty Care Team Description 07/14/2022 TH Visit (TeleHealth) Palliative Care Kian Zelaya FEATHEREDGER AND REDUCER MACHINE [facility] ER PALLIATIVE MEDIC [place], [place] [address] (Wo rk) 07/22/2022 TH Visit (TeleHealth) Palliative Care Benoit Lei FEATHEREDGER AND REDUCER MACHINE [facility] [place] [address] Criselda Zelaya FEATHEREDGER AND REDUCER MACHINE [facility] [place] [address] 08/12/2022 Office Visit Cardiology Hari Summers MD [facility] [place] [address] Kit Bonilla MD [facility] [place] [address] documented as of this encounter Visit Diagnoses Not on filedocumented in this encounter Care Teams Pear Picker Relationship Specialty Start Date End Date Willam Waite MD PCP - General 03/24/22 6 [place] [id number] documented as of this encounter
--- OUTSIDE RECORDS SUMMARY | 2022-07-12 08:54 | XMS_ITS | Encounter Summary ---
:1965 Author Organization [facility] [place] [address] Care Team Providers Name Role Phone Willam Waite MD Primary Care Provider Encounter Details Date Type Department Care Team Description 06/21/2022 Orders Only [place]rology [place] [facility] [place] La, [facility] [place] [facility] [place] [address] NEUROLOGY DEPT [phone] [place], [place] [address] (Wo rk) Social History Tobacco [...] TH Visit (TeleHealth) Palliative Care Kian Zelaya PASTE WORKER [facility] ER PALLIATIVE MEDIC [place], [place] [address] (Wo rk) 07/22/2022 TH Visit (TeleHealth) Palliative Care Benoit Lei PASTE WORKER [facility] [place] [address] Criselda Zelaya PASTE WORKER [facility] [place] [address] 08/12/2022 Office Visit Cardiology Hari Summers MD [facility] [place] [address] Kit Bonilla MD [facility] [place] [address] documented as of this encounter Procedures Procedure Name Priority Date/Time Associated Diagnosis Comme nts MORGAN TUBE HOLD Routine 05/10/2022 10:50 PM Result s for this EDT procedure are i n the results section . documented in this encounter Results Morgan Tube Hold (05/10/2022 10:50 PM EDT) athologist Signature Morgan Hold Sample in [facility]. [facility] Specimen Anatomical Collection Method Collection Time Receive d Time (Source) Location / / Volume Laterality Blood No Charge / 05/10/2022 10:50 05/10/2022 Unknown PM EDT 10:59 PM EDT John La DO CHEMISTRY ORDERABLES Performing Organization Address City/State/[place] [address] documented in this encounter Visit Diagnoses Not on filedocumented in this encounter Care Teams Carbon Brush Maker Relationship Specialty Start Date End Date Willam Waite MD PCP - General 03/24/22 6 [place] [address] documented as of this encounter
--- OUTSIDE RECORDS SUMMARY | 2022-07-12 08:54 | XMS_ITS | Encounter Summary ---
:1965 Author Organization [facility] [place] [address] Care Team Providers Name Role Phone Willam Waite MD Primary Care Provider Reason for Visit Auth/Cert Specialty Diagnoses / Procedures Referred By Contact Refer red To Contact Diagnoses Acute encephalopathy Cerebrovascular accident (CVA), unspecified mechanism stroke Elizabeth Parra MD [facility] Procedures EMERGENCY IPI [facility] [place] [address] Referral ID Status Reason Start Date Expiration Date Visits Requ ested Visits Authorized [id number] 1 1 Encounter Details Date Type Department Care Team Description 06/07/2022 Office Visit Hematology/Oncology Marycruz Ash MD [facility] DR HEMATOLOGY/[place] [address] Primary malignant at [facility] Tami Horton APRN [facility] HEMATOLOGY [place] [address] neoplasm of bronchus [address] [place] [address] Social History Tobacco Use Types [...] place to sleep or slept in a group home (including now)? Sex Assigned at Date Recorded Male 05/04/2022 4:12 PM EDT documented as of this encounter Last Filed Vital Signs Vital Sign Reading Time Taken Comments Blood Pressure 131/78 06/07/2022 10:33 AM EDT Pulse 80 06/07/2022 10:33 AM EDT Temperature 37.1 ??C (98.8 ??F) 06/07/2022 10:33 AM EDT Respiratory Rate 18 06/07/2022 10:33 AM EDT Oxygen Saturation 98% 06/07/2022 10:33 AM EDT Inhaled Oxygen Concentration - - Weight 85.5 kg (188 lb 9.6 oz) 06/07/2022 10:33 AM EDT Height 180.6 cm (5' 11.1) 06/07/2022 10:33 AM EDT Body Mass Index 26.23 06/07/2022 10:33 AM EDT documented in this encounter Progress Notes Kanu Ash MD - 06/07/2022 9:30 AM EDT Images from the original note were not included. Hematology & Medical Oncology [address] [address] Iban Palomares is a 56 y.o. male being seen for the evaluation of lung cancer. Assessment & Plan Iban Palomares is a 56 y.o. male from [place], [place] with h/o COPD, bipolar affective disorder, herniated disc and HTN who was recently diagnosed NSCLC with a large left pancoast tumor. He presented to the ED (April,) with uncontrolled pain in the left upper chest, back and left arm.W/U included an MRI which showed left lung apex mass extending to the scalene triangle, paraspinous soft tissues and superior mediastium with involvement of the T1 and T2 vertebral bodies, the left C7-T1 through T3-T4 neural foramina and the epidural space on the left in the upper thoracic spine. Of note, there was also vascular encasement of left vertebral artery and partial encasement of left subclavian artery. Patient is an active smoker with history of drug abuse. He recently had an EBUS which showed findings of NSCLC, favoring adenocarcinoma. He had pain for several months without relief in the outpatient setting and has continued to get worse which prompted ED visit. # NSCLC - receiving concurrent chemotherapy and radiation with curative intent - Labs and toxicities assessed and acceptable for ongoing treatment. - Continue with D15 carbo/Taxol with concurrent RT # Pain Currently on suboxone and being managed by palliative care (Criselda Zelaya APRN). He has a televideo appt with them on Tuesday # H/O substance use Start of treatment delayed due to patient not presenting for appointments or presenting in an obtunded state - at that time it was deemed unsafe to treat. Will continue to treat as long as he is able to follow expectations set forth by clinic and palliative care team. Reinforced that his /daughtermaintain control of his suboxone - this is part of agreement to continue treatment. Very difficult social circumstances and there is a lot of tension between him and his family and . There does notseem be a great option here is as he is resistant to living with his but has few good alternatives. #transaminitis - AST and ALT elevated today (3-4 times ULN) - total Bili WNL. Will proceed with treatment today and monitor. Asked to limit Acetaminophen to two extra strength 2-3 times a day Routine UDS will be performed. Kanu Ash MD, MS 06/07/2022 Medical Oncology & Hematology [facility] HPI - Interval History Last seen 05/31/2022 Had a fever (not measured they didn't have a thermometer ) and his breathing was not good . Seen at the [place] ED COVID negative by his report. Breathing still not great. Having some some blood in the secretions when he coughs. Feels very edgy. Had suboxone but only 1 on Tuesday. His daughter is picking up his meds right now He is accompanied by his No nausea Social History/Support Network Home situation: /[place] reports [...] of bronchus of left upper lobe C34.12 Current Outpatient Medications on File Prior to Visit Medication Sig Dispense Refill ??? buprenorphine (Subutex) 8 mg Tablet, Sublingual Place 3 tablets under the tongue daily. 20 tablet 0 ??? acetaminophen (TYLENOL) 650 mg Tablet Sustained Release Take 1,300 mg by mouth every 8 hours as needed for Pain. Do not exceed 6 tabs in 24 hours ??? gabapentin (NEURONTIN) 600 mg Tablet 600 mg in morning and afternoon and 1200 mg at night 120 tablet 0 ??? prochlorperazine (Compazine) 10 mg Tablet Take 1 tablet by mouth every 6 hours as needed for Nausea. 15 tablet 3 ??? dexAMETHasone (Decadron) 4 mg Tablet Take 2 tablets by mouth every morning AND 1 tablet every evening. Do all this for 30 days. (Patient taking differently: Take 2 tablets by mouth every morning. Do all this for 30 days.) 90 tablet 0 ??? polyethylene glycoL (Miralax) 17 gram Powder in Packet Take 17 g by mouth daily as needed. 14 each 0 ??? cloNIDine (Catapres) 0.1 mg Tablet Take 2 tablets by mouth 3 times daily for 30 days. 180 tablet0 ??? omeprazole (PriLOSEC) 40 mg Capsule, Delayed Release(E.C.) Take 40 mg by mouth daily. ??? metoprolol succinate XL (Toprol-XL) 25 mg Tablet Sustained Release 24 hr Take 25 mg by mouth daily. ??? divalproex EC (Depakote) 500 mg Tablet, Delayed Release (E.C.) Take 500 mg by mouth 2 times daily. ??? MULTIVITAMIN ORAL Take 1 tablet by mouth daily. ??? albuterol (PROVENTIL HFA;VENTOLIN HFA) 90 mcg/Actuation inhaler Inhale 2 puffs into the lungs every 4 hours as needed. Use with spacer ??? OLANZapine (ZyPREXA) 5 mg Tablet Take 1 tablet by mouth nightly. (Patient not taking: Reported on 06/07/2022) 4 tablet 0 ??? diphenhydrAMINE/aluminum-magnesium hydroxide with simethicone/lidocaine (BMX) (6.67 mg-0.83 mg-13.33 mg-1.33 mg/mL) oral liquid Take 5 mLs by mouth 4 times daily as needed (pain). (Patient not taking: Reported on 06/07/2022) 240 mL 5 ??? naloxone (Narcan) 4 mg/actuation [place], Non-Aerosol 1 each by Nasal route once as needed for up to 1 dose. (Patient not taking: No sig reported) 1 each 0 No current facility-administered medications on file prior to visit. Allergies Allergen Reactions ??? Fentanyl Nausea Only ??? Fluoxetine Other reaction(s): Other ??? Xylocaine In Dextrose 7.5 % [Lidocaine In Dextrose 7.5 %] Other (See Comments) Experienced confusion, sensorium changes, muscle cramps while on lidocaine infusion for pain -> infusion had to be discontinued; would avoid systemic lidocaine in the future. Physical Exam BP 131/78 (Patient Position: Sitting) Pulse 80 Temp 37.1 ??C (98.8 ??F) (Temporal) Resp 18 Ht 180.6 cm (5' 11.1) Wt 85.5 kg (188 lb 9.6 oz) SpO2 98% BMI 26.23 kg/m?? Wt Readings from Last 3 Encounters: 06/07/22 85.5 kg (188 lb 9.6 oz) 06/04/22 81.4 kg (179 lb 6.4 oz) 05/31/22 82.1 kg (181 lb) Physical Exam Constitutional: General: Cooperative but edgy. [...] TH Visit (TeleHealth) Palliative Care Kian Zelaya [facility] ER DR PALLIATIVE MEDIC [place], [place] [address] (Wo rk) 07/22/2022 TH Visit (TeleHealth) Palliative Care Benoit Lei, [facility] [place] [address] Criselda Zelaya [facility] [place] [address] 08/12/2022 Office Visit Cardiology Hari Summers MD [facility] [place] [address] Kit Bonilla MD [facility] [place] [place] [address] documented as of this encounter Visit Diagnoses Diagnosis 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 Malignant neoplasm of upper lobe, bronch us or lung documented in this encounter Care Teams Patient Case Manager Relationship Specialty Start Date End Date Willam Waite MD PCP - General 03/24/22 6 [place] [id number] documented as of this encounter
--- OUTSIDE RECORDS SUMMARY | 2022-07-12 08:54 | XMS_ITS | Encounter Summary ---
:1965 Author Organization [facility] [place] [address] Care Team Providers Name Role Phone Willam Waite MD Primary Care Provider Encounter Details Date Type Department Care Team Description 06/09/2022 Telephone [address] Medicine at [facility] Elizabeth Whitmore, [place] [address] Social History Tobacco Use Types Packs/Day [...] Encounter - Elizabeth Whitmore RN - 06/09/2022 10:41 AM EDT Palliative Care Call Received a call from patient's , Ines, notifying us that Iban was admitted to the ICU after an incident at his oncology appointment yesterday. She states she has been waiting for medical updates but was told the doctors are rounding. She did speak with the palliative care director of social media marketing this morning which she said she appreciated. She had no other questions at this time, just wanted to verify we knew he was here. documented in this encounter Plan of Treatment Upcoming Encounters Date Type Specialty Care Team Description 07/14/2022 TH Visit (TeleHealth) Palliative Care Kian Zelaya APRN [facility] PALLIATIVE MEDIC [place], [place] [address] (Wo rk) 07/22/2022 TH Visit (TeleHealth) Palliative Care Benoit Lei APRN [facility] [place] [address] Criselda Zelaya APRN [facility] [place] [address] 08/12/2022 Office Visit Cardiology Hari Summers MD [facility] [place] [address] Kit Bonilla MD [facility] [place] [address] documented as of this encounter Visit Diagnoses Not on filedocumented in this encounter Care Teams Sausage Meat Trimmer Relationship Specialty Start Date End Date Willam Waite MD PCP - General 03/24/22 6 [place] [phone] documented as of this encounter
--- OUTSIDE RECORDS SUMMARY | 2022-07-12 08:54 | XMS_ITS | Encounter Summary ---
:1965 Author Organization [facility] Address [facility] [place] [address] Care Team Providers Name Role Phone Willam Waite MD Primary Care Provider Encounter Details Date Type Department Care Team Description 06/04/2022 Orders Only Palliative Medicine at [facility], jessi Tang MD Substance use disorder [facility] [place] [address] MEDICINE [phone] [place], [place] [address] Social History Tobacco Use Types [...] place to sleep or slept in a chcf (including now)? Sex Assigned at Date Recorded Male 05/04/2022 4:12 PM EDT documented as of this encounter Plan of Treatment Upcoming Encounters Date Type Specialty Care Team Description 07/14/2022 TH Visit (TeleHealth) Palliative Care Kian Zelaya ASSOCIATE PROFESSOR COMPUTER SCIENCE [facility] ER PALLIATIVE MEDIC [place], [place] [address] (Wo rk) 07/22/2022 TH Visit (TeleHealth) Palliative Care Benoit Lei ASSOCIATE PROFESSOR COMPUTER SCIENCE [facility] [place] [address] Criselda Zelaya ASSOCIATE PROFESSOR COMPUTER SCIENCE [facility] [place] [address] 08/12/2022 Office Visit Cardiology Hari Summers MD [facility] [place] [address] Kit Bonilla MD [facility] [place] [address] Scheduled Orders Name Type Priority Associated Diagnoses Order S chedule Opioids Confirmation Lab Routine Substance use disord er Expected: 06/11/2022 Panel, Urine (Approximate), Expires: 2022 documented as of this encounter Visit Diagnoses Diagnosis Substance use disorder documented in this encounter Care Teams Financial Institution Vice President Relationship Specialty Start Date End Date Willam Waite MD PCP - General 03/24/22 6 [place] [phone] documented as of this encounter
--- OUTSIDE RECORDS SUMMARY | 2022-07-12 08:54 | XMS_ITS | Encounter Summary ---
:1965 Author Organization [facility] [place] [address] Care Team Providers Name Role Phone Willam Waite MD Primary Care Provider Encounter Details Date Type Department Care Team Description 07/06/2022 Telephone Palliative Medicine at [facility] Amelia Gupta, [place] [address] Social History Tobacco Use Types Packs/Day [...] this encounter Miscellaneous Notes Telephone Encounter - Amelia Gupta RN - 07/06/2022 11:52 AM EDT Palliative Care Call Caller: RN to client Iban and nurse behavioral health care Ines Reason for Call: Follow up on voicemail that Iban left reporting worsening pain. Return call to Ines. She states that pain has been worsneing. She wonders if it is related to treatment being on hold. She states he has had his baseline chest/neck pain. However last PM he noted new pain along the backof head. When the pain gets severe he will become diaphoretic. His subutex dosing usually is 3 tabs/day total, split into doses. If pain is bad, Ines will cut tabs in 1/2 to stretch dosing out. However, in recent days, he has been taking more that 3 tabs/day. Yesterday he took 1/2 tab extra x2 and then an additional 1 tab extra in the PM. Unclear how much extra he took on Tuesday. They have #2 tabs remaining. She does report sleeping well with addition of clonazepam. Confirmed Gabapentin 600mg in AM, 600mg in afternoon, and 1200mg in evening. Next Palliative Care appointment: 07/08/22 Plan of Care: -Updated Criselda Zelaya APRN of the above who called client/nurse behavioral health care directly. Please see her note for full plan of care. Follow up needed? No documented in this encounter Plan of Treatment Upcoming Encounters Date Type Specialty Care Team Description 07/14/2022 TH Visit (TeleHealth) Palliative Care Kian Zelaya PLANT TENDER [facility] PALLIATIVE MEDIC ALYSSA [place], [place] [address] (Wo rk) 07/22/2022 TH Visit (TeleHealth) Palliative Care Benoit Lei [facility] [place] [address] Criselda Zelaya [facility] [place] [address] 08/12/2022 Office Visit Cardiology Hari Summers MD [facility] [place] [address] Kit Bonilla MD [facility] [place] [address] documented as of this encounter Visit Diagnoses Not on filedocumented in this encounter Care Teams College Basketball Coach Relationship Specialty Start Date End Date Willam Waite MD PCP - General 03/24/22 6 [place] [phone] documented as of this encounter
--- OUTSIDE RECORDS SUMMARY | 2022-07-12 08:54 | XMS_ITS | Encounter Summary ---
:1965 Author Organization [facility] [place] [address] Care Team Providers Name Role Phone Willam Waite MD Primary Care Provider Encounter Details Date Type Department Care Team Description 06/03/2022 Orders Only [facility] PCI SECURITY CONSULTANT dependence [address] [place] [address] HEMATOLOGY AND [phone] ONCOLOGY [place], [place] [address] Social History Tobacco Use Types [...] TH Visit (TeleHealth) Palliative Care Kian Zelaya PCI SECURITY CONSULTANT [facility] ER PALLIATIVE MEDIC [place], [place] [address] (Wo rk) 07/22/2022 TH Visit (TeleHealth) Palliative Care Benoit Lei PCI SECURITY CONSULTANT [facility] [place] [address] Criselda Zelaya PCI SECURITY CONSULTANT [facility] [place] [address] 08/12/2022 Office Visit Cardiology Hari Summers MD [facility] [place] [address] Kit Bonilla MD [facility] [place] [address] Scheduled Orders Name Type Priority Associated Diagnoses Order S chedule Rapid Drug Screen, Lab Routine Drug abuse and depende nce Expected: 06/07/2022, Urine (AKIRA Request) Expires: 12/07/2022 documented as of this encounter Visit Diagnoses Diagnosis Drug abuse and dependence Unspecified drug dependence, unspecified documented in this encounter Care Teams Hydraulic Auto Jack Mechanic Relationship Specialty Start Date End Date Willam Waite MD PCP - General 03/24/22 6 [place] [phone] documented as of this encounter
--- OUTSIDE RECORDS SUMMARY | 2022-07-12 08:54 | XMS_ITS | Encounter Summary ---
:1965 Author Organization [facility] [place] [address] Care Team Providers Name Role Phone Willam Waite MD Primary Care Provider Encounter Details Date Type Department Care Team Description 07/06/2022 Telephone Palliative Medicine at [facility] Criselda Zelaya APRN [facility] [place] [address] PALLIATIVE MEDICINE [phone] [place], [place] [address] (Wo rk) Social History Tobacco [...] this encounter Miscellaneous Notes Telephone Encounter - Criselda Zelaya, CEMENT BREAKER - 07/06/2022 12:30 PM EDT Iban reports he has had shooting pain starts at base of neck and shoots up to the top of the head. It started 3-4 days ago and worsens He denies have some blurry vision and then vision returns Having a difficult time turning head He saw Dr. Ash yesterday and will start immunotherapy next Tuesday He will see Dr. Waite later today (who is his PCP)-- You self-increased the dose of Subutex - some days to 28 mg daily He has continued with the gabapentin 600 mg, twice daily and 1200 mg nightly He states the alprazalom 1/2 to 1 mg has been helping at night- at times gets at least 6 hours of sleep He denies any illicit substance ues O: Iban is alert, oriented and coherent on the phone Assessment: worsening pain secondary to tumor and nerve involvement; would need to ensure no other neurologic process Plan: Follow up with Dr. Waite today-- If Dr. Waite does not receive this note advised to call our office Will trotate pregabalin starting 150 mg twice daily and if tolerates can increase to 150 mg q8h #60 Will refill Subutex 8 mg TID #24 - can fill early -- may have to pay for one day out of pocket-- Will need to try to appeal to insurance for dose increase as has uncontrolled cancer pain, can not be fred mu-agonist opioid due to substance use disorder and 32 mg daily of buprenorphine has been shown bambi safe. Criselda Zelaya APRN documented in this encounter Plan of Treatment Upcoming Encounters Date Type Specialty Care Team Description 07/14/2022 TH Visit (TeleHealth) Palliative Care Kian Zelaya APRN 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
--- OUTSIDE RECORDS SUMMARY | 2022-07-12 08:54 | XMS_ITS | Encounter Summary ---
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 Secondary malignant neoplasm of bone Kanu Ash MD [facility] Procedures TC PALONOSETRON HCL, 25MCG, INJECTION (ALOXI) TC FOSAPREPITANT, 1MG, INJECTION (EMEND) TC CARBOPLATIN, 50MG, INJECTION (PARAPLATIN) TC PEMETREXED, 10MG, INJECTION (ALIMTA) J2469 Aloxi 0.25 MG - NR J1453 EMEND [address] J9045 CARBOplatin (Paraplati n) 750 MG J9305 ALIMTA 980 MG [id number] KEYTRUDA 200 MG HEMATOLOGY/[place] [phone] Fax: Referral ID Status Reason Start Date Expiration Date Visits V isits Requested Authorized [id number] Authorized 07/07/2022 07/07/2023 99 99 Encounter Details Date Type Department Care Team Description 07/12/2022 Office Visit Hematology/Oncology Marycruz Ash MD [facility] DR HEMATOLOGY/[place] [address] Primary malignant at [facility] Tami [place] APRN [facility] DR HEMATOLOGY [place] [address] neoplasm of bronchus [address] [place] [address] Social History Tobacco Use Types [...] place to sleep or slept in a long term (including now)? Sex Assigned at Date Recorded [...] Mass Index 24.34 07/12/2022 8:24 AM EDT documented in this encounter Patient Instructions Patient InstructionsFuldKanu MD - 07/12/2022 8:00 AM EDT The plan is for Carboplatin/Pemetrexed/Pembrolizumab given every 21 days for 4-6 cycles, followed bymaintenance pemetrexed/pembrolizumab. We will arrange a CT scan to assess response every 2 cycles (6weeks). Antitumor Therapy Schedule: Pembrolizumab given on Day 1 of a 21 day cycle, infuses over 30 min Carboplatin given on Day 1 of a 21 day cycle, infuses over 30 min Pemetrexed given on Day 1 of a 21 day cycle, infuses over 10 min Pre-medication to prevent nausea Supportive care: B12 injection every 3 cycles Plan for 5 hrs in infusion on the days of chemotherapy Laboratory Tests: Check blood counts, kidney and liver function, thyroid function and electrolytes prior to each treatment. Provider Visits: Day 1 of each cycle. In some cases, will also schedule a clinic visit on Day 14 of the cycle to check labs and assess symptoms. Possible Side Effects include, but are not limited to: Carboplatin and Pemetrexed: The most common side effects include decrease in blood counts (decrease in white blood cells, red blood cells and platelets resulting in increased risk of infection, anemia and bleeding), nausea and vomiting, taste changes, decreased appetite, constipation (or less likely di arrhea), fatigue. Less common side effects include infusion reaction, rash, mouth sores, kidney dysfunction, electrolyte abnormalities, ringing in the ears or hearing impairment. Pembrolizumab: The most common potential side effects are fatigue, decreased appetite, itching, nausea, and anemia. It is important to be aware of the potential immune-mediated toxicities, including pneumonitis, colitis, hepatitis, rash, neuropathy, and endocrinopathies. Call immediately if any changein breathing, 3 or more loose or watery stools in 24 hrs (do not take immodium), rash, profound fatigue, headaches or vision changes. Prompt treatment is required with high dose steroids. Medications: the following prescriptions should be picked up before starting treatment Folic acid 400-1000 mcg/day, ongoing medication (available in either a multivitamin or by prescription) Compazine 10 mg oral every 6 hours as needed for nausea Optional: Zofran 8 mg oral every 8 hours as needed for nausea (do not take for 3 days after chemotherapy) Do not take aleve, ibuprofen or other NSAIDs while on this therapy General recommendations: Call if temperature of 100.4 or greater or signs of symptoms of an infection. It is very important to practice good hand hygiene and wash your hands frequently. Please call if your experience bleeding, new/increasing SOB, or chest pain chest pain. Call if nausea/vomiting persists despite trying your antinausea medcations. Try to stay hydrated. Water is the best option Smaller/ more frequent meals and blander foods may be better tolerated. Call if you develop mouth sores so we can discuss mouth rinses, dietary recommendations and strategies for pain management. Please tell us if you experience numbness/tingling/changes in sensation in hands or feet You should use a barrier method of protection if sexually active on days of chemotherapy and for 48 hours afterwards Try to stay active if at all possible. This helps reduce or limit fatigue. It is ok to take naps andrest if you need to. documented in this encounter Plan of Treatment Upcoming Encounters Date Type Specialty Care Team Description 07/14/2022 TH Visit (TeleHealth) Palliative Care Kian Zelaya [facility] PALLIATIVE MEDIC ALYSSA [place], [place] [address] (Wo rk) 07/22/2022 TH Visit (TeleHealth) Palliative Care Benoit Lei, [facility] [place] [address] Criselda Zelaya [facility] [place] [address] 08/12/2022 Office Visit Cardiology Hari Summers MD [facility] [place] [address] Kit Bonilla MD [facility] [place] [address] documented as of this encounter Visit Diagnoses Diagnosis 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 Malignant neoplasm of upper lobe, bronch us or lung documented in this encounter Care Teams Asphalt Coater Relationship Specialty Start Date End Date Willam Waite MD PCP - General 03/24/22 6 [place] [phone] documented as of this encounter
--- OUTSIDE RECORDS SUMMARY | 2022-07-12 08:54 | XMS_ITS | Encounter Summary ---
:1965 Author Organization [facility] [place] [address] Care Team Providers Name Role Phone Willam Waite MD Primary Care Provider Encounter Details Date Type Department Care Team Description 06/05/2022 Notes Only Radiation Oncology a t [facility] Elizabeth Mendez MD [facility] D [facility] [place] [address] RADIATION ONCOLOGY [phone] [place], [place] [address] (Wo rk) Social History Tobacco [...] Progress Notes Elizabeth Mendez MD - 06/05/2022 2:53 PM EDT [place] [employer] called to report that Iban is not presently living @ home in [place], [place] & is residing @ a shelter @ [address] [place] [address]. Note now available in chart indicates that he contacted Palliative Care today for refill of buprenorphine, BMX & Zyprexa; as of 2:40 pm, buprenorphine had not yet been picked up; Palliative Care team has been in contact w/ Ines. documented in this encounter Plan of Treatment Upcoming Encounters Date Type Specialty Care Team Description 07/14/2022 Visit (TeleHealth) Palliative Care Kian Zelaya APRN [facility] PALLIATIVE MEDIC [place], [place] [address] (Wo rk) 07/22/2022 TH Visit (TeleHealth) Palliative Care Benoit Lei APRN [facility] [place] [address] Criselda Zelaya RELAY TESTER [facility] [place] [address] 08/12/2022 Office Visit Cardiology Hari Summers MD [facility] [place] [address] Kit Bonilla MD [facility] [address] documented as of this encounter Visit Diagnoses Not on filedocumented in this encounter Care Teams Pet Handler Relationship Specialty Start Date End Date Willam Waite MD PCP - General 03/24/22 6 [place] [address] documented as of this encounter
--- OUTSIDE RECORDS SUMMARY | 2022-07-12 08:54 | XMS_ITS | Encounter Summary ---
:1965 Author Organization [facility] [place] [address] Care Team Providers Name Role Phone Willam Waite MD Primary Care Provider Encounter Details Date Type Department Care Team Description 06/21/2022 Orders Only Neurology at [facility] John La, [facility] [place] [address] NEUROLOGY DEPT [phone] [place], [place] [address] (Wo rk) Social History Tobacco [...] place to sleep or slept in a [place] (including now)? Sex Assigned at Date Recorded Male 05/04/2022 4:12 PM EDT documented as of this encounter Plan of Treatment Upcoming Encounters Date Type Specialty Care Team Description 07/14/2022 TH Visit (TeleHealth) Palliative Care Kian Zelaya [employer] [facility] ER PALLIATIVE MEDIC [place], [place] [address] (Wo rk) 07/22/2022 TH Visit (TeleHealth) Palliative Care Benoit Lei [employer] [facility] [place] [address] Criselda Zelaya [employer] [facility] [place] [address] 08/12/2022 Office Visit Cardiology Hari Summers MD [facility] [place] [address] Kit Bonilla MD [facility] [place] [address] documented as of this encounter Procedures Procedure Name Priority Date/Time Associated Diagnosis Comme nts RED TUBE HOLD Routine 05/10/2022 10:50 PM Results for this EDT procedure are i n the results section . documented in this encounter Results Red Tube Hold (05/10/2022 10:50 PM EDT) athologist Signature Red Hold Sample in [facility] lab. [facility] Specimen Anatomical Collection Method Collection Time Receive d Time (Source) Location / / Volume Laterality Blood No Charge / 05/10/2022 10:50 05/10/2022 Unknown PM EDT 10:58 PM EDT John La DO CHEMISTRY ORDERABLES Performing Organization Address City/State/[place] [address] documented in this encounter Visit Diagnoses Not on filedocumented in this encounter Care Teams Speech Therapy Teacher Relationship Specialty Start Date End Date Willam Waite MD PCP - General 03/24/22 6 [place] [address] documented as of this encounter
--- OUTSIDE RECORDS SUMMARY | 2022-07-12 08:54 | XMS_ITS | Encounter Summary ---
:1965 Author Organization [facility] [place] [address] Care Team Providers Name Role Phone Wilalm Waite MD Primary Care Provider Encounter Details Date Type Department Care Team Description 06/02/2022 Notes [facility] [place] [phone] Social History Tobacco Use Types Packs/Day [...] place to sleep or slept in a intermediate (including now)? Sex Assigned at Date Recorded Male 05/04/2022 4:12 PM EDT documented as of this encounter Progress Notes Rebecca James RN - 06/02/2022 4:22 PM EDT Radiation Oncology Nursing on Treatment Note Backgound: Patient asked to be seen by nursing today for new rash. Patient has received 1400 cGy to the left lung for treatment of lung cancer. Side effects that patient is experiencing: New itchy rash. Assessment: Iban reports that he noticed new rash on his back last night as it was itchy. Also notedon bilateral arms. Has not tried anything to stop the itch. Denies pain with rash. Denies any new difficulty breathing. Denies any new foods, drugs, detergents etc. Noted diffuse slightly raised rash on back and bilateral upper extremities. Cycle 1, Day 8 Paclitaxel/Carboplatin given 05/31/22. Anticipatory guidance/ interventions: Advised patient that rash not likely from xrt due to location.I reached out to Souleymane Harrison RN , med/onc triage nurse who evaluated and recommended that hecould try otc benadryl cream per package instructions. Instructed him to report worsening rash. Instructed to proceed to ED if he develops any acute difficulty breathing. Other: He verbalized understanding of instructions and is agreeable to this plan. Plan: Weekly MD otv tomorrow with Dr. Wharton, covering for Dr. Donald. Dr. Ash and Tami Horton APRN also updated with this note. documented in this encounter Plan of Treatment Upcoming Encounters Date Type Specialty Care Team Description 07/14/2022 TH Visit (TeleHealth) Palliative Care Kian Zelaya APRN [facility] ER DR PALLIATIVE MEDIC [place], [place] [address] (Wo rk) 07/22/2022 TH Visit (TeleHealth) Palliative Care Benoit Lei [facility] [place] [address] Criselda Zelaya [facility] [place] [address] 08/12/2022 Office Visit Cardiology Hari Summers MD [facility] [place] [address] Kit Bonilla MD [facility] [place] [address] documented as of this encounter Visit Diagnoses Not on filedocumented in this encounter Care Teams Technical Applications Scientist Relationship Specialty Start Date End Date Willam Waite MD PCP - General 03/24/22 6 [place] [address] documented as of this encounter
--- OUTSIDE RECORDS SUMMARY | 2022-07-12 08:55 | XMS_ITS | Encounter Summary ---
:1965 Author Organization [facility] [place] [address] Care Team Providers Name Role Phone Willam Waite MD Primary Care Provider Reason for Visit Reason Onset Date Comments Medication Refill 05/18/2022 Encounter Details Date Type Department Care Team Description 05/18/2022 Refill Palliative Medicine at [facility] Criselda Zelaya [place] [place] [phone] PALLIATIVE MEDICINE [phone] [place], [place] [address] (Wo rk) Social History Tobacco Use Types Packs/Day Years Used Date Current Every Day Smoker Cigarettes 1 40 Smokeless Tobacco: Never Used Comments: 6 [...] TH Visit (TeleHealth) Palliative Care Kian Zelaya ANNUAL GIVING DIRECTOR [facility] ER PALLIATIVE MEDIC [place], [place] [address] (Wo rk) 07/22/2022 TH Visit (TeleHealth) Palliative Care Benoit Lei APRN [facility] PALLIATIVE [place] [address] Criselda Zelaya ANNUAL GIVING DIRECTOR [facility] PALLIATIVE [place] [address] 08/12/2022 Office Visit Cardiology Hari Summers MD [facility] [place] [address] Kit Bonilla MD [facility] [place] [address] documented as of this encounter Visit Diagnoses Not on filedocumented in this encounter Care Teams Electrical/Instrument Technician Relationship Specialty Start Date End Date Willam Waite MD PCP - General 03/24/22 6 [place] [address] documented as of this encounter
--- OUTSIDE RECORDS SUMMARY | 2022-07-12 08:55 | XMS_ITS | Encounter Summary ---
:1965 Author Organization [facility] [place] [address] Care Team Providers Name Role Phone Willam Waite MD Primary Care Provider Encounter Details Date Type Department Care Team Description 05/17/2022 Clinical Support Hematology/Oncology Tami Ash MD [facility] DR HEMATOLOGY/[place] [address] 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; at [facility] Tami Horton APRN [facility] DR HEMATOLOGY [place] [address] Encounter for education; [address] [place] [address] Social History Tobacco Use Types [...] Sign Reading Time Taken Comments Blood Pressure 144/85 05/17/2022 10:00 AM EDT Pulse 82 05/17/2022 10:00 AM EDT Temperature 36.3 ??C (97.3 ??F) 05/17/2022 10:00 AM EDT Respiratory Rate 18 05/17/2022 10:00 AM EDT Oxygen Saturation 98% 05/17/2022 10:00 AM EDT Inhaled Oxygen Concentration - - Weight 80.9 kg (178 lb 6.4 oz) 05/17/2022 10:00 AM EDT Height 180.3 cm (5' 10.98) 05/17/2022 10:00 AM EDT Body Mass Index 24.89 05/17/2022 10:00 AM EDT documented in this encounter Patient Instructions Patient InstructionsForTami garcia APRN - 05/17/2022 10:00 AM EDT The plan is for you to receive TWO chemotherapy drugs (Carboplatin & Paclitaxel) WEEKLY with concurrent DAILY RADIATION for 6-7 weeks (schedules may vary a touch) to treat your lung cancer Antitumor Therapy Schedule: Pre-medications are given to prevent nausea and reduce the chance of reactions to the treatments Carboplatin infuses over 30 minutes Paclitaxel infuses over 60 minutes Plan for approximately 2-3 hrs in infusion on the days that your receive chemotherapy. The days thatyour receive just radiation will be shorter. Laboratory Tests: Prior to each treatment we will check blood counts, kidney and liver function and electrolytes. Sometimes if these are too low we will need to delay your treatment or reduce your dose Provider Visits: Weekly during treatment Possible Side Effects include, but are not limited to: Carboplatin and Paclitaxel: The most common side effects include decrease in blood counts (decrease in white blood cells, red blood cells and platelets resulting in increased risk of infection, anemia and bleeding), nausea and vomiting, taste changes, decreased appetite, constipation (or less likely di arrhea), fatigue. Less common side effects include infusion reaction, rash, mouth sores, kidney dysfunction, electrolyte abnormalities. Medications: the following prescriptions should be picked up before starting treatment Prochlorperazine (aka Compazine) 10 mg oral every 6 hours as needed for nausea Optional: Ondansetron (aka Zofran) 4-8 mg oral every 8 hours as needed for nausea (do not take for 3days after chemotherapy because we give you a long acting form of this on the day of infusion that lasts 72 hours) General recommendations: Call if temperature of 100.4 [...] take naps andrest if you need to. At the end of the 6-7 week period we will repeat a CT scan. Then, assuming the results look fine, we would consider starting a monthly drug called Durvalumab. This is a immunotherapy drug (as opposed to a chemotherapy drug) that helps the bodies immune system attack rogue left over cancer cells that are still left behind. This has been shown in studies to increase the chances that the chemotherapy and radiation therapy will cure you of this cancer. We will talk more about this drug later on in your treatment. It generally has fewer side effects and easier to tolerate than the chemotherapy and radiation. It is given monthly for 12 months. It takes about 1 hour to be infused. documented in this encounter Progress Notes Tami Horton APRN - 05/17/2022 10:00 AM EDT Images from the original note were not included. Hematology & [place] [address] Assessment and Plan Iban Palomares is a 56 y.o. male from [place], [place] with h/o COPD, bipolar affective disorder, herniated disc and HTN who was recently diagnosed NSCLC with a large left pancoast tumor. He presented to the ED (April,) with uncontrolled pain in the left upper chest, back and left arm.W/u included an MRI which showed left lung [...] He recently had an EBUS which showed preliminary findings of NSCLC, favoring adenocarcinoma. He had pain for several months without relief in theoutpatient setting and has continued to get worse which prompted ED visit. Plan: # NSCLC Chemotherapy teaching today including information below: Start C1D1 Carbo/Taxol with concurrent radiation on 05/18/22 # Pain Currently on suboxone and being managed by palliative care (Criselda Zelaya APRN) # H/O drug abuse UDS today at [facility] Chemotherapy teaching The plan is for you to receive TWO chemotherapy drugs (Carboplatin & Paclitaxel) WEEKLY with concurrent DAILY RADIATION for 6-7 weeks (schedules may vary a touch) to treat your lung cancer Antitumor Therapy Schedule: Pre-medications are given to prevent nausea and reduce the chance of reactions to the treatments Carboplatin infuses over 30 minutes Paclitaxel infuses over 60 minutes Plan for approximately 2-3 hrs in infusion on the days that your receive chemotherapy. The days thatyour receive just radiation will be shorter. Laboratory Tests: Prior to each treatment we will check blood counts, kidney and liver function and electrolytes. Sometimes if these are too low we will need to delay your treatment or reduce your dose Provider Visits: Weekly during treatment Possible Side Effects include, but are not limited to: Carboplatin and Paclitaxel: The most common side effects include decrease in blood counts (decrease in white blood cells, red blood cells and platelets resulting in increased risk of infection, anemia and bleeding), nausea and vomiting, taste changes, decreased appetite, constipation (or less likely di arrhea), fatigue. Less common side effects include infusion reaction, rash, mouth sores, kidney dysfunction, electrolyte abnormalities. Medications: the following prescriptions should be picked up before starting treatment ??? Prochlorperazine (aka Compazine) 10 mg oral every 6 hours as needed for nausea ??? Optional: Ondansetron (aka Zofran) 4-8 mg oral every 8 hours as needed for nausea (do not take for 3 days after chemotherapy because we give you a long acting form of this on the day of infusion that lasts 72 hours) General recommendations: ??? Call if temperature of 100.4 or greater or signs of symptoms of an infection. ??? It is very important to practice good hand hygiene and wash your hands frequently. ??? Please call if your experience bleeding, new/increasing SOB, or chest pain chest pain. ??? Call if nausea/vomiting persists despite trying your antinausea medcations. ??? Try to stay hydrated. Water is the best option ??? Smaller/ more frequent meals and blander foods may be better tolerated. ??? Call if you develop mouth sores so we can discuss mouth rinses, dietary recommendations and strategies for pain management. ??? Please tell us if you experience numbness/tingling/changes in sensation in hands or feet ??? You should use a barrier method of protection if sexually active on days of chemotherapy and for48 hours afterwards ??? Try to stay active if at all possible. This helps reduce or limit fatigue. It is ok to take napsand rest if you need to. At the end of the 6-7 week period we will repeat a CT scan. Then, assuming the results look fine, we would consider starting a monthly drug called Durvalumab. This is a immunotherapy drug (as opposed to a chemotherapy drug) that helps the bodies immune system attack rogue left over cancer cells that are still left behind. This has been shown in studies to increase the chances that the chemotherapy and radiation therapy will cure you of this cancer. We will talk more about this drug later on in your treatment. It generally has fewer side effects and easier to tolerate than the chemotherapy and radiation. It is given monthly for 12 months. It takes about 1 hour to be infused. Physical Exam BP 144/85 (Patient Position: Sitting) Pulse 82 Temp 36.3 ??C (97.3 ??F) (Temporal) Resp 18 Ht 180.3 cm (5' 10.98) Wt 80.9 kg (178 lb 6.4 oz) SpO2 98% BMI 24.89 kg/m?? GENERAL: Thin male appearing in NAD HEENT: Eyes: b/l pupils pinpoint with little reaction to light, no conjunctival pallor , no scleral icterus; Sinuses: non-tender; Oropharynx : dry and tongue red - No lesions, No thrush. Poor dentition NECK: supple without cervical adenopathy CARDIOVASCULAR: Heart with regular rate and rhythm without S3,S4 or murmurs. No cyanosis or peripheral edema. PULMONARY: BS diminished b/l with some scattered rhonchi heard. Effort WNL ABDOMEN: Abdomen soft and non-tender. No palpable masses or hepatosplenomegaly. BS normoactive. MUSCULOSKELETAL: Moves and ambulates independently. Tenderness to palpation cervical spine, upper thoracic spine and left scapula EXTREMITIES: No edema or calf tenderness SKIN: No rashes noted. Scarring noted over forearms b/l. Skin intact. NEURO: Alert and oriented to person, place, time. Speech clear however is pressured at times PSYCH: Appeared agitated/hyperactive throughout visit. Argued with his Labs 05/17/22 WBC 11.84, Hgb, 12.6, Plt Ct [...] Care Kian Zelaya APRN [facility] ER PALLIATIVE MEDIC [place], [place] [address] (Wo rk) 07/22/2022 TH Visit (TeleHealth) Palliative Care Benoit Lei APRN [facility] [place] [address] Criselda Zelaya MANAGER TALENT ACQUISITION [facility] [place] [address] 08/12/2022 Office Visit Cardiology Hari Summers [place] [address] Kit Bonilla MD [facility] [place] [address] documented as of this encounter Visit Diagnoses Diagnosis 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 Malignant neoplasm of upper lobe, bronch us or lung Encounter for education Counseling NOS Drug abuse and dependence Unspecified drug dependence, unspecified documented in this encounter Care Teams Band Bias Machine Operator Relationship Specialty Start Date End Date Willam Waite MD PCP - General 03/24/22 6 [place] [address] documented as of this encounter
--- OUTSIDE RECORDS SUMMARY | 2022-07-12 08:55 | XMS_ITS | Encounter Summary ---
:1965 Author Organization [facility] [place] [address] Care Team Providers Name Role Phone Willam Waite MD Primary Care Provider Encounter Details Date Type Department Care Team Description 05/19/2022 Telephone Palliative Medicine [place] [facility] [place] Elizabeth Whitmore, [place] [address] Social History Tobacco Use Types Packs/Day [...] Telephone Encounter - Elizabeth Whitmore RN - 05/19/2022 3:22 PM EDT Palliative Care Call Caller: RN to patient and family members. Reason for Call: Received a voicemail from patient's daughter Ever stating that her father is ready to get help and wondering where they should bring him. RN call back for further clarification of request. Upon call back I first spoke with Ever who then handed the phone to her mother, Iban was also there in the background participating in the conversation. They state that Iban arrived to his 's home today, sweaty out of breath after walking 15 miles to get to the home. They state that Iban is ready to start his cancer therapies as well as take prescribed medications for pain relief. Ines reports that she did give Iban two tablets of suboxone today. They wonder if Iban can be admitted to the hospital so that he could get help for his substance use while concurrently getting his cancer therapies. They state that Iban does not have place to live. He can not live with his daughter and can not livewit his due to safety concerns if Iban can not maintain sobriety. I wondered if Iban would be attending his scheduled radiation today, Ines stated no as he is too high and worries that they would just turn him away as the did yesterday. I asked what substances he has been taking and what he is high on, Iban reported just weed. I explained that unfortunately I am unable to provide they with a housing/living advice for them at this time. Explained, that they would need to discuss with the oncology team as to wether or not his treatmentscould be given in an inpatient environment but did not think there is an indication for it at this time. However in general I am un-aware of an inpatient hospital that would allow for Iban to undergo both substance use treatment and recovery as well as simultaneously getting his cancer therapies in this area. Above information reviewed with Criselda Zelaya APRN. Plan of Care: For Pain: -continue with prescribed Subutex 8mg tablet, 3 tablets daily for pain. Chacon to continue to monitor and dispense subutex for Iban's safety. -if pain is not controlled with current medications then report to ED for additional assessment and interventions. For Cancer Treatment: -contact oncology team to verify appointments and plan of care. -follow up with oncology team regarding their request for possible in-paitent cancer therapy to assure compliance and avoid temptation for setbacks from substance use as it would no longer be availableto him. -request for referral to laundromat worker to assist with complex social situation and recommendations For Patient/Family Safety: -if Iban becomes unsafe to himself or others Chacon is to call 911 for assistance. Patient/responsible caregiver able to read back instructions/plan of care? Yes, Chacon verbalized understanding and repeated plan of care out load so that Iban and Ever could hear full discussion. Follow up needed? Yes, recommended Chacon contact the oncology team to confirm ok to continue on withcurrently scheduled cancer directed treatments tomorrow as scheduled. documented in this encounter Plan of Treatment Upcoming Encounters Date Type Specialty Care Team Description 07/14/2022 Visit (TeleHealth) Palliative Care Kian Zelaya APRN [facility] DR PALLIATIVE MEDIC [place], [place] [address] (Wo rk) 07/22/2022 TH Visit (TeleHealth) Palliative Care Benoit Lei INTENSIVE CARE UNIT NURSE [facility] [place] [address] Criselda Zelaya [facility] [place] [address] 08/12/2022 Office Visit Cardiology Hari Summers MD [facility] [place] [address] Kit Bonilla MD [facility] [address] documented as of this encounter Visit Diagnoses Not on filedocumented in this encounter Care Teams Heel Edge Inker Machine Relationship Specialty Start Date End Date Willam Waite MD PCP - General 03/24/22 6 [place] [address] documented as of this encounter
--- OUTSIDE RECORDS SUMMARY | 2022-07-12 08:55 | XMS_ITS | Encounter Summary ---
:1965 Author Organization [facility] [place] [address] Care Team Providers Name Role Phone Willam Waite MD Primary Care Provider Reason for Visit Reason Onset Date Comments Medical Care Coordination 05/18/2022 Encounter Details Date Type Department Care Team Description 05/18/2022 [facility], Medical Care [facility] [place] [address] Social History Tobacco Use Types Packs/Day [...] Telephone Encounter - Amelia Gupta RN - 05/18/2022 1:47 PM EDT Palliative Care Call Caller: RN to [facility] Lab Reason for Call: Coordination of UDS to be completed on 05/24 Client receiving Oncology care at [facility] [place] [place], which does not have a lab to process UDS orders. Patients of this location get labs drawn at [facility]. This client will be getting other labs drawn on 05/24, and per Criselda Zelaya follow up UDS to be done as well. Call to [facility] Lab, spoke with Brynn. She confirmed this can be done, and orders to be faxed to [phone] (done). Return call to [facility] Lab to confirm they received lab order. No answer, left message requesting call back. Plan of Care: -If no return call from [facility] Lab confirming they received UDS order by 05/20, place additional call ([phone]) Follow up needed? Yes - as above documented in this encounter Plan of Treatment Upcoming Encounters Date Type Specialty Care Team Description 07/14/2022 TH Visit (TeleHealth) Palliative Care Kian Zelaya [facility] ER PALLIATIVE MEDIC [place], [place] [address] (Wo rk) 07/22/2022 TH Visit (TeleHealth) Palliative Care Benoit Lei [facility] PALLIATIVE [place] [address] Criselda Zelaya ALTERNATIVE ENERGY TECHNICIAN [facility] PALLIATIVE [place] [address] 08/12/2022 Office Visit Cardiology Hari Summers MD [facility] [place] [address] Kit Bonilla MD [facility] CARDIOLOGY [place] [address] documented as of this encounter Visit Diagnoses Not on filedocumented in this encounter Care Teams Bladder Blower Relationship Specialty Start Date End Date Willam Waite MD PCP - General 03/24/22 6 [place] [id number] documented as of this encounter
--- OUTSIDE RECORDS SUMMARY | 2022-07-12 08:55 | XMS_ITS | Encounter Summary ---
:1965 Author Organization [facility] [place] [address] Care Team Providers Name Role Phone Willam Waite MD Primary Care Provider Encounter Details Date Type Department Care Team Description 06/02/2022 Telephone Palliative Medicine at [facility] [place] Elizabeth Whitmore, [place] [address] Social History Tobacco Use Types Packs/Day [...] Telephone Encounter - Elizabeth Whitmore RN - 06/02/2022 10:46 AM EDT Attempt to add on Buprenorphine comfirmatory test to UDS obtained on 05/31/2022 at [facility]. I spoke with Kendy in the lab , they are unable to run any additional testing at thistime due to inadequate sample remaining. Confirmed with Kendy that buprenorphine confirmatory that was added on in April (05/17) was also aborted due to inadequate sample. Provider notified documented in this encounter Plan of Treatment Upcoming Encounters Date Type Specialty Care Team Description 07/14/2022 TH Visit (TeleHealth) Palliative Care Kian Zelaya APRN [facility] PALLIATIVE MEDIC [place], [place] [address] (Wo rk) 07/22/2022 TH Visit (TeleHealth) Palliative Care Benoit Lei APRN [facility] [place] [address] Criselda Zelaya APRN [facility] [address] [place] [address] 08/12/2022 Office Visit Cardiology Hari Summers MD [facility] [place] [address] Kit Bonilla MD [facility] [place] [address] documented as of this encounter Visit Diagnoses Not on filedocumented in this encounter Care Teams Behavioral Psychologist Relationship Specialty Start Date End Date Willam Waite MD PCP - General 03/24/22 6 [place] [id number] documented as of this encounter
--- OUTSIDE RECORDS SUMMARY | 2022-07-12 08:55 | XMS_ITS | Encounter Summary ---
:1965 Author Organization [facility] [place] [address] Care Team Providers Name Role Phone Willam Waite MD Primary Care Provider Encounter Details Date Type Department Care Team Description 05/21/2022 Telephone Palliative Medicine at [facility] Amelia Gupta, [place] [address] Social History Tobacco Use Types Packs/Day [...] place to sleep or slept in a retirement (including now)? Sex Assigned at Date Recorded Male 05/04/2022 4:12 PM EDT documented as of this encounter Miscellaneous Notes Telephone Encounter - Amelia Gupta RN - 05/21/2022 1:12 PM EDT Palliative Care Call Caller: RN To [facility] Reason for Call: Confirming that [facility] lab received UDS order faxed on 05/18. Calls x2 to [facility] lab on 05/20- Unable to reach anyone. Left 2 VMs requesting call back. Call to [facility] on 05/21- Unable to reach anyone. Left 1 VM requesting call back to confirm they received UDS order. Awaiting call back at this time. ADDENDUM: Return call from [facility] lab, who confirms they received the UDS order. documented in this encounter Plan of Treatment Upcoming Encounters Date Type Specialty Care Team Description 07/14/2022 TH Visit (TeleHealth) Palliative Care Kian Zelaya APRN [facility] PALLIATIVE MEDIC [place], [place] [address] (Wo rk) 07/22/2022 TH Visit (TeleHealth) Palliative Care Benoit Lei APRN [facility] [place] [address] Criselda Zelaya APRN [facility] [place] [address] 08/12/2022 Office Visit Cardiology Hari Summers MD [place] [address] Kit Bonilla MD [facility] [place] [address] documented as of this encounter Visit Diagnoses Not on filedocumented in this encounter Care Teams Box Estimator Relationship Specialty Start Date End Date Willam Waite MD PCP - General 03/24/22 6 [place] [phone] documented as of this encounter
--- OUTSIDE RECORDS SUMMARY | 2022-07-12 08:55 | XMS_ITS | Encounter Summary ---
:1965 Author Organization [facility] Address [facility] [place] [address] Care Team Providers Name Role Phone Willam Waite MD Primary Care Provider Encounter Details Date Type Department Care Team Description 05/31/2022 Office Visit Hematology/Oncology Tami Horton Mas s of upper lobe of left lung; at [facility] AUTO PORTER Cancer-related pain; [address] [place] [address] Drive [facility] Drug abuse and dependence; [place], [place] [address] [place] [phone] HEMATOLOGY AND [phone] ONCOLOGY [place], [place] [address] Social History Tobacco Use Types [...] place to sleep or slept in a half-way (including now)? Sex Assigned at Date Recorded Male 05/04/2022 4:12 PM EDT documented as of this encounter Last Filed Vital Signs Vital Sign Reading Time Taken Comments Blood Pressure 142/84 05/31/2022 9:56 AM EDT Pulse 78 05/31/2022 9:56 AM EDT Temperature 35.4 ??C (95.8 ??F) 05/31/2022 9:56 AM EDT Respiratory Rate 20 05/31/2022 9:56 AM EDT Oxygen Saturation 98% 05/31/2022 9:56 AM EDT Inhaled Oxygen Concentration - - Weight 82.1 kg (181 lb) 05/31/2022 9:56 AM EDT Height 180.3 cm (5' 10.98) 05/31/2022 9:56 AM EDT Body Mass Index 25.26 05/31/2022 9:56 AM EDT documented in this encounter Progress Notes ForTami garcia APRN - 05/31/2022 8:30 AM EDT Images from the original note were not included. Hematology & Medical Oncology [address] [address] Iban Palomares is a 56 y.o. male being seen for the evaluation of lung cancer. Assessment & Plan Iban Palomares is a 56 y.o. male from [place], [place] with h/o COPD, bipolar affective disorder, [...] worse which prompted ED visit. # NSCLC Start C1D8 Carbo/Taxol with concurrent radiation. Imaging after completion of cycle to evaluate response. - Labs and toxicities assessed and acceptable for treatment today # Pain Currently on suboxone and being managed by palliative care (Criselda Zelaya APRN). Fairly well controlled # H/O substance abuse Start of treatment delayed due to patient [...] is part of agreement to continue treatment. His UDS was negative today for all substances except THC. #transaminitis - AST and ALT elevated today (3-4 times ULN) - total Bili WNL. Will proceed with treatment today and monitor. Asked to limit Acetaminophen to two extra strength 2-3 times a day Routine UDS will be performed. Tami Horton APRN 05/31/2022 [facility] Hematology/Oncology HPI - Interval History Last seen on 05/24/22 Iban comes in today alone. He was dropped off by son in law. He states that he had one dose of Suboxone today - his has control of these meds. He did smoke some marijuana this morning. No nausea Suboxone does help with pain however this relief does not last long. States that he has been taking extra strength tylenol 4-6 at a time (several times daily) Appetite is good - denies any issues with bowels. Wants to move out of his current living situation - has continued to stay with his . No other new issues since last seen. Appetite is fair, no bowel or bladder issues. No fevers, chills. Social History/Support Network Home situation: /[place] reports [...] Place 3 tablets under the tongue daily. 24 tablet 0 ??? LORazepam (Ativan) 1 mg Tablet Take 1 tablet by mouth 3 times daily as needed for Anxiety. 24 tablet 0 ??? gabapentin (NEURONTIN) 600 mg Tablet 600 [...] daily for 30 days. 180 tablet0 ??? naloxone (Narcan) 4 mg/actuation [place], Non-Aerosol 1 each by Nasal route once as needed for up to 1 dose. (Patient not taking: No sig reported) 1 each 0 ??? omeprazole (PriLOSEC) 40 mg Capsule, Delayed Release(E.C.) Take 40 mg by mouth daily. ??? metoprolol succinate XL (Toprol-XL) 25 mg Tablet Sustained Release 24 hr Take 25 mg by mouth daily. ??? divalproex EC (Depakote) 500 mg Tablet, Delayed Release (E.C.) Take 500 mg by mouth 2 times daily. ??? MULTIVITAMIN ORAL Take 1 tablet by mouth daily. ??? acetaminophen (TYLENOL) 325 mg tablet Take 2 tablets by mouth every 4 hours as needed for Pain. 30 tablet ??? albuterol (PROVENTIL HFA;VENTOLIN HFA) 90 mcg/Actuation inhaler Inhale 2 puffs into the lungs every 4 hours as needed. Use with spacer No current facility-administered medications on file prior to visit. Allergies Allergen Reactions ??? Fentanyl Nausea Only ??? Fluoxetine Other reaction(s): Other ??? Xylocaine In Dextrose 7.5 % [Lidocaine In Dextrose 7.5 %] Other (See Comments) Experienced confusion, sensorium changes, muscle cramps while on lidocaine infusion for pain -> infusion had to be discontinued; would avoid systemic lidocaine in the future. Physical Exam BP 142/84 (Patient Position: Sitting) Pulse 78 Temp 35.4 ??C (95.8 ??F) (Temporal) Resp 20 Ht 180.3 cm (5' 10.98) Wt 82.1 kg (181 lb) SpO2 98% BMI 25.26 kg/m?? Wt Readings from Last 3 Encounters: 05/31/22 82.1 kg (181 lb) 05/27/22 81.3 kg (179 lb 4.8 oz) 05/24/22 76.2 kg (168 lb) GENERAL: Thin male appearing in NAD HEENT: Eyes: b/l pupils pinpoint and minimally reactive to light, no conjunctival pallor , no scleral icterus; Sinuses: non-tender; Oropharynx : dry and tongue red - No lesions, No thrush. Poor dentition NECK: supple without cervical adenopathy CARDIOVASCULAR: Heart with regular rate and rhythm without S3,S4 or murmurs. No cyanosis or peripheral edema. PULMONARY: BS diminished b/l with some scattered rhonchi heard. Effort WNL ABDOMEN: Abdomen soft and non-tender. BS normoactive. MUSCULOSKELETAL: Moves and ambulates independently. Tenderness to light palpation cervical spine, upper thoracic spine and left scapula EXTREMITIES: No edema or calf tenderness SKIN: No rashes noted. Scarring noted over forearms b/l. Multiple scabs scattered top of head, arms,hands. No draining open wounds NEURO: Alert and oriented to person, place, time. Speech coherent and clear - more pressured today PSYCH: Is coooperative however more hyperactive/fidgety today. Imaging CT Chest w Contrast (Exam End: [...] emphysema. No pneumothorax or pleural effusions. Labs 05/31/22 WBC 13.17, Hgb 13.3, Plt Ct [...] TH Visit (TeleHealth) Palliative Care Kian Zelaya AUTO PORTER [facility] PALLIATIVE MEDIC [place], [place] [address] (Wo rk) 07/22/2022 TH Visit (TeleHealth) Palliative Care Benoit Lei AUTO PORTER [facility] [place] [address] Criselda Zelaya AUT[employer] PORTER [facility] [place] [address] 08/12/2022 Office Visit Cardiology Hari Summers MD [facility] [place] [address] Kit Bonilla MD [facility] [place] [address] documented as of this encounter Visit Diagnoses Diagnosis Mass of upper lobe of left lung Cancer-related pain Neoplasm related pain (acute) (chronic) Drug abuse and dependence Unspecified drug dependence, unspecified Transaminitis Nonspecific elevation of levels of trans aminase or lactic acid dehydrogenase (LDH) documented in this encounter Care Teams Insecticide Maker Relationship Specialty Start Date End Date Willam Waite MD PCP - General 03/24/22 6 [place] [phone] documented as of this encounter
--- OUTSIDE RECORDS SUMMARY | 2022-07-12 08:55 | XMS_ITS | Encounter Summary ---
:1965 Author Organization [facility] [place] [address] Care Team Providers Name Role Phone Willam Waite MD Primary Care Provider Encounter Details Date Type Department Care Team Description 05/20/2022 Telephone Thoracic Surgery at [facility] [place] [address] Social History Tobacco Use Types Packs/Day [...] place to sleep or slept in a care home (including now)? Sex Assigned at Date Recorded Male 05/04/2022 4:12 PM EDT documented as of this encounter Miscellaneous Notes Telephone Encounter - Rickie Sharif - 05/20/2022 9:19 AM EDT Spoke to patient's . Iban is doing better at home. He is scheduled to start radiation treatmentsthis afternoon and is also working with medical oncology. Cancelled 05/25/[address] Kumari, patient will continue to follow up with med onc/rad onc. documented in this encounter Plan of Treatment Upcoming Encounters Date Type Specialty Care Team Description 07/14/2022 TH Visit (TeleHealth) Palliative Care Kian Zelaya MILK BOTTLER [facility] PALLIATIVE MEDIC [place], [place] [address] (Wo rk) 07/22/2022 TH Visit (TeleHealth) Palliative Care Benoit Lei MILK BOTTLER [facility] [place] [address] Criselda Zelaya MILK BOTTLER [facility] [place] [address] 08/12/2022 Office Visit Cardiology Hari Summers MD [facility] [place] [address] Kit Bonilla MD [facility] [place] [address] documented as of this encounter Visit Diagnoses Not on filedocumented in this encounter Care Teams Rounding And Backing Machine Operator Relationship Specialty Start Date End Date Willam Waite MD PCP - General 03/24/22 [address] [place] [phone] documented as of this encounter
--- OUTSIDE RECORDS SUMMARY | 2022-07-12 08:55 | XMS_ITS | Encounter Summary ---
:1965 Author Organization [facility] [place] [address] Care Team Providers Name Role Phone Willam Waite MD Primary Care Provider Encounter Details Date Type Department Care Team Description 05/20/2022 [facility] [address] [phone] Social History Tobacco Use Types [...] this encounter Miscellaneous Notes Telephone Encounter - Halle Horta - 05/20/2022 11:14 AM EDT I called Iban back as we had spoken prior to this about his radiation start time and I was in correct about it he was being rescheduled. So I called him back to confirm his Radiation Start time for 05/24/22 at 4pm. He confirmed this. documented in this encounter Plan of Treatment Upcoming Encounters Date Type Specialty Care Team Description 07/14/2022 TH Visit (TeleHealth) Palliative Care Kian Zelaya GOLF BALL MOLDER [facility] PALLIATIVE MEDIC [place], [place] [address] (Wo rk) 07/22/2022 TH Visit (TeleHealth) Palliative Care Benoit Lei GOLF BALL MOLDER [facility] [place] [address] Criselda Zelaya GOLF BALL MOLDER [facility] [place] [address] 08/12/2022 Office Visit Cardiology Hari Summers MD [facility] [place] [address] Kit Bonilla MD [facility] [place] [address] documented as of this encounter Visit Diagnoses Not on filedocumented in this encounter Care Teams Ground School Instructor Relationship Specialty Start Date End Date Willam Waite MD PCP - General 03/24/22 6 [place] [address] documented as of this encounter
--- OUTSIDE RECORDS SUMMARY | 2022-07-12 08:55 | XMS_ITS | Encounter Summary ---
:1965 Author Organization [place] [place] [address] Care Team Providers Name Role Phone Willam Waite MD Primary Care Provider Encounter Details Date Type Department Care Team Description 05/17/2022 Orders Only Palliative Medicine at Criselda Zelaya, Substance use disorder [facility] SUPERVISOR CASE LOADING On license [place] [facility] [place] [address] PALLIATIVE [phone] MEDICINE [place], [place] [address] Social History Tobacco Use Types [...] TH Visit (TeleHealth) Palliative Care Kian Zelaya SUPERVISOR CASE LOADING [facility] ER PALLIATIVE MEDIC [place], [place] [address] (Wo rk) 07/22/2022 TH Visit (TeleHealth) Palliative Care Benoit Lei SUPERVISOR CASE LOADING [facility] P[place] [address] Criselda Zelaya SUPERVISOR CASE LOADING [facility] P[place] [address] 08/12/2022 Office Visit Cardiology Hari Summers MD [facility] [place] [address] Kit Bonilla MD [facility] [place] [address] Scheduled Orders Name Type Priority Associated Diagnoses Order S chedule Rapid Drug Screen, Lab Routine Substance use disorder Expected: 05/17/2022, Urine (AKIRA Request) Expires: 11/16/2022 documented as of this encounter Visit Diagnoses Diagnosis Substance use disorder documented in this encounter Care Teams Yard Coupler Relationship Specialty Start Date End Date Willam Waite MD PCP - General 03/24/22 6 [place] [address] documented as of this encounter
--- OUTSIDE RECORDS SUMMARY | 2022-07-12 08:55 | XMS_ITS | Encounter Summary ---
:1965 Author Organization [facility] [place] [address] Care Team Providers Name Role Phone Willam Waite MD Primary Care Provider Encounter Details Date Type Department Care Team Description 05/20/2022 Telephone [facility] [address] [place] [phone] Social History Tobacco Use Types [...] this encounter Miscellaneous Notes Telephone Encounter - Clau Monet RN - 05/20/2022 11:10 AM EDT Telephone call to Mr. Palomares and his Ines with update on plan to start concurrent chemotherapy+ radiation. Instructed that he will not start XRT this week. Plan is to start treatment on Thursday 05/24 as follows: 0830 - labs at [facility] 0930 - Appt with Vandana Horton APRN with chemotherapy to follow. Radiation therapy to follow chemotherapy. -Tuesday - radiation therapy. Ines also asked about when Mr. Palomares should take his buprenorphine (Subutex) 8 mg - if he should take before his appts or wait until after his appts. Advised that he should stay on schedule as best as he can in regards to taking it. Both Mr. Palomares and his verbalized agreement and understanding of upcoming planned start date/times for Thursday 05/24. documented in this encounter Plan of Treatment Upcoming Encounters Date Type Specialty Care Team Description 07/14/2022 TH Visit (TeleHealth) Palliative Care Kian Zelaya APRN [facility] PALLIATIVE MEDIC [place], [place] [address] (Wo rk) 07/22/2022 TH Visit (TeleHealth) Palliative Care Benoit Lei PLATE SHEAR OPERATOR [facility] [place] [address] Criselda Zelaya PLATE SHEAR OPERATOR [facility] [place] [address] 08/12/2022 Office Visit Cardiology Hari Summers MD [facility] [place] [address] Kit Bonilla MD [facility] [address] documented as of this encounter Visit Diagnoses Not on filedocumented in this encounter Care Teams Lead Javascript Developer Relationship Specialty Start Date End Date Willam Waite MD PCP - General 03/24/22 6 [place] [phone] documented as of this encounter
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
--- OUTSIDE RECORDS SUMMARY | 2022-07-12 08:55 | XMS_ITS | Encounter Summary ---
:1965 Author Organization [facility] Address [address] [place] [address] Care Team Providers Name Role Phone Willam Waite MD Primary Care Provider Reason for Visit Reason Onset Date Comments Medication Problem 05/15/2022 Iban stated that he wanted assistance in prescribing his medications so t hat he can have them. Reporting that has his me dications and he is at his sister's house up the road an d wants his mediations from her because she is craz y. Stated that he wanted to call the police to help h im get his meds. Reported last taking his night med s when his came to give them to him at his sister 's house. Encounter Details Date Type Department Care Team Description 05/15/2022 Telephone Pallative Medicine Carlota Man S, Medication Problem [facility] RESEARCH & ANALYTICS MANAGER (Iban stated that he Drive [facility] [place] [address] [address] [address] prescribing his [phone] PALLIATIVE MEDIC INE medications so that he [place], [place] [address] can have them. [phone] (Wo rk) Reporting that has his medic ations and he is at his siste r's house up the [place] and wants his media tions from her becaus e she is crazy. Stated that he wanted to call the police to help him get his meds. Repor castro last taking his nigh t meds when his c bertha to give them to joseph taylor at his sister's house. ) Social History Tobacco Use Types Packs/Day Years Used Date Current Every Day Smoker Cigarettes 1 40 Smokeless Tobacco: Never Used Comments: 6 cigs daily Alcohol Use Standard Drinks/Week Comments No 0 (1 standard drink = 0.6 oz pure alcoho l) May 02, 2011 sober date Alcohol Habits Answer Date Recorded How often do you have a drink containing Not asked alcohol? How many drinks containing alcohol do you have Not asked on a typical day when you are drinking? How often do you have six or more drinks on Not asked one occasion? Comment: May 02, 2011 sober date 12/08/2011 Financial Resource Strain Answer Date Recorded How [...] this encounter Miscellaneous Notes Telephone Encounter - Carlota Man, SREEDHAR - 05/15/2022 7:15 AM EDT Palliative Care Telephone Note Iban Palomares is a 56 y.o. male with newly diagnosed pancoast tumor and co- morbid bi-polar 1 disorder and substance use disorder known and followed by the palliative care team. He was recently hospitalized 05/04-05/12 r/t left shoulder pain related to his cancer. He has been continued on Suboxone for his pain and ISABELLA. Pt's and daughter have been in contact with our team in attempting to support Iban despite erratic behavior. Concern for street drug use versus infection causing him to wander out of the house andspeak irrationally. Iban called palliative care this morning stating that he wanted assistance in getting his medications from his and threatening to call the police. Iban stated that he is staying at his sister's home a few miles up the road from his 's home. Hestated that his had come last night and brought him all of his medications. Able to remember taking gabapentin, Suboxone, ativan and clonidine. Stated that his pain remains the same in my left shoulder from the softball in my chest. Stated that he did not have any other new symptoms. Denied using any other substances overnight. Did not clarify what if any he has taken before. He reported frustration in having his bring him his medications and wanting to involve the police because she is crazy and that she did not answer the phone this morning. Provided listening, aligned with goal that Iban continue to get his medications on time to help him stay well and not need other meds and that I would attempt to call his /family to assess the planand call him back. He reported appreciation with this. Attempted to call spouse Ines x2 without answer. Message left. Call to pt's daughter Ever who stated that she had talked to her dad at 5am when he called for his meds and that she was on her way up to bring them to him at the time of my call. She verbalized plan to continue to assist with her mother to deliver meds around the clock at his family's homes as well as encourage him to go to the hospital for UA/UDS per yesterday's plan. I attempted to call Iban back x2 without answer. Message left to update him/assure him of plan for his meds to be delivered on time as well as encouragement to get evaluated for possible infection versus medication toxicity. Plan: Continue to support pt to work with his established care partners - and daughter to have prescribed medications specifically Suboxone in order to avoid need for street drugs. Suspect that use of street methamphetamine may have been used on 05/13 due to erratic behavior yesterday reported by family and now seeming to have returned to baseline behavior. Thus less suspicion forinfection, however it is still possible. Recommended consideration to go to hospital to evaluate urine for toxic metabolites versus UTI. Continue Suboxone 24mg in divided doses for pain and cravings. Will route to Criselda Zelaya APRN -outpt palliative care provider. Carlota Man APRN Palliative care team pager [phone] documented in this encounter Plan of Treatment Upcoming Encounters Date Type Specialty Care Team Description 07/14/2022 TH Visit (TeleHealth) Palliative Care Kian Zelaya APRN [facility] PALLIATIVE MEDIC [place], [place] [address] (Wo rk) 07/22/2022 TH Visit (TeleHealth) Palliative Care Benoit Lei [facility] [address] Criselda Zelaya RESEARCH & ANALYTICS MANAGER [facility] [place] [address] 08/12/2022 Office Visit Cardiology Hari [place] MD [facility] [place] [address] Kit Bonilla MD [facility] [place] [address] documented as of this encounter Visit Diagnoses Not on filedocumented in this encounter Care Teams Tree Thinner Relationship Specialty Start Date End Date Willam [place] MD PCP - General 03/24/22 6 [place] [id number] documented as of this encounter
--- OUTSIDE RECORDS SUMMARY | 2022-07-12 08:55 | XMS_ITS | Encounter Summary ---
:1965 Author Organization [facility] [place] [address] Care Team Providers Name Role Phone Willam Waite MD Primary Care Provider Reason for Visit Reason Onset Date Comments Other 06/01/2022 Transportation plan Encounter Details Date Type Department Care Team Description 06/01/2022 Telephone Radiation Oncology at ClaudioRadha ramos, Jim er (Transportation [facility] plan) [address] OFFICE OF CARE [place], [place] MANAGEMENT [address] Social History Tobacco Use Types Packs/Day [...] 12 months, you worried that your food Renettati mes true 04/21/2022 would run out before [...] place to sleep or slept in a skilled nursing (including now)? Sex Assigned at Date Recorded Male 05/04/2022 4:12 PM EDT documented as of this encounter Miscellaneous Notes Telephone Encounter - Radha Jasmine MSW - 06/01/2022 8:28 AM EDT Transportation Plan Review Transportation service provider: MARKO @ [phone] Person coordinating transportation: Radha Jasmine, @ [phone] Transportation request submitted to service provider: yes per pt's request for his concurrent treatment schedule. 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 Reviewed/matched transportation request with appointment schedule: yes Patient has contact information to transportation provider: yes and has number to [facility] Actions taken today: reviewed schedule submitted to [facility] yesterday SW Interventions: Care Coordination Transportation resources documented in this encounter Plan of Treatment Upcoming Encounters Date Type Specialty Care Team Description 07/14/2022 TH Visit (TeleHealth) Palliative Care Kian Zelaya APRN [facility] PALLIATIVE MEDIC [place], [place] [address] (Wo rk) 07/22/2022 TH Visit (TeleHealth) Palliative Care Benoit Lei APRN [facility] [place] [address] Criselda Zelaya SALES ACCOUNT ASSOCIATE [facility] [place] [address] 08/12/2022 Office Visit Cardiology Hari [place] MD [facility] [place] [address] Kit Bonilla MD [facility] [place] [address] documented as of this encounter Visit Diagnoses Not on filedocumented in this encounter Care Teams Force Adjustment Supervisor Relationship Specialty Start Date End Date Willam Wa[place] MD PCP - General 03/24/22 6 [place] [phone] documented as of this encounter
--- OUTSIDE RECORDS SUMMARY | 2022-07-12 08:55 | XMS_ITS | Encounter Summary ---
:1965 Author Organization [facility] [place] [address] Care Team Providers Name Role Phone Willam Waite MD Primary Care Provider Encounter Details Date Type Department Care Team Description 05/18/2022 Telephone Palliative Medicine at [facility] Amelia Gupta, [place] [address] Social History Tobacco Use Types Packs/Day [...] Encounter - Amelia Gupta RN - 05/18/2022 12:16 PM EDT Palliative Care Call Caller: RN to Pharmacy Reason for Call: Discuss prescription costs Call to [facility] to assess Suboxone Costs (Per Provider, client paid $150 for last week's supply of Suboxone). Spoke with pharmacy staff. They confirm that Suboxone Rx received on 05/17 is going to cost $164.19. This is being processed through insurance ([employer] Part D), which only took a few dollars off OOP [place].Client has large deductible ($100,000+), which this cost is going towards. With two different discount cards, the cost is as follows: -GoodRx: $126.44 -PrescriptionSavers: $153.00 Reviewed the above with Bria ELI. Test Subutex prescription sent for #90 tabs to assess cost, spoke with Dru at [facility], who confirms that would cost client $12 dollars. He confirmed they have Sututex 8mg in stock. Criselda Zelaya Prescribed #[address] [facility]. Call to Dru to cancel: 1- Suboxone prescription sent 7/25, and 2- The Rx for #90 Subutex. He confirmed those have been cancelled. He stated that due to Subutex Rx directing to take #3 tabs daily, it would be simpler to dispense #27 tabs rather than #28. This reviewed with Criselda Zelaya, who agrees with dispensing #27 (New Rx not needed, they could take verbal from [facility]). Plan of Care: -Rotating from Suboxone to Subutex due to cost per Criselda Zelaya (please see her note dated 05/18 for details, as she called client's care partners to provide medication education and instructions). Follow up needed? No documented in this encounter Plan of Treatment Upcoming Encounters Date Type Specialty Care Team Description 07/14/2022 TH Visit (TeleHealth) Palliative Care Kian Zelaya [facility] PALLIATIVE MEDIC [place], [place] [address] (Wo rk) 07/22/2022 TH Visit (TeleHealth) Palliative Care Benoit Lei [facility] [place] [address] Criselda Zelaya [facility] [place] [address] 08/12/2022 Office Visit Cardiology Hari [place] MD [facility] [place] [address] Kit Bonilla MD [facility] [place] [address] documented as of this encounter Visit Diagnoses Not on filedocumented in this encounter Care Teams Globe Cleaner Relationship Specialty Start Date End Date Willam Waite MD PCP - General 03/24/22 6 [place] [phone] documented as of this encounter
--- OUTSIDE RECORDS SUMMARY | 2022-07-12 08:55 | XMS_ITS | Encounter Summary ---
:1965 Author Organization [facility] [place] [address] Care Team Providers Name Role Phone Willam Waite MD Primary Care Provider Encounter Details Date Type Department Care Team Description 05/18/2022 Orders Only Palliative Medicine at Criselda Zelaya, Substance use disorder [facility] GREENHOUSE ASSISTANT [facility] [place] [address] PALLIATIVE [phone] MEDICINE [place], [place] [address] Social History Tobacco Use Types [...] TH Visit (TeleHealth) Palliative Care Kian Zelaya GREENHOUSE ASSISTANT [facility] PALLIATIVE MEDIC [place], [place] [address] (Wo rk) 07/22/2022 TH Visit (TeleHealth) Palliative Care Benoit Lei GREENHOUSE ASSISTANT [facility] [place] [address] Criselda Zelaya GREENHOUSE ASSISTANT [facility] [place] [address] 08/12/2022 Office Visit Cardiology Hari [place] MD [facility] [place] [address] Kit Bonilla MD [facility] [place] [address] Scheduled Orders Name Type Priority Associated Diagnoses Order S chedule Rapid Drug Screen, Lab Routine Substance use disorder Expected: 05/24/2022, Urine (AKIRA Request) Expires: 11/23/2022 documented as of this encounter Visit Diagnoses Diagnosis Substance use disorder documented in this encounter Care Teams Self Defense Instructor Relationship Specialty Start Date End Date Willam Waite MD PCP - General 03/24/22 6 [place] [address] documented as of this encounter
--- OUTSIDE RECORDS SUMMARY | 2022-07-12 08:55 | XMS_ITS | Encounter Summary ---
:1965 Author Organization [facility] [address] Care Team Providers Name Role Phone Willam Waite MD Primary Care Provider Encounter Details Date Type Department Care Team Description 05/19/2022 Telephone Palliative Medicine [place] [facility] Criselda Zelaya APR[place] [facility] [place] [address] PALLIATIVE MEDICINE [phone] [place], [place] [address] (Wo rk) Social History Tobacco [...] encounter Miscellaneous Notes Telephone Encounter - Criselda Zelaya APRN - 05/19/2022 12:06 PM EDT Call to Ines to assess Iban's current status. Left a voice message Also reached out to Ever Combs - she has not seen her father. He reached out by phone last night but was not coherent. Ever offered to bring him his medications but he hung up. They have tracked his phone to [place], but then he shut his phone off. At this point, the last time he received medications from Ines or Ever was 05/18/2022 at 530 a.m. Asked Ever and left a message with Ines to reach out to the palliative care team with any updates. Criselda Zelaya, SREEDHAR 1500 - call to Ever as Iban returned home and wants to be involved in his care. Advised her to decrease dexamethasone to 8 mg daily as I worry that the extra 4 mg in the late afternoon dexamethasonemay cause increased agitation. I have also advised them to confirm appt tomorrow at [facility] If they plan to make the appointment (please see Elizabeth Whitmore RN note for more details. Criselda Zelaya APRN documented in this encounter Plan of Treatment Upcoming Encounters Date Type Specialty Care Team Description 07/14/2022 TH Visit (TeleHealth) Palliative Care Kian Zelaya APRN [facility] PALLIATIVE MEDIC [place], [place] [address] (Wo rk) 07/22/2022 TH Visit (TeleHealth) Palliative Care Benoit Lei SUPERINTENDENT TERMIN[employer] [facility] [place] [address] Criselda Zelaya APRN [facility] [place] [address] 08/12/2022 Office Visit Cardiology Hari [place] MD [facility] [place] [address] Kit Bonilla MD [facility] [place] [address] documented as of this encounter Visit Diagnoses Not on filedocumented in this encounter Care Teams Pearl Hand Relationship Specialty Start Date End Date Willam Wa[place] MD PCP - General 03/24/22 6 [place] [phone] documented as of this encounter
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
--- OUTSIDE RECORDS SUMMARY | 2022-07-12 08:55 | XMS_ITS | Encounter Summary ---
:1965 Author Organization [facility] [place] [address] Care Team Providers Name Role Phone Willam Waite MD Primary Care Provider Encounter Details Date Type Department Care Team Description 05/21/2022 Telephone Palliative Medicine at [facility] Elizabeth Whitmore, [place] [address] Social History Tobacco Use Types Packs/Day [...] place to sleep or slept in a longterm (including now)? Sex Assigned at Date Recorded Male 05/04/2022 4:12 PM EDT documented as of this encounter Miscellaneous Notes Telephone Encounter - Elizabeth Whitmore RN - 05/21/2022 9:46 AM EDT Palliative Care Call Caller: Ines, patient spouse Reason for Call: Ines called to notify the medical team that Iban was arrested last night. The police took his medications including his controlled substances with him to halfway so that they could be administered when in halfway. When Iban is released the medications will be released with Iban, his and daughter will no longer have management over the medications unless Iban were to give them back to her to lock up. Ines wanted the medical team to have this information, she did not request a call back. Follow up needed? No changes to currently scheduled follow up plan. documented in this encounter Plan of Treatment Upcoming Encounters Date Type Specialty Care Team Description 07/14/2022 Visit (TeleHealth) Palliative Care Kian Zelaya APRN [facility] PALLIATIVE [place] [address] (Wo rk) 07/22/2022 Visit (TeleHealth) Palliative Care Benoit Lei APRN [facility] [place] [address] Criselda Zelaya RAW STOCK DYEING MACHINE TENDER [facility] [place] [address] 08/12/2022 Office Visit Cardiology Hari Summers MD [facility] [place] [address] Kit Bonilla MD [facility] [place] [address] documented as of this encounter Visit Diagnoses Not on filedocumented in this encounter Care Teams Medical Record Coder Relationship Specialty Start Date End Date Willam Waite MD PCP - General 03/24/22 6 [place] [address] documented as of this encounter
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
--- OUTSIDE RECORDS SUMMARY | 2022-07-12 08:55 | XMS_ITS | Encounter Summary ---
:1965 Author Organization [facility] Address [address] [place] [address] Care Team Providers Name Role Phone Willam Waite MD Primary Care Provider Reason for Visit Reason Onset Date Comments Follow-up 05/26/2022 Folow up first time chemotherapy on 05/24/22 Encounter Details Date Type Department Care Team Description 05/26/2022 Telephone Hematology Oncology at [facility], Follow-up (Folow up [facility] first time chemotherapy [address] on 05/24/22) [place] [id number] Social History Tobacco Use Types Packs/Day Years [...] this encounter Miscellaneous Notes Telephone Encounter - Ashley Wilson RN - 05/27/2022 9:45 AM EDT I spoke to Iban in person on 05/26/22 when he came in for radiation treatment. He states he is fatigued but otherwise doing OK. His bowels and bladder are functioning normally. He did not experience any nausea. He continues to c/o left arm referred pain from tumor. He is aware of his next chemotherapy day on 05/31/22 with labs required. documented in this encounter Plan of Treatment Upcoming Encounters Date Type Specialty Care Team Description 07/14/2022 Visit (TeleHealth) Palliative Care Kian Zelaya APRN [facility] PALLIATIVE MEDIC [place], [place] [address] (Wo rk) 07/22/2022 Visit (TeleHealth) Palliative Care Benoit Lei APRN [facility] [place] [address] Criselda Zelaya APRN [facility] [place] [address] 08/12/2022 Office Visit Cardiology Hari Summers MD [facility] [place] [address] Kit Bonilla MD [facility] [place] [address] documented as of this encounter Visit Diagnoses Not on filedocumented in this encounter Care Teams Recreation Facility Attendant Relationship Specialty Start Date End Date Willam Waite MD PCP - General 03/24/22 6 [place] [address] documented as of this encounter
--- OUTSIDE RECORDS SUMMARY | 2022-07-12 08:55 | XMS_ITS | Encounter Summary ---
:1965 Author Organization [facility] [place] [address] Care Team Providers Name Role Phone Willam Waite MD Primary Care Provider Encounter Details Date Type Department Care Team Description 05/28/2022 Tele[address] [facility] Elizabeth Whitmore, [place] [address] Social History Tobacco Use Types Packs/Day [...] Telephone Encounter - Elizabeth Whitmore RN - 05/28/2022 1:22 PM EDT Palliative Care Call Caller: RN to patient spouse Chacon Reason for Call: RN call per request of provider, Criselda Zelaya APRN, to follow up on symptom management with re-starting Lorazepam. Symptom Review: agitation Reviewed potential paradoxical side effects that may surface with re-starting lorazepam. Explained that when starting the lorazepam again if he becomes more agitated rather than less that this is what we call a paradoxical side effect and lorazepam should be discontinued. Patient/responsible caregiver able to read back instructions/plan of care? Yes, Chacon verbalized understanding when she stated so if he becomes more agitated than he already is, we shouldn't give him any more and call you. I confirmed this plan and verified they have our contact information. She denied further questions or concerns at this time. Follow up needed?No changes to currently scheduled follow up plan. documented in this encounter Plan of Treatment Upcoming Encounters Date Type Specialty Care Team Description 07/14/2022 TH Visit (TeleHealth) Palliative Care Kian Zelaya APRN [facility] PALLIATIVE MEDIC [place], [place] [address] (Wo rk) 07/22/2022 TH Visit (TeleHealth) Palliative Care Benoit Lei, [facility] [place] [address] Criselda Zelaya, [facility] [place] [address] 08/12/2022 Office Visit Cardiology Hari Summers MD [facility] [address] Kit Bonilla MD [facility] [address] documented as of this encounter Visit Diagnoses Not on filedocumented in this encounter Care Teams Investigation Specialist Relationship Specialty Start Date End Date Willam Waite MD PCP - General 03/24/22 6 [place] [address] documented as of this encounter
--- OUTSIDE RECORDS SUMMARY | 2022-07-12 08:55 | XMS_ITS | Encounter Summary ---
:1965 Author Organization [facility] [place] [address] Care Team Providers Name Role Phone Willam Waite MD Primary Care Provider Encounter Details Date Type Department Care Team Description 05/27/2022 Office Visit Radiation Oncology at [facility], [facility] malignant [facility] neoplasm of bronchus [address] of left upper lobe [place], [place] RADIATION ONCOL OGY [address] [place], [place] [phone] (Wo rk) Social History Tobacco Use Types [...] Sign Reading Time Taken Comments Blood Pressure 161/90 05/27/2022 3:50 PM EDT Pulse 86 05/27/2022 3:50 PM EDT Temperature - - Respiratory Rate 20 05/27/2022 3:50 PM EDT Oxygen Saturation 99% 05/27/2022 3:50 PM EDT Inhaled Oxygen Concentration - - Weight 81.3 kg (179 lb 4.8 oz) 05/27/2022 3:50 PM EDT Height 180.3 cm (5' 10.98) 05/27/2022 3:50 PM EDT Body Mass Index 25.02 05/27/2022 3:50 PM EDT documented in this encounter Progress Notes Rhea Owusu MD - 05/27/2022 3:30 PM EDT ON TREATMENT VISIT NOTE Iban Palomares is a 56 y.o. male with NSCLC Current treatment dose: 8 Gy in 4 fractions. Anticipated total dose: 60 Gy in 30 fractions. Concomitant Therapy: Weekly carboplatin/paclitaxel Evaluation of Port Verification Films: PORT films have been reviewed, please see ARIA for details. Changes in medical condition Pain: 06/02 check and neck pain, unchanged. Heaviness in chest since the start of treatment. Pain similar to when he was first diagnosed with lung cancer Dyspnea/Cough: Unchanged cough. Some increased SOB in the morning- had inhalers Esophagitis: No esophagitis Nutrition Assessment: Weight : 72.6kg initial Change: NA Objective: Vitals: 05/27/22 1550 BP: 161/90 Patient Position: Sitting Pulse: 86 Resp: 20 TempSrc: Temporal SpO2: 99% Weight: 81.3 kg (179 lb 4.8 oz) Height: 180.3 cm (5' 10.98) Resting comfortably, NAD Assessment: No toxicity, treatment started within the last week. CTCAE TOXICITY GRADES (see below for clark): Site Grade Skin 0 Cough 0 Dyspnea 0 Esophagitis 0 TREATMENT RESPONSE: No change Plan: ?? Continue RT per prescription ?? Skin: None ?? Pain control: no intervention needed at this time ?? Esophagitis: no intervention needed at this time ?? Cough/Dyspnea: No intervention needed at this time ?? Alimentation: followed by code official, weight stable, all by mouth CTCAE v4.03 scales for reference Skin 0 [...] indicated Life threatening consequences; urgent intervention indicated I have seen the patient in person, reviewed and edited the resident's above history and I agree withthe details as written. The assessment and plan were formulated in discussion with me and I agree with them as documented. Pertinent History: Patient stable. Pertinent Exam: Appears well, in no distress. Major issues addressed: Assess for toxic effects of radiation therapy and whether to continue. Assessment / Plan: Iban is tolerating treating as expected. No significant toxicity noted other thanthose described above. Continue RT without changes. documented in this encounter Plan of Treatment Upcoming Encounters Date Type Specialty Care Team Description 07/14/2022 TH Visit (TeleHealth) Palliative Care Kian Zelaya 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
--- OUTSIDE RECORDS SUMMARY | 2022-07-12 08:55 | XMS_ITS | Encounter Summary ---
:1965 Author Organization [place] [place] [address] Care Team Providers Name Role Phone Willam Waite MD Primary Care Provider Encounter Details Date Type Department Care Team Description 05/24/2022 Notes Only [facility] OFFICE OF CARE [address] [place] [address] [phone] Social History Tobacco Use Types Packs/Day Years [...] documented as of this encounter Progress Notes Radha Jasmine, ARMEN - 05/24/2022 11:15 AM EDT Reason for Referral: Brief assessment of social and emotional needs. Met with pt and during pt's first infusion visit today to introduce myself and role of social service liaison to assess/address barriersto getting to and through treatments; address support needs and connect with community services and resources as needed. Met with separately while pt getting infusion started. Only introduced selfto pt once his infusion began. Will follow up next infusion for further discussion. Reviewed recent notes from team and Palliative Care. Family/Social Supports: /Chacon reports she and pt have been 26 years. They have one daughter together, Ever, who is a primary support. Both pt and have other children. indicated pt's nephew has been involved but shared concerns about his influence on pt. indicated pt doeshave some good people who want to help if he will let them. indicated she has some good friendswho are supports/resources to her. Living Situation/Daily Activities/Transportation: indicated she has her own apartment. She shared pt has been couch surfing by his choice. Her home is an option for pt if he follows his treatment regime and stays away from other drugs and people associated with this. He will be going home with her after his infusion today. Ines does not expect any issues with transportation. Her car is getting repaired. Others have offered their vehicles or helped with rides. Tobacco/drug/alcohol history: Ines shared pt has had issues with alcohol since the age of 17 and then other drugs since the age of 21. He is followed by Palliative Care services at [facility] re his substance use. Work/Finances/Insurance: Pt is disabled and his income comes from . Ines is his rep payee for this income. He has [facility] Managed Medicare for insurance. Ines did not indicate any financial or insurance concerns at this time. Advance Directives: Did not discuss Utilization of Community Resources: Did provide information re [employer] service to Ines. Sole/Spirtuality: Ines shared she has a strong sense of sole which helps her during challenging times. Adjustment to Illness/Mental Health Concerns: Ines shared some of their history re the challenges of pt's substance use and impact on all of them. She feels she has a good support system. Need to assess further how pt coping. He just indicated he is going to follow the plan. Identified Needs: Need to assess further. Referrals: None at this time. Social Work Interventions :Brief assessment Supportive Counseling Plan: Informed pt of SPECIAL EDUCATION RESOURCE ROOM TEACHER availability and contact information. Will follow to assess/address psychosocial needs. ARMEN Guajardo, SERVICE PROMOTER SALESPERSON, OSW-C [employer] [facility] documented in this encounter Plan of Treatment Upcoming Encounters Date Type Specialty Care Team Description 07/14/2022 TH Visit (TeleHealth) Palliative Care Kian Zelaya APRN [facility] PALLIATIVE MEDIC [place], [place] [address] (Wo rk) 07/22/2022 TH Visit (TeleHealth) Palliative Care Benoit Lei APRN [facility] [address] Criselda Zelaya APRN [facility] [place] [address] 08/12/2022 Office Visit Cardiology Hari Summers MD [facility] [place] [address] Kit Bonilla MD [facility] [place] [address] documented as of this encounter Visit Diagnoses Not on filedocumented in this encounter Care Teams Mri Technician Relationship Specialty Start Date End Date Willam Waite MD PCP - General 03/24/22 6 [place] [address] documented as of this encounter
--- OUTSIDE RECORDS SUMMARY | 2022-07-12 08:55 | XMS_ITS | Encounter Summary ---
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 Kanu Ash MD [facility] Hem Onc Office Procedures TC PALONOSETRON HCL, 25MCG, INJECTION (ALOXI) TC PACLITAXEL, 1MG, INJ TC CARBOPLATIN, 50MG, INJECTION (PARAPLATIN) J2469 Aloxi 0.25 MG - NR [id number] Taxol [id number] CARBOplatin (Paraplatin) [address] HEMATOLOGY/ONCOLOGY DEPT [place], [place] [phone] Fax: Referral ID Status Reason Start Date Expiration Date Visits V isits Requested Authorized [id number] 05/10/2022 11/10/2022 99 99 Encounter Details Date Type Department Care Team Description 05/31/2022 Infusion Hematology Oncology at [facility] malignant neoplasm [facility] of bronchus of left upper [address] [place] [address] [phone] Social History Tobacco Use Types [...] documented as of this encounter Progress Notes Clau Monet RN - 05/31/2022 9:00 AM EDT INFUSION THERAPY ADMINISTRATION NOTES DIAGNOSIS: NSCLC CYCLE #: 1 Day 8 REASON FOR VISIT: Paclitaxel & Carboplatin chemotherapy SUBJECTIVE Mr. Palomares is here for C1D8 chemotherapy being given concurrently with radiation therapy. He saw Vandana Horton APRN prior to his infusion appt. He is tolerating therapy, has no questions/concerns and is ready for treatment today. Patient reports to me that he is taking Extra Strength Tylenol 4-6 tablets 2-3 times per day. Instructed patient that he should only take 2 extra strength Tylenol every 6-8 hours (up to 3x per day) fora maximum of 3000mg (6 tablets) per day. OBJECTIVE LAB DATA: Labs drawn today at [facility]. Reviewed and found adequate for treatment today. Wbc 13.17, hgb 13.3, plts 289k, anc 12.10 Creatinine 0.8 AST 109, ALT 188, T Bili 0.4 L. GhanshyamradhaSREEDHAR wishes to proceed with chemotherapy today despite elevated LFTs. Pre administration: Chemotherapy orders independently verified for drug name, route, and dosage per patient's height, weight and BSA by Conrad Monet RN and pharmacist on-site. REACTIONS (DESCRIPTION, TIME, INTERVENTION AND EFFECTIVENESS) none ASSESSMENT Mr. Palomares was somnolent throughout chemotherapy today but easily arousable. He tolerated treatment without issues. PLAN Return to clinic daily for XRT and in one week for consideration of C1D15. Patient was reminded to call in the interim with any questions/concerns. documented in this encounter Plan of Treatment Upcoming Encounters Date Type Specialty Care Team Description 07/14/2022 TH Visit (TeleHealth) Palliative Care Kian Zelaya [facility] PALLIATIVE MEDIC [place], [place] 0375 (Wo rk) 07/22/2022 TH Visit (TeleHealth) Palliative Care Benoit Lei [facility] [place] [place] [address] Criselda Zelaya [facility] [place] [address] 08/12/2022 Office Visit Cardiology Hari Summers MD [facility] [place] [address] Kit Bonilla MD [facility] [place] [address] documented as of this encounter Visit Diagnoses Diagnosis 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 Malignant neoplasm of upper lobe, bronch us or lung documented in this encounter Administered Medications Inactive Administered Medications - up to 3 most recent administrations Medication Order MAR Action Action Date Dose Rate Site CARBOplatin (Paraplatin) 300 New Bag 05/31/2022 12:57 PM EDT 300 m g 560 mL/hr mg in dextrose 5% 280 mL infusion 300 mg (Target AUC = 2), Intravenous, ONCE, 1 dose, On Tue05/31/22 at 1200, Administer over 30 Minutes, Warning Vesicant/Irritant Medication dexAMETHasone (Decadron) tablet 4 mg Given 05/31/2022 10:57 AM EDT 4 mg 4 mg, Oral, ONCE, 1 dose, On Tue05/31/22 at 1100, Administer 30 minutes prior to PACLitaxel., Routine diphenhydrAMINE (Benadryl) capsule 50 mg Given 05/31/2022 10:57 AM EDT 50 mg 50 mg, Oral, ONCE, 1 dose, On Tue05/31/22 at 1100, Administer 30 minutes prior to PACLitaxel., Routine famotidine (Pepcid) (10 mg/mL) injection 20 Given 05/31/2022 10:58 AM EDT 20 mg mg 20 mg, Intravenous, ONCE, 1 dose, On Tue05/31/22 at 1100, Administer 30 minutes prior to PACLitaxel. PACLitaxeL (Taxol) 102 mg in New Bag 05/31/2022 11:41 AM EDT 102 m g 267 mL/hr sodium chloride 0.9% Non-PVC 267 mL infusion 102 mg (rounded from 101.5 mg = 50 mg/m2/dose ? 2.03 m2 Treatment Plan BSA from Recorded weight), Intravenous, ONCE, 1 dose, On Tue05/31/22 at 1200, Administer over 60 Minutes, Warning Vesicant/Irritant Medication palonosetron (Aloxi) (0.05 mg/mL) injection Given 05/2022 11:02 AM EDT 0.25 mg 0.25 mg 0.25 mg, Intravenous, ONCE, 1 dose, On Tue05/31/22 at 1100, Administer over 30 seconds., Routine documented in this encounter Care Teams Gas Engine Operator Compressors Relationship Specialty Start Date End Date Willam Waite MD PCP - General 03/24/22 6 [place] [address] documented as of this encounter
--- OUTSIDE RECORDS SUMMARY | 2022-07-12 08:55 | XMS_ITS | Encounter Summary ---
:1965 Author Organization [facility] [address] Care Team Providers Name Role Phone Willam Waite MD Primary Care Provider Encounter Details Date Type Department Care Team Description 05/24/2022 Telephone Hematology Oncology at [facility], [place], [facility] RN [address] [place] [address] [phone] Social History Tobacco Use Types [...] Telephone Encounter - Clau Monet RN - 05/24/2022 8:27 AM EDT RN phone call to Ines, patient's for updated status. Reports that Iban was released from prison and they are on their way to [facility] lab now. Will start chemoradiation as planned today. documented in this encounter Plan of Treatment Upcoming Encounters Date Type Specialty Care Team Description 07/14/2022 TH Visit (TeleHealth) Palliative Care Kian Zelaya APRN [facility] PALLIATIVE MEDIC [place], [place] [address] (Wo rk) 07/22/2022 TH Visit (TeleHealth) Palliative Care Benoit Lei MUNICIPAL CLERK [facility] [place] [address] Criselda Zelaya MUNICIPAL CLERK [facility] [place] [address] 08/12/2022 Office Visit Cardiology Hari Summers MD [facility] [place] [address] Kit Bonilla MD [facility] [place] [address] documented as of this encounter Visit Diagnoses Not on filedocumented in this encounter Care Teams Consumer Insights Specialist Relationship Specialty Start Date End Date Willam Waite MD PCP - General 03/24/22 6 [place] [id number] documented as of this encounter
--- OUTSIDE RECORDS SUMMARY | 2022-07-12 08:55 | XMS_ITS | Encounter Summary ---
:1965 Author Organization [facility] [place] [address] Care Team Providers Name Role Phone Willam Waite MD Primary Care Provider Reason for Visit Reason Onset Date Comments Medication Refill 05/18/2022 Encounter Details Date Type Department Care Team Description 05/18/2022 Refill Palliative Medicine at [facility] Criselda Zelaya APRN [facility] [place] [phone] PALLIATIVE MEDICINE [phone] [place], [place] [address] (Wo rk) Social History Tobacco [...] Telephone Encounter - Criselda Zelaya APRN - 05/18/2022 2:20 PM EDT Cost of Suboxone even with [facility] Is more than $150 documented in this encounter Plan of Treatment Upcoming Encounters Date Type Specialty Care Team Description 07/14/2022 TH Visit (TeleHealth) Palliative Care Kian Zelaya APRN [facility] PALLIATIVE MEDIC ALYSSA [place], [place] [address] (Wo rk) 07/22/2022 TH Visit (TeleHealth) Palliative Care Benoit Lei BIRD TENDER [facility] [place] [address] Criselda Zelaya APRN [facility] [place] [address] 08/12/2022 Office Visit Cardiology Hari Summers MD [facility] [place] [address] Kit Bonilla MD [facility] [place] [address] documented as of this encounter Visit Diagnoses Not on filedocumented in this encounter Care Teams Finance Clerk Relationship Specialty Start Date End Date Willam Waite MD PCP - General 03/24/22 6 [place] [address] documented as of this encounter
--- OUTSIDE RECORDS SUMMARY | 2022-07-12 08:55 | XMS_ITS | Encounter Summary ---
:1965 Author Organization [facility] [place] [address] Care Team Providers Name Role Phone Willam Waite MD Primary Care Provider Encounter Details Date Type Department Care Team Description 05/21/2022 Telephone Palliative Medicine at [facility] Criselda Zelaya APRN [facility] [place] [address] PALLIATIVE MEDICINE [phone] [place], [place] [address] (Wo rk) Social History Tobacco [...] Telephone Encounter - Criselda Zelaya APRN - 05/21/2022 3:27 PM EDT Call to Ines Reports that Iban had left home yesterday evening as was discouraged when treatment did not start yesterday. She did not know where he was and he has usually gone places by foot, rides from family members (who have active ISABELLA), or hitchhikes. He was arrested him for an outdated warrant from 2008 She had to give the medications to the state federal relations deputy director who came to her home at 100 a.m. for it to be administered while in custodial He now has 9 days of medication with him once he is released from custodial. She does not know if he will return home. In the past he has returned home after being in custodial as itis upsetting to him (has served up to 14 months). We discussed that if Iban takes all medications at once when discharged he could overdose but it is hopeful that he will return home and allow her to administer medications. She will contact us with further needs. At the present time, treatment is supposed to start on Tuesday chemoradiation. Criselda Zelaya APRN documented in this encounter Plan of Treatment Upcoming Encounters Date Type Specialty Care Team Description 07/14/2022 TH Visit (TeleHealth) Palliative Care Kian Zelaya APRN [facility] DR PALLIATIVE MEDIC ALYSSA [place], [place] [address] (Wo rk) 07/22/2022 TH Visit (TeleHealth) Palliative Care Benoit Lei HAT LACER [facility] [place] [address] Criselda Zelaya HAT LACER [facility] [place] [address] 08/12/2022 Office Visit Cardiology Hari Summers MD [facility] [place] [address] Kit Bonilla MD [facility] [place] [address] documented as of this encounter Visit Diagnoses Not on filedocumented in this encounter Care Teams Medicine Aide Relationship Specialty Start Date End Date Willam Waite MD PCP - General 03/24/22 6 [place] [address] documented as of this encounter
--- OUTSIDE RECORDS SUMMARY | 2022-07-12 08:55 | XMS_ITS | Encounter Summary ---
:1965 Author Organization [facility] [place] [address] Care Team Providers Name Role Phone Willam Waite MD Primary Care Provider Reason for Visit Reason Onset Date Comments Other 05/14/2022 reports Iban mendoza AMS, is wandering. Encounter Details Date Type Department Care Team Description 05/14/2022 Telephone Palliative Medicine at Cristela Soria, Avelina ( reports [facility] RN Iban has SETVE, is [facility] [place] .) [place] [phone] Social History Tobacco Use Types Packs/Day [...] this encounter Miscellaneous Notes Telephone Encounter - Cristela Soria RN - 05/14/2022 3:51 PM EDT Palliative Care Caller: RN to Iban's Ines Reason for call: Ines called and left message for Catie Harrison, inpatient LINE FIXER for Palliative Care. Stated Iban has been wandering and not making sense. Requested callback. Ines said since last night Iban has been restless, wandering, confused, has gone to his brother's home where he gets street drugs. Took his night time doses of his prescribed medications including hissuboxone before wandering down the road from daughter Marisela's house and being picked up by his brother, and taken to his (brother's) house, where he says he can get any street drug he wants that they have. Ines's understanding is that he left his brother's house at some point overnight, spent the night wandering in the ramirez, came back to daughter's house in the morning where he took his morning doses of prescribed medications, including his suboxone, and then wandered away again and ended up back at the brother's house. She called the police and the ambulance. Because [place], and the brother lives in [place], just across the state line, the police told her they couldn't do anything. The ambulancecrew said he wouldn't go with them and there wasn't anything they could do. She said she hopes he comes back for his afternoon medications, and then maybe she and daughter can get him in the car and take him to the local ED ([facility]). Ines said, They [brother's family] told us he's acting better now, more normal, so I guess he's coming down from whatever they gave him. Ines said, He went out of the house with his Narcan in his pocket. Now who does that unless they're planning on taking more drugs? Ines said he is not acting violent, or threatening violence to her or other family members. I told Ines that we share her worries of Ines's safety, being outside on the road--risk of being hit; being in the [place] when it's so hot--risk of dehydration, and of course, overdose. Infection could be another possibility for his confusion, though less likely than street drugs. PLAN reviewed with Iens: ?? If Iban returns to daughter's house, give him prescribed meds as scheduled ?? Try to get him to go to ED for evaluation and urine drug screen, if at all possible. ?? Call Palliative Care with any further questions/concerns--provided her with weekday and on-call contact #s, which she wrote down ?? Carlota Man APRN, Palliative Care provider on-call aware of situation, as is Elizabeth Daly RN, outpatient nurse clinician for our team. Follow-up call needed? Yes, Palliative Care nurse call on Thursday 05/17 to check in with Ines on situation IF Iban is a no-show for his appointments--both oncology and Palliative Care-- that day. Kwabena Soria RN, PN Nurse Clinician Palliative Care Pager [phone] documented in this encounter Plan of Treatment Upcoming Encounters Date Type Specialty Care Team Description 07/14/2022 TH Visit (TeleHealth) Palliative Care Kian Zelaya, [facility] PALLIATIVE MEDIC ALYSSA [place], [place] [address] (Wo rk) 07/22/2022 TH Visit (TeleHealth) Palliative Care Benoit Lei, [facility] [place] [address] Criselda Zelaya [facility] [place] [address] 08/12/2022 Office Visit Cardiology Hari Summers MD [facility] [place] [address] Kit Bonilla MD [facility] [address] documented as of this encounter Visit Diagnoses Not on filedocumented in this encounter Care Teams Cutting Machine Operator Relationship Specialty Start Date End Date Willam Waite MD PCP - General 03/24/22 6 [place] [address] documented as of this encounter
--- OUTSIDE RECORDS SUMMARY | 2022-07-12 08:55 | XMS_ITS | Encounter Summary ---
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 Kanu Ash MD [facility] Hem Onc Office Procedures TC PALONOSETRON HCL, 25MCG, INJECTION (ALOXI) TC PACLITAXEL, 1MG, INJ TC CARBOPLATIN, 50MG, INJECTION (PARAPLATIN) [id number] Aloxi 0.25 MG - NR [id number] Taxol [id number] CARBOplatin (Paraplatin) [address] HEMATOLOGY/[place] [phone] Fax: Referral ID Status Reason Start Date Expiration Date Visits V isits Requested Authorized [id number] 05/10/2022 11/10/2022 99 99 Encounter Details Date Type Department Care Team Description 05/24/2022 Infusion Hematology Oncology at [facility] malignant neoplasm of bronchus of left upper lobe; [facility] Mass of upper lobe of left l hardeep [address] [place] [address] [phone] Social History Tobacco Use Types Packs/Day Years [...] documented as of this encounter Progress Notes Ashley Wilson RN - 05/24/2022 10:00 AM EDT INFUSION THERAPY ADMINISTRATION NOTES DIAGNOSIS: NSCLC CYCLE #: Cycle 1, Day 1 - Carboplatin/Paclitaxel concurrent with radiation. REASON FOR VISIT: To begin chemoradiation. SUBJECTIVE: Iban was seen by provider. He admits to some anxiety but is committed to following through with thistreatment. He does have left arm referred pain from tumor. He requests tylenol. OBJECTIVE: VSS. Ready to treat. Within 15 minutes of the tylenol he stated the pain had decreased. LAB DATA: WBC - 7.34, H/H - 14.3/42.8, Plt Ct - 270, ANC - 4.55, Lytes wnl, BUN/Cr - 23/0.9, MG++ - 1.9, CA++ - 8.3 IV ACCESS: PIV Pre administration: Chemotherapy orders independently verified for drug name, route, and dosage per patient's height, weight and BSA by Ashley Wilson RN and Staff Pharmacist(s). REACTIONS (DESCRIPTION, TIME, INTERVENTION AND EFFECTIVENESS) none ASSESSMENT: Iban was awake, alert and tolerated treatment well. PIV discontinued prior to dismissal. Pt. chemo teaching instructions included: During clinic hours (8am-5pm Tuesday-Tuesday): pt. can call [phone] with questions or concerns. After clinic hours (5pm-8am Tuesday-Tuesday and weekends) pt can call [phone] and ask for the paper handler/oncologist second hand. Iban Palomares verbalized understanding of potential chemotherapy side effects and home care including but not limited to- handwashing to prevent infection, signs and symptoms of low blood counts (fever, fatigue, bleeding), to call with a fever of 100.4 or greater, any significant constipation/diarrhea, importance of nutrition and fluid intake (drinking at least 32-64 ounces of non-caffeinated beverages/day), mouth care. Iban Palomares verbalized understanding of how to take prescription medications given for home use after chemotherapy. Iban was given literature, a magnet, and a card for constipation management. He didseem interested in reading the booklet on Chemotherapy and You. PLAN: Return to clinic in one week. documented in this encounter Plan of Treatment Upcoming Encounters Date Type Specialty Care Team Description 07/14/2022 TH Visit (TeleHealth) Palliative Care Kian Zelaya SUPERVISOR STATEMENT CLERKS [facility] ER PALLIATIVE MEDIC [place], [place] [address] (Wo rk) 07/22/2022 TH Visit (TeleHealth) Palliative Care DoBenoit [facility] [place] [address] Criselda Zelaya SUPERVISOR STATEMENT CLERKS [facility] [place] [address] 08/12/2022 Office Visit Cardiology Hari Summers MD [facility] [place] [address] Kit Bonilla MD [facility] [address] documented as of this encounter Visit Diagnoses Diagnosis 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 Malignant neoplasm of upper lobe, bronch us or lung Mass of upper lobe of left lung documented in this encounter Administered Medications Inactive Administered Medications - up to 3 most recent administrations Medication Order MAR Action Action Date Dose Rate Site acetaminophen (Tylenol) tablet Given 05/24/2022 11:28 AM EDT 975 mg 975 mg 975 mg (rounded from 1,000 mg), Oral, ONCE, 1 dose, On Tue05/24/22 at 1145, Maximum dose of acetaminophen is 4000 mg from all sources in 24 hours. When ordered for pain, acetaminophen should be given even when other ordered pain medications are indicated. , Routine CARBOplatin (Paraplatin) 255 mg in New Bag 05/24/2022 1:01 PM EDT 255 mg 551 mL/hr dextrose 5% 275.5 mL infusion 255 mg (rounded from 254.6 mg, Target AUC = 2), Intravenous, ONCE, 1 dose, On Tue05/24/22 at 1200, Administer over 30 Minutes, Warning Vesicant/Irritant Medication dexAMETHasone (Decadron) injection 4 mg Given 05/24/2022 10:52 AM EDT 4 mg 4 mg, Intravenous, ONCE, 1 dose, On Tue05/24/22 at 1100, Administer 30 minutes prior to PACLitaxel. He is currently on Dexamethasone 8mg PO daily - he has taken today's dose at home diphenhydrAMINE (Benadryl) (50 mg/mL) Given 05/24/2022 10:53 AM EDT 25 mg injection 25 mg 25 mg, Intravenous, ONCE, 1 dose, On Tue05/24/22 at 1100, Administer 30 minutes prior to PACLitaxel., Routine famotidine (Pepcid) (10 mg/mL) injection 20 Given 05/24/2022 10:53 AM EDT 20 mg mg 20 mg, Intravenous, ONCE, 1 dose, On Tue05/24/22 at 1100, Administer 30 minutes prior to PACLitaxel. PACLitaxeL (Taxol) 99 mg in New Bag 05/24/2022 11:42 AM EDT 99 mg 266.5 mL/hr sodium chloride 0.9% Non-PVC 266.5 mL infusion 99 mg (rounded from 98.5 mg = 50 mg/m2/dose ? 1.97 m2 Treatment Plan BSA from Recorded weight), Intravenous, ONCE, 1 dose, On Tue05/24/22 at 1200, Administer over 60 Minutes, Warning Vesicant/Irritant Medication palonosetron (Aloxi) (0.05 mg/mL) injection Given 10/2021 10:52 AM EDT 0.25 mg 0.25 mg 0.25 mg, Intravenous, ONCE, 1 dose, On Tue05/24/22 at 1100, Administer over 30 seconds., Routine documented in this encounter Care Teams Explosive Ordnance Handler Relationship Specialty Start Date End Date Willam Waite MD PCP - General 03/24/22 6 [place] [address] documented as of this encounter
--- OUTSIDE RECORDS SUMMARY | 2022-07-12 08:55 | XMS_ITS | Encounter Summary ---
:1965 Author Organization [facility] [place] [address] Care Team Providers Name Role Phone Willam Waite MD Primary Care Provider Encounter Details Date Type Department Care Team Description 05/31/2022 Notes Only [facility] OFFICE OF CARE [address] [place] [address] [phone] Social History Tobacco Use Types Packs/Day Years [...] encounter Progress Notes Radha Jasmine, ARMEN - 05/31/2022 12:01 PM EDT Follow up with pt during his infusion visit today. Pt indicated he is staying with his . He acknowledged strain between them. He is trying to follow the rules. His brother in law transported him today. Pt did not identify any new needs today. TC In[facility]. Oh he is there. I have not seen him in a few days. Informed her he did come in today for treatment. She indicated he was scrabbling for a ride this morning as reportedly pt found faultwith Ines arranging/providing rides. He is on his own for rides this week and I hope it works out. Ines has offered for pt to stay with her a few days after his treatments when he does not feel thebest. After that pt does what he wants. She indicated she has set limits and she is sticking to them. BUSINESS SUPPORT PROFESSIONAL will continue to follow pt for support and resources. Reminded of BUSINESS SUPPORT PROFESSIONAL availability too. Brief assessment Supportive Counseling Add: Pt requested BUSINESS SUPPORT PROFESSIONAL fax his schedule to [facility] as he is going to be using them for rides going forward. Confirmed this with [facility]. BUSINESS SUPPORT PROFESSIONAL faxed his schedule to [facility] so rides can be arranges starting tomorrow.Notified [facility] staff. Transportation resources documented in this encounter Plan of Treatment Upcoming Encounters Date Type Specialty Care Team Description 07/14/2022 TH Visit (TeleHealth) Palliative Care Kian Zelaya DYE LAB TECHNICIAN [facility] ER DR PALLIATIVE MEDIC ALYSSA [place], [place] [address] (Wo rk) 07/22/2022 TH Visit (TeleHealth) Palliative Care Benoit Lei [facility] [place] [address] Criselda Zelaya [facility] [place] [address] 08/12/2022 Office Visit Cardiology Hari Summers MD [facility] [place] [place] [id number] Kit Bonilla MD [facility] [place] [address] documented as of this encounter Visit Diagnoses Not on filedocumented in this encounter Care Teams Metal Sponge Making Machine Operator Relationship Specialty Start Date End Date Willam Waite MD PCP - General 03/24/22 6 [place] [phone] documented as of this encounter
--- OUTSIDE RECORDS SUMMARY | 2022-07-12 08:55 | XMS_ITS | Encounter Summary ---
:1965 Author Organization [facility] [place] [address] Care Team Providers Name Role Phone Willam Waite MD Primary Care Provider Encounter Details Date Type Department Care Team Description 05/15/2022 Telephone Hematology and Oncology at Ro Braswell [facility] Chriss[address] [facility] [place] [address] HEMATOLOGY/ONCOLOGY [phone] [place], [place] [address] (Wo rk) Social History Tobacco [...] this encounter Miscellaneous Notes Telephone Encounter - Ro Braswell MD - 05/15/2022 6:15 AM EDT Reason for call: Questions about suboxone Caller: Patient HPI: Iban Palomares is a 56 y.o. with diagnosis of newly diagnosed metastatic lung cancer. Patient states that he runs out of Suboxone and need a refill of this. I recommended him to please call back the type casting machine operator and request palliative care. This medication is being prescribed by Criselda Zelaya - Palliative Care at [facility]. All questions/concerns were addressed. Patient verbalized understanding and will call for any more questions. This note will be routed to primary oncology/hematology team. Ro Kay M.D. Hematology/Oncology Fellow Pager # [phone] 05/15/22, 6:15 AM Hematology/Oncology Clinic [facility] [place] [address] documented in this encounter Plan of Treatment Upcoming Encounters Date Type Specialty Care Team Description 07/14/2022 TH Visit (TeleHealth) Palliative Care Kian Zelaya [facility] ER PALLIATIVE MEDIC ALYSSA [place], [place] [address] (Wo rk) 07/22/2022 TH Visit (TeleHealth) Palliative Care Benoit Lei [facility] [place] [address] Criselda Zelaya LEAF STRIPPER [facility] [place] [address] 08/12/2022 Office Visit Cardiology Hari Summers MD [facility] [place] [address] Kit Bonilla MD [facility] [place] [address] documented as of this encounter Visit Diagnoses Not on filedocumented in this encounter Care Teams Rag Sorter And Cutter Relationship Specialty Start Date End Date Willam Waite MD PCP - General 03/24/22 6 [place] [phone] documented as of this encounter
--- OUTSIDE RECORDS SUMMARY | 2022-07-12 08:56 | XMS_ITS | Encounter Summary ---
:1965 Author Organization [place] [address] Care Team Providers Name Role Phone Willam Waite MD Primary Care Provider Reason for Visit Auth/Cert Specialty Diagnoses / Procedures Referred By Contact Refer red To Contact Diagnoses Lung mass Valerie Wiggins [facility] Procedures [place] [address] Referral ID Status Reason Start Date Expiration Date Visits Requ ested Visits Authorized [id number] 1 1 Encounter Details Date Type Department Care Team Description 05/06/2022 Anesthesia Event Gastroenterology at [facility] Charlee Garcia [facility] [place] [phone] [facility] [phone] DR ANESTHESIOLOGY [place], [place] [address] Anesthesia Record Procedure Summary Procedure Name Responsible Anesthesia Start Anesthesia Stop Time Anesthesiologist Time EGD, UPPER GI Charlee Garcia MD 05/06/22 1000 05/06/22 103 4 ENDOSCOPY (N/A Trunk) Events Date Time Event Comment 05/06/2022 0946 1000 AN Verify 1000 Start 1000 An Start Data 1003 An Induction 1003 Anesthesia Ready 1023 an stop data 1034 Recovery or ICU Handoff Patient care was transferred to the destination unit staff after review of the patient's medica l history, current anesthetic/surgi tea status and plan, according to the Provider Handoff Checklist. 1034 Stop Name Total Propofol 50 mg Propofol INF 277.56 mg Dexmedetomidine 12 mcg Midazolam 2 mg Lactated Ringers 0 mL Agents Name O2 Auxiliary Flowmeter 1 Blood No blood administrations on file. Lines, Drains, and Airways Type Details Placement Removal Incision 02/01/13; lumbar spine; 02/01/13 0000 by Clark, 05/08/22 1316 by Baldemar, 05/08/22; 1316 ANA Corral RN PIV 05/04/22; 1742; cephalic 05/04/22 1742 by Bay , 05/11/22 1700 by los Pena (lateral side of ANA Ledezma RN arm), right; euvi-nig-xpepnx catheter system; 20 gauge; 05/11/22; 1700 documented in this encounter Social History Tobacco [...] as of this encounter OR Notes Anesthesia Postprocedure Evaluation - Charlee Garcia MD - 05/06/2022 11:14 AM EDT Department of Anesthesiology Post-procedure Note Patient: Iban Palomares Procedure Summary Date: 05/06/22 Room / Location: [facility] ENDO 4 / [facility] Anesthesia Start: 1000 Anesthesia Stop: 1034 Procedures: EGD, UPPER GI ENDOSCOPY (N/A Trunk) UPPER EUS- ENDOSCOPIC ULTRASOUND (N/A Trunk) Diagnosis: (ALBERTO Lung Ca) Surgeons: Heladio Woods MD Responsible Provider: Charlee Garcia MD Anesthesia Type: MAC ASA Status: 3 All Anesthesia Providers: Anesthesiologist: Charlee Garcia MD FACILITY ATTENDANT: Iam Browne CRNA Vitals Value Taken Time BP 144/95 05/06/22 1110 Temp Pulse Resp 17 05/06/22 1050 SpO2 94 % 05/06/22 1113 Pain Level 0 05/06/22 1105 Vitals shown include unvalidated device data. Patient Location: PACU/[facility] Level of Consciousness: Conscious but Sleepy Pain Management: Satisfactory Analgesia PONV: None Cardiovascular Status: At Baseline and Hemodynamically Stable Respiratory Status: At Baseline and Room Air Postoperative Fluid Status: Intravascular EUvolemia Possible Anesthetic Complications: NONE apparent at time of evaluation Final Primary Anesthesia Type: MAC (The anesthetic type performed was the same as planned.) Comments: Slow to wake up, but appropriately conversant and A&OX4 when aroused from sleep. Of note, sleeps with eyes open. Charlee Garcia MD Anesthesia Preprocedure Evaluation - Charlee Gacria MD - 05/06/2022 8:39 AM EDT Pre-Anesthesia Evaluation for: Iban Palomares a 56 y.o. male. Procedure(s): EGD, UPPER GI ENDOSCOPY UPPER EUS- ENDOSCOPIC ULTRASOUND Patient Active Problem List Diagnosis Date Noted ??? Lung mass 05/05/2022 ??? Mass of upper lobe of left lung 04/06/2022 ??? Hepatitis C, chronic 12/31/2011 ??? Lumbar disc herniation 05/04/2011 Past Medical History: Diagnosis Date ??? Asthma ??? Bipolar 1 disorder ??? COPD (chronic obstructive pulmonary disease) ??? Herniated disc ??? HTN (hypertension) Past Surgical History: Procedure Laterality Date ??? HAND SURGERY ??? HERNIA REPAIR ? ? [facility] EBUS GUIDED SAMPL 3/> NODE STATION/STRUX N/A 04/29/2022 BRONCH, W ENDOBRONCHIAL ULTRASOUND (EBUS) GUIDED SAMPLING, 3+ NODES (WRVU 5.21) performed by Antonio Jeronimo MD at [facility] END[facility]COPY ??? PRO LAMINOTOMY, LUMBAR DISK, 1 INTRSP 06/17/2011 LAMINOTOMY, DECOMPRESSION, FORAMINOTOMY, LUMBAR performed by ANDI NELSON at [facility] MA[facility] OR ??? PRO NEEDLE BIOPSY LIVER 12/22/2011 LIVER BIOPSY performed by RITA ORLANDO at [facility] ENDOS[facility] ??? PRO REDO EXCIS LUMBAR DISC 02/01/2013 LAMINOTOMY W\DECOMPRESSION, ONE LVL, LUMBAR ,RE-EXPL (INCLDNG PART. FACETECTOMY, FORAMINOTOMY &\OR DISCECTOMY) performed by Andi Nelson MD at [facility] OR Social History Tobacco Use ??? Smoking status: Current Every Day Smoker Packs/day: 1.00 Years: 40.00 Pack years: 40.00 Types: Cigarettes ??? Smokeless tobacco: Never Used ??? Tobacco comment: 6 cigs daily Substance Use Topics ??? 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 Types: Benzodiazapines , Marijuana, Methamphetamines, Opioids Comment: Current marijuana user; edibles Allergies Allergen Reactions ??? Fentanyl Nausea Only ??? Fluoxetine Other reaction(s): Other Medications: MAR and/or home medications have been reviewed. Physical Exam: Preprocedure Vitals Current as of 05/06/22 0839 BP: 165/114 Pulse: Resp: 20 SpO2: 98 Temp: 36.6 ??C (97.8 ??F) Height: Weight: 77.1 kg (169 lb 15.6 oz) (05/04/22) BMI: IBW: Last edited 05/06/22 0749 by MONIQUE Airway Assessment: Mallampati: III TM distance: >3 FB Neck ROM: full Cardiovascular Assessment: Rhythm: regular Rate: normal Pulmonary Assessment: unlabored breathing Dental Assessment: Comment: Mostly edentulous. Remaining dentition poor, nothing looser per patient report Misc Assessment: IV access: Peripheral line Last Filed Perioperative Cognitive Screening None Anesthesia Plan: ASA 3 MAC, with a(n) intravenous induction Patient interviewed and examined. Iban Palomares is a 56 y.o. patient who presents for EUS for workup for recently diagnosed ALBERTO lung cancer. PMH significant for: COPD, current tobacco use Cannabis use - a few times weekly (edibles) H/o polysubstance use disorder, now abstinent Hep C s/p treatment Underwent uncomplicated EBUS recently with LMA Appropriately NPO. No history of anesthetic complications or family history of major anesthetic complications. Exercise tolerance >4 METS. Denies chest pain. No recent respiratory infections, fevers. Plan for sedation with natural airway, GA as backup, standard ASA monitors, to endo SD post procedure. All patient questions answered and anesthesia consent obtained with discussion of indications, benefits, risks, and alternatives. Charlee Garcia MD Attending Anesthesiologist Pager [phone] 05/06/22 9:45 AM Informed Consent: Anesthetic plan and risks discussed with patient. Plan discussed with FACILITY ATTENDANT and attending. Anesthesia Screening documented in this encounter Plan of Treatment Upcoming Encounters Date Type Specialty Care Team Description 07/14/2022 TH Visit (TeleHealth) Palliative Care Kian Zelaya APRN [facility] PALLIATIVE MEDIC [place], [place] [address] (Wo rk) 07/22/2022 TH Visit (TeleHealth) Palliative Care Benoit Lei APRN [facility] [place] [address] Criselda Zelaya APRN [facility] [place] [address] 08/12/2022 Office Visit Cardiology Hari Summers MD [facility] [place] [address] Kit Bonilla MD [facility] [address] documented as of this encounter Visit Diagnoses Not on filedocumented in this encounter Administered Medications Inactive Administered Medications - up to 3 most recent administrations Medication Order MAR Action Action Date Dose Rate Site dexmedeTOMIDine (Precedex) (4 Given 05/06/2022 10:08 AM EDT 6 mc g mcg/mL) bolus injection (Anesthsia) Intravenous, PRN, Starting on Deborah 05/06/22 at 1004, Until Deborah 05/06/22 at 1034, Anesthesia Intra-op, Routine Given 05/06/2022 10:04 AM EDT 6 mcg lactated ringers infusion New Bag 05/06/2022 10:00 AM EDT Intravenous, CONTINUOUS PRN, Starting on Deborah 05/06/22 at 1000, Until Deborah 05/06/22 at 1034, Anesthesia Intra-op midazolam (pf) (Versed) (1 mg/mL) multi-dose Given 10:13 AM EDT 1 mg injection Intravenous, PRN, Starting on Deborah 05/06/22 at 1008, Until Deborah 05/06/22 at 1034, Anesthesia Intra-op, Routine Given 05/06/2022 10:08 AM EDT 1 mg propofoL (Diprivan) (10 mg/mL) New Bag 05/06/2022 10:04 200 mc g/kg/min 92.52 mL/hr infusion AM EDT Intravenous, CONTINUOUS PRN, Starting on Deborah 05/06/22 at 1004, Until Deborah 05/06/22 at 1034, Anesthesia Intra-op, Routine propofoL (Diprivan) 10 mg/mL bolus injection Given 10:04 AM EDT 50 mg (Anesthesia) Intravenous, PRN, Starting on Deborah 05/06/22 at 1004, Until Deborah 05/06/22 at 1034, Anesthesia Intra-op documented in this encounter Care Teams Ignition Mechanic Relationship Specialty Start Date End Date Willam Waite MD PCP - General 03/24/22 6 [place] [phone] documented as of this encounter
--- OUTSIDE RECORDS SUMMARY | 2022-07-12 08:56 | XMS_ITS | Encounter Summary ---
:1965 Author Organization [facility] Address [facility] [place] [address] Care Team Providers Name Role Phone Willam Waite MD Primary Care Provider Encounter Details Date Type Department Care Team Description 05/07/2022 Orders Only Hematology and Kanu Ash, Primary malignant Oncology at [facility] neoplasm of bronchus [facility] of left upper lobe Drive (Primary Dx) [place], [place] HEMATOLOGY/ONCOLOGY [address] DEPT [phone] [place], [place] [address] (Wo rk) Social History Tobacco [...] TH Visit (TeleHealth) Palliative Care Kian Zelaya COMMUNITY LIAISON [facility] ER PALLIATIVE MEDIC [place], [place] [address] (Wo rk) 07/22/2022 TH Visit (TeleHealth) Palliative Care Benoit Lei COMMUNITY LIAISON [facility] [place] [address] Criselda Zelaya COMMUNITY LIAISON [facility] [place] [address] 08/12/2022 Office Visit Cardiology Hari Summers MD [facility] [place] [address] Kit Bonilla MD [facility] [place] [address] Scheduled Orders Name Type Priority Associated Diagnoses Order S chedule Magnesium Lab STAT Primary malignant Once a wee k for 48 neoplasm of bronchus Occurre nces starting of left upper lobe 2 until 05/07/2023 Comprehensive metabolic Lab STAT Primary malignant Once a week for 48 panel (non-fasting) neoplasm of bronchus Occurrences starting of left upper lobe 2 until 05/07/2023 CBC (with Diff) Lab STAT Primary malignant Once a week for 48 neoplasm of bronchus Occurre nces starting of left upper lobe 2 until 05/07/2023 documented as of this encounter Visit Diagnoses Diagnosis 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
--- OUTSIDE RECORDS SUMMARY | 2022-07-12 08:56 | XMS_ITS | Encounter Summary ---
:1965 Author Organization [facility] [place] [address] Care Team Providers Name Role Phone Willam Waite MD Primary Care Provider Reason for Visit Reason Onset Date Comments Medication Refill 05/11/2022 Encounter Details Date Type Department Care Team Description 05/11/2022 Refill Palliative Medicine at [facility], Substance use disorder; [facility]GENET[facility] DIRECTOR Neoplasm related pain [facility] [place] [address] PALLIATIVE MEDICINE [phone] [place], [place] [address] (Wo rk) Social History Tobacco [...] 12 months, you worried that your food Perry mes true 04/21/2022 would run out before [...] place to sleep or slept in a prison (including now)? Sex Assigned at Date Recorded Male 05/04/2022 4:12 PM EDT documented as of this encounter Miscellaneous Notes Telephone Encounter - Criselda Zelaya APRN - 05/11/2022 2:27 PM EDT Patient with newly diagnosed pancoast tumor and co-morbid substance use disorder He has been self- treating the significant pain with illicit substances. During the hospitalization he was started on Suboxone titrated to 16 mg/4mg but still required mu-agonist opioids (hydromorphone) to control the pain. He is leaving the hospital before further titration was possible. He is at high risk for recurrence of substance use if pain is not controlled with Suboxone. Will increase to Suboxone 8mg/2mg - take 24 mg daily in divided doses He will follow up with me via telealth TuesdayMay 17 230pm RN to call to check on symptoms. Criselda Zelaya APRN documented in this encounter Plan of Treatment Upcoming Encounters Date Type Specialty Care Team Description 07/14/2022 TH Visit (TeleHealth) Palliative Care Kian Zelaya [facility] ER PALLIATIVE MEDIC [place], [place] [address] (Wo rk) 07/22/2022 TH Visit (TeleHealth) Palliative Care Benoit Lei [facility] [place] [address] Criselda Zelaya [facility] [place] [address] 08/12/2022 Office Visit Cardiology Hari Summers MD [facility] [place] [address] Kit Bonilla MD [facility] [place] [address] documented as of this encounter Visit Diagnoses Diagnosis Substance use disorder Neoplasm related pain Neoplasm related pain (acute) (chronic) documented in this encounter Care Teams Petroleum Refinery Laborer Relationship Specialty Start Date End Date Willam Waite MD PCP - General 03/24/22 6 [place] [id number] documented as of this encounter
--- OUTSIDE RECORDS SUMMARY | 2022-07-12 08:56 | XMS_ITS | Encounter Summary ---
:1965 Author Organization [facility] [place] [address] Care Team Providers Name Role Phone Willam Waite MD Primary Care Provider Reason for Visit Reason Onset Date Comments Medication Refill 05/11/2022 Encounter Details Date Type Department Care Team Description 05/11/2022 Refill Palliative Medicine at [facility] Criselda Zelaya APRN [facility] [place] [address] PALLIATIVE MEDICINE [phone] [place], [place] [address] (Wo rk) Social History Tobacco [...] TH Visit (TeleHealth) Palliative Care Kian Zelaya FLEET MAINTENANCE FOREMAN [facility] ER PALLIATIVE MEDIC [place]E [place], [place] [address] (Wo rk) 07/22/2022 TH Visit (TeleHealth) Palliative Care Benoit Lei FLEET MAINTENANCE FOREMAN [facility] [place] [address] Criselda Zelaya FLEET MAINTENANCE FOREMAN [facility] [place] [address] 08/12/2022 Office Visit Cardiology Hari Summers MD [facility] [place] [address] Kit Bonilla MD [facility] [place] [address] documented as of this encounter Visit Diagnoses Not on filedocumented in this encounter Care Teams Upholsterer Helper Relationship Specialty Start Date End Date Willam Waite MD PCP - General 03/24/22 6 [place] [address] documented as of this encounter
--- OUTSIDE RECORDS SUMMARY | 2022-07-12 08:56 | XMS_ITS | Encounter Summary ---
:1965 Author Organization [facility] [place] [address] Care Team Providers Name Role Phone Willam Waite MD Primary Care Provider Encounter Details Date Type Department Care Team Description 05/10/2022 Orders Only Hematology/Oncology Kanu Ash, Pr imary malignant at [facility] neoplasm of bronchus [address] [place] [address] Drive [facility] [place] [address] HEMATOLOGY/ONCOLOGY [phone] [facility] [place] [place] [address] (Wo rk) Social History Tobacco Use Types [...] TH Visit (TeleHealth) Palliative Care Kian Zelaya HORSE [employer]ETR[employer] MANAGER [facility] ER PALLIATIVE MEDIC [place], [place] [address] (Wo rk) 07/22/2022 TH Visit (TeleHealth) Palliative Care Benoit Lei [employer]SE [employer]ACETR[employer] MANAGER [facility] [place] [address] Criselda Zelaya HORSE RACETRACK MANAGER [facility] [place] [address] 08/12/2022 Office Visit Cardiology Hari Summers MD [facility] [place] [address] Kit Bonilla MD [facility] [place] [address] Scheduled Orders Name Type Priority Associated Diagnoses Order S chedule Magnesium Lab STAT Primary malignant Once a wee k for 48 neoplasm of bronchus Occurre nces starting of left upper lobe 2 until 05/10/2023 Comprehensive metabolic Lab STAT Primary malignant Once a week for 48 panel (non-fasting) neoplasm of bronchus Occurrences starting of left upper lobe 2 until 05/10/2023 CBC (with Diff) Lab STAT Primary malignant Once a week for 48 neoplasm of bronchus Occurre nces starting of left upper lobe 2 until 05/10/2023 documented as of this encounter Visit Diagnoses Diagnosis 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
--- OUTSIDE RECORDS SUMMARY | 2022-07-12 08:56 | XMS_ITS | Encounter Summary ---
:1965 [place] [address] Care Team Providers Name Role Phone Willam Waite MD Primary Care Provider Reason for Visit Reason Comments Shortness of Breath Lung cancer, left side tumor Chest Pain Auth/Cert Specialty Diagnoses / Procedures Referred By Contact Refer red To Contact Diagnoses Lung mass Valerie Wiggins [facility] Procedures [place] [address] Referral ID Status Reason Start Date Expiration Date Visits Requ ested Visits Authorized [id number] 1 1 Encounter Details Date Type Department Care Team Description 05/04/2022 - Hospital Encounter 3 Manoj Mcgill MD [facility] [place] [address] Lung mass (Primary Dx); 05/12/2022 [facility] Valerie Wiggins MD [facility] [address] QT prolongation; [facility] Chema Davila MD [facility] [place] [address] Altered mental status, unspecified alter ed mental status type [facility] Belen Malagon MD [facility] [place] [address] [place] [address] Social History Tobacco Use Types Packs/Day Years [...] Sign Reading Time Taken Comments Blood Pressure 146/94 05/12/2022 7:26 AM EDT Pulse 62 05/12/2022 3:48 AM EDT Temperature 36.5 ??C (97.7 ??F) 05/12/2022 7:26 AM EDT Respiratory Rate 18 05/12/2022 7:26 AM EDT Oxygen Saturation 96% 05/12/2022 7:26 AM EDT Inhaled Oxygen Concentration - - Weight 77.1 kg (169 lb 15.6 oz) 05/04/2022 3:24 PM EDT Height - - Body Mass Index 23.71 04/29/2022 11:03 AM EDT documented in this encounter Discharge Summaries Fifi Bishop MD - 05/11/2022 2:09 PM EDT Discharge Summary Patient Name: Carley Palomares Demographics: 56 y.o.male Admit Date: 05/04/2022 Discharge Date: 05/12/2022 Attending Physician: Belen Malagon MD Discharge Physician: Jeff Bains MD ID: [id number] y.o. male with a PMH of PSUD presenting w L shoulder pain iso known large apical lung mass. Follow-up Recommendations for Providers: -Being prescribed Suboxone and gabapentin for pain control as well as a short course of lorazepam w/close follow-up by Palliative. -PDMP reviewed, no aberrant prescription history. -Avoid lidocaine gtt for pain control. PCP Contact Information: Willam Waite MD / [facility] [id number] Pending Studies and Lab Data: none The patient will need the following 5 tests completed on: 05/04/2022 1. THC (Marijuana), Urine Confirmation 4. Amphetamine, Urine Confirmation 2. Amphetamine, Urine Confirmation 5. Hemogram 3. Rapid Drug Screen, Urine (AKIRA Request) Diagnosis: Authorizing Provider: Jeff Bains MD, Valerie Wiggins MD, Belen Malagon MD Discharge Diagnoses (Hospital Problems) and Secondary Diagnoses (Chronic Problems): Active Hospital Problems Diagnosis ??? Lung mass Resolved Hospital Problems No resolved problems to display. Active Non-Hospital Problems Diagnosis ??? Substance use disorder ??? 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 Mass of upper lobe of left lung 5.5 cm and involving the anterior mediastinum. ??? Hepatitis C, chronic ??? Lumbar disc herniation History of Presentation (per 05/04/2022 Admission H&P): Carley Palomares is a 56 y.o. male with past medical history significant for ALBERTO lung mass, current tobacco use, HTN, COPD/asthma, bipolar 1 disorder, substance use disorder (fentanyl and methamphetamine)who presents with progressive pain over the last few weeks and admitted for pain control, concern for Pancoast tumor. ?? Per patient, he has pain on the left side of his neck, torso, and down his left arm that has been ongoing for several months and has worsened over the last few weeks. The pain is worse with laying down. He has been taking alternating Tylenol, Aleve, and ibuprofen at home with limited effect. He describes it as like a toothache. Pain is constant, severe and is 10/10 at its worst, which is usually atnight. He endorses blurry vision, which he says is his baseline. Notes numbness and tingling in his left arm. He is right handed and notes increased weakness in his left arm and often drops objects. 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 ?? He also has had limited oral intake. Endorses nausea vomiting. He complains of difficulty swallowingwith solids. His Jaja says he has lost 10 lbs in the last few weeks, and >30 labs in the last 6 months. Notes a chronic cough, no increase in phlegm or dyspnea, no hemoptysis. He endorses 40 pack year smoking history. In the ER, he received 2L IVF bolus. For pain he received several doses of morphine reportedly without any effect. He received in total required 8mg of IV morphine, 15mg of ketorolac, 0.1mg IV dilaudidwithout significant relief. Narcotic dose was increased dilaudid 0.5 mg IV prn which per pt decreased pain from 10/10 to 7/10. He reports he received a prescription for suboxone last week from an OSH but never filled the script. He endorses recent use last week of fentanyl and methamphetamine as self-medication for his symptoms. ?? Hospital Course: #ALBERTO lung mass #Concern for Pancoast tumor Pt endorsed LUE weakness/dropping objects, numbness, and paraesthesias. Imaging showed extension of the mass with involvement of the T1/T2 vertebral bodies, left C7-T1 through T3-T4 neural formina and epidural space on the left upper thoracic spine; also with vascular encasement of the left vertebral artery and partial encasement of the left subclavian artery. Neurosurgery was consulted who recommended dexamethasone 10mg IV x1 followed by 4mg BID. GI was consulted due to concern for esophageal wall invasion, so EGD/EUS was performed on 05/06. It showed the lung mass abutting the cervical esophagus with generally preserved muscularis apart from a very focal??area at 23 cm where the findings??were ind efinite for focal invasion. Final biopsy results showed non-small cell carcinoma, favoring adenocarcinoma. Hematology/Oncology was consulted who requested MRI brain and CT A/P for staging; MRI brain showed no acute intracranial process and CT A/P did not identify metastatic disease in the abdomen and pelvis. The Hem/Onc team determined the tumor was unresectable and offered chemotherapy in conjunction with radiation therapy per Radiation Oncology. An MRI L brachial plexus was obtained to help drive radiation plan, and simulation for radiation therapy was initiated on Mon 05/10. ?? #Pain control #Substance use disorder Mr. Palomares's pain control ebbed and flowed during his hospital course and was likely complicated by his polysubstance use disorder. Palliative was consulted who initiated the following: micro inductionof buprenorphine, hydromorphone, gabapentin, and Tylenol to varying efficacy. BIT came to evalute and offered mindfulness based stress reduction. Despite multiple uptitrations and modifications of his pain regimen, his pain remained uncontrolled and thus a lidocaine gtt was initiated. The morning after starting the lidocaine gtt, Mr. Palomares developed lethargy and somnolence but was alert and orientedx4. The lidocaine gtt was immediately stopped. Patient will be sent home on Suboxone, gabapentin, and Tylenol for pain control in addition to his anxiety medications including lorazepam, clonidine, andmirtazipine. Procedures: Operations: Procedure(s): EGD, UPPER GI ENDOSCOPY UPPER EUS- ENDOSCOPIC ULTRASOUND Important Studies and Lab Data: Recent Labs 05/12/2261605/11/2244905/10/22251 WBC 13.5* 9.5 9.3 HGB 13.8 13.2* 12.8* HCT 40.1* 39.4* 38.1* PLATELET 248 256 264 Recent Labs 05/12/2261605/11/2244905/10/22 0252 NA 138 139 139 K 4.6 4.6 4.6 CL 103 103 106 CO2 26 27 26 BUN 19 25* 24* CREATININE 0.73* 0.86 0.80 Recent Labs 05/11/220 BILITOT <0.2* AST 35 ALT 47 ALKPHOS 121 No results for input(s): INR, PTT in the last 168 hours. No results for input(s): HA1C in the last 168 hours. No results for input(s): TSH in the last 168 hours. No results for input(s): HDL, LDLCHOL, CHOLHDL, TRIG, CHLPL in the last 168 hours. Microbiology Results (Last 30 days) No results found for the last 720 hours. Imaging: Results for orders placed or performed during the hospital encounter of 05/04/22 XR Chest PA & Lateral (Generic) (Exam End: 05/04/2022 3:38 PM) Impression 1. Stable left upper lobe paramediastinal mass. 2. No superimposed acute cardiopulmonary process. Thank you for letting us participate in the care of this patient. If you are a health care provider and have any questions regarding this report, please contact the number below. For patients who have questions please contact the health nurse care manager that requested your imaging first. Chest w Contrast (Exam End: 05/04/2022 5:59 PM) Impression 1. Unchanged size of left upper mediastinal [...] centrilobular emphysema. No pneumothorax or pleural effusions. Thank you for letting us participate in the care of this patient. If you are a health care provider and have any questions regarding this report, please contact the number below. For patients who have questions please contact the health nurse care manager that requested your imaging first. Cervical Spine wwo Contrast (Exam End: 05/04/2022 9:40 PM) Impression 1. Left lung apex mass extending to the scalene triangle, paraspinous soft tissues and superior mediastinum. 2. There is a involvement of the T1 and T2 vertebral bodies, the left C7-T1 through T3-T4 neural foramina and the epidural space on the left in the upper thoracic spine. 3. There is a evidence of vascular encasement of the left vertebral artery and partial encasement of the left subclavian artery. The superior margin of the mass projects along the course of the left brachial plexus. This would be better assessed with dedicated brachial plexus imaging. 4. Changes of cervical spondylosis as described. Thank you for letting us participate in the care of this patient. If you are a health care provider and have any questions regarding this report, please contact the number below. For patients who have questions please contact the health nurse care manager that requested your imaging first. Thoracic Spine wwo Contrast (Exam End: 05/04/2022 9:40 PM) Impression 1. Left lung apex mass extending to the scalene triangle, paraspinous soft tissues and superior mediastinum. 2. There is a involvement of the T1 and T2 vertebral bodies, the left C7-T1 through T3-T4 neural foramina and the epidural space on the left in the upper thoracic spine. 3. There is a evidence of vascular encasement of the left vertebral artery and partial encasement of the left subclavian artery. The superior margin of the mass projects along the course of the left brachial plexus. This would be better assessed with dedicated brachial plexus imaging. 4. Changes of cervical spondylosis as described. Thank you for letting us participate in the care of this patient. If you are a health care provider and have any questions regarding this report, please contact the number below. For patients who have questions please contact the health nurse care manager that requested your imaging first. Brain wwo Contrast (Generic) (Exam End: 05/05/2022 8:51 AM) Impression No evidence of intracranial metastatic disease. No acute intracranial processes identified. I have personally reviewed the image(s) and the resident's interpretation and agree with the findings, Bishop Otto at 05/05/2022 10:31 AM Thank you for letting us participate in the care of this patient. If you are a health care provider and have any questions regarding this report, please contact the number below. For patients who have questions please contact the health nurse care manager that requested your imaging first. Abdomen & Pelvis w Contrast (Exam End: 05/05/2022 11:27 AM) Impression No metastatic disease identified in the abdomen and pelvis. Thank you for letting us participate in the care of this patient. If you are a health care provider and have any questions regarding this report, please contact the number below. For patients who have questions please contact the health nurse care manager that requested your imaging first. Brachial Plexus w Contrast Left (Exam End: 05/07/2022 8:25 PM) Impression Large mesial left apical lung mass extending to the lower cervical and upper thoracic spine epidural space and left foramina, surrounding the C8 and T1 nerve roots. Thank you for letting us participate in the care of this patient. If you are a health care provider and have any questions regarding this report, please contact the number below. For patients who have questions please contact the health nurse care manager that requested your imaging first. Rad Onc Chest Interp Only (Exam End: 05/10/2022 12:09 PM) Impression 1. CT obtained for radiation therapy planning purposes. 2. Please see separate CT of the head and neck interpretation Thank you for letting us participate in the care of this patient. If you are a health care provider and have any questions regarding this report, please contact the number below. For patients who have questions please contact the health nurse care manager that requested your imaging first. Discharge Condition: Stable Discharge to: home with daughter Discharge Medications: Your Medications New Medications Dose Details buprenorphine-naloxone 8-2 mg Film Commonly known as: SUBOXONE Place 24 mg of opiate under the tongue daily. Indications: dependence on opioid- type drugs, prevention of relapse to opioid dependence 24 mg of opiate Quantity: 20 each Refills: 0 dexAMETHasone 4 mg Tab Commonly known as: Decadron Take 2 tablets by mouth every morning AND 1 tablet every evening. Do all this for 30 days. Quantity: 90 tablet Refills: 0 gabapentin 300 mg Cap Commonly known as: Neurontin Take 2 capsules by mouth 3 times daily for 7 days. 600 mg Quantity: 42 capsule Refills: 0 LORazepam 1 mg Tab Commonly known as: Ativan Take 1 tablet by mouth 3 times daily as needed for Anxiety for up to 7 days. 1 mg Quantity: 21 tablet Refills: 0 mirtazapine 7.5 mg Tab Commonly known as: REMERON Take 1 tablet by mouth nightly. 7.5 mg Quantity: 30 tablet Refills: 0 naloxone 4 mg/actuation [place] Commonly known as: Narcan 1 each by Nasal route once as needed for up to 1 dose. 1 each Quantity: 1 each Refills: 0 polyethylene glycoL 17 gram Pwpk Commonly known as: Miralax Take 17 g by mouth daily as needed. 17 g Quantity: 14 each Refills: 0 Continued medications with new dosing Dose Details cloNIDine 0.1 mg Tab Commonly known as: Catapres Take 2 tablets by mouth 3 times daily for 30 days. What changed: when to take this 0.2 mg Quantity: 180 tablet Refills: 0 omeprazole 40 mg Cpdr Commonly known as: PriLOSEC Take 40 mg by mouth daily. What changed: Another medication with the same name was removed. Continue taking this medication, and follow the directions you see here. 40 mg Refills: 0 Continued medications, unchanged Dose Details acetaminophen 325 mg Tab Commonly known as: Tylenol Take 2 tablets by mouth every 4 hours as needed for Pain. 650 mg Quantity: 30 tablet Refills: 0 albuteroL 90 mcg/actuation Hfaa Inhale 2 puffs into the lungs every 4 hours as needed. Use with spacer 2 puff Refills: 0 divalproex EC 500 mg Tbec Commonly known as: Depakote Take 500 mg by mouth 2 times daily. 500 mg Refills: 0 metoprolol succinate XL 25 mg Tablet sr Commonly known as: Toprol-XL Take 25 mg by mouth daily. 25 mg Refills: 0 MULTIVITAMIN ORAL Take 1 tablet by mouth daily. 1 tablet Refills: 0 STOPPED Medications ibuprofen 200 mg Tab Commonly known as: Advil naproxen sodium 220 mg Cap Commonly known as: ALEVE Updated Allergies/ADRs: Allergies Allergen Reactions ??? Fentanyl Nausea Only ??? Fluoxetine Other reaction(s): Other ??? Xylocaine In Dextrose 7.5 % [Lidocaine In Dextrose 7.5 %] Other (See Comments) Experienced confusion, sensorium changes, muscle cramps while on lidocaine infusion for pain -> infusion had to be discontinued; would avoid systemic lidocaine in the future. Instructions Given to Patient at Discharge: Future Appointments and Orders Future Appointments and Orders Future Appointments Provider Department Dept Phone 05/17/2022 10:00 AM Tami Horton APRN; Kanu Ash MD Hematology/Oncology at [facility] Arrive at: [facility] door at end of hallway [phone] 05/17/2022 11:00 AM STJ INFUSION, ROOM Hematology Oncology at [facility] Arrive at: [facility] door at end of hallway [phone] 05/17/2022 2:30 PM Criselda Zelaya APRN Palliative Medicine at [facility] Arrive at: Home [phone] Questionnaire(s): To complete any questionnaires for this visit, click here, or visit this website:[email or web address]/[facility] (EDC)/Questionnaires To view instructions for your video visit, click here, or visit this website: [email or web address] Networksits If you have not previously downloaded the Teralynk patient portal software, Istpika, or the [employer] rossana, please do so by clicking one of these links below or searching in your device's rossana store. For all desktops/laptops; for Android devices; for Apple/iOS devices FAQs: Join Video Visit button not connecting? - This may be due to pop-up blockers. - Click this link to see: How to Disable Pop-Up Block for [facility]- Video Visits Zoom asking for a meeting password? - Exit out of the Zoom program and try the link again 05/18/2022 4:00 PM STJ RAD/ONC, TREATMENT Radiation Oncology at [facility] Arrive at: [facility] door at end of hallway [phone] 05/24/2022 1:30 PM Tami Horton APRN Hematology/Oncology at [facility] Arrive at: [facility] door at end of hallway [phone] 05/24/2022 2:00 PM STJ INFUSION, ROOM Hematology Oncology at [facility] Arrive at: [facility] door at end of hallway [phone] 05/25/2022 1:30 PM PFT ROOM 2 Pulmonology at [facility] Arrive at: [facility] [phone] 05/25/2022 2:30 Bishop Diehl MD Thoracic Surgery at [facility] Arrive at: [facility] [phone] 05/31/2022 8:30 AM Tami Horton APRN Hematology/Oncology at [facility] Arrive at: [facility] door at end of hallway [phone] 05/31/2022 9:00 AM STJ INFUSION, ROOM Hematology Oncology at [facility] Arrive at: [facility] door at end of hallway [phone] 06/07/2022 9:30 AM Tami Horton APRN; Kanu Ash MD Hematology/Oncology at [facility] Arrive at: [facility] door at end of hallway [phone] 06/07/2022 10:00 AM STJ INFUSION, ROOM Hematology Oncology at [facility] Arrive at: [facility] door at end of hallway [phone] 06/14/2022 9:00 AM Tami Horton APRN; Kanu Ash MD Hematology/Oncology at [facility] Arrive at: [facility] door at end of hallway [phone] 06/14/2022 9:30 AM STJ INFUSION, ROOM Hematology Oncology at [facility] Arrive at: [facility] door at end of hallway [phone] 06/21/2022 9:30 AM Tami Horton APRN; Kanu Ash MD Hematology/Oncology at [facility] Arrive at: [facility] door at end of hallway [phone] 06/21/2022 10:00 AM STJ INFUSION, ROOM Hematology Oncology at [facility] Arrive at: [facility] door at end of hallway [phone] General Instructions Substance Use Treatment, Harm-Reduction, and Relapse Prevention Resources Residential Treatment: [id number] [address] [address] Intensive Outpatient Program: [address] [phone] Individual Counseling: [address] [address] Geraldine Mccollum, [facility] [address], [address] [place], [place] [id number] Ariella Finnegan, [facility] [address], [place] Offers EMDR Therapy You may also search www.psychologyGreen Box Online Science and Technologyday.Prima Solutions or Desert Biker Magazine for therapists in your area. EMDR Therapy Eye Movement Desensitization and Reprocessing (EMDR) therapy is an extensively researched, effectivepsychotherapy method proven to help people recover from trauma and other distressing life experiences, including PTSD, anxiety, depression, and panic disorders. EMDR therapy does not require talking indetail about the distressing issue or completing homework between sessions. EMDR therapy, rather than focusing on changing the emotions, thoughts, or behaviors resulting from the distressing issue, allows the brain to resume its natural healing process. EMDR therapy is designed to resolve unprocessed traumatic memories in the brain. For many clients, EMDR therapy can be completed in fewer sessions than other psychotherapies. www.emdria.org/kfuei-kczg-vwktjzp/ Medication Assisted Therapy: [employer] [address] [facility], [place] [id number] [address] [facility], [place] [id number] Peer Support Groups Alcoholics Anonymous (AA) [place]: , www.nhaa.net Narcotics Anonymous (NA) [place]: , www.gmana.org [facility] [address] [phone] Online AA and NA Meetings AA, NA, Refuge Recovery, SMART Recovery www.Gravie AA Video Meetings www.aa-intergroup.org/directory_audio-video.php AA Text Chat Meetings www.aa.intergroup.org/directory.php NA Video Meetings www.virtual-na.org/meetings NA Text Chat Meetings Www.neveraloneclub.org SMART Recovery Meetings via Zoom 5:00-6:00pm, free and open to all To join Zoom meetin. Visit www.Yamli 2. Click on calendar on top of toolbar 3. Find the correct meeting date and time 4. Click the zoom link and enter password provided Additional Substance Use Treatment Resources Www.vtaddictionservices.org www.health[place].gov/alcohol-drugs www.okdwjcx450.org/ (Search for Substance Use) www.JAB Broadband.Prima Solutions/ Www.rethinkingdrinking.niaaa.nih.gov/ www.[facility].gov/nzsruiwjni-rcxyiamq-ddnpnratf/willslstlree-wrhuvlw-tlym/treatment -practitioner-shift superintendent caustic cresylate Mental Health Crisis [place] [facility] Crisis Line: Dial [address].[facility].gov/find-help/988 Harm-Reduction Resources Mobile operations. For more information about receiving supplies: including syringe exchange, fentanyl test strips, and naloxone, or to schedule an appointment: [place] clients call and leave a message for Tami (ext. [phone]) or Eric Gonzalez (ext. [phone]). [place] clients call to speak with Eric Leonard Suboxone Emergency Override There is an emergency override requirement on all medications that require prior insurance authorization. If you experience any issues picking up your suboxone prescription at the pharmacy you may request an override. They are required to provide the quantity of suboxone sufficient for 72 hours while the prior insurance authorization is being approved. Online Stress Reduction Resources www.WeLink/videos-features/videos/vggvnerww-rhkmqthdr-3-7-8-breath/ www.Wedge Networks.org/2013/fpzmbhivj-lozyshuqv-traoihh-moment/ www.headspace.Prima Solutions/ www.mindful.org/ www.freemindfulness.org/ Employment Agency [employer] [address] [place] [address] Providing an opportunity for successful employment and recovery by empowering individuals to manage challenges because of substance use addiction and past convictions. Patient Instructions Instructions on Discharge to Home Why you were hospitalized - You were hospitalized to expedite workup of your lung cancer. Several imaging studies were performed, which did not show evidence that the cancer has spread to other parts of the body. An EGD (endoscopy) was also performed, which showed that the cancer has not compressed your esophagus. Finally, you had a scan performed to prepare for radiation therapy; this will be coordinated with your chemotherapy, and may begin as soon as next week. You will be contacted about next steps. We also tried several strategies to control your pain. Unfortunately, you had an adverse reaction tolidocaine given intravenously, with significant sedation and confusion. You should not receive this medication in the future. You are being discharged with Suboxone and gabapentin for pain control, dexamethasone (a steroid) to reduce swelling around the tumor, and clonidine and lorazepam for anxiety. You are being prescribed naloxone as well, which can reverse the effects of opioid overdose; please do not use non-prescribed medications for pain control. You have follow-up with the Palliative Care team in the next week or so, and they will work with you to best manage your symptoms. Call your doctor or seek medical attention if you develop the following - Chest pain, shortness of breath, feeling dizzy upon standing, passing out, diarrhea, constipation lasting longer than 2 days, fevers (temperature over 100.3F), chills, abdominal pain, vomiting, difficulty or discomfort when urinating, bloody or black bowel movements, seizures, or any other acute or concerning symptom. Activity level - No restrictions Diet - No change in previous diet Driving - As before hospitalization. Do not operate vehicle or heavy machinery while taking sedatingmedications, such as lorazepam. Shower/Bath - Permitted Wound Care - None Home Oxygen therapy - Not necessary Your Discharge Medication List Your Medications New Medications Dose Details buprenorphine-naloxone 8-2 mg Film Commonly known as: SUBOXONE Place 24 mg of opiate under the tongue daily. Indications: dependence on opioid- type drugs, prevention of relapse to opioid dependence 24 mg of opiate Quantity: 20 each Refills: 0 dexAMETHasone 4 mg Tab Commonly known as: Decadron Take 2 tablets by mouth every morning AND 1 tablet every evening. Do all this for 30 days. Quantity: 90 tablet Refills: 0 gabapentin 300 mg Cap Commonly known as: Neurontin Take 2 capsules by mouth 3 times daily for 7 days. 600 mg Quantity: 42 capsule Refills: 0 LORazepam 1 mg Tab Commonly known as: Ativan Take 1 tablet by mouth 3 times daily as needed for Anxiety for up to 7 days. 1 mg Quantity: 21 tablet Refills: 0 mirtazapine 7.5 mg Tab Commonly known as: REMERON Take 1 tablet by mouth nightly. 7.5 mg Quantity: 30 tablet Refills: 0 naloxone 4 mg/actuation [place] Commonly known as: Narcan 1 each by Nasal route once as needed for up to 1 dose. 1 each Quantity: 1 each Refills: 0 polyethylene glycoL 17 gram Pwpk Commonly known as: Miralax Take 17 g by mouth daily as needed. 17 g Quantity: 14 each Refills: 0 Continued medications with new dosing Dose Details cloNIDine 0.1 mg Tab Commonly known as: Catapres Take 2 tablets by mouth 3 times daily for 30 days. What changed: when to take this 0.2 mg Quantity: 180 tablet Refills: 0 omeprazole 40 mg Cpdr Commonly known as: PriLOSEC Take 40 mg by mouth daily. What changed: Another medication with the same name was removed. Continue taking this medication, and follow the directions you see here. 40 mg Refills: 0 Continued medications, unchanged Dose Details acetaminophen 325 mg Tab Commonly known as: Tylenol Take 2 tablets by mouth every 4 hours as needed for Pain. 650 mg Quantity: 30 tablet Refills: 0 albuteroL 90 mcg/actuation Hfaa Inhale 2 puffs into the lungs every 4 hours as needed. Use with spacer 2 puff Refills: 0 divalproex EC 500 mg Tbec Commonly known as: Depakote Take 500 mg by mouth 2 times daily. 500 mg Refills: 0 metoprolol succinate XL 25 mg Tablet sr Commonly known as: Toprol-XL Take 25 mg by mouth daily. 25 mg Refills: 0 MULTIVITAMIN ORAL Take 1 tablet by mouth daily. 1 tablet Refills: 0 STOPPED Medications ibuprofen 200 mg Tab Commonly known as: Advil naproxen sodium 220 mg Cap Commonly known as: ALEVE Follow-up: Future Appointments Date Time Provider Department Center 05/17/2022 10:00 AM Kanu Ash MD [facility] 05/17/2022 11:00 AM STJ INFUSION, ROOM [facility] 05/17/2022 2:30 PM Criselda Zelaya APRN [facility] PALL 5B [facility] 05/18/2022 4:00 PM STJ RAD/ONC, TREATMENT [facility] 05/24/2022 1:30 PM Tami Horton APRN [facility] 05/24/2022 2:00 PM STJ INFUSION, ROOM [facility] 05/25/2022 1:30 PM PFT ROOM 2 MH PFT [facility] 05/25/2022 2:30 PM Bishop Kumari MD [facility] THOR 3K [facility] 05/31/2022 8:30 AM Tmai Horton APRN [facility] 05/31/2022 9:00 AM STJ INFUSION, ROOM [facility] 06/07/2022 9:30 AM Kanu Ash MD [facility] 06/07/2022 10:00 AM STJ INFUSION, ROOM [facility] 06/14/2022 9:00 AM Kanu Ash MD [facility] 06/14/2022 9:30 AM STJ INFUSION, ROOM [facility] 06/21/2022 9:30 AM Kanu Ash MD [facility] 06/21/2022 10:00 AM STJ INFUSION, ROOM [facility] You have a telephone appointment with the Palliative Care team on 05/17 at 2:30PM. A nurse from [facility] will also call to check in with you later this week. Finally, you will be contacted by the Radiation Oncology and/or Medical Oncology departments to coordinate your treatment schedule. Please callthese offices if you have not been contacted by the end of this week. Your Inpatient Medical Team at [facility] Name(s) of your inpatient provider(s): Belen Malagon MD; Jeff Bains MD; Fifi Bishop MD; Romeo Price MS4 Your Primary Care Provider: Willam Waite MD [phone] For questions regarding this document or issues relating to this hospitalization on the Medical Service, please contact your inpatient physician through the [facility] Category Director . Issues after hours and on weekends will be handled by the Hospitalist staff on-call. documented in this encounter Discharge Instructions Discharge InstructionsLance Camarena APRN - 05/06/2022 9:52 AM EDT Substance Use Treatment, Harm-Reduction, and Relapse Prevention Resources Residential Treatment: [id number] [address] Intensive Outpatient Program: [facility] [address] [place], [place] [address] Individual Counseling: [facility] [address] [place], [place] [id number] Geraldine Mccollum, [facility] [address] [facility] [address] [place], [place] [id number] Ariella Finnegan, [facility] [address] [place] [address] Offers EMDR Therapy You may also search www.JAB [employer]band.Prima Solutions or Desert Biker Magazine for therapists in your area. EMDR Therapy Eye Movement Desensitization and Reprocessing (EMDR) therapy is an extensively researched, effectivepsychotherapy method proven to help people recover from trauma and other distressing life experiences, including PTSD, anxiety, depression, and panic disorders. EMDR therapy does not require talking indetail about the distressing issue or completing homework between sessions. EMDR therapy, rather than focusing on changing the emotions, thoughts, or behaviors resulting from the distressing issue, allows the brain to resume its natural healing process. EMDR therapy is designed to resolve unprocessed traumatic memories in the brain. For many clients, EMDR therapy can be completed in fewer sessions than other psychotherapies. www.emdria.org/kiqpk-uihi-kfhytbg/ Medication Assisted Therapy: [address] [place] [address] [place] [address] Peer Support Groups Alcoholics Anonymous (AA) [place]: , www.nhaa.net Narcotics Anonymous (NA) [place]: , www.gmana.org Community Peer Support Center [facility] [address] [place] [address] Online AA and NA Meetings AA, NA, Refuge Recovery, SMART Recovery www.Smart Holograms.Prima Solutions AA Video Meetings www.aa-intergroup.org/directory_audio-video.php AA Text Chat Meetings www.aa.intergroup.org/directory.php NA Video Meetings www.virtual-na.org/meetings NA Text Chat Meetings Www.neverjadneclub.org SMART Recovery Meetings via Zoom 5:00-6:00pm, free and open to all To join Zoom meeting: Visit [email or web address].[email or web address] Click on calendar on top of toolbar Find the correct meeting date and time Click the zoom link and enter password provided Additional Substance Use Treatment Resources Www.Recognition PROddictionservices.org www.healthver51.comt.gov/alcohol-drugs www.gulgfgb817.Glad to Have You/ (Search for Substance Use) www.[facility]/ Www.rethinkingdrinking.niaaa.nih.gov/ www.samhsa.gov/kxtddxhnsh-hfxhaqpn-kcffsjbgg/qugzujmudflq-mhwshyq-fndq/treatment -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 For more information about receiving supplies: including syringe exchange, fentanyl test strips, and naloxone, or to schedule an appointment: [place] clients call and leave a message for Tami (ext. 105) or Eric Gonzalez (ext. 104). [place] clients call to speak with Eric Leonard Suboxone Emergency Override There is an emergency override requirement on all medications that require prior insurance authorization. If you experience any issues picking up your suboxone prescription at the pharmacy you may request an override. They are required to provide the quantity of suboxone sufficient for 72 hours while the prior insurance authorization is being approved. Online Stress Reduction Resources www.InternetCorp.Prima Solutions/videos-features/videos/ctbrrqcjs-uduremxba-0-7-8-breath/ www.Prot-Onord.org/2013/pukrrvcxa-lffgypurh-vagpkhm-moment/ www.SmartCrowds.Prima Solutions/ www.mindful.org/ www.freeUXArmy.org/ Employment Agency [employer] [address] [facility] [address] [place] [address] Providing an opportunity for successful employment and recovery by empowering individuals to manage challenges because of substance use addiction and past convictions. Patient Jeff Hill MD - 05/11/2022 2:35 PM EDT Instructions on Discharge to Home Why you were hospitalized - You were hospitalized to expedite workup of your lung cancer. Several imaging studies were performed, which did not show evidence that the cancer has spread to other parts of the body. An EGD (endoscopy) was also performed, which showed that the cancer has not compressed your esophagus. Finally, you had a scan performed to prepare for radiation therapy; this will be coordinated with your chemotherapy, and may begin as soon as next week. You will be contacted about next steps. We also tried several strategies to control your pain. Unfortunately, you had an adverse reaction tolidocaine given intravenously, with significant sedation and confusion. You should not receive this medication in the future. You are being discharged with Suboxone and gabapentin for pain control, dexamethasone (a steroid) to reduce swelling around the tumor, and clonidine and lorazepam for anxiety. You are being prescribed naloxone as well, which can reverse the effects of opioid overdose; please do not use non-prescribed medications for pain control. You have follow-up with the Palliative Care team in the next week or so, and they will work with you to best manage your symptoms. Call your doctor or seek medical attention if you develop the following - Chest pain, shortness of breath, feeling dizzy upon standing, passing out, diarrhea, constipation lasting longer than 2 days, fevers (temperature over 100.3F), chills, abdominal pain, vomiting, difficulty or discomfort when urinating, bloody or black bowel movements, seizures, or any other acute or concerning symptom. Activity level - No restrictions Diet - No change in previous diet Driving - As before hospitalization. Do not operate vehicle or heavy machinery while taking sedatingmedications, such as lorazepam. Shower/Bath - Permitted Wound Care - None Home Oxygen therapy - Not necessary Your Discharge Medication List Your Medications New Medications Dose Details buprenorphine-naloxone 8-2 mg Film Commonly known as: SUBOXONE Place 24 mg of opiate under the tongue daily. Indications: dependence on opioid- type drugs, prevention of relapse to opioid dependence 24 mg of opiate Quantity: 20 each Refills: 0 dexAMETHasone 4 mg Tab Commonly known as: Decadron Take 2 tablets by mouth every morning AND 1 tablet every evening. Do all this for 30 days. Quantity: 90 tablet Refills: 0 gabapentin 300 mg Cap Commonly known as: Neurontin Take 2 capsules by mouth 3 times daily for 7 days. 600 mg Quantity: 42 capsule Refills: 0 LORazepam 1 mg Tab Commonly known as: Ativan Take 1 tablet by mouth 3 times daily as needed for Anxiety for up to 7 days. 1 mg Quantity: 21 tablet Refills: 0 mirtazapine 7.5 mg Tab Commonly known as: REMERON Take 1 tablet by mouth nightly. 7.5 mg Quantity: 30 tablet Refills: 0 naloxone 4 mg/actuation [place] Commonly known as: Narcan 1 each by Nasal route once as needed for up to 1 dose. 1 each Quantity: 1 each Refills: 0 polyethylene glycoL 17 gram Pwpk Commonly known as: Miralax Take 17 g by mouth daily as needed. 17 g Quantity: 14 each Refills: 0 Continued medications with new dosing Dose Details cloNIDine 0.1 mg Tab Commonly known as: Catapres Take 2 tablets by mouth 3 times daily for 30 days. What changed: when to take this 0.2 mg Quantity: 180 tablet Refills: 0 omeprazole 40 mg Cpdr Commonly known as: PriLOSEC Take 40 mg by mouth daily. What changed: Another medication with the same name was removed. Continue taking this medication, and follow the directions you see here. 40 mg Refills: 0 Continued medications, unchanged Dose Details acetaminophen 325 mg Tab Commonly known as: Tylenol Take 2 tablets by mouth every 4 hours as needed for Pain. 650 mg Quantity: 30 tablet Refills: 0 albuteroL 90 mcg/actuation Hfaa Inhale 2 puffs into the lungs every 4 hours as needed. Use with spacer 2 puff Refills: 0 divalproex EC 500 mg Tbec Commonly known as: Depakote Take 500 mg by mouth 2 times daily. 500 mg Refills: 0 metoprolol succinate XL 25 mg Tablet sr Commonly known as: Toprol-XL Take 25 mg by mouth daily. 25 mg Refills: 0 MULTIVITAMIN ORAL Take 1 tablet by mouth daily. 1 tablet Refills: 0 STOPPED Medications ibuprofen 200 mg Tab Commonly known as: Advil naproxen sodium 220 mg Cap Commonly known as: ALEVE Follow-up: Future Appointments Date Time Provider Department Center 05/17/2022 10:00 AM Kanu Ash MD [facility] 05/17/2022 11:00 AM STJ INFUSION, ROOM [facility] 05/17/2022 2:30 PM Criselda Zelaya APRN [facility] PALL 5B [facility] 05/18/2022 4:00 PM STJ RAD/ONC, TREATMENT [facility] 05/24/2022 1:30 PM Tami Horton APRN [facility] 05/24/2022 2:00 PM STJ INFUSION, ROOM [facility] 05/25/2022 1:30 PM PFT ROOM 2 PFT [facility] 05/25/2022 2:30 PM Bishop Kumari MD [facility] THOR 3K [facility] 05/31/2022 8:30 AM Tami Horton APRN [facility] 05/31/2022 9:00 AM STJ INFUSION, ROOM [facility] 06/07/2022 9:30 AM Kanu Ash MD [facility] 06/07/2022 10:00 AM STJ INFUSION, ROOM [facility] 06/14/2022 9:00 AM Kanu Ash MD [facility] 06/14/2022 9:30 AM STJ INFUSION, ROOM [facility] 06/21/2022 9:30 AM Kanu Ash MD [facility] 06/21/2022 10:00 AM STJ INFUSION, ROOM [facility] You have a telephone appointment with the Palliative Care team on 05/17 at 2:30PM. A nurse from [facility] will also call to check in with you later this week. Finally, you will be contacted by the Radiation Oncology and/or Medical Oncology departments to coordinate your treatment schedule. Please callthese offices if you have not been contacted by the end of this week. Your Inpatient Medical Team at [facility] Name(s) of your inpatient provider(s): Belen Malagon MD; Jeff Bains MD; Fifi Bishop MD; Romeo Price MS4 Your Primary Care Provider: Willam Waite MD [phone] For questions regarding this document or issues relating to this hospitalization on the Medical Service, please contact your inpatient physician through the [facility] Category Director . Issues after hours and on weekends will be handled by the Hospitalist staff on-call. documented in this encounter Medications at Time of Discharge Medication Sig Dispensed Refills Start Date End Date polyethylene glycoL Take 17 g by mouth 14 each 0 05/11/20 22 (Miralax) 17 gram Powder daily as needed. in Packet naloxone (Narcan) 4 1 each by Nasal 1 each 0 05/11/2022 mg/actuation [place], route once as needed Non-Aerosol for up to 1 dose. omeprazole (PriLOSEC) 40 Take 40 mg by mouth 0 mg Capsule, Delayed daily. Release(E.C.) MULTIVITAMIN ORAL Take 1 tablet by 0 mouth daily. albuterol (PROVENTIL Inhale 2 puffs into 0 HFA;VENTOLIN HFA) 90 the lungs every 4 mcg/Actuation inhaler hours as needed. Use with spacer gabapentin (Neurontin) Take 2 capsules by 42 capsule 0 05/1105/17/2022 300 mg Capsule mouth 3 times daily for 7 days. mirtazapine (REMERON) Take 1 tablet by 30 tablet 0 05/11/20 22 05/17/2022 7.5 mg Tablet mouth nightly. LORazepam (Ativan) 1 mg Take 1 tablet by 21 tablet 0 202105/17/2022 Tablet mouth 3 times daily as needed for Anxiety for up to 7 days. dexAMETHasone (Decadron) Take 2 tablets by 90 tablet 0 04/2306/27/2022 4 mg Tablet mouth every morning AND 1 tablet every evening. Do all this for 30 days. cloNIDine (Catapres) 0.1 Take 2 tablets by 180 tablet 0 04/2306/27/2022 mg Tablet mouth 3 times daily for 30 days. buprenorphine-naloxone Place 24 mg of 20 each 0 2 05/17/2022 (SUBOXONE) 8-2 mg opiate under the FilmIndications: opioid tongue daily. dependence, prevention Indications: of relapse to opioid dependence on dependence opioid-type drugs, prevention of relapse to opioid dependence metoprolol succinate XL Take 25 mg by mouth 0 06/27/2022 (Toprol-XL) 25 mg Tablet daily. Sustained Release 24 hr divalproex EC (Depakote) Take 500 mg by mouth 0 06/27/2022 500 mg Tablet, Delayed 2 times daily. Release (E.C.) acetaminophen (TYLENOL) Take 2 tablets by 30 tablet 0 06/1706/04/2022 325 mg tablet mouth every 4 hours as needed for Pain. documented as of this encounter Progress Notes Abdelrahman Pena RN - 05/12/2022 2:53 AM EDT OUTCOME EVALUATION NOTE: OUTCOME SUMMARY: Alert and oriented. Forgetful. Wondering out of room at times needing redirection. Cooperative with care. Vitals as charted on RA. Ongoing COWS assessment. Patient agreed to be on tele monitoring. NSR with some PVC's. Refusing masimo- spot checks. Reporting left arm pain- medicated with scheduled gabapentin, tylenol, and PRN dilaudid with some effect. Continues on Suboxone. PLAN MOVING FORWARD: Decadron Pain control D/c planning INDIVIDUALIZED FALL PREVENTION INTERVENTIONS: Patient-specific fall risk factors per assessment: [current deficits]: Hospital environment, forgetfulness Assistance [level of assistance required for transfers and ambulation]: Eyes on- refusing high fall risk interventions Supervision [direct monitoring required during toileting and ADLs]: Eyes on Surveillance [continuous indirect monitoring]: Refusing masimo- spot checks, telemetry Patient-specific fall prevention interventions for sensory deficits provided, if applicable: [X] N/A CARE PLAN GOAL OUTCOME EVALUATION: Belen Malagon MD - 05/11/2022 6:24 PM EDT Inpatient Medicine Progress Note Active Hospital Problems: Hospital Day 6 days Active Hospital Problems Diagnosis ??? Lung mass Resolved Hospital Problems No resolved problems to display. ID: [id number] y.o. male with a PMH of PSUD presenting w L shoulder pain iso known large apical lung mass. Subjective: Lidocaine drip started yesterday - this am more somnolent, jittery, following commands. Initially had planned CT but after discontinuing lidocaine drip he woke up and declined (given symptoms quite consistent with lidocaine effect and return to baseline cancelled CT) He requested discharge -- while we do not think this is a good idea given uncontrolled pain we did not feel this would meet criteria for an against medical advice discharge Patient eloped but found by security and brought back to room for IV removal - suboxone, ativan, gabapentin to be prescribed and he will have close FU with palliative care. Plan for XRT as an outpatient Vitals: Last value Range last 24 hrs Temperature Temp: 37 ??C (98.6 ??F) Temp: [36.5 ??C (97.7 ??F)-37.3 ??C (99.2 ??F)] Heart Rate Heart Rate: 68 Heart Rate: -- Blood Pressure BP: (!) 174/119 BP: (145-194)/(86-132) Respiratory Rate Resp: 24 Resp: [14-24] SpO2 SpO2: 96 % SpO2: [94 %-99 %] 05/10 0701 - 05/11 0700 In: 1100 [P.O.:1100] Out: 300 [Urine:300] Wt (last/admit) 77.1 kg (169 lb 15.6 oz) 77.1 kg Ins/Outs: Intake/Output Summary (Last 24 hours) at 05/11/2022 1824 Last data filed at 05/11/2022 1200 Gross per 24 hour Intake 1300 ml Output 300 ml Net 1000 ml Physical Exam: GENERAL: Well-nourished male appears stated age,agitated, psychomotor agitation, anxious HEENT: EOMI CHEST/CARDIO: RRR, no murmurs appreciated RESPIRATORY: lungs CTA BL ABD/GI/: Soft, NT/ND, normoactive BS EXTREMITIES: No peripheral edema Labs: CBC: Recent Labs 05/11/22 0450 05/10/22 0252 05/09/22 0545 WBC 9.5 9.3 8.7 HGB 13.2* 12.8* 13.6* PLATELET 256 264 279 Chemistry: Recent Labs 05/11/22 0450 05/10/22 0252 05/09/22 0545 NA 139 139 137 K 4.6 4.6 4.3 CL 103 106 105 CO2 27 26 24 BUN 25* 24* 23* CREATININE 0.86 0.80 0.75* GLUCOSE 134 163 190 Recent Labs 05/11/22 0450 05/10/22 0252 05/09/22 0545 05/05/22 0720 05/04/22 1550 CALCIUM 8.9 8.5 8.4* < > 9.3 MAGNESIUM -- -- -- -- 0.89 PHOS -- -- -- -- 3.4 < > = values in this interval not displayed. LFT's: Recent Labs 05/11/22 0450 05/05/22 0720 05/04/22 1550 BILITOT <0.2* 0.4 0.3 ALBUMIN 3.8 3.9 4.3 ALKPHOS 121 79 86 ALT 47 37 38 AST 35 37 36 Coags: No results for input(s): PT, INR, PTT, FIBRINOGEN, DDIMER in the last 168 hours. Invalid input(s): THROMBIN TIME Cardiac enzymes: Recent Labs 05/10/22 2250 05/04/22 1550 TROPONINT <0.01 <0.01 Endocrine: No results for input(s): TSH, CORTISOL in the last 7068 hours. Invalid input(s): TSTNALBQKCI3W No results for input(s): HA1C in the last 7068 hours. Heme: Recent Labs 05/05/22 0720 LDH 214 Lipids: Imaging/Studies: Results for orders placed or performed during the hospital encounter of 05/04/22 XR Chest PA & Lateral (Generic) (Exam End: 05/04/2022 3:38 PM) Impression 1. Stable left upper lobe paramediastinal mass. 2. No superimposed acute cardiopulmonary process. Thank you for letting us participate in the care of this patient. If you are a health care provider and have any questions regarding this report, please contact the number below. For patients who have questions please contact the health nurse care manager that requested your imaging first. Chest w Contrast (Exam End: 05/04/2022 5:59 PM) Impression 1. Unchanged size of left upper mediastinal [...] centrilobular emphysema. No pneumothorax or pleural effusions. Thank you for letting us participate in the care of this patient. If you are a health care provider and have any questions regarding this report, please contact the number below. For patients who have questions please contact the health nurse care manager that requested your imaging first. Cervical Spine wwo Contrast (Exam End: 05/04/2022 9:40 PM) Impression 1. Left lung apex mass extending to the scalene triangle, paraspinous soft tissues and superior mediastinum. 2. There is a involvement of the T1 and T2 vertebral bodies, the left C7-T1 through T3-T4 neural foramina and the epidural space on the left in the upper thoracic spine. 3. There is a evidence of vascular encasement of the left vertebral artery and partial encasement of the left subclavian artery. The superior margin of the mass projects along the course of the left brachial plexus. This would be better assessed with dedicated brachial plexus imaging. 4. Changes of cervical spondylosis as described. Thank you for letting us participate in the care of this patient. If you are a health care provider and have any questions regarding this report, please contact the number below. For patients who have questions please contact the health nurse care manager that requested your imaging first. Thoracic Spine wwo Contrast (Exam End: 05/04/2022 9:40 PM) Impression 1. Left lung apex mass extending to the scalene triangle, paraspinous soft tissues and superior mediastinum. 2. There is a involvement of the T1 and T2 vertebral bodies, the left C7-T1 through T3-T4 neural foramina and the epidural space on the left in the upper thoracic spine. 3. There is a evidence of vascular encasement of the left vertebral artery and partial encasement of the left subclavian artery. The superior margin of the mass projects along the course of the left brachial plexus. This would be better assessed with dedicated brachial plexus imaging. 4. Changes of cervical spondylosis as described. Thank you for letting us participate in the care of this patient. If you are a health care provider and have any questions regarding this report, please contact the number below. For patients who have questions please contact the health nurse care manager that requested your imaging first. Brain wwo Contrast (Generic) (Exam End: 05/05/2022 8:51 AM) Impression No evidence of intracranial metastatic disease. No acute intracranial processes identified. I have personally reviewed the image(s) and the resident's interpretation and agree with the findings, Bishop Otto at 05/05/2022 10:31 AM Thank you for letting us participate in the care of this patient. If you are a health care provider and have any questions regarding this report, please contact the number below. For patients who have questions please contact the health nurse care manager that requested your imaging first. Abdomen & Pelvis w Contrast (Exam End: 05/05/2022 11:27 AM) Impression No metastatic disease identified in the abdomen and pelvis. Thank you for letting us participate in the care of this patient. If you are a health care provider and have any questions regarding this report, please contact the number below. For patients who have questions please contact the health nurse care manager that requested your imaging first. Brachial Plexus w Contrast Left (Exam End: 05/07/2022 8:25 PM) Impression Large mesial left apical lung mass extending to the lower cervical and upper thoracic spine epidural space and left foramina, surrounding the C8 and T1 nerve roots. Thank you for letting us participate in the care of this patient. If you are a health care provider and have any questions regarding this report, please contact the number below. For patients who have questions please contact the health nurse care manager that requested your imaging first. Rad Onc Chest Interp Only (Exam End: 05/10/2022 12:09 PM) Impression 1. CT obtained for radiation therapy planning purposes. 2. Please see separate CT of the head and neck interpretation Thank you for letting us participate in the care of this patient. If you are a health care provider and have any questions regarding this report, please contact the number below. For patients who have questions please contact the health nurse care manager that requested your imaging first. Scheduled Medications: ??? cloNIDine 0.2 mg Oral TID ??? LORazepam 1 mg Oral Q6H ??? aspirin 325 mg Oral Daily ??? buprenorphine-naloxone 4 mg of opiate Sublingual 4 Times Daily ??? mirtazapine 7.5 mg Oral Nightly ??? ketorolac 15 mg Intravenous Q6H ??? gabapentin 400 mg Oral TID ??? divalproex EC 500 mg Oral BID ??? multivitamin with minerals 1 tablet Oral Daily ??? pantoprazole EC 40 mg Oral Daily ??? enoxaparin 40 mg Subcutaneous Nightly ??? metoprolol tartrate 12.5 mg Oral 2 times per day ??? senna-docusate 2 tablet Oral BID ??? dexAMETHasone 4 mg Oral 2 times per day ??? acetaminophen 975 mg Oral TID PRN Medications: naloxone, HYDROmorphone, labetaloL, ondansetron OR ondansetron, hydrOXYzine, ipratropium-albuteroL, albuteroL, HYDROmorphone, polyethylene glycoL (MIRALAX) oral powder, melatonin Assessment & Plan: 56 y.o. male known lung mass and history of OUD presenting with progressive, uncontrolled left-sidedneck, torso, and arm pain as well as reported neurologic symptoms. Imaging showing extension of the mass with involvement of the T1/T2 vertebral bodies, left C7-T1 through T3-T4 neural formina and epidural space on the left upper thoracic spine. Also with vascular encasement of the left vertebral artery and partial encasement of the left subclavian artery. Although there were not overt signs of left-sided upper extremity weakness on exam, patient and family reports that he has been dropping objects from the left hand. He also has numbness and paresthesias. Neurosurgery recommended dexamethasone 4mg BID along with NSAIDs and gabapentin. GI was consulted to perform EGD/EUS to determine local invasion of esophagus. Hem/onc concluded the tumor is unresectable and will facilitate chemotherapy outpatient. Rad onc will also pursue radiation therapy on an outpatient basis and will begin the setup for these interventions as early as Tuesday Lidocaine drip started yesterday - this am more somnolent, jittery, following commands. Initially had planned CT but after discontinuing lidocaine drip he woke up and declined (given symptoms quite consistent with lidocaine effect and return to baseline cancelled CT) He requested discharge -- while we do not think this is a good idea given uncontrolled pain we did not feel this would meet criteria for an against medical advice discharge Patient eloped but found by security and brought back to room for IV removal - suboxone, ativan, gabapentin to be prescribed and he will have close FU with palliative care. Plan for XRT as an outpatient Dr Bains discussed with x 2 - she is aware while we don't recommend discharge he has medical capacity to leave the hospital may or may not be able to pick him up tonight. Patient states that his nephew will pick him up tonight (which may or may not happen) All medications were sent by Dr Herson MALAGON MD Blue Team Pager [phone] 05/11/22 Maylin Lepe RN - 05/11/2022 5:44 PM EDT At 8am patient began to have altered LOC, with delayed and jerking muscle response, and confusion. Lidocaine gtt stopped immediately. Team and life safety notified. VBG obtained and not concerning. Head CT ordered but refused by patient. Symptoms began to improve after DC of lidocaine. Patient placedon bed alarm after am events due to weakness and poor muscle control. Patient became increasingly agitated with bed alarm and eventually figured out how to turn off bed alarm. RN informed patient that he should not be touching alarms as they were for the patient's safety. Team in patient's room at 1400, RN went to break shortly after. Upon return copywriter noticed that patient was not in his room. hemodialysis lab technician, Security, and Team notified. RN and SOLUTIONS SALES CONSULTANT attempted to locate patient. The patient did eventuallyreturn. He was soaked with sweat and stated that he was unaware that he could not leave the hospitalwithout informing staff. When patient was informed that he was observed entering a vehicle on hospital security footage he stated I was just looking to bum a cigarette. IV immediately removed upon return to the unit and room searched by security. Patient observed wandering into another patient's room at 1800, redirected back to his own room. At this time patient is refusing bed alarm, refusing medic ations, and refusing to allow staff to apply new hospital bracelet. Patient is still sure that someone in his family will be picking him up tonight. Surya Yanez - 05/11/2022 12:27 PM EDT Massage and/or Reiki offered by EDILBERTO Tanner but Carley declined for today. Healing Arts Team will check in another day. Whitney Batres MD - 05/11/2022 11:47 AM EDT Palliative Care Daily Progress Note NAME: Carley Palomares Encounter Date: 05/11/2022 Inpatient Attending: Belen Malagon MD PCP: Willam Waite MD Hospital day: Hospital Day 6 days ID: Carley Palomares is a 56 y.o. 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 He continues to be followed by the [facility] service for pain management and concurrent ISABELLA. Interval History: -Carley developed progressive sensory changes in the director alliance marketing along with confusion and muscle cramps -> lidocaine infusion stopped just after 8am -Of note, his pain was better controlled when on the lidocaine infusion -His mentation gradually improved as the morning went on; Carley was aware of his confusion and was very distressed by the way he felt in the director alliance marketing Physical sx/ROS: If not discussed, please delete pull-down menu or answer ???not assessed?? 0 = no symptoms or feeling well -> 10 = worst possible (ex. 0 = best appetite, 10 = worst lack ofappetite) Pain history: Physical symptoms/ROS: 0 = no symptoms or feeling well -> 10 = worst possible (ex. 0 = best appetite, 10 = worst lack ofappetite) Carley was distressed in the context of his experience with the lidocaine, so our visit focused on support and emotional de-escalation as opposed to rating of symptoms -Shakiness/unsteadiness from lidocaine gtt now improving; notes that he felt numb all over like hecouldn't feel his body which was not a good feeling -Cancer-related pain was in a similar state of severity and distribution as yesterday -Continues to think that IV opioids had a better effect; also asked for oxycodone and OxyContin on discharge; expressed that he does not feel pain relief effects with Suboxone in the same way as hoped -Did note positive effects for anxiety and overall wellbeing with lorazepam which was helpful in making -BM in the past 48 hours?: Yes *Due for BM -> last BM 05/08 Emotional/coping/counseling: Met with Calrey twice- first in the morning as the lidocaine was still wearing out of his system and then later in the afternoon, accompanied by members of his primary medical team. In the afternoon, he had called the palliative clinic asking to be discharged from the hospital. Carley was upset and tearful at times during both visits, distressed by his impressions of his pain and that there was not a fix for this in the short-term. He feels like he has lost dignity during the ups and downs of his care over the last few days. In focusing back on his goals of getting to cancer treatments and our desire to support him in having safe pain management options which can continue outside of the hospital, Carley was able to reengage in conversation. He spoke about his plans to live with his daughter Ever who had been present during the video visit with Criselda and had taken thorough notes. Carley is motivated to do well for her (and to stay alive) and knows that she will be a positive support in his life through this process. He was amenable to our plan to increase Suboxone dosingas well as gabapentin while continuing the other medications that have been helpful for his symptomswith the exception of short acting full agonist opioids. I emphasized again that Suboxone is a very e ffective pain medication and is a safe pain medication for him. In the following days we hope that the pain effects from that medication are able to be better appreciated by him. Relevant Palliative Care Medications: Scheduled: Lidocaine infusion started on 05/10 @ 1504 -> discontinued 2/2 side effects @ 0814 today Suboxone 4mg QID (increased from BID on PM of 05/09) Clonidine 0.2mg TID Gabapentin 400mg TID Lorazepam 1mg q6h Mirtazapine 7.5mg qHS PRNs (including 24 hour usage): Atarax 25mg x1 IV valium 5mg x1 IV hydromorphone 1mg x2; PO 4mg x8 05/09-05/10: 192 OME 05/10-05/11: 168 OME Social History/Context: Reviewed. No relevant changes Physical Examination: Patient Vitals for the past 24 hrs: Temp Heart Rate From SP02 Pulse Resp BP SpO2 O2 Device 05/10/22 1503 -- 62 bpm 62 18 110/72 98 % RA 05/10/22 1537 -- 68 bpm 68 18 139/76 97 % RA 05/10/22 1628 37 ??C (98.6 ??F) 68 bpm 68 18 129/81 97 % RA 05/10/22 1958 36.9 ??C (98.5 ??F) 67 bpm -- 20 145/86 99 % RA 05/10/222223 37.2 ??C (99 ??F) 82 bpm -- 14 (!) 160/112 99 % -- 05/10/222237 -- -- -- -- (!) 191/132 -- -- 05/10/222239 -- -- -- -- (!) 194/130 -- -- 05/10/222244 -- -- -- -- (!) 182/101 -- -- 05/10/222256 -- -- -- -- (!) 179/106 -- -- 05/10/222299 -- 83 bpm -- -- -- 95 % -- 05/10/222300 -- 82 bpm -- -- -- 94 % -- 05/10/222301 -- 74 bpm -- -- -- 95 % -- 05/10/222302 -- 72 bpm -- -- -- 97 % -- 05/10/222303 -- 76 bpm -- -- -- 95 % -- 05/10/222304 -- 74 bpm -- -- (!) 163/93 97 % -- 05/10/222305 -- 69 bpm -- -- -- 97 % -- 05/10/222306 -- 72 bpm -- -- -- 98 % -- 05/10/222307 -- 70 bpm -- -- -- 98 % -- 05/10/222308 -- 67 bpm -- -- -- 96 % -- 05/10/222309 -- 68 bpm -- -- -- 97 % -- 05/10/222310 -- 74 bpm -- -- -- 96 % -- 05/10/222311 -- 69 bpm -- -- -- 95 % -- 05/10/222312 -- 63 bpm -- -- -- 97 % -- 05/10/222313 -- 69 bpm -- -- -- 95 % -- 05/10/22 2315 -- 68 bpm -- -- (!) 147/93 95 % -- 05/10/22 2316 36.7 ??C (98 ??F) 69 bpm -- -- (!) 147/93 96 % -- 05/10/22 2321 -- 71 bpm -- -- -- -- -- 05/11/22 0405 36.5 ??C (97.7 ??F) 78 bpm -- 22 (!) 165/102 99 % RA 05/11/22 0728 37.3 ??C (99.2 ??F) 68 bpm -- 22 (!) 158/100 98 % RA 05/11/22 1112 37.1 ??C (98.7 ??F) 64 bpm -- 22 (!) 150/97 96 % RA GEN: Well-nourished middle-aged man pacing the room, anxious and tearful NEURO: Some tremor and unsteadiness noted in the morning which improved later in the day PSYCH: Awake and alert, tearful and frustrated when speaking about symptoms and wish to go home, speech with normal rate and pattern Labs/Radiology: relevant interval data reviewed, pertinent results include: MRI Left brachial plexus 05/07: Large mesial left apical lung mass extending to the lower cervical and upper thoracic spine epidural space and left foramina, surrounding the C8 and T1 nerve roots. 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 He continues to be followed by the Palliative Care service for pain management and concurrent ISABELLA. Carley's pain control is influenced by multiple factors including ongoing nerve root irritation, anxiety, and substance withdrawal. It is important that we continue to validate and support his pain experience, offering safe options and helping him recognize what his mind/receptors are doing which he cannot be conscious of. Suboxone continues to offer the safest option to manage his pain which is also most likely to be efficacious. Unfortunately, he had a less common reaction to the lidocaine infusion and sensorium changes and should not receive lidocaine in the future for neuropathic pain management. Prior to discharge, coordinated closely with outpatient palliative care Criselda Zelaya APRN to confirm that current discharge medication plan will be sustainable outside of the hospital. Carley remainsat high risk for ongoing substance use during the stressful time and in the setting of high cancer re lated symptom burden. Palliative care will offer close interdisciplinary follow-up. Plan/Recommendations: #Acute cancer-related C8-T1 nerve root pain 2/2 pancoast tumor -Appreciate prompt discontinuation of lidocaine infusion -> added adverse reaction to allergy list -INCREASE buprenorphine to 8mg and provide dose prior to discharge -> suboxone rx to bridge to follow-up will be done by Criselda Zelaya APRN as his new outpatient prescriber -> Naloxone also prescribed at nv -Would also INCREASE gabapentin to 600 mg 3 times daily and request 1 week supply be sent at discharge -Also recommend 1 week supply of clonidine, lorazepam, and dexamethasone with goal of supporting patient to get to therapy next week -Palliative will follow closely with RN symptom/safety check at the end of the week #Palliative care encounter #Serious Illness coping support -Will continue to provide emotional support to Carley on his journey, validating his concerns -Appreciate HEMATOLOGY NURSE EDUCATOR support -Will consider additional supports for Carley while he is still inpatient Palliative Care follow-up plan: Medical team Nursing team Psychosocial Support Inpatient Daily for symptoms HEMATOLOGY NURSE EDUCATOR Outpatient OP follow-up with Criselda on 05/17 at 2:30 IP front end assistant will follow-up with Carley laterin the week This was a 40 minute encounter with 30 minutes spent on the unit throughout the day with the patientdedicated to providing counseling for symptom management in the setting of ISABELLA and safe medication planning for discharge; additional time spent in care coordination with the primary medical team and palliative medicine IDT members. Whitney Batres MD Palliative care team pager #[phone] Leighton Moncada RN - 05/11/2022 12:57 AM EDT OUTCOME EVALUATION NOTE: OUTCOME SUMMARY: Patient c/o CP at 2225, MD notified, Life safety RN notified. Per MD o2 place on patient, ASA and Nitro SL given x1 with positive effect 1mg IV dilaudid given. EKG NSR and Trops drawn and were negativepatient placed on tele. Pain subsiding in patient patient AXOx4 but wifty in Short term memory. Lidocaine GTT infusing till 4pm tommorow, refuses bed alarm but calls appropriatly, compliant with tele and NSR overnight and Masimo initially but removed Masimo and refused bed alarms. Vitals remain stable. WCTM. PLAN MOVING FORWARD: Pain control INDIVIDUALIZED FALL PREVENTION INTERVENTIONS: Patient-specific fall risk factors per assessment: [current deficits]: IV, hospital enviroment, recent fall Assistance [level of assistance required for transfers and ambulation]: SB Supervision [direct monitoring required during toileting and ADLs]: Eyes on Surveillance [continuous indirect monitoring]: Masimo, Tele Patient-specific fall prevention interventions for sensory deficits provided, if applicable: [X] No CPG GOAL OUTCOME EVALUATION: Whitney Batres MD - 05/10/2022 3:02 PM EDT Palliative Care Daily Progress Note NAME: Carley Palomares Encounter Date: 05/10/2022 Inpatient Attending: Belen Mlaagon MD PCP: Willam Waite MD Hospital day: Hospital Day 5 days ID: Carley Palomares is a 56 y.o. 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 He continues to be followed by the [facility] service for pain management and concurrent ISABELLA. Interval History: Beginning on Tuesday, Carley has reported increasing pain. He had difficulty tolerating the radiation simulation earlier today because of his uncontrolled pain despite escalating opioid doses and increased increased doses of Suboxone. He did express to the primary team interested in leaving AMA while hispain was poorly controlled trying to get through simulation. Physical sx/ROS: If not discussed, please delete pull-down menu or answer ???not assessed?? 0 = no symptoms or feeling well -> 10 = worst possible (ex. 0 = best appetite, 10 = worst lack ofappetite) Pain history: Pain: 8 Location: Stable location involving the left arm, upper back/axilla, left neck, and left anterior chest Description: Radiates from axilla to other locations as above Intensity: 8-9/10 when uncontrolled, severe enough to make him cry Temporality: Constant Effect on function: Unable to sleep Aggravating factors: Arm positioning for the simulation Alleviating factors: IV hydromorphone offers 30-45 minutes of relief, he does not think the PO version works as well, unsure of how the suboxone is helping Pain/functional goals: Goal of 3-4/10 -> low enough that it is more of an ache and is comfortableenough to allow him to sleep Constipation: 0 BM in the past 48 hours?: Yes Last on 05/08 Lack of appetite: Not assessed today Nausea: Not assessed today Wellbeing: Patient declined/provider unable to rate Poor 2/2 pain control Anxiety: Patient declined/provider unable to rate Feels anxious in relation to pain control, uncertainty about when he will feel better Drowsiness: 0 Sleep: Unable to sleep 2/2 pain and needing to stay on top of taking prn pain medications Emotional/coping/counseling: I validated Carley's pain experience in relation to his known tumor and talked about the many complex ways he is experiencing pain at this time and how his body is wired to experience pain in a way that is unique to him. Reviewed relevant strength of suboxone compared to oother opioids as well as its benefit for nerve pain and safety both in and outside of the hospital. Spoke about the different ways the IV and short-acting opioids can make him feel better in ways which are separate from there to painrelieving effects and that this is not something he is choosing or necessarily conscious of. Shared recommendation to start ativan (appreciated good effect for pain and anxiety with the IV valium) and to start a 24h lidocaine infusion as a pain control bridge while we see if we are able to get his radiation treatment started sooner. He expressed frustration feeling like he is being judged by staff when he asks for pain medicine before he is next due. He just wants to feel better and is exhausted. I emphasized our dedication to treating him as a whole person and how we NEVER want him to feel judged for his physical symptoms or past medical history. It is critical that he let staff know when he is in pain so we can try to find a plan that works better for him. Carley appreciated our support and agreed to the plan outlined for the next 24h. Relevant Palliative Care Medications: Scheduled: Suboxone 4mg QID (increased from BID on PM of 05/09) Clonidine 0.2mg BID Gabapentin 400mg TID Mirtazapine 7.5mg qHS PRNs (including 24 hour usage): Atarax 25mg x4 Zofran x2 IV hydromorphone 1mg x4; PO 4mg x7 -> 192 OME/24h Social History/Context: Reviewed. No relevant changes Physical Examination: Patient Vitals for the past 24 hrs: Temp Heart Rate From SP02 Pulse Resp BP SpO2 O2 Device 05/09/22 1734 -- -- -- -- 129/79 -- -- 05/09/22 1930 37.1 ??C (98.8 ??F) 59 bpm 64 18 120/74 98 % RA 05/09/22 2043 -- -- -- -- (!) 163/108 -- -- 05/10/22 0011 36.6 ??C (97.9 ??F) 63 bpm -- 20 151/85 99 % RA 05/10/22 0303 36.7 ??C (98.1 ??F) 66 bpm -- 18 126/76 98 % RA 05/10/22 0713 36.6 ??C (97.8 ??F) 60 bpm -- 18 (!) 160/102 100 % RA 05/10/22 0930 -- -- -- -- -- -- RA GEN: Well-nourished middle-aged man laying in bed, appears uncomfortable but able to speak and answer questions, emotional when speaking about pain journey HEENT: NCAT, sclera anicteric, pupils symmetric, oral mucosa moist CV: All extremities warm and well perfused RESP: Nonlabored breathing on room air, no accessory muscle use, symmetric chest rise, no cough GI/: Nondistended abdomen, voiding freely SKIN: Normal color and texture of ethnic group, no visible wounds or lesions MUSCULOSKELETAL: Restricts movement of left arm 2/2 pain NEURO: Face symmetric and speech clear, noted to have coordinated and smooth movements of extremities, no tremor or myoclonus observed PSYCH: Awake and alert, speech somewhat pressured, appropriately emotional when speaking about pain and perception that he is being judged Labs/Radiology: relevant interval data reviewed, pertinent results include: MRI Left brachial plexus 05/07: Large mesial left apical lung mass extending to the lower cervical and upper thoracic spine epidural space and left foramina, surrounding the C8 and T1 nerve roots. 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 He continues to be followed by the Palliative Care service for pain management and concurrent ISABELLA. Carley's pain control seems to have worsened in the last 36 hr or so, likely 2/2 to multiple factors including ongoing nerve root irritation, anxiety, and substance withdrawal. It is important that we continue to validate and support his pain experience, offering safe options and helping him recognize what his mind/receptors are doing which he cannot be conscious of. Plan/Recommendations: #Acute cancer-related C8-T1 nerve root pain 2/2 pancoast tumor -Appreciate efforts to begin XRT charles -Continue buprenorphine 4mg QID (will review when next to increase) -> Would reduce dosing interval of prn hydromorphone back to q2h if possible -> higher doses risk opioid withdrawal once buprenorphine is further uptitrated -Start lidocaine infusion at 1.5mg/kg/hr x 24hours -Increase clonidine to TID -Continue current doses of gabapentin, mirtazapine, decadron -Add lorazepam 1mg q6h x24h, then reassess symptoms -Will await confirmatory UDS results (send out lab) #Palliative care encounter #Serious Illness coping support -Will continue to provide emotional support to Carley on his journey, validating his concerns -Appreciate HEMATOLOGY NURSE EDUCATOR support -Will consider additional supports for Carley while he is still inpatient Palliative Care follow-up plan: Medical team Nursing team Psychosocial Support Inpatient Daily for symptoms HEMATOLOGY NURSE EDUCATOR Outpatient Has had visit with OP provider while admitted; will schedule f/u through our clinic This was a high-complexity visit related to the management of IV lidocaine infusion for severe cancer-related pain along with other medications. Whitney Batres MD Palliative care team pager #[phone] Catie Harrison MSW - 05/10/2022 10:00 AM EDT Palliative Care Social Work Note HEMATOLOGY NURSE EDUCATOR attempted to meet with pt and Spouse for follow-up visit. Pt was at a procedure and spouse not in the room. Will visit another time. 1. Initial visit or follow-up? Follow-up visit 2. Visit with patient, child care worker, or both? Both Note - Pt/Spouse not in room 3. Visit with another bioinformatics team member? No 4. Reason for visit (can select multiple) Coping related to serious illness Fifi Bishop MD - 05/10/2022 8:02 AM EDT Inpatient Medicine Progress Note Active Hospital Problems: Hospital Day 5 days Active Hospital Problems Diagnosis ??? Lung mass Resolved Hospital Problems No resolved problems to display. ID: 56 y.o. male with a PMH of PSUD presenting w L shoulder pain iso known large apical lung mass. Interval Events: -Planning scan for Thursday 05/10 -Increased PO Dilaudid frequency to Q1H Subjective: Pt reports 9/10 LUE pain this AM. He also notes SOB at rest as well as ongoing hemoptysis and pleuritic chest tightness. His LUE weakness, numbness, and tingling are unchanged from yesterday. Currently denies fever/chills, abdominal pain, N/V, and dysuria. Vitals: Last value Range last 24 hrs Temperature Temp: 36.6 ??C (97.8 ??F) Temp: [36.4 ??C (97.6 ??F)-37.1 ??C (98.8 ??F)] Heart Rate Heart Rate: 64 Heart Rate: [64] Blood Pressure BP: (!) 160/102 BP: (120-181)/(74-108) Respiratory Rate Resp: 18 Resp: [18-20] SpO2 SpO2: 100 % SpO2: [98 %-100 %] IO 05/09 07 - 05/10 07 In: 1400 [P.O.:1400] Out: - Wt (last/admit) 77.1 kg (169 lb 15.6 oz) 77.1 kg Ins/Outs: Intake/Output Summary (Last 24 hours) at 05/10/2022 0802 Last data filed at 05/09/2022 1931 Gross per 24 hour Intake 1400 ml Output -- Net 1400 ml Physical Exam: GENERAL: Well-nourished male appears stated age, in NAD HEENT: EOMI, sclera anicteric, MMM, oropharynx clear of lesions/exudate CHEST/CARDIO: RRR, no murmurs appreciated RESPIRATORY: Unlabored respirations on RA, lungs CTA BL ABD/GI/: Soft, NT/ND, normoactive BS EXTREMITIES: No peripheral edema, distal pulses intact INTEGUMENT: Warm, dry, no obvious rashes or lesions on exposed skin NEURO: Alert, PERRLA, moving all extremities spontaneously, speech and comprehension intact, no gross focal deficits PSYCH: Mood and behavior appropriate for situation, cooperative with exam Labs: CBC: Recent Labs 05/10/222 05/09/22 0545 05/08/22 0819 WBC 9.3 8.7 10.6* HGB 12.8* 13.6* 14.4 PLATELET 264 279 287 Chemistry: Recent Labs 05/10/2225105/09/22 0545 05/08/22 0819 NA 139 137 135 K 4.6 4.3 4.6 CL 106 105 103 CO2 26 24 25 BUN 24* 23* 24* CREATININE 0.80 0.75* 0.86 GLUCOSE 163 190 123 Recent Labs 05/10/222 05/09/22 0545 05/08/22 0819 05/05/22 0720 05/04/22 1550 CALCIUM 8.5 8.4* 9.1 < > 9.3 MAGNESIUM -- -- -- -- 0.89 PHOS -- -- -- -- 3.4 < > = values in this interval not displayed. LFT's: Recent Labs 05/05/22 0720 05/04/22 1550 BILITOT 0.4 0.3 ALBUMIN 3.9 4.3 ALKPHOS 79 86 ALT 37 38 AST 37 36 Coags: No results for input(s): PT, INR, PTT, FIBRINOGEN, DDIMER in the last 168 hours. Invalid input(s): THROMBIN TIME Cardiac enzymes: Recent Labs 05/04/22 1550 TROPONINT <0.01 Endocrine: No results for input(s): TSH, CORTISOL in the last 7068 hours. Invalid input(s): [id number] No results for input(s): HA1C in the last 7068 hours. Heme: Recent Labs 05/05/22 0720 LDH 214 Lipids: Imaging/Studies: Results for orders placed or performed during the hospital encounter of 05/04/22 XR Chest PA & Lateral (Generic) (Exam End: 05/04/2022 3:38 PM) Impression 1. Stable left upper lobe paramediastinal mass. 2. No superimposed acute cardiopulmonary process. Thank you for letting us participate in the care of this patient. If you are a health care provider and have any questions regarding this report, please contact the number below. For patients who have questions please contact the health nurse care manager that requested your imaging first. Chest w Contrast (Exam End: 05/04/2022 5:59 PM) Impression 1. Unchanged size of left upper mediastinal [...] centrilobular emphysema. No pneumothorax or pleural effusions. Thank you for letting us participate in the care of this patient. If you are a health care provider and have any questions regarding this report, please contact the number below. For patients who have questions please contact the health nurse care manager that requested your imaging first. Cervical Spine wwo Contrast (Exam End: 05/04/2022 9:40 PM) Impression 1. Left lung apex mass extending to the scalene triangle, paraspinous soft tissues and superior mediastinum. 2. There is a involvement of the T1 and T2 vertebral bodies, the left C7-T1 through T3-T4 neural foramina and the epidural space on the left in the upper thoracic spine. 3. There is a evidence of vascular encasement of the left vertebral artery and partial encasement of the left subclavian artery. The superior margin of the mass projects along the course of the left brachial plexus. This would be better assessed with dedicated brachial plexus imaging. 4. Changes of cervical spondylosis as described. Thank you for letting us participate in the care of this patient. If you are a health care provider and have any questions regarding this report, please contact the number below. For patients who have questions please contact the health nurse care manager that requested your imaging first. Thoracic Spine wwo Contrast (Exam End: 05/04/2022 9:40 PM) Impression 1. Left lung apex mass extending to the scalene triangle, paraspinous soft tissues and superior mediastinum. 2. There is a involvement of the T1 and T2 vertebral bodies, the left C7-T1 through T3-T4 neural foramina and the epidural space on the left in the upper thoracic spine. 3. There is a evidence of vascular encasement of the left vertebral artery and partial encasement of the left subclavian artery. The superior margin of the mass projects along the course of the left brachial plexus. This would be better assessed with dedicated brachial plexus imaging. 4. Changes of cervical spondylosis as described. Thank you for letting us participate in the care of this patient. If you are a health care provider and have any questions regarding this report, please contact the number below. For patients who have questions please contact the health nurse care manager that requested your imaging first. Brain wwo Contrast (Generic) (Exam End: 05/05/2022 8:51 AM) Impression No evidence of intracranial metastatic disease. No acute intracranial processes identified. I have personally reviewed the image(s) and the resident's interpretation and agree with the findings, Bishop Otto at 05/05/2022 10:31 AM Thank you for letting us participate in the care of this patient. If you are a health care provider and have any questions regarding this report, please contact the number below. For patients who have questions please contact the health nurse care manager that requested your imaging first. Abdomen & Pelvis w Contrast (Exam End: 05/05/2022 11:27 AM) Impression No metastatic disease identified in the abdomen and pelvis. Thank you for letting us participate in the care of this patient. If you are a health care provider and have any questions regarding this report, please contact the number below. For patients who have questions please contact the health nurse care manager that requested your imaging first. Brachial Plexus w Contrast Left (Exam End: 05/07/2022 8:25 PM) Impression Large mesial left apical lung mass extending to the lower cervical and upper thoracic spine epidural space and left foramina, surrounding the C8 and T1 nerve roots. Thank you for letting us participate in the care of this patient. If you are a health care provider and have any questions regarding this report, please contact the number below. For patients who have questions please contact the health nurse care manager that requested your imaging first. Scheduled Medications: ??? buprenorphine-naloxone 4 mg of opiate Sublingual 4 Times Daily ??? mirtazapine 7.5 mg Oral Nightly ??? ketorolac 15 mg Intravenous Q6H ??? gabapentin 400 mg Oral TID ??? cloNIDine 0.2 mg Oral BID ??? divalproex EC 500 mg Oral BID ??? multivitamin with minerals 1 tablet Oral Daily ??? pantoprazole EC 40 mg Oral Daily ??? enoxaparin 40 mg Subcutaneous Nightly ??? metoprolol tartrate 12.5 mg Oral 2 times per day ??? senna-docusate 2 tablet Oral BID ??? dexAMETHasone 4 mg Oral 2 times per day ??? acetaminophen 975 mg Oral TID PRN Medications: ondansetron OR ondansetron, hydrOXYzine, HYDROmorphone, ipratropium- albuteroL, albuteroL, HYDROmorphone, polyethylene glycoL (MIRALAX) oral powder, melatonin Assessment & Plan: 56 y.o. male known lung mass and history of OUD presenting with progressive, uncontrolled left-sidedneck, torso, and arm pain as well as reported neurologic symptoms. Imaging showing extension of the mass with involvement of the T1/T2 vertebral bodies, left C7-T1 through T3-T4 neural formina and epidural space on the left upper thoracic spine. Also with vascular encasement of the left vertebral artery and partial encasement of the left subclavian artery. Although there were not overt signs of left-sided upper extremity weakness on exam, patient and family reports that he has been dropping objects from the left hand. He also has numbness and paresthesias. Neurosurgery recommended dexamethasone 4mg BID along with NSAIDs and gabapentin. GI was consulted to perform EGD/EUS to determine local invasion of esophagus. Hem/onc concluded the tumor is unresectable and will facilitate chemotherapy outpatient. Rad onc will also pursue radiation therapy on an outpatient basis and will begin the setup for these interventions as early as Thursday 05/10. Nutrition consulted and will see him Tuesday to facilitate dietary needs prior to initiation of chemoradiation. Pain is well co ntrolled on current regimen although continue to titrate as goal will be dc without oral opioid requirement. Planning scan with radiation oncology this week. Pain control ebs and flows, will re-engage with Palliative to discuss recs for pain regimen. ?? #ALBERTO lung mass #Concern for Pancoast tumor - Hematology/Oncology consult - MRI brain: no acute intracranial process - CT A/P for staging: no metastatic disease identified in the abdomen and pelvis - LDH normal 214 - Tumor is unresectable - Can facilitate concurrent chemotherapy during radiation, or primary systemic chemotherapy - Radiation oncology consult, appreciate recs - MRI left brachial plexus - Planning scan Thursday 05/10 - Neurosurgery consult, appreciate recs - s/p dexamethasone 10 mg IV - Dexamethasone 4mg BID - NSAIDs and gabapentin - GI c/s - s/p EGD/EUS on 05/06 - F/U final biopsy results: non-small cell carcinoma, favor adenocarcinoma #Pain control - Dilaudid 1 mg SC q4hr prn severe pain - Palliative care consult, appreciate assistance: -Micro induction of buprenorphine -1 mg SQ Q 2 hours prn or 4 mg po Q 2 hours prn (use oral first) -Gabapentin 300 mg po TID, consider increasing -Continue decadron 4 mg po BID -Tylenol 1000 mg po TID - Re-engage Palliative to discuss pain regimen 05/10 -Consider lidocaine gtt -Increase clonidine 0.2mg PO to TID ?? #Substance use disorder - BIT consult in place - Suboxone up-titration, will reach QID dosing PM 05/09 - Clonidine 0.2 mg BID - UDS per Palliative Care ?? #Reported hx of COPD/asthma - PFTs ordered but not yet done ?? #Bipolar disorder - Continue Depakote ?? #Home medications - MTV - Pantoprazole - Metoprolol, divided dosing 12.5 mg BID ?? #Routine - Code status: Attempt Cardiopulmonary Resuscitation - Inpatient - Access: 1 PIV - Lines: n/a - Diet: Regular diet - DVT ppx: Lovenox - DPOA: Primary Emergency Contact: Jaja Palomares, - Dispo: pending clinical course Fifi Bishop MD Blue Team Pager [phone] 05/10/22 Associated attestation - Belen Malagon MD - 05/10/2022 8:56 PM EDT Attending Attestation Please see Dr. Bishop's note for details of the patient history of presentation and data. I have discussed, reviewed and agree with the documented History, Physical findings, Assessment and Plan of care. I have examined the patient myself and personally reviewed all studies. In addition, I certify that I am a D-H credentialed attending provider with admitting privileges andthat the patient meets or has met medical necessity to require an inpatient IPI level of care meeting a minimum of two midnights or is on the CMS inpatient only procedure list (status C) due to: uncontrolled pain requiring titration of medications to achieve optimal effect and to minimize immediate or severe side effects Accelerating pain. I do not think his pain is likely to improve without XRT. (And XRT may take time for benefit to occur). Appreciate palliative care. Plan to start lidocaine drip. Schedule ativan for next 24 hours Emotionally labile. He has capacity to leave against medical advice however he should not leave with a prescription for opioids or benzodiazepines Carla Mcdermott RN - 05/09/2022 3:25 PM EDT Fall Event Note Carley Palomares [id number] 05/09/2022 Time of Fall: ~1445 Was the fall witnessed No/Unobserved fall Patient's description of fall: I was walking to the bathroom when my leg gave out & I fell to my knee Nursing staff description of fall: bathroom assist light came on, [employer] SALES CONSULTANT (Castro) responded & called for RN assistance, this copywriter (ANA Aguirre) & ANA Dotson responded, assisted patient to standing position & walked patient back to bed with FWW Anatomical point(s) of impact: left knee Vital signs observations: BP was 181/94 s/p fall (MD aware) - otherwise VSS on RA Neurological observations: unchanged Post-fall physical assessment--relevant findings: BP elevated (181/94) s/p fall - MD aware Interventions: bed alarm set, call light/bedside table within reach Physician/Provider notified (name): Tyson Bains MD Jeff Bains MD - 05/09/2022 3:10 PM EDT Inpatient Progress Note Patient: Carley Palomares Date: 05/09/22 Event: Fall Subjective: Notified at 14:42 by bedside RN (Jak Mcdermott) that patient had fallen while ambulating to bathroom. Fall was unwitnessed; patient reports that his left leg gave out from under him while walking, and that he landed on his knee. He was able to reach call button and was assisted back to bed. In bed he denied LOC or striking his head during fall. Denies pain in his L knee; L sided pain iso malignancy is essentially unchanged. No confusion noted on conversation; patient expresses anxiety over dischargeplanning and having a safe plan to manage pain as an outpatient. Otherwise denies CP, dyspnea, AP, or other changes. No other complaints or concerns noted at this time. Objective: Patient Vitals: Temp Heart Rate From SP02 Pulse Resp BP SpO2 O2 Device 05/09/22 1017 36.5 ??C (97.7 ??F) 61 bpm -- 18 (!) 162/104 98 % RA 05/09/22 1118 36.7 ??C (98 ??F) 66 bpm -- 20 (!) 142/96 99 % RA 05/09/22 1438 36.4 ??C (97.6 ??F) 77 bpm -- 18 (!) 181/94 98 % RA GENERAL: Well-nourished male appears stated age, in NAD. Anxious, grasping at bed. HEENT: EOMI, sclera anicteric, MMM, oropharynx clear of lesions/exudate CHEST/CARDIO: Borderline tachycardic but RRR, no murmurs appreciated RESPIRATORY: Unlabored respirations on RA, lungs CTA BL ABD/GI/: Soft, nondistended, minimally tender wout rebound/guarding, normoactive BS EXTREMITIES: No peripheral edema, distal pulses intact. L knee with mild medial tenderness, no instability/laxity/effusion INTEGUMENT: Warm, dry, no obvious rashes or lesions on exposed skin NEURO: Anxious but alert, moving all extremities spontaneously, speech and comprehension intact, no gross focal deficits. Baseline reduced sensation to light touch over LLE. PSYCH: Mood and behavior appropriate for situation, cooperative with exam Assessment: 56 y.o. male patient admitted for ALBERTO adenocarcinoma with cervicothoracic spinal as well as L brachial plexus involvement who fell while ambulating to bathroom. At this time patient has returned to baseline although significant malignancy- related pain and anxiety around care plan persist. Suspect baseline pain and paresthesia contributory to fall. No LOC or headstrike to suggest need for imaging. No clinical concern for seizure wout noted post-ictal period. Will monitor closely while continuing to titrate analgesia. Plan: - CTM; low threshold for imaging for clinical status/neurological change - Pain mgmt as before with acetaminophen TID, buprenorphine/naloxone QID, hydromorphone Q2H PRN, gabapentin TID, ketorolac Q6H - Consider topical lidocaine vs diclofenac for L knee pain - Dexamethasone 4mg PO BID - OOB with assistance - Bed alarm in place Jeff Bains MD PGY-2, Internal Medicine Blue Team, Pager [phone] 05/09/22 Associated attestation - Belen Malagon MD - 05/09/2022 5:17 PM EDT Attending Attestation Please see Dr. iBshop's note for details of the patient history of presentation and data. I have discussed, reviewed and agree with the documented History, Physical findings, Assessment and Plan of care. I have examined the patient myself and personally reviewed all studies. In addition, I certify that I am a D-H credentialed attending provider with admitting privileges andthat the patient meets or has met medical necessity to require an inpatient IPI level of care meeting a minimum of two midnights or is on the [facility] inpatient only procedure list (status C) due to: uncontrolled pain requiring titration of medications to achieve optimal effect and to minimize immediate or severe side effects Agree with plan as detailed below Carla Mcdermott RN - 05/09/2022 11:12 AM EDT OUTCOME EVALUATION NOTE: OUTCOME SUMMARY: ?? Patient is alert & oriented x 4. BP elevated at times throughout shift - MD aware. Otherwise VSSon RA. C/o 6-10 upper left chest/neck/shoulder pain - PRN PO Dilaudid given x 3, SQ given x 2, & 1-time IV Dilaudid given x 2. C/o anxiety - MD notified, 1-time Atarax given, & PRN Atarax ordered/given x 1. C/o nausea this morning - MD notified & PRN Zofran given x 2 (8 mg total). Patient fell this shift - see Fall Event Note. All needs met at this time. PLAN MOVING FORWARD: ?? Pain management COWS q shift Maintain safety Discharge planning ?? INDIVIDUALIZED FALL PREVENTION INTERVENTIONS: ?? Patient-specific fall risk factors per assessment: [current deficits]: unfamiliar environment, IV ?? Assistance [level of assistance required for transfers and ambulation]: SBA ?? Supervision [direct monitoring required during toileting and ADLs]: eyes-on ?? Surveillance [continuous indirect monitoring]: bed/chair alarm set, room near Nurses' Station, purposeful rounding, call light within reach ?? Patient-specific fall prevention interventions for sensory deficits provided, if applicable: [X] No Farooq Sanabria MD - 05/09/2022 10:13 AM EDT Palliative Care Daily Progress Note NAME: Carley Palomares Encounter Date: 05/09/2022 Inpatient Attending: Belen Malagon MD PCP: Willam Waite MD Hospital day: Hospital Day 4 days ID: Carley Palomares is a 56 y.o. male with history of COPD, Bipolar affective disorder, ISABELLA with recent illicit drug use (methamphetamine, benzos, and fentanyl) and newly diagnosed large ALBERTO apex tumor causing severe pain consistent with brachial plexus syndrome. He continues to be followed by the Palliative Care service for pain management and concurrent ISABELLA. Interval History: - Walked outside with his yesterday - Per Oncology follow up: The plan will be to pursue outpatient curative chemoRT at [facility] starting 05/17. Per rad.Onc he will need a brachial plexus MRI while inpatient and has simulation planned here on Thursday 05/10. Physical sx/ROS: Pain: 8; Pain remains in the left neck, anterior left chest, left upper back and axilla and down posterior left arm. Extending to behind his ear. It wakes him up in the morning. He gets 45 min to 1 hr of pain relief from PRN hydromorphone. He has trouble taking a deep breath because of the severity ofhis pain. Constipation: 0 BM in the past 48 hours?: Yes Nausea: 5; threw up this morning [employer]; in tears because of his pain and frustration. Shortness of breath: 5; Difficult to take a deep breath because of his pain. Depression: 6; feels discouraged because of his lack of pain control. Emotional/coping/counseling: He is distressed by the fact that his pain has in fact worsened since yesterday. This is very discouraging for him. I validated his pain experience. He was in tears because of his pain and frustration. Were goals of care discussed?: No Advance Care Planning: Current code status: Attempt Cardiopulmonary Resuscitation - Inpatient Was an advance directive document completed during visit?: Not completed, advance directive already present Does the patient have a completed POLST/MOLST?: No POLST/COLST on file. If not, was a POLST/MOLST completed?: No If neither, was the completion of a POLST/MOLST discussed?: No Relevant Palliative Care Medications: Scheduled: ??? ketorolac 15 mg Intravenous Q6H ??? gabapentin 400 mg Oral TID ??? cloNIDine 0.2 mg Oral BID ??? divalproex EC 500 mg Oral BID ??? multivitamin with minerals 1 tablet Oral Daily ??? pantoprazole EC 40 mg Oral Daily ??? enoxaparin 40 mg Subcutaneous Nightly ??? metoprolol tartrate 12.5 mg Oral 2 times per day ??? buprenorphine-naloxone 4 mg of opiate Sublingual 4 Times Daily ??? senna-docusate 2 tablet Oral BID ??? dexAMETHasone 4 mg Oral 2 times per day ??? acetaminophen 975 mg Oral TID PRN MEDS: Used hydromorphone PO X 8 mg and Hydromorphone SQ X 1 mg: OME = 52mg Current Facility-Administered Medications Medication Dose Route Frequency ??? ondansetron (Zofran) tablet 4-8 mg 4-8 mg Oral Q8H PRN Or ??? ondansetron (pf) (Zofran) (2 mg/mL) injection 4-8 mg 4-8 mg Intravenous Q8H PRN ??? ipratropium-albuteroL (Duoneb) 0.5 mg-3 mg(2.5 mg base)/3 mL nebulizer solution 3 mL 3 mL Nebulization 4 Times Daily PRN ??? albuteroL 90 mcg/actuation inhaler 1 puff 1 puff Inhalation Q6H PRN ??? HYDROmorphone (Dilaudid) (1 mg/mL) injection syringe 1 mg 1 mg Subcutaneous Q2H PRN ??? HYDROmorphone (Dilaudid) tablet 4 mg 4 mg Oral Q2H PRN ??? polyethylene glycoL (Miralax) packet 17 g 17 g Oral Daily PRN ??? melatonin tablet 9 mg 9 mg Oral Nightly PRN Social History/Context: Reviewed. No changes Physical Examination: Patient Vitals for the past 24 hrs: Temp Heart Rate From SP02 Pulse Resp BP SpO2 O2 Flow Rate (L/min) O2 Device 05/06/22 0927 36.4 ??C (97.5 ??F) -- 69 -- (!) 155/109 97 % -- RA Physical Exam Vitals reviewed. Constitutional: General: He is in acute distress. Appearance: Normal appearance. HENT: Head: Normocephalic and atraumatic. Eyes: General: No scleral icterus. Skin: General: Skin is warm and dry. Neurological: General: No focal deficit present. Mental Status: He is alert and oriented to person, place, and time. Psychiatric: Mood and Affect: Mood normal. Behavior: Behavior normal. Thought Content: Thought content normal. Judgment: Judgment normal. Labs/Radiology: relevant interval data reviewed, pertinent results include: Lab Results Component Value Date WBC 8.7 05/09/2022 HGB 13.6 (L) 05/09/2022 HCT 39.9 (L) 05/09/2022 MCV 92.4 05/09/2022 PLATELET 279 05/09/2022 Lab Results Component Value Date NA 137 05/09/2022 K 4.3 05/09/2022 CL 105 05/09/2022 CO2 24 05/09/2022 BUN 23 (H) 05/09/2022 CREATININE 0.75 (L) 05/09/2022 GLUCOSE 190 05/09/2022 GLUCFASTING 116 (H) 05/05/2022 CALCIUM 8.4 (L) 05/09/2022 ESTGFR 107 05/09/2022 Palliative Care Assessment: 56 year old man with newly diagnosed large ALBERTO apex tumor extending to the scalene triangle, paraspinous soft tissues and superior mediastinum with involvement of the T1 and T2 vertebral bodies, the left C7-T1 through T3-T4 neural foramina and the epidural space on the left in the upper thoracic spine and along the brachial plexus. His pain is clearly consistent with this type of tumor and concerningfor brachial plexus syndrome. It is nociceptive and neuropathic in nature and will require opioids and coanalgesics. Pain not controlled today. He has openly discussed his ISABELLA and substance use history. Buprenorphine micro- induction initiated 05/05/2022. He will be seeing Criselda Zelaya APRN in Palliative care for longitudinal management of his serious illness and ISABELLA. He is agreeable to frequent follow-up,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 05/06/22 0607 05/05/22 0720 05/04/22 1550 WBC 11.0* 15.2* 10.4* HGB 14.8 15.0 15.9 PLATELET 296 292 351 Chemistry: Recent Labs 05/06/22 0607 05/05/22 0720 05/04/22 1550 NA 133* 136 135 K 4.4 4.6 4.4 CL 102 104 101 CO2 23 23 23 BUN 21* 19 20 CREATININE 0.80 0.73* 0.91 GLUCOSE 133 -- 102 Recent Labs 05/06/22 0607 05/05/22 0720 05/04/22 1550 CALCIUM 8.9 8.8 9.3 MAGNESIUM -- -- 0.89 PHOS -- -- 3.4 LFT's: Recent Labs 05/05/22 0720 05/04/22 1550 BILITOT 0.4 0.3 ALBUMIN 3.9 4.3 ALKPHOS 79 86 ALT 37 38 AST 37 36 Coags: No results for input(s): PT, INR, PTT, FIBRINOGEN, DDIMER in the last 168 hours. Invalid input(s): THROMBIN TIME Cardiac enzymes: Recent Labs 05/04/22 1550 TROPONINT <0.01 Endocrine: No results for input(s): TSH, CORTISOL in the last 7068 hours. Invalid input(s): [id number] No results for input(s): HA1C in the last 7068 hours. Heme: Recent Labs 05/05/22 0720 LDH 214 Lipids: Imaging/Studies: Results for orders placed or performed during the hospital encounter of 05/04/22 XR Chest PA & Lateral (Generic) (Exam End: 05/04/2022 3:38 PM) Impression 1. Stable left upper lobe paramediastinal mass. 2. No superimposed acute cardiopulmonary process. Thank you for letting us participate in the care of this patient. If you are a health care provider and have any questions regarding this report, please contact the number below. For patients who have questions please contact the health nurse care manager that requested your imaging first. Chest w Contrast (Exam End: 05/04/2022 5:59 PM) Impression 1. Unchanged size of left upper mediastinal [...] centrilobular emphysema. No pneumothorax or pleural effusions. Thank you for letting us participate in the care of this patient. If you are a health care provider and have any questions regarding this report, please contact the number below. For patients who have questions please contact the health nurse care manager that requested your imaging first. Cervical Spine wwo Contrast (Exam End: 05/04/2022 9:40 PM) Impression 1. Left lung apex mass extending to the scalene triangle, paraspinous soft tissues and superior mediastinum. 2. There is a involvement of the T1 and T2 vertebral bodies, the left C7-T1 through T3-T4 neural foramina and the epidural space on the left in the upper thoracic spine. 3. There is a evidence of vascular encasement of the left vertebral artery and partial encasement of the left subclavian artery. The superior margin of the mass projects along the course of the left brachial plexus. This would be better assessed with dedicated brachial plexus imaging. 4. Changes of cervical spondylosis as described. Thank you for letting us participate in the care of this patient. If you are a health care provider and have any questions regarding this report, please contact the number below. For patients who have questions please contact the health nurse care manager that requested your imaging first. Thoracic Spine wwo Contrast (Exam End: 05/04/2022 9:40 PM) Impression 1. Left lung apex mass extending to the scalene triangle, paraspinous soft tissues and superior mediastinum. 2. There is a involvement of the T1 and T2 vertebral bodies, the left C7-T1 through T3-T4 neural foramina and the epidural space on the left in the upper thoracic spine. 3. There is a evidence of vascular encasement of the left vertebral artery and partial encasement of the left subclavian artery. The superior margin of the mass projects along the course of the left brachial plexus. This would be better assessed with dedicated brachial plexus imaging. 4. Changes of cervical spondylosis as described. Thank you for letting us participate in the care of this patient. If you are a health care provider and have any questions regarding this report, please contact the number below. For patients who have questions please contact the health nurse care manager that requested your imaging first. Brain wwo Contrast (Generic) (Exam End: 05/05/2022 8:51 AM) Impression No evidence of intracranial metastatic disease. No acute intracranial processes identified. I have personally reviewed the image(s) and the resident's interpretation and agree with the findings, Bishop Otto at 05/05/2022 10:31 AM Thank you for letting us participate in the care of this patient. If you are a health care provider and have any questions regarding this report, please contact the number below. For patients who have questions please contact the health nurse care manager that requested your imaging first. Abdomen & Pelvis w Contrast (Exam End: 05/05/2022 11:27 AM) Impression No metastatic disease identified in the abdomen and pelvis. Thank you for letting us participate in the care of this patient. If you are a health care provider and have any questions regarding this report, please contact the number below. For patients who have questions please contact the health nurse care manager that requested your imaging first. Scheduled Medications: ??? cloNIDine 0.2 mg Oral BID ??? divalproex EC 500 mg Oral BID ??? multivitamin with minerals 1 tablet Oral Daily ??? pantoprazole EC 40 mg Oral Daily ??? enoxaparin 40 mg Subcutaneous Nightly ??? metoprolol tartrate 12.5 mg Oral 2 times per day ??? buprenorphine-naloxone 1 mg of opiate Sublingual BID Followed by ??? buprenorphine-naloxone 2 mg of opiate Sublingual BID Followed by ??? [START ON 05/08/2022] buprenorphine-naloxone 4 mg of opiate Sublingual BID Followed by ??? [START ON 05/09/2022] buprenorphine-naloxone 4 mg of opiate Sublingual 4 Times Daily ??? senna-docusate 2 tablet Oral BID ??? gabapentin 300 mg Oral TID ??? dexAMETHasone 4 mg Oral 2 times per day ??? acetaminophen 975 mg Oral TID Infusing Medications: PRN Medications: HYDROmorphone, HYDROmorphone, gadoterate meglumine, polyethylene glycoL (MIRALAX) oral powder, melatonin Assessment & Plan: 56 y.o. male known lung mass and history of OUD presenting with progressive, uncontrolled left-sidedneck, torso, and arm pain as well as reported neurologic symptoms. Imaging showing extension of the mass with involvement of the T1/T2 vertebral bodies, left C7-T1 through T3-T4 neural formina and epidural space on the left upper thoracic spine. Also with vascular encasement of the left vertebral artery and partial encasement of the left subclavian artery. Although there were not overt signs of left-sided upper extremity weakness on exam, patient and family reports that he has been dropping objects from the left hand. He also has numbness and paresthesias. Therefore, would consult Neurosurgery regarding possibility of surgical intervention. Also have ordered MRI brain and patient has received dexamethasone while in the ER. ?? #ALBERTO lung mass #Concern for Pancoast tumor - Hematology/Oncology consult - MRI brain: no acute intracranial process - CT A/P for staging: no metastatic disease identified in the abdomen and pelvis - LDH normal 214 - Tumor is unresectable - Can facilitate concurrent chemotherapy during radiation, or primary systemic chemotherapy - Radiation oncology consult, appreciate recs - MRI left brachial plexus - Neurosurgery consult, appreciate recs - s/p dexamethasone 10 mg IV - Dexamethasone 4mg BID - NSAIDs and gabapentin -GI c/s - s/p EGD/EUS on 05/06 - F/U final biopsy results #Pain control - Dilaudid 1 mg SC q4hr prn severe pain - Palliative care consult, appreciate assistance: -Micro induction of buprenorphine -1 mg SQ Q 2 hours prn or 4 mg po Q 2 hours prn (use oral first) -Gabapentin 300 mg po TID, consider increasing -Continue decadron 4 mg po BID -Tylenol 1000 mg po TID -Consider toradol or APS c/s ?? #Substance use disorder - BIT consult in place - Clonidine 0.2 mg BID - Order UDS ?? #Reported hx of COPD/asthma - PFTs ordered but not yet done ?? #Bipolar disorder - Continue Depakote ?? #Home medications - MTV - Pantoprazole - Metoprolol, divided dosing 12.5 mg BID ?? #Routine - Code status: Attempt Cardiopulmonary Resuscitation - Inpatient - Access: 1 PIV - Lines: n/a - Diet: Regular diet - DVT ppx: Lovenox - DPOA: Primary Emergency Contact: Jaja Palomares, - Dispo: pending clinical course Fifi Bishop MD (PGY-1) Anesthesiology Blue Team Pager [phone] Associated attestation - Chema Davila MD - 05/14/2022 3:35 PM EDT Attending Attestation Please see Dr. Bishop's note for details of the patient history of presentation and data. I have discussed, reviewed and agree with the documented History, Physical findings, Assessment and Plan of care. I have examined the patient myself and personally reviewed all studies. In addition, I certify that I am a [facility] credentialed attending provider with admitting privileges and that the patient meets or has met medical necessity to require an inpatient IPI level of care meeting a minimum of two midnights or is on the [facility] inpatient only procedure list (status C) due to: uncontrolled pain requiring titration of medications to achieve optimal effect and to minimize immediate or severe side effects Liudmila Brunner APRN - 05/06/2022 3:00 PM EDT Palliative Care Daily Progress Note NAME: Carley Palomares Encounter Date: 05/06/2022 Inpatient Attending: Chema Alicea MD PCP: Willam Waite MD Hospital day: Hospital Day 1 days ID: Carley Palomares is a 56 y.o. male with history of COPD, Bipolar affective disorder, ISABELLA with recent illicit drug use (methamphetamine, benzos, and fentanyl) and newly diagnosed large ALBERTO apex tumor causing severe pain consistent with brachial plexus syndrome. He continues to be followed by the Palliative Care service for pain management and concurrent ISABELLA. Interval History: - Started on micro-induction of buprenorphine. - using oral and SW hydromorphone: used 28 mg PO hydromorphone and 4 mg SQ in the last 24 hours: total OME= 192 mg Physical sx/ROS: 0 = no symptoms or feeling well -> 10 = worst possible (ex. 0 = best appetite, 10 = worst lack of appetite) Pain: 5 Pain remains in the left neck, anterior left chest, left upper back and axilla and down posterior left arm. Constipation: 0 BM in the past 48 hours?: Yes Lack of appetite: 0 Nausea: 0 Wellbeing: Patient declined/provider unable to rate Shortness of breath: 0 Depression: Patient declined/provider unable to rate Anxiety: Patient declined/provider unable to rate Drowsiness: 0 Fatigue/tiredness: Patient declined/provider unable to rate Bladder: no issues Sleep: Slept better than he has in a long time with melatonin, slept 3 hours straight. Cognitive function: no issues. Physical function: Fully independent. Emotional/coping/counseling: Notes report he had a fight with his who went home. See HEMATOLOGY NURSE EDUCATOR notes as well from today re: concern for active illicit drug use and family bringing in illicit substances as well. Long discussion with patient today re: pain management and concurrent ISABELLA. Carley is concerned that hewill not have good pain control and asked how his pain can be controlled with a opioid jose luis. I explained that buprenorphine is a partial agonist, that is does provide analgesia by attaching to some of the opioid receptors but, also has other receptor affinity that also help with pain management. Wediscussed that he may a higher dose for pain management and that this is the medication that will keep him safe and help with the pain. Additionally, we discussed the need to treat the cancer with radiation that will also help the pain. We discussed our clinic and Criselda Zelaya APRN, who is experiences with caring compassionately with patient with ISABELLA and cancer related pain. Criselda will do a video site visit tomorrow. I asked for a family member to also be there and he wants his daughter, Marisela over his , Ines. I called and talked with Marisela and she is willing to come Tuesday, 05/07at 1:45. Were goals of care discussed?: Yes Advance Care Planning: Current code status: Attempt Cardiopulmonary Resuscitation - Inpatient Was an advance directive document completed during visit?: Not completed, advance directive already present Does the patient have a completed POLST/MOLST?: No POLST/COLST on file. If not, was a POLST/MOLST completed?: No If neither, was the completion of a POLST/MOLST discussed?: No Relevant Palliative Care Medications: Scheduled: ??? cloNIDine 0.2 mg Oral BID ??? divalproex EC 500 mg Oral BID ??? multivitamin with minerals 1 tablet Oral Daily ??? pantoprazole EC 40 mg Oral Daily ??? enoxaparin 40 mg Subcutaneous Nightly ??? metoprolol tartrate 12.5 mg Oral 2 times per day ??? buprenorphine-naloxone 2 mg of opiate Sublingual BID Followed by ??? [START ON 05/08/2022] buprenorphine-naloxone 4 mg of opiate Sublingual BID Followed by ??? [START ON 05/09/2022] buprenorphine-naloxone 4 mg of opiate Sublingual 4 Times Daily ??? senna-docusate 2 tablet Oral BID ??? gabapentin 300 mg Oral TID ??? dexAMETHasone 4 mg Oral 2 times per day ??? acetaminophen 975 mg Oral TID PRN MEDS: Used hydromorphone PO X 28 mg and Hydromorphone SQ X 4 mg: OME = 192mg Current Facility-Administered Medications Medication Dose Route Frequency ??? HYDROmorphone (Dilaudid) (1 mg/mL) injection syringe 1 mg 1 mg Subcutaneous Q2H PRN ??? HYDROmorphone (Dilaudid) tablet 4 mg 4 mg Oral Q2H PRN ??? gadoterate meglumine (Dotarem) (0.5 mMol/mL) injection solution 0-100 mL 0- 100 mL Intravenous Once PRN ??? polyethylene glycoL (Miralax) packet 17 g 17 g Oral Daily PRN ??? melatonin tablet 9 mg 9 mg Oral Nightly PRN Social History/Context: Reviewed. No changes Physical Examination: Patient Vitals for the past 24 hrs: Temp Heart Rate From SP02 Pulse Resp BP SpO2 O2 Flow Rate (L/min) O2 Device 05/06/22 0927 36.4 ??C (97.5 ??F) -- 69 -- (!) 155/109 97 % -- RA Physical Exam Vitals reviewed. Constitutional: Appearance: Normal appearance. He is not toxic-appearing. HENT: Head: Normocephalic and atraumatic. Eyes: General: No scleral icterus. Skin: General: Skin is warm and dry. Neurological: General: No focal deficit present. Mental Status: He is alert and oriented to person, place, and time. Psychiatric: Mood and Affect: Mood normal. Behavior: Behavior normal. Thought Content: Thought content normal. Judgment: Judgment normal. Labs/Radiology: relevant interval data reviewed, pertinent results include: Lab Results Component Value Date WBC 11.0 (H) 05/06/2022 HGB 14.8 05/06/2022 HCT 40.7 05/06/2022 MCV 87.7 05/06/2022 PLATELET 296 05/06/2022 Lab Results Component Value Date NA 133 (L) 05/06/2022 K 4.4 05/06/2022 CL 102 05/06/2022 CO2 23 05/06/2022 BUN 21 (H) 05/06/2022 CREATININE 0.80 05/06/2022 GLUCOSE 133 05/06/2022 GLUCFASTING 116 (H) 05/05/2022 CALCIUM 8.9 05/06/2022 ESTGFR 105 05/06/2022 Palliative Care Assessment: 56 year old man with newly diagnosed large ALBERTO apex tumor extending to the scalene triangle, paraspinous soft tissues and superior mediastinum with involvement of the T1 and T2 vertebral bodies, the left C7-T1 through T3-T4 neural foramina and the epidural space on the left in the upper thoracic spine and along the brachial plexus. His pain is clearly consistent with this type of tumor and concerningfor brachial plexus syndrome. It is nociceptive and neuropathic in nature and will require opioids and coanalgesics. He has openly discussed his ISABELLA and substance use history. Buprenorphine micro- induction initiated yesterday. He is agreeable to meeting with Criselda Zelaya APRN in Palliative care for longitudinal management of his serious illness and ISABELLA. He is agreeable to frequent follow-up, UDS, opioid agreement, etc. Plan/Recommendations: Physical symptoms: Cancer related left chest, back, arm pain in the setting of a very large pancoasttumor, worry for brachial plexopathy. Recommendations for management of symptoms: 1. Continue Buprenorphine for patients on Opioids order set. 2. Continue hydromorphone linked order: 1 mg SQ Q 2 hours prn or 4 mg po Q 2 hours prn: use oral first. 3. The Hydromorphone will be during the hospital until we can get his Buprenorphine up to the highest effective dose or 24 mg. 4. Continue gabapentin 300 mg po TID 5. Continue decadron 4 mg po BID 6. Begin tylenol scheduled: 1000 mg po TID 7. Await Rad Onc recs as RT sooner rather than later can help with pain management. 8. Please get a UDS with confirmation in the AM. Plan for Site Video visit with Criselda Zelaya APRN Tuesday, 05/07 at 1:45 PM. I will bring an Ipad to his room. DaughterMarisela will join as well. Plan will be to establish care with our clinic provider and begin Suboxone/opioid agreement, etc. ?? This was a 35 min visit with 30 min spent in counseling re: pain management and concurrent ISABELLA and coordination of care. Discussed with Dr. Davila, Dr. Zelaya and Mr. Camarena via secure chat. Palliative Care follow-up plan: Medical team Nursing team Psychosocial Support Inpatient Daily. [facility] Outpatient LIUDMILA BRUNNER APRN Palliative care team pager #[phone] Darleen Francois RN - 05/06/2022 1:57 PM EDT Pt's in room, pulled me aside stating that she was concerned about pt having family members bringing in drugs to pt, particularly fentanyl. I went in while pt was at a procedure and did a search of room, did not find anything. We will be searching all visitors before letting them into pt room. Security has been informed. Amie Lynn RN - 05/06/2022 10:53 AM EDT Pt now awakens to voice, states, i'm tired. Dr Garcia updated on progress. Continuing to monitor before returning to pt floor. VSS. Catie Harrison MSW - 05/06/2022 10:51 AM EDT Palliative Care Social Work Note HEMATOLOGY NURSE EDUCATOR met with pt's Spouse, Ines. Pt was out of the room at the time. Ines expressed concern that ptmay have brought in some drugs with him as he was acting funny and in the bathroom a lot. Ines checked pt's usual hiding places but didn't find anything but is concerned as she knows street drugs could interfere with pt's care here and procedures. Pt's drugs of choice are meth and Fentanyl. Ines also is concerned that other family members may try to bring drugs in to pt. Pt's Medical team, Charge Nurse, and Security made aware. [place] and pt are but have been for awhile. Pt's ISABELLA has caused problems in their marriage and Ines set boundaries which instigated the separation. With pt's serious illness diagnosis, however, Ines is committed to help. Pt signed AD and named Ines as agent yesterday and Ines remains at bedside. Ines has her own apartment and pt, who lost his own housing, has been staying with his daughter, Fay, and other family members. Ines said that if pt needed a place to stay to recover from cancer treatment (or eventual EOL if need be) she is able to care for pt. Amie Lynn RN - 05/06/2022 10:47 AM EDT Pt in recovery room from endoscopy, respirations regular and unlabored, but minimally responsive to stimuli. Anesthesia aware, and monitoring closely. Blood sugar 125. Continuing to monitor Richy Donald MD - 05/06/2022 8:39 AM EDT Images from the original note were not included. Radiation Oncology Inpatient Consult PATIENT NAME: Carley Palomares DATE OF : 1965 HISTORY OF PRESENT ILLNESS Carley Palomares is a 56 y.o. male who is seen in consultation as an inpatient at [facility] regarding his lung cancer ONCOLOGIC HISTORY Overview: cT4N0 (Stage III-A) non small cell lung cancer (adenocarcinoma), Pancoast tumor left upperlobe Details: Narrative History 56 y.o.??male??with a PMH significant for COPD, HTN, bipolar 1 disorder, illicit drug use (active use of methamphetamine), hepatitis C (treated), who is a current smoker (1 PPD x??40??years, currently smoking 1/2 ppd). He presented after presenting to the ED 02/23/21 with left sided chest pain, at whichtime a CT chest revealed a 5.5 cm ALBERTO lung mass.??He notes that the chest pain has been occurring intermittently for one year, waxing and waning. He was referred to Dr. Kumari, who he saw on 04/06/22 and staging was initiated; I saw him on 04/21/22, at which time only a CT chest had been performed. He underwent bronchoscopy with biopsy, as noted below, on 04/29/22. He subsequently presented to the [facility] ED on 05/04/22 with increasing pain, dysphagia, and ongoing weight loss. He underwent a repeat CT chest, MRI of the C/T spine, and was admitted to hospital medicine. Staging & Therapy CT Chest w/ contrast 03/23/22: irregular mass in medial left lung apex, abutting the left common carotid artery. 5.5 cm maximal dimension. Bilateral emphysema. No adenopathy noted. ? Bronchoscopy, EBUS-TBNA, 04/29/22: -Findings: -Complete airway examination was performed from the glottis to the subsegmental level in each lobe of both lungs. Pertinent findings include normal bronchial anatomy, no endobronchial lesions and no secretions. -Transbronchial needle aspiration obtained from the following stations 1) Station 11Rs (superior) with 3 passes obtained with DIEGO present. Lymphocytes identified. 2) Station 7 with 3 passes obtained with DIEGO absent. 3) Station 2R with 2 passes obtained with DIEGO present. Lymphocytes identified. 4) Station 11L with 3 passes obtained with DIEGO present. Blood and/or respiratory epithelium identified. 5) Station 4L with 4 passes obtained with DIEGO present. Lymphocytes identified. 6) ALBERTO lung mass was identified at the proximal left lateral tracheal border with 6 passes obtained with DIEGO present. Lesional cells identified. 7) Note, all mediastinal, hilar, lobar and segmental stations are evaluated during the procedure andthose not listed were not biopsied due to small lymph node diameter, positive DIEGO on higher karina staging, alternative diagnosis or inability to continue with the procedure. Specifically, station 4R was not identified. -Pathology: 1) Lymph node, station 2R ?? (EBUS-guided FNA): Lymphocytes are present, compatible with lymph node sampling. Negative for metastatic carcinoma. 2) Lymph node, 11R (EBUS-guided FNA): Lymphocytes are present, compatible with lymph node sampling. Negative for metastatic carcinoma. 3) Lymph node, 11L (EBUS-guided FNA): Lymphocytes are present, compatible with lymph node sampling. Negative for metastatic carcinoma. 4) Lymph node, station 7 (EBUS-guided FNA): Lymphocytes are present, compatible with lymph node sampling. Negative for metastatic carcinoma. 5) Lymph node, station 4L ?? (EBUS-guided FNA): Lymphocytes are present, compatible with lymph node sampling. Negative for metastatic carcinoma. 6) Lung, left ??(EBUS-guided FNA): - Non-small cell carcinoma, favor adenocarcinoma - Note: The lesional cells are immunoreactive for TTF1-DAKO; they are negative for synaptophysin. Rare cells show positive staining for p40. CT Chest w/ contrast 05/04/22: 1. Unchanged size of left upper mediastinal mass/malignancy. This mass abuts the upper esophagus andthere is absence of the fat plane between the mass and the esophagus. In addition there is abnormal soft tissue projecting into the left T1-T2 neural foramen and also abutting the anterior T1 and T2 vertebral bodies, concerning for potential epidural extension of tumor. 2. Increased nonspecific ground glass opacity and compressive atelectasis surrounding the mass. 3. Paraseptal and centrilobular emphysema. No pneumothorax or pleural effusions. MRI thoracic / spine +/- contrast 05/04/22: -Large mass projecting in the left neck which displaces the esophagus and trachea to the right. The margins of the mass are somewhat ill-defined on the postcontrast. The mass involves the left lung apex, left paraspinous soft tissues at the C7, T1 and T2 levels, and extends into the leftscalene triangle. The mastoid involves the left lung apex, left paraspinous soft tissues at the C7, T1 and T2 levels, and extends into the left scalene triangle. The mass abuts the T1 and T2 vertebral bodies anteriorly with deformity of the ventral margin of the T1 vertebral segment with abnormal signal consistent with the erosion of the T1 vertebral body anteriorly and to extension into the marrow space of T1 segment. The mass abuts the T1 and T2 vertebral bodies anteriorly with deformity of the ventral margin of the T1 vertebral segment with abnormal signal consistent with the erosion of the T1 ve rtebral body anteriorly and to extension into the marrow space of T1 segment. No cord signal abnormality seen. No cord compression. MRI Brain +/- contrast 05/06/22: KATHARINE CT A/P w/ contrast 05/06/22: KATHARINE Upper EUS, EGD 05/06/22: - Normal esophagus. No evidence of significant extrinsic compression by endoscopic examination - Normal stomach. - Normal examined duodenum. - Lung mass abutting the cervical esophagus with generally preserved muscularis apart from a very focal area at 23 cm where the findings were indefinite for focal invasion. Other Pertinent Issues: None Currently, he has the following symptoms: Symptom Description Ongoing Intervention Pain Pain is now at a 3/10 on current regimen, localized to his left shoulder/upper thorax, radiating down the arm Dyspnea Denies dyspnea at rest, some dyspnea with moderate activity Cough Notes a smoker's cough, intermittently productive of sputum Dysphagia Notes intermittent difficulty with swallowing solids. Weight loss / Nutrition ~20 lbs over past few months Nutritional Intake Eating softer foods Voice Changes Denies Social Issues Travels ~ 30 minutes to [place] Tobacco Cigarettes, ~ 1/2 ppd. A beer / day currently. Total Pack Years ~ 40 years Other No Issues ECOG PS: 1 Grade ECOG PERFORMANCE STATUS 0 Fully active, able to carry on all pre-disease performance without restriction 1 Restricted in physically strenuous activity but ambulatory and able to carry out work of a light or sedentary nature 2 Ambulatory and capable of all selfcare but unable to carry out any work activities; up and about > 50% of waking hours 3 Capable of only limited selfcare; confined to bed or chair more than 50% of waking hours 4 Completely disabled; cannot carry on any selfcare; totally confined to bed or chair EXAM Vitals: 05/05/22 2309 05/06/22 0414 05/06/22 0612 05/06/22 0749 BP: (!) 168/107 (S) (!) 178/117 (!) 169/114 (!) 165/114 BP Location (NBP): Right arm Right arm Patient Position: Lying Lying Lying Pulse: 66 Resp: Temp: 36.7 ??C (98 ??F) 36.7 ??C (98 ??F) 36.6 ??C (97.8 ??F) TempSrc: Oral Oral Oral SpO2: 98% 98% 98% Weight: Physical Exam Constitutional: Appearance: He is well-developed. Eyes: Pupils: Pupils are equal, round, and reactive to light. Neck: Comments: Palpation reveals no adenopathy in cervical, SCLV, ICLV karina basins. Cardiovascular: Rate and Rhythm: Normal rate. Pulmonary: Effort: Pulmonary effort is normal. No respiratory distress. Breath sounds: Normal breath sounds. No wheezing or rales. Chest: Chest wall: No tenderness. Skin: Findings: No erythema. Neurological: Mental Status: He is alert and oriented to person, place, and time. Cranial Nerves: No cranial nerve deficit. 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 Altered sensation to light touch on left arm. Psychiatric: Behavior: Behavior normal. HISTORY Allergies as of 05/04/2022 - Review Complete 05/04/2022 Allergen Reaction Noted ??? Fentanyl Nausea Only 04/06/2022 ??? Fluoxetine 04/06/2022 Past Medical History: Diagnosis Date ??? Asthma ??? Bipolar 1 disorder ??? COPD (chronic obstructive pulmonary disease) ??? Herniated disc ??? HTN (hypertension) Past Surgical History: Procedure Laterality Date ??? HAND SURGERY ??? HERNIA REPAIR ? ? PRO [facility] EBUS GUIDED SAMPL 3/> NODE STATION/STRUX N/A 04/29/2022 BRONCH, W ENDOBRONCHIAL ULTRASOUND (EBUS) GUIDED SAMPLING, 3+ NODES (WRVU 5.21) performed by Antonio Jeronimo MD at [facility] END[facility] ??? PRO LAMINOTOMY, LUMBAR DISK, 1 INTRSP 06/17/2011 LAMINOTOMY, DECOMPRESSION, FORAMINOTOMY, LUMBAR performed by ANDI NELSON at [facility] MAIN OR ??? PRO NEEDLE BIOPSY LIVER 12/22/2011 LIVER BIOPSY performed by RITA ORLANDO at [facility] ??? PRO REDO EXCIS LUMBAR DISC 02/01/2013 LAMINOTOMY W\DECOMPRESSION, ONE LVL, LUMBAR ,RE-EXPL (INCLDNG PART. FACETECTOMY, FORAMINOTOMY &\OR DISCECTOMY) performed by Andi Nelson MD at [facility] MAIN OR Social History Socioeconomic History ??? Marital status: Spouse name: None ??? Number of children: None ??? Years of education: None ??? Highest education level: None Occupational History ??? None Tobacco Use ??? Smoking status: Current Every Day Smoker Packs/day: 1.00 Years: 40.00 Pack years: 40.00 Types: Cigarettes ??? Smokeless tobacco: Never Used ??? Tobacco comment: 6 cigs daily Substance and Sexual Activity ??? Alcohol use: No Comment: May 02, 2011 sober date ??? Drug use: Yes Types: Benzodiazapines , Marijuana, Methamphetamines, Opioids Comment: Current marijuana user; edibles ??? Sexual activity: None Other Topics Concern ??? None Social History Narrative Pt has been to his , Ines, for 30 years and together they have one child (Ever, 28 y-o). While pt and Ines are currently (pt is living with his daughter), Ines was at bedside when pt admitted to hospital and is involved in pt's care and decisions. Pt's lifelong struggle with alcohol and drug use has caused stress in the marital relationship and pt's health. Pt has attended [facility] rehab including at [facility]. Pt is open to behavioral interventions and for using Suboxone. Pt has 3 other children with his first and is currently on disability. Pt's Spouse andDaughter are supportive including put pt's medications in a lock box for distribution. Per Spouse the lock box works most of the time but has caused arguments at times. Additional information from prior note about pt's [facility]: History of drinking daily until he passed out 20 + beers plus vodka Drank like this age 17 Was sober for 14 months while incarcerated 4 DUI[facility] DUI August 2009. Not currently licensed On disability for bipolar disease lives with spouse asthma and depression aged 19 and 21 Social Determinants of Health Financial Resource Strain: Low Risk ??? Difficulty of Paying Living Expenses: Not very hard Food Insecurity: Food Insecurity Present ??? Worried About Running Out of Food in the Last Year: Sometimes true ??? Ran Out of Food in the Last Year: Never true Transportation Needs: No Transportation Needs ??? Lack of Transportation (Medical): No ??? Lack of Transportation (Non-Medical): No Physical Activity: Not on file Housing Stability: High Risk ??? Unable to Pay for Housing in the Last Year: No ??? Number of Places Lived in the Last Year: 3 ??? Unstable Housing in the Last Year: No Family History Problem Relation Age of Onset ??? Cancer Mother lung cancer ??? Cancer Father prostate cancer ROS: I reviewed and agree with the nursing review of systems accompanying this encounter. The remainder of the comprehensive review of systems was negative with the exception of the pertinent positivesand negatives noted above. MEDICATIONS No current facility-administered medications on file prior to encounter. Current Outpatient Medications on File Prior to Encounter Medication Sig Dispense Refill ??? omeprazole (PriLOSEC) 40 mg Capsule, Delayed Release(E.C.) Take 40 mg by mouth daily. ??? metoprolol succinate XL (Toprol-XL) 25 mg Tablet Sustained Release 24 hr Take 25 mg by mouth daily. ??? cloNIDine (Catapres) 0.1 mg Tablet Take 0.2 mg by mouth 2 times daily. ??? ibuprofen (Advil) 200 mg Tablet Take 400 mg by mouth every 6 hours as needed for Pain. ??? naproxen sodium (ALEVE) 220 mg Capsule Take 220 mg by mouth 2 times daily as needed. ??? divalproex EC (Depakote) 500 mg Tablet, [...] 4 hours as needed. Use with spacer IMAGING I have personally reviewed the imaging reports and images referenced in the oncologic hx and agree with the assessment as stated. Further pertinent imaging data below LABORATORY VALUES CONTRAINDICATIONS TO RADIOTHERAPY NO YES: Date, site, dose (women only) X Prior Radiotherapy X Collagen-Vascular dz X ASSESSMENT /PLAN HN CANCER Staging CT Chest Pathologic Evaluation: mediastinal / primary staging completed MRI T/L Spine MRI Brain Further Staging MRI Brachial Plexus PFTs Therapy Discussion Carley Palomares is now admitted due to intractable pain associated with his left upper lobe Pancoast tumor, now dramatically improved on current pain regimen. He has had multiple staging studies while inpatient, and was found to have direct extension of his malignancy into adjacent thoracic vertebral bodies and adjacent foramina, as well as small volume epidural disease with no resultant cord compression . He has been seen by thoracic oncology and is not felt to be a surgical candidate. We discussed definitive chemoradiotherapy in detail; he has epidural extension but there is some room between disease and the cord, and a definitive dose should be feasible. We discussed the risks of radiotherapy, no ting issue specific to his situation. he has not been discussed at [facility] tumor board and we will do so. As he has had an evaluation of the mediastinum, and adequate imaging of His C/A/P as well as his brain MRI, a PET-CT is unlikely to yield information that would change our current plan. After discussion with Dr. Ash, we will proceed with treatment planning. We discussed the rationale and logistics (including simulation, planning, and treatment) of definitive radiotherapy. We discussed the risks of therapy, including but not limited to short term sequelae(fatigue, esophagitis, skin erythema, cough) and senior care sequelae (radiation pneumonitis, the potential for increased dyspnea resulting in oxygen dependence, esophageal stricture, and the possibilityof significant damage to soft tissue, bone or skin requiring surgical or medical intervention). Mr. Palomares expressed an understanding of these risks. The patient had a number of questions regarding optimal therapy and potential side effects. These questions were answered to his satisfaction Concurrent chemotherapy recommendations: to discuss with medical oncology Adjuvant chemotherapy recommendations: to discuss with medical oncology Therapy Decision Proceed with definitive chemoradiotherapy. Simulation on Tuesday. MRI Brachial Plexus while inpatient. Supportive Care Palliative care already engaged regarding pain management. OTHER ISSUES Tobacco use: we discussed the need to quit smoking and that regardless of treatment decisions both the efficacy of therapy would be decreased and the toxicity increased if he were to continue smoking through treatment. he expressed an understanding of these recommendations. We discussed seeing a cessa tion counselor, and he was not interested at this time. 20 minutes of this 40 minute visit were spent discussing treatment options. Fifi Bishop MD - 05/06/2022 7:11 AM EDT Inpatient Medicine Progress Note Active Hospital Problems: Hospital Day 1 day Active Hospital Problems Diagnosis ??? Lung mass Resolved Hospital Problems No resolved problems to display. ID: [id number] y.o. male with a PMH of Interval Events: -COWS of 3 --> melatonin given -Breakthrough pain --> on hydromorphone panel -0.1mg clonidine administered for BP 178/117 -EGD/EUS today 05/06 Subjective: Pt reports poor sleep d/t back pain, but his pain is well controlled this AM after hydromorphone. His LUE weakness, numbness, and tingling are unchanged from yesterday. Currently denies fever/chills, chest pain, cough, SOB, abdominal pain, and dysuria. Vitals: Last value Range last 24 hrs Temperature Temp: 36.4 ??C (97.5 ??F) Temp: [36.4 ??C (97.5 ??F)-36.8 ??C (98.2 ??F)] Heart Rate Heart Rate: 69 Heart Rate: [66-86] Blood Pressure BP: (!) 144/95 BP: (105-178)/(80-119) Respiratory Rate Resp: 16 Resp: [16-22] SpO2 SpO2: 94 % SpO2: [94 %-100 %] IO No intake/output data recorded. Wt (last/admit) 77.1 kg (169 lb 15.6 oz) 77.1 kg Ins/Outs: Intake/Output Summary (Last 24 hours) at 05/06/2022 1121 Last data filed at 05/06/2022 0800 Gross per 24 hour Intake 0 ml Output -- Net 0 ml Physical Exam: GENERAL: Well-nourished male appears stated age, in NAD HEENT: EOMI, sclera anicteric, MMM, oropharynx clear of lesions/exudate CHEST/CARDIO: RRR, no murmurs appreciated RESPIRATORY: Unlabored respirations on RA, lungs CTA BL ABD/GI/: Soft, NT/ND, normoactive BS EXTREMITIES: No peripheral edema, distal pulses intact INTEGUMENT: Warm, dry, no obvious rashes or lesions on exposed skin NEURO: Alert, PERRLA, moving all extremities spontaneously, speech and comprehension intact, no gross focal deficits PSYCH: Mood and behavior appropriate for situation, cooperative with exam Labs: CBC: Recent Labs 05/06/22 0607 05/05/22 0720 05/04/22 1550 WBC 11.0* 15.2* 10.4* HGB 14.8 15.0 15.9 PLATELET 296 292 351 Chemistry: Recent Labs 05/06/22 0607 05/05/22 0705/04/22 1550 NA 133* 136 135 K 4.4 4.6 4.4 CL 102 104 101 CO2 23 23 23 BUN 21* 19 20 CREATININE 0.80 0.73* 0.91 GLUCOSE 133 -- 102 Recent Labs 05/06/22 0607 05/05/22 0720 05/04/22 1550 CALCIUM 8.9 8.8 9.3 MAGNESIUM -- -- 0.89 PHOS -- -- 3.4 LFT's: Recent Labs 05/05/22 0720 05/04/22 1550 BILITOT 0.4 0.3 ALBUMIN 3.9 4.3 ALKPHOS 79 86 ALT 37 38 AST 37 36 Coags: No results for input(s): PT, INR, PTT, FIBRINOGEN, DDIMER in the last 168 hours. Invalid input(s): THROMBIN TIME Cardiac enzymes: Recent Labs 05/04/22 1550 TROPONINT <0.01 Endocrine: No results for input(s): TSH, CORTISOL in the last 7068 hours. Invalid input(s): OSOCGLXVYON2D No results for input(s): HA1C in the last 7068 hours. Heme: Recent Labs 05/05/22 0720 LDH 214 Lipids: Imaging/Studies: Results for orders placed or performed during the hospital encounter of 05/04/22 XR Chest PA & Lateral (Generic) (Exam End: 05/04/2022 3:38 PM) Impression 1. Stable left upper lobe paramediastinal mass. 2. No superimposed acute cardiopulmonary process. Thank you for letting us participate in the care of this patient. If you are a health care provider and have any questions regarding this report, please contact the number below. For patients who have questions please contact the health nurse care manager that requested your imaging first. Chest w Contrast (Exam End: 05/04/2022 5:59 PM) Impression 1. Unchanged size of left upper mediastinal [...] centrilobular emphysema. No pneumothorax or pleural effusions. Thank you for letting us participate in the care of this patient. If you are a health care provider and have any questions regarding this report, please contact the number below. For patients who have questions please contact the health nurse care manager that requested your imaging first. Cervical Spine wwo Contrast (Exam End: 05/04/2022 9:40 PM) Impression 1. Left lung apex mass extending to the scalene triangle, paraspinous soft tissues and superior mediastinum. 2. There is a involvement of the T1 and T2 vertebral bodies, the left C7-T1 through T3-T4 neural foramina and the epidural space on the left in the upper thoracic spine. 3. There is a evidence of vascular encasement of the left vertebral artery and partial encasement of the left subclavian artery. The superior margin of the mass projects along the course of the left brachial plexus. This would be better assessed with dedicated brachial plexus imaging. 4. Changes of cervical spondylosis as described. Thank you for letting us participate in the care of this patient. If you are a health care provider and have any questions regarding this report, please contact the number below. For patients who have questions please contact the health nurse care manager that requested your imaging first. Thoracic Spine wwo Contrast (Exam End: 05/04/2022 9:40 PM) Impression 1. Left lung apex mass extending to the scalene triangle, paraspinous soft tissues and superior mediastinum. 2. There is a involvement of the T1 and T2 vertebral bodies, the left C7-T1 through T3-T4 neural foramina and the epidural space on the left in the upper thoracic spine. 3. There is a evidence of vascular encasement of the left vertebral artery and partial encasement of the left subclavian artery. The superior margin of the mass projects along the course of the left brachial plexus. This would be better assessed with dedicated brachial plexus imaging. 4. Changes of cervical spondylosis as described. Thank you for letting us participate in the care of this patient. If you are a health care provider and have any questions regarding this report, please contact the number below. For patients who have questions please contact the health nurse care manager that requested your imaging first. Brain wwo Contrast (Generic) (Exam End: 05/05/2022 8:51 AM) Impression No evidence of intracranial metastatic disease. No acute intracranial processes identified. I have personally reviewed the image(s) and the resident's interpretation and agree with the findings, Bishop Otto at 05/05/2022 10:31 AM Thank you for letting us participate in the care of this patient. If you are a health care provider and have any questions regarding this report, please contact the number below. For patients who have questions please contact the health nurse care manager that requested your imaging first. Abdomen & Pelvis w Contrast (Exam End: 05/05/2022 11:27 AM) Impression No metastatic disease identified in the abdomen and pelvis. Thank you for letting us participate in the care of this patient. If you are a health care provider and have any questions regarding this report, please contact the number below. For patients who have questions please contact the health nurse care manager that requested your imaging first. Scheduled Medications: ??? cloNIDine 0.2 mg Oral BID ??? [MAR Hold] divalproex EC 500 mg Oral BID ??? [DEC Hold] multivitamin with minerals 1 tablet Oral Daily ??? [MAR Hold] pantoprazole EC 40 mg Oral Daily ??? [MAR Hold] enoxaparin 40 mg Subcutaneous Nightly ??? [MAR Hold] metoprolol tartrate 12.5 mg Oral 2 times per day ??? buprenorphine 300 mcg Buccal BID Followed by ??? [DEC Hold] buprenorphine-naloxone 1 mg of opiate Sublingual BID Followed by ??? [MAR Hold] buprenorphine-naloxone 2 mg of opiate Sublingual BID Followed by ??? [DEC Hold] buprenorphine-naloxone 4 mg of opiate Sublingual BID Followed by ??? [DEC Hold] buprenorphine-naloxone 4 mg of opiate Sublingual 4 Times Daily ??? [DEC Hold] senna-docusate 2 tablet Oral BID ??? [MAR Hold] gabapentin 300 mg Oral TID ??? [MAR Hold] dexAMETHasone 4 mg Oral 2 times per day ??? [DEC Hold] acetaminophen 975 mg Oral TID Infusing Medications: PRN Medications: [DEC Hold] gadoterate meglumine, [MAR Hold] polyethylene glycoL (MIRALAX) oral powder, [MAR Hold] HYDROmorphone OR [DEC Hold] HYDROmorphone, [DEC Hold] melatonin Assessment & Plan: 56 y.o. male known lung mass and history of OUD presenting with progressive, uncontrolled left-sidedneck, torso, and arm pain as well as reported neurologic symptoms. Imaging showing extension of the mass with involvement of the T1/T2 vertebral bodies, left C7-T1 through T3-T4 neural formina and epidural space on the left upper thoracic spine. Also with vascular encasement of the left vertebral artery and partial encasement of the left subclavian artery. Although there were not overt signs of left-sided upper extremity weakness on exam, patient and family reports that he has been dropping objects from the left hand. He also has numbness and paresthesias. Therefore, would consult Neurosurgery regarding possibility of surgical intervention. Also have ordered MRI brain and patient has received dexamethasone while in the ER. ?? #ALBERTO lung mass #Concern for Pancoast tumor - Hematology/Oncology consult - MRI brain: no acute intracranial process - CT A/P for staging: no metastatic disease identified in the abdomen and pelvis - LDH normal 214 - Tumor is unresectable - Can facilitate concurrent chemotherapy during radiation, or primary systemic chemotherapy (if radiation is not recommended - Radiation oncology consult, appreciate recs - Neurosurgery consult, appreciate recs -s/p dexamethasone 10 mg IV -Dexamethasone 4mg BID -NSAIDs and gabapentin - F/U final biopsy results -GI c/s -Concern for cancer invading esophageal wall -EGD/EUS today 05/06 #Pain control - Dilaudid 1 mg SC q4hr prn severe pain - Palliative care consult, appreciate assistance: -Micro induction of buprenorphine -1 mg SQ Q 2 hours prn or 4 mg po Q 2 hours prn (use oral first) -Gabapentin 300 mg po TID -Continue decadron 4 mg po BID -Tylenol 1000 mg po TID ?? #Substance use disorder - BIT consult in place - Clonidine 0.2 mg BID ?? #Reported hx of COPD/asthma - PFTs ordered but not yet done ?? #Bipolar disorder - Continue Depakote ?? #Home medications - MTV - Pantoprazole - Metoprolol, divided dosing 12.5 mg BID ?? #Routine - Code status: Attempt Cardiopulmonary Resuscitation - Inpatient - Access: 1 PIV - Lines: n/a - Diet: Regular diet - DVT ppx: Lovenox - DPOA: Primary Emergency Contact: Jaja Palomares, - Dispo: pending clinical course Fifi Bishop MD (PGY-1) Anesthesiology Blue Team Pager [phone] Associated attestation - Chema Davila MD - 05/14/2022 3:26 PM EDT Attending Attestation Please see Dr. Bishop's note for details of the patient history of presentation and data. I have discussed, reviewed and agree with the documented History, Physical findings, Assessment and Plan of care. I have examined the patient myself and personally reviewed all studies. In addition, I certify that I am a [facility] credentialed attending provider with admitting privileges and that the patient meets or has met medical necessity to require an inpatient IPI level of care meeting a minimum of two midnights or is on the [facility] inpatient only procedure list (status C) due to: uncontrolled pain requiring titration of medications to achieve optimal effect and to minimize immediate or severe side effects Catie Harrison MSW - 05/05/2022 10:34 AM EDT Advance Directive completed naming spouse, Ines, as agent. Copy to be uploaded to chart and original given to pt. Catie Harrison MSW - 05/05/2022 9:56 AM EDT Palliative Care Social Work Note HEMATOLOGY NURSE EDUCATOR joined Palliative Attending Liudmila Brunner APRN, in meeting with pt and Ines (Spouse) who was at bedside. Brief Psychosocial Assessment Family: Pt has been to Ines for over 30 years. They had been going through a rough patch so pt had been staying with daughter Marisela (28 y-o) prior to admission. Marisela has children of her own and pt is close with grandchildren. Ines is at the bedside supporting pt. Pt and Spouse met in high school but then went on to other people and have children. Pt/Spouse reconnected and when they were 28 y-o and together have one child, Marisela. Pt has one other child from his previous marriage and Ines has three children from her prior marriage. Pt is also in touch with his side of the family including his brother. Spouse, Ines, shared some concerns as pt shares a drug history with other family members. 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 This was a difficult experience for several reasons including the relationship had been very difficult when pt was young. Understanding of Illness: Pt was able to describe his cancer and that he has a tumor pushing on my spine. Pt had a number of outpatient medical appointments scheduled for this week but his pain and shortness of breath was so bad I thought I was having a heart attack and pt came to the ED. Pt is aware he may have radiation to help shrink the tumor. Pt also understands that treating his cancer likely will help his pain. Substance Use Disorder: Pt has had a frankel with drugs and/or alcohol all his life. Pt's side ofthe family also has a history of ISABELLA. Pt [facility] several [facility]. Of recent street drug use, pt said, I know I shouldn't have done it. Pt shared he had broken his drug contract with a provider and so no longer was prescribed pain medication. Pt then went to the street to self-medicate. Support Network: Pt's Spouse and Daughter are good supports for pt including keeping medication lockboxes. Pt is able to move between living with his Spouse and their Daughter. Pt's Spouse, Ines, hasa good support network of her children, other family, and friends, they call me every day. Ines also inquired about family support (therapy) as they are not only experiencing ISABELLA within the family but also a serious cancer. Personality/Behavior: Per Spouse, when pt is frustrated (including emotional pain) or in physical pain this may be expressed in anger. Current Concerns: Pt is experiencing pain and was open to recommendations. Pt also has lost a lot ofweight recently very quickly and has very little appetite. Pt also has not been sleeping well due to the pain. Pt's Spouse has noticed that pt is more emotional including started crying this week, which does not happen often. Spouse believes this might be because pt is scared about his cancer diagnosis and the uncertainty of what will happen. Final thoughts: Pt appreciates straight talk. Pt said, ask me anything and I will tell you honestly. Pt is open about his ISABELLA and said is willing to start Suboxone in the hospital and is open to other recommendations. Pt also seemed to be willing to meet with BIT while in the hospital and follow-up with the Palliative Care outpatient clinic for cancer-related pain management in the context of active ISABELLA. documented in this encounter H&P Notes Heladio Woods MD - 05/06/2022 9:59 AM EDT Procedure: egd/eus Indication: abnornmal imaging History of Present Illness: Carley Palomares is a 56 y.o. 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 Patient Active Problem List Diagnosis Code ??? Lumbar disc herniation M51.26 ??? Hepatitis C, chronic B18.2 ??? Mass of upper lobe of left lung R91.8 ??? Lung mass R91.8 Medications: Reviewed in EDH Allergies Allergen Reactions ??? Fentanyl Nausea Only ??? Fluoxetine Other reaction(s): Other Social History/Family History: Reviewed in EDH. No changes Exam: Patient Vitals for the past 24 hrs: Temp Heart Rate From SP02 Pulse Resp BP SpO2 O2 Device 05/05/22 1000 -- 83 bpm -- -- -- 95 % -- 05/05/22 1013 -- -- -- -- -- -- RA 05/05/22 1030 -- 78 bpm -- -- (!) 150/119 96 % -- 05/05/22 1100 -- (!) 104 bpm -- -- (!) 170/123 97 % -- 05/05/22 1222 36.5 ??C (97.7 ??F) 77 bpm 77 16 (!) 158/119 100 % RA 05/05/22 1423 -- 85 bpm 83 -- (!) 150/103 -- -- 05/05/22 1642 36.8 ??C (98.2 ??F) 85 bpm 86 18 (!) 164/102 95 % RA 05/05/22 1950 36.8 ??C (98.2 ??F) 82 bpm 86 18 (!) 157/107 99 % RA 05/05/22 2204 -- -- -- -- (!) 173/108 -- -- 05/05/22 2309 36.7 ??C (98 ??F) 78 bpm 66 20 (!) 168/107 98 % RA 05/06/22 0414 36.7 ??C (98 ??F) 75 bpm -- 22 (!) 178/117 98 % RA 05/06/22 0612 -- -- -- -- (!) 169/114 -- -- 05/06/22 0749 36.6 ??C (97.8 ??F) 74 bpm -- 20 (!) 165/114 98 % RA 05/06/22 0800 -- -- -- -- -- -- RA 05/06/22 0927 36.4 ??C (97.5 ??F) -- 69 -- (!) 155/109 97 % RA Axox3, nad Anicteric, MMM CTAB RRR, no m/r/g abd soft nt nd +bs Assessment and Plan: Proceed with EGD: EUS: ASA Grade: ASA 3 - Patient with moderate systemic disease with functional limitations Mallampati score:I (soft palate, uvula, fauces, tonsillar pillars visible) Sedation plan: MAC Risks and benefits of the procedure were discussed with the patient. Consent has been signed. Heladio Woods MD Cherelle Ochoa MD - 05/05/2022 5:57 AM EDT Images from the original note were not included. Hospital Medicine Admission History and Physical Patient information: Patient Name: Carley Palomares : 1965 Service: Hospital Medicine CC: left-sided neck and torso pain, uncontrolled pain History of Present Illness Carley Palomares is a 56 y.o. male with past medical history significant for ALBERTO lung mass, current tobacco use, HTN, COPD/asthma, bipolar 1 disorder, substance use disorder (fentanyl and methamphetamine)who presents with progressive pain over the last few weeks and admitted for pain control, concern for Pancoast tumor. Per patient, he has pain on the left side of his neck, torso, and down his left arm that has been ongoing for several months and has worsened over the last few weeks. The pain is worse with laying down. He has been taking alternating Tylenol, Aleve, and ibuprofen at home with limited effect. He describes it as like a toothache. Pain is constant, severe and is 10/10 at its worst, which is usually atnight. He endorses blurry vision, which he says is his baseline. Notes numbness and tingling in his left arm. He is right handed and notes increased weakness in his left arm and often drops objects. 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 He also has had limited oral intake. Endorses nausea vomiting. He complains of difficulty swallowing with solids. His Jaja says he has lost 10 lbs in the last few weeks, and >30 labs in the last 6 months. Notes a chronic cough, no increase in phlegm or dyspnea, no hemoptysis. In the ER, he received 2L IVF bolus. For pain he received several doses of morphine reportedly without any effect. He received in total required 8mg of IV morphine, 15mg of ketorolac, 0.1mg IV dilaudidwithout significant relief. Narcotic dose was increased dilaudid 0.5 mg IV prn which per pt decreased pain from 10/10 to 7/10. He reports he received a prescription for suboxone last week from an OSH but never filled the script. He endorses recent use last week of fentanyl and methamphetamine as self-medication for his symptoms. He endorses 40 pack year smoking history. He has cut down to 2 cigarettes per day. He declined nicotine patch. He lives with his Jaja. 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 Review of Systems: No fevers, chills or malaise; No blurry vision, spots in vision or loss of vision. No sore throat; no difficulty swallowing or chewing. No palpitations; No lightheadedness No SOB or BENJAMIN No GERD; No diarrhea or constipation No dysuria; no incontinuence No rashes; no lesions Patient Active Problem List Diagnosis Code ??? Lumbar disc herniation M51.26 ??? Hepatitis C, chronic B18.2 ??? Mass of upper lobe of left lung R91.8 ??? Lung mass R91.8 Past Medical History: Diagnosis Date ??? Asthma ??? Bipolar 1 disorder ??? COPD (chronic obstructive pulmonary disease) ??? Herniated disc ??? HTN (hypertension) Past Surgical History: Procedure Laterality Date ??? HAND SURGERY ??? HERNIA REPAIR ? ? PRO [facility] EBUS GUIDED SAMPL 3/> NODE STATION/STRUX N/A 04/29/2022 BRONCH, W ENDOBRONCHIAL ULTRASOUND (EBUS) GUIDED SAMPLING, 3+ NODES (WRVU 5.21) performed by Antonio Jeronimo MD at [facility] ENDOSCOPY ??? PRO LAMINOTOMY, LUMBAR DISK, 1 INTRSP 06/17/2011 LAMINOTOMY, DECOMPRESSION, FORAMINOTOMY, LUMBAR performed by ANDI NELSON at [facility] MAIN OR ??? PRO NEEDLE BIOPSY LIVER 12/22/2011 LIVER BIOPSY performed by RITA ORLANDO at [facility] ENDOSCOPY ??? PRO REDO EXCIS LUMBAR DISC 02/01/2013 LAMINOTOMY W\DECOMPRESSION, ONE LVL, LUMBAR ,RE-EXPL (INCLDNG PART. FACETECTOMY, FORAMINOTOMY &\OR DISCECTOMY) performed by Andi Nelson MD at [facility] MAIN OR No current facility-administered medications on file prior to encounter. Current Outpatient Medications on File Prior to Encounter Medication Sig Dispense Refill ??? metoprolol succinate XL (Toprol-XL) 25 mg Tablet Sustained Release 24 hr Take 25 mg by mouth daily. ??? cloNIDine (Catapres) 0.1 mg Tablet clonidine HCl 0.1 mg tablet TAKE 1 TABLET BY MOUTH TWICE DAILY ??? omeprazole (PriLOSEC) 10 mg Capsule, Delayed Release(E.C.) Take 40 mg by mouth daily. ??? divalproex EC (Depakote) 500 mg Tablet, Delayed Release (E.C.) Take 500 mg by mouth 2 times daily. ??? acetaminophen (TYLENOL) 325 mg tablet Take 2 tablets by mouth every 4 hours as needed for Pain. 30 tablet ??? albuterol (PROVENTIL HFA;VENTOLIN HFA) 90 mcg/Actuation inhaler Inhale 2 puffs into the lungs every 4 hours as needed. Use with spacer ??? ibuprofen (Advil) 200 mg Tablet Take 200 mg by mouth every 6 hours as needed for Pain. ??? naproxen sodium (ALEVE) 220 mg Capsule Take 220 mg by mouth 2 times daily as needed. ??? MULTIVITAMIN ORAL Take by mouth daily. Allergies Allergen Reactions ??? Fentanyl Nausea Only ??? Fluoxetine Other reaction(s): Other Social History Socioeconomic History ??? Marital status: Spouse name: Not on file ??? Number of children: Not on file ??? Years of education: Not on file ??? Highest education level: Not on file Occupational History ??? Not on file Tobacco Use ??? Smoking status: Current Every Day Smoker Packs/day: 1.00 Years: 40.00 Pack years: 40.00 Types: Cigarettes ??? Smokeless tobacco: Never Used ??? Tobacco comment: 6 cigs daily Substance and Sexual Activity ??? Alcohol use: No Comment: May 02, 2011 sober date ??? Drug use: Yes Types: Benzodiazapines , Marijuana Comment: Current marijuana user; edibles ??? Sexual activity: Not on file Other Topics Concern ??? Not on file Social History Narrative History of drinking daily until he passed out 18 + beers plus vodka Drank like this age 17 Was sober for 14 months while incarcerated 4 DUI's Last DUI August 2009 Not currently liscenced On disability for bipolar disease lives with spouse 2 biologic children asthma and depression aged 19 and 21 has 4 kids (they have one daughter together) 1 child lives in the house Social Determinants of Health Financial Resource Strain: Low Risk ??? Difficulty of Paying Living Expenses: Not very hard Food Insecurity: Food Insecurity Present ??? Worried About Running Out of Food in the Last Year: Sometimes true ??? Ran Out of Food in the Last Year: Never true Transportation Needs: No Transportation Needs ??? Lack of Transportation (Medical): No ??? Lack of Transportation (Non-Medical): No Physical Activity: Not on file Housing Stability: High Risk ??? Unable to Pay for Housing in the Last Year: No ??? Number of Places Lived in the Last Year: 3 ??? Unstable Housing in the Last Year: No Vitals: Last value Range last 24 hrs Temperature Temp: 36.7 ??C (98 ??F) Temp: [36.7 ??C (98 ??F)] Heart Rate Heart Rate: 78 Heart Rate: [70-91] Blood Pressure BP: (!) 178/115 BP: (138-195)/(74-120) Respiratory Rate Resp: 18 Resp: [10-20] SpO2 SpO2: 98 % Oxygen Therapy O2 Device: None (Room air) SpO2: [95 %-100 %] No intake/output data recorded. Physical Exam: Physical Exam Constitutional: General: He is not in acute distress. Appearance: Normal appearance. He is normal weight. He is not toxic-appearing. HENT: Head: Normocephalic and atraumatic. Mouth/Throat: Mouth: Mucous membranes are moist. Eyes: Extraocular Movements: Extraocular movements intact. Conjunctiva/sclera: Conjunctivae normal. Comments: Anisocoria with R>L pupil, both pupils reactive to light Cardiovascular: Rate and Rhythm: Normal rate and regular rhythm. Heart sounds: No murmur heard. No gallop. Pulmonary: Effort: No respiratory distress. Breath sounds: No stridor. Rhonchi present. Abdominal: General: Abdomen is flat. There is no distension. Palpations: Abdomen is soft. Tenderness: There is no abdominal tenderness. There is no guarding. Musculoskeletal: General: No swelling or tenderness. Normal range of motion. Cervical back: Normal range of motion. Right lower leg: No edema. Left lower leg: No edema. Lymphadenopathy: Cervical: No cervical adenopathy. Skin: General: Skin is warm and dry. Coloration: Skin is not jaundiced. Findings: No bruising. Neurological: Mental Status: He is alert and oriented to person, place, and time. Cranial Nerves: No cranial nerve deficit. Sensory: No sensory deficit. Comments: LUE 4/5 and RUE 5/5 strength. Bilateral LE 5/5 strength. Gait deferred. Psychiatric: Mood and Affect: Mood normal. Behavior: Behavior normal. Labs last 24 hours: Recent Results (from the past 24 hour(s)) Comprehensive metabolic panel (non-fasting) Result Value Ref Range Glucose Lvl 102 65 - 199 mg/dL BUN 20 10 - 20 mg/dL Creatinine 0.91 0.80 - 1.50 mg/dL Sodium 135 135 - 145 mmol/L Potassium 4.4 3.5 - 5.0 mmol/L Chloride 101 98 - 107 mmol/L CO2 23 22 - 31 mmol/L Anion Gap 11 5 - 15 mmol/L Calcium 9.3 8.5 - 10.5 mg/dL Total Protein 8.1 (H) 6.1 - 8.0 g/dL Albumin 4.3 3.2 - 5.2 g/dL AST 36 0 - 39 unit/L ALT 38 0 - 55 unit/L Alk Phos 86 40 - 130 unit/L Total Bilirubin 0.3 0.2 - 1.3 mg/dL Estimated GFR 100 >=60 mL/min/1.73 m?? Troponin Result Value Ref Range Troponin-T <0.01 0.00 - 0.00 ng/mL Hemogram Result Value Ref Range WBC 10.4 (H) 4.0 - 9.5 x10(3)/mcL RBC 5.01 4.58 - 5.54 x10(6)/mcL Hemoglobin 15.9 13.7 - 16.5 g/dL Hematocrit 44.1 40.5 - 48.5 % MCV 88.0 82.9 - 93.1 fL MCH 31.7 27.5 - 32.1 pg MCHC 36.1 (H) 32.0 - 35.7 g/dL Platelets 351 145 - 357 x10(3)/mcL RDWSD 40.7 36.0 - 45.0 fL RDWCV 12.7 11.4 - 13.8 % MPV 9.7 7.6 - 12.9 fL nRBC % Auto 0.0 % nRBC Abs Auto 0.000 0.000 - 0.000 x10(3)/mcL Differential, Automated Result Value Ref Range Neutrophils % 69.4 % Neutr Abs (ANC) 7.23 (H) 1.70 - 6.10 x10(3)/mcL Lymphocytes % 18.4 % Lymphocytes Abs 1.9 0.9 - 3.2 x10(3)/mcL Monocytes % 8.3 % Monocyte Abs 0.9 0.3 - 0.9 x10(3)/mcL Eosinophils % 3.3 % Eosinophils Abs 0.3 0.0 - 0.4 x10(3)/mcL Basophils % 0.2 % Basophils Abs 0.0 0.0 - 0.1 x10(3)/mcL Immature Gran % 0.40 % Cathy Gran Abs 0.04 0.00 - 0.04 x10(3)/mcL Magnesium Result Value Ref Range Magnesium 0.89 0.69 - 1.07 mmol/L Phosphorus Result Value Ref Range Phosphorus 3.4 2.5 - 4.5 mg/dL Recent Labs 05/04/22 1550 WBC 10.4* HGB 15.9 HCT 44.1 PLATELET 351 Recent Labs 05/04/22 1550 NA 135 K 4.4 CL 101 CO2 23 BUN 20 CREATININE 0.91 Recent Labs 05/04/22 1550 AST 36 ALT 38 ALKPHOS 86 BILITOT 0.3 Recent Labs 05/04/22 1550 CALCIUM 9.3 PHOS 3.4 Microbiology: None Imaging: Results for orders placed or performed during the hospital encounter of 05/04/22 XR Chest PA & Lateral (Generic) (Exam End: 05/04/2022 3:38 PM) Impression 1. Stable left upper lobe paramediastinal mass. 2. No superimposed acute cardiopulmonary process. Thank you for letting us participate in the care of this patient. If you are a health care provider and have any questions regarding this report, please contact the number below. For patients who have questions please contact the health nurse care manager that requested your imaging first. Chest w Contrast (Exam End: 05/04/2022 5:59 PM) Impression 1. Unchanged size of left upper mediastinal [...] centrilobular emphysema. No pneumothorax or pleural effusions. Thank you for letting us participate in the care of this patient. If you are a health care provider and have any questions regarding this report, please contact the number below. For patients who have questions please contact the health nurse care manager that requested your imaging first. Cervical Spine wwo Contrast (Exam End: 05/04/2022 9:40 PM) Impression 1. Left lung apex mass extending to the scalene triangle, paraspinous soft tissues and superior mediastinum. 2. There is a involvement of the T1 and T2 vertebral bodies, the left C7-T1 through T3-T4 neural foramina and the epidural space on the left in the upper thoracic spine. 3. There is a evidence of vascular encasement of the left vertebral artery and partial encasement of the left subclavian artery. The superior margin of the mass projects along the course of the left brachial plexus. This would be better assessed with dedicated brachial plexus imaging. 4. Changes of cervical spondylosis as described. Thank you for letting us participate in the care of this patient. If you are a health care provider and have any questions regarding this report, please contact the number below. For patients who have questions please contact the health nurse care manager that requested your imaging first. Thoracic Spine wwo Contrast (Exam End: 05/04/2022 9:40 PM) Impression 1. Left lung apex mass extending to the scalene triangle, paraspinous soft tissues and superior mediastinum. 2. There is a involvement of the T1 and T2 vertebral bodies, the left C7-T1 through T3-T4 neural foramina and the epidural space on the left in the upper thoracic spine. 3. There is a evidence of vascular encasement of the left vertebral artery and partial encasement of the left subclavian artery. The superior margin of the mass projects along the course of the left brachial plexus. This would be better assessed with dedicated brachial plexus imaging. 4. Changes of cervical spondylosis as described. Thank you for letting us participate in the care of this patient. If you are a health care provider and have any questions regarding this report, please contact the number below. For patients who have questions please contact the health nurse care manager that requested your imaging first. Other studies: Assessment/Plan: 56 y.o. male known lung mass and history of OUD presenting with progressive, uncontrolled left-sidedneck, torso, and arm pain as well as reported neurologic symptoms. #ALBERTO lung mass #Concern for Pancoast tumor Imaging showing extension of the mass with involvement of the T1/T2 vertebral bodies, left C7-T1 through T3-T4 neural formina and epidural space on the left upper thoracic spine. Also with vascular encasement of the left vertebral artery and partial encasement of the left subclavian artery. Although there were not overt signs of left-sided upper extremity weakness on exam, patient and family reports that he has been dropping objects from the left hand. He also has numbness and paresthesias. Therefore, would consult Neurosurgery regarding possibility of surgical intervention. Also have ordered MRI brain and patient has received dexamethasone while in the ER. - Hematology/Oncology consult - MRI brain wwo ordered - CT A/P for staging ordered - LDH pending - Radiation oncology consult - Neurosurgery consult - f/u final biopsy results - s/p dexamethasone 10 mg IV #Pain control - Dilaudid 1 mg SC q4hr prn severe pain - Palliative care consult, appreciate assistance - Tylenol 650 mg q4hr prn #Substance use disorder - Consider BIT consult - Clonidine 0.2 mg BID #Reported hx of COPD/asthma - PFTs ordered but not yet done #Bipolar disorder - Continue Depakote #Home medications - MTV - Pantoprazole - Metoprolol, divided dosing 12.5 mg BID #Routine - Code status: Attempt Cardiopulmonary Resuscitation - Inpatient - Access: 1 PIV - Lines: n/a - Diet: Regular diet - DVT ppx: Lovenox - DPOA: Primary Emergency Contact: Jaja Palomares, [place] - Dispo: pending clinical course Cherelle Ochoa MD Internal Medicine Pager [phone] > after 7AM, pager [phone] 05/05/22 5:57 AM Associated attestation - Chema Davila MD - 05/05/2022 10:25 PM EDT Attending Attestation Please see Dr. Ochoa's note for details of the patient history of presentation and data. I have discussed, reviewed and agree with the documented History, Physical findings, Assessment and Plan of care. I have examined the patient myself and personally reviewed all studies. In addition, I certify that I am a [facility] credentialed attending provider with admitting privileges and that the patient meets or has met medical necessity to require an inpatient IPI level of care meeting a minimum of two midnights or is on the [facility] inpatient only procedure list (status C) due to: uncontrolled pain requiring titration of medications to achieve optimal effect and to minimize immediate or severe side effects 56-year-old male who is an active smoker, active drug use and recently diagnosed NSCLC who presentedwith worsening pain. It appears that imaging here has shown a left lung mass locally invading into the scalene triangle, paraspinous soft tissues, and mediastinum with concern for extension into the upper esophagus. There is also involvement of of multiple vertebra in the upper thoracic spine. There is also vascular encasement of the left vertebral artery and partial encasement of the distal left subclavian artery. Appreciate consultation from thoracic surgery, radiation oncology, hematology, neurosurgery, palliative care, and gastroenterology. GI to consider evaluation for EGD tomorrow. Radiation oncology to consider if patient is a candidatefor curative chemotherapy/radiation therapy. At the same time, palliative care is consulted for management of his pain. documented in this encounter ED Notes Anam Alatorre RN - 05/05/2022 11:52 AM EDT To inpatient bed per Transpo via bed Anam Alatorre RN - 05/05/2022 9:00 AM EDT Started drinking contrast for Abd CT at 1100. and pt instructed on when and how much to drink Elsie Hassan RN - 05/05/2022 6:33 AM EDT Medicated w/Dilaudid. Pt being medicated q 1 hr w/Dilaudid 0.5 mg IV and pain is not being controlled. Communicated w/Dr Ochoa (admitting MD) who plans to increase dosage. Pt awaiting bed availability. Neel Rosado RN - 05/05/2022 5:05 AM EDT admitting MD at bedside Neel Rosado RN - 05/05/2022 4:42 AM EDT MD asked to speak with pt and pts family... MD at bedside now Neel Rosado RN - 05/04/2022 8:02 PM EDT MD at bedside updating pt on PC and potential MRI Mulugeta Freedman MD - 05/04/2022 7:42 PM EDT Brief Attending Note I cared for the patient with the resident physician. Please see Dr. Garza's note, associated with the encounter, for more details. HPI: Carley Palomares is a 56 y.o. who presents to the ED with history of left upper lobe lung mass, recently biopsied last week, who has had acute/on explicable increase in his pain over the last 2 or 3 days.There has been no trauma. The pain is severe 9 out of 10, radiating occasionally to the left arm, not associated with numbness weakness or tingling. It is not pleuritic. He has had no fevers or chills. ROS: Pertinent positives and negatives are included in the history of present illness, otherwise 10 systems are reviewed and negative Allergies: Allergies Allergen Reactions ??? Fentanyl Nausea Only ??? Fluoxetine Other reaction(s): Other Past Medical History: Diagnosis Date ??? Asthma ??? Bipolar 1 disorder ??? COPD (chronic obstructive pulmonary disease) ??? Herniated disc ??? HTN (hypertension) Past Surgical History: Procedure Laterality Date ??? HAND SURGERY ??? HERNIA REPAIR ? ? PRO [facility] EBUS GUIDED SAMPL 3/> NODE STATION/STRUX N/A 04/29/2022 BRONCH, W ENDOBRONCHIAL ULTRASOUND (EBUS) GUIDED SAMPLING, 3+ NODES (WRVU 5.21) performed by Antonio Jeronimo MD at [facility] ??? PRO LAMINOTOMY, LUMBAR DISK, 1 INTRSP 06/17/2011 LAMINOTOMY, DECOMPRESSION, FORAMINOTOMY, LUMBAR performed by ANDI NELSON at [facility] MA[facility] OR ??? PRO NEEDLE BIOPSY LIVER 12/22/2011 LIVER BIOPSY performed by RITA ORLANDO at [facility] ??? PRO REDO EXCIS LUMBAR DISC 02/01/2013 LAMINOTOMY W\DECOMPRESSION, ONE LVL, LUMBAR ,RE-EXPL (INCLDNG PART. FACETECTOMY, FORAMINOTOMY &\OR DISCECTOMY) performed by Andi Nelson MD at [facility] MA[facility] OR Social History Tobacco Use ??? Smoking status: Current Every Day Smoker Packs/day: 1.00 Years: 40.00 Pack years: 40.00 Types: Cigarettes ??? Smokeless tobacco: Never Used ??? Tobacco comment: 6 cigs daily Substance Use Topics ??? Alcohol use: No Comment: May 02, 2011 sober date Patient Vitals for the past 8 hrs: BP Temp Temp src Pulse Resp SpO2 Weight 05/04/22 1900 (!) 169/119 -- -- 88 17 97 % -- 05/04/22 1808 155/88 -- -- 76 19 99 % -- 05/04/22 1700 (!) 160/110 -- -- 82 14 97 % -- 05/04/22 1525 (!) 139/104 -- -- -- 20 99 % -- 05/04/22 1524 -- 36.7 ??C (98 ??F) Temporal 89 20 -- 77.1 kg (169 lb 15.6 oz) Gen: mildly ill appearing, no distress Head: atraumatic, normocephalic ENT: anicteric sclera Resp: no respiratory distress CV: well perfused Abd: soft, nt Skin: warm and dry MS: No obvious deformity Neuro: speech fluent, no obvious deficit Psych: Normal mood Assessment: 56 y.o. male presenting with left-sided worsening back and chest pain, history of left upper lobe mass. We obtained CT scan which showed mass possibly invading the spinal canal. We therefore ordered an MRI although he has no motor deficits at this time, he may be a candidate for emergent radiation if it is cord threatening lesion. We did discuss the case with thoracic surgery via phone given his recent procedure/biopsy. Mulugeta Freedman MD 05/04/225 Neel Rosado RN - 05/04/2022 7:29 PM EDT Pt resting in ED cot, updated on POC, skin pink, warm, dry, call light within reach. Pt denies needsat this time Fuad Garza MD - 05/04/2022 5:04 PM EDT ED Resident Note HPI: Carley Palomares is a 56 y.o. male who presents to the Emergency Department with pain, difficulty swallowing, weight loss, and ankle swelling. Pain is located to the L axilla and L neck, has been present for the last several days. Has been coughing up blood since the end of February. Had a biopsy of L lung mass 04/29 or 04/30. Has been taking tylenol and aleve at home for pain with minimal relief. Has lost at least 20 lbs over the last 6-8 months. Has had minimal oral intake, and has been throwing up every timeafter eating. Has also been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 C s/p Tx Who is admitted for weight loss and intractable pain-- GI has been consulted for endoscopic evaluation of lung mass. Mr. Palomares was seen 1 month ago in the ER for left-sided chest pain that has been persistent for 1 year with imaging demonstrating an incidental 5.5 cm ALBERTO mass. He was referred for EBUS which was completed on 04/29/2022 with biopsies now demonstrating an adenocarcinoma Pancoast tumor T4N0. He presented to the ER on 05/04/2022 due to worsening pain and was admitted for subsequent care. Since admission he completed multiple imaging studies including CT chest, MRI cervical spine, MRI thoracic spine, MRI brain, and CT abdomen/pelvis (see full reports below). Notable highlights from a GIperspective include a large ALBERTO mass that abuts the upper esophagus with absence of the fat plane between the mass and the esophagus. Thoracic surgery was on consult recommended upper endoscopy to rule out esophageal invasion prior tostarting radiation or other intervention. Mr. Palomares reports that he has no odynophagia, dysphagia, acid reflux etc. He has never before undergone upper endoscopy or EUS. He is currently AF, HDS, and notably hypertensive. Labs include CBC notable for leukocytosis of 15.2, normal BMP, and unremarkable LFTs. ROS: 10-system ROS negative other than that noted above PAST MEDICAL HX: Past Medical History: Diagnosis Date ??? Asthma ??? Bipolar 1 disorder ??? COPD (chronic obstructive pulmonary disease) ??? Herniated disc ??? HTN (hypertension) PAST SURGICAL HX: Past Surgical History: Procedure Laterality Date ??? HAND SURGERY ??? HERNIA REPAIR ? ? PRO [facility] EBUS GUIDED SAMPL 3/> NODE STATION/STRUX N/A 04/29/2022 BRONCH, W ENDOBRONCHIAL ULTRASOUND (EBUS) GUIDED SAMPLING, 3+ NODES (WRVU 5.21) performed by Antonio Jeronimo MD at [facility] ENDOSCOPY ??? PRO LAMINOTOMY, LUMBAR DISK, 1 INTRSP 06/17/2011 LAMINOTOMY, DECOMPRESSION, FORAMINOTOMY, LUMBAR performed by ANDI NELSON at [facility] MAIN OR ??? PRO NEEDLE BIOPSY LIVER 12/22/2011 LIVER BIOPSY performed by RITA ORLANDO at [facility] ENDOSCOPY ??? PRO REDO EXCIS LUMBAR DISC 02/01/2013 LAMINOTOMY W\DECOMPRESSION, ONE LVL, LUMBAR ,RE-EXPL (INCLDNG PART. FACETECTOMY, FORAMINOTOMY &\OR DISCECTOMY) performed by Andi Nelson MD at [facility] MAIN OR PAST SOCIAL HX: Social History Socioeconomic History ??? Marital status: Spouse name: Not on file ??? Number of children: Not on file ??? Years of education: Not on file ??? Highest education level: Not on file Occupational History ??? Not on file Tobacco Use ??? Smoking status: Current Every Day Smoker Packs/day: 1.00 Years: 40.00 Pack years: 40.00 Types: Cigarettes ??? Smokeless tobacco: Never Used ??? Tobacco comment: 6 cigs daily Substance and Sexual Activity ??? Alcohol use: No Comment: May 02, 2011 sober date ??? Drug use: Yes Types: Benzodiazapines , Marijuana Comment: Current marijuana user; edibles ??? Sexual activity: Not on file Other Topics Concern ??? Not on file Social History Narrative History of drinking daily until he passed out 20 + beers plus vodka Drank like this age 17 Was sober for 14 months while incarcerated 4 DUI's Last DUI August 2009 Not currently liscenced On disability for bipolar disease lives with spouse 2 biologic children asthma and depression aged 19 and 21 has 4 kids (they have one daughter together) 1 child lives in the house Social Determinants of Health Financial Resource Strain: Low Risk ??? Difficulty of Paying Living Expenses: Not very hard Food Insecurity: Food Insecurity Present ??? Worried About Running Out of Food in the Last Year: Sometimes true ??? Ran Out of Food in the Last Year: Never true Transportation Needs: No Transportation Needs ??? Lack of Transportation (Medical): No ??? Lack of Transportation (Non-Medical): No Physical Activity: Not on file Housing Stability: High Risk ??? Unable to Pay for Housing in the Last Year: No ??? Number of Places Lived in the Last Year: 3 ??? Unstable Housing in the Last Year: No PAST FAMILY HX: Family History Problem Relation Age of Onset ??? Cancer Mother lung cancer ??? Cancer Father prostate cancer MEDICATIONS Home Meds: Medications Prior to Admission Medication Sig Dispense Refill Last Dose ??? omeprazole (PriLOSEC) 40 mg Capsule, Delayed Release(E.C.) Take 40 mg by mouth daily. 05/04/2022 at Unknown time ??? metoprolol succinate XL (Toprol-XL) 25 mg Tablet Sustained Release 24 hr Take 25 mg by mouth daily. 05/04/2022 at Unknown time ??? cloNIDine (Catapres) 0.1 mg Tablet Take 0.2 mg by mouth 2 times daily. 05/04/2022 at Unknown time ??? ibuprofen (Advil) 200 mg Tablet Take 400 mg by mouth every 6 hours as needed for Pain. 05/04/2022t Unknown time ??? naproxen sodium (ALEVE) 220 mg Capsule Take 220 mg by mouth 2 times daily as needed. 05/04/2022 at Unknown time ??? divalproex EC (Depakote) 500 mg Tablet, Delayed Release (E.C.) Take 500 mg by mouth 2 times daily. 05/04/2022 at Unknown time ??? [DISCONTINUED] omeprazole (PriLOSEC) 10 mg Capsule, Delayed Release(E.C.) Take 40 mg by mouth daily. 05/04/2022 at Unknown time ??? MULTIVITAMIN ORAL Take 1 tablet by mouth daily. 05/04/2022 at Unknown time ??? acetaminophen (TYLENOL) 325 mg tablet Take 2 tablets by mouth every 4 hours as needed for Pain. 30 tablet 05/04/2022 at Unknown time ??? albuterol (PROVENTIL HFA;VENTOLIN HFA) 90 mcg/Actuation inhaler Inhale 2 puffs into the lungs every 4 hours as needed. Use with spacer 05/05/2022 at Unknown time Current Meds: Scheduled: ??? divalproex EC 500 mg Oral BID ??? multivitamin with minerals 1 tablet Oral Daily ??? pantoprazole EC 40 mg Oral Daily ??? enoxaparin 40 mg Subcutaneous Nightly ??? metoprolol tartrate 12.5 mg Oral 2 times per day ??? cloNIDine 0.1 mg Oral BID ??? buprenorphine 300 mcg Buccal BID Followed by ??? [START ON 05/06/2022] buprenorphine-naloxone 1 mg of opiate Sublingual BID Followed by ??? [START ON 05/07/2022] buprenorphine-naloxone 2 mg of opiate Sublingual BID Followed by ??? [START ON 05/08/2022] buprenorphine-naloxone 4 mg of opiate Sublingual BID Followed by ??? [START ON 05/09/2022] buprenorphine-naloxone 4 mg of opiate Sublingual 4 Times Daily ??? senna-docusate 2 tablet Oral BID ??? gabapentin 300 mg Oral TID ??? dexAMETHasone 4 mg Oral 2 times per day ??? acetaminophen 975 mg Oral TID Drips: PRN: gadoterate meglumine, polyethylene glycoL (MIRALAX) oral powder, HYDROmorphone OR HYDROmorphone Allergies Allergen Reactions ??? Fentanyl Nausea Only ??? Fluoxetine Other reaction(s): Other OBJECTIVE Vitals: T Temp: [36.5 ??C (97.7 ??F)-36.8 ??C (98.2 ??F)] HR Heart Rate: [70-91] BP BP: (138-195)/(74-123) RR Resp: [10-20] SpO2 SpO2: [94 %-100 %] IO 05/04 07 - 05/05 07 In: 1000 [I.V.:1000] Out: - Wt Last 77.1 kg (169 lb 15.6 oz) Admit 77.1 kg Physical Exam: GEN: Awake, alert, no acute distress HEENT: sclerae anicteric, moist mucous membranes RESP: CTAB CARDIAC: RRR, normal S1/S2, no appreciable murmurs ABDOMEN: Soft, non-tender, non-distended, normoactive bowel sounds EXTREM: Warm, no edema NEURO: Grossly intact, moves all extremities SKIN: No jaundice Labs: CBC: Recent Labs 05/05/22 0705/04/22 1550 WBC 15.2* 10.4* HGB 15.0 15.9 HCT 42.5 44.1 PLATELET 292 351 MCV 88.5 88.0 RDWCV 13.0 12.7 COAG: No results for input(s): PTT, INR in the last 168 hours. CHEM: Recent Labs 05/05/22 0720 05/04/22 1550 GLUCOSE -- 102 NA 136 135 K 4.6 4.4 CL 104 101 CO2 23 23 BUN 19 20 CREATININE 0.73* 0.91 ALBUMIN 3.9 4.3 MAGNESIUM -- 0.89 CALCIUM 8.8 9.3 HEPATIC: Recent Labs 05/05/22 0720 05/04/22 1550 ALKPHOS 79 86 ALT 37 38 AST 37 36 BILITOT 0.4 0.3 INFLAMM: No results for input(s): CRP in the last 168 hours. IMAGING: Reports and images personally reviewed in eDH CT Abdomen & Pelvis w Contrast Final Result No metastatic disease identified in the abdomen and pelvis. Thank you for letting us participate in the care of this patient. If you are a health care provider and have any questions regarding this report, please contact the number below. For patients who have questions please contact the health nurse care manager that requested your imaging first. Brain wwo Contrast (Generic) Final Result No evidence of intracranial metastatic disease. No acute intracranial processes identified. I have personally reviewed the image(s) and the resident's interpretation and agree with the findings, Bishop Otto at 05/05/2022 10:31 AM Thank you for letting us participate in the care of this patient. If you are a health care provider and have any questions regarding this report, please contact the number below. For patients who have questions please contact the health nurse care manager that requested your imaging first. Cervical Spine wwo Contrast Final Result 1. Left lung apex mass extending to the scalene triangle, paraspinous soft tissues and superior mediastinum. 2. There is a involvement of the T1 and T2 vertebral bodies, the left C7-T1 through T3-T4 neural foramina and the epidural space on the left in the upper thoracic spine. 3. There is a evidence of vascular encasement of the left vertebral artery and partial encasement of the left subclavian artery. The superior margin of the mass projects along the course of the left brachial plexus. This would be better assessed with dedicated brachial plexus imaging. 4. Changes of cervical spondylosis as described. Thank you for letting us participate in the care of this patient. If you are a health care provider and have any questions regarding this report, please contact the number below. For patients who have questions please contact the health nurse care manager that requested your imaging first. Thoracic Spine wwo Contrast Final Result 1. Left lung apex mass extending to the scalene triangle, paraspinous soft tissues and superior mediastinum. 2. There is a involvement of the T1 and T2 vertebral bodies, the left C7-T1 through T3-T4 neural foramina and the epidural space on the left in the upper thoracic spine. 3. There is a evidence of vascular encasement of the left vertebral artery and partial encasement of the left subclavian artery. The superior margin of the mass projects along the course of the left brachial plexus. This would be better assessed with dedicated brachial plexus imaging. 4. Changes of cervical spondylosis as described. Thank you for letting us participate in the care of this patient. If you are a health care provider and have any questions regarding this report, please contact the number below. For patients who have questions please contact the health nurse care manager that requested your imaging first. Chest w Contrast Final Result 1. Unchanged size of left upper mediastinal [...] centrilobular emphysema. No pneumothorax or pleural effusions. Thank you for letting us participate in the care of this patient. If you are a health care provider and have any questions regarding this report, please contact the number below. For patients who have questions please contact the health nurse care manager that requested your imaging first. Chest PA & Lateral (Generic) Final Result 1. Stable left upper lobe paramediastinal mass. 2. No superimposed acute cardiopulmonary process. Thank you for letting us participate in the care of this patient. If you are a health care provider and have any questions regarding this report, please contact the number below. For patients who have questions please contact the health nurse care manager that requested your imaging first. SSMENT & PLAN: Carley Palomares is a 56-year-old male W/PMH of HTN, COPD, asthma, tobacco use, bipolar 1, ISABELLA, who was admitted for intractable pain with GI on consult to evaluate his ALBERTO adenocarcinoma. Unfortunately, given the size and location of the Pancoast tumor, imaging has demonstrated some compression of the upper esophagus and what appears to be absence of the fat plane between the mass and the esophagus. We have been asked to perform EGD to assess the lesion and are more than happy to proceed in order to guide treatment for Mr. Palomares. Additionally, we may include endoscopic ultrasound to evaluate the extent of invasion and if there is any involvement of the adventitia, muscularis, submucosa etc. Recommendations: - Please keep NPO at MN - Plan for EGD/EUS Patient reviewed with Dr. Woods. Jose Juan Baker MD PGY-5, Gastroenterology Associated attestation - Heladio Woods MD - 05/07/2022 3:40 PM EDT I have independently seen and examined the patient, and have reviewed the resident???s above note, and agree with the documented history, physical findings, and study results; my evaluation of the patient is below: I met with Mr Palomares and agree with the plan as outlined by DR Samuel Woods MD Consult Note - Andrew Ware MD - 05/05/2022 4:49 PM EDT [facility] NEUROSURGERY CONSULT NOTE ID: Carley Palomares, 56 y.o. male. : 1965 Consult Requesting Service: Internal medicine PCP: Willam Waite MD Reason for consult: Intractable pain HISTORY OF PRESENT ILLNESS: Carley Palomares is a 56 y.o. male with left upper lobe 5.5 cm mass after biopsy found to be adenocarcinoma stage IIIa recently diagnosed a few months ago, was admitted through the emergency department last night for intractable pain in his left upper extremity and weight loss. In the hospital has included an MRI C and T-spine which is worrisome for T1 and T2 vertebral body involvement, C8-T4 neural foraminal involvement, and potential C1 and T1 epidural extension. Neurosurgery was consulted for opinions on potential operative management as well as medical management for symptoms. On questioning, the patient has severe pain in the entirety of his left arm, as well as his left upper back, left neck, and left upper chest. The pain is also associated with some numbness in the same areas. He denies any weakness in his left upper extremity or other extremities. Of note, thoracic surgery has seen this patient while he has been inpatient and after reviewing his MRI have determined that his lesion is unresectable given its encasement of the left vertebral and subclavian arteries. They believe he would be amenable to chemotherapy and radiation therapy. Per medicine team, radiation oncology will see the patient tomorrow in hospital. PAST MEDICAL HISTORY: Past Medical History: Diagnosis Date ??? Asthma ??? Bipolar 1 disorder ??? COPD (chronic obstructive pulmonary disease) ??? Herniated disc ??? HTN (hypertension) PAST SURGICAL HISTORY: Past Surgical History: Procedure Laterality Date ??? HAND SURGERY ??? HERNIA REPAIR ? ? PRO [facility] EBUS GUIDED SAMPL 3/> NODE STATION/STRUX N/A 04/29/2022 BRONCH, W ENDOBRONCHIAL ULTRASOUND (EBUS) GUIDED SAMPLING, 3+ NODES (WRVU 5.21) performed by Antonio Jeronimo MD at [facility] ENDOSCOPY ??? PRO LAMINOTOMY, LUMBAR DISK, 1 INTRSP 06/17/2011 LAMINOTOMY, DECOMPRESSION, FORAMINOTOMY, LUMBAR performed by ANDI NELSON at [facility] MAIN OR ??? PRO NEEDLE BIOPSY LIVER 12/22/2011 LIVER BIOPSY performed by RITA ORLANDO at [facility] ENDOSCOPY ??? PRO REDO EXCIS LUMBAR DISC 02/01/2013 LAMINOTOMY W\DECOMPRESSION, ONE LVL, LUMBAR ,RE-EXPL (INCLDNG PART. FACETECTOMY, FORAMINOTOMY &\OR DISCECTOMY) performed by Andi Nelson MD at [facility] MAIN OR MEDICATIONS: No current facility-administered medications on file prior to encounter. Current Outpatient Medications on File Prior to Encounter Medication Sig Dispense Refill ??? omeprazole (PriLOSEC) 40 mg Capsule, Delayed Release(E.C.) Take 40 mg by mouth daily. ??? metoprolol succinate XL (Toprol-XL) 25 mg Tablet Sustained Release 24 hr Take 25 mg by mouth daily. ??? cloNIDine (Catapres) 0.1 mg Tablet Take 0.2 mg by mouth 2 times daily. ??? ibuprofen (Advil) 200 mg Tablet Take 400 mg by mouth every 6 hours as needed for Pain. ??? naproxen sodium (ALEVE) 220 mg Capsule Take 220 mg by mouth 2 times daily as needed. ??? divalproex EC (Depakote) 500 mg Tablet, Delayed Release (E.C.) Take 500 mg by mouth 2 times daily. ??? [DISCONTINUED] omeprazole (PriLOSEC) 10 mg Capsule, Delayed Release(E.C.) Take 40 mg by mouth daily. ??? MULTIVITAMIN ORAL Take 1 tablet by mouth daily. ??? acetaminophen (TYLENOL) 325 mg tablet Take 2 tablets by mouth every 4 hours as needed for Pain. 30 tablet ??? albuterol (PROVENTIL HFA;VENTOLIN HFA) 90 mcg/Actuation inhaler Inhale 2 puffs into the lungs every 4 hours as needed. Use with spacer ALLERGIES: Allergies Allergen Reactions ??? Fentanyl Nausea Only ??? Fluoxetine Other reaction(s): Other SOCIAL HISTORY: Social History Socioeconomic History ??? Marital status: Spouse name: Not on file ??? Number of children: Not on file ??? Years of education: Not on file ??? Highest education level: Not on file Occupational History ??? Not on file Tobacco Use ??? Smoking status: Current Every Day Smoker Packs/day: 1.00 Years: 40.00 Pack years: 40.00 Types: Cigarettes ??? Smokeless tobacco: Never Used ??? Tobacco comment: 6 cigs daily Substance and Sexual Activity ??? Alcohol use: No Comment: May 02, 2011 sober date ??? Drug use: Yes Types: Benzodiazapines , Marijuana Comment: Current marijuana user; edibles ??? Sexual activity: Not on file Other Topics Concern ??? Not on file Social History Narrative History of drinking daily until he passed out 20 + beers plus vodka Drank like this age 17 Was sober for 14 months while incarcerated 4 DUI's Last DUI August 2009 Not currently liscenced On disability for bipolar disease lives with spouse 2 biologic children asthma and depression aged 19 and 21 has 4 kids (they have one daughter together) 1 child lives in the house Social Determinants of Health Financial Resource Strain: Low Risk ??? Difficulty of Paying Living Expenses: Not very hard Food Insecurity: Food Insecurity Present ??? Worried About Running Out of Food in the Last Year: Sometimes true ??? Ran Out of Food in the Last Year: Never true Transportation Needs: No Transportation Needs ??? Lack of Transportation (Medical): No ??? Lack of Transportation (Non-Medical): No Physical Activity: Not on file Housing Stability: High Risk ??? Unable to Pay for Housing in the Last Year: No ??? Number of Places Lived in the Last Year: 3 ??? Unstable Housing in the Last Year: No FAMILY HISTORY: Family History Problem Relation Age of Onset ??? Cancer Mother lung cancer ??? Cancer Father prostate cancer REVIEW OF SYSTEMS: As above in HPI, otherwise non-contributory. VITAL SIGNS: Visit Vitals BP (!) 164/102 (BP Location (NBP): Right arm, Patient Position: Lying) Pulse 86 Temp 36.8 ??C (98.2 ??F) (Oral) Resp 18 Wt 77.1 kg (169 lb 15.6 oz) SpO2 95% BMI 23.71 kg/m?? PHYSICAL EXAM: General: NAD HEENT: Normocephalic Pulmonary: Nonlabored breathing Spine: Non tender Neuro Exam: Wide awake, alert, oriented x4 Conversational, speech fluent, naming & repetition intact PERRL, EOMI, VFF, FS, TML, shoulder shrug 5/5 No pronator drift MOTOR: RUE:5/5 LUE:5/5 RLE: 5/5 LLE: 5/5 Patient states left upper extremity, left neck, and left chest through the T4 distribution is numb compared to the right side. LABS: CBC: Lab Results Component Value Date/Time WBC 15.2 (H) 05/05/2022 07:20 AM HGB 15.0 05/05/2022 07:20 AM PLATELET 292 05/05/2022 07:20 AM BMP: Lab Results Component Value Date/Time NA 136 05/05/2022 07:20 AM K 4.6 05/05/2022 07:20 AM CL 104 05/05/2022 07:20 AM CO2 23 05/05/2022 07:20 AM BUN 19 05/05/2022 07:20 AM CREATININE 0.73 (L) 05/05/2022 07:20 AM Coags: No results found for: INR, PT, PTT IMAGING: MRI Cervical/Thoracic Spine: IMPRESSION 1. ??Left lung apex mass extending to the scalene triangle, paraspinous soft tissues and superior mediastinum. 2. ??There is a involvement of the T1 and T2 vertebral bodies, the left C7-T1 through T3-T4 neural foramina and the epidural space on the left in the upper thoracic spine. 3. ??There is a evidence of vascular encasement of the left vertebral artery and partial encasement of the left subclavian artery. The superior margin of the mass projects along the course of the left brachial plexus. This would be better assessed with dedicated brachial plexus imaging. 4. ??Changes of cervical spondylosis as described. ?? Imaging independently reviewed / reviewed with radiology. ASSESSMENT: 56 y.o. male with recently diagnosed left upper lobe Buddhism tumor, with biopsy and staging demonstrating adenocarcinoma stage IIIa, who was admitted to the medicine service currently after developing left upper extremity intractable pain, with MRI demonstrating tumor expansion into the C7-T1 and T3- T4 neural foramina, and potential involvement of the epidural space. Thoracic surgery has determined this lesion to be unresectable, though likely amenable to chemo and radiation therapy.Agree that surgical involvement at this time would be unlikely to improve the patient's pain. Therefore recommend: PLAN/RECS: -Dexamethasone 4 twice daily -NSAIDs and gabapentin -Radiation per radiation oncology -Patient develops further intractable pain not amenable to the above interventions, please reach back out to neurosurgery for palliative pain procedures. Case was discussed with Dr. Shirley, neurosurgery attending. Future Appointments Date Time Provider Department Center 05/06/2022 9:30 AM LABORATORY, TECH [facility] INF 3K [facility] 05/06/2022 10:30 AM Kanu Ash MD [facility] HEM ONC [facility] 05/06/2022 11:30 AM Richy Donald MD [facility] RAD OFF [facility] 05/07/2022 1:00 PM [facility] NM PET Nuc Med [facility] Rad 05/25/2022 1:30 PM PFT ROOM 2 MH PFT [facility] 05/25/2022 2:30 PM Bishop Kumari MD [facility] THOR 3K [facility] Neurosurgery Pager: [phone] Andrew Ware MD 05/05/2022 4:53 PM Clinical Documentation Improvement: Active Hospital Problems Diagnosis ??? Lung mass Resolved Hospital Problems No resolved problems to display. Consult Note - Connie Liudmila Eric, S[facility] - 05/05/2022 3:11 PM EDT Palliative Medicine Consultation NAME: Carley Palomares DATE: 05/05/2022 ATTENDING: Chema Alicea MD PCP: Willam Waite MD Hospital day: Hospital Day 0 days The Palliative Care Service is asked by Dr. Chema Alicea MD to see this patient for : Symptom Management/Decision Making: including discussion and assessment of goals of care, advance planning , etc. I have reviewed the relevant records, interviewed and examined the patient; he was accompanied by his , Ines at the time of our visit. History obtained from: X Patient X Family/Caregiver (other than or in addition to patient) X Chart review Other medical team members History of Present Illness: Carley Palomares is a 56 y.o. male from [place], [place] with h/o COPD, bipolar affective disorder, herniated disc and HTN who was recently diagnosed NSCLC with a large left pancoast tumor. He has seen Dr. Kumari (CT Surgery) and Dr. Donald (Rad Onc) and work-up was still underway with a PET scan planned for this week and visit with Dr. Ash (Oncology). He presented to the ED with uncontrolled pain in the left upper chest, back and left arm. W/u included an MRI which showed that he has a ALBERTO apex tumor that extends to the scalene triangle, paraspinous soft tissues and superior mediastinum. There is a involvement of the T1 and T2 vertebral bodies, the left C7-T1 through T3-T4 neural foramina and the epidural space on the left in the upper thoracic spine. He was evaluated by CT surgery, neurosurgery, and rad onc. All agree the best first step will be to have palliative radiation therapy for the mass. However, an upper endoscopy is planned first to assess if there is esophageal involvement before beginning radiation therapy. We are askedto assist with pain management recommendations for this patient with a very difficult to manage painsyndrome and h/o ISABELLA. Physical symptoms: Pain: 8 Pain history: Onset & Duration: months Location: Left neck into left shoulder, left anterior chest and left upper back, left axilla and down the left posterior arm to the elbow. Description: burning, some numbness, severe aching (felt severe pressure in the left chest. Feels like some one kicked him in the arm pit. Intensity: Severe: 8-9/10 Effect on function: Could not be managed at home, progressive severity and lack of effective therapeutic analgesic options Aggravating factors: Alleviating factors: none, pain meds help a short time. Prior therapies: Had been on methadone 10 mg po BID, suboxone ordered but, never filled. Used streetfentanyl due to the pain. He has a significant h/o ISABELLA with recent methamphetamine, xanax, fentanyl use. He has been on methadone recently and had a prescription for suboxone that was not filled. Per Carley, he does not have a provider willing to prescribe for him as he broke the opioid agreement with several substances on hisUDS. Carley is very open with me about his ISABELLA history and previous attempt in rehab with remissions and relapses. He has gotten relief from the hydromorphone but, it did not last long. While here has had morphine 4 mg IV X 5 with no relief, Hydromorphone 0.5 mg IV X 3 with some relief and this was increased to hydromorphone 1 mg SQ Q 4 hours prn. I talked with Carley about Palliative Care and co-morbid ISABELLA and the need for close follow up with [facility], UDS, opioid agreements, lock boxes for safety, and naloxone prescription. We discussed the use of buprenorphine for pain management and ISABELLA and he is agreeable. Constipation: 0 BM in the past 48 hours?: Yes Lack of appetite: 3 Nausea: 0 Wellbeing: Patient declined/provider unable to rate Shortness of breath: 0 Depression: Patient declined/provider unable to rate Anxiety: Patient declined/provider unable to rate Drowsiness: 0 Fatigue/tiredness: Patient declined/provider unable to rate Constitutional: general fatigue Bladder: no issues Sleep: poor Cognitive function: good Current physical function: 60% Patient/family understanding of illness and goals of care Were goals of care discussed?: No Advance Care Planning: Current code status: Attempt Cardiopulmonary Resuscitation - Inpatient Was an advance directive document completed during consult?: Completed during consult Surrogate Decision Maker: Surrogate/MDPA Identified and Documented, Ines Treatment limitations: none specified Does the patient have a completed POLST/MOLST: No POLST/COLST on file. If not, was a POLST/MOLST completed: No If neither, was the completion of a POLST/MOLST discussed: No Which additional treatment preferences have been discussed with the patient other than resuscitation?: None discussed Information and Decision Making Preferences: Ines to be his spokesperson, he often doesn't answer his phone. Psychosocial context: Was the patient of family screened for psychosocial needs?: See Catie Harrison HEMATOLOGY NURSE EDUCATOR's note from today. Who is considered the patient's primary caregiver? (If the patient does not have one, select None.If you are unsure of the patients primary caregiver, select Unknown): Spouse or partner Social History: Carley is to Ines. They do some times live apart..he goes to his daughter's house occasionally. He is currently disabled. Loss history: Recently lost his father in the last couple of years and helped care for him. This added stress to his life and he went back to using. Substance abuse history: Long frankel with alcohol and illicit drug use, previous attempts at rehab and has been on suboxone in the past. His family (brothers) are all users as well and have not supported Carley recovery. Carley wants his pain controlled and is willing to be very honest about his ISABELLA. He is agreeable to suboxone for pain management and willing to follow in our outpatient clinic. We discussed ways to keep him safe and others safe: 1. Opioid agreement 2. Frequent visits, short fills. 3. Regular UDS 4. Nalaxone script 5. Lock box at home and or daughter gives meds. 6. Suboxone for pain management. Emotional context: See Shraddha Harrison's note for today. He will need ongoing HEMATOLOGY NURSE EDUCATOR support in hospital and in clinic. Coping: Current behaviors and efficacy: Poor, using illicit drugs to cope and help with pain management as well. Spiritual Issues: Was the patient or family screened for spiritual care needs?: No H - sources of hope and meaning = O - organized cheondoism = P - personal spiritual practice = E - effect on healthcare = Allergies as of 05/04/2022 - Review Complete 05/04/2022 Allergen Reaction Noted ??? Fentanyl Nausea Only 04/06/2022 ??? Fluoxetine 04/06/2022 Medications: reviewed in eDH, relevant Palliative Care medications noted below Scheduled: ??? divalproex EC 500 mg Oral BID ??? multivitamin with minerals 1 tablet Oral Daily ??? pantoprazole EC 40 mg Oral Daily ??? enoxaparin 40 mg Subcutaneous Nightly ??? metoprolol tartrate 12.5 mg Oral 2 times per day ??? cloNIDine 0.1 mg Oral BID ??? buprenorphine 300 mcg Buccal BID Followed by ??? [START ON 05/06/2022] buprenorphine-naloxone 1 mg of opiate Sublingual BID Followed by ??? [START ON 05/07/2022] buprenorphine-naloxone 2 mg of opiate Sublingual BID Followed by ??? [START ON 05/08/2022] buprenorphine-naloxone 4 mg of opiate Sublingual BID Followed by ??? [START ON 05/09/2022] buprenorphine-naloxone 4 mg of opiate Sublingual 4 Times Daily ??? senna-docusate 2 tablet Oral BID ??? gabapentin 300 mg Oral TID ??? dexAMETHasone 4 mg Oral 2 times per day ??? acetaminophen 975 mg Oral TID Current Facility-Administered Medications Medication Dose Route Frequency ??? gadoterate meglumine (Dotarem) (0.5 mMol/mL) injection solution 0-100 mL 0- 100 mL Intravenous Once PRN ??? polyethylene glycoL (Miralax) packet 17 g 17 g Oral Daily PRN ??? HYDROmorphone (Dilaudid) tablet 4 mg 4 mg Oral Q2H PRN Or ??? HYDROmorphone (Dilaudid) (1 mg/mL) injection syringe 1 mg 1 mg Subcutaneous Q2H PRN PHYSICAL EXAMINATION Last value Range last 24 hrs Temperature Temp: 36.8 ??C (98.2 ??F) Temp: [36.5 ??C (97.7 ??F)-36.8 ??C (98.2 ??F)] Heart Rate Heart Rate: 86 Heart Rate: [70-91] Blood Pressure BP: (!) 164/102 BP: (138-195)/(74-123) Respiratory Rate Resp: 18 Resp: [10-20] SpO2 SpO2: 95 % SpO2: [94 %-100 %] Physical Exam Vitals and nursing note reviewed. Constitutional: General: He is not in acute distress. Appearance: Normal appearance. Comments: 56 year old man lying in bed. Changes positions at times. Very cooperative and pleasant, despite the pain. HENT: Head: Normocephalic and atraumatic. Eyes: General: No scleral icterus. Pulmonary: Effort: Pulmonary effort is normal. Musculoskeletal: Cervical back: Normal range of motion. Neurological: General: No focal deficit present. Mental Status: He is alert. Psychiatric: Mood and Affect: Mood normal. Behavior: Behavior normal. Thought Content: Thought content normal. Judgment: Judgment normal. Diagnostic Studies: The following studies were reviewed, relevant results noted: MRI from 05/04: IMPRESSION 1. Left lung apex mass extending to the scalene triangle, paraspinous soft tissues and superior mediastinum. 2. There is a involvement of the T1 and T2 vertebral bodies, the left C7-T1 through T3-T4 neural foramina and the epidural space on the left in the upper thoracic spine. 3. There is a evidence of vascular encasement of the left vertebral artery and partial encasement of the left subclavian artery. The superior margin of the mass projects along the course of the left brachial plexus. This would be better assessed with dedicated brachial plexus imaging. 4. Changes of cervical spondylosis as described. MRI Brain 05/05: IMPRESSION No evidence of intracranial metastatic disease. Palliative Care Assessment/Recommendations: 56 year old man with newly diagnosed large ALBERTO apex tumor extending to the scalene triangle, paraspinous soft tissues and superior mediastinum with involvement of the T1 and T2 vertebral bodies, the left C7-T1 through T3-T4 neural foramina and the epidural space on the left in the upper thoracic spine and along the brachial plexus. 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 It is nociceptive and neuropathic in nature and will require opioids and coanalgesics. He has openly discussed his ISABELLA and substance use history. He is suffering and willing to begin suboxone for pain management. He is agreeable to follow with palliative care for ongoing pain control and agrees to frequent follow-up, UDS, opioid agreement, etc. Goals of care and achievability: Not discussed, hoping for treatment for the pain, including treatment with RT. Understanding of illness and prognostic awareness: not addressed today Recommended changes to the care plan: none for now Recommendations for communication: 1. Ines is very supportive and prefers to be called as Carley does not answer his phone regularly. 2. DOPA-HC completed during this visit. Coping strategies: Currently poor using illicit drugs. Recommendations to enhance copin. Please consult BIT for ISABELLA and Peer Support. 2. Palliative Care HEMATOLOGY NURSE EDUCATOR to follow as well. Physical symptoms: Cancer related left chest, back, arm pain in the setting of a very large pancoasttumor, worry for brachial plexopathy. Recommendations for management of symptoms: 1. Please begin Initiation of Buprenorphine for patients on Opioids order set to begin micro induction of buprenorphine. 2. Change hydromorphone to a linked order: 1 mg SQ Q 2 hours prn or 4 mg po Q 2 hours prn: use oral first. 3. The Hydromorphone will be during the hospital until we can get his Buprenorphine up to the highest effective dose or 24 mg. 4. Please begin gabapentin 300 mg po TID 5. Continue decadron 4 mg po BID 6. Begin tylenol scheduled: 1000 mg po TID 7. Await Rad Onc recs as RT sooner rather than later can help with pain management. Palliative Care (Dr. Criselda Zelaya APRN) will manage his pain in our outpatient clinic and we will arrange. Goal will be to keep him on the buprenorphine for pain management and ISABELLA. I spent 80 minutes on this interaction; 60 minutes spent on: Counseling regarding pain management as outlined above. Coordination of care, including discussion with: X Nursing X Primary team X Family member(s)/child care worker(s) Palliative Care follow-up plan: Medical team Nursing team Psychosocial Support Inpatient Daily for pain management. Outpatient LIUDMILA BRUNNER APRN Palliative care team pager #[phone] Consult Note - Rima Rush [facility] - 05/05/2022 1:04 PM EDT TelePharmacy Home Medication List Update for Medication Reconciliation 05/05/22 1:05 PM Carley Palomares 1965 Allergies Allergen Reactions ??? Fentanyl Nausea Only ??? Fluoxetine Other reaction(s): Other ??? Person Interviewed: patient and spouse ??? Quality of Interview/accuracy of medication list: good ??? Sources used to compile medication list: [x] Epic medication list [x] SureScripts [] PCP/Specialist list [] Retail pharmacy [x] Patient list [] MAR [] Other ??? Changes made to home medication list: o Additions: - None o Deletions: - None o Changes: - Clonidine 0.2mg po BID - Ibuprofen 400mg po every 6 hours prn ??? Additional Notes: Updated medication list with information provided by patient and spouse. Per patient was taking ibuprofen, naproxen and tylenol at home to try and control pain. ??? Recommended changes: Avoid duplication of naproxen and ibuprofen. The home medication list is now updated to the best of my knowledge and is ready to be reconciled bythe provider. Please contact the TelePharmacy Medication Reconciliation Pharmacist at for any questions. Rima Rush RPH Consult Note - Caroline Sam MD - 05/05/2022 12:37 PM EDT Images from the original note were not included. NEW ONCOLOGY CONSULT Reason for consult: We are seeing Carley Palomares to evaluate for a newly diagnosed NSCLC. I have reviewed all available records, interviewed and examined the patient. HPI Carley Palomares is 56 y.o. active smoker with a Hx of drug use (last used fentanyl and meth less than a week ago), recently diagnosed with a 5.5 cm anterior mediastinum with biopsy (EBUS on 04/29/22) consistent with NSCLC, who presented overnight with severe 9/10 pain radiating to the left arm. He had pain for several months without relief in the outpatient setting and has continued to get worse so he proceeded to go to ED. Imaging here showed left lung apex mass extending to the scalene triangle, paraspinous soft tissues and superior mediastium with involvement of the T1 and T2 vertebral bodies, the left C7-T1 through T3-T4 neural foramina and the epidural space on the left in the upper thoracic spine. There was also vascular encasement of left vertebral artery and partial encasement of left subclavian artery. Thoracic surgery has been consulted and it was concluded that his disease is not resectable considering the vertebral body involvement and vascular encasements. Our service was contacted overnight and gave recommendations to complete to staging and have rad.Onc consulted. We are seeing him for further management and consideration of systemic therapy. ?? We met with the patient and his this afternoon at bedside. They report a 15-20 lbs weight loss over the last 6 weeks as well as dysphagia and hemoptysis. His most concerning symptom is the LUE pain, weakness as well as numbness and tingling. Outpatient Medications Marked as Taking for the 05/04/22 encounter (Hospital Encounter) Medication Sig Dispense Refill ??? metoprolol succinate XL (Toprol-XL) 25 mg Tablet Sustained Release 24 hr Take 25 mg by mouth daily. ??? cloNIDine (Catapres) 0.1 mg Tablet clonidine HCl 0.1 mg tablet TAKE 1 TABLET BY MOUTH TWICE DAILY ??? omeprazole (PriLOSEC) 10 mg Capsule, Delayed Release(E.C.) Take 40 mg by mouth daily. ??? divalproex EC (Depakote) 500 mg Tablet, Delayed Release (E.C.) Take 500 mg by mouth 2 times daily. ??? acetaminophen (TYLENOL) 325 mg tablet Take 2 tablets by mouth every 4 hours as needed for Pain. 30 tablet ??? albuterol (PROVENTIL HFA;VENTOLIN HFA) 90 mcg/Actuation inhaler Inhale 2 puffs into the lungs every 4 hours as needed. Use with spacer Past Medical History: Diagnosis Date ??? Asthma ??? Bipolar 1 disorder ??? COPD (chronic obstructive pulmonary disease) ??? Herniated disc ??? HTN (hypertension) Past Surgical History: Procedure Laterality Date ??? HAND SURGERY ??? HERNIA REPAIR ? ? PRO [facility] EBUS GUIDED SAMPL 3/> NODE STATION/STRUX N/A 04/29/2022 BRONCH, W ENDOBRONCHIAL ULTRASOUND (EBUS) GUIDED SAMPLING, 3+ NODES (WRVU 5.21) performed by Antonio Jeronimo MD at [facility] ENDOSCOPY ??? PRO LAMINOTOMY, LUMBAR DISK, 1 INTRSP 06/17/2011 LAMINOTOMY, DECOMPRESSION, FORAMINOTOMY, LUMBAR performed by ANDI NELSON at [facility] MAIN OR ??? PRO NEEDLE BIOPSY LIVER 12/22/2011 LIVER BIOPSY performed by RITA ORLANDO at [facility] ENDOSCOPY ??? PRO REDO EXCIS LUMBAR DISC 02/01/2013 LAMINOTOMY W\DECOMPRESSION, ONE LVL, LUMBAR ,RE-EXPL (INCLDNG PART. FACETECTOMY, FORAMINOTOMY &\OR DISCECTOMY) performed by Andi Nelson MD at [facility] MAIN OR Family History Problem Relation Age of Onset ??? Cancer Mother lung cancer ??? Cancer Father prostate cancer Social History Socioeconomic History ??? Marital status: Spouse name: Not on file ??? Number of children: Not on file ??? Years of education: Not on file ??? Highest education level: Not on file Occupational History ??? Not on file Tobacco Use ??? Smoking status: Current Every Day Smoker Packs/day: 1.00 Years: 40.00 Pack years: 40.00 Types: Cigarettes ??? Smokeless tobacco: Never Used ??? Tobacco comment: 6 cigs daily Substance and Sexual Activity ??? Alcohol use: No Comment: May 02, 2011 sober date ??? Drug use: Yes Types: Benzodiazapines , Marijuana Comment: Current marijuana user; edibles ??? Sexual activity: Not on file Other Topics Concern ??? Not on file Social History Narrative History of drinking daily until he passed out 20 + beers plus vodka Drank like this age 17 Was sober for 14 months while incarcerated 4 DUI's Last DUI August 2009 Not currently liscenced On disability for bipolar disease lives with spouse 2 biologic children asthma and depression aged 19 and 21 has 4 kids (they have one daughter together) 1 child lives in the house Social Determinants of Health Financial Resource Strain: Low Risk ??? Difficulty of Paying Living Expenses: Not very hard Food Insecurity: Food Insecurity Present ??? Worried About Running Out of Food in the Last Year: Sometimes true ??? Ran Out of Food in the Last Year: Never true Transportation Needs: No Transportation Needs ??? Lack of Transportation (Medical): No ??? Lack of Transportation (Non-Medical): No Physical Activity: Not on file Housing Stability: High Risk ??? Unable to Pay for Housing in the Last Year: No ??? Number of Places Lived in the Last Year: 3 ??? Unstable Housing in the Last Year: No PHYSICAL EXAM Patient Vitals for the past 24 hrs: BP Temp Temp src Pulse Resp SpO2 Weight 05/05/22 1222 (!) 158/119 36.5 ??C (97.7 ??F) Oral 77 16 100 % -- 05/05/22 1100 (!) 170/123 -- -- -- -- 97 % -- 05/05/22 1030 (!) 150/119 -- -- -- -- 96 % -- 05/05/22 1000 -- -- -- -- -- 95 % -- 05/05/22 0900 -- -- -- -- -- 96 % -- 05/05/22 0854 (!) 164/115 -- -- -- -- 98 % -- 05/05/22 0722 (!) 166/119 -- -- -- -- 94 % -- 05/05/22 0626 (!) 168/105 -- -- -- 18 98 % -- 05/05/22 0500 (!) 178/115 -- -- 78 -- 98 % -- 05/05/22 0451 (!) 195/114 -- -- 80 18 100 % -- 05/05/22 0300 (!) 158/120 -- -- 77 18 98 % -- 05/05/22 0200 (!) 161/120 -- -- 74 -- 95 % -- 05/05/22 0100 138/84 -- -- 70 18 100 % -- 05/05/22 0000 (!) 148/100 -- -- 71 16 97 % -- 05/04/22 2315 (!) 164/109 -- -- 79 10 97 % -- 05/04/22 2230 158/74 -- -- 90 13 98 % -- 05/04/221999 (!) 148/106 -- -- 91 20 96 % -- 05/04/22 1900 (!) 169/119 -- -- 88 17 97 % -- 05/04/22 1808 155/88 -- -- 76 19 99 % -- 05/04/22 1700 (!) 160/110 -- -- 82 14 97 % -- 05/04/22 1525 (!) 139/104 -- -- -- 20 99 % -- 05/04/22 1524 -- 36.7 ??C (98 ??F) Temporal 89 20 -- 77.1 kg (169 lb 15.6 oz) Body surface area is 1.97 meters squared. Wt Readings from Last 3 Encounters: 05/04/22 77.1 kg (169 lb 15.6 oz) 04/29/22 77.1 kg (170 lb) 04/21/22 77.7 kg (171 lb 6.4 oz) Constitutional: appears underweight, in NAD Eye: Normal conjuctivae HENT: normocephalic and atraumatic head, neck supple and non- tender, no lymphadenopathy appreciated. Oral mucosa moist, no mucosal abnormalities, no pharyngeal erythema Pulm: rhonchi in his L lung field; good inspiratory effort CVS: normal S1 and S2, RRR, no murmurs GI: Soft, non-tender, bowel sounds appreciated in all 4 quadrants Ext: No edema, clubbing MSK: No joint swelling, no spinal tenderness Neuro: CN2-12 grossly intact, no focal deficits Psych/ mood: Does not appear anxious or depressed, good affect DIAGNOSTICS Recent Results (from the past 24 hour(s)) Comprehensive metabolic panel (non-fasting) Result Value Ref Range Glucose Lvl 102 65 - 199 mg/dL BUN 20 10 - 20 mg/dL Creatinine 0.91 0.80 - 1.50 mg/dL Sodium 135 135 - 145 mmol/L Potassium 4.4 3.5 - 5.0 mmol/L Chloride 101 98 - 107 mmol/L CO2 23 22 - 31 mmol/L Anion Gap 11 5 - 15 mmol/L Calcium 9.3 8.5 - 10.5 mg/dL Total Protein 8.1 (H) 6.1 - 8.0 g/dL Albumin 4.3 3.2 - 5.2 g/dL AST 36 0 - 39 unit/L ALT 38 0 - 55 unit/L Alk Phos 86 40 - 130 unit/L Total Bilirubin 0.3 0.2 - 1.3 mg/dL Estimated GFR 100 >=60 mL/min/1.73 m?? Troponin Result Value Ref Range Troponin-T <0.01 0.00 - 0.00 ng/mL Hemogram Result Value Ref Range WBC 10.4 (H) 4.0 - 9.5 x10(3)/mcL RBC 5.01 4.58 - 5.54 x10(6)/mcL Hemoglobin 15.9 13.7 - 16.5 g/dL Hematocrit 44.1 40.5 - 48.5 % MCV 88.0 82.9 - 93.1 fL MCH 31.7 27.5 - 32.1 pg MCHC 36.1 (H) 32.0 - 35.7 g/dL Platelets 351 145 - 357 x10(3)/mcL RDWSD 40.7 36.0 - 45.0 fL RDWCV 12.7 11.4 - 13.8 % MPV 9.7 7.6 - 12.9 fL nRBC % Auto 0.0 % nRBC Abs Auto 0.000 0.000 - 0.000 x10(3)/mcL Differential, Automated Result Value Ref Range Neutrophils % 69.4 % Neutr Abs (ANC) 7.23 (H) 1.70 - 6.10 x10(3)/mcL Lymphocytes % 18.4 % Lymphocytes Abs 1.9 0.9 - 3.2 x10(3)/mcL Monocytes % 8.3 % Monocyte Abs 0.9 0.3 - 0.9 x10(3)/mcL Eosinophils % 3.3 % Eosinophils Abs 0.3 0.0 - 0.4 x10(3)/mcL Basophils % 0.2 % Basophils Abs 0.0 0.0 - 0.1 x10(3)/mcL Immature Gran % 0.40 % Cathy Gran Abs 0.04 0.00 - 0.04 x10(3)/mcL Magnesium Result Value Ref Range Magnesium 0.89 0.69 - 1.07 mmol/L Phosphorus Result Value Ref Range Phosphorus 3.4 2.5 - 4.5 mg/dL Hemogram Result Value Ref Range WBC 15.2 (H) 4.0 - 9.5 x10(3)/mcL RBC 4.80 4.58 - 5.54 x10(6)/mcL Hemoglobin 15.0 13.7 - 16.5 g/dL Hematocrit 42.5 40.5 - 48.5 % MCV 88.5 82.9 - 93.1 fL MCH 31.3 27.5 - 32.1 pg MCHC 35.3 32.0 - 35.7 g/dL Platelets 292 145 - 357 x10(3)/mcL RDWSD 42.2 36.0 - 45.0 fL RDWCV 13.0 11.4 - 13.8 % MPV 9.9 7.6 - 12.9 fL nRBC % Auto 0.0 % nRBC Abs Auto 0.000 0.000 - 0.000 x10(3)/mcL CMP w/fasting Glucose Result Value Ref Range Glucose Fasting 116 (H) 65 - 99 mg/dL BUN 19 10 - 20 mg/dL Creatinine 0.73 (L) 0.80 - 1.50 mg/dL Sodium 136 135 - 145 mmol/L Potassium 4.6 3.5 - 5.0 mmol/L Chloride 104 98 - 107 mmol/L CO2 23 22 - 31 mmol/L Anion Gap 9 5 - 15 mmol/L Calcium 8.8 8.5 - 10.5 mg/dL Total Protein 7.5 6.1 - 8.0 g/dL Albumin 3.9 3.2 - 5.2 g/dL AST 37 0 - 39 unit/L ALT 37 0 - 55 unit/L Alk Phos 79 40 - 130 unit/L Total Bilirubin 0.4 0.2 - 1.3 mg/dL Estimated GFR 108 >=60 mL/min/1.73 m?? Lactate Dehydrogenase Result Value Ref Range LDH 214 110 - 220 unit/L Gold Tube HOLD Result Value Ref Range Gold Hold Sample in lab. STAGING WORK UP CT Chest w/contrast on 05/04/22: 1. Unchanged size of left upper mediastinal mass/malignancy. This mass abuts the upper esophagus and there is absence of the fat plane between the mass and the esophagus. In addition there is abnormal soft tissue projecting into the left T1-T2 neural foramen and also abutting the anterior T1 and T2 vertebral bodies, concerning for potential epidural extension of tumor. 2. Increased nonspecific ground glass opacity and compressive atelectasis surrounding the mass. 3. Paraseptal and centrilobular emphysema. No pneumothorax or pleural effusions. MRI C and T spine wwo contrast on 05/04: 1. Left lung apex mass extending to the scalene triangle, paraspinous soft tissues and superior mediastinum. 2. There is a involvement of the T1 and T2 vertebral bodies, the left C7-T1 through T3-T4 neural foramina and the epidural space on the left in the upper thoracic spine. 3. There is a evidence of vascular encasement of the left vertebral artery and partial encasement of the left subclavian artery. The superior margin of the mass projects along the course of the left brachial plexus. This would be better assessed with dedicated brachial plexus imaging. 4. Changes of cervical spondylosis MRI brain wwo contrast on 05/05/22: No evidence of intracranial metastatic disease. CT A/P w contrast on 05/05/22: No metastatic disease identified in the abdomen and pelvis. ASSESSMENT and PLAN 56 y.o. M, active smoker with a Hx of drug use (last used fentanyl and meth less than a week ago), recently diagnosed with a 5.5 cm anterior mediastinum with biopsy (EBUS on 04/29/22) consistent with NSCLC, who presented overnight with severe 9/10 pain radiating to the left arm. He had pain for several months without relief in the outpatient setting and has continued to get worse so he proceeded to go to ED. Imaging here showed left lung apex mass extending to the scalene triangle, paraspinous soft tissues and superior mediastium with involvement of the T1 and T2 vertebral bodies, the left C7-T1 through T3-T4 neural foramina and the epidural space on the left in the upper thoracic spine. There was also vascular encasement of left vertebral artery and partial encasement of left subclavian artery. Thoracic surgery has been consulted and it was concluded that his disease is not resectable considering the vertebral body involvement and vascular encasements. Our service was contacted overnight and gave recommendations to complete to staging and have rad.Onc consulted. We are seeing him for further management and consideration of systemic therapy. Recommendations Patient had a staging work up including brain MRI, CT C/A/P and based on the findings he has T4N0 stage IIIA lung adenocarcinoma/Pancoast tumor. He was evaluated by thoracic surgery and he is deemed tohave unresectable disease given the extension into his vertebral bodies and vascular involvement. Standard of care would be with definitive chemoRT however it is unclear if benefits of RT outweigh potential toxicities considering the proximity of the mass to the upper esophagus. He will also need a GIevaluation to determine the extent of the esophageal involvement.We defer final decision to radiation oncology as to whether he would benefit from aggressive chemoRT vs palliative RT followed by systemic chemotherapy. In the first case scenario, we would consider weekly carbo/paclitaxel and in the latter chemo/immunotherpy with a regimen like carbo/pem/pem. In summary - GI evaluation for possible EGD/EUS to determine extent of esaphageal involvement - Rad.Onc consult to evaluate if patient could be a candidate for curative chemo/RT considering his esaphageal involvement in the field vs palliative RT for the pain - Depending on radiation onc recommendations we will plan for definitive chemoRT (with carbo/paclitaxel ) vs systemic therapy with carbo/pem/pem - Appreciate palliative care involvement with management of the pain. Patient reports significant improvement in his pain. Thank you for the consult. Patient's case was discussed with my attending Dr. Galloway and our thoracic Onc specialist, Dr. Nilsa Sam Hematology/Medical Oncology Fellow Page # [phone] 05/05/22, 12:37 PM Associated attestation - Aron Galloway MD - 05/05/2022 6:05 PM EDT I have seen and examined Mr. Palomares with Dr. Sam, and I agree with the findings and recommendations outlined in her note. 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 He is admitted with poorly controlled pain related to tumor involvement of the spine. The tumor is unresectable. Further management will depend on radiation oncology recommendations. Depending on the radiation oncology plan, we can facilitate concurrent chemotherapy during radiation, or primary systemic chemotherapy (if radiation is not recommended). Additional details as per Dr. Sam's note. Aron Galloway MD, MPH Medical Oncology Consult Note - Neel Sanders MD - 05/05/2022 11:05 AM EDT Thoracic Surgery Attending Note This is a 56 y.o. male current smoker (40 pack yr), marijuana and methamphetamine use with 5.5cm LULmass involving the mediastinum and vertebral body with biopsy proven adenocarcinoma pancoast tumor T4N0 based on imaging and EBUS (no PET/CT performed yet) who was admitted overnight to the medical service for weight loss and intractable pain. He was seen by Dr. Kumari in clinic on 04/06/22. He underwent EBUS on 04/29/22 with the above pathology and all sampled lymph nodes were negative. Overnight, his pain has improved control. He underwent the following imaging studies, which I have personally reviewed: CT Chest w/ Contrast: IMPRESSION 1. Unchanged size of left upper mediastinal [...] centrilobular emphysema. No pneumothorax or pleural effusions. MRI Cervical/Thoracic Spine: IMPRESSION 1. Left lung apex mass extending to the scalene triangle, paraspinous soft tissues and superior mediastinum. 2. There is a involvement of the T1 and T2 vertebral bodies, the left C7-T1 through T3-T4 neural foramina and the epidural space on the left in the upper thoracic spine. 3. There is a evidence of vascular encasement of the left vertebral artery and partial encasement of the left subclavian artery. The superior margin of the mass projects along the course of the left brachial plexus. This would be better assessed with dedicated brachial plexus imaging. 4. Changes of cervical spondylosis as described. MRI Brain: IMPRESSION No evidence of intracranial metastatic disease. No acute intracranial processes identified. Based on the above imaging findings, he has a T4N0 Stage IIIA adenocarcinoma pancoast tumor. I discussed the imaging findings with the patient and his . Given the multiple vertebral body involvement and the vascular involvement of the vertebral and left subclavian arteries, this represents unresectable disease. We discussed that this cancer is still treatable with definitive chemotherapy and radiation. Given the abutment and lack of a fat plan between the mass and the esophagus, he will likely need anEGD to rule out esophageal invasion prior to starting radiation therapy. We will notify the medical service of this. I have communicated the above to Dr. Donald from radiation oncology and Dr. Ash from medical oncology. Thoracic Surgery will be available for questions or concerns. Please page [phone] while in house. He does not require outpatient follow up with Dr. Kumari given the above. Neel Sanders MD 05/05/2022 Consult Note - Braulio Jackson MD - 05/05/2022 3:51 AM EDT Brief Oncology Note: Called about the patient in consultation overnight for anterior ALBERTO mass. Patient is a 56M active smoker, history of drug use, with a 5.5 cm anterior mediastinum with biopsy consistent with primary lung cancer/pancoast tumor, who presents for severe 9/10 pain radiating to the left arm. He recently had an EBUS which showed preliminary findings of NSCLC, favoring adenocarcinoma. He had pain for several months without relief in the outpatient setting and has continued to get worse so he proceeded to go to ED. Imaging showed left lung apex mass extending to the scalene triangle, paraspinous soft tissues and superior mediastium with involvement of the T1 and T2 vertebral bodies, the left C7-T1 through T3-T4 neural foramina and the epidural space on the left in the upper thoracic spine. Of note, there was also vascular encasement of left vertebral artery and partial encasement of left subclavian artery. Per the ED documentation and exam, he is not having any focal neurological deficits, cord compression symptoms. He had a total weight loss >30lbs over the last 6 months with >10lbs over the last 3.5 weeks. He has required 8mg of IV morphine, 15mg of ketorolac, 0.1mg IV dilaudid without significant relief. Recommendations Given inadequate pain control, would recommend admission to the hospital for IV pain medication and engaging in palliative care for assistance. His imaging findings are concerning for pancoast tumor involvement so we would also recommend consulting radiation oncology in the morning. We would also recommend dexamethasone 10mg x1 to be given now. We will follow up on the final lung biopsy results. Please obtain basic lab work with CBC, CMP, LDH as well as MRI brain and CT A/P to complete staging, Patient discussed with Oncology attending Dr. Galloway. Braulio Jackson MD Hematology/Oncology Fellow 05/05/22, 3:51 AM ED Triage - Corin Fountain, RN - 05/04/2022 3:23 PM EDT Diagnosed with lung cancer. Complaining of left sided pain. Has lost 10 lbs in 2 weeks. documented in this encounter Plan of Treatment Upcoming Encounters Date Type Specialty Care Team Description 07/14/2022 TH Visit (TeleHealth) Palliative Care Kian Zelaya [facility] PALLIATIVE MEDIC [place], [place] [address] (Wo rk) 07/22/2022 TH Visit (TeleHealth) Palliative Care Benoit Lei [facility] [place] [address] Criselda Zelaya [facility] [place] [address] 08/12/2022 Office Visit Cardiology Hari Summers MD [facility] [place] [address] Kit Bonilla MD [facility] [place] [address] Scheduled Orders Name Type Priority Associated Diagnoses Order S chedule EKG 12 Lead ECG STAT Altered mental status, One T micah for 1 Occurrences unspecified altered mental s tarting 05/11/2022 until status type 05/11/2022 documented as of this encounter Procedures Procedure Name Priority Date/Time Associated Diagnosis Comme nts HC VENIPUNCTURE Routine 05/12/2022 6:17 Results f or this AM EDT procedure are i n the results section. BASIC METABOLIC PANEL Routine 05/12/2022 6:17 Res ults for this (NON-FASTING) AM EDT procedure are in the results section. BLOOD GAS 2 VENOUS Routine 05/11/2022 9:06 Result s for this AM EDT procedure are i n the results section. POCT GLUCOSE Routine 05/11/2022 9:02 Results for this AM EDT procedure are i n the results section. HEMOGRAM Routine 05/11/2022 4:50 Results for this AM EDT procedure are i n the results section. DIFFERENTIAL, Routine 05/11/2022 4:50 Results for this AUTOMATED AM EDT procedure are i n the results section. HC VENIPUNCTURE Routine 05/11/2022 4:50 AM EDT COMPREHENSIVE Routine 05/11/2022 4:50 Results for this METABOLIC PANEL AM EDT procedure ar e in (NON-FASTING) the results section. HC TROPONIN T STAT 05/10/2022 10:50 Results fo r this PM EDT procedure are i n the results section. CT RAD ONC CHEST Routine 05/10/2022 12:09 Results for this INTERP ONLY PM EDT procedure are i n the results section. HC VENIPUNCTURE Routine 05/10/2022 [...] EDT procedure are in the results section. OPIOIDS CONFIRMATION Routine 05/09/2022 4:26 Resu lts for this PANEL, URINE AM EDT procedure are i n the results section. RAPID DRUG SCREEN, Routine 05/09/2022 4:26 Result s for this URINE (AKIRA REQUEST) AM EDT procedur e are in the results section. RAPID DRUG SCREEN W/ Routine 05/09/2022 4:26 Resu lts for this CONFIRMATION, URINE AM EDT procedur e are in the results section. AMPHETAMINE, URINE, Routine 05/09/2022 [...] e are in the results section. HC VENIPUNCTURE Routine 05/08/2022 8:19 Results f or this AM EDT procedure are i n the results section. BASIC METABOLIC PANEL Routine 05/08/2022 8:19 Res ults for this (NON-FASTING) AM EDT procedure are in the results section. MRI BRACHIAL PLEXUS Routine 05/07/2022 8:25 Resul ts for this LEFT WITH CONTRAST PM EDT procedure are in the results section. EKG 12-LEAD STAT 05/07/2022 2:42 QT prolongation Results f or this PM EDT procedure are i n the results section. OPIOIDS CONFIRMATION Routine 05/07/2022 10:00 Res ults for this PANEL, URINE AM EDT procedure are i n the results section. RAPID DRUG SCREEN, Routine 05/07/2022 10:00 Resul ts for this URINE (AKIRA REQUEST) AM EDT procedur e are in the results section. RAPID DRUG SCREEN W/ Routine 05/07/2022 10:00 Res ults for this CONFIRMATION, URINE AM EDT procedur e are in the results section. AMPHETAMINE, URINE, Routine 05/07/2022 10:00 Resu lts for this CONFIRMATION AM EDT procedure are i n the results section. THC (MARIJUANA), Routine 05/07/2022 10:00 Results for this URINE, CONFIRMATION AM EDT procedur e are in the results section. HC VENIPUNCTURE Routine 05/07/2022 9:45 Results f or this AM EDT procedure are i n the results section. BASIC METABOLIC PANEL Routine 05/07/2022 9:45 Res ults for this (NON-FASTING) AM EDT procedure are in the results section. POCT GLUCOSE Routine 05/06/2022 [...] n the results section. HC VENIPUNCTURE Routine 05/06/2022 6:07 Results f or this AM EDT procedure are i n the results section. BASIC METABOLIC PANEL Routine 05/06/2022 6:07 Res ults for this (NON-FASTING) AM EDT procedure are in the results section. CT ABDOMEN AND PELVIS Routine 05/05/2022 11:27 Re sults for this W CONTRAST AM EDT procedure are i n the results section. MRI BRAIN WWO CONTRAST STAT 05/05/2022 8:51 Re sults for this (GENERIC) AM EDT procedure are i n the results section. CMP W/FASTING GLUCOSE STAT [...] EDT procedure are in the results section. MRI THORACIC SPINE STAT [...] AUTO DIFF STAT 05/04/2022 3:50 PM EDT HC TROPONIN T STAT 05/04/2022 3:50 Results [...] ar e in (NON-FASTING) the results section. XR CHEST PA AND STAT 05/04/2022 3:38 Results f or this LATERAL PM EDT procedure are i n the results section. EKG 12-LEAD STAT 05/04/2022 3:36 Results for this PM EDT procedure are i n the results section. documented in this encounter Results (ABNORMAL) Basic Metabolic Panel (non-fasting) (05/12/2022 6:17 AM EDT) athologist Signature Glucose Lvl 118 65 - 199 [facility]/dL [facility] Comment: Diabetes: >=200 mg/dL plus symp toms BUN 19 10 - 20 mg/dL [facility] Creatinine 0.73 (L) 0.80 - 1.50 mg/dL [facility] Sodium 138 135 - 145 mmol/L [facility] Potassium 4.6 3.5 - 5.0 mmol/L [facility] Comment: Please note: ??Patients with WBC >100,00 0 may have falsely elevated Potassium levels. ??For accurate Potassium quantif ication in these patients send serum separator tube (gold top) for subsequent determinations. ??Contact the Clinical Chemistry Laboratory if there are any qu estions. Chloride 103 98 - 107 mmol/L [facility] CO2 26 22 - 31 mmol/L [facility] Anion Gap 9 5 - 15 mmol/L [facility] Calcium 9.1 8.5 - 10.5 mg/dL [facility] Estimated GFR 108 >=60 mL/min/1.73 m?? [facility] Comment: This patient's estimated GFR was [...] (Source) Location / / Volume Laterality Blood 05/12/2022 6:17 AM 6:29 EDT AM EDT Resulting Agency Comment Spec In Lab Valerie Wiggins MD CHEMISTRY ORDERABLES Performing Organization Address City/State/[place] [address] (ABNORMAL) Hemogram (05/12/2022 6:17 AM EDT) Analysis Performed At Patho logist Time Signature WBC 13.5 (H) 4.0 - 9.5 [facility] x10(3[facility] LAB[facility]ATORY RBC 4.39 (L) 4.58 - [facility] [place] 5.54 [facility] x10(6)/[facility] LABORATORY Hemoglobin 13.8 13.7 - [facility] [place] 16.5 g/dL [facility] Hematocrit 40.1 (L) 40.5 - [facility] [place] 48.5 % [facility] MCV 91.3 82.9 - [employer] [place] 93.1 [facility] LAB[facility]ATORY MCH 31.4 27.5 - [place] 32.1 pg [facility] MCHC 34.4 32.0 - [employer] [place] 35.7 g/dL [facility] Platelets 248 145 - 357 [facility] [employer] x10(3)/[facility]ORY RDWSD 44.3 36.0 - [employer] [place] 45.0 [facility] RDWCV 13.2 11.4 - [employer] [place] 13.8 % [facility] MPV 10.1 7.6 - 12.9 [facility]ORY nRBC % Auto 0.0 % [facility] nRBC Abs Auto 0.000 0.000 - [employer] [place] 0.000 [facility] x10(3)/[facility]ORATORY Specimen Anatomical Collection Method Collection Time Receive d Time (Source) Location / / Volume Laterality Blood 05/12/2022 6:17 AM 2 6:29 EDT AM EDT Resulting Agency Comment Spec In Lab Valerie Wiggins MD HEMATOLOGY ORDERABLES Performing Organization Address City/State/[place] [address] (ABNORMAL) BLOOD GAS 2 VENOUS (05/11/2022 9:06 AM EDT) Analysis Performed At Patho logist Time Signature pH Gen 7.43 (H) 7.32 - [facility] 7.42 [facility] pCO2 Gen 37 (L) 41 - 51 [facility]ORY pO2 Gen 57 (H) 25 - 40 [facility] HCO3 Gen 24.3 mmol/L [facility] BE Gen 0.0 mmol/L [facility] Hgb Blood Gas 13.5 (L) 13.7 - [facility] 16.5 g/dL [facility] O2HB Gen 90.6 % [facility] COHB Gen 0.4 % [facility] Comment: Nonsmokers: 0.5-1.5% COHB Smokers: Variable, but usually less than 10% Toxic: 20-30% COHB Lethal: Greater than 60% COHB METHB Gen 0.1 <=1.5 % [facility] Na Whole Blood 137 135 - 145 mmol/L [facility] K Whole Blood 3.9 3.5 - 5.0 mmol/L [facility] Comment: Please note: Patients with WBC >100,000 may have falsely elevated Potassium levels. Contact the Clinical Chemistry L aboratory if there are any questions. ICa Whole Blood 1.13 (L) 1.15 - 1.33 mmol/L [facility] Comment: Note: ??Total bilirubin higher than 20 m g/dL may lead to falsely low ionized calcium. CL Whole Blood 104 98 - 107 mmol/L [facility] Gluc Whole Bld 161 65 - 199 mg/dL [facility] Comment: Diabetes: >=200 mg/dL plus symp toms Lactate WB 2.7 (H) 0.5 - 2.2 mmol/L [facility] BGas Source Venous [facility] Specimen Anatomical Collection Method Collection Time Receive d Time (Source) Location / / Volume Laterality Blood 05/11/2022 9:06 AM 2 9:06 EDT AM EDT Belen Malagon MD CHEMISTRY ORDERABLES Performing Organization Address City/State/[place] [address] POCT Glucose (05/11/2022 9:02 AM EDT) P athologist Signature POC Glucose 186 65 - 199 [facility] mg/dL [facility] Comment: Supplemental ranges: <140 mg/dL before meals <180 mg/dL all other times of the day Specimen Anatomical Collection Method Collection Time Receive d Time (Source) Location / / Volume Laterality Blood 05/11/2022 9:02 AM 2 9:02 EDT AM EDT Belen Malagon MD POINT OF CARE TEST ORDERABLE S Performing Organization Address City/[facility]/[place] [address] (ABNORMAL) Differential, Automated (05/11/2022 4:50 AM EDT) Patholo gist Method Time Signature Neutrophils % 76.9 % [facility] Neutr Abs (ANC) 7.31 (H) 1.70 - [facility] 6.10 [facility] x10(3)/[facility] Lymphocytes % 13.0 % [facility] Lymphocytes Abs 1.2 0.9 - 3.2 [facility] x10(3)/[facility] LABORATORY Monocytes % 9.2 % [facility] Monocyte Abs 0.9 0.3 - 0.9 [facility] x10(3)/[facility] Eosinophils % 0.0 % [facility] Eosinophils Abs 0.0 0.0 - 0.4 [facility] x10(3)/[facility] Basophils % 0.2 % [facility] Basophils Abs 0.0 0.0 - 0.1 [facility] x10(3)/[facility]ORY Immature Gran % 0.70 % [facility] Comment: Immature granulocytes(IG's)percentage an d absolute count will include metamyelocytes, myelocytes, and promyelo cytes. Blood smears from CBCs yielding IG's will be scanned manually for concor dance. If this scan disagrees with the automated IG or if promyelocytes are not ed, a manual differential will be performed. Cathy Gran Abs 0.07 (H) 0.00 - 0.04 x10(3)/[facility] LABORATORY Specimen Anatomical Collection Method Collection Time Receive d Time (Source) Location / / Volume Laterality Blood 05/11/2022 4:50 AM 4:55 EDT AM EDT Resulting Agency Comment Spec In Lab John La DO HEMATOLOGY ORDERABLES Performing Organization Address City/State/ZIP Code Phon e Number [place] [id number] (ABNORMAL) Hemogram (05/11/2022 4:50 AM EDT) Analysis Performed At Patho logist Time Signature WBC 9.5 4.0 - 9.5 [facility] x10(3)/[facility] RBC 4.24 (L) 4.58 - [facility] x10(6)/[facility] Hemoglobin 13.2 (L) 13.7 - [facility]/dL [facility] Hematocrit 39.4 (L) 40.5 - [facility] 48.5 % [facility] MCV 92.9 82.9 - [facility] fL [facility] MCH 31.1 27.5 - [facility] 32.1 pg [facility] MCHC 33.5 32.0 - [facility] 35.[facility] g/dL [facility] Platelets 256 145 - 357 [facility] x10(3)/[facility] RDWSD 45.1 (H) 36.0 - [facility] 45.0 [facility] RDWCV 13.2 11.4 - [facility] 13.8 % [facility] MPV 10.2 7.6 - 12.9 [facility] LAB[facility]ATORY nRBC % Auto 0.0 % [facility] nRBC Abs Auto 0.000 0.000 - [facility] 0.000 [facility] x10(3)/[facility] LAB[facility]ATORY Specimen Anatomical Collection Method Collection Time Receive d Time (Source) Location / / Volume Laterality Blood 05/11/2022 4:50 AM 4:55 EDT AM EDT Resulting Agency Comment Spec In Lab John La DO HEMATOLOGY ORDERABLES Performing Organization Address City/State/[place] [address] (ABNORMAL) Comprehensive metabolic panel (non-fasting) (05/11/2022 4:50 AM EDT) athologist Signature Glucose Lvl 134 65 - 199 [facility] mg/dL [facility] Comment: Diabetes: >=200 mg/dL plus symp toms BUN 25 (H) 10 - 20 mg/dL [facility] Creatinine 0.86 0.80 - 1.50 mg/dL [facility] Sodium 139 135 - 145 mmol/L [facility] Potassium 4.6 3.5 - 5.0 mmol/L [facility] Comment: Please note: ??Patients with WBC >100,00 0 may have falsely elevated Potassium levels. ??For accurate Potassium quantif ication in these patients send serum separator tube (gold top) for subsequent determinations. ??Contact the Clinical Chemistry Laboratory if there are any qu estions. Chloride 103 98 - 107 mmol/L [facility] CO2 27 22 - 31 mmol/L [facility] Anion Gap 9 5 - 15 mmol/L [facility] Calcium 8.9 8.5 - 10.5 mg/dL [facility] Total Protein 6.7 6.1 - 8.0 g/dL [facility] Albumin 3.8 3.2 - 5.2 g/dL [facility] AST 35 0 - 39 unit/L [facility] ALT 47 0 - 55 unit/L [facility] Alk Phos 121 40 - 130 unit/L [facility] Total Bilirubin <0.2 (L) 0.2 - 1.3 mg/dL [facility] Estimated GFR 103 >=60 mL/min/1.73 m?? [facility] Comment: This patient's estimated GFR was [...] / Volume Laterality Blood 05/11/2022 4:50 AM 2 4:55 EDT AM EDT Resulting Agency Comment Spec In Lab Belen Malagon MD CHEMISTRY ORDERABLES Performing Organization Address City/State/[place] [address] Troponin (05/10/2022 10:50 PM EDT) P athologist Signature Troponin-T <0.01 0.00 - 0.00 [facility] ng/mL [facility] Comment: The 99th percentile for Troponin T is le ss than 0.01 ng/mL, any detectable cTnT concentration using this assay should be considered elevated. According to the third universal definit ion of myocardial infarction the following criteria with a clinical prese ntation consistent with acute myocardial ischemia meets the diagnosis for a myocardial infarction ([place]). Detection of a rise and/or fall of [...] additional sample may be indicated. Reference: Third [place] Definition of Myocardial Infarction. Journal of the [place] [employer] 2012;60:1581-98 Specimen Anatomical Collection Method Collection Time Receive d Time (Source) Location / / Volume Laterality Blood 05/10/2022 10:50 05/10/2022 PM EDT 10:53 PM EDT Resulting Agency Comment Spec In Lab Belen Malagon MD CHEMISTRY ORDERABLES Performing Organization Address City/State/ZIP Code Phon e Number [place] [phone] CT Rad Onc Chest Interp [...] who have questions please contact the health nurse care manager that requested your imaging first. ? Narrative 05/11/2022 7:39 AM EDT EXAMINATION: CT [...] the chest dated May 04, 2022. FINDINGS: Call Center Receptionist Images: Noncontributory. Pulmonary parenchyma: As was noted on recent prior CT of the chest, there [...] Lower neck: Please see separate CT of e neck interpretation. Upper abdomen: Visualized structures [...] the chest dated May 04, 2022. FINDINGS: Call Center Receptionist Images: Noncontributory. Pulmonary parenchyma: As was noted on th e recent prior CT of the chest, [...] Lower neck: Please see separate CT of e neck interpretation. Upper abdomen: Visualized structures [...] ho have questions please contact the health nurse care manager that requested your imaging first. Richy Donald MD IMG OUTSIDE INTERPRETATION O RDERABLES (ABNORMAL) Basic Metabolic Panel (non-fasting) (05/10/2022 2:52 AM EDT) P athologist Signature Glucose Lvl 163 65 - 199 [facility] mg/dL [facility] Comment: Diabetes: >=200 mg/dL plus symp toms BUN 24 (H) 10 - 20 mg/dL [facility] Creatinine 0.80 0.80 - 1.50 mg/dL [facility] Sodium 139 135 - 145 mmol/L [facility] Potassium 4.6 3.5 - 5.0 mmol/L [facility] Comment: Please note: ??Patients with WBC >100,00 0 may have falsely elevated Potassium levels. ??For accurate Potassium quantif ication in these patients send serum separator tube (gold top) for subsequent determinations. ??Contact the Clinical Chemistry Laboratory if there are any qu estions. Chloride 106 98 - 107 mmol/L [facility] CO2 26 22 - 31 mmol/L [facility] Anion Gap 7 5 - 15 mmol/L [facility] Calcium 8.5 8.5 - 10.5 mg/dL [facility] Estimated GFR 105 >=60 mL/min/1.73 m?? [facility] Comment: This patient's estimated GFR was [...] (Source) Location / / Volume Laterality Blood 05/10/2022 2:52 AM 3:02 EDT AM EDT Resulting Agency Comment Spec In Lab Valerie Wiggins MD CHEMISTRY ORDERABLES Performing Organization Address City/State/ZIP Code Phon e Number [place] [phone] (ABNORMAL) Hemogram (05/10/2022 2:52 AM EDT) Analysis Performed At Patho logist Time Signature WBC 9.3 4.0 - 9.5 [facility] RBC 4.11 (L) 4.58 - [place] 5.54 [facility] x10(6)/[facility]ATORY Hemoglobin 12.8 (L) 13.7 - [place] 16.5 g/dL [facility] Hematocrit 38.1 (L) 40.5 - [place] 48.5 % [facility] MCV 92.7 82.9 - [place] 93.1 [facility]ORATORY MCH 31.1 27.5 - [employer] [place] 32.1 pg [facility] MCHC 33.6 32.0 - [place] 35.7 g/dL [facility] Platelets 264 145 - 357 [facility] [place] x10(3)/[facility]ATORY RDWSD 45.1 (H) 36.0 - [employer] [place] 45.0 [facility]ORY RDWCV 13.3 11.4 - [place] 13.8 % [facility] MPV 10.1 7.6 - 12.9 [facility] LABORATORY nRBC % Auto 0.0 % [facility] nRBC Abs Auto 0.000 0.000 - [facility] 0.000 [facility] x10(3)/[facility] LABORATORY Specimen Anatomical Collection Method Collection Time Receive d Time (Source) Location / / Volume Laterality Blood 05/10/2022 2:52 AM 2 3:02 EDT AM EDT Resulting Agency Comment Spec In Lab Valerie Wiggins MD HEMATOLOGY ORDERABLES Performing Organization Address City/State/[place] [address] (ABNORMAL) Basic Metabolic Panel (non-fasting) (05/09/2022 5:45 AM EDT) P athologist Signature Glucose Lvl 190 65 - 199 [facility] mg/dL [facility] Comment: Diabetes: >=200 mg/dL plus symp toms BUN 23 (H) 10 - 20 mg/dL [facility] Creatinine 0.75 (L) 0.80 - 1.50 mg/dL [facility] Sodium 137 135 - 145 mmol/L [facility] Potassium 4.3 3.5 - 5.0 mmol/L [facility] Comment: Please note: ??Patients with WBC >100,00 0 may have falsely elevated Potassium levels. ??For accurate Potassium quantif ication in these patients send serum separator tube (gold top) for subsequent determinations. ??Contact the Clinical Chemistry Laboratory if there are any qu estions. Chloride 105 98 - 107 mmol/L [facility] CO2 24 22 - 31 mmol/L [facility] Anion Gap 8 5 - 15 mmol/L [facility] Calcium 8.4 (L) 8.5 - 10.5 mg/dL [facility] Estimated GFR 107 >=60 mL/min/1.73 m?? [facility] Comment: This patient's estimated GFR was [...] (Source) Location / / Volume Laterality Blood 05/09/2022 5:45 AM 6:06 EDT AM EDT Resulting Agency Comment Spec In Lab Valerie Wiggins MD CHEMISTRY ORDERABLES Performing Organization Address City/State/ZIP Code Phon e Number [place] [phone] (ABNORMAL) Hemogram (05/09/2022 5:45 AM EDT) Analysis Performed At Patho logist Time Signature WBC 8.7 4.0 - 9.5 [facility] [place] x10(3)/[facility] RBC 4.32 (L) 4.58 - [place] 5.54 [facility] x10(6)/[facility]ATORY Hemoglobin 13.6 (L) 13.7 - [place] 16.5 g/dL [facility] Hematocrit 39.9 (L) 40.5 - [place] [place] 48.5 % [facility] MCV 92.4 82.9 - [place] 93.1 [facility] MCH 31.5 27.5 - [place] 32.1 pg [facility] MCHC 34.1 32.0 - [place] [place] 35.7 g/dL [facility] Platelets 279 145 - 357 [facility] [place] x10(3)/[facility]ORY RDWSD 44.8 36.0 - [place] 45.0 [facility] RDWCV 13.2 11.4 - [place] 13.8 % [facility] MPV 10.3 7.6 - 12.9 [facility] nRBC % Auto 0.0 % [facility] nRBC Abs Auto 0.000 0.000 - [place] 0.000 [facility] x10(3)/[facility]ATORY Specimen Anatomical Collection Method Collection Time Receive d Time (Source) Location / / Volume Laterality Blood 05/09/2022 5:45 AM 6:06 EDT AM EDT Resulting Agency Comment Spec In Lab Valerie Wiggins MD HEMATOLOGY ORDERABLES Performing Organization Address City/State/[place] [address] Amphetamine, Urine Confirmation (05/09/2022 4:26 AM EDT) Component Value Ref Test Analysis Performed At [facility] Range Method Time Signature U Amphet CHRISTEN [...] and its performance characteri stics ?determined by [facility] in a manner consistent with CLIA ?requirements. This test has not been cleared or approv ed by ?the U.S. Food and Drug Administration. ?Test Performed by: ?[facility] ?[address] [place] [address] ?Aircraft Shipping Checker: Harry Angel M.D. Ph.D.; CLIA# [id number] Specimen Anatomical Collection Method Collection Time Receive d Time (Source) Location / / Volume Laterality Urine Urine / Unknown 05/09/2022 4:26 AM 2021 9:06 EDT AM EDT Resulting Agency Comment Spec In Lab Jeff Bains MD URINE ORDERABLES Performing Organization Address City/State/ZIP Code [place] [address] (ABNORMAL) Opioids Confirmation Panel, Urine (05/09/2022 4:26 AM EDT) Component Value Ref Test Analysis Performed At [facility] Range Method Time Signature Targeted [facility] Opioid Test ?Result ? Flag ??Unit ?? RefValue [facility] Panel, Urine [facility] Targeted Opioid Screen, U HOSP ITAL ??List prescribed opioids ? See medica tion list LABORATORY ? ADDITIONAL INFORMATION ------ ?Accuracy and completeness of declared medications on ?reports solely dependent on information submitted by ?client. ??Codeine ? Not Detected ? ng/mL ??Cutoff: 25 ?Tylenol 3 ??Dljumzq-0-ouai-glucuronid e ?Not Detected ? ng/mL ??Cutoff: 100 ?Metabolite of codeine ??Morphine ?Not Detected ? ng/mL ??Cutoff: 25 ?Dunia Garnett, MS Contin; Also a minor metabolite (10 %) of ?codeine and can be seen in low concentrations (<2,000 ?ng/mL) with poppy seed ingestion. ??Quclxmis-6-lkea-glucuroni de ? Not Detected ? ng/mL ??Cutoff: 100 ?Metabolite of morphine ??6-monoacetylmorphine ?Not Detected ? ng/mL ??Cutoff: 25 ?Metabolite of heroin ??Hydrocodone ? Not Detected ? ng/mL ??Cutoff: 25 ?Lortab, [place], Vicodin; Also a very minor metabolite o f ?codeine and impurity (<1%) of oxycodone. ??Norhydrocodone ?Not Detected ? ng/mL ??Cutoff: 25 ?Metabolite of hydrocodone ??Dihydrocodeine ?Not Detected ? ng/mL ??Cutoff: 25 ?Metabolite of hydrocodone ??Hydromorphone ? Not Detected ? ng/mL ??Cutoff: 25 ?Dilaudid, Exalgo; Also a metabolite of hydrocodone and a ?minor (<5%) metabolite of morphine. ??Ntebyvseslorg-8-psql-gluc uronide ?Present ? @ ?ng/mL ??Cutoff: 100 ?Metabolite of hydromorphone ??Oxycodone ? Not Detected ? ng/mL ??Cutoff: 25 ?Endocet, Percocet, Oxycontin ??Noroxycodone ?Not Detected ? ng/mL ??Cutoff: 25 ?Metabolite of oxycodone ??Oxymorphone ? Not Detected ? ng/mL ??Cutoff: 25 ?Numorphan, Opana; Also a metabolite of oxycodone. ??Uhaobedbccw-2-ipww-glucur onide ?Not Detected ? ng/mL ??Cutoff: 100 ?Metabolite of oxymorphone and/or naloxone (nornaloxone ) ??Noroxymorphone ?Not Detected ? ng/mL ??Cutoff: 25 ?Metabolite of oxymorphone and/or naloxone (nornaloxone ) ??Fentanyl ?Not Detected ? ng/mL ??Cutoff: 2 ?Actiq, Duragesic, Fentora ??Norfentanyl ? Not Detected ? ng/mL ??Cutoff: 2 ?Metabolite of fentanyl ??Meperidine ?Not Detected ? ng/mL ??Cutoff: 25 ?Demerol ??Normeperidine ? Not Detected ? ng/mL ??Cutoff: 25 ?Metabolite of meperidine ??Naloxone ?Not Detected ? ng/mL ??Cutoff: 25 ?Narcan ??Pdqzxegi-7-mnpd-glucuroni de ? Not Detected ? ng/mL ??Cutoff: [...] ? ng/mL ??Cutoff: 50 ?Metabolite of tapentadol ??Flsbddtavz-jlje-mwbmjtjop de ? Not Detected ? ng/mL ??Cutoff: 100 ?Metabolite of tapentadol ??Buprenorphine ? Not Detected ? ng/mL ??Cutoff: 5 ?Buprenex, Suboxone ??Norbuprenorphine ?Not Detected ? ng/mL ??Cutoff: 5 ?Metabolite of buprenorphine ??Norbuprenorphine glucuron alexi ?Present ? @ ?ng/mL ??Cutoff: 20 ?Metabolite of buprenorphine ??Opioid Interpretation ? SEE COMMENT S ?Test detected the presence of ?mmztpvsznsbnz-1-hvxg-glucuronide the metabolite of ?hydromorphone. Suspect use of hydromorphone within the past ?three days. ?Test detected the presence of norbuprenorphine glucuro nide ?(metabolite of buprenorphine) only. Suspect use of ?buprenorphine within the past three days. ? ADDITIONAL INFORMATION ------ ?This test was developed and its performance characteri stics ?determined by [facility] in a manner consistent with CLIA ?requirements. This test has not been cleared or approv ed by ?the U.S. Food and Drug Administration. ?Test Performed by: ?[facility] ?[address] [place] [address] ?Aircraft Shipping Checker: Harry Angel M.D. Ph.D.; CLIA# [id number] (A) Specimen Anatomical Collection Method Collection Time Receive d Time (Source) Location / / Volume Laterality Urine Urine / Unknown 05/09/2022 4:26 AM 2021 9:06 EDT AM EDT Jeff Bains MD URINE ORDERABLES Performing Organization Address City/State/[place] [address] (ABNORMAL) Rapid Drug Screen w/ Confirmation, Urine (05/09/2022 4:26 AM EDT) [facility] Method Time Signature U Barbiturates None None [facility] Screen Detected Detected [facility] Comment: The barbiturate screen detects barbitura [...] U Benzodiazepines Screen None Detected None Detected [facility] Comment: The benzodiazepines screen detects benzo [...] U Cocaine Screen None Detected None Detected [facility] Comment: The cocaine metabolites screen detects b enzoylecgonine (Cocaine Metabolite) at concentrations >150 ng/mL. A ? Presumptive Positive? result indicates that the screening result was positive but has not yet been confirmed by a highly-specific method. As with any screen, occasional false positive re sults from cross-reacting substances may occur. Not for Medico-Legal Purposes. U Methadone Metabolites None Detected None Detected [facility] Comment: The methadone metabolite screen detects EDDP (major methadone metabolite) at concentrations >100 ng/mL. A ? Presumptive Positive? result indicates that the screening result was positive but has not yet been confirmed by a highly-specific method. As with any screen, occasional false positive re sults from cross-reacting substances may occur. Not for Medico-Legal Purposes. U Opiate Screen None Detected None Detected [facility] Comment: The opiates screen detects opiates at co ncentrations >300 ng/mL. Please note that oxycodone, oxymorphone, fentanyl, tramadol, and other synthetic opioids are not detected by [facility] opiate screen. A ? Presumptive Positive? result indicates that the screening result was positive but has not yet been confirmed by a highly-specific method. As with any screen, occasional false positive re sults from cross-reacting substances may occur. Not for Medico-Legal Purposes. U Cannabinoid Screen None Detected None Detected [facility] Comment: The marijuana metabolites screen detects the THC metabolite (46-uiv-6-carboxy-delta 9-THC) at concen trations >20 ng/mL. A ? Presumptive Positive? result indicates that the screening result was positive but has not yet been confirmed by a highly-specific method. As with any screen, occasional false positive re sults from cross-reacting substances may occur. Not for Medico-Legal Purposes. U Oxycodone Screen None Detected None Detected [facility] Comment: The oxycodone screen detects oxycodone a nd oxymorphone at concentrations >100 ng/mL. A ? Presumptive Positive? result indicates that the screening result was positive but has not yet been confirmed by a highly-specific method. As with any screen, occasional false positive re sults from cross-reacting substances may occur. Not for Medico-Legal Purposes. U Buprenorphine Screen Presumptive Pos (A) None Detected [facility] Comment: The buprenorphine screen detects bupreno rphine at concentrations >5 ng/mL. A ? Presumptive Positive? result indicates that the screening result was positive but has not yet been confirmed by a highly-specific method. As with any screen, occasional false positive re sults from cross-reacting substances may occur. Not for Medico-Legal Purposes. U Fentanyl Screen None Detected None Detected [facility] Comment: The fentanyl screen detects fentanyl at concentrations >2 ng/mL. A ? Presumptive Positive? result indicates that the screening result was positive but has not yet been confirmed by a highly-specific method. As with any screen, occasional false positive re sults from cross-reacting substances may occur. Not for Medico-Legal Purposes. U Tricyclics Screen None Detected None Detected GENEVIEVE CAM [facility] Comment: The tricyclics screen detects [...] U Ethanol Screen None Detected None Detected [facility] Comment: This urine ethanol assay detect s ethanol at concentrations >/= 100 mg/L. U Amphetamines Screen Presumptive Pos (A) None Detected [facility] Comment: The amphetamine screen detects d-ampheta mine and d-methamphetamine at concentrations >300 ng/mL. A ? Presumptive Positive? result indicates that the screening result was positive but has not yet been confirmed by a highly-specific method. As with any screen, occasional false positive re sults from cross-reacting substances may occur. Not for Medico-Legal Purposes. U Adulterants Screen Suspected (A) None Detected Jaky HOWE [facility] Comment: An adulteration screen performed on [...] Urine / Unknown 05/09/2022 4:26 AM 2021 3:18 EDT PM EDT Resulting Agency Comment Spec In Lab Jeff Bains MD CHEMISTRY ORDERABLES Performing Organization Address City/State/[place] [address] Rapid Drug Screen, Urine (AKIRA Request) (05/09/2022 4:26 AM EDT) Populr Method Time Signature AKIRA Conf Yes [facility]ORY AKIRA Requested See Comment [facility] Comment: Refer to Rapid Drug Screen w/ C onfirmation, Urine for results. Specimen Anatomical Collection Method Collection Time Receive d Time (Source) Location / / Volume Laterality Urine Urine / Unknown 05/09/2022 4:26 AM 2021 3:18 EDT PM EDT Resulting Agency Comment Spec In Lab Jeff Bains MD URINE ORDERABLES Performing Organization Address City/State/[place] [address] (ABNORMAL) Rapid Drug Screen w/o Confirmation, Urine (05/09/2022 4:25 AM EDT) Populr Method Time Signature U Barbiturates None None [facility] Screen Detected [facility] Comment: The barbiturate screen detects barbitura [...] U Benzodiazepines Screen None Detected None Detected [facility] Comment: The benzodiazepines screen detects benzo [...] U Cocaine Screen None Detected None Detected [facility] Comment: The cocaine metabolites screen detects b enzoylecgonine (Cocaine Metabolite) at concentrations >150 ng/mL. A ? Presumptive Positive? result indicates that the screening result was positive but has not yet been confirmed by a highly-specific method. As with any screen, occasional false positive re sults from cross-reacting substances may occur. Not for Medico-Legal Purposes. U Methadone Metabolites None Detected None Detected [facility] Comment: The methadone metabolite screen detects EDDP (major methadone metabolite) at concentrations >100 ng/mL. A ? Presumptive Positive? result indicates that the screening result was positive but has not yet been confirmed by a highly-specific method. As with any screen, occasional false positive re sults from cross-reacting substances may occur. Not for Medico-Legal Purposes. U Opiate Screen None Detected None Detected [facility] Comment: The opiates screen detects opiates at co ncentrations >300 ng/mL. Please note that oxycodone, oxymorphone, fentanyl, tramadol, and other synthetic opioids are not detected by [facility] opiate screen. A ? Presumptive Positive? result indicates that the screening result was positive but has not yet been confirmed by a highly-specific method. As with any screen, occasional false positive re sults from cross-reacting substances may occur. Not for Medico-Legal Purposes. U Cannabinoid Screen Presumptive Pos (A) None Detected [facility] Comment: The marijuana metabolites screen detects the THC metabolite (16-ntj-3-carboxy-delta 9-THC) at concen trations >20 ng/mL. A ? Presumptive Positive? result indicates that the screening result was positive but has not yet been confirmed by a highly-specific method. As with any screen, occasional false positive re sults from cross-reacting substances may occur. Not for Medico-Legal Purposes. U Oxycodone Screen None Detected None Detected [facility] Comment: The oxycodone screen detects oxycodone a nd oxymorphone at concentrations >100 ng/mL. A ? Presumptive Positive? result indicates that the screening result was positive but has not yet been confirmed by a highly-specific method. As with any screen, occasional false positive re sults from cross-reacting substances may occur. Not for Medico-Legal Purposes. U Buprenorphine Screen Presumptive Pos (A) None Detected [facility] Comment: The buprenorphine screen detects bupreno rphine at concentrations >5 ng/mL. A ? Presumptive Positive? result indicates that the screening result was positive but has not yet been confirmed by a highly-specific method. As with any screen, occasional false positive re sults from cross-reacting substances may occur. Not for Medico-Legal Purposes. U Fentanyl Screen None Detected None Detected Jaky HOWE [facility] Comment: The fentanyl screen detects fentanyl at concentrations >2 ng/mL. A ? Presumptive Positive? result indicates that the screening result was positive but has not yet been confirmed by a highly-specific method. As with any screen, occasional false positive re sults from cross-reacting substances may occur. Not for Medico-Legal Purposes. U Tricyclics Screen None Detected None Detected GENEVIEVE CAM [facility] Comment: The tricyclics screen detects [...] U Ethanol Screen None Detected None Detected [facility] LABORATORY Comment: This urine ethanol assay detect s ethanol at concentrations >/= 100 mg/L. U Amphetamines Screen Presumptive Pos (A) None Detected [facility] LABORATORY Comment: The amphetamine screen detects d-ampheta mine and d-methamphetamine at concentrations >300 ng/mL. A ? Presumptive Positive? result indicates that the screening result was positive but has not yet been confirmed by a highly-specific method. As with any screen, occasional false positive re sults from cross-reacting substances may occur. Not for Medico-Legal Purposes. U Adulterants Screen Suspected (A) None Detected Jaky SHAHRAM [facility] LABORATORY Comment: An adulteration screen performed on [...] / Volume Laterality Urine 05/09/2022 4:25 AM 2 4:34 EDT AM EDT Resulting Agency Comment Spec In Lab Fifi Bishop MD CHEMISTRY ORDERABLES Performing Organization Address City/[facility]/[place] [address] Rapid Drug Screen, Urine (AKIRA Request) (05/09/2022 4:25 AM EDT) Patholo gist Method Time Signature AKIRA Conf No [facility] LABORATORY AKIRA Requested See Comment [facility] LABORATORY Comment: Refer to Rapid Drug Screen w/o Confirmation, Urine for results. Specimen Anatomical Collection Method Collection Time Receive d Time (Source) Location / / Volume Laterality Urine 05/09/2022 4:25 AM 2 4:34 EDT AM EDT Resulting Agency Comment Spec In Lab Belen Malagon MD URINE ORDERABLES Performing Organization Address City/[facility]/[place] [address] (ABNORMAL) Basic Metabolic Panel (non-fasting) (05/08/2022 8:19 AM EDT) P athologist Signature Glucose Lvl 123 65 - 199 [facility] mg/dL [facility] LABORATORY Comment: Diabetes: >=200 mg/dL plus symp toms BUN 24 (H) 10 - 20 mg/dL [facility] LABORATORY Creatinine 0.86 0.80 - 1.50 mg/dL [facility] LABORATORY Sodium 135 135 - 145 mmol/L [facility] LABORATORY Potassium 4.6 3.5 - 5.0 mmol/L [facility] LABORATORY Comment: Please note: ??Patients with WBC >100,00 0 may have falsely elevated Potassium levels. ??For accurate Potassium quantif ication in these patients send serum separator tube (gold top) for subsequent determinations. ??Contact the Clinical Chemistry Laboratory if there are any qu estions. Chloride 103 98 - 107 mmol/L [facility] LABORATORY CO2 25 22 - 31 mmol/L [facility] LABORATORY Anion Gap 7 5 - 15 mmol/L [facility] LABORATORY Calcium 9.1 8.5 - 10.5 mg/dL [facility] LABORATORY Estimated GFR 103 >=60 mL/min/1.73 m?? [facility] LABORATORY Comment: This patient's estimated GFR was [...] (Source) Location / / Volume Laterality Blood 05/08/2022 8:19 AM 8:45 EDT AM EDT Resulting Agency Comment Spec In Lab Valerie Wiggins MD CHEMISTRY ORDERABLES Performing Organization Address City/State/[place] [address] (ABNORMAL) Hemogram (05/08/2022 8:19 AM EDT) Analysis Performed At Patho logist Time Signature WBC 10.6 (H) 4.0 - 9.5 [facility] LABORATORY RBC 4.61 4.58 - [place] ARUN 5.54 [facility] x10(6)/[facility] LABORATORY Hemoglobin 14.4 13.7 - [facility] 16.[facility] g/dL [facility] Hematocrit 41.4 40.5 - [place] ARUN 48.5 % [facility] MCV 89.8 82.9 - [place] 93.1 fL [facility] MCH 31.2 27.5 - [place] ARUN 32.1 pg [facility] MCHC 34.8 32.0 - [place] ARUN 35.7 g/dL [facility] Platelets 287 145 - 357 [facility] x10(3)/[facility] LABORATORY RDWSD 43.3 36.0 - [place] DIAS 45.0 [facility] LABORATORY RDWCV 13.1 11.4 - [place] DIAS 13.8 % [facility] MPV 10.1 7.6 - 12.9 [facility] DIAS [facility] LABORATORY nRBC % Auto 0.0 % [facility] LABORATORY nRBC Abs Auto 0.000 0.000 - [place] DIAS 0.000 [facility] x10(3)/[facility] LABORATORY Specimen Anatomical Collection Method Collection Time Receive d Time (Source) Location / / Volume Laterality Blood 05/08/2022 8:19 AM 8:45 EDT AM EDT Resulting Agency Comment Spec In Lab Valerie Wiggins MD HEMATOLOGY ORDERABLES Performing Organization Address City/State/[place] [address] MRI Brachial Plexus w [...] who have questions please contact the health nurse care manager that requested your imaging first. ? Narrative 05/08/2022 9:32 AM EDT EXAMINATION: MRI [...] ho have questions please contact the health nurse care manager that requested your imaging first. Chema Alicea MD IMG MRI ORDERABLES EKG 12 Lead (05/07/2022 2:42 PM EDT) Component Value Ref Range Test Analysis Performed Patholog t Method Time At Signature Ventricular rate 64 BPM MUSE SYSTEM Atrial Rate 64 BPM MUSE SYSTEM P-R Interval 150 ms MUSE SYSTEM QRS Duration 106 ms MUSE SYSTEM Q-T Interval 406 ms MUSE SYSTEM QTC Calculated 418 ms MUSE SYSTEM (Bezet) Calculated P [place] 2 degrees MUSE SYSTEM Calculated R [place] 34 degrees MUSE SYSTEM Calculated T [place] 40 degrees MUSE SYSTEM INTERPRETATION Normal sinus rhythm MUSE SYSTEM Minimal voltage criteria for LVH, may be normal variant ( So kolow-Ash ) Borderline ECG When compared with ECG of 04-MAY-2022 15:36, Premature ventricular complexes are no longer Present Confirmed by MD Hai, [facility] [place] ([id number]) on 05/10/2022 9:22 :27 AM Specimen Anatomical Collection Method Collection Time Receive d Time (Source) Location / / Volume Laterality 05/07/2022 2:42 PM 9:22 EDT AM EDT Chema Alicea MD ECG ORDERABLES Performing Organization Address City/State/ZIP Code Phon e Number MUSE SYSTEM Amphetamine, Urine Confirmation (05/07/2022 10:00 AM EDT) Component Value Ref Test Analysis Performed At [facility] gist Range Method Time Signature U Amphet CH[facility]STEN Conf Test ? Result ? Flag ??Unit ?? RefValue [facility] Amphetamines Confirmation, U H OSPITAL ??Amphetamine-by LC-MS/MS ?SEE COMMENTS ? ng/mL ??Cutoff: 25 LABORATORY ?Unknown interfering substance present; unable to obtai n ?results. ??Phentermine-by LC-MS/MS ?Negative ? ng/mL ??Cutoff: 25 ??Methamphetamine-by LC-MS/ MS ?1738 ? ng/mL ??Cutoff: 25 ??Pseudoephedrine/Ephedrine -by LC-MS/MS ?Negative ? ng/mL ??Cutoff: 25 ??MDA (Ecstasy metabolite)- by LC-MS/MS ? Negative ? ng/mL ??Cutoff: 25 ??MDMA (Ecstasy)-by LC-MS/M S ? Negative ? ng/mL ??Cutoff: 25 ??Amphetamines Interpretation ?Positive. ? ADDITIONAL INFORMATION ------ ?This report is intended for use in clinical monitoring and ?management of patients. ??It is not intended for use i n ?employment-related testing. ?This test was developed and its performance characteri stics ?determined by [facility] in a manner consistent with CLIA ?requirements. This test has not been cleared or approv ed by ?the U.S. Food and Drug Administration. ?Test Performed by: ?[facility] - [place] [address] ?[address], [place] [address] ?Aircraft Shipping Checker: Harry Angel M.D. Ph.D.; [facility]# [id number] Specimen Anatomical Collection Method Collection Time Receive d Time (Source) Location / / Volume Laterality Urine 05/07/2022 10:00 05/07/2022 4:20 AM EDT PM EDT Resulting Agency Comment Spec In Lab Jeff Bains MD URINE ORDERABLES Performing Organization Address City/State/ZIP Code [place] [address] [facility] LABORATORY Drive THC (Marijuana), Urine Confirmation (05/07/2022 10:00 AM EDT) Component Value Ref Test Analysis Performed At [facility] Range Method Time Signature U THC Conf CHRISTEN Test ? Result ?Flag ??Unit ?? RefValue [facility] Carboxy-THC Confirmation, U HO SPITAL ??Carboxy-THC- by GC/MS ?17 ?ng/mL ??Cutoff: 3.0 LABORATORY ??Carboxy-THC Interpretation ? Positive. ? ADDITIONAL INFORMATION ------ ?This report is intended for use in clinical monitoring and ?management of patients. ??It is not intended for use i n ?employment-related testing. ?This test was developed and its performance characteri stics ?determined by [facility] in a manner consistent with CLIA ?requirements. This test has not been cleared or approv ed by ?the U.S. Food and Drug Administration. ?Test Performed by: ?[facility] [place] [address] [facility] ?[address] [place] [address] ?Aircraft Shipping Checker: Harry Angel M.D. Ph.D.; CLIA# [id number] Specimen Anatomical Collection Method Collection Time Receive d Time (Source) Location / / Volume Laterality Urine 05/07/2022 10:00 05/07/2022 4:20 AM EDT PM EDT Resulting Agency Comment Spec In Lab Jeff Bains MD URINE ORDERABLES Performing Organization Address City/State/[place] [address] (ABNORMAL) Opioids Confirmation Panel, Urine (05/07/2022 10:00 AM EDT) Component Value Ref Test Analysis Performed At [facility] Range Method Time Signature Targeted [facility]STEN Opioid Test ?Result ? Flag ??Unit ?? RefValue Sky Frequency Panel, Urine [facility] Targeted Opioid Screen, U HOSP ITAL ??List prescribed opioids ? See medica tion list LABORATORY ? ADDITIONAL INFORMATION ------ ?Accuracy and completeness of declared medications on ?reports solely dependent on information submitted by ?client. ??Codeine ? Not Detected ? ng/mL ??Cutoff: 25 ?Tylenol 3 ??Ztgjvol-3-yvnx-glucuronid e ?Not Detected ? ng/mL ??Cutoff: 100 ?Metabolite of codeine ??Morphine ?Not Detected ? ng/mL ??Cutoff: 25 ?Mariola, [place], MS Contin; Also a minor metabolite (10 %) of ?codeine and can be seen in low concentrations (<2,000 ?ng/mL) with poppy seed ingestion. ??Ioodrayq-3-kgqx-glucuroni de ? Not Detected ? ng/mL ??Cutoff: 100 ?Metabolite of morphine ??6-monoacetylmorphine ?Not Detected ? ng/mL ??Cutoff: 25 ?Metabolite of heroin ??Hydrocodone ? Not Detected ? ng/mL ??Cutoff: 25 ?Lortab, [place], Vicodin; Also a very minor metabolite o f ?codeine and impurity (<1%) of oxycodone. ??Norhydrocodone ?Not Detected ? ng/mL ??Cutoff: 25 ?Metabolite of hydrocodone ??Dihydrocodeine ?Not Detected ? ng/mL ??Cutoff: 25 ?Metabolite of hydrocodone ??Hydromorphone ? Present ? @ ?ng/mL ??Cutoff: 25 ?Dilaudid, Exalgo; Also a metabolite of hydrocodone and a ?minor (<5%) metabolite of morphine. ??Mosfsoesdvejy-4-enfk-gluc uronide ?Present ? @ ?ng/mL ??Cutoff: 100 ?Metabolite of hydromorphone ??Oxycodone ? Not Detected ? ng/mL ??Cutoff: 25 ?Endocet, Percocet, Oxycontin ??Noroxycodone ?Present ? @ ?ng/mL ??Cutoff: 25 ?Metabolite of oxycodone ??Oxymorphone ? Not Detected ? ng/mL ??Cutoff: 25 ?Numorphan, Opana; Also a metabolite of oxycodone. ??Lteigzhpips-6-zeqm-glucur onide ?Not Detected ? ng/mL ??Cutoff: 100 ?Metabolite of oxymorphone and/or naloxone (nornaloxone ) ??Noroxymorphone ?Not Detected ? ng/mL ??Cutoff: 25 ?Metabolite of oxymorphone and/or naloxone (nornaloxone ) ??Fentanyl ?Not Detected ? ng/mL ??Cutoff: 2 ?Actiq, Duragesic, Fentora ??Norfentanyl ? Not Detected ? ng/mL ??Cutoff: 2 ?Metabolite of fentanyl ??Meperidine ?Not Detected ? ng/mL ??Cutoff: 25 ?Demerol ??Normeperidine ? Not Detected ? ng/mL ??Cutoff: 25 ?Metabolite of meperidine ??Naloxone ?Not Detected ? ng/mL ??Cutoff: 25 ?Narcan ??Pcqlstve-0-ygzw-glucuroni de ? Not Detected ? ng/mL ??Cutoff: [...] ? ng/mL ??Cutoff: 50 ?Metabolite of tapentadol ??Helvrvhadi-mbrj-karwdiyvs de ? Not Detected ? ng/mL ??Cutoff: 100 ?Metabolite of tapentadol ??Buprenorphine ? Not Detected ? ng/mL ??Cutoff: 5 ?Buprenex, Suboxone ??Norbuprenorphine ?Not Detected ? ng/mL ??Cutoff: 5 ?Metabolite of buprenorphine ??Norbuprenorphine glucuron alexi ?Not Detected ? ng/mL ??Cutoff: 20 ?Metabolite of buprenorphine ??Opioid Interpretation ? SEE COMMENT S ?Test detected the presence of hydromorphone and one of its ?metabolites (mopidjbwnelrf-1-xeuo-glucuronide). Suspec t use ?of hydromorphone within the past three days. ?Test detected the presence of noroxycodone (metabolite of ?oxycodone) only. Suspect use of oxycodone within the p ast ?three days. ? ADDITIONAL INFORMATION ------ ?This test was developed and its performance characteri stics ?determined by [facility] in a manner consistent with CLIA ?requirements. This test has not been cleared or approv ed by ?the U.S. Food and Drug Administration. ?Test Performed by: ?[facility] ?[address] [place] [address] ?Aircraft Shipping Checker: Harry Angel M.D. Ph.D.; CLIA# [id number] (A) Specimen Anatomical Collection Method Collection Time Receive d Time (Source) Location / / Volume Laterality Urine 05/07/2022 10:00 05/07/2022 4:20 AM EDT PM EDT Jeff Bains MD URINE ORDERABLES Performing Organization Address City/State/ZIP Code [place] [address] (ABNORMAL) Rapid Drug Screen w/ Confirmation, Urine (05/07/2022 10:00 AM EDT) [facility] Method Time Signature U Barbiturates None None [facility] Screen Detected Detected [facility] LABORATORY Comment: The barbiturate screen detects barbitura [...] U Benzodiazepines Screen None Detected None Detected [facility] LABORATORY Comment: The benzodiazepines screen detects benzo [...] U Cocaine Screen None Detected None Detected [facility] LABORATORY Comment: The cocaine metabolites screen detects b enzoylecgonine (Cocaine Metabolite) at concentrations >150 ng/mL. A ? Presumptive Positive? result indicates that the screening result was positive but has not yet been confirmed by a highly-specific method. As with any screen, occasional false positive re sults from cross-reacting substances may occur. Not for Medico-Legal Purposes. U Methadone Metabolites None Detected None Detected [facility] LABORATORY Comment: The methadone metabolite screen detects EDDP (major methadone metabolite) at concentrations >100 ng/mL. A ? Presumptive Positive? result indicates that the screening result was positive but has not yet been confirmed by a highly-specific method. As with any screen, occasional false positive re sults from cross-reacting substances may occur. Not for Medico-Legal Purposes. U Opiate Screen Presumptive Pos (A) None Detected [facility] LABORATORY Comment: The opiates screen detects opiates [...] Cannabinoid Screen Presumptive Pos (A) None Detected [facility] LABORATORY Comment: The marijuana metabolites screen detects the THC metabolite (92-kfk-3-carboxy-delta 9-THC) at concen trations >20 ng/mL. A ? Presumptive Positive? result indicates that the screening result was positive but has not yet been confirmed by a highly-specific method. As with any screen, occasional false positive re sults from cross-reacting substances may occur. Not for Medico-Legal Purposes. U Oxycodone Screen None Detected None Detected [facility] LABORATORY Comment: The oxycodone screen detects oxycodone a nd oxymorphone at concentrations >100 ng/mL. A ? Presumptive Positive? result indicates that the screening result was positive but has not yet been confirmed by a highly-specific method. As with any screen, occasional false positive re sults from cross-reacting substances may occur. Not for Medico-Legal Purposes. U Buprenorphine Screen Presumptive Pos (A) None Detected [facility] LABORATORY Comment: The buprenorphine screen detects bupreno rphine at concentrations >5 ng/mL. A ? Presumptive Positive? result indicates that the screening result was positive but has not yet been confirmed by a highly-specific method. As with any screen, occasional false positive re sults from cross-reacting substances may occur. Not for Medico-Legal Purposes. U Fentanyl Screen None Detected None Detected Jaky HOWE [facility] LABORATORY Comment: The fentanyl screen detects fentanyl at concentrations >2 ng/mL. A ? Presumptive Positive? result indicates that the screening result was positive but has not yet been confirmed by a highly-specific method. As with any screen, occasional false positive re sults from cross-reacting substances may occur. Not for Medico-Legal Purposes. U Tricyclics Screen None Detected None Detected GENEVIEVE CAM [facility] LABORATORY Comment: The tricyclics screen detects [...] U Ethanol Screen None Detected None Detected [facility] LABORATORY Comment: This urine ethanol assay detect s ethanol at concentrations >/= 100 mg/L. U Amphetamines Screen Presumptive Pos (A) None Detected [facility] LABORATORY Comment: The amphetamine screen detects d-ampheta mine and d-methamphetamine at concentrations >300 ng/mL. A ? Presumptive Positive? result indicates that the screening result was positive but has not yet been confirmed by a highly-specific method. As with any screen, occasional false positive re sults from cross-reacting substances may occur. Not for Medico-Legal Purposes. U Adulterants Screen None Detected None Detected Jaky HOWE [facility] LABORATORY Comment: No adulteration or dilution of this urin e sample was detected. All urine samples submitted for urine drugs of abu se analysis are tested for creatinine concentration, pH, and for the presence of oxidants, nitrites, and chromate. Specimen Anatomical Collection Method Collection Time Receive d Time (Source) Location / / Volume Laterality Urine 05/07/2022 10:00 05/07/2022 AM EDT 10:12 AM EDT Resulting Agency Comment Spec In Lab Jeff Bains MD CHEMISTRY ORDERABLES Performing Organization Address City/[facility]/[place] [address] Rapid Drug Screen, Urine (AKIRA Request) (05/07/2022 10:00 AM EDT) Patholo gist Method Time Signature AKIRA Conf Yes [facility] LABORATORY AKIRA Requested See Comment [facility] LABORATORY Comment: Refer to Rapid Drug Screen w/ C onfirmation, Urine for results. Specimen Anatomical Collection Method Collection Time Receive d Time (Source) Location / / Volume Laterality Urine 05/07/2022 10:00 05/07/2022 AM EDT 10:12 AM EDT Resulting Agency Comment Spec In Lab Chema Alicea MD URINE ORDERABLES Performing Organization Address City/[facility]/ZIP Code Phon e Number [address] Basic Metabolic Panel (non-fasting) (05/07/2022 9:45 AM EDT) P athologist Signature Glucose Lvl 120 65 - 199 [facility] LABORAT[facility] Comment: Diabetes: >=200 mg/dL plus symp toms BUN 20 10 - 20 mg/dL [facility] LABORATORY Creatinine 0.95 0.80 - 1.50 mg/dL [facility] LABORATORY Sodium 137 135 - 145 mmol/L [facility] LABORATORY Potassium 4.6 3.5 - 5.0 mmol/L [facility] LABORATORY Comment: Please note: ??Patients with WBC >100,00 0 may have falsely elevated Potassium levels. ??For accurate Potassium quantif ication in these patients send serum separator tube (gold top) for subsequent determinations. ??Contact the Clinical Chemistry Laboratory if there are any qu estions. Chloride 100 98 - 107 mmol/L [facility] LABORATORY CO2 28 22 - 31 mmol/L [facility] LABORATORY Anion Gap 9 5 - 15 mmol/L [facility] LABORATORY Calcium 9.5 8.5 - 10.5 mg/dL [facility] LABORATORY Estimated GFR 95 >=60 mL/min/1.73 m?? [facility] LABORATORY Comment: This patient's estimated GFR was [...] (Source) Location / / Volume Laterality Blood 05/07/2022 9:45 AM 2 EDT 10:06 AM EDT Resulting Agency Comment Spec In Lab Valerie Wiggins MD CHEMISTRY ORDERABLES Performing Organization Address City/State/[place] [address] (ABNORMAL) Hemogram (05/07/2022 9:45 AM EDT) Analysis Performed At Patho logist Time Signature WBC 10.6 (H) 4.0 - 9.5 [facility] x10(3)/[facility] LABORATORY RBC 4.89 4.58 - CHRISTEN VUONGCK 5.54 [facility] x10(6)/[facility] LABORATORY Hemoglobin 15.3 13.7 - [place]RISTEN IYERARUN 16.5 g/dL [facility] LABORATORY Hematocrit 43.9 40.5 - [place]STEN DIAS 48.5 % [facility] MCV 89.8 82.9 - [facility] 93.1 [facility] LABORATORY MCH 31.3 27.5 - [place]STEN MENDEZCOCK 32.1 pg [facility] MCHC 34.9 32.0 - [facility] 35.7 g/dL [facility] Platelets 307 145 - 357 [facility] x10(3)/[facility] LABORATORY RDWSD 42.7 36.0 - [facility] 45.0 [facility] LABORATORY RDWCV 13.0 11.4 - [facility] 13.8 % [facility]ORAT[facility] MPV 9.9 7.6 - 12.9 [facility] LABORATORY nRBC % Auto 0.0 % [facility] LABORATORY nRBC Abs Auto 0.000 0.000 - [facility] 0.000 [facility] x10(3)/[facility] LABORATORY Specimen Anatomical Collection Method Collection Time Receive d Time (Source) Location / / Volume Laterality Blood 05/07/2022 9:45 AM EDT 10:06 AM EDT Resulting Agency Comment Spec In Lab Valerie Wiggins MD HEMATOLOGY ORDERABLES Performing Organization Address City/State/[place] [address] POCT Glucose (05/06/2022 10:45 AM EDT) P athologist Signature POC Glucose 125 65 - 199 [facility] mg/dL [facility] Comment: Supplemental ranges: <140 mg/dL before meals <180 mg/dL all other times of the day Specimen Anatomical Collection Method Collection Time Receive d Time (Source) Location / / Volume Laterality Blood 05/06/2022 10:45 05/06/2022 AM EDT 10:45 AM EDT Chema Alicea MD POINT OF CARE TEST ORDERABLE S Performing Organization Address City/[facility]/[place] [address] UPPER EUS-ENDOSCOPIC ULTRASOUND (05/06/2022 9:33 AM EDT) Component Value Ref Test Analysis Performed At [facility] Range Method Time Signature UPPER [facility] ENDOSCOPIC Endoscopy ULTRASOUND _ Procedure Date: 05/06/2022 9:33 AM ? Patient Name: Carley Palomares ? [facility]: [id number] ? Date of : 1965 ? Age: 56 ? Order #: [id number] ? Instrument Name: [id number] ? Procedure: ? Upper EUS Indications: ? Abnormal CT of the GI tract Providers: ? Heladio Woods, Braulio Tyler , ? Dre Myers Referring MD: ?Chema Li Medicines: ? Propofol per Anesthesia Complications: ? No [...] wa s ? introduced through the michael , and ? advanced to the second par [...] Procedure Code(s): ? --- Professional --- ? 78639, Esophagogastroduode noscopy, ? flexible, transoral; with ? [...] ? K22.2, Esophageal obstruct ion CPT copyright 2020 [employer]. All rights reserved. The codes documented in this report are preliminary and upon mohs surgeon review may be revised to meet current [...] Address City/State/ZIP Code Phon e Number [facility] (ABNORMAL) Basic Metabolic Panel (non-fasting) (05/06/2022 6:07 AM EDT) P athologist Signature Glucose Lvl 133 65 - 199 [facility] mg/dL [facility] LABORATORY Comment: Diabetes: >=200 mg/dL plus symp toms BUN 21 (H) 10 - 20 mg/dL [facility] LABORATORY Creatinine 0.80 0.80 - 1.50 mg/dL [facility] LABORATORY Sodium 133 (L) 135 - 145 mmol/L [facility] LABORATORY Potassium 4.4 3.5 - 5.0 mmol/L [facility] LABORATORY Comment: Please note: ??Patients with WBC >100,00 0 may have falsely elevated Potassium levels. ??For accurate Potassium quantif ication in these patients send serum separator tube (gold top) for subsequent determinations. ??Contact the Clinical Chemistry Laboratory if there are any qu estions. Chloride 102 98 - 107 mmol/L [facility] CO2 23 22 - 31 mmol/L [facility] Anion Gap 8 5 - 15 mmol/L [facility] Calcium 8.9 8.5 - 10.5 mg/dL [facility] Estimated GFR 105 >=60 mL/min/1.73 m?? [facility] Comment: This patient's estimated GFR was [...] (Source) Location / / Volume Laterality Blood 05/06/2022 6:07 AM 6:45 EDT AM EDT Resulting Agency Comment Spec In Lab Valerie Wiggins MD CHEMISTRY ORDERABLES Performing Organization Address City/State/[place] [address] (ABNORMAL) Hemogram (05/06/2022 6:07 AM EDT) Analysis Performed At Patho logist Time Signature WBC 11.0 (H) 4.0 - 9.5 [facility] RBC 4.64 4.58 - [place] 5.54 [facility] x10(6)/[facility] LABORATORY Hemoglobin 14.8 13.7 - [facility] g/dL [facility] Hematocrit 40.7 40.5 - [facility] 48.[facility] % [facility] MCV 87.7 82.9 - [facility] AR[place] 93.1 [facility] MCH 31.9 27.5 - [place] 32.1 pg [facility] MCHC 36.4 (H) 32.0 - [facility] AR[place] 35.7 g/dL [facility] Platelets 296 145 - 357 [facility] x10(3)/[facility]ORATORY RDWSD 41.4 36.0 - [place] 45.0 [facility] LAB[facility]ATORY RDWCV 12.9 11.4 - [facility] AR[place] 13.8 % [facility] MPV 9.9 7.6 - 12.9 [facility] AR[place] [facility] nRBC % Auto 0.0 % [facility] nRBC Abs Auto 0.000 0.000 - [facility] ARUN 0.000 [facility] x10(3)/[facility] LABORATORY Specimen Anatomical Collection Method Collection Time Receive d Time (Source) Location / / Volume Laterality Blood 05/06/2022 6:07 AM 6:45 EDT AM EDT Resulting Agency Comment Spec In Lab Valerie Wiggins MD HEMATOLOGY ORDERABLES Performing Organization Address City/[facility]/[place] [address] Abdomen & Pelvis w Contrast (05/05/2022 [...] who have questions please contact the health nurse care manager that requested your imaging first. ? Narrative 05/05/2022 1:45 PM EDT EXAMINATION: CT [...] ho have questions please contact the health nurse care manager that requested your imaging first. Valerie Wiggins MD IMG CT ORDERABLES MRI Brain wwo Contrast (Generic) (05/05/2022 8:51 AM EDT) Anatomical Region Laterality Modality Head Magnetic Resonance Specimen (Source) Anatomical Location Collection Method / Collectio n Time Received Time / Laterality Volume Impressions 05/05/2022 10:31 AM EDT No evidence of intracranial metastatic disease. No acute intracranial processes identifi ed. I have personally reviewed the image(s) and the resident's interpretation and agree with the findings, Bishop Otto at 05/05/2022 10:31 AM Thank you for letting us participate in the care of this patient. ??If you are a health care provider and have any questi ons regarding this report, please contact the number below. ??For patients who have questions please contact the health nurse care manager that requested your imaging first. ? 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 TECHNIQUE: MRI of the brain was performed before an d after the intravenous administration of 16cc Dotarem. COMPARISON: None FINDINGS: No diffusion weighted abnormalities. No acute hemorrhage, mass or mass effect . Normal enhancement pattern. Ventricles are normal in size and configuration. Ti ny scattered foci of subcortical T2 prolongation in the left hemisphere are nonspecific and favored to represent minimal microvascular ischemic disease. Normal brain morphology. No cerebellar e ctopia or crowding of the posterior fossa. Normal orbits. Major intracranial flow v oids are normal. Normal marrow signal. Extra calvarial soft tissues are normal. Fluid and mucosal thickening of the therapy administrative assistant nically deformed left maxillary sinus.. Mild dependent fluid in right anterior e thmoid air cells. Mastoid air cells are clear. Procedure Note Bishop Otto MD - 05/05/2022Formatti ng of this note might be different from the original. 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 TECHNIQUE: MRI of the brain was performed before an d after the intravenous administration of 16cc Dotarem. COMPARISON: None FINDINGS: No diffusion weighted abnormalities. No acute hemorrhage, mass or mass effect . Normal enhancement pattern. Ventricles are normal in size and configuration. Ti ny scattered foci of subcortical T2 prolongation in the left hemisphere are nonspecific and favored to represent minimal microvascular ischemic disease. Normal brain morphology. No cerebellar e ctopia or crowding of the posterior fossa. Normal orbits. Major intracranial flow v oids are normal. Normal marrow signal. Extra calvarial soft tissues are normal. Fluid and mucosal thickening of the therapy administrative assistant nically deformed left maxillary sinus.. Mild dependent fluid in right anterior e thmoid air cells. Mastoid air cells are clear. IMPRESSION No evidence of intracranial metastatic d isease. No acute intracranial processes identifi ed. I have personally reviewed the image(s) and the resident's interpretation and agree with the findings, Bishop Otto at 05/05/2022 10:31 AM Thank you for letting us participate in the care of this patient. If you are a health care provider and have any questi ons regarding this report, please contact the number below. For patients w ho have questions please contact the health nurse care manager that requested your imaging first. Valerie Wiggins MD IMG MRI ORDERABLES Gold Tube HOLD (05/05/2022 7:20 AM EDT) athologist Signature Gold Hold Sample in [facility] lab. [facility] Specimen Anatomical Collection Method Collection Time Receive d Time (Source) Location / / Volume Laterality Blood Venous Draw / 05/05/2022 7:20 AM 05/05/20 7:40 Unknown EDT AM EDT Cherelle Ochoa MD CHEMISTRY ORDERABLES Performing Organization Address City/State/[place] [address] Lactate Dehydrogenase (05/05/2022 7:20 AM EDT) athologist Signature LDH 214 110 - 220 [facility] unit/L [facility] Specimen Anatomical Collection Method Collection Time Receive d Time (Source) Location / / Volume Laterality Blood 05/05/2022 7:20 AM 7:40 EDT AM EDT Resulting Agency Comment Spec In Lab Valerie Wiggins MD CHEMISTRY ORDERABLES Performing Organization Address City/[facility]/[place] [address] (ABNORMAL) CMP w/fasting Glucose (05/05/2022 7:20 AM EDT) athologist Signature Glucose 116 (H) 65 - 99 [facility] Fasting mg/dL [facility] Comment: ?Fasting* Glucose Interpretive C riteria Normal ?65-99 mg/dL Impaired Fasting glucose ?100-125 mg/dL Consistent with Diabetes Mellitus ? >or= 126 mg/dL *Fasting is defined as no caloric intake for at least 8 hours In the absence of unequivocal hypergly cemia a plasma glucose value of >or= 126 mg/dL should be repeated on a subseq u day. Diagnosis and Classification of Diabetes Mellitus, Position Statement from the [place] [employer]. ??Diabete s Care, Volume 33, Supplement 1, Oct 2009 BUN 19 10 - 20 mg/dL [facility] Creatinine 0.73 (L) 0.80 - 1.50 mg/dL [facility] Sodium 136 135 - 145 mmol/L [facility] Potassium 4.6 3.5 - 5.0 mmol/L [facility] Comment: Please note: ??Patients with WBC >100,00 0 may have falsely elevated Potassium levels. ??For accurate Potassium quantif ication in these patients send serum separator tube (gold top) for subsequent determinations. ??Contact the Clinical Chemistry Laboratory if there are any qu estions. Chloride 104 98 - 107 mmol/L [facility] CO2 23 22 - 31 mmol/L [facility] Anion Gap 9 5 - 15 mmol/L [facility] Calcium 8.8 8.5 - 10.5 mg/dL [facility] Total Protein 7.5 6.1 - 8.0 g/dL [facility] Albumin 3.9 3.2 - 5.2 g/dL [facility] AST 37 0 - 39 unit/L [facility] ALT 37 0 - 55 unit/L [facility] Alk Phos 79 40 - 130 unit/L [facility] Total Bilirubin 0.4 0.2 - 1.3 mg/dL [facility] Estimated GFR 108 >=60 mL/min/1.73 m?? [facility] Comment: This patient's estimated GFR was [...] Organization Address City/State/[place] [address] (ABNORMAL) Hemogram (05/05/2022 7:20 AM EDT) Analysis Performed At Patho logist Time Signature WBC 15.2 (H) 4.0 - 9.5 [facility] x10(3)/[facility] LABORATORY RBC 4.80 4.58 - [facility] [place] 5.54 [facility] x10(6)/[facility] LABORATORY Hemoglobin 15.0 13.7 - [facility] [place] 16.5 g/dL [facility] Hematocrit 42.5 40.5 - [place] [place] 48.5 % [facility] MCV 88.5 82.9 - [facility] [place] 93.1 [facility] MCH 31.3 27.5 - [place] 32.1 pg [facility] MCHC 35.3 32.0 - [facility] [place] 35.7 g/dL [facility] Platelets 292 145 - 357 [facility] x10(3)/[facility]ATORY RDWSD 42.2 36.0 - [place] 45.0 [facility] RDWCV 13.0 11.4 - [facility] [place] 13.8 % [facility] MPV 9.9 7.6 - 12.9 [facility] nRBC % Auto 0.0 % [facility] nRBC Abs Auto 0.000 0.000 - [place] 0.000 [facility] x10(3)/[facility] LABORATORY Specimen Anatomical Collection Method Collection Time Receive d Time (Source) Location / / Volume Laterality Blood 05/05/2022 7:20 AM 2 7:40 EDT AM EDT Resulting Agency Comment Spec In Lab Valerie Wiggins MD HEMATOLOGY ORDERABLES Performing Organization Address City/State/ZIP Code Phon e Number [place] [id number] MRI Thoracic Spine wwo Contrast (05/04/2022 9:40 PM EDT) Anatomical Region Laterality Modality T-spine Magnetic Resonance Specimen (Source) Anatomical Location Collection Method / Collectio n Time Received Time / Laterality Volume Impressions 05/05/2022 2:48 AM EDT 1. ??Left lung apex mass extending to the scalene triangle, paraspinous soft tissues and superior mediastinum. 2. ??There is a involvement of the T1 an d T2 vertebral bodies, the left C7-T1 through T3-T4 neural foramina and the ep idural space on the left in the upper thoracic spine. 3. 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 The superior margin of the mass projects along the course of the le ft brachial plexus. This would be better assessed with dedicated brachial plexus imaging. 4. ??Changes of cervical spondylosis as described. Thank you for letting us participate in the care of this patient. ??If you are a health care provider and have any questi ons regarding this report, please contact the number below. ??For patients who have questions please contact the health nurse care manager that requested your imaging first. ? Narrative 05/05/2022 2:48 AM EDT EXAMINATION: MRI CERVICAL SPINE WWO CONTRAST, MRI THORACIC SPINE WWO CONTRAST CLINICAL HISTORY: Metastatic disease rico luation; ALBERTO mass, concern for extension into spinal canal on CT, new LUE pain an d paresthesias, eval extension of malignancy Other Pertinent Information TECHNIQUE: MRI of the cervical spine was performed before and after the intravenous administration of 15 cc Dotarem. MRI of the thoracic spine without with g adolinium. COMPARISON: CT chest 05/04/2022 FINDINGS: MRI cervical spine: There are changes of cervical spondylosis with disc space narrowing and endplate proliferative and reactive changes at C5-6 and C6-7 primarily. Vertebral bodies are normal i n height. Prevertebral soft tissues are within nor mal limits. There is anterolisthesis of C3 on C4 greater than C4-5 related to fa cet arthropathy. Craniocervical junction is normal. Cord signal morphology is normal. C3-4: Moderate central stenosis secondar y to anterolisthesis and broad-based disc extrusion which appears to contact but not deforming the cord. This is greater on the right. There is moderate right and severe left foraminal narrowing at C3-4 due to asymmetric unci cally proliferative change and anterolisthesis. C4-5: Mild overall canal stenosis second shahram to mild anterolisthesis and a mild central disc protrusion. Moderate left a nd mild right foraminal narrowing. C5-6: Mild overall canal stenosis second shahram to mild posterior disc osteophyte complex and right-sided uncinate prolife rative changes. Severe right and mild left foraminal narrowing. C6-7: Posterior disc osteophyte complex with mild canal stenosis. Mild to moderate bilateral foraminal narrowing. C7-T1: No disc protrusion or central siddhartha nosis. No right foraminal narrowing. There is abnormal signal projecting in t he left neural foramina with loss of normal fat signal on sagittal T1 sequenc e image 5 series 9 and T2 sequence image 35 series 11. There is abnormal enhancem ent projecting in the left neural foramina which appears to narrow the ner ve sheath image 47 series 13. There is a large mass projecting in the left neck which displaces the esophagus and trachea to the right. The margins of the mass are somewhat ill-defined on the postcontrast examination image 52 of series 13. The mastoid involves the left lung apex, left paraspinous soft ti ssues at the C7, T1 and T2 levels, and extends into the left scalene triangle. Thoracic spine: There is a large mass pr ojecting in the left lung apex extending into the left superior mediastinum and l eft scalene triangle and paraspinous region. There is displacement of the tra sadie and esophagus towards the right. The mass surrounds the left vertebral ar alexander and partially encases the left subclavian artery. This is best seen on axial images 7 through 16 of series 9. The mass abuts the T1 and T2 vertebral b odies anteriorly with deformity of the ventral margin of the T1 vertebral segme nt with abnormal signal consistent with the erosion of the T1 vertebral body ant eriorly and to extension into the marrow space of T1 segment. There is subtle increased signal project ing in the anterior superior endplate of T2 also suggesting some tumor involvemen t of the vertebral segment. There is abnormal enhancement projecting in the left C7-T1 foramina, the left T1-T2 foramina,, left T2-3, and left C3- 4 foramina. Abnormal enhancement and some mass effect is seen in the left epi dural space from the C7-T1 level through the T3-4 level, best appreciated on axia l images 5 through 24 of series 12. There is very mild effacement of the the tea sac on the left associated with this abnormal signal in the epidural space. The tumor extending into the foramina on the left is also well seen on sagittal T1-weighted sequence image 9 of series 6 . No cord signal abnormality seen. No cord compression. There is a small central disc extrusion at the T10-T11 level with mild effacement of the ventral thecal sac, ax ial image 31 series 13 and sagittal image 14 series 7. .. Procedure Note Armando Duvall MD - 05/05/2022Formatt ing of this note might be different from the original. EXAMINATION: MRI CERVICAL SPINE WWO CONT RAST, MRI THORACIC SPINE WWO CONTRAST CLINICAL HISTORY: Metastatic disease rico luation; ALBERTO mass, concern for extension into spinal canal on CT, new LUE pain an d paresthesias, eval extension of malignancy Other Pertinent Information TECHNIQUE: MRI of the cervical spine was performed before and after the intravenous administration of 15 cc Dotarem. MRI of the thoracic spine without with g adolinium. COMPARISON: CT chest 05/04/2022 FINDINGS: MRI cervical spine: There are changes of cervical spondylosis with disc space narrowing and endplate proliferative and reactive changes at C5-6 and C6-7 primarily. Vertebral bodies are normal i n height. Prevertebral soft tissues are within nor mal limits. There is anterolisthesis of C3 on C4 greater than C4-5 related to fa cet arthropathy. Craniocervical junction is normal. Cord signal morphology is normal. C3-4: Moderate central stenosis secondar y to anterolisthesis and broad-based disc extrusion which appears to contact but not deforming the cord. This is greater on the right. There is moderate right and severe left foraminal narrowing at C3-4 due to asymmetric unci cally proliferative change and anterolisthesis. C4-5: Mild overall canal stenosis second shahram to mild anterolisthesis and a mild central disc protrusion. Moderate left a nd mild right foraminal narrowing. C5-6: Mild overall canal stenosis second shahram to mild posterior disc osteophyte complex and right-sided uncinate prolife rative changes. Severe right and mild left foraminal narrowing. C6-7: Posterior disc osteophyte complex with mild canal stenosis. Mild to moderate bilateral foraminal narrowing. C7-T1: No disc protrusion or central siddhartha nosis. No right foraminal narrowing. There is abnormal signal projecting in t he left neural foramina with loss of normal fat signal on sagittal T1 sequenc e image 5 series 9 and T2 sequence image 35 series 11. There is abnormal enhancem ent projecting in the left neural foramina which appears to narrow the ner ve sheath image 47 series 13. There is a large mass projecting in the left neck which displaces the esophagus and trachea to the right. The margins of the mass are somewhat ill-defined on the postcontrast examination image 52 of series 13. The mastoid involves the left lung apex, left paraspinous soft ti ssues at the C7, T1 and T2 levels, and extends into the left scalene triangle. Thoracic spine: There is a large mass pr ojecting in the left lung apex extending into the left superior mediastinum and l eft scalene triangle and paraspinous region. There is displacement of the tra sadie and esophagus towards the right. The mass surrounds the left vertebral ar alexander and partially encases the left subclavian artery. This is best seen on axial images 7 through 16 of series 9. The mass abuts the T1 and T2 vertebral b odies anteriorly with deformity of the ventral margin of the T1 vertebral segme nt with abnormal signal consistent with the erosion of the T1 vertebral body ant eriorly and to extension into the marrow space of T1 segment. There is subtle increased signal project ing in the anterior superior endplate of T2 also suggesting some tumor involvemen t of the vertebral segment. There is abnormal enhancement projecting in the left C7-T1 foramina, the left T1-T2 foramina,, left T2-3, and left C3- 4 foramina. Abnormal enhancement and some mass effect is seen in the left epi dural space from the C7-T1 level through the T3-4 level, best appreciated on axia l images 5 through 24 of series 12. There is very mild effacement of the the tea sac on the left associated with this abnormal signal in the epidural space. The tumor extending into the foramina on the left is also well seen on sagittal T1-weighted sequence image 9 of series 6 . No cord signal abnormality seen. No cord compression. There is a small central disc extrusion at the T10-T11 level with mild effacement of the ventral thecal sac, ax ial image 31 series 13 and sagittal image 14 series 7. .. IMPRESSION 1. Left lung apex mass extending to the scalene triangle, paraspinous soft tissues and superior mediastinum. 2. There is a involvement of the T1 and T2 vertebral bodies, the left C7-T1 through T3-T4 neural foramina and the ep idural space on the left in the upper thoracic spine. 3. There is a evidence of vascular encas ement of the left vertebral artery and partial encasement of the left subclavia n artery. The superior margin of the mass projects along the course of the le ft brachial plexus. This would be better assessed with dedicated brachial plexus imaging. 4. Changes of cervical spondylosis as de scribed. Thank you for letting us participate in the care of this patient. If you are a health care provider and have any questi ons regarding this report, please contact the number below. For patients w ho have questions please contact the health nurse care manager that requested your imaging first. Mulugeta Freedman MD IMG MRI ORDERABLES MRI Cervical Spine wwo Contrast (05/04/2022 9:40 PM EDT) Anatomical Region Laterality Modality C-spine Magnetic Resonance Specimen (Source) Anatomical Location Collection Method / Collectio n Time Received Time / Laterality Volume Impressions 05/05/2022 2:48 AM EDT 1. ??Left lung apex mass extending to the scalene triangle, paraspinous soft tissues and superior mediastinum. 2. ??There is a involvement of the T1 an d T2 vertebral bodies, the left C7-T1 through T3-T4 neural foramina and the ep idural space on the left in the upper thoracic spine. 3. 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 The superior margin of the mass projects along the course of the le ft brachial plexus. This would be better assessed with dedicated brachial plexus imaging. 4. ??Changes of cervical spondylosis as described. Thank you for letting us participate in the care of this patient. ??If you are a health care provider and have any questi ons regarding this report, please contact the number below. ??For patients who have questions please contact the health nurse care manager that requested your imaging first. ? Narrative 05/05/2022 2:48 AM EDT EXAMINATION: MRI CERVICAL SPINE WWO CONTRAST, MRI THORACIC SPINE WWO CONTRAST CLINICAL HISTORY: Metastatic disease rico luation; ALBERTO mass, concern for extension into spinal canal on CT, new LUE pain an d paresthesias, eval extension of malignancy Other Pertinent Information TECHNIQUE: MRI of the cervical spine was performed before and after the intravenous administration of 15 cc Dotarem. MRI of the thoracic spine without with g adolinium. COMPARISON: CT chest 05/04/2022 FINDINGS: MRI cervical spine: There are changes of cervical spondylosis with disc space narrowing and endplate proliferative and reactive changes at C5-6 and C6-7 primarily. Vertebral bodies are normal i n height. Prevertebral soft tissues are within nor mal limits. There is anterolisthesis of C3 on C4 greater than C4-5 related to fa cet arthropathy. Craniocervical junction is normal. Cord signal morphology is normal. C3-4: Moderate central stenosis secondar y to anterolisthesis and broad-based disc extrusion which appears to contact but not deforming the cord. This is greater on the right. There is moderate right and severe left foraminal narrowing at C3-4 due to asymmetric unci cally proliferative change and anterolisthesis. C4-5: Mild overall canal stenosis second shahram to mild anterolisthesis and a mild central disc protrusion. Moderate left a nd mild right foraminal narrowing. C5-6: Mild overall canal stenosis second shahram to mild posterior disc osteophyte complex and right-sided uncinate prolife rative changes. Severe right and mild left foraminal narrowing. C6-7: Posterior disc osteophyte complex with mild canal stenosis. Mild to moderate bilateral foraminal narrowing. C7-T1: No disc protrusion or central siddhartha nosis. No right foraminal narrowing. There is abnormal signal projecting in t he left neural foramina with loss of normal fat signal on sagittal T1 sequenc e image 5 series 9 and T2 sequence image 35 series 11. There is abnormal enhancem ent projecting in the left neural foramina which appears to narrow the ner ve sheath image 47 series 13. There is a large mass projecting in the left neck which displaces the esophagus and trachea to the right. The margins of the mass are somewhat ill-defined on the postcontrast examination image 52 of series 13. The mastoid involves the left lung apex, left paraspinous soft ti ssues at the C7, T1 and T2 levels, and extends into the left scalene triangle. Thoracic spine: There is a large mass pr ojecting in the left lung apex extending into the left superior mediastinum and l eft scalene triangle and paraspinous region. There is displacement of the tra sadie and esophagus towards the right. The mass surrounds the left vertebral ar alexander and partially encases the left subclavian artery. This is best seen on axial images 7 through 16 of series 9. The mass abuts the T1 and T2 vertebral b odies anteriorly with deformity of the ventral margin of the T1 vertebral segme nt with abnormal signal consistent with the erosion of the T1 vertebral body ant eriorly and to extension into the marrow space of T1 segment. There is subtle increased signal project ing in the anterior superior endplate of T2 also suggesting some tumor involvemen t of the vertebral segment. There is abnormal enhancement projecting in the left C7-T1 foramina, the left T1-T2 foramina,, left T2-3, and left C3- 4 foramina. Abnormal enhancement and some mass effect is seen in the left epi dural space from the C7-T1 level through the T3-4 level, best appreciated on axia l images 5 through 24 of series 12. There is very mild effacement of the the tea sac on the left associated with this abnormal signal in the epidural space. The tumor extending into the foramina on the left is also well seen on sagittal T1-weighted sequence image 9 of series 6 . No cord signal abnormality seen. No cord compression. There is a small central disc extrusion at the T10-T11 level with mild effacement of the ventral thecal sac, ax ial image 31 series 13 and sagittal image 14 series 7. .. Procedure Note Armando Duvall MD - 05/05/2022Formatt ing of this note might be different from the original. EXAMINATION: MRI CERVICAL SPINE WWO CONT RAST, MRI THORACIC SPINE WWO CONTRAST CLINICAL HISTORY: Metastatic disease rico luation; ALBERTO mass, concern for extension into spinal canal on CT, new LUE pain an d paresthesias, eval extension of malignancy Other Pertinent Information TECHNIQUE: MRI of the cervical spine was performed before and after the intravenous administration of 15 cc Dotarem. MRI of the thoracic spine without with g adolinium. COMPARISON: CT chest 05/04/2022 FINDINGS: MRI cervical spine: There are changes of cervical spondylosis with disc space narrowing and endplate proliferative and reactive changes at C5-6 and C6-7 primarily. Vertebral bodies are normal i n height. Prevertebral soft tissues are within nor mal limits. There is anterolisthesis of C3 on C4 greater than C4-5 related to fa cet arthropathy. Craniocervical junction is normal. Cord signal morphology is normal. C3-4: Moderate central stenosis secondar y to anterolisthesis and broad-based disc extrusion which appears to contact but not deforming the cord. This is greater on the right. There is moderate right and severe left foraminal narrowing at C3-4 due to asymmetric unci cally proliferative change and anterolisthesis. C4-5: Mild overall canal stenosis second shahram to mild anterolisthesis and a mild central disc protrusion. Moderate left a nd mild right foraminal narrowing. C5-6: Mild overall canal stenosis second shahram to mild posterior disc osteophyte complex and right-sided uncinate prolife rative changes. Severe right and mild left foraminal narrowing. C6-7: Posterior disc osteophyte complex with mild canal stenosis. Mild to moderate bilateral foraminal narrowing. C7-T1: No disc protrusion or central siddhartha nosis. No right foraminal narrowing. There is abnormal signal projecting in t he left neural foramina with loss of normal fat signal on sagittal T1 sequenc e image 5 series 9 and T2 sequence image 35 series 11. There is abnormal enhancem ent projecting in the left neural foramina which appears to narrow the ner ve sheath image 47 series 13. There is a large mass projecting in the left neck which displaces the esophagus and trachea to the right. The margins of the mass are somewhat ill-defined on the postcontrast examination image 52 of series 13. The mastoid involves the left lung apex, left paraspinous soft ti ssues at the C7, T1 and T2 levels, and extends into the left scalene triangle. Thoracic spine: There is a large mass pr ojecting in the left lung apex extending into the left superior mediastinum and l eft scalene triangle and paraspinous region. There is displacement of the tra sadie and esophagus towards the right. The mass surrounds the left vertebral ar alexander and partially encases the left subclavian artery. This is best seen on axial images 7 through 16 of series 9. The mass abuts the T1 and T2 vertebral b odies anteriorly with deformity of the ventral margin of the T1 vertebral segme nt with abnormal signal consistent with the erosion of the T1 vertebral body ant eriorly and to extension into the marrow space of T1 segment. There is subtle increased signal project ing in the anterior superior endplate of T2 also suggesting some tumor involvemen t of the vertebral segment. There is abnormal enhancement projecting in the left C7-T1 foramina, the left T1-T2 foramina,, left T2-3, and left C3- 4 foramina. Abnormal enhancement and some mass effect is seen in the left epi dural space from the C7-T1 level through the T3-4 level, best appreciated on axia l images 5 through 24 of series 12. There is very mild effacement of the the tea sac on the left associated with this abnormal signal in the epidural space. The tumor extending into the foramina on the left is also well seen on sagittal T1-weighted sequence image 9 of series 6 . No cord signal abnormality seen. No cord compression. There is a small central disc extrusion at the T10-T11 level with mild effacement of the ventral thecal sac, ax ial image 31 series 13 and sagittal image 14 series 7. .. IMPRESSION 1. Left lung apex mass extending to the scalene triangle, paraspinous soft tissues and superior mediastinum. 2. There is a involvement of the T1 and T2 vertebral bodies, the left C7-T1 through T3-T4 neural foramina and the ep idural space on the left in the upper thoracic spine. 3. There is a evidence of vascular encas ement of the left vertebral artery and partial encasement of the left subclavia n artery. The superior margin of the mass projects along the course of the le ft brachial plexus. This would be better assessed with dedicated brachial plexus imaging. 4. Changes of cervical spondylosis as de scribed. Thank you for letting us participate in the care of this patient. If you are a health care provider and have any questi ons regarding this report, please contact the number below. For patients w ho have questions please contact the health nurse care manager that requested your imaging first. Mulugeta Freedman MD IMG MRI ORDERABLES CT Chest w Contrast (05/04/2022 5:59 PM [...] who have questions please contact the health nurse care manager that requested your imaging first. ? Narrative 05/04/2022 7:36 PM EDT EXAMINATION: CT [...] ho have questions please contact the health nurse care manager that requested your imaging first. Mulugeta Freedman MD IMG CT ORDERABLES Phosphorus (05/04/2022 3:50 PM EDT) athologist Signature Phosphorus 3.4 2.5 - 4.5 [facility] mg/dL [facility] Specimen Anatomical Collection Method Collection Time Receive d Time (Source) Location / / Volume Laterality Blood Venous Draw / 05/04/2022 3:50 PM 05/04/20 22 4:02 Unknown EDT PM EDT Resulting Agency Comment Spec In Lab Fuad Garza MD CHEMISTRY ORDERABLES Performing Organization Address City/[facility]/ZIP Code Phon e Number [address] Magnesium (05/04/2022 3:50 PM EDT) athologist Signature Magnesium 0.89 0.69 - 1.07 [facility] mmol/L [facility] Specimen Anatomical Collection Method Collection Time Receive d Time (Source) Location / / Volume Laterality Blood Venous Draw / 05/04/2022 3:50 PM 05/04/20 22 4:02 Unknown EDT PM EDT Resulting Agency Comment Spec In Lab Fuad Garza MD CHEMISTRY ORDERABLES Performing Organization Address City/[facility]/ZIP Code Phon e Number [address] (ABNORMAL) Differential, Automated (05/04/2022 3:50 PM EDT) [facility] gist Method Time Signature Neutrophils % 69.4 % [facility] Neutr Abs (ANC) 7.23 (H) 1.70 - [facility] 6.10 [facility] x10(3)/[facility] L LABORATORY Lymphocytes % 18.4 % [facility] Lymphocytes Abs 1.9 0.9 - 3.2 [facility] x10(3)/[facility] LABORATORY Monocytes % 8.3 % [facility] Monocyte Abs 0.9 0.3 - 0.9 [facility] x10(3)/[facility] LABORATORY Eosinophils % 3.3 % [facility] Eosinophils Abs 0.3 0.0 - 0.4 [facility] x10(3)/[facility] LABORATORY Basophils % 0.2 % [facility] Basophils Abs 0.0 0.0 - 0.1 [facility] x10(3)/[facility] LABORATORY Immature Gran % 0.40 % [facility] Comment: Immature granulocytes(IG's)percentage an d absolute count will include metamyelocytes, myelocytes, and promyelo cytes. Blood smears from CBCs yielding IG's will be scanned manually for concor dance. If this scan disagrees with the automated IG or if promyelocytes are not ed, a manual differential will be performed. Cathy Gran Abs 0.04 0.00 - 0.04 x10(3)/[facility] MAR Y [facility]ORY Specimen Anatomical Collection Method Collection Time Receive d Time (Source) Location / / Volume Laterality Blood 05/04/2022 3:50 PM 2 3:58 EDT PM EDT Resulting Agency Comment Spec In Lab Olaf HUSSEIN HEMATOLOGY ORDERABLES Performing Organization Address City/State/[place] [address] (ABNORMAL) Hemogram (05/04/2022 3:50 PM EDT) Analysis Performed At Patho logist Time Signature WBC 10.4 (H) 4.0 - 9.5 [facility] x10(3)/[facility] LABORATORY RBC 5.01 4.58 - [facility] 5.54 [facility] x10(6)/[facility] LABORATORY Hemoglobin 15.9 13.7 - [facility] 16.5 g/dL [facility] Hematocrit 44.1 40.5 - [facility] 48.5 % [facility] MCV 88.0 82.9 - [facility] MENDEZCOCK 93.1 [facility] LABORATORY MCH 31.7 27.5 - [facility] VUONGCK 32.1 pg [facility] MCHC 36.1 (H) 32.0 - [facility] DIAS 35.7 g/dL [facility] Platelets 351 145 - 357 [facility] x10(3)/[facility] LABORATORY RDWSD 40.7 36.0 - [facility] DIAS 45.0 [facility] LABORATORY RDWCV 12.7 11.4 - [facility] VUONGCK 13.8 % [facility] MPV 9.7 7.6 - 12.9 [facility] DIAS [facility] LABORATORY nRBC % Auto 0.0 % [facility] nRBC Abs Auto 0.000 0.000 - [facility] DIAS 0.000 [facility] x10(3)/[facility] LABORATORY Specimen Anatomical Collection Method Collection Time Receive d Time (Source) Location / / Volume Laterality Blood 05/04/2022 3:50 PM 2 3:58 EDT PM EDT Resulting Agency Comment Spec In Lab Olaf HUSSEIN HEMATOLOGY ORDERABLES Performing Organization Address City/State/[place] [address] Troponin (05/04/2022 3:50 PM EDT) P athologist Signature Troponin-T <0.01 0.00 - 0.00 [facility] ng/mL [facility] Comment: The 99th percentile for Troponin T is le ss than 0.01 ng/mL, any detectable cTnT concentration using this assay should be considered elevated. According to the third universal definit ion of myocardial infarction the following criteria with a clinical prese ntation consistent with acute myocardial ischemia meets the diagnosis for a myocardial infarction ([place]). Detection of a rise and/or fall of [...] additional sample may be indicated. Reference: Third [place] Definition of Myocardial Infarction. Journal of the [place] [employer] 2012;60:1581-98 Specimen Anatomical Collection Method Collection Time Receive d Time (Source) Location / / Volume Laterality Blood 05/04/2022 3:50 PM 2 3:58 EDT PM EDT Resulting Agency Comment Spec In Lab Maribell Mike MD CHEMISTRY ORDERABLES Performing Organization Address City/State/[place] [address] (ABNORMAL) Comprehensive metabolic panel (non-fasting) (05/04/2022 3:50 PM EDT) P athologist Signature Glucose Lvl 102 65 - 199 [facility] mg/dL [facility] Comment: Diabetes: >=200 mg/dL plus symp toms BUN 20 10 - 20 mg/dL [facility] Creatinine 0.91 0.80 - 1.50 mg/dL [facility] Sodium 135 135 - 145 mmol/L [facility] Potassium 4.4 3.5 - 5.0 mmol/L [facility] Comment: Please note: ??Patients with WBC >100,00 0 may have falsely elevated Potassium levels. ??For accurate Potassium quantif ication in these patients send serum separator tube (gold top) for subsequent determinations. ??Contact the Clinical Chemistry Laboratory if there are any qu estions. Chloride 101 98 - 107 mmol/L [facility] CO2 23 22 - 31 mmol/L [facility] Anion Gap 11 5 - 15 mmol/L [facility] Calcium 9.3 8.5 - 10.5 mg/dL [facility] Total Protein 8.1 (H) 6.1 - 8.0 g/dL [facility] Albumin 4.3 3.2 - 5.2 g/dL [facility] AST 36 0 - 39 unit/L [facility] ALT 38 0 - 55 unit/L [facility] Alk Phos 86 40 - 130 unit/L [facility] Total Bilirubin 0.3 0.2 - 1.3 mg/dL [facility] Estimated GFR 100 >=60 mL/min/1.73 m?? [facility] Comment: This patient's estimated GFR was [...] (Source) Location / / Volume Laterality Blood 05/04/2022 3:50 PM 3:58 EDT PM EDT Resulting Agency Comment Spec In Lab Maribell Mike MD CHEMISTRY ORDERABLES Performing Organization Address City/State/[place] [address] XR Chest PA & Lateral (Generic) (05/04/2022 [...] who have questions please contact the health nurse care manager that requested your imaging first. ? Narrative 05/04/2022 3:59 PM EDT EXAMINATION: XR CHEST PA AND LATERAL (GENERIC) CLINICAL HISTORY: left sided chest pain TECHNIQUE: PA and lateral views of the c hest COMPARISON: Correlation is made to CT of the chest dated March 23, 2022. Comparison is made to multiple prior min st radiograph examinations, the most recent which is [...] original. EXAMINATION: XR CHEST PA AND LATERAL (EGEN NERIC) CLINICAL HISTORY: left sided chest pain TECHNIQUE: PA and lateral views of the c hest COMPARISON: Correlation is made to CT of the chest dated March 23, 2022. Comparison is made to multiple prior [facility] st radiograph examinations, the most recent which is [...] ho have questions please contact the health nurse care manager that requested your imaging first. Maribell Mike MD IMG DX ORDERABLES EKG 12 Lead (05/04/2022 3:36 PM EDT) Component Value Ref Range Test Analysis Performed Pathologis t Method Time At Signature Ventricular rate 91 BPM MUSE SYSTEM Atrial Rate 91 BPM MUSE SYSTEM P-R Interval 156 ms MUSE SYSTEM QRS Duration 98 ms MUSE SYSTEM Q-T Interval 376 ms MUSE SYSTEM QTC Calculated 462 ms MUSE SYSTEM (Bezet) Calculated P [place] 78 degrees MUSE SYSTEM Calculated R [place] 34 degrees MUSE SYSTEM Calculated T [place] 60 degrees MUSE SYSTEM INTERPRETATION Sinus rhythm with frequent a nd consecutive Premature ventricular complexes MUSE SYSTEM Biatrial enlargement Left ventricular hypertrophy Abnormal ECG When compared with ECG of 17-FEB-2012 15:09, Premature ventricular complexes are now Present Vent. rate has increased BY ??32 BPM QT has lengthened Confirmed by MD LIAM, KIRTI ([id number]) on 05/05/2022 9:01:50 AM Specimen Anatomical Collection Method Collection Time Receive d Time (Source) Location / / Volume Laterality 05/04/2022 3:36 PM 9:01 EDT AM EDT Maribell Mike MD ECG ORDERABLES Performing Organization Address City/State/ZIP Code Phon e Number MUSE SYSTEM documented in this encounter Visit Diagnoses Diagnosis Lung mass - Primary Swelling, mass, or lump in chest QT prolongation Nonspecific abnormal electrocardiogram ( ECG) (EKG) Altered mental status, unspecified alter ed mental status type documented in this encounter Admitting Diagnoses Diagnosis Lung mass Swelling, mass, or lump in chest documented in this encounter Administered Medications Inactive Administered Medications - up to 3 most recent administrations Medication Order MAR Action Action Date Dose Rate Site acetaminophen (Tylenol) tablet Given 05/04/2022 5:36 PM EDT 1,00 0 mg 1,000 mg 1,000 mg, Oral, ONCE, 1 dose, On Tue05/04/22 at 1730, Maximum dose of acetaminophen is 4000 mg from all sources in 24 hours. When ordered for pain, acetaminophen should be given even when other ordered pain medications are indicated. , STAT acetaminophen (Tylenol) tablet 975 mg Given 05/12/2022 8:43 AM EDT 975 mg 975 mg, Oral, 3 TIMES DAILY, First dose on Tue05/05/22 at 1700, Until Discontinued, Maximum dose of acetaminophen is 4000 mg from all sources in 24 hours. When ordered for pain, acetaminophen should be given even when other ordered pain medications are indicated. , Routine Given 05/11/2022 8:06 PM EDT 975 mg Given 05/11/2022 8:11 AM EDT 975 mg albuteroL 90 mcg/actuation inhaler 1 puf f Given 05/09/2022 5:30 PM EDT 1 puff 1 puff, Inhalation, EVERY 6 HOURS PRN, Starting on Tue05/07/22 at 2033, Until Tue05/12/22 at 1253, Wheezing, First line for wheezing, Routine Given 05/09/2022 8:43 AM EDT 1 puff Given 05/08/2022 9:54 AM EDT 1 puff aspirin 325 mg tablet Given 05/10/2022 10:48 PM EDT 325 mg 1 dose, Starting on Tue05/10/22 at 2247, Until Tue05/10/22 at 2248, Leighton Moncada: cabinet override aspirin chewable tablet 325 mg Given 05/12/2022 8:43 AM EDT 325 mg 325 mg, Oral, DAILY, First dose on Tue05/11/22 at 0900, Until Discontinued, Routine Given 05/11/2022 8:13 AM EDT 325 mg buprenorphine (Belbuca) buccal film 300 mcg Given 05/06/2022 12:01 PM EDT 300 mcg 300 mcg, Buccal, 2 TIMES DAILY, 2 doses, First dose on Tue05/05/22 at 2100, Last dose on Tue05/06/22 at 0900, Day 1. Check for withdrawal symptoms 1 hour after each dose. Contact provider for COWS score of 6 or greater to decrease buprenorphine dose., Routine Given 05/05/2022 10:05 PM EDT 300 mcg buprenorphine-naloxone (Suboxone) 2-0.5 Given 05/07/20 8:16 AM EDT 0.5 tablets mg disintegrating tablet 0.5 tablet 0.5 tablet (1 mg of opiate), Sublingual, 2 TIMES DAILY, 2 doses, First dose on Tue05/06/22 at 2100, Last dose on Tue05/07/22 at 0900, Day 2. 1 mg opiate = 1 mg buprenorphine Check for withdrawal symptoms 1 hour after each dose. Contact provider for COWS score of 6 or greater to decrease buprenorphine dose ., Routine Given 05/06/2022 8:36 PM EDT 0.5 tablets buprenorphine-naloxone (Suboxone) 2-0.5 mg Given 05/08 9:35 AM EDT 1 tablet disintegrating tablet 1 tablet 1 tablet (2 mg of opiate), Sublingual, 2 TIMES DAILY, 2 doses, First dose on Tue05/07/22 at 2100, Last dose on Tue05/08/22 at 0900, Day 3. 2 mg opiate = 2 mg buprenorphine Check for withdrawal symptoms 1 hour after each dose. Contact provider for COWS score of 6 or greater to decrease buprenorphine dose., Routine Given 05/07/2022 9:12 PM EDT 1 tablet buprenorphine-naloxone (Suboxone) 2-0.5 mg Given 05/09 8:19 AM EDT 2 tablets disintegrating tablet 2 tablet 2 tablet (4 mg of opiate), Sublingual, 2 TIMES DAILY, 2 doses, First dose on [facility] 05/08/22 at 2100, Last dose on [place] 05/09/22 at 0900, Day 4. 4 mg opiate = 4 mg buprenorphine Check for withdrawal symptoms 1 hour after each dose. Contact provider for COWS score of 6 or greater to decrease buprenorphine dose., Routine Given 05/08/2022 8:12 PM EDT 2 tablets buprenorphine-naloxone (Suboxone) 2-0.5 mg Given 05/12 8:44 AM EDT 2 tablets disintegrating tablet 2 tablet 2 tablet (4 mg of opiate), Sublingual, 4 TIMES DAILY, First dose (after last modification) on [place] 05/09/22 at 1116, Until Discontinued, STAT Given 05/11/2022 8:07 PM EDT 2 tablets Given 05/11/2022 12:27 PM EDT 2 tablets cloNIDine (Catapres) tablet 0.1 mg Given 05/06/2022 8:32 AM EDT 0.1 mg 0.1 mg, Oral, 2 TIMES DAILY, First dose (after last reorder) on Tue05/05/22 at 1400, Until Discontinued, Routine Given 05/05/2022 10:05 PM EDT 0.1 mg Given 05/05/2022 2:24 PM EDT 0.1 mg cloNIDine (Catapres) tablet 0.1 mg Given 05/06/2022 5:01 AM EDT 0.1 mg 0.1 mg, Oral, ONCE, 1 dose, On [facility] 05/06/22 at 0530, Routine cloNIDine (Catapres) tablet 0.2 mg Given 05/10/2022 8:07 AM EDT 0.2 mg 0.2 mg, Oral, 2 TIMES DAILY, First dose (after last modification) on [facility] 05/06/22 at 2100, Until Discontinued, Routine Given 05/09/2022 8:44 PM EDT 0.2 mg Given 05/09/2022 8:18 AM EDT 0.2 mg cloNIDine (Catapres) tablet 0.2 mg Given 05/12/2022 8:44 AM EDT 0.2 mg 0.2 mg, Oral, 3 TIMES DAILY, First dose (after last modification) on Tue05/10/22 at 1500, Until Discontinued, Routine Given 05/11/2022 8:07 PM EDT 0.2 mg Given 05/11/2022 8:12 AM EDT 0.2 mg dexAMETHasone (Decadron) tablet 4 mg Given 05/12/2022 8:44 AM EDT 4 mg 4 mg, Oral, EVERY 12 HOURS SCHEDULED (2 times per day), First dose on Tue05/05/22 at 2100, Until Discontinued, Routine Given 05/11/2022 8:07 PM EDT 4 mg Given 05/11/2022 8:12 AM EDT 4 mg dexAMETHasone (PF) (Decadron) (10 mg/mL) Given 05/05/2022 5:24 A M EDT 10 mg injection 10 mg 10 mg, Intravenous, ONCE, 1 dose, On Tue05/05/22 at 0445 diazePAM (Valium) (5 mg/mL) injection syringe 5 Given 05/10/2022 1:12 PM EDT 5 mg mg 5 mg, Intravenous, ONCE, 1 dose, On Tue05/10/22 at 1345, Please note size of syringe compared to ordered dose., STAT divalproex EC (Depakote) tablet 500 mg Given 05/12/2022 8:44 AM EDT 500 mg 500 mg, Oral, 2 TIMES DAILY, First dose on Tue05/05/22 at 0900, Until Discontinued, DO NOT SPLIT, CRUSH OR OPEN, Routine Given 05/11/2022 8:09 PM EDT 500 mg Given 05/11/2022 8:13 AM EDT 500 mg enoxaparin (Lovenox) (40 Given 05/11/2022 8:06 PM EDT 40 mg Right Lower Quadrant mg/0.4 mL) subcutaneous injection 40 mg 40 mg, Subcutaneous, NIGHTLY, First dose on Tue05/05/22 at 2100, Until Discontinued, Routine Given 05/10/2022 8:25 PM EDT 40 mg Given 05/09/2022 9:00 PM EDT 40 mg gabapentin (Neurontin) capsule 300 mg Given 05/07/2022 8:21 AM EDT 300 mg 300 mg, Oral, 3 TIMES DAILY, First dose on Tue05/05/22 at 1700, Until Discontinued, Routine Given 05/06/2022 8:37 PM EDT 300 mg Given 05/06/2022 2:19 PM EDT 300 mg gabapentin (Neurontin) capsule 400 mg Given 05/12/2022 8:43 AM EDT 400 mg 400 mg, Oral, 3 TIMES DAILY, First dose (after last modification) on Tue05/07/22 at 1530, Until Discontinued, Routine Given 05/11/2022 8:06 PM EDT 400 mg Given 05/11/2022 8:11 AM EDT 400 mg gadoterate meglumine (Dotarem) (0.5 mMol/mL) Given 8:06 PM EDT 15 mLs injection solution 0-100 mL 0-100 mL, Intravenous, ONCE PRN, 1 dose, Starting on Tue05/05/22 at 1240, Until Tue05/07/22 at 2006, Per Protocol, Radiology Contrast, Routine gadoterate meglumine (Dotarem) (0.5 mMol/mL) Given 09/2022 9:20 PM EDT 15 mLs injection solution 0-100 mL 0-100 mL, Intravenous, ONCE PRN, 1 dose, Starting on Tue05/04/22 at 2149, Until Tue05/04/22 at 2120, Per Protocol, Radiology Contrast, Routine gadoterate meglumine (Dotarem) (0.5 mMol/mL) Given 9:18 AM EDT 16 mLs injection solution 0-100 mL 0-100 mL, Intravenous, ONCE PRN, 1 dose, Starting on Tue05/05/22 at 0841, Until Tue05/05/22 at 0918, Per Protocol, for MRI brain wwo, Radiology Contrast, Routine HYDROmorphone (Dilaudid) (0.5 mg/0.5 mL) Given 05/05/2022 6:26 A M EDT 0.5 mg injection syringe 0.5 mg 0.5 mg, Intravenous, EVERY 1 HOUR PRN, 4 doses, Starting on Tue05/05/22 at 0345, Until Tue05/05/22 at 0640, Pain, STAT Given 05/05/2022 5:24 AM EDT 0.5 mg Given 05/05/2022 3:51 AM EDT 0.5 mg HYDROmorphone (Dilaudid) (0.5 mg/0.5 mL) Given 05/05/2022 9:44 A M EDT 1 mg Left Arm injection syringe 1 mg 1 mg, Subcutaneous, EVERY 4 HOURS PRN, Starting on Tue05/05/22 at 0639, Until Tue05/05/22 at 1218, Pain, For severe pain rated >7/10, Routine HYDROmorphone (Dilaudid) (0.5 mg/0.5 mL) Given 05/05/2022 7:07 A M EDT 1 mg injection syringe 1 mg 1 mg, Intravenous, ONCE, 1 dose, On Tue05/05/22 at 0658, Routine HYDROmorphone (Dilaudid) (1 mg/mL) injection Given 8:15 AM EDT 0.1 mg syringe 0.1 mg 0.1 mg, Intravenous, ONCE, 1 dose, On Tue05/07/22 at 0815, Routine HYDROmorphone (Dilaudid) (1 mg/mL) injection Given 05/05/2022 2: 20 PM EDT 1 mg syringe 1 mg 1 mg, Intravenous, EVERY 4 HOURS PRN, Starting on Tue05/05/22 at 1217, Until Tue05/05/22 at 1607, Pain, Severe pain rated > 7/10, Routine HYDROmorphone (Dilaudid) (1 mg/mL) injection Given 05/06/2022 6: 01 PM EDT 1 mg syringe 1 mg 1 mg, Subcutaneous, EVERY 2 HOURS PRN, Starting on Tue05/05/22 at 1605, Until Tue05/06/22 at 2014, Pain, Use PO first, Routine Given 05/06/2022 3:43 PM EDT 1 mg Given 05/06/2022 1:49 PM EDT 1 mg HYDROmorphone (Dilaudid) (1 mg/mL) injection Given 2 10:53 PM EDT 1 mg syringe 1 mg 1 mg, Subcutaneous, EVERY 2 HOURS PRN, Starting on Tue05/06/22 at 2011, Until Tue05/12/22 at 1253, Pain, secondary if PO is not working, Routine Given 05/09/2022 3:09 PM EDT 1 mg Given 05/09/2022 10:07 AM EDT 1 mg HYDROmorphone (Dilaudid) (1 mg/mL) injection Given 2 11:44 AM EDT 1 mg syringe 1 mg 1 mg, Intravenous, ONCE, 1 dose, On Tue05/09/22 at 1215, Note route of administration, STAT HYDROmorphone (Dilaudid) (1 mg/mL) injection Given 05/09/2022 4: 28 PM EDT 1 mg syringe 1 mg 1 mg, Intravenous, ONCE, 1 dose, On Tue05/09/22 at 1700, Note route of administration, STAT HYDROmorphone (Dilaudid) (1 mg/mL) injection Given 05/10/2022 1: 39 PM EDT 1 mg syringe 1 mg 1 mg, Intravenous, ONCE, 1 dose, On Tue05/10/22 at 1345, STAT HYDROmorphone (Dilaudid) tablet 4 mg Given 05/06/2022 6:56 PM EDT 4 mg 4 mg, Oral, EVERY 2 HOURS PRN, Starting on Tue05/05/22 at 1605, Until Tue05/06/22 at 2014, Pain, Use PO first, Routine Given 05/06/2022 4:51 PM EDT 4 mg Given 05/06/2022 2:18 PM EDT 4 mg HYDROmorphone (Dilaudid) tablet 4 mg Given 05/09/2022 5:29 PM EDT 4 mg 4 mg, Oral, EVERY 2 HOURS PRN, Starting on Tue05/06/22 at 2013, Until Tue05/09/22 at 2112, Pain, first line, Routine Given 05/09/2022 1:56 PM EDT 4 mg Given 05/09/2022 8:43 AM EDT 4 mg HYDROmorphone (Dilaudid) tablet 4 mg Given 05/10/2022 6:33 PM EDT 4 mg 4 mg, Oral, EVERY 1 HOUR PRN, Starting on Tue05/09/22 at 2115, Until Tue05/10/22 at 2046, Pain, first line, Routine Given 05/10/2022 11:59 AM EDT 4 mg Given 05/10/2022 9:34 AM EDT 4 mg HYDROmorphone (Dilaudid) tablet 4 mg Given 05/12/2022 8:51 AM EDT 4 mg 4 mg, Oral, EVERY 2 HOURS PRN, Starting on Tue05/10/22 at 2100, Until Tue05/12/22 at 1253, Pain, first line, Routine Given 05/11/2022 8:05 PM EDT 4 mg Given 05/11/2022 12:30 PM EDT 4 mg hydrOXYzine (Atarax) tablet 25 mg Given 05/08/2022 4:40 PM EDT 25 mg 25 mg, Oral, ONCE, 1 dose, On 05/08/22 at 1715, Routine hydrOXYzine (Atarax) tablet 25 mg Given 05/09/2022 10:07 AM EDT 25 mg 25 mg, Oral, ONCE, 1 dose, On 05/09/22 at 0915, Routine hydrOXYzine (Atarax) tablet 25 mg Given 05/11/2022 10:29 PM EDT 25 mg 25 mg, Oral, 3 TIMES DAILY PRN, Starting on Tue05/09/22 at 1400, Until Tue05/12/22 at 1253, Anxiety, Routine Given 05/10/2022 11:59 AM EDT 25 mg Given 05/10/2022 6:14 AM EDT 25 mg iohexoL (Omnipaque) (350 mg/mL) Given 05/04/2022 5:56 PM EDT 60 mLs Right Arm solution 0-200 mL 0-200 mL, Intravenous, ONCE PRN, 1 dose, Starting on Tue05/04/22 at 1756, Until Tue05/04/22 at 1756, Per Protocol, Warning Vesicant/Irritant Medication , Radiology Contrast, Routine iohexoL (Omnipaque) (350 mg/mL) solution Given 05/05/2022 11:27 AM EDT 88 mLs 0-200 mL 0-200 mL, Intravenous, ONCE PRN, 1 dose, Starting on Tue05/05/22 at 1127, Until Tue05/05/22 at 1127, Per Protocol, Warning Vesicant/Irritant Medication , Radiology Contrast, Routine iohexoL (Omnipaque) (350 mg/mL) solution Given 05/05/2022 11:27 AM EDT 50 mLs 0-50 mL 0-50 mL, Oral, ONCE PRN, 1 dose, Starting on Tue05/05/22 at 1127, Until Tue05/05/22 at 1127, Per Protocol, Warning Vesicant/Irritant Medication , Radiology Contrast, Routine ipratropium-albuteroL (Duoneb) 0.5 mg-3 mg(2.5 Given 0 05/11/2022 1:08 AM EDT 3 mLs mg base)/3 mL nebulizer solution 3 mL 3 mL, Nebulization, 4 TIMES DAILY PRN, Starting on Tue05/07/22 at 1610, Until Tue05/12/22 at 1253, Wheezing, Second line for wheezing, Routine Given 05/08/2022 12:36 PM EDT 3 mLs ketamine (Ketalar) 11.6 mg in New Bag 05/05/2022 3:52 AM EDT 1 1.6 mg 404.6 mL/hr sodium chloride 0.9% 101.16 mL infusion 11.6 mg (rounded from 11.565 mg = 0.15 mg/kg/dose ? 77.1 kg), Intravenous, ONCE, 1 dose, On Tue05/05/22 at 0352, Administer over 15 Minutes, Add volume of ketamine to sodium chloride 0.9% 100 mL bag and mix. Administer immediately, infusing over 15 minutes. RN/HAZARDOUS WASTE TECHNICIAN to remain at bedside during the 15 minute infusion. Please double check volume of ketamine 10 mg/mL used to mix infusion bag ketorolac (Toradol) (30 mg/mL) injection 15 mg Given 05/04/2022 5:42 PM EDT 15 mg 15 mg, Intravenous, ONCE, 1 dose, On Tue05/04/22 at 1730, Routine ketorolac (Toradol) (30 mg/mL) injection 15 mg Given 05/11/2022 8:11 AM EDT 15 mg 15 mg, Intravenous, EVERY 6 HOURS, 20 doses, First dose on Tue05/07/22 at 1430, Last dose on Tue05/12/22 at 0830, Routine Given 05/11/2022 2:52 AM EDT 15 mg Given 05/10/2022 8:26 PM EDT 15 mg labetaloL (Normodyne) (5 mg/mL) injectio n solution 20 mg 20 mg, Intravenous, ONCE PRN, 1 dose, St arting on Tue05/10/22 at 2302, Until Tue05/12/22 at 1253, High Blood Pressure, Pl ease give if BP remains sustained above 180 systolic, Routine lactated Ringers 1,000 mL IV bolus New Bag 05/04/2022 5:42 PM EDT 2000 mL/hr at 2,000 mL/hr, Intravenous, ONCE, 1 dose, On Tue05/04/22 at 1730 lactated Ringers 1,000 mL IV bolus New Bag 05/04/2022 11:16 PM EDT 2000 mL/hr at 2,000 mL/hr, Intravenous, ONCE, 1 dose, On Tue05/04/22 at 2238 lidocaine (pf) (Xylocaine) New Bag 05/11/2022 8:14 AM EDT 1.5 mg/kg/hr 28.9 mL/hr (4 mg/mL) in dextrose 5% 500 mL infusion 1.5 mg/kg/hr ? 77.1 kg (28.9125 mL/hr, rounded to 28.9 mL/hr), Intravenous, CONTINUOUS, Starting on Tue05/10/22 at 1400, Until Tue05/11/22 at 1359, Routine New Bag 05/10/2022 3:04 PM EDT 1.5 mg/kg/hr 28.9 mL/hr LORazepam (Ativan) tablet 0.5 mg Given 05/11/2022 12:27 PM EDT 0.5 mg 0.5 mg, Oral, ONCE, 1 dose, On Tue05/11/22 at 1145, STAT LORazepam (Ativan) tablet 1 mg Given 05/12/2022 8:44 AM EDT 1 mg 1 mg, Oral, EVERY 6 HOURS, First dose on Tue05/10/22 at 1530, Until Discontinued, Routine Given 05/11/2022 8:47 PM EDT 1 mg Given 05/11/2022 8:30 AM EDT 1 mg melatonin tablet 9 mg Given 05/11/2022 10:29 PM EDT 9 mg 9 mg, Oral, NIGHTLY PRN, Starting on Tue05/05/22 at 2329, Until Tue05/12/22 at 1253, for insomnia, Routine Given 05/08/2022 8:12 PM EDT 9 mg Given 05/07/2022 9:00 PM EDT 9 mg metoprolol tartrate (Lopressor) tablet 12.5 Given 04/24 8:44 AM EDT 12.5 mg mg 12.5 mg, Oral, EVERY 12 HOURS SCHEDULED (2 times per day), First dose on Tue05/05/22 at 1330, Until Discontinued, Hold for SBP<90, HR<60, Routine Given 05/11/2022 8:06 PM EDT 12.5 mg Given 05/11/2022 8:09 AM EDT 12.5 mg mirtazapine (Remeron) tablet 7.5 mg Given 05/11/2022 8:06 PM EDT 7.5 mg 7.5 mg, Oral, NIGHTLY, First dose on Tue05/09/22 at 2100, Until Discontinued, Routine Given 05/10/2022 8:24 PM EDT 7.5 mg Given 05/09/2022 9:00 PM EDT 7.5 mg morphine (4 mg/mL) injection 4 mg Given 05/04/2022 6:18 PM EDT 4 mg 4 mg, Intravenous, ONCE, 1 dose, On Tue05/04/22 at 1813, STAT morphine (4 mg/mL) injection 4 mg Given 05/04/2022 8:10 PM EDT 4 mg 4 mg, Intravenous, ONCE, 1 dose, On Tue05/04/22 at 2006, STAT morphine (4 mg/mL) injection 4 mg Given 05/04/2022 11:16 PM EDT 4 mg 4 mg, Intravenous, ONCE, 1 dose, On Tue05/04/22 at 2303, STAT morphine (4 mg/mL) injection 4 mg Given 05/05/2022 1:18 AM EDT 4 mg 4 mg, Intravenous, ONCE, 1 dose, On Tue05/05/22 at 0100, STAT morphine (4 mg/mL) injection 4 mg Given 05/05/2022 2:46 AM EDT 4 mg 4 mg, Intravenous, ONCE, 1 dose, On Tue05/05/22 at 0245, STAT multivitamin with minerals (Thera M) tablet Given 04/24 8:44 AM EDT 1 tablet 1 tablet 1 tablet, Oral, DAILY, First dose on Tue05/05/22 at 1330, Until Discontinued, Routine Given 05/11/2022 8:11 AM EDT 1 tablet Given 05/10/2022 8:08 AM EDT 1 tablet naloxone (Narcan) (0.4 mg/mL) injection 0.2-2 mg 0.2-2 mg, Intravenous, ONCE PRN, 1 dose, Starting on Tue05/11/22 at 1822, Until Tue05/12/22 at 1253, Opioid Reversal, Start with 0.2mg via intravenous. May repeat 0.2 mg every 2-3 minutes until patient is re sponsive or vital signs improve to maximum of 2 mg total. If ineffective, call HERT team [phone]. , Routine nitroGLYcerin (Nitrostat) 0.4 mg disinte grating tablet 1 dose, Starting on Tue05/10/22 at 2235, Until 04/23 at 2236, Leighton Moncada: cabinet override nitroGLYcerin (Nitrostat) disintegrating Given 05/10/2022 10:36 PM EDT 0.4 mg tablet 0.4 mg 0.4 mg, Sublingual, EVERY 5 MIN PRN, Starting on Tue05/10/22 at 2226, Until Tue05/10/22 at 2354, Chest pain, May repeat every 5 minutes for a total of three doses. Notify provider if chest pain not relieved with nitroglycerin. Do not administer nitroglycerin if the patient has received or taken phosphodiesterase (PDE-5) inhibitors such as sildenafil, tadalafil or vardenafil within the last 24 to 72 hours., Routine ondansetron (pf) (Zofran) (2 mg/mL) injection 4 Given 05/04/2022 6:06 PM EDT 4 mg mg 4 mg, Intravenous, ONCE, 1 dose, On Tue05/04/22 at 1806, STAT ondansetron (pf) (Zofran) (2 mg/mL) inje ction 4-8 mg 4-8 mg, Intravenous, EVERY 8 HOURS PRN, Starting on Tue05/09/22 at 0835, Until Tue05/12/22 at 1253, Nausea, Start with 4mg and if ineffective in 30 minutes, give an additional 4mg If multiple antiemetic s are ordered, give ondansetron first. ondansetron (Zofran) tablet 4-8 mg Given 05/09/2022 10:12 AM EDT 4 mg 4-8 mg, Oral, EVERY 8 HOURS PRN, Starting on Tue05/09/22 at 0835, Until Tue05/12/22 at 1253, Nausea, Vomiting, If multiple antiemetics are ordered, use ondansetron first. PO Preferred. If patient unable to take PO, may give IV if ordered. Start with 4mg and if ineffective in 45 minutes, give an additional 4mg. If unable to take PO, may give IV., Routine Given 05/09/2022 8:43 AM EDT 4 mg pantoprazole EC (Protonix) tablet 40 mg Given 05/12/2022 8:44 AM EDT 40 mg 40 mg, Oral, DAILY, First dose on Tue05/05/22 at 1330, Until Discontinued, DO NOT CRUSH OR OPEN Given 05/11/2022 8:14 AM EDT 40 mg Given 05/10/2022 8:08 AM EDT 40 mg polyethylene glycoL (Miralax) packet 17 g 17 g, Oral, DAILY PRN, Starting on Tue at 1548, Until Tue05/12/22 at 1253, Constipation, Routine senna-docusate (Pericolace) 8.6-50 mg per Given 2021 8:43 AM EDT 2 tablets tablet 2 tablet 2 tablet, Oral, 2 TIMES DAILY, First dose on Tue05/05/22 at 2100, Until Discontinued, Routine Given 05/11/2022 8:06 PM EDT 2 tablets Given 05/11/2022 8:11 AM EDT 2 tablets documented in this encounter Active and Recently Administered Medications Times are shown in EDT. Scheduled Medication Order 05/10/2022 05/11/2022 05/12/2022 acetaminophen (Tylenol) tablet 975 mg 0808 (Given - Pr ovider: Maylin Lepe RN)1420 (Given - Provider: Maylin Lepe RN)2024 (Given - Provider: Leighton Moncada RN) 0811 (Given - Provider: Maylin Lepe RN)1500 (Not Given - Provider: Maylin Lepe RN - Reason: Patient/family refused)2005 (Given - Provider: Abdelrahman Pena RN) 0843 (Given - Provider: Zohreh Lucas RN) 975 mg, Oral, 3 TIMES DAILY, First dose on Tue05/05/22 at 1700, Until Discontinued, Maximum dose of acetaminophen is 4000 mg from all sources in 24 hours. When ordered for pain, acetaminophen should be given even when other ordered pain medications are indicated. , Routine aspirin chewable tablet 325 mg 0813 (Given - Pro vider: Maylin Lepe RN) 0843 (Given - Provider: Zohreh Lucas, ANA) 325 mg, Oral, DAILY, First dose on Tue at 0900, Until Discontinued, Routine buprenorphine-naloxone (Suboxone) 2-0.5 mg disintegrat ing tablet 2 tablet 0808 (Given - Provider: Maylin Lepe RN)1420 (Given - Provider: Maylin Lepe RN)1626 (Given - Provider: Maylin Lepe RN)202 (Given - Provider: Leighton Moncada RN) 0812 (Given - Provider: Maylin Lpee RN)1227 (Given - Provider: Maylin Lepe RN)1700 (Not Given - Provider: Maylin Lepe RN - Reason: Patient/family refused - Comment: pt removed ID band, refuses new band. 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 ID) 0844 (Given - Provider: Zohreh Lucas RN) 2 tablet (4 mg of opiate), Sublingual, 4 TIMES DAILY, First dose (after last modification) on Tue05/09/22 at 1116, Until Discontinued, STAT 2006 (Given - Provider: Abdelrahman Pena RN) cloNIDine (Catapres) tablet 0.2 mg (CANCELED) 0807 (Gi gen - Provider: Maylin Lepe RN) 0.2 mg, Oral, 2 TIMES DAILY, First dose (after last modification) on Deborah 05/06/22 at 2100, Until Discontinued, Routine cloNIDine (Catapres) tablet 0.2 mg 1420 (Given - Provi matt: Maylin Lepe RN)202 (Given - Provider: Leighton Moncada RN) 0812 (Given - Provider: Maylin Lepe RN)1500 (Not Given - Provider: Maylin Lepe RN - Reason: Patient/family refused)2006 (Given - Provider: Abdelrahman Pena RN) 0844 (Given - Provider: Zohreh Lucas, RN) 0.2 mg, Oral, 3 TIMES DAILY, First dose (after last modification) on Tue05/10/22 at 1500, Until Discontinued, Routine dexAMETHasone (Decadron) tablet 4 mg 806 (Given - Pro vider: Maylin Lepe RN)2023 (Given - Provider: Leighton Moncada RN) 811 (Given - Provider: Maylin Lepe RN)2006 (Given - Provider: Abdelrahman Pena, ANA) 0844 (Given - Provider: Zohreh Lucas, ANA) 4 mg, Oral, EVERY 12 HOURS SCHEDULED (2 times per day), First dose on Tue05/05/22 at 2100, Until Discontinued, Routine diazePAM (Valium) (5 mg/mL) injection syringe 5 mg (CO MPLETED) 131 (Given - Provider: Maylin Lepe RN) 5 mg, Intravenous, ONCE, 1 dose, On Tue05/10/22 at 1345, Please note size of syringe compared to ordered dose., STAT divalproex EC (Depakote) tablet 500 mg 808 (Given - P rovider: Maylin Lepe RN)2216 (Given - Provider: Leighton Moncada RN - Comment: missing med) 812 (Given - Provider: Maylin Lepe RN)2008 (Given - Provider: Abdelrahman Pena RN) 0844 (Given - Provider: Zohreh Lucas, ANA) 500 mg, Oral, 2 TIMES DAILY, First dose on Tue05/05/22 at 0900, Until Discontinued, DO NOT SPLIT, CRUSH OR OPEN, Routine enoxaparin (Lovenox) (40 mg/0.4 mL) subcutaneous injec tion 40 mg 2024 (Given - Provider: Leighton Moncada RN) 2005 (Given - Provider: Abdelrahman Pena, ANA) 40 mg, Subcutaneous, NIGHTLY, First dose on Tue05/05/22 at 2100, Until Discontinued, Routine gabapentin (Neurontin) capsule 400 mg 808 (Given - Pr ovider: Maylin Lepe RN)1420 (Given - Provider: Maylin Lepe RN)2024 (Given - Provider: Leighton Moncada RN) 0811 (Given - Provider: Maylin Lepe RN)1500 (Not Given - Provider: Maylin Lepe RN - Reason: Patient/family refused)2005 (Given - Provider: Abdelrahman Pena RN) 0843 (Given - Provider: Zohreh Lucas, ANA) 400 mg, Oral, 3 TIMES DAILY, First dose (after last modification) on Tue05/07/22 at 1530, Until Discontinued, Routine HYDROmorphone (Dilaudid) (1 mg/mL) injection syringe 1 mg (COMPLETED) 1339 (Given - Provider: Maylin Lepe RN) 1 mg, Intravenous, ONCE, 1 dose, On Tue05/10/22 at 1345, STAT ketorolac (Toradol) (30 mg/mL) injection 15 mg 0301 (G iven - Provider: Jennifer Zazueta RN)0809 (Given - Provider: Maylin Lepe RN)1420 (Given - Provider: Maylin Lepe RN)2025 (Given - Provider: Leighton Moncada RN) 0252 (Given - Provider: Leighton Moncada RN)0811 (Given - Provider: Maylin Lepe RN)1430 (Not Given - Provider: Maylin Lepe RN - Reason: Patient/family refused - Comment: that stuff doesnt do anything) 020 (Not Given - Provider: Abdelrahman Pena RN - Reason: See comment - Comment: no IV access)0830 (Not Given - Provider: Zohreh Lucas, ANA - Reason: Contraindicated) 15 mg, Intravenous, EVERY 6 HOURS, 20 do ses, First dose on Tue05/07/22 at 1430, Last dose on Tue05/12/22 at 0830, Routine 2013 (Not Gi gen - Provider: Abdelrahman Pena RN - Reason: Contraindicated - Comment: No IV access) LORazepam (Ativan) tablet 0.5 mg (COMPLETED) 1227 (Given - Provider: Maylin Lepe RN) 0.5 mg, Oral, ONCE, 1 dose, On Tue05/11/22 at 1145, STAT LORazepam (Ativan) tablet 1 mg 1504 (Given - Provider: Maylin Lepe RN)2218 (Given - Provider: Leighton Moncada RN) 0252 (Given - Provider: Leighton Moncada RN)0830 (Given - Provider: Maylin Lepe RN)1530 (Not Given - Provider: Maylin Lepe RN - Reason: Patient/family refused)2047 (Given - Provider: Temi Benton RN) 0330 (Not Given - Provider: Abdelrahman Pena RN - Reason: Contraindicated)0844 (Given - Provider: Zohreh Lucas, ANA) 1 mg, Oral, EVERY 6 HOURS, First dose on Tue05/10/22 at 1530, Until Discontinued, Routine metoprolol tartrate (Lopressor) tablet 12.5 mg 0807 (G iven - Provider: Maylin Lepe RN)2023 (Given - Provider: Leighton Moncada RN) 0809 (Given - Provider: Maylin Lepe RN)2005 (Given - Provider: Abdelrahman Pena, ANA) 0844 (Given - Provider: Zohreh Lucas, ANA) 12.5 mg, Oral, EVERY 12 HOURS SCHEDULED (2 times per day), First dose on Tue05/05/22 at 1330, Until Discontinued, Hold for SBP<90, HR<60, Routine mirtazapine (Remeron) tablet 7.5 mg 2023 (Given - Prov ider: Leighton Moncada RN) 2005 (Given - Provider: Abdelrahman Pena, ANA) 7.5 mg, Oral, NIGHTLY, First dose on Tue05/09/22 at 2100, Until Discontinued, Routine multivitamin with minerals (Thera M) tablet 1 tablet 0 808 (Given - Provider: Maylin Lepe RN) 0811 (Given - Provider: Maylin Lepe RN) 0844 (Give n - Provider: Zohreh M Lucas, RN) 1 tablet, Oral, DAILY, First dose on Tue05/05/22 at 1330, Until Discontinued, Routine pantoprazole EC (Protonix) tablet 40 mg 0808 (Given - Provider: Maylin Lepe RN) 0814 (Given - Provider: Maylin Lepe RN) 0844 (Give n - Provider: Zohreh Lucas, ANA) 40 mg, Oral, DAILY, First dose on Tue at 1330, Until Discontinued, DO NOT CRUSH OR OPEN senna-docusate (Pericolace) 8.6-50 mg per tablet 2 tab let 08 (Given - Provider: Maylin Lepe RN)2024 (Given - Provider: Leighton Moncada RN) 0811 (Given - Provider: Maylin Lepe RN)2005 (Given - Provider: Abdelrahman Pena RN) 0843 (Given - Provider: Zohreh Lucas, ANA) 2 tablet, Oral, 2 TIMES DAILY, First dos e on Tue05/05/22 at 2100, Until Discontinued, Routine Continuous Medication Order 05/10/2022 05/11/2022 05/12/2022 lidocaine (pf) (Xylocaine) (4 mg/mL) in dextrose 5% 50 0 mL infusion (CANCELED) 1504 (New Bag - Provider: Maylin Lepe RN) 0814 (New Bag - Provider: Maylin Lepe RN)1833 (Due: Stopped - Provider: Belen Malagon MD - Comment: Time automatically adjusted from order being discontinued) 1.5 mg/kg/hr ? 77.1 kg (28.9125 mL/hr, rounded to 28.9 mL/hr), Intravenous, CONTINUOUS, Starting on Tue05/10/22 at 1400, Until Tue05/11/22 at 1359, Routine PRN Medication Order 05/10/2022 05/11/2022 05/12/2022 albuteroL 90 mcg/actuation inhaler 1 puff 1 puff, Inhalation, EVERY 6 HOURS PRN, S tarting on Tue05/07/22 at 2033, Until Tue05/12/22 at 1253, Wheezing, First line for wheezing, Routine HYDROmorphone (Dilaudid) (1 mg/mL) injection syringe 1 mg 1312 (Canceled Entry - Provider: Maylin Lepe RN - Reason: See comment)2253 (Given - Provider: Leighton Moncada RN) 1 mg, Subcutaneous, EVERY 2 HOURS PRN, S tarting on Deborah 05/06/22 at 2011, Until Tue05/12/22 at 1253, Pain, secondary if PO is not working, Routine HYDROmorphone (Dilaudid) tablet 4 mg (CANCELED) 0008 ( Given - Provider: Jennifer Zazueta RN)0116 (Given - Provider: Jennifer Zazueta, ANA)0301 (Given - Provider: Jennifer Zazueta RN)0430 (Given - Provider: Jennifer Zazueta RN)0611 (Given - Provider: Jennifer Zazueta RN) 4 mg, Oral, EVERY 1 HOUR PRN, Starting o n 05/09/22 at 2115, Until Tue05/10/22 at 2046, Pain, first line, Routine 0730 (Given - Provider: Maylin Lepe RN)0934 (Given - Provider: Maylin Lepe RN)1159 (Given - Provider: Maylin Lepe RN)1833 (Given - Provider: Maylin Lepe RN) HYDROmorphone (Dilaudid) tablet 4 mg 210 (Given - Pro vider: Leighton Moncada RN)2309 (Given - Provider: Leighton Moncada RN - Comment: per provider ok to give) 0109 (Given - Provider: Leighton lloyd RN)0510 (Given - Provider: Leighton Moncada, ANA)1230 (Given - Provider: Maylin Lepe RN)2004 (Given - Provider: Abdelrahman Pena RN) 0851 (Given - Provider: Zohreh Lucas RN) 4 mg, Oral, EVERY 2 HOURS PRN, Starting on 05/10/22 at 2100, Until Tue05/12/22 at 1253, Pain, first line, Routine hydrOXYzine (Atarax) tablet 25 mg 0614 (Given - Provid er: Jennifer Zazueta, ANA)1159 (Given - Provider: Maylin Lepe RN) 2228 (Given - Provider: Abdelrahman Pena RN) 25 mg, Oral, 3 TIMES DAILY PRN, Starting on Tue05/09/22 at 1400, Until Tue05/12/22 at 1253, Anxiety, Routine ipratropium-albuteroL (Duoneb) 0.5 mg-3 mg(2.5 mg base)/3 mL nebulizer solution 3 mL 107 (Given - Provider: Leighton lloyd, ANA) 3 mL, Nebulization, 4 TIMES DAILY PRN, S tarting on Tue05/07/22 at 1610, Until Tue05/12/22 at 1253, Wheezing, Second line for wheezing, Routine labetaloL (Normodyne) (5 mg/mL) injection solution 20 mg 20 mg, Intravenous, ONCE PRN, 1 dose, St arting on Tue05/10/22 at 2302, Until Tue05/12/22 at 1253, High Blood Pressure, Please give if BP remains sustained above 180 systolic, Routine melatonin tablet 9 mg 2228 (Given - Provider: Asiya Pena RN) 9 mg, Oral, NIGHTLY PRN, Starting on Tue05/05/22 at 2329, Until Tue05/12/22 at 1253, for insomnia, Routine naloxone (Narcan) (0.4 mg/mL) injection 0.2-2 mg 0.2-2 mg, Intravenous, ONCE PRN, 1 dose, Starting on Tue05/11/22 at 1822, Until Tue05/12/22 at 1253, Opioid Reversal, Start with 0.2mg via intravenous. May repeat 0.2 mg every 2-3 minutes until patient is responsive or vital signs improve to maximum of 2 mg total. If ineffective, call HERT team [phone]. , Routine nitroGLYcerin (Nitrostat) disintegrating tablet 0.4 mg (CANCELED) 2235 (Given - Provider: Leighton Moncada RN) 0.4 mg, Sublingual, EVERY 5 MIN PRN, Sta rting on Tue05/10/22 at 2226, Until Tue05/10/22 at 2354, Chest pain, May repeat every 5 minutes for a total of three doses. Notify provider if chest pain not reli eved with nitroglycerin. Do not administ er nitroglycerin if the patient has received or taken phosphodiesterase (PDE-5) inhibitors such as sildenafil, tadalafil or vardenafil within the last 24 to 72 hours., Routine ondansetron (pf) (Zofran) (2 mg/mL) injection 4-8 mg(Linked Grou p 1) 4-8 mg, Intravenous, EVERY 8 HOURS PRN, Starting on Tue05/09/22 at 0835, Until Tue05/12/22 at 1253, Nausea, Start with 4mg and if ineffective in 30 minutes, give an additional 4mg If multiple antiemetics are ordered, give ondansetron first. ondansetron (Zofran) tablet 4-8 mg(Linked Group 1) 4-8 mg, Oral, EVERY 8 HOURS PRN, Startin g on Tue05/09/22 at 0835, Until Tue05/12/22 at 1253, Nausea, Vomiting, If multiple antiemetics are ordered, use ondansetron first. PO Preferred. If patient un able to take PO, may give IV if ordered. Start with 4mg and if ineffective in 45 minutes, give an additional 4mg. If unable to take PO, may give IV., Routine polyethylene glycoL (Miralax) packet 17 g 17 g, Oral, DAILY PRN, Starting on Tue at 1548, Until Tue05/12/22 at 1253, Constipation, Routine No Frequency Medication Order 05/10/2022 05/11/2022 05/12/2022 aspirin 325 mg tablet (COMPLETED) 2248 (Given - Provid er: Leighton Moncada RN) 1 dose, Starting on Tue05/10/22 at 2247, Until Tue05/11/22 at 1059, Leighton Moncada: cabinet override Linked Groups Order Group 1: ondansetron (Zofran) tablet 4-8 mgJump to med 4-8 mg, Oral, EVERY 8 HOURS PRN, Startin g on Tue05/09/22 at 0835, Until Tue05/12/22 at 1253, Nausea, Vomiting
If multiple antiemetics are ordered, use ondansetron first. PO Prefer red. If patient unable to take PO, may g betty IV if ordered. Start with 4mg and if ineffective in 45 minutes, give an additional 4mg. If unable to take PO, may give IV.
Routine Or ondansetron (pf) (Zofran) (2 mg/mL) injection 4-8 mgJump to med 4-8 mg, Intravenous, EVERY 8 HOURS PRN, Starting on 05/09/22 at 0835, Until 05/12/22 at 1253, Nausea
Start with 4mg and if ineffective in 30 minutes, give an additional 4mg If multiple antiemetics are ordered, give ondansetron first.
documented in this encounter Care Teams Botany Professor Relationship Specialty Start Date End Date Willam Waite MD PCP - General 03/24/2203 [address] [place] [address] documented as of this encounter
--- OUTSIDE RECORDS SUMMARY | 2022-07-12 08:56 | XMS_ITS | Encounter Summary ---
:1965 Author Organization [facility] Address [address] [place] [address] Care Team Providers Name Role Phone Willam Waite MD Primary Care Provider Reason for Visit Reason Onset Date Comments Prior Authorization 05/06/2022 [facility] cancer [facility] CPT 95740 is a covered benefit. Encounter Details Date Type Department Care Team Description 05/06/2022 Telephone Revenue Management Pallavi Cornejo or Authorization Division ([facility] [place] [address] [place] benefit. ) [place] [address] Social History Tobacco Use Types Packs/Day Years [...] this encounter Miscellaneous Notes Telephone Encounter - Pallavi Cornejo - 05/06/2022 2:58 PM EDT Molecular cancer testing: CPT 31361 is a covered benefit: I received an e-mail from Pilar in [employer] ([employer] 05/04/2022) requesting coverage review for CPT 21922 which is to be done on the patient???s non-small cell lung cancer tissue obtained on 04/29/2022, provider is Antonio Jeronimo MD. Per a phone call to [employer] ) the policy is active and in network with [facility]. REF # [id number]. I will e-mail Pilar to let her know of approved coverage. documented in this encounter Plan of Treatment Upcoming Encounters Date Type Specialty Care Team Description 07/14/2022 TH Visit (TeleHealth) Palliative Care Kian Zelaya APRN [facility] PALLIATIVE MEDIC [place], [place] [address] (Wo rk) 07/22/2022 TH Visit (TeleHealth) Palliative Care Benoit Lei DENTAL INTERN [facility] [place] [address] Criselda Zelaya DENTAL INTERN [facility] [place] [address] 08/12/2022 Office Visit Cardiology Hari Summers MD [facility] [place] [address] Kit Bonilla MD [facility] [place] [address] documented as of this encounter Visit Diagnoses Not on filedocumented in this encounter Care Teams Business Intelligence Analyst Relationship Specialty Start Date End Date Willam Waite MD PCP - General 03/24/22 6 [place] [address] documented as of this encounter
--- OUTSIDE RECORDS SUMMARY | 2022-07-12 08:56 | XMS_ITS | Encounter Summary ---
:1965 Author Organization [facility] [place] [address] Care Team Providers Name Role Phone Willam Waite MD Primary Care Provider Reason for Visit Diagnostic Test (Routine) - Closed Specialty Diagnoses / Procedures Referred By Contact Refer red To Contact Radiology Diagnoses Mass of upper lobe of left lung Bishop Kumari MD [facility] Rad Nuclear Med Procedures NM Etienne PET CT Skull Base to Mid-thigh [facility] [place] [address] [place] [address] Referral ID Status Reason Start Date Expiration Date Visits V isits Requested Authorized [id number] Closed Specialty 04/30/2022 06/14/2022 1 1 Service Requested Encounter Details Date Type Department Care Team Description 05/07/2022 Hospital Encounter Nuclear Medicine at [facility] , Canceled (P-PATIENT Rossy Anne MD ADMITTED/DELIVERED) [facility] [address] [place] THORACIC SURGERY [address] [place], [place] [phone] Social History Tobacco Use Types Packs/Day Years [...] gram Powder daily as needed. in Packet omeprazole (PriLOSEC) 40 Take 40 mg by [...] times daily for 7 days. mirtazapine (REMERON) 7.5 Take 1 tablet by 30 tablet 0 04/2305/17/2022 mg Tablet mouth nightly. LORazepam (Ativan) 1 [...] mg Tablet daily. Sustained Release 24 hr cloNIDine (Catapres) 0.1 Take 0.2 mg by 0 05/11/2022 mg Tablet mouth 2 times daily. ibuprofen (Advil) 200 mg Take 400 mg by 0 05/12/2022 Tablet mouth every 6 hours as needed for Pain. naproxen sodium (ALEVE) Take 220 mg by 0 05/12/2022 220 mg Capsule mouth 2 times daily as needed. divalproex EC (Depakote) Take 500 mg by 0 06/27/2022 500 mg Tablet, Delayed mouth 2 times Release (E.C.) daily. acetaminophen (TYLENOL) Take 2 tablets by 30 tablet 0 06/1706/04/2022 325 mg tablet mouth every 4 hours as needed for Pain. documented as of this encounter Plan of Treatment Upcoming Encounters Date Type Specialty Care Team Description 07/14/2022 Visit (TeleHealth) Palliative Care Kian Zelaya APRN [facility] PALLIATIVE MEDIC [place], [place] [address] (Wo rk) 07/22/2022 TH Visit (TeleHealth) Palliative Care Benoit Lei FISH CONSERVATIONIST [facility] [place] [address] Criselda Zelaya [facility] [place] [address] 08/12/2022 Office Visit Cardiology Hari Summers MD [facility] [place] [address] Kit Bonilla MD [facility] [place] [address] documented as of this encounter Visit Diagnoses Not on filedocumented in this encounter Care Teams Auto Polisher Relationship Specialty Start Date End Date Willam Waite MD PCP - General 03/24/22 6 [place] [address] documented as of this encounter
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
--- OUTSIDE RECORDS SUMMARY | 2022-07-12 08:56 | XMS_ITS | Encounter Summary ---
:1965 Author Organization [facility] Address [address] [place] [address] Care Team Providers Name Role Phone Willam Waite MD Primary Care Provider Reason for Referral Consultation (Routine) - Authorized Specialty Diagnoses / Procedures Referred By Contact Refer red To Contact Radiation Oncology Diagnoses Mass of upper lobe of left lung Non-small cell lung cancer (NSCLC) Richy Donald MD [facility] Rad Onc Office Procedures Simulation for Radiation Therapy Planning [facility] RADIATION ONCOLOGY [place], [place] [id number] [place] [phone] Phone: Fax: Referral ID Status Reason Start Date Expiration Visits Visits Date Requested Authorized [id number] Authorized Consult, 05/07/2022 08/05/2022 30 30 Test & Treat Encounter Details Date Type Department Care Team Description 05/07/2022 Orders Only Radiation Oncology at Richy Donald Mass of upper lobe of [facility] left lung [facility] [place] [place] [address] RADIATION ONCOLOGY [phone] [place], [place] [address] Social History Tobacco Use Types [...] APRN [facility], [place] [address] (Wo rk) 07/22/2022 TH Visit (TeleHealth) Palliative Care Benoit Lei RN STAFF [facility] [place] [address] Criselda Zelaya RN STAFF [facility] [place] [address] 08/12/2022 Office Visit Cardiology Hari Summers MD [facility] [place] [address] Kit Bonilla MD [facility] [place] [address] Scheduled Orders Name Type Priority Associated Diagnoses Order S chedule Simulation for Procedures Routine Mass of upper lobe of Orde red: 05/07/2022 Radiation Therapy left lung Planning documented as of this encounter Visit Diagnoses Diagnosis Mass of upper lobe of left lung documented in this encounter Care Teams Gateman Relationship Specialty Start Date End Date Willam Waite MD PCP - General 03/24/22 6 [place] [address] documented as of this encounter
--- OUTSIDE RECORDS SUMMARY | 2022-07-12 08:57 | XMS_ITS | Encounter Summary ---
:1965 Author Organization [facility] [place] [address] Care Team Providers Name Role Phone Willam Waite MD Primary Care Provider Reason for Visit Auth/Cert Specialty Diagnoses / Procedures Referred By Contact Refer red To Contact Diagnoses Other nonspecific abnormal finding of lung field LUNG MASS/ ROBOTIC BRONCH W EBUS/GA/ Bishop Marcum, [facility] Procedures PRO BRONCHOSCOPY RIGID FLEX W COMPUTER ASSIST IMG NAVIGATION PRO [facility] EBUS GUIDED SAMPL 3/> NODE STATION/STRUX BRONCHOSCOPY,RIGID OR FLEX,WITH IMAGE GUIDANCE ( ROBOT / MONARCH ) Jaqueline PALUMBO ENDOBRONCHIAL ULTR ASOUND (EBUS) GUIDED SAMPLING, 3+ NODES (WRVU 5.21) [facility] [place] [address] Referral ID Status Reason Start Date Expiration Date Visits Requ ested Visits Authorized [id number] 1 1 Encounter Details Date Type Department Care Team Description 04/29/2022 Anesthesia Event Gastroenterology at [facility] Roel Beltrán [facility] [place] [address] [facility] [phone] ANESTHESIOLOGY [place], [place] [address] Anesthesia Record Procedure Summary Procedure Name Responsible Anesthesia Start Anesthesia Stop Anesthesiologist Time Time BRONCH, W Roel Beltrán MD 04/29/22 1128 04/29/22 1246 ENDOBRONCHIAL ULTRASOUND (EBUS) GUIDED SAMPLING, 3+ NODES (WRVU 5.21) (N/A ) Events Date Time Event Comment 04/29/2022 1127 AN Verify 1128 Start 1128 An Start Data 1137 An Induction 1137 Anesthesia Ready 1140 An Intubation 1230 1245 Extubation/LMA Out 1246 an stop data 1246 Recovery or ICU Handoff Patient care was transferred to the destination unit staff after review of the patient's medica l history, current anesthetic/surgi tea status and plan, according to the Provider Handoff Checklist. 1246 Stop Name Total Propofol 430 mg Propofol INF 362.37 mg Dexmedetomidine 8 mcg PHENYLephrine 400 mcg Rocuronium 10 mg Neostigmine 3 mg Glycopyrrolate 0.4 mg lactated ringers infusion 1,000 mL Agents Name O2 Air N2O Sevoflurane (et) Blood No blood administrations on file. Lines, Drains, and Airways Type Details Placement Removal Incision 02/01/13; lumbar spine; 02/01/13 0000 by Clark, 05/08/22 1316 by 05/08/22; 1316 Rossy Langston RN Baldemar, Carla Starkey RN PIV 04/29/22; 1113; metacarpal 04/29/22 1113 by Laura ot, 04/29/22 1425 by Yael, vein (top of hand), right; ANA Morales RN qegl-cpt-zrikax catheter system; 22 gauge; KJ; 0; 04/29/22; 1425 Supraglottic Mask Ventilation: Not 04/29/22 1140 by Suleiman, 0 04/29/22 1245 by Attempted (0); LMA Type: Iban EMELNIA Kinney, Iban Kinney, ESTATE ATTORNEY air-Q; LMA Size: 4; Inserted by: Suleiman documented in this encounter Social History Tobacco [...] encounter OR Notes Anesthesia Postprocedure Evaluation - Roel Beltrán MD - 04/29/2022 3:19 PM EDT Department of Anesthesiology Post-procedure Note Patient: Iban Palomares Procedure Summary Date: 04/29/22 Room / Location: [facility] 1 / [facility] Anesthesia Start: 1128 Anesthesia Stop: 1246 Procedure: BRONCH, W ENDOBRONCHIAL ULTRASOUND (EBUS) GUIDED SAMPLING, 3+ NODES (WRVU 5.21) (N/A ) Diagnosis: Lung mass (LUNG MASS/ ROBOTIC BRONCH W EBUS/GA/ Backer) Surgeons: Antonio Jeronimo MD Responsible Provider: Roel Betlrán MD Anesthesia Type: general ASA Status: 3 All Anesthesia Providers: Anesthesiologist: Roel Beltrán MD ESTATE ATTORNEY: Iban Bearden CRNA Vitals Value Taken Time BP 152/111 04/29/22 1415 Temp Pulse Resp 40 04/29/22 1320 SpO2 100 % 04/29/22 1426 Pain Level 8 04/29/22 1415 Vitals shown include unvalidated device data. Patient Location: PACU/[facility] Level of Consciousness: Awake and Alert Pain Management: Satisfactory Analgesia PONV: None Cardiovascular Status: At Baseline and Hemodynamically Stable Respiratory Status: At Baseline and Room Air Postoperative Fluid Status: Intravascular EUvolemia Possible Anesthetic Complications: NONE apparent at time of evaluation Final Primary Anesthesia Type: General (The anesthetic type performed was the same as planned.) Comments: Roel Beltrán MD Anesthesia Preprocedure Evaluation - Roel Beltrán MD - 04/29/2022 12:29 PM EDT Pre-Anesthesia Evaluation for: Iban Palomares a 56 y.o. male. Procedure(s): BRONCH, W ENDOBRONCHIAL ULTRASOUND (EBUS) GUIDED SAMPLING, 3+ NODES (VU 5.21) Patient Active Problem List Diagnosis Date Noted ??? Mass of upper lobe of left lung 04/06/2022 ??? Hepatitis C, chronic 12/31/2011 ??? Lumbar disc herniation 05/04/2011 Past Medical History: Diagnosis Date ??? Asthma ??? Bipolar 1 disorder ??? COPD (chronic obstructive pulmonary disease) ??? Herniated disc ??? HTN (hypertension) Past Surgical History: Procedure Laterality Date ??? HAND SURGERY ??? HERNIA REPAIR ??? PRO LAMINOTOMY, LUMBAR DISK, 1 INTRSP 06/17/2011 LAMINOTOMY, DECOMPRESSION, FORAMINOTOMY, LUMBAR performed by ANDI NELSON at [facility] MAIN OR ??? PRO NEEDLE BIOPSY LIVER 12/22/2011 LIVER BIOPSY performed by RITA ORLANDO at [facility] ??? PRO REDO EXCIS LUMBAR DISC 02/01/2013 LAMINOTOMY W\DECOMPRESSION, ONE LVL, LUMBAR ,RE-EXPL (INCLDNG PART. FACETECTOMY, FORAMINOTOMY &\OR DISCECTOMY) performed by Andi Nelson MD at [facility] MAIN OR Social History Tobacco Use ??? Smoking status: Current Every Day Smoker Packs/day: 1.00 Years: 40.00 Pack years: 40.00 Types: Cigarettes ??? Smokeless tobacco: Never Used ??? Tobacco comment: 6 cigs daily Substance Use Topics ??? 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 Types: Benzodiazapines , Marijuana Comment: Current marijuana user; edibles Allergies Allergen Reactions ??? Fentanyl Nausea Only ??? Fluoxetine Other reaction(s): Other Medications: MAR and/or home medications have been reviewed. Physical Exam: Preprocedure Vitals Current as of 04/29/22 1128 BP: 172/124 Pulse: 78 Resp: 18 SpO2: 100 Temp: 36.9 ??C (98.5 ??F) Height: 180.3 cm (5' 11) (04/29/22) Weight: 77.1 kg (170 lb) (04/29/22) BMI: 23.71 IBW: 75.3 kg (165 lb 14.8 oz) Last edited 04/29/22 1103 by SARTHAK Airway Assessment: Mallampati: II TM distance: >3 FB Neck ROM: full Cardiovascular Assessment: system normal Pulmonary Assessment: pulmonary exam normal Dental Assessment: Misc Assessment: Last Filed Perioperative Cognitive Screening None Anesthesia Plan: ASA 3 general, with a(n) intravenous induction 56yo male presenting for EBUS No issues with prior anesthetics Appropriately npo Plan for [place] Region - Other Informed Consent: Anesthetic plan and risks discussed with patient. Plan discussed with ESTATE ATTORNEY. Anesthesia Screening documented in this encounter Plan of Treatment Upcoming Encounters Date Type Specialty Care Team Description 07/14/2022 Visit (TeleHealth) Palliative Care Kian Zelaya, [facility] PALLIATIVE MEDIC [facility] [place], [place] [address] (Wo rk) 07/22/2022 TH Visit (TeleHealth) Palliative Care Benoit Lei APRN [facility] [place] [address] Criselda Zelaya APRN [facility] [place] [address] 08/12/2022 Office Visit Cardiology Hari Summers [place] [facility] [place] [address] Kit Bonilla MD [facility] CARDIOLOGY DEPT [place], [place] [id number] documented as of this encounter Visit Diagnoses Not on filedocumented in this encounter Administered Medications Inactive Administered Medications - up to 3 most recent administrations Medication Order MAR Action Action Date Dose Rate Site dexmedeTOMIDine (Precedex) (4 Given 04/29/2022 12:18 PM EDT 8 mc g mcg/mL) bolus injection (Anesthsia) Intravenous, PRN, Starting on Deborah 04/29/22 at 1218, Until Deborah 04/29/22 at 1246, Anesthesia Intra-op, Routine glycopyrrolate (Robinul) (0.2 mg/mL) Given 04/29/2022 12:33 PM E DT 0.4 mg multi-dose injection Intravenous, PRN, Starting on Deborah 04/29/22 at 1233, Until Deborah 04/29/22 at 1246, Anesthesia Intra-op, Routine lactated ringers infusion New Bag 04/29/2022 12:37 PM EDT 100 mL/hr, Intravenous, CONTINUOUS, Starting on Deborah 04/29/22 at 1130, Until Deborah 04/29/22 at 1426, Endoscopy (Day of Procedure) New Bag 04/29/2022 11:30 AM EDT 100 mL/hr 100 mL/hr New Bag 04/29/2022 11:27 AM EDT neostigmine (Bloxiver) (1 mg/mL) injecti on Given 04/29/2022 12:33 PM EDT 3 mg Intravenous, PRN, Starting on Deborah 04/29/22 at 1233, Until Deborah 04/29/22 at 1246, Anesthesia Intra-op, Routine PHENYLephrine in NS (PF) (RADHA-SYNEPHRINE) Given 04/29/2022 12:24 PM EDT 80 mcg 0.8 mg/10 mL (80 mcg/mL) multi-dose injection Syrg Intravenous, PRN, Starting on Deborah 04/29/22 at 1215, Until Deborah 04/29/22 at 1246, Anesthesia Intra-op, Routine Given 04/29/2022 12:20 PM EDT 160 mcg Given 04/29/2022 12:15 PM EDT 160 mcg propofoL (Diprivan) (10 Rate/Dose 04/29/2022 12:25 50 mcg/kg/min 23. 13 mg/mL) infusion Change PM EDT mL/hr Intravenous, CONTINUOUS PRN, Starting on Deborah 04/29/22 at 1144, Until Deborah 04/29/22 at 1246, Anesthesia Intra-op, Routine New Bag 04/29/2022 11:44 AM EDT 100 mcg/kg/min 46.26 mL/hr propofoL (Diprivan) 10 mg/mL bolus injection Given 04/2022 12:34 PM EDT 30 mg (Anesthesia) Intravenous, PRN, Starting on Deborah 04/29/22 at 1137, Until Deborah 04/29/22 at 1246, Anesthesia Intra-op Given 04/29/2022 12:19 PM EDT 50 mg Given 04/29/2022 12:06 PM EDT 50 mg rocuronium (Zemuron) (10 mg/mL) multi-dose Given 04/29/2022 12:1 8 PM EDT 10 mg injection Intravenous, PRN, Starting on Deborah 04/29/22 at 1218, Until Deborah 04/29/22 at 1246, Anesthesia Intra-op, Routine documented in this encounter Care Teams Button Sewer Hand Relationship Specialty Start Date End Date Willam Waite MD PCP - General 03/24/2203 [address] [place] [phone] documented as of this encounter
--- OUTSIDE RECORDS SUMMARY | 2022-07-12 08:57 | XMS_ITS | Encounter Summary ---
:1965 Author Organization [facility] [place] [address] Care Team Providers Name Role Phone Willam Waite MD Primary Care Provider Encounter Details Date Type Department Care Team Description 05/03/2022 Telephone Pulmonology at [facility] Antonio Jeronimo MD [facility] [place] [address] PULMONARY MEDICINE [phone] [place], [place] [address] (Wo rk) Social History Tobacco [...] this encounter Miscellaneous Notes Telephone Encounter - Antonio Jeronimo MD - 05/03/2022 1:49 PM EDT Interventional Pulmonology Telephone Encounter: I called Mr. Iban Palomares on 05/03/2022 at 1:49 PM. We discussed the results from his recent bronchoscopy pertinent for NSCLC (favor adeno) from the ALBERTO mass. Lymphocytes from 11R, 7, 2R, 4L and 11L. This is likely T4 given the mediastinal invasion and I suspect there is direct invasion of 2L by CT/EBUS imaging. I will update his care team and next steps in management will be formulated. Referrals tomed/onc and rad/onc have previously been placed. Mr. Iban Palomares was provided ample time to ask questions which were answered to his liking. Home Phone [phone] Antonio Jeronimo MD, 05/03/2022, 1:49 PM Interventional Pulmonology Section of Pulmonary & Critical Care Pager: [phone] documented in this encounter Plan of Treatment Upcoming Encounters Date Type Specialty Care Team Description 07/14/2022 TH Visit (TeleHealth) Palliative Care Kian Zelaya APRN [facility] PALLIATIVE MEDIC [place], [place] [address] (Wo rk) 07/22/2022 TH Visit (TeleHealth) Palliative Care Benoit Lei [facility] [place] [address] Criselda Zelaya SUPERVISOR [employer] [facility] [place] [address] 08/12/2022 Office Visit Cardiology Hari Summers MD [facility] [place] [address] Kit Bonilla MD [facility] [address] documented as of this encounter Visit Diagnoses Not on filedocumented in this encounter Care Teams Labor Relations Director Relationship Specialty Start Date End Date Willam Waite MD PCP - General 03/24/22 6 [place] [phone] documented as of this encounter
--- OUTSIDE RECORDS SUMMARY | 2022-07-12 08:57 | XMS_ITS | Encounter Summary ---
:1965 Author Organization [facility] [place] [address] Care Team Providers Name Role Phone Willam Waite MD Primary Care Provider Encounter Details Date Type Department Care Team Description 04/08/2022 Telephone Thoracic Surgery at [facility] [place] [address] Social History Tobacco Use Types Packs/Day [...] Notes Telephone Encounter - Rickie Sharif - 04/08/2022 4:[address], MRI and Lab Orders to [facility] [phone]. documented in this encounter Plan of Treatment Upcoming Encounters Date Type Specialty Care Team Description 07/14/2022 TH Visit (TeleHealth) Palliative Care Kian Zelaya EXECUTIVE RECRU[employer] [facility] PALLIATIVE MEDIC [place], [place] [address] (Wo rk) 07/22/2022 TH Visit (TeleHealth) Palliative Care Benoit Lei EXECUTIVE RECRUITER [facility] [place] [address] Criselda Zelaya EXECUTIVE RECRUITER [facility] [place] [address] 08/12/2022 Office Visit Cardiology Hari Summers MD [facility] [place] [address] Kit Bonilla MD [facility] [place] [address] documented as of this encounter Visit Diagnoses Not on filedocumented in this encounter Care Teams Motor Generator Set Operator Relationship Specialty Start Date End Date Willam Waite MD PCP - General 03/24/22 6 [place] [address] documented as of this encounter
--- OUTSIDE RECORDS SUMMARY | 2022-07-12 08:57 | XMS_ITS | Encounter Summary ---
:1965 Author Organization [facility] [place] [address] Care Team Providers Name Role Phone Willam Waite MD Primary Care Provider Encounter Details Date Type Department Care Team Description 05/04/2022 Telephone Thoracic Surgery at [facility] Lotus Steven, [place] [address] Social History Tobacco Use Types Packs/Day [...] this encounter Miscellaneous Notes Telephone Encounter - Lotus Steven RN - 05/04/2022 10:01 AM EDT New patient of Dr. Kumari, first seen in clinic 04/06/2022. 56 y.o. 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 Phone call from patient and this morning with several concerns. Iban has been in pain for several months, but at this point it is getting worse. Chacon states that his normal reaction to things is usually frustration and anger, now he is weepy and emotional. He is able to take only Tylenol and Aleve for pain R/T h/o drug abuse. PCP will not assist with pain control R/T an issues with his opioid contract. He has been to the local ER, but no imaging or treatment was done there. They were referred back to pain management at [facility] this Tuesday05/07/2022. Patient is eating one meal or less per day with ongoing nausea/emesis most days. His fluid intake is minimal and he also reports little urine output. He has had a total weight loss from 193 lbs to 157.5 lbs over approximately the last 6-8 months. 13.5 lbs over the last 3.5 weeks. Ines also reports that even though he is skin and bones, his ankles are really swollen. Nursing concerns for dehydration, malnutrition and poor pain control. Unfortunately, surgical work up is not yet completed with CT W contrast still pending and PET scheduled for this Tuesday in [place]. Due to hydration/nutrition issues and poor urine output, I have recommended that Iban present to the ER for exam. Last CT was done as CTA PE protocol 03/23/2022. CT W contrast will likely be needed during ER work-up. They will need to arrange a ride and will call me when that is set up. Per covering thoracic surgery attending, patient is likely not a surgical candidate, if admitted he would be best served by medicine services and/or Oncology. documented in this encounter Plan of Treatment Upcoming Encounters Date Type Specialty Care Team Description 07/14/2022 TH Visit (TeleHealth) Palliative Care Kian Zelaya [facility] [facility] ER PALLIATIVE MEDIC [place], [place] [address] (Wo rk) 07/22/2022 TH Visit (TeleHealth) Palliative Care Benoit Lei [facility] [place] [address] Criselda Zelaya [employer] [facility] [place] [address] 08/12/2022 Office Visit Cardiology Hari Summers MD [facility] [place] [address] Kit Bonilla MD [facility] [place] [address] documented as of this encounter Visit Diagnoses Not on filedocumented in this encounter Care Teams Teletypesetter Monitor Relationship Specialty Start Date End Date Willam Waite MD PCP - General 03/24/22 6 [place] [address] documented as of this encounter
--- OUTSIDE RECORDS SUMMARY | 2022-07-12 08:57 | XMS_ITS | Encounter Summary ---
:1965 Author Organization [facility] [place] [address] Care Team Providers Name Role Phone Willam Waite MD Primary Care Provider Reason for Visit Auth/Cert Specialty Diagnoses / Procedures Referred By Contact Refer red To Contact Diagnoses Other nonspecific abnormal finding of lung field LUNG MASS/ ROBOTIC BRONCH W EBUS/GA/ Bishop Marcum, [facility] Procedures PRO BRONCHOSCOPY RIGID FLEX W COMPUTER ASSIST IMG NAVIGATION PRO [facility] EBUS GUIDED SAMPL 3/> NODE STATION/STRUX BRONCHOSCOPY,RIGID OR FLEX,WITH IMAGE GUIDANCE ( ROBOT / MONARCH ) Jaqueline PALUMBO ENDOBRONCHIAL ULTR ASOUND (EBUS) GUIDED SAMPLING, 3+ NODES (WRVU 5.21) [facility] [place] [address] Referral ID Status Reason Start Date Expiration Date Visits Requ ested Visits Authorized [id number] 1 1 Encounter Details Date Type Department Care Team Description 04/29/2022 Surgery Gastroenterology at [facility] Antonio Jeronimo, BRONCH W ENDOBRONCHIAL [facility] Chrissy arellano MD ULTRASOUND ([place]US) [place] [address] [facility] GUIDED SAMPLING, 3+ [phone] HORVATH (WRVU 5.21) PULMONARY MEDICINE [place], [place] [address] Social History Tobacco Use Types Packs/Day Years Used Date Current Every Day Smoker Cigarettes 1 40 Smokeless Tobacco: Never Used Tobacco Cessation: [...] Sign Reading Time Taken Comments Blood Pressure 172/124 04/29/2022 11:03 AM EDT Pulse 78 04/29/2022 11:03 AM EDT Temperature 36.9 ??C (98.5 ??F) 04/29/2022 11:03 AM EDT Respiratory Rate 30 04/29/2022 12:55 PM EDT Oxygen Saturation 100% 04/29/2022 11:03 AM EDT Inhaled Oxygen Concentration - - Weight 77.1 kg (170 lb) 04/29/2022 11:03 AM EDT Height 180.3 cm (5' 11) 04/29/2022 11:03 AM EDT Body Mass Index 23.71 04/29/2022 11:03 AM EDT documented in this encounter Discharge Instructions Discharge InstructionsDre Diaz RN - 04/29/2022 12:50 PM EDT Images from the original note were not included. Bronchoscopy: What to Expect at Home Your Recovery Bronchoscopy lets your doctor look at your airway through a tube called a bronchoscope. Afterward, you may feel tired for 1 or 2 days. Your mouth may feel very dry for several hours after the procedure. You may also have a sore throat and a hoarse voice for a few days. Sucking on throat lozenges or gargling with warm salt water may help soothe your sore throat. If a sample of tissue (biopsy) was taken, you may spit up a small amount of blood or have bloody saliva. This is normal. This care sheet gives you a general idea about how long it will take for you to recover. But each person recovers at a different pace. Follow the steps below to get better as quickly as possible. How can you care for yourself at home? Activity Rest when you feel tired. Getting enough sleep will help you recover. Avoid strenuous activities, such as bicycle riding, jogging, weight lifting, or aerobic exercise, until your doctor says it is okay. Diet You can eat your normal diet. If your stomach is upset, try bland, low-fat foods like plain rice, broiled chicken, toast, and yogurt. If it is painful to swallow, start out with cold drinks, flavored ice pops, and ice cream. Next, trysoft foods like pudding, yogurt, canned or cooked fruit, scrambled eggs, and mashed potatoes. Avoid eating hard or scratchy foods like chips or raw vegetables. Avoid orange or tomato juice and other acidic foods that can sting the throat. Drink plenty of fluids to avoid becoming dehydrated (unless your doctor tells you not to). Do not drink alcohol. Medicines Take pain medicines exactly as directed. If the doctor gave you a prescription medicine for pain, take it as prescribed. If you are not taking a prescription pain medicine, ask your doctor if you can take an ssno-kcc-nsuuenw medicine. If you think your pain medicine is making you sick to your stomach: Take your medicine after meals (unless your doctor has told you not to). Ask your doctor for a different pain medicine. If your doctor prescribed antibiotics, take them as directed. Do not stop taking them just because you feel better. You need to take the full course of antibiotics. Follow-up care is a clark part of your treatment and safety. Be sure to make and go to all appointments, and call your doctor if you are having problems. It's also a good idea to know your test results and keep a list of the medicines you take. Other instructions For your safety, do not drive or operate machinery until the medicine wears off and you can think clearly. Your doctor may tell you not to drive or operate machinery until the day after your test. Do not sign legal documents or make major decisions until the medicine wears off and you can think clearly. The anesthesia can make it hard for you to fully understand what you are agreeing to. Additional Information for Sedation Patients For patients who received sedation: You may have received medications before and/or during your procedure which effects your judgement and reaction time. Do not drive, operate machinery, drink alcoholic beverages or make important decisions for 24 hours. Be careful on stairs as you may be unsteady on your feet. Do not smoke if you are alone. IV site: Slight redness or tenderness is normal, you can use a warm compress if you would like. If tenderness and/or redness increase or if foul drainage occurs, please contact your Doctor. Please call [phone] before 8pm Mon-Fri with problems, questions or concerns. If you call after 8pm or on weekends, call the Hospital at [phone] and ask to speak to the Lumber Press Operator contracting manager and the steeping press operator will contact that person for you. When should you call for help? Call [phone] anytime you think you may need emergency care. For example, call if: You passed out (lost consciousness). You have sudden chest pain and shortness of breath. You cough up large amounts of bright red blood. You have severe pain in your chest. You have severe trouble breathing. Call your doctor now or seek immediate medical care if: You cough up more than a few tablespoons of blood. You have pain that does not get better after you take pain medicine. You have a fever over 100??F. You still sound hoarse after a few days. You have bubbles under the skin around the collarbone. These may crackle and pop when you press on them. Watch closely for changes in your health, and be sure to contact your doctor if you have any problems. Where can you learn more? [facility] View your After Visit Summary and more online at [email or web address] If you would like to provide feedback about your hospital experience, please call the Office of Patient and Family Relations at . If you have received this After Visit Summary in error, please immediately return it in person to the department, or notify the [facility] Privacy Office by calling toll free at between the hours of 8AM and 5PM to arrange for our retrieval of the documents at no cost to you. Content Version: 12.2 ?? [id number] [employer]. Care instructions adapted under license by [facility]. If you have questions about a medical condition or this instruction, always ask your healthcare professional. [employer] disclaims any warranty or liability for your use of this information. documented in this encounter Medications at Time of Discharge Medication Sig Dispensed Refills Start Date End Date omeprazole (PriLOSEC) 40 Take 40 mg by mouth 0 mg Capsule, Delayed daily. Release(E.C.) MULTIVITAMIN ORAL Take 1 tablet by 0 mouth daily. albuterol (PROVENTIL Inhale 2 puffs into 0 HFA;VENTOLIN HFA) 90 the lungs every 4 mcg/Actuation inhaler hours as needed. Use with spacer metoprolol succinate XL Take 25 mg by [...] Capsule mouth 2 times daily as needed. omeprazole (PriLOSEC) 10 Take 40 mg by mouth 0 05/05/2022 mg Capsule, Delayed daily. Release(E.C.) divalproex EC (Depakote) Take 500 mg by 0 06/27/2022 500 mg Tablet, Delayed mouth 2 times Release (E.C.) daily. acetaminophen (TYLENOL) Take 2 tablets by 30 tablet 0 06/1706/04/2022 325 mg tablet mouth every 4 hours as needed for Pain. documented as of this encounter Progress Notes Magnolia Conley RN - 04/29/2022 2:22 PM EDT complaints of 8/[address] Harrington called medicated with 15mg Toradol ivp and discharged documented in this encounter Miscellaneous Notes Op Note - Antonio Jeronimo MD - 04/29/2022 11:44 AM EDT Images from the original note were not included. INTERVENTIONAL PULMONOLOGY PROCEDURE NOTE SECTION OF PULMONARY & CRITICAL CARE MEDICINE Patient Name: Iban Palomares Patient Patient : 1965 Procedure Date: 04/29/2022 Procedure(s): A flexible bronchoscopy Airway examination EBUS-TBNA (6 sites(s)) Therapeutic suctioning Procedure Location: Endoscopy unit Indication: Lung mass Attending(s) of Record: Antonio Jeronimo MD Others Present: None Medications: General Anesthesia - See anesthesia flowsheet for details Sedation Time: Per anesthesia care provider Time Out: Performed The patient's medical record has been reviewed. The indication for the procedure was reviewed. The necessary history and physical examination was performed and reviewed. The risks, benefits and alternatives of the procedure were discussed with the patient in detail and he had the opportunity to ask questions. I discussed in particular the potential complications including risks of minor or life-threatening bleeding and/or infection, hemoptysis, fever, respiratory failure, voice hoarseness, pneumothorax, and discomfort. Sedation risks were also discussed including abnormal heart rhythms, low blood pressure, and respiratory failure. All questions were answered to the best of my ability. Informed consent was obtained. The proposed procedure and the patient's identification were verified prior to theprocedure by the physician and the nurse. After clinical evaluation and reviewing the indication, risks, alternatives and benefits of the procedure the patient was deemed to be in satisfactory condition to undergo the procedure. Procedure Descriptions: Airway Examination: An Olympus H190 flexible bronchoscope was used for the procedure. The bronchoscope was inserted through the LMA and inspection undertaken. A complete airway examination was performed from the glottis to the subsegmental level in each lobe of both lungs. Pertinent findings include normal bronchial anatomy, no endobronchial lesions and no secretions. EBUS-TBNA (6 lymph node stations): The Olympus EBUS ([id number]) scope was inserted, lymph node inspection undertaken and transbronchial needle aspiration obtained from the following stations using the Olympus [id number]-1 22 gauge TBNA needle: 1) Station 11Rs(superior) with 3 passes obtained with DIEGO present. [...] mass was identified at the proximal left l ateral tracheal border with 6 passes obtained with DIEGO present. Lesional cells identified. Abundantmaterial was collected in 10% neutral buffered formalin and sent for cytology review. Note, all mediastinal, hilar, lobar and segmental stations are evaluated during the procedure and those not listed were not biopsied due to small lymph node diameter, positive DIEGO on higher karina staging, alternative diagnosis or inability to continue with the procedure. Specifically, station 4R was not identified. Therapeutic Suctioning (15353): A significant portion of operative time was spent clearing out the airway of debris, blood and/or secretions prior to or during the intervention. Any disposable equipment was visually inspected and deemed to be intact immediately post procedure. Estimated Blood Loss: 5 mL Complications: None Relevant Pictures EBUS transtracheal needle aspiration ALBERTO mass Recommendations: ??? Successful flexible bronchoscopy and EBUS-TBNA (6 site(s)) ??? A post-procedural chest radiograph has been ordered ??? Await pending results in the next 3-5 business days ??? Follow-up with referring provider as previously arranged Antonio Jeronimo MD, 04/29/2022, 12:41 PM Interventional Pulmonology Section of Pulmonary & Critical Care Pager: [phone] documented in this encounter Plan of Treatment Upcoming Encounters Date Type Specialty Care Team Description 07/14/2022 TH Visit (TeleHealth) Palliative Care Kian Zelaya [facility] PALLIATIVE MEDIC [place], [place] [address] (Wo rk) 07/22/2022 TH Visit (TeleHealth) Palliative Care Benoit Lei [facility] [place] [address] Criselda Zelaya [facility] [place] [address] 08/12/2022 Office Visit Cardiology Hari Summers MD [facility] [place] [address] Kit Bonilla MD [facility] [place] [address] documented as of this encounter Procedures Procedure Name Priority Date/Time Associated Comments Diagnosis XR CHEST ONE VIEW STAT 04/29/2022 4:25 PM Resu lts for this EDT procedure are i n the results section. SOLID TUMOR NGS PANEL Routine 04/29/2022 12:41 PM EDT NON-SANITARY LANDFILL SUPERVISOR FINAL REPORT Routine 04/29/2022 12:41 Res ults for this PM EDT procedure are i n the results section. NON-SANITARY LANDFILL SUPERVISOR FINAL REPORT Routine 04/29/2022 12:41 Res ults for this PM EDT procedure are i n the results section. NON-SANITARY LANDFILL SUPERVISOR FINAL REPORT Routine 04/29/2022 12:41 Res ults for this PM EDT procedure are i n the results section. NON-SANITARY LANDFILL SUPERVISOR FINAL REPORT Routine 04/29/2022 12:41 Res ults for this PM EDT procedure are i n the results section. NON-SANITARY LANDFILL SUPERVISOR FINAL REPORT Routine 04/29/2022 12:41 Res ults for this PM EDT procedure are i n the results section. NON-SANITARY LANDFILL SUPERVISOR FINAL REPORT Routine 04/29/2022 12:41 Res ults for this PM EDT procedure are i n the results section. CYTOPATHOLOGY Routine 04/29/2022 12:41 [...] (EBUS) GUIDED SAMPLING, 3+ NODES (WRVU 5.21) documented in this encounter Results XR Chest One View (04/29/2022 4:25 PM EDT) Anatomical Region Laterality Modality Chest N/A Digital Radiography Specimen (Source) Anatomical Location Collection Method / Collectio n Time Received Time / Laterality Volume Impressions 04/29/2022 4:29 PM EDT No postbiopsy pneumothorax. New left greater than right lower lobe a irspace opacities. Cannot distinguish infectious from metastatic disease. Medial left apical soft tissue mass best characterized at CT scan. Thank you for letting us participate in the care of this patient. ??If you are a health care provider and have any questi ons regarding this report, please contact the number below. ??For patients who have questions please contact the health rn critical care that requested your imaging first. ? Electronically signed by: Catie Little MD , [facility] ([phone]), at 04/29/2022 4:29 PM Narrative 04/29/2022 4:29 PM EDT EXAMINATION: XR CHEST ONE VIEW CLINICAL HISTORY: s/p ALBERTO transtracheal biopsies; rule out pneumothorax TECHNIQUE: 1 view of the chest COMPARISON: CT scan March 23, 2022 FINDINGS: Apical bulla and cysts again noted. No p neumothorax. New airspace opacity at the left lower lung. New smaller similar opa city at the right lower lung. No pleural effusion. Cardiomediastinal silhouette u nchanged. Medial left apical soft tissue mass best characterized at CT scan. Procedure Note Catie Little MD - 04/29/2022 EXAMINATION: XR CHEST ONE VIEW CLINICAL HISTORY: s/p ALBERTO transtracheal biopsies; rule out pneumothorax TECHNIQUE: 1 view of the chest COMPARISON: CT scan March 23, 2022 FINDINGS: Apical bulla and cysts again noted. No p neumothorax. New airspace opacity at the left lower lung. New smaller similar opa city at the right lower lung. No pleural effusion. Cardiomediastinal silhouette u nchanged. Medial left apical soft tissue mass best characterized at CT scan. IMPRESSION No postbiopsy pneumothorax. New left greater than right lower lobe a irspace opacities. Cannot distinguish infectious from metastatic disease. Medial left apical soft tissue mass best characterized at CT scan. Thank you for letting us participate in the care of this patient. If you are a health care provider and have any questi ons regarding this report, please contact the number below. For patients w ho have questions please contact the health rn critical care that requested your imaging first. Electronically signed by: Catie Little MD , [facility] ([phone]), at 04/29/2022 4:29 PM Antonio Jeronimo MD IMG DX ORDERABLES Non-Calender Tender Final Report (04/29/2022 12:41 PM EDT) Component Value Ref Test Analysis Performed At [facility] Range Method Time Signature Non-Calender Tender [id number] ? Location: 4T; [facility]; Eric VELÁSQUEZ Final Report [place] The signing pathologist has (i) examined the relevant preparation(s) for the [facility] specimen(s) and (ii) rendered or confirmed the diagnosis(es) . [facility] . ? No n-Calender Tender Final DIAGNOSIS Negative for Malignancy Electronically signed by: ?Americo MCKEON, [facility] Verified: ??05/03/2022 13:47 ??Pathologist Performed at: ??-[facility] Dept. of Pathology, [place], [place] DISCUSSION Lymph node, station 2R ?? (EBUS-guided FNA): Lymphocytes are present, compatible with lymph node sampling . Negative for metastatic carcinoma. Cell block was examined. Clinical and radiologic correlation is recommended. CLINICAL INFORMATION Specimen Source : Lymph node, station 2R ?? (EBUS-guided FNA, assisted) Pertinent Clinical Data and Significant Therapy: 56 yo male w/ ALBERTO mass Clinical Impression : Possible cancer Pertinent Radiologic Findings ??: (not provided) Gross Description: Received in Formalin approxi mately 50 mL total volume of cloudy, colorless fluid, with dark flecks. Total Preparation: Diff-Quik 1; Pap Stain 1; Cell Block 1. Fine Needle Aspiration Immediate Assessment: Evaluation Episode #1 (1 slide): Adequate for final diagnosis. Lymphocytes present Immediate Assessment by: Ac Rodríguez MD. Note: The above attending cytopathologist personally exami katharine the Immediate Assessment slides and rendered the Imme diate Assessment. Such assessments are preliminary; see Diagnosis and Discussion for final interpr etation. Specimen (Source) Anatomical Collection Method Collection Time Re ceived Time Location / / Volume Laterality 04/29/2022 12:41 PM EDT Antonio Jeronimo MD PATHOLOGY/CYTOLOGY ORDERABLE S Performing Organization Address City/State/ZIP Code [place] [address] Non-Calender Tender Final Report (04/29/2022 12:41 PM EDT) Component Value Ref Test Analysis Performed At [facility] Range Method Time Signature Non-Calender Tender [id number] ? Location: 4T; EA08; A [place] Final Report [place] The signing pathologist has (i) examined the relevant preparation(s) for the [facility] specimen(s) and (ii) rendered or confirmed the diagnosis(es) . HOSPITAL LAB[facility]ORY . ? No n-Calender Tender Final DIAGNOSIS Negative for Malignancy Electronically signed by: ?Americo MCKEON, Rene Verified: ??05/03/2022 13:29 ??Pathologist Performed at: ??-[facility] Dept. of Pathology, [place], [place] DISCUSSION Lymph node, 11R (EBUS-guided FNA): Lymphocytes are present, compatible with lymph node sampling . Respiratory ??epithelial cells ??(likely procedural contam inant), are seen. Negative for metastatic carcinoma. Cell block was examined. Clinical and radiologic correlation is recommended. CLINICAL INFORMATION Specimen Source : Lymph node, 11R (EBUS-guided FNA, assisted) Pertinent Clinical Data and Significant Therapy: 56 yo male w/ ALBERTO mass Clinical Impression : Possible cancer Pertinent Radiologic Findings ??: (not provided) Gross Description: Received in Formalin, approx imately 50 mL total volume of cloudy, red fluid, with clots. Total Preparation: Diff-Quik 1; Pap Stain 1; Cell Block 1. Fine Needle Aspiration Immediate Assessment: Evaluation Episode #1 (1 slide): Adequate for final diagnosis. Lymphocytes ??present Immediate Assessment by: Bennett Rodríguez MD Note: The above attending cytopathologist personally exami katharine the Immediate Assessment slides and rendered the Imme diate Assessment. Such assessments are preliminary; see Diagnosis and Discussion for final interpr etation. Specimen (Source) Anatomical Collection Method Collection Time Re ceived Time Location / / Volume Laterality 04/29/2022 12:41 PM EDT Antonio Jeronimo MD PATHOLOGY/CYTOLOGY ORDERABLE S Performing Organization Address City/State/[place] [address] [facility] [address] Non-Calender Tender Final Report (04/29/2022 12:41 PM EDT) Component Value Ref Test Analysis Performed At [facility] gist Range Method Time Signature Non-Calender Tender [id number] ? Location: 4T; [facility]; [facility] Final Report [place] The signing pathologist has (i) examined the relevant preparation(s) for the [facility] specimen(s) and (ii) rendered or confirmed the diagnosis(es) . HOSPITAL LABORATORY . ? No n-Calender Tender Final DIAGNOSIS Negative for Malignancy Electronically signed by: ?Americo MCKEON, Rene Verified: ??05/03/2022 13:25 ??Pathologist Performed at: ??-[facility] Dept. of Pathology, [facility], [place], [place] DISCUSSION Lymph node, 11L (EBUS-guided FNA): Lymphocytes are present, compatible with lymph node sampling . Respiratory ??epithelial cells ??(likely procedural contam inant), are seen. Negative for metastatic carcinoma. Cell block was examined. Clinical and radiologic correlation is recommended. CLINICAL INFORMATION Specimen Source : Lymph node, 11L (EBUS-guided FNA, assisted) Pertinent Clinical Data and Significant Therapy: 56 yo male w/ ALBERTO mass Clinical Impression : Possible cancer Pertinent Radiologic Findings ??: (not provided) Gross Description: Received in Formalin, approx imately 50 mL total volume of cloudy, red fluid, with clots. Total Preparation: Diff-Quik 1; Pap Stain 1; Cell Block 1. Fine Needle Aspiration Immediate Assessment: Evaluation Episode #1 (1 slide): Inadequate for final diagnosis. Mostly blood Immediate Assessment by: Bennett Rodríguez MD Note: The above attending cytopathologist personally exami katharine the Immediate Assessment slides and rendered the Imme diate Assessment. Such assessments are preliminary; see Diagnosis and Discussion for final interpr etation. Specimen (Source) Anatomical Collection Method Collection Time Re ceived Time Location / / Volume Laterality 04/29/2022 12:41 PM EDT Antonio Jeronimo MD PATHOLOGY/CYTOLOGY ORDERABLE S Performing Organization Address City/State/[place] [address] Non-Calender Tender Final Report (04/29/2022 12:41 PM EDT) Component Value Ref Test Analysis Performed At [facility] gist Range Method Time Signature Non-Calender Tender Final [id number] ? Location: 4T; EA08; A [place] Simone [place] The signing pathologist has (i) examined the relevant preparation(s) for the [facility] specimen(s) and (ii) rendered or confirmed the diagnosis(es) . HOSPITAL LABORATORY . ? No n-Calender Tender Final DIAGNOSIS Negative for Malignancy Electronically signed by: ?Americo MCKEON, Rene Verified: ??05/03/2022 13:12 ??Pathologist Performed at: ??-[facility] Dept. of Pathology, [place], [place] DISCUSSION Lymph node, station 7 (EBUS-guided FNA): Fragments of lymphoid tissue present, compatible with lymph node sampling. Respiratory ??epithelial cells ??(likely procedural contam inant), are seen. Negative for metastatic carcinoma. Clinical and radiologic correlation is recommended. CLINICAL INFORMATION Specimen Source : Lymph node, station 7 (EBUS-guided FNA) Pertinent Clinical Data and Significant Therapy: 56 yo male w/ ALBERTO mass Clinical Impression : Possible cancer Pertinent Radiologic Findings ??: (not provided) Gross Description: Received ??in Formalin appro ximately 50 mL total volume of ?? cloudy, bloody fluid, with clots. Total Preparation: Cell Block 1. Specimen (Source) Anatomical Collection Method Collection Time Re ceived Time Location / / Volume Laterality 04/29/2022 12:41 PM EDT Antonio Jeronimo MD PATHOLOGY/CYTOLOGY ORDERABLE S Performing Organization Address City/State/[place] [address] Non-Calender Tender Final Report (04/29/2022 12:41 PM EDT) Component Value Ref Test Analysis Performed At [facility] gist Range Method Time Signature Non-Calender Tender [id number] ? Location: 4T; EA08; [facility] Final Report [place] The signing pathologist has (i) examined the relevant preparation(s) for the [facility] specimen(s) and (ii) rendered or confirmed the diagnosis(es) . HOSPITAL LABORATORY . ? No n-Calender Tender Final DIAGNOSIS Negative for Malignancy Electronically signed by: ?Americo MCKEON, Rene Verified: ??05/03/2022 12:51 ??Pathologist Performed at: ??-[facility] [place], [place], [place] DISCUSSION Lymph node, station 4L ?? (EBUS-guided FNA): Lymphocytes are present, compatible with lymph node sampling . Respiratory ??epithelial cells ??(likely procedural contam inant), are seen. Negative for metastatic carcinoma. Cell block was examined. Clinical and radiologic correlation is recommended. CLINICAL INFORMATION Specimen Source : Lymph node, station 4L ?? (EBUS-guided FNA, assisted) Pertinent Clinical Data and Significant Therapy: 56 yo male w/ ALBERTO mass Clinical Impression : Possible cancer Pertinent Radiologic Findings ??: (not provided) Gross Description: Received in Formalin approxi mately 50 mL total volume of cloudy, pink fluid, with clots. Total Preparation: Diff-Quik 2; Pap Stain 2; Cell Block 1. Fine Needle Aspiration Immediate Assessment: Evaluation Episode #1 (1 slide): Inadequate for final diagnosis. Respiratory epithelial cells present. Evaluation Episode #2 (1 slide): Adequate for final diagnosis. Lymphocytes present. Immediate Assessment by: Ac Rodríguez MD. Note: The above attending cytopathologist personally exami katharine the Immediate Assessment slides and rendered the Imme diate Assessment. Such assessments are preliminary; see Diagnosis and Discussion for final interpr etation. Specimen (Source) Anatomical Collection Method Collection Time Re ceived Time Location / / Volume Laterality 04/29/2022 12:41 PM EDT Antonio Jeronimo MD PATHOLOGY/CYTOLOGY ORDERABLE S Performing Organization Address City/State/[place] [address] Non-Calender Tender Final Report (04/29/2022 12:41 PM EDT) Component Value Ref Test Analysis Performed At [facility] gist Range Method Time Signature Non-Calender Tender [id number] ? Location: 4T; EA08; A [facility] Final Report [place] The signing pathologist has (i) examined the relevant preparation(s) for the [facility] specimen(s) and (ii) rendered or confirmed the diagnosis(es) . HOSPITAL LABORATORY . ? Addendum ADDENDUM DISCUSSION Tissue: ??Lung, left (EBUS-guided FNA) - Non-small cell carcinoma, ?? favor adenocarcinoma Tumor Proportion Score (TPS): ?% Expression: 5-10% Interpretation Table: PD-L1 assay (22C3 pharmDX) for Keytruda Tumor Proportion Score (TPS): ? <1% ?PD-L1 Negative ? >=1% ? PD-L1 Expression Immunohistochemical assay wa s performed on paraffin-embedded tissue sections fixed in 10% neutral buffered for fanny for 6-72 hours using the polymer system technique with appropriate controls. The assay was performed according to the preschool assistant principal's instructions using Anti-PD-L1 (22C3, pharmDX) antibody. Electronically signed by: ?Denia Sullivan MD Verified: ??05/17/2022 11:47 ??Pathologist Performed at: ??-[facility]. of [place], [place], [place] ? No n-Calender Tender Final DIAGNOSIS Positive for Malignancy Electronically signed by: ?Rene Driscoll MD Verified: ??05/03/2022 12:40 ??Pathologist Performed at: ??-[facility] Dept. of Pathology, [place], [place] DISCUSSION Lung, left ??(EBUS-guided FNA): Non-small cell carcinoma, ?? favor adenocarcinoma (see note) . Note: The lesional cells are immunoreactive for ?TTF1-DAKO; they are negative for synaptophysin. Rare cells s how positive staining for p40. The immunostain findings support the diagnosis. Special stain for mucicarmine (with appropriate controls) - positive for intracytoplasmic mucin in lesional cells. PD-L1 immunohistochemistry has been ordered; the resul t will be issued in an addendum. Molecular studies are being ordered; results will be issued in a molecular pathology report. --- Immunohistochemistry Studies --- Interpretation: See note. . DISCUSSION ? Immunohistochemical a ssays were performed (on paraffin-embedded cell block sections fixed in 10% neutr al buffered formalin for 6-72 hours) using the polymer technique with appropriate controls. The sections are studied for ? TTF1- DAKO, p40 and synaptophysin . These immunohistochemical st udies provide ancillary information and are used only in conjunction with standard diagnostic procedures. (Cell block was examined.) CLINICAL INFORMATION Specimen Source : Lung, left ??(EBUS-guided FNA, assisted) Pertinent Clinical Data and Significant Therapy: 56 yo male w/ ALBERTO mass Clinical Impression : Possible cancer Pertinent Radiologic Findings ??: (not provided) Gross Description: Received in Formalin approxi mately 50 mL total volume of cloudy, red fluid, with clots. Total Preparation: Diff-Quik 1; Pap Stain 1; Cell Block 1. Fine Needle Aspiration Immediate Assessment: Evaluation Episode #1 (1 slide): Adequate for final diagnosis. Highly atypical epithelial cells present. Immediate Assessment by: Ac Rodríguez MD. Note: The above attending cytopathologist personally exami katharine the Immediate Assessment slides and rendered the Imme diate Assessment. Such assessments are preliminary; see Diagnosis and Discussion for final interpr etation. Specimen (Source) Anatomical Collection Method Collection Time Re ceived Time Location / / Volume Laterality 04/29/2022 12:41 PM EDT Antonio Jeronimo MD PATHOLOGY/CYTOLOGY ORDERABLE S Performing Organization Address [facility] [place] [address] Solid Tumor NGS Panel (04/29/2022 12:41 PM EDT) Specimen Anatomical Collection Method Collection Time Receive d Time (Source) Location / / Volume Laterality Tissue 04/29/2022 12:41 05/05/2022 8:54 PM EDT AM EDT Resulting Agency Comment Spec In Lab Antonio Jeronimo MD PATHOLOGY/CYTOLOGY ORDERABLE S Performing Organization Address [facility] Phon e Number [address] Cytopathology Non-Gynecological (04/29/2022 12:41 PM EDT) Specimen Anatomical Collection Method Collection Time Receive d Time (Source) Location / / Volume Laterality AP Specimen 04/29/2022 12:41 04/29/2022 PM EDT 12:41 PM EDT Narrative [facility] - 04/29/2022 12:41 PM EDT Specimen requisition ordered. ??Separate Pathology report to follow Antonio Jeronimo MD PATHOLOGY/CYTOLOGY ORDERABLE S Performing Organization Address [facility] [place] [address] Cytopathology Non-Gynecological (04/29/2022 12:41 PM EDT) Specimen Anatomical Collection Method Collection Time Receive d Time (Source) Location / / Volume Laterality AP Specimen 04/29/2022 12:41 04/29/2022 PM EDT 12:41 PM EDT Narrative [facility] - 04/29/2022 12:41 PM EDT Specimen requisition ordered. ??Separate Pathology report to follow Antonio Jeronimo MD PATHOLOGY/CYTOLOGY ORDERABLE S Performing Organization Address City/[facility]/ZIP Code Phon e Number [address] Cytopathology Non-Gynecological (04/29/2022 12:41 PM EDT) Specimen Anatomical Collection Method Collection Time Receive d Time (Source) Location / / Volume Laterality AP Specimen 04/29/2022 12:41 04/29/2022 PM EDT 12:41 PM EDT Narrative [facility] - 04/29/2022 12:41 PM EDT Specimen requisition ordered. ??Separate Pathology report to follow Antonio Jeronimo MD PATHOLOGY/CYTOLOGY ORDERABLE S Performing Organization Address City/[facility]/ZIP Code Phon e Number [address] Cytopathology Non-Gynecological (04/29/2022 12:41 PM EDT) Specimen Anatomical Collection Method Collection Time Receive d Time (Source) Location / / Volume Laterality AP Specimen 04/29/2022 12:41 04/29/2022 PM EDT 12:41 PM EDT Narrative [facility] - 04/29/2022 12:41 PM EDT Specimen requisition ordered. ??Separate Pathology report to follow Antonio Jeronimo MD PATHOLOGY/CYTOLOGY ORDERABLE S Performing Organization Address City/[facility]/ZIP Code Phon e Number [address] Cytopathology Non-Gynecological (04/29/2022 12:41 PM EDT) Specimen Anatomical Collection Method Collection Time Receive d Time (Source) Location / / Volume Laterality AP Specimen 04/29/2022 12:41 04/29/2022 PM EDT 12:41 PM EDT Narrative [facility] - 04/29/2022 12:41 PM EDT Specimen requisition ordered. ??Separate Pathology report to follow Antonio Jeronimo MD PATHOLOGY/CYTOLOGY ORDERABLE S Performing Organization Address City/[facility]/[place] [address] Cytopathology Non-Gynecological (04/29/2022 12:41 PM EDT) Specimen Anatomical Collection Method Collection Time Receive d Time (Source) Location / / Volume Laterality AP Specimen 04/29/2022 12:41 04/29/2022 PM EDT 12:41 PM EDT Narrative [facility] - 04/29/2022 12:41 PM EDT Specimen requisition ordered. ??Separate Pathology report to follow Antonio Jeronimo MD PATHOLOGY/CYTOLOGY ORDERABLE S Performing Organization Address City/[facility] [place] [address] documented in this encounter Visit Diagnoses Diagnosis Lung mass Swelling, mass, or lump in chest documented in this encounter Administered Medications Inactive Administered Medications - up to 3 most recent administrations Medication Order MAR Action Action Date Dose Rate Site ketorolac (Toradol) (30 mg/mL) Given 04/29/2022 2:30 PM EDT 15 m g injection 15 mg 15 mg, Intravenous, ONCE, 1 dose, On Deborah 04/29/22 at 1430, Routine lactated ringers infusion New Bag 04/29/2022 12:37 PM EDT 100 mL/hr, Intravenous, CONTINUOUS, Starting on Deborah 04/29/22 at 1130, Until Deborah 04/29/22 at 1426, Endoscopy (Day of Procedure) New Bag 04/29/2022 11:30 AM EDT 100 mL/hr 100 mL/hr New Bag 04/29/2022 11:27 AM EDT documented in this encounter Active and Recently Administered Medications Times are shown in EDT. Scheduled Medication Order 04/27/2022 04/28/2022 04/29/2022 acetaminophen (Tylenol) tablet 975 mg 1430 (Due) 975 mg, Oral, ONCE, 1 dose, On Deborah 2 at 1430, Maximum dose of acetaminophen is 4000 mg from all sources in 24 hours. When ordered for pain, acetaminophen should be given even when other ordered pain medications are indicated. , Routine ketorolac (Toradol) (30 mg/mL) injection 15 mg (COMPLETED) 1430 (Given - Provider: Magnolia Conley, RN) 15 mg, Intravenous, ONCE, 1 dose, On Deborah 04/29/22 at 1430, Routine Continuous Medication Order 04/27/2022 04/28/2022 04/29/2022 lactated ringers infusion (CANCELED) 1127 (New Bag - Provider: Iban Bearden CRNA)1130 (New Bag - Provider: Socorro Banks, ANA)1203 (Canceled Entry - Provider: Iban Bearden CRNA - Comment: Switch to gravity)1204 (Canceled Entry - Provider: Iban Bearden CRNA) 100 mL/hr, Intravenous, CONTINUOUS, Star ting on Deborah 04/29/22 at 1130, Until Deborah 04/29/22 at 1426, Endoscopy (Day of Procedure) 1236 (Paused - Provider: Iban Bearden CRNA - Comment: Switch to gravity)1237 (New Bag - Provider: Iban Bearden CRNA) documented in this encounter Care Teams Inspector Tool Relationship Specialty Start Date End Date Willam Waite MD PCP - General 03/24/2203 [address] [place] [phone] documented as of this encounter
--- OUTSIDE RECORDS SUMMARY | 2022-07-12 08:57 | XMS_ITS | Encounter Summary ---
:1965 Author Organization [facility] [place] [address] Care Team Providers Name Role Phone Willam Waite MD Primary Care Provider Encounter Details Date Type Department Care Team Description 04/20/2022 Telephone [place] [facility] [place] [phone] Social History Tobacco Use Types Packs/Day [...] Palliative Care Kian Zelaya APRN [facility] PALLIATIVE MEDIC [place], [place] [address] (Wo rk) 07/22/2022 TH Visit (TeleHealth) Palliative Care Benoit Lei MANAGER CARDIAC [facility] [place] [address] Criselda Zelaya MANAGER CARDIAC [facility] [place] [address] 08/12/2022 Office Visit Cardiology Hari Summers MD [facility] [place] [address] Kit Bonilla MD [facility] [place] [address] documented as of this encounter Visit Diagnoses Not on filedocumented in this encounter Care Teams Grocery Clerk Relationship Specialty Start Date End Date Willam Waite MD PCP - General 03/24/22 [address] [place] [address] documented as of this encounter
--- OUTSIDE RECORDS SUMMARY | 2022-07-12 08:57 | XMS_ITS | Encounter Summary ---
:1965 Author Organization [facility] [place] [address] Care Team Providers Name Role Phone Willam Waite MD Primary Care Provider Encounter Details Date Type Department Care Team Description [facility] [address] [phone] Social History Tobacco Use [...] Notes Telephone Encounter - Halle Horta - 04/08/2022 2:31 PM EDT I called Ines with Miladys appointment time and date. She was fine with this however she said that Iban walked out of his PCP apointment yesterday 04-07-22 and she hasnt seen him sence. He told her he was done with everything because he couldnt get pain medication from his PCP. Ines said she would givehim time to cool down she knows where he is at. Then she would let us know if he wanted to come in or if he did not want to come in. documented in this encounter Plan of Treatment Upcoming Encounters Date Type Specialty Care Team Description 07/14/2022 TH Visit (TeleHealth) Palliative Care Kian Zelaya APRN [facility] PALLIATIVE MEDIC [place], [place] [address] (Wo rk) 07/22/2022 TH Visit (TeleHealth) Palliative Care Benoit Lei APRN [facility] [place] [address] Criselda Zelaya APRN [facility] [place] [address] 08/12/2022 Office Visit Cardiology Hari Summers MD [facility] [place] [address] Kit Bonilla MD [facility] [place] [address] documented as of this encounter Visit Diagnoses Not on filedocumented in this encounter Care Teams Market Garden Worker Relationship Specialty Start Date End Date Willam Waite MD PCP - General 03/24/22 6 [place] [phone] documented as of this encounter
--- OUTSIDE RECORDS SUMMARY | 2022-07-12 08:57 | XMS_ITS | Encounter Summary ---
:1965 Author Organization [facility] [place] [address] Care Team Providers Name Role Phone Willam Waite MD Primary Care Provider Reason for Visit Auth/Cert Specialty Diagnoses / Procedures Referred By Contact Refer red To Contact Diagnoses Other nonspecific abnormal finding of lung field LUNG MASS/ ROBOTIC BRONCH W EBUS/GA/ Bishop Marcum, [facility] Procedures PRO BRONCHOSCOPY RIGID FLEX W COMPUTER ASSIST IMG NAVIGATION PRO [facility] EBUS GUIDED SAMPL 3/> NODE STATION/STRUX BRONCHOSCOPY,RIGID OR FLEX,WITH IMAGE GUIDANCE ( ROBOT / MONARCH ) BRONCH, W ENDOBRONCHIAL ULTR ASOUND (EBUS) GUIDED SAMPLING, 3+ NODES (WRVU 5.21) [facility] [place] [address] Referral ID Status Reason Start Date Expiration Date Visits Requ ested Visits Authorized [id number] 1 1 Encounter Details Date Type Department Care Team Description 04/29/2022 Hospital Encounter Gastroenterology at [facility] Antonio Jeronimo, [facility] [place] [address] [facility] [phone] CENTER PULMONARY [place], [place] [address] Social History Tobacco Use Types [...] Sign Reading Time Taken Comments Blood Pressure 152/111 04/29/2022 2:15 PM EDT Pulse 78 04/29/2022 11:03 AM EDT Temperature 36.9 ??C (98.5 ??F) 04/29/2022 11:03 AM EDT Respiratory Rate 40 04/29/2022 1:20 PM EDT Oxygen Saturation 100% 04/29/2022 2:15 PM EDT Inhaled Oxygen Concentration - - [...] your doctor if you can take an nsrp-qrz-pijucqz medicine. If you think your pain medicine [...] occurs, please contact your Doctor. Please call [phone] before 8pm Mon-Fri with problems, questions or concerns. If you call after 8pm or on weekends, call the Hospital at [phone] and ask to speak to the Power Lineman epoxy fabrication supervisor and the scale and skip car operator will contact that person for you. When should you call for help? Call 911 anytime you think you may need emergency [...] any problems. Where can you learn more? [facility] View your After Visit Summary and more online at [email or web address] If you would like to provide feedback about your hospital experience, please call the Office of Patient and Family Relations at . If you have received this After Visit Summary in error, please immediately return it in person to the department, or notify the Count Includes [facility] Privacy Office by calling toll free at between the hours of 8AM and 5PM to arrange for our retrieval of the documents at no cost to you. Content Version: 12.2 ?? [id number] [employer]. Care instructions adapted under license by [facility]. If you have questions about a medical condition or this instruction, always ask your healthcare professional. [employer] disclaims any warranty or liability for your [...] (6 lymph node stations): The Olympus EBUS ([id number]) scope was inserted, lymph node inspection undertaken [...] station 4R was not identified. Therapeutic Suctioning (26627): A significant portion of operative time was [...] Section of Pulmonary & Critical Care Pager: [phone] documented in this encounter Plan of Treatment Upcoming Encounters Date Type Specialty Care Team Description 07/14/2022 TH Visit (TeleHealth) Palliative Care Kian Zelaya [facility] PALLIATIVE MEDIC [place], [place] [address] (Wo rk) 07/22/2022 TH Visit (TeleHealth) Palliative Care Benoit Lei [facility] [place] [address] Crisel[place] Zelaya [facility] [place] [address] 08/12/2022 Office Visit Cardiology Hari Summers MD [facility] [place] [address] Kit Bonilla MD [facility] [address] documented as of this encounter Procedures Procedure Name Priority Date/Time Associated Comments Diagnosis XR CHEST ONE VIEW STAT 04/29/2022 4:25 PM Resu lts for this EDT procedure are i n the results section. SOLID TUMOR NGS PANEL Routine 04/29/2022 12:41 PM EDT NON-AGILE JAVA DEVELOPER FINAL REPORT Routine 04/29/2022 12:41 Res ults for this PM EDT procedure are i n the results section. NON-AGILE JAVA DEVELOPER FINAL REPORT Routine 04/29/2022 12:41 Res ults for this PM EDT procedure are i n the results section. NON-AGILE JAVA DEVELOPER FINAL REPORT Routine 04/29/2022 12:41 Res ults for this PM EDT procedure are i n the results section. NON-AGILE JAVA DEVELOPER FINAL REPORT Routine 04/29/2022 12:41 Res ults for this PM EDT procedure are i n the results section. NON-AGILE JAVA DEVELOPER FINAL REPORT Routine 04/29/2022 12:41 Res ults for this PM EDT procedure are i n the results section. NON-AGILE JAVA DEVELOPER FINAL REPORT Routine 04/29/2022 12:41 Res ults [...] who have questions please contact the health med care manager that requested your imaging first. ? Electronically signed by: Catie Little MD , [facility] ([phone]), at 04/29/2022 4:29 PM Narrative 04/29/2022 4:29 [...] ho have questions please contact the health med care manager that requested your imaging first. Electronically signed by: Catie Little MD , [facility] ([phone]), at 04/29/2022 4:29 PM Antonio Jeronimo MD IMG DX ORDERABLES Non-Oil Well Engineer Final Report (04/29/2022 12:41 PM EDT) Component Value Ref Test Analysis Performed At [facility] Range Method Time Signature Non-Oil Well Engineer [id number] ? Location: 4T; EA; [facility] Final Report [place] The signing pathologist has (i) examined the relevant preparation(s) for the [facility] specimen(s) and (ii) rendered or confirmed the diagnosis(es) . HOSPITAL LABORATORY . ? No n-Oil Well Engineer Final DIAGNOSIS Negative for Malignancy Electronically signed by: ?Americo MCKEON, [facility] Verified: ??05/03/2022 13:47 ??Pathologist Performed at: ??-[facility] Dept. of Pathology, [place], [place] DISCUSSION Lymph node, station 2R ?? [...] Address City/State/ZIP [place] [address] [facility] [address] Non-Oil Well Engineer Final Report (04/29/2022 12:41 PM EDT) Component Value Ref Test Analysis Performed At [facility] gist Range Method Time Signature Non-Oil Well Engineer [id number] ? Location: 4T; EA08; A [place] Final Report [place] The signing pathologist has (i) examined the relevant preparation(s) for the [facility] specimen(s) and (ii) rendered or confirmed the diagnosis(es) . HOSPITAL LABORATORY . ? No n-Oil Well Engineer Final DIAGNOSIS Negative for Malignancy Electronically signed by: ?Rene Driscoll MD Verified: ??05/03/2022 13:29 ??Pathologist Performed at: ??-[facility] Dept. of Pathology, [place], [place] DISCUSSION Lymph node, 11R (EBUS-guided FNA): [...] Address City/State/ZIP [place] [address] Non-Oil Well Engineer Final Report (04/29/2022 12:41 PM EDT) Component Value Ref Test Analysis Performed At [facility] gist Range Method Time Signature Non-Oil Well Engineer [id number] ? Location: 4T; EA08; A [facility] Final Report [place] The signing pathologist has (i) examined the relevant preparation(s) for the [facility] specimen(s) and (ii) rendered or confirmed the diagnosis(es) . HOSPITAL LABORATORY . ? No n-Oil Well Engineer Final DIAGNOSIS Negative for Malignancy Electronically signed by: ?Americo MCKEON, Rene Verified: ??05/03/2022 13:25 ??Pathologist Performed at: ??-[facility] Dept. of Pathology, [place], [place] DISCUSSION Lymph node, 11L (EBUS-guided FNA): [...] Organization Address City/State/[place] [address] Non-Oil Well Engineer Final Report (04/29/2022 12:41 PM EDT) Component Value Ref Test Analysis Performed At [facility] gist Range Method Time Signature Non-Oil Well Engineer Final [id number] ? Location: 4T; EA08; A [facility] The signing pathologist has (i) examined the relevant preparation(s) for the [facility] specimen(s) and (ii) rendered or confirmed the diagnosis(es) . HOSPITAL LABORATORY . ? No n-Oil Well Engineer Final DIAGNOSIS Negative for Malignancy Electronically signed by: ?Americo MCKEON, Rene Verified: ??05/03/2022 13:12 ??Pathologist Performed at: ??-[facility] Dept. of Pathology, [place], [place] DISCUSSION Lymph node, station 7 (EBUS-guided [...] Address City/State/ZIP [place] [address] [facility] [address] Non-Oil Well Engineer Final Report (04/29/2022 12:41 PM EDT) Component Value Ref Test Analysis Performed At [facility] Range Method Time Signature Non-Oil Well Engineer [id number] ? Location: 4T; EA08; A [place] Final Report [place] The signing pathologist has (i) examined the relevant preparation(s) for the [facility] specimen(s) and (ii) rendered or confirmed the diagnosis(es) . HOSPITAL LABORATORY . ? No n-Oil Well Engineer Final DIAGNOSIS Negative for Malignancy Electronically signed by: ?Rene Driscoll MD Verified: ??05/03/2022 12:51 ??Pathologist Performed at: ??-[facility] Dept. of Pathology, [place], [place] DISCUSSION Lymph node, station 4L ?? [...] Address City/State/ZIP Code Phon e Number [place] [id number] HOSPITAL LAB[address]ORY [address] Non-Oil Well Engineer Final Report (04/29/2022 12:41 PM EDT) Component Value Ref Test Analysis Performed At [facility] gist Range Method Time Signature Non-Oil Well Engineer [id number] ? Location: 4T; EA08; A [place] Final Report [place] The signing pathologist has (i) examined the relevant preparation(s) for the [facility] specimen(s) and (ii) rendered or confirmed the [...] The assay was performed according to the waste hand's instructions using Anti-PD-L1 (22C3, pharmDX) antibody. Electronically signed by: ?Denia Sullivan MD Verified: ??05/17/2022 11:47 ??Pathologist Performed at: ??-[facility] Dept. of Pathology, [place], [place] ? No n-Oil Well Engineer Final DIAGNOSIS Positive for Malignancy Electronically signed by: ?Rene Driscoll MD Verified: ??05/03/2022 12:40 ??Pathologist Performed at: ??-[facility] Dept. of Pathology, [place], [place] DISCUSSION Lung, left ??(EBUS-guided FNA): Non-small [...] MD PATHOLOGY/CYTOLOGY ORDERABLE S Performing Organization Address [facility] Phon e Number [address] Solid Tumor NGS Panel (04/29/2022 12:41 PM EDT) Specimen Anatomical Collection Method Collection Time Receive d Time (Source) Location / / Volume Laterality Tissue 04/29/2022 12:41 05/05/2022 8:54 PM EDT AM EDT Resulting Agency Comment Spec In Lab Antonio Jeronimo MD PATHOLOGY/CYTOLOGY ORDERABLE S Performing Organization Address [facility]/ZIP Code Phon e Number [address] Cytopathology Non-Gynecological (04/29/2022 12:41 PM EDT) Specimen Anatomical Collection Method Collection Time Receive d Time (Source) Location / / Volume Laterality AP Specimen 04/29/2022 12:41 04/29/2022 PM EDT 12:41 PM EDT Narrative [facility] LABORAT ORY - 04/29/2022 12:41 PM EDT Specimen requisition ordered. ??Separate Pathology report to follow Antonio Jeronimo MD PATHOLOGY/CYTOLOGY ORDERABLE S Performing Organization Address [facility] Phon e Number [address] Cytopathology Non-Gynecological (04/29/2022 12:41 PM EDT) Specimen Anatomical Collection Method Collection Time Receive d Time (Source) Location / / Volume Laterality AP Specimen 04/29/2022 12:41 04/29/2022 PM EDT 12:41 PM EDT Narrative [facility] - 04/29/2022 12:41 PM EDT Specimen requisition ordered. ??Separate Pathology report to follow Antonio Jeronimo MD PATHOLOGY/CYTOLOGY ORDERABLE S Performing Organization Address City/[facility]/[place] [address] Cytopathology Non-Gynecological (04/29/2022 12:41 PM EDT) Specimen Anatomical Collection Method Collection Time Receive d Time (Source) Location / / Volume Laterality AP Specimen 04/29/2022 12:41 04/29/2022 PM EDT 12:41 PM EDT Narrative [facility] - 04/29/2022 12:41 PM EDT Specimen requisition ordered. ??Separate Pathology report to follow Antonio Jeronimo MD PATHOLOGY/CYTOLOGY ORDERABLE S Performing Organization Address City/[facility]/ZIP Code Phon e Number [address] Cytopathology Non-Gynecological (04/29/2022 12:41 PM EDT) Specimen Anatomical Collection Method Collection Time Receive d Time (Source) Location / / Volume Laterality AP Specimen 04/29/2022 12:41 04/29/2022 PM EDT 12:41 PM EDT Narrative [facility] - 04/29/2022 12:41 PM EDT Specimen requisition ordered. ??Separate Pathology report to follow Antonio Jeronimo MD PATHOLOGY/CYTOLOGY ORDERABLE S Performing Organization Address City/State/ZIP Code Phon e Number [address] Cytopathology Non-Gynecological (04/29/2022 12:41 PM EDT) Specimen Anatomical Collection Method Collection Time Receive d Time (Source) Location / / Volume Laterality AP Specimen 04/29/2022 12:41 04/29/2022 PM EDT 12:41 PM EDT Narrative [facility] - 04/29/2022 12:41 PM EDT Specimen requisition ordered. ??Separate Pathology report to follow Antonio Jeronimo MD PATHOLOGY/CYTOLOGY ORDERABLE S Performing Organization Address City/State/[place] [address] Cytopathology Non-Gynecological (04/29/2022 12:41 PM EDT) Specimen Anatomical Collection Method Collection Time Receive d Time (Source) Location / / Volume Laterality AP Specimen 04/29/2022 12:41 04/29/2022 PM EDT 12:41 PM EDT Narrative [facility] LAB[facility]AT [facility] - 04/29/2022 12:41 PM EDT Specimen requisition ordered. ??Separate Pathology report to follow Antonio Jeronimo MD PATHOLOGY/CYTOLOGY ORDERABLE S Performing Organization Address City/[facility] [place] [address] documented in this encounter [...] (COMPLETED) 1430 (Given - Provider: Magnolia Conley, ANA) 15 mg, Intravenous, ONCE, 1 dose, On Deborah 04/29/22 at 1430, Routine Continuous Medication Order 04/27/2022 04/28/2022 04/29/2022 lactated ringers infusion (CANCELED) 1127 (New Bag - Provider: Iban Bearden CRNA)1130 (New Bag - Provider: Socorro Banks RN)1203 (Canceled Entry - Provider: Iban Bearden CRNA [...] CRNA) documented in this encounter Care Teams Painter Shipyard Relationship Specialty Start Date End Date Willam Waite MD PCP - General 03/24/22 6 [place] [address] documented as of this encounter
--- OUTSIDE RECORDS SUMMARY | 2022-07-12 08:57 | XMS_ITS | Encounter Summary ---
:1965 Author Organization [facility] [place] [address] Care Team Providers Name Role Phone Willam Waite MD Primary Care Provider Reason for Visit Reason Onset Date Comments Pre Procedure Call 04/28/2022 Bronchoscopy Encounter Details Date Type Department Care Team Description 04/28/2022 Telephone Pulmonology at [facility] Mara Richardson, Pre Procedure Call [facility] Chrissy arellano RN (Bronchoscopy) [place] [address] Social History Tobacco Use Types Packs/Day [...] this encounter Miscellaneous Notes Telephone Encounter - Mara Richardson RN - 04/28/2022 9:49 AM EDT Made scheduled call to review instructions prior to interventional pulmonary procedure: 1. [x] Informed patient of date, time, and location of procedure or pre- procedure imaging or tests as applicable. Rescheduled bronchoscopy with EBUS to 04/29/2022 at 12:00 in Endo under [place] with Dr. Jeronimo. Arrive at4T at 11:00 to check in. Procedure is scheduled for 60 minutes. 2. [x] Informed patient they must have compactor driver who accompanies them into , if asked for a code at the entrance tell them 5533. -[place], 3. [x] Reviewed home oxygen or ventilation use: [x] Patient not on home ventilator or oxygen [] Patient is on home oxygen and/or ventilator (document amount and type of oxygen device): [] Patient confirms they will bring necessary supplies for transport to and from [] Patient identifies this potential supply issue: Will document and contact their DME for assistance. 4. [x] Medication review: Confirm any new medications since last seen in Pulmonary. Only need to review blood thinners, insulin and rescue inhaler. [x] Patient has rescue inhaler (e.g., albuterol) and will bring to procedure pt has albuterol [x] Anticoagulation and anti-platelet therapy reviewed: [x] No anticoagulation or anti-platelet therapy [] Patient will hold anticoagulation or anti-platelet therapy as directed (See IP job aid for standard instructions or MD note for special instructions) [x] Insulin use reviewed: [x] No insulin therapy [] Patient taking insulin: Instructed to take half of long acting dose, and NOT take short acting dose morning of procedure [x] Patient understands they are to take all other medications the day of procedure unless specifically addressed 5. [x] NPO instructions reviewed with patient: Do not have anything to eat after midnight the day of your procedure. You are permitted to have any amount of clear liquids up to two hours before your scheduled procedure. This includes water, aj martha, apple juice, black coffee or tea. Sugar or sugarsubstitutes are fine in your coffee or tea, however you are not permitted to have any dairy products(or dairy substitutes) after midnight. You can not have any milk, cream, or creamers (regardless if dairy-free or not). Failure to abide to these instructions may result in cancellation of your procedure. Okay to take small sips of water to take allowed medications. 6. [x] COVID screening [x] Patient denies current symptoms or exposures as per most recent COVID Screening Job Aid 7. Other questions addressed during this call: N/A AVERY Carrillo, RN Department of Pulmonary 5C, [facility] Pager: [phone] documented in this encounter Plan of Treatment Upcoming Encounters Date Type Specialty Care Team Description 07/14/2022 Visit (TeleHealth) Palliative Care Kian Zelaya APRN [facility] PALLIATIVE MEDIC [place], [place] [address] (Wo rk) 07/22/2022 TH Visit (TeleHealth) Palliative Care Benoit Lei APRN [facility] [place] [address] Criselda Zelaya APRN [facility] [place] [address] 08/12/2022 Office Visit Cardiology Hari Summers MD [facility] [place] [address] Kit Bonilla MD [facility] [place] [address] documented as of this encounter Visit Diagnoses Not on filedocumented in this encounter Care Teams Investigations Consultant Relationship Specialty Start Date End Date Willam Waite MD PCP - General 03/24/22 6 [place] [address] documented as of this encounter
--- OUTSIDE RECORDS SUMMARY | 2022-07-12 08:57 | XMS_ITS | Encounter Summary ---
:1965 Author Organization [facility] [place] [address] Care Team Providers Name Role Phone Willam Waite MD Primary Care Provider Encounter Details Date Type Department Care Team Description 05/03/2022 Telephone Pulmonology at [facility] Antonio Jeronimo MD [place] [address] PULMONARY MEDICINE [phone] [place], [place] [address] (Wo rk) Social History Tobacco [...] Encounter - Antonio Jeronimo MD - 05/03/2022 11:28 AM EDT Interventional Pulmonology Telephone Encounter: I called Mr. Iban Palomares on 05/03/2022 at 11:28 AM. Discussed the chest pain and dyspnea he has been experiencing. He was clear with me that these symptoms were NOT secondary to the biopsies he had with me last week but are a continuation of the same symptomatology he has been experiencing PRE biopsy. He continues to have small volume hemoptysis which is not changed in frequency or volume as compared to PRE biopsy. I told him this was likely related to his underlying malignancy and that we were discussing as a group how to best approach his care in the most expeditious fashion possible/that otherswould be in touch to discuss next steps. All questions were answered and he was appreciative of the call. Home Phone [phone] Antonio Jeronimo MD, 05/03/2022, 11:28 AM Interventional Pulmonology Section of Pulmonary & Critical Care Pager: [phone] documented in this encounter Plan of Treatment Upcoming Encounters Date Type Specialty Care Team Description 07/14/2022 TH Visit (TeleHealth) Palliative Care Kian Zelaya APRN [facility] PALLIATIVE MEDIC [place], [place] [address] (Wo rk) 07/22/2022 TH Visit (TeleHealth) Palliative Care Benoit Lei [facility] [place] [address] Criselda Zelaya [facility] [place] [address] 08/12/2022 Office Visit Cardiology Hari Summers MD [place] [address] Kit Bonilla MD [facility] [place] [address] documented as of this encounter Visit Diagnoses Not on filedocumented in this encounter Care Teams Outpatient Admitting Clerk Relationship Specialty Start Date End Date Willam Waite MD PCP - General 03/24/22 6 [place] [id number] documented as of this encounter
--- OUTSIDE RECORDS SUMMARY | 2022-07-12 08:57 | XMS_ITS | Encounter Summary ---
:1965 Author Organization [facility] [place] [address] Care Team Providers Name Role Phone Willam Waite MD Primary Care Provider Encounter Details Date Type Department Care Team Description 04/30[facility]2022 [facility] [place] [phone] Social History Tobacco Use Types Packs/Day [...] this encounter Miscellaneous Notes Telephone Encounter - Iris Gorman RN - 04/30/2022 3:13 PM EDT Radiation Oncology Nurse Telephone Note [facility]- [place], [place] ----- Message from Elena Shore sent at 04/30/2022 12:09 PM EDT ----- Iban called in today stating that he is 7-8/10 pain, says that he can't take much more when he lays down it is much worse. It looks like he is a [facility] pt in [place] and saw here only one day, he will be seeing in [place]. He was looking to see about getting pain meds but I do not see any in his chart Best call back [phone] Telephone call to above number. It went unanswered to voice mail. I called 2nd time and left messageexplaining that it is important that he call [phone] as directed on his AVS instructions from his bronchoscopy instructions yesterday at [facility]. Dr Jeronimo informed via this note. documented in this encounter Plan of Treatment Upcoming Encounters Date Type Specialty Care Team Description 07/14/2022 TH Visit (TeleHealth) Palliative Care Kian Zelaya, [facility] PALLIATIVE MEDIC [place], [place] [address] (Wo rk) 07/22/2022 TH Visit (TeleHealth) Palliative Care Benoit Lei, [facility] [place] [address] Criselda Zelaya [facility] [place] [address] 08/12/2022 Office Visit Cardiology Hari Summers [place] [facility] [place] [address] Kit Bonilla MD [facility] [address] documented as of this encounter Visit Diagnoses Not on filedocumented in this encounter Care Teams Supervisor Agricultural Education Relationship Specialty Start Date End Date Willam Waite MD PCP - General 03/24/22 6 [place] [address] documented as of this encounter
--- OUTSIDE RECORDS SUMMARY | 2022-07-12 08:57 | XMS_ITS | Encounter Summary ---
:1965 Author Organization [facility] [place] [address] Care Team Providers Name Role Phone Willam Waite MD Primary Care Provider Encounter Details Date Type Department Care Team Description 04/16/2022 Telephone Pulmonology at [facility] [place] [address] Social History Tobacco Use Types Packs/Day [...] Visit (TeleHealth) Palliative Care Kian Zelaya APRN [facility] PALLIATIVE MEDIC [place], [place] [address] (Wo rk) 07/22/2022 TH Visit (TeleHealth) Palliative Care Benoit Lei RESIDENTIAL [place] [employer] [place] [address] Criselda Zelaya RESIDENTIAL [place] [employer] [place] [address] 08/12/2022 Office Visit Cardiology Hari Summers [place] [address] [facility] [place] [address] documented as of this encounter Visit Diagnoses Not on filedocumented in this encounter Care Teams Painting Instructor Relationship Specialty Start Date End Date Willam Waite MD PCP - General 03/24/22 6 [place] [address] documented as of this encounter
--- OUTSIDE RECORDS SUMMARY | 2022-07-12 08:57 | XMS_ITS | Encounter Summary ---
:1965 Author Organization [facility] [place] [address] Care Team Providers Name Role Phone Willam Waite MD Primary Care Provider Encounter Details Date Type Department Care Team Description 04/20/2022 Notes Only Pulmonology at [facility] [place] [address] Social History Tobacco Use Types Packs/Day [...] documented as of this encounter Progress Notes Fifi Cole RN - 04/20/2022 1:26 PM EDT Pt is scheduled for a bronchoscopy in the OR on 04/27/22 ?? I have??reviewed??Pt's chart. Pt not on any blood thinner at this time. ?? Pt currently NOT on home oxygen. ?? Same Day program??nurse??to contact Pt for a more detailed instructions on his Bronchoscopy.? Fifi Cole RN Department of Pulmonary 5C, [facility] ?? / Pager: [phone] documented in this encounter Plan of Treatment Upcoming Encounters Date Type Specialty Care Team Description 07/14/2022 TH Visit (TeleHealth) Palliative Care Kian Zelaya APRN [facility] PALLIATIVE MEDIC [place], [place] [address] (Wo rk) 07/22/2022 TH Visit (TeleHealth) Palliative Care Benoit Lei APRN [facility] [place] [address] Criselda Zelaya APRN [facility] [place] [address] 08/12/2022 Office Visit Cardiology Hari Summers MD [facility] [place] [address] Kit Bonilla MD [facility] [address] documented as of this encounter Visit Diagnoses Not on filedocumented in this encounter Care Teams Work Counselor Relationship Specialty Start Date End Date Willam Waite MD PCP - General 03/24/22 [address] [place] [address] documented as of this encounter
--- OUTSIDE RECORDS SUMMARY | 2022-07-12 08:57 | XMS_ITS | Encounter Summary ---
:1965 Author Organization [facility] [place] [address] Care Team Providers Name Role Phone Willam Waite MD Primary Care Provider Reason for Visit Reason Comments Shortness of Breath Lung cancer, left side tumor Chest Pain Auth/Cert Specialty Diagnoses / Procedures Referred By Contact Refer red To Contact Diagnoses Lung mass Valerie Wiggins [facility] Procedures [place] [address] Referral ID Status Reason Start Date Expiration Date Visits Requ ested Visits Authorized [id number] 1 1 Encounter Details Date Type Department Care Team Description 05/06/2022 Surgery Gastroenterology at [facility] Heladio Woods, EGD, UPPER GI [facility] [place] [address] [facility] [phone] [place], [place] [address] Social History Tobacco Use Types [...] place to sleep or slept in a mcfp (including now)? Sex Assigned at Date Recorded Male 05/04/2022 4:12 PM EDT documented as of this encounter Last Filed Vital Signs Vital Sign Reading Time Taken Comments Blood Pressure 144/95 05/06/2022 11:10 AM EDT Pulse 69 05/06/2022 9:27 AM EDT Temperature 36.4 ??C (97.5 ??F) 05/06/2022 9:27 AM EDT Respiratory Rate 16 05/06/2022 11:10 AM EDT Oxygen Saturation 94% 05/06/2022 11:15 AM EDT Inhaled Oxygen Concentration - - [...] control. PCP Contact Information: Willam Waite MD [facility] [phone] Pending Studies and Lab Data: none The [...] simulation for radiation therapy was initiated on 05/10. ?? #Pain control #Substance use disorder [...] Important Studies and Lab Data: Recent Labs 05/12/22 0617 05/11/22 0450 05/10/22 0252 WBC 13.5* 9.5 9.3 HGB 13.8 13.2* 12.8* HCT 40.1* 39.4* 38.1* PLATELET 248 256 264 Recent Labs 05/12/22 0617 05/11/22 0450 05/10/22 0252 NA 138 139 139 K 4.6 4.6 4.6 CL 103 103 106 CO2 26 27 26 BUN 19 25* 24* CREATININE 0.73* 0.86 0.80 Recent Labs 05/11/22 0450 BILITOT <0.2* AST 35 ALT 47 ALKPHOS [...] who have questions please contact the health child care specialist that requested your imaging first. Electronically signed by: Bishop Cota DO, [facility] ([phone]), at 05/04/2022 3:[address] Chest w Contrast (Exam End: 05/04/2022 [...] who have questions please contact the health child care specialist that requested your imaging first. Electronically signed by: Jose Juan Singh MD, [facility] ([phone]), at 05/04/2022 7:36 PM MRI Cervical Spine wwo Contrast (Exam End: 05/04/2022 [...] who have questions please contact the health child care specialist that requested your imaging first. Electronically signed by: Armando Duvall MD, [facility] ([phone]), at 05/05/2022 2:48 AM MRI Thoracic Spine wwo Contrast (Exam End: 05/04/2022 [...] who have questions please contact the health child care specialist that requested your imaging first. Electronically signed by: Armando Duvall MD, [facility] ([phone]), at 05/05/2022 2:48 AM MRI Brain wwo Contrast (Generic) (Exam End: 05/05/2022 [...] who have questions please contact the health child care specialist that requested your imaging first. Electronically signed by: Bishop Otto, [facility] ([phone]), at 05/05/2022 10:[address] Abdomen & Pelvis w Contrast (Exam End: 05/05/2022 11:27 AM) Impression No metastatic disease identified in the abdomen and pelvis. Thank you for letting us participate in the care of this patient. If you are a health care provider and have any questions regarding this report, please contact the number below. For patients who have questions please contact the health child care specialist that requested your imaging first. Electronically signed by: Katlyn Pfeiffer MD, [facility] ([phone]), at 05/05/2022 1:45 PM MRI Brachial Plexus w Contrast Left (Exam End: [...] who have questions please contact the health child care specialist that requested your imaging first. Electronically signed by: Darwin Braden MD, [facility] ([phone]), at 05/08/2022 9:[address] Rad Onc Chest Interp Only (Exam End: [...] who have questions please contact the health child care specialist that requested your imaging first. Electronically signed by: Bishop Cota DO, [facility] ([phone]), at 05/11/2022 7:39 AM Discharge Condition: Stable Discharge to: home with [...] 30 tablet Refills: 0 naloxone 4 mg/actuation Hollenberg Commonly known as: Narcan 1 each by [...] Horton APRN; Kanu Ash MD Hematology/Oncology at [facility] Arrive at: [facility] door at end of hallway [phone] 05/17/2022 11:00 AM [facility] IN[facility]ION, ROOM Hematology Oncology at [facility] Arrive at: [facility] door at end of hallway [phone] 05/17/2022 2:30 PM Criselda Zelaya APRN Palliative Medicine at [facility] Arrive at: Home [phone] Questionnaire(s): To complete any questionnaires for this visit, click here, or visit this website:[email or web address] To view instructions for your video visit, click here, or visit this website: [email or web address] If you have not previously downloaded the [facility] patient portal software, Fanattac, or the Zoom rossana, please do so by clicking one of these links below or searching in your device's rossana store. For all desktops/laptops; for Android devices; for Apple/iOS devices FAQs: Join Video Visit button not connecting? - This may be due to pop-up blockers. - Click this link to see: How to Disable Pop-Up Block for myD-H Video Visits Zoom asking for a meeting password? - Exit out of the Zoom program and try the link again 05/18/2022 4:00 PM [facility] RAD/ONC, TREATMENT Radiation Oncology at [facility] Arrive at: [facility] door at end of hallway [phone] 05/24/2022 1:30 PM Tami Horton APRN Hematology[facility]cology at [facility] at end of hallway [phone] 05/24/2022 2:00 PM [facility] INFUSION, ROOM Hematology Oncology at [facility] Arrive at: [facility] door at end of hallway [phone] 05/25/2022 1:30 PM PFT ROOM 2 Pulmonology at [facility] Arrive at: [employer] Worker Area [phone] 05/25/2022 2:30 PM Bishop Kumari MD Thoracic Surgery at [facility] Arrive at: [employer] Worker Area [phone] 05/31/2022 8:30 AM Tami Horton APRN Hematology/Oncology at [facility] Arrive at: [facility] door at end of hallway [phone] 05/31/2022 9:00 AM [facility] INFUSION, ROOM Hematology [facility] at [facility] at [facility] of [facility] [phone] 06/07/2022 9:30 AM Tami Horton APRN; Kanu Ash MD Hematology/Oncology at [facility] Arrive at: [facility] door at end of hallway [phone] 06/07/2022 10:00 AM [facility] INFUSION, ROOM Hematology Oncology at [facility] Arrive at: [facility] door at end of hallway [phone] 06/14/2022 9:00 AM Tami Horton APRN; Kanu Ash MD Hematology/Oncology at [facility] Arrive at: [facility] door at end of hallway [phone] 06/14/2022 9:30 AM [facility] INFUSION, ROOM Hematology Oncology at [facility] Arrive at: [facility] door at end of hallway [phone] 06/21/2022 9:30 AM Tami Horton APRN; Kanu Ash MD Hematology/Oncology at [facility] Arrive at: [facility] door at end of hallway [phone] 06/21/2022 10:00 AM [facility] INFUSION, ROOM Hematology Oncology at [facility] Arrive at: [facility] door at end of hallway [phone] General Instructions Substance Use Treatment, Harm-Reduction, and Relapse Prevention Resources Residential Treatment: [address] [id number] Intensive Outpatient Program: [address] [phone] Individual Counseling: [address] [address] Geraldine Mccollum, [facility] [address] [facility] [address] [place] [address] Ariella Finnegan, SIZE TESTER [address], [place] Offers EMDR Therapy You may also search www.psychologytoday.com or [employer] for therapists in your area. EMDR Therapy [...] completed in fewer sessions than other psychotherapies. www.emdria.org/ebboq-ydcg-bpfcpmy/ Medication Assisted Therapy: [address] [place] [address] [place] [address] Peer Support Groups Alcoholics Anonymous (AA) [place]: , www.APRaa.net Narcotics Anonymous (NA) [place]: , www.gmana.org Community Peer Support [facility] [address] [place] [address] Online AA and NA Meetings AA, NA, Refuge Recovery, SMART Recovery www.DataEmail Group AA Video Meetings www.aa-intergroup.org/directory_audio-video.php AA Text Chat Meetings www.aa.intergroup.org/directory.php NA Video Meetings www.Invupna.org/meetings NA Text Chat Meetings Www.Glossi, IncaloneTheRanking.comub.org SMART Recovery Meetings via Zoom 5:00-6:00pm, free and open to all To join Zoom meetin. Visit www.AdCamp 2. Click on calendar on top of toolbar 3. Find the correct meeting date and time 4. Click the zoom link and enter password provided Additional Substance Use Treatment Resources Www.vtaddictionservices.org www.healthvermont.gov/alcohol-drugs www.jontvyf646.org/ (Search for Substance Use) www.psychologytoday.com/ Www.rethinkingdrinking.niaaa.nih.gov/ www.samhsa.gov/orlpvpzpff-kveqyypg-wtlpktzwt/fhsbtzgjjjad-qjzwpsi-larj/treatment -practitioner-desktop technician Mental Health Crisis [facility] Crisis Line: Dial 988 www.[facility].gov/find-help/982 Harm-Reduction Resources Mobile [employer]. For more information about receiving supplies: including syringe exchange, fentanyl test strips, and naloxone, or to schedule an appointment: [place] clients call and leave a message for Tami (ext. 105) or Eric Gonzalez (ext. 104). [place] clients call to speak with Eric Leonard [...] is being approved. Online Stress Reduction Resources www.[facility]/videos-features/videos/ooneaohvk-uidxkwdyi-6-7-8-breath/ www.Applied Visual Sciences/2012/sxqwwqacm-yegufpcpi-ugmqzaa-moment/ www.Hiddenbed/ www.[facility].HealthSpot/ www.Glossi, Inc.org/ Employment Agency [employer] [address] [place] [address]. [address] [place] [address] Providing an opportunity for successful employment and [...] 30 tablet Refills: 0 naloxone 4 mg/actuation Hollenberg Commonly known as: Narcan 1 each by [...] Provider Department Center 05/17/2022 10:00 AM Kanu sAh MD J Hem Off [facility] 05/17/2022 11:00 AM [facility] INFUSION, ROOM STJ Hem Inf [facility] 05/17/2022 2:30 PM Criselda Zelaya APRN [facility] PALL 5B [facility] 05/18/2022 4:00 PM STJ RAD/ONC, TREATMENT STJ Rad Trt [facility] 05/24/2022 1:30 PM Tami Horton APRN [facility] Hem Off [facility] 05/24/2022 2:00 PM [facility] INFUSION, ROOM STJ Hem Inf [facility] 05/25/2022 1:30 PM [facility]FT ROOM 2 [facility] 05/25/2022 2:30 PM Bishop Kumari MD [facility] THOR 3K [facility] 05/31/2022 8:30 AM Tami Horton APRN [facility] Hem Off [facility] 05/31/2022 9:00 AM [facility] INFUSION, ROOM STJ Hem Inf [facility] 06/07/2022 9:30 AM Kanu Ash MD ST[facility] Hem Off [facility] 06/07/2022 10:00 AM [facility] INFUSION, ROOM [facility] Hem Inf [facility] 06/14/2022 9:00 AM Kanu Ash MD STJ Hem Off [facility] 06/14/2022 9:30 AM [facility] INFUSION, ROOM STJ Hem Inf [facility] 06/21/2022 9:30 AM Kanu Ash MD ST[facility] Hem Off [facility] 06/21/2022 10:00 AM [facility] INFUSION, ROOM [facility] Hem [facility] You have a telephone appointment with the Palliative Care team on 05/17 at 2:30PM. A nurse from [facility] will also call to check in with you later this week. Finally, you will be contacted by the Radiation Oncology and/or Medical Oncology departments to coordinate your treatment schedule. Please callthese offices if you have not been contacted by the end of this week. Your Inpatient Medical Team at [facility] Name(s) of your inpatient provider(s): Belen Malagon MD; Jeff Bains MD; Fifi Bishop MD; LUCY Hernandes Your Primary Care Provider: Willam Waite MD [phone] For questions regarding this document or issues relating to this hospitalization on the Medical Service, please contact your inpatient physician through the [facility] Power Plant Operations Manager . Issues after hours and on weekends will be handled by the Hospitalist staff on-call. documented in this encounter Discharge Instructions Discharge InstructionsLance Camarena, HOG FEEDER - 05/06/2022 9:52 AM EDT Substance Use Treatment, Harm-Reduction, and Relapse Prevention Resources Residential Treatment: [address] [id number] Intensive Outpatient Program: [address] [phone] Individual Counseling: [address] [address] Geraldine Mccollum, [facility] [address] [facility] [place], [place] [id number] Ariella Finnegan, [facility] [address], [place] Offers EMDR Therapy You may also search www.psychologytoday.Firebase or [employer] for therapists in your area. EMDR Therapy [...] completed in fewer sessions than other psychotherapies. www.emdria.org/kzbfk-hanc-dcxqkzw/ Medication Assisted Therapy: [address] [place] [address] [place] [address] Peer Support Groups Alcoholics Anonymous (AA) [place]: , www.nhaa.net Narcotics Anonymous (NA) [place]: , www.gmana.org Community Peer Support Center [address] [address] Online AA and NA Meetings AA, NA, Refuge Recovery, SMART Recovery www.DataEmail Group AA Video Meetings www.aa-intergroup.org/directory_audio-video.php AA Text Chat Meetings www.aa.intergroup.org/directory.php NA Video Meetings www.virtual-na.org/meetings NA Text Chat Meetings Www.neveraloneclub.org SMART Recovery Meetings via Zoom 5:00-6:00pm, free and open to all To join Zoom meeting: Visit www.AdCamp Click on calendar on top of toolbar Find the correct meeting date and time Click the zoom link and enter password provided Additional Substance Use Treatment Resources Www.vtaddictionservices.org www.healthvermont.gov/alcohol-drugs www.[place] [address].org/ (Search for Substance Use) www.psychologyVoyat.com/ Www.rethinkingdrinking.niaaa.nih.gov/ www.samhsa.gov/ilmezbiazu-mxwcauxt-oylpvzqcg/xwzvyozutjgy-izayank-grqj/treatment -practitioner-desktop technician Mental Health Crisis [facility] Crisis Line: Dial 988 www.[facility].gov/find-help/982 Harm-Reduction Resources Mobile operations. For more information about receiving supplies: including syringe exchange, fentanyl test strips, and naloxone, or to schedule an appointment: [place] clients call and leave a message for Tami (ext. 105) or Eric Gonzalez (ext. 104). [place] clients call to speak with Eric Leonard [...] is being approved. Online Stress Reduction Resources www.[facility]/videos-features/videos/vfeidzkhj-xmwpywhix-9-7-8-breath/ www.VerticalResponse.org/2012/byhesywmq-wcyndsqqb-wlfrjqn-moment/ www.Hiddenbed/ www.mindful.org/ www.freeUniversity of Nebraska Medical Centerness.org/ Employment Agency [employer] [address] [place] [address] Providing an opportunity for successful employment and [...] 30 tablet Refills: 0 naloxone 4 mg/actuation Hollenberg Commonly known as: Narcan 1 each by [...] Center 05/17/2022 10:00 AM Kanu Ash MD J Hem Off [facility] 05/17/2022 11:00 AM [facility] IN[facility]ION, ROOM [facility] Hem Inf [facility] 05/17/2022 2:30 PM Criselda Zelaya APRN [facility] PALL 5B [facility] 05/18/2022 4:00 PM J RAD/ONC, TREATMENT [facility] Rad Trt [facility] 05/24/2022 1:30 PM Tami Horton APRN [facility] Hem Off [facility] 05/24/2022 2:00 PM [facility] INFUSION, ROOM [facility] Hem Inf [facility] 05/25/2022 1:30 PM PFT ROOM 2 MH PFT [facility] 05/25/2022 2:30 PM Bishop Kumari MD [facility] THOR 3K [facility] 05/31/2022 8:30 AM Tami Horton APRN STJ Hem Off [facility] 05/31/2022 9:00 AM [facility] INFUSION, ROOM STJ Hem Inf [facility] 06/07/2022 9:30 AM Kanu Ash MD STJ Hem Off [facility] 06/07/2022 10:00 AM [facility] INFUSION, ROOM [facility] Hem Inf [facility] 06/14/2022 9:00 AM Kanu Ash MD STJ Hem Off [facility] 06/14/2022 9:30 AM [facility] INFUSION, ROOM [facility] Hem Inf [facility] 06/21/2022 9:30 AM Kanu Ash MD STJ Hem Off [facility] 06/21/2022 10:00 AM [facility] INFUSION, ROOM [facility] Hem Inf [facility] You have a telephone appointment with the Palliative Care team on 05/17 at 2:30PM. A nurse from [facility] will also call to check in with you later this week. Finally, you will be contacted by the Radiation Oncology and/or Medical Oncology departments to coordinate your treatment schedule. Please callthese offices if you have not been contacted by the end of this week. Your Inpatient Medical Team at [facility] Name(s) of your inpatient provider(s): Belen Malagon MD; Jeff Bains MD; Fifi Bishop MD; Romeo Price MS4 Your Primary Care Provider: Willam Waite MD [phone] For questions regarding this document or issues relating to this hospitalization on the Medical Service, please contact your inpatient physician through the [facility] Power Plant Operations Manager . Issues after hours and on weekends [...] by Nasal 1 each 0 05/11/2022 mg/actuation [place], route once as needed Non-Aerosol for up [...] SpO2: 96 % SpO2: [94 %-99 %] IO 05/10 07 - 05/11 0700 In: 1100 [P.O.:1100] Out: [...] in the last 7068 hours. Invalid input(s): SABQJQGJCOG7R No results for input(s): HA1C in the [...] who have questions please contact the health child care specialist that requested your imaging first. Electronically signed by: Bishop Cota DO, [facility] ([phone]), at 05/04/2022 3:[address] Chest w Contrast (Exam End: 05/04/2022 [...] who have questions please contact the health child care specialist that requested your imaging first. Electronically signed by: Jose Juan Singh MD, [facility] ([phone]), at 05/04/2022 7:36 PM MRI Cervical Spine wwo Contrast (Exam End: 05/04/2022 [...] who have questions please contact the health child care specialist that requested your imaging first. Electronically signed by: Armando Duvall MD, [facility] ([phone]), at 05/05/2022 2:48 AM MRI Thoracic Spine wwo Contrast (Exam End: 05/04/2022 [...] who have questions please contact the health child care specialist that requested your imaging first. Electronically signed by: Armando Duvall MD, [facility] ([phone]), at 05/05/2022 2:48 AM MRI Brain wwo Contrast (Generic) (Exam End: 05/05/2022 [...] who have questions please contact the health child care specialist that requested your imaging first. Electronically signed by: Bishop Otto, [facility] ([phone]), at 05/05/2022 10:[address] Abdomen & Pelvis w Contrast (Exam End: 05/05/2022 11:27 AM) Impression No metastatic disease identified in the abdomen and pelvis. Thank you for letting us participate in the care of this patient. If you are a health care provider and have any questions regarding this report, please contact the number below. For patients who have questions please contact the health child care specialist that requested your imaging first. Electronically signed by: Katlyn Pfeiffer MD, [facility] ([phone]), at 05/05/2022 1:45 PM MRI Brachial Plexus w Contrast Left (Exam End: [...] who have questions please contact the health child care specialist that requested your imaging first. Electronically signed by: Darwin Braden MD, [facility] ([phone]), at 05/08/2022 9:[address] Rad Onc Chest Interp Only (Exam End: [...] who have questions please contact the health child care specialist that requested your imaging first. Electronically signed by: Bishop Cota DO, [facility] ([phone]), at 05/11/2022 7:39 AM Scheduled Medications: ??? cloNIDine 0.2 mg Oral [...] Dr Herson MALAGON MD Blue Team Pager [phone] 05/11/22 Maylin Lepe RN - 05/11/2022 5:44 [...] went to break shortly after. Upon return policy writer typist noticed that patient was not in his room. launch check out, Security, and Team notified. RN and AIRWAYS OPERATIONS SPECIALIST attempted to locate patient. The patient did [...] He continues to be followed by the [facility] service for pain management and concurrent ISABELLA. Interval History: -Carley developed progressive sensory changes in the mud logger along with confusion and muscle cramps -> lidocaine infusion stopped just after 8am -Of note, his pain was better controlled when on the lidocaine infusion -His mentation gradually improved as the morning went on; Carley was aware of his confusion and was very distressed by the way he felt in the mud logger Physical sx/ROS: If not discussed, please delete [...] -> last BM 05/08 Emotional/coping/counseling: Met with Carley twice- first in the morning as the [...] started on 05/10 @ 1504 -> discontinued 11/25 side effects @ 0814 today Suboxone 4mg [...] bpm -- 20 145/86 99 % RA 05/10/224 37.2 ??C (99 ??F) 82 bpm -- [...] bpm -- -- -- 95 % -- 05/10/222314 -- 68 bpm -- -- (!) 147/93 95 % -- 05/10/222315 36.7 ??C (98 ??F) 69 bpm -- -- (!) 147/93 96 % -- 05/10/222320 -- 71 bpm -- -- -- -- -- 05/11/225 36.5 ??C (97.7 ??F) 78 bpm -- 22 (!) 165/102 99 % RA 05/11/22 0728 37.3 ??C (99.2 ??F) 68 bpm -- 22 (!) 158/100 98 % RA 05/11/22 1112 37.1 ??C (98.7 ??F) 64 bpm -- (!) 150/97 96 % RA GEN: Well-nourished [...] outpatient prescriber -> Naloxone also prescribed at dc -Would also INCREASE gabapentin to 600 mg [...] on his journey, validating his concerns -Appreciate STOCK UNLOADER support -Will consider additional supports for Carley while he is still inpatient Palliative Care follow-up plan: Medical team Nursing team Psychosocial Support Inpatient Daily for symptoms STOCK UNLOADER Outpatient OP follow-up with Criselda on 05/17 at 2:30 IP gas jockey will follow-up with Carley laterin the week [...] Whitney Batres MD Palliative care team pager #[phone] Leighton Moncada RN - 05/11/2022 12:57 AM [...] ADLs]: Eyes on Surveillance [continuous indirect monitoring]: Eldon Johnston Patient-specific fall prevention interventions for sensory deficits provided, if applicable: [X] No CPG GOAL OUTCOME EVALUATION: Whitney Batres MD - 05/10/2022 3:02 PM EDT Palliative Care Daily Progress Note NAME: Carley Palomares Encounter Date: 05/10/2022 Inpatient Attending: Belen Malagon MD PCP: Willam [...] He continues to be followed by the [facility] Care service for pain management and concurrent [...] on his journey, validating his concerns -Appreciate STOCK UNLOADER support -Will consider additional supports for Carley while he is still inpatient Palliative Care follow-up plan: Medical team Nursing team Psychosocial Support Inpatient Daily for symptoms STOCK UNLOADER Outpatient Has had visit with OP provider while admitted; will schedule f/u through our clinic This was a high-complexity visit related to the management of IV lidocaine infusion for severe cancer-related pain along with other medications. Whitney Batres MD Palliative care team pager #[phone] Catie Harrison MSW - 05/10/2022 10:00 AM EDT Palliative Care Social Work Note STOCK UNLOADER attempted to meet with pt and Spouse for follow-up visit. Pt was at a procedure and spouse not in the room. Will visit another time. 1. Initial visit or follow-up? Follow-up visit 2. Visit with patient, career development engineer, or both? Both Note - Pt/Spouse not in room 3. Visit with another steam press operator? No 4. Reason for visit (can select [...] % SpO2: [98 %-100 %] IO 05/09 0701 - 05/10 0700 In: 1400 [P.O.:1400] Out: - Wt (last/admit) [...] cooperative with exam Labs: CBC: Recent Labs 05/10/2225105/09/22 0545 05/08/22 0819 WBC 9.3 8.7 10.6* HGB 12.8* 13.6* 14.4 PLATELET 264 279 287 Chemistry: Recent Labs 05/10/2225105/09/22 0545 05/08/22 0819 NA 139 137 135 K 4.6 4.3 4.6 CL 106 105 103 CO2 26 24 25 BUN 24* 23* 24* CREATININE 0.80 0.75* 0.86 GLUCOSE 163 190 123 Recent Labs 05/10/2225105/09/22 0545 05/08/22 0819 05/05/22 0720 05/04/22 1550 [...] in the last 7068 hours. Invalid input(s): [id number] No results for input(s): HA1C in the [...] who have questions please contact the health child care specialist that requested your imaging first. Electronically signed by: Bishop Cota DO, [facility] ([phone]), at 05/04/2022 3:[address] Chest w Contrast (Exam End: 05/04/2022 [...] who have questions please contact the health child care specialist that requested your imaging first. Electronically signed by: Jose Juan Singh MD, [facility] ([phone]), at 05/04/2022 7:36 PM MRI Cervical Spine wwo Contrast (Exam End: 05/04/2022 [...] who have questions please contact the health child care specialist that requested your imaging first. Electronically signed by: Armando Duvall MD, [facility] ([phone]), at 05/05/2022 2:48 AM MRI Thoracic Spine wwo Contrast (Exam End: 05/04/2022 [...] who have questions please contact the health child care specialist that requested your imaging first. Electronically signed by: Armando Duvall MD, [facility] ([phone]), at 05/05/2022 2:48 AM MRI Brain wwo Contrast (Generic) (Exam End: 05/05/2022 [...] who have questions please contact the health child care specialist that requested your imaging first. Electronically signed by: Bishop Otto [facility] ([phone]), at 05/05/2022 10:[address] Abdomen & Pelvis w Contrast (Exam End: 05/05/2022 11:27 AM) Impression No metastatic disease identified in the abdomen and pelvis. Thank you for letting us participate in the care of this patient. If you are a health care provider and have any questions regarding this report, please contact the number below. For patients who have questions please contact the health child care specialist that requested your imaging first. Electronically signed by: Katlyn Pfeiffer MD, [facility] ([phone]), at 05/05/2022 1:45 PM MRI Brachial Plexus w Contrast Left (Exam End: [...] who have questions please contact the health child care specialist that requested your imaging first. Electronically signed by: Darwin Braden MD, [facility] ([phone]), at 05/08/2022 9:32 AM Scheduled Medications: ??? buprenorphine-naloxone 4 mg of [...] course Fifi Bishop MD Blue Team Pager [phone] 05/10/22 Associated attestation - Belen Malagon MD [...] of two midnights or is on the [facility] inpatient only procedure list (status C) due [...] PM EDT Fall Event Note Carley Palomares [id number] 05/09/2022 Time of Fall: ~1445 Was the fall witnessed No/Unobserved fall Patient's description of fall: I was walking to the bathroom when my leg gave out & I fell to my knee Nursing staff description of fall: bathroom assist light came on, AIRWAYS OPERATIONS SPECIALIST (Castro) responded & called for RN assistance, this policy writer typist (Carla, ANA) & Nila, RN responded, assisted patient to standing position & [...] MD PGY-2, Internal Medicine Blue Team, Pager [phone] 05/09/22 Associated attestation - Belen Malagon MD [...] of two midnights or is on the [facility] inpatient only procedure list (status C) due [...] - MD aware. Otherwise VSSon RA. C/o 6-9/10 upper left chest/neck/shoulder pain - PRN PO [...] be to pursue outpatient curative chemoRT at [facility] starting 05/17. Per rad.Onc he will need [...] team Nursing team Psychosocial Support Inpatient Daily. STOCK UNLOADER Outpatient Has had visit with OP provider while admitted; will schedule f/u through our clinic Farooq Sanabria MD Palliative care team pager #[phone] Eugenia Del Valle RN - 05/09/2022 4:18 [...] in reach, room near nurses station Carla Hardin RN - 05/08/2022 4:57 PM EDT OUTCOME [...] able to discuss plan with provider Bhavin Willingham0. Active Orders Diet Regular diet Frequency: Effective [...] encounter: 77.1 kg (169 lb 15.6 oz). [place] Body Weight: n/a BMI wnl Usual Body [...] Protein-calorie Malnutrition: Not enough data to assess (Chaim et al, JPEN J Parenteral Enteral Nutr. 2012 February; 36(3): 273-83) Nutrition to continue to follow up while inpatient Thank you, FAROOQ FERRARO RD Pager #:[phone] Fifi Bishop MD - 05/08/2022 6:52 AM [...] SpO2: 99 % SpO2: [97 %-99 %] IO 05/07 0701 - 05/08 0700 In: 720 [...] in the last 7068 hours. Invalid input(s): [id number] No results for input(s): HA1C in the [...] who have questions please contact the health child care specialist that requested your imaging first. Electronically signed by: Bishop Cota DO, [facility] ([phone]), at 05/04/2022 3:[address] Chest w Contrast (Exam End: 05/04/2022 [...] who have questions please contact the health child care specialist that requested your imaging first. Electronically signed by: Jose Juan Singh MD, [facility] ([phone]), at 05/04/2022 7:36 PM MRI Cervical Spine wwo Contrast (Exam End: 05/04/2022 [...] who have questions please contact the health child care specialist that requested your imaging first. Electronically signed by: Armando Duvall MD, [facility] ([phone]), at 05/05/2022 2:48 AM MRI Thoracic Spine wwo Contrast (Exam End: 05/04/2022 [...] who have questions please contact the health child care specialist that requested your imaging first. Electronically signed by: Armando Duvall MD, [facility] ([phone]), at 05/05/2022 2:48 AM MRI Brain wwo Contrast (Generic) (Exam End: 05/05/2022 [...] who have questions please contact the health child care specialist that requested your imaging first. Electronically signed by: Bishop Otto, [facility] ([phone]), at 05/05/2022 10:[address] Abdomen & Pelvis w Contrast (Exam End: 05/05/2022 11:27 AM) Impression No metastatic disease identified in the abdomen and pelvis. Thank you for letting us participate in the care of this patient. If you are a health care provider and have any questions regarding this report, please contact the number below. For patients who have questions please contact the health child care specialist that requested your imaging first. Electronically signed by: Katlyn Pfeiffer MD, [facility] ([phone]), at 05/05/2022 1:45 PM Scheduled Medications: ??? ketorolac 15 mg Intravenous [...] Bishop MD (PGY-1) Anesthesiology Blue Team Pager [phone] Associated attestation - Belen Malagon MD - [...] of two midnights or is on the [facility] inpatient only procedure list (status C) due [...] in reach, room near nurses station Caroline Neil MD - 05/07/2022 6:57 PM EDT BRIEF ONCOLOGY FOLLOW UP NOTE We have discussed with rad.Onc, Dr. Donald and the patient's primary oncologist Dr. Ash. The plan will be to pursue outpatient curative chemoRT at [facility] starting 05/17. Per rad.Onc he will need a brachial plexus MRI while inpatient and has simulation planned here on Thursday 05/10. In short, no plan for chemo while inpatient. We remain available if other questions arise. Patient d/w attendings, Dr. Galloway and Dr. Ash. Catie Sam PGY4 Hematology Oncology Fellow Pager [phone] Neela Giron RN - 05/07/2022 6:50 PM [...] Plan: SW will place a referral to [place] for financial concerns. Following for STOCK UNLOADER support, including coping through illness process and resource needs, through disposition. Armando Waters STOCK UNLOADER [place] Flap Trimmer Hematology/Oncology Hospital Medicine-Medical Specialties Pager- [phone] Eugenia [...] in the last 7068 hours. Invalid input(s): [id number] No results for input(s): HA1C in the [...] who have questions please contact the health child care specialist that requested your imaging first. Electronically signed by: Bishop Cota DO, [facility] ([phone]), at 05/04/2022 3:[address] Chest w Contrast (Exam End: 05/04/2022 [...] who have questions please contact the health child care specialist that requested your imaging first. Electronically signed by: Jose Juan Singh MD, [facility] ([phone]), at 05/04/2022 7:36 PM MRI Cervical Spine wwo Contrast (Exam End: 05/04/2022 [...] who have questions please contact the health child care specialist that requested your imaging first. Electronically signed by: Armando Duvall MD, [facility] ([phone]), at 05/05/2022 2:48 AM MRI Thoracic Spine wwo Contrast (Exam End: 05/04/2022 [...] who have questions please contact the health child care specialist that requested your imaging first. Electronically signed by: Armando Duvall MD, [facility] ([phone]), at 05/05/2022 2:48 AM MRI Brain wwo Contrast (Generic) (Exam End: 05/05/2022 [...] who have questions please contact the health child care specialist that requested your imaging first. Electronically signed by: Bishop Otto [facility] ([phone]), at 05/05/2022 10:[address] Abdomen & Pelvis w Contrast (Exam End: 05/05/2022 11:27 AM) Impression No metastatic disease identified in the abdomen and pelvis. Thank you for letting us participate in the care of this patient. If you are a health care provider and have any questions regarding this report, please contact the number below. For patients who have questions please contact the health child care specialist that requested your imaging first. Electronically signed by: Katlyn Pfeiffer MD, [facility] ([phone]), at 05/05/2022 1:45 PM Scheduled Medications: ??? cloNIDine 0.2 mg Oral [...] Bishop MD (PGY-1) Anesthesiology Blue Team Pager [phone] Associated attestation - Chema Davila MD - [...] of two midnights or is on the [facility] inpatient only procedure list (status C) due to: uncontrolled pain requiring titration of medications to achieve optimal effect and to minimize immediate or severe side effects Connie Liudmila ReyesSREEDHAR - 05/06/2022 3:00 PM EDT Palliative Care [...] fight with his who went home. See STOCK UNLOADER notes as well from today re: concern for active illicit drug use and family bringing in illicit substances as well. Long discussion with patient today re: pain management and concurrent ISABELLA. Carley is concerned that crowwill not have good pain control and asked [...] will bring an Ipad to his room. Daughter, Marisela will join as well. Plan will be [...] team Nursing team Psychosocial Support Inpatient Daily. STOCK UNLOADER Outpatient LIUDMILA BRUNNER APRN Palliative care team pager #[phone] Darleen Francois RN - 05/06/2022 1:57 PM [...] AM EDT Palliative Care Social Work Note STOCK UNLOADER met with pt's Spouse, Ines. Pt was out of the room at the time. Chacon expressed concern that ptmay have brought in some drugs with him as he was acting funny and in the bathroom a lot. Chacon checked pt's usual hiding places but didn't find anything but is concerned as she knows street drugs could interfere with pt's care here and procedures. Pt's drugs of choice are meth and Fentanyl. Ines also is concerned that other family members may try to bring drugs in to pt. Pt's Medical team, Charge Nurse, and Security made aware. Ines and pt are but have been for [...] seen in consultation as an inpatient at [place] regarding his lung cancer ONCOLOGIC HISTORY Overview: [...] on 04/29/22. He subsequently presented to the [facility] ED on 05/04/22 with increasing pain, dysphagia, [...] Social Issues Travels ~ 30 minutes to [place] Tobacco Cigarettes, ~ 1/2 ppd. A beer [...] Nerves: No cranial nerve deficit. 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 Altered sensation to [...] SURGERY ??? HERNIA REPAIR ? ? PRO [facility] EBUS GUIDED SAMPL 3/> NODE STATION/STRUX N/A 04/29/2022 BRONCH, W ENDOBRONCHIAL ULTRASOUND (EBUS) GUIDED SAMPLING, 3+ NODES (WRVU 5.21) performed by Antonio Jeronimo MD at [facility] ENDOSCOPY ??? PRO LAMINOTOMY, LUMBAR DISK, 1 INTRSP 06/17/2011 LAMINOTOMY, DECOMPRESSION, FORAMINOTOMY, LUMBAR performed by ANDI NELSON at [facility] MAIN OR ??? PRO NEEDLE BIOPSY LIVER 12/22/2011 LIVER BIOPSY performed by RITA ORLANDO at [facility] ENDOSCOPY ??? PRO REDO EXCIS LUMBAR DISC 02/01/2013 LAMINOTOMY W\DECOMPRESSION, ONE LVL, LUMBAR ,RE-EXPL (INCLDNG PART. FACETECTOMY, FORAMINOTOMY &\OR DISCECTOMY) performed by Andi Nelson MD at [facility] MAIN OR Social History Socioeconomic [...] Pt has attended [facility] rehab including at [facility]. 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 Not currently licensed On disability for [...] situation. he has not been discussed at [facility] tumor board and we will do so. [...] term sequelae(fatigue, esophagitis, skin erythema, cough) and alf sequelae (radiation pneumonitis, the potential for increased [...] in the last 7068 hours. Invalid input(s): [id number] No results for input(s): HA1C in the [...] who have questions please contact the health child care specialist that requested your imaging first. Electronically signed by: Bishop Cota DO, [facility] ([phone]), at 05/04/2022 3:[address] Chest w Contrast (Exam End: 05/04/2022 [...] who have questions please contact the health child care specialist that requested your imaging first. Electronically signed by: Jose Juan Singh MD, [facility] ([phone]), at 05/04/2022 7:36 PM MRI Cervical Spine wwo Contrast (Exam End: 05/04/2022 [...] who have questions please contact the health child care specialist that requested your imaging first. Electronically signed by: Armando Duvall MD, [facility] ([phone]), at 05/05/2022 2:48 AM MRI Thoracic Spine wwo Contrast (Exam End: 05/04/2022 [...] who have questions please contact the health child care specialist that requested your imaging first. Electronically signed by: Armando Duvall MD, [facility] ([phone]), at 05/05/2022 2:48 AM MRI Brain wwo Contrast (Generic) (Exam End: 05/05/2022 [...] who have questions please contact the health child care specialist that requested your imaging first. Electronically signed by: Bishop Otto [facility] ([phone]), at 05/05/2022 10:[address] Abdomen & Pelvis w Contrast (Exam End: 05/05/2022 11:27 AM) Impression No metastatic disease identified in the abdomen and pelvis. Thank you for letting us participate in the care of this patient. If you are a health care provider and have any questions regarding this report, please contact the number below. For patients who have questions please contact the health child care specialist that requested your imaging first. Electronically signed by: Katlyn Pfeiffer MD, [facility] ([phone]), at 05/05/2022 1:45 PM Scheduled Medications: ??? cloNIDine 0.2 mg Oral BID ??? [MAR Hold] divalproex EC 500 mg Oral BID ??? [MAR Hold] multivitamin with minerals 1 tablet Oral Daily ??? [MAR Hold] pantoprazole EC 40 mg Oral Daily ??? [MAR Hold] enoxaparin 40 mg Subcutaneous Nightly ??? [MAR Hold] metoprolol tartrate 12.5 mg Oral 2 times per day ??? buprenorphine 300 mcg Buccal BID Followed by ??? [MAR Hold] buprenorphine-naloxone 1 mg of opiate Sublingual BID Followed by ??? [MAR Hold] buprenorphine-naloxone 2 mg of opiate Sublingual BID Followed by ??? [MAR Hold] buprenorphine-naloxone 4 mg of opiate Sublingual BID Followed by ??? [MAR Hold] buprenorphine-naloxone 4 mg of opiate Sublingual 4 Times Daily ??? [MAR Hold] senna-docusate 2 tablet Oral BID ??? [MAR Hold] gabapentin 300 mg Oral TID ??? [MAR Hold] dexAMETHasone 4 mg Oral 2 times per day ??? [DEC Hold] acetaminophen 975 mg Oral TID Infusing Medications: PRN Medications: [MAR Hold] gadoterate meglumine, [DEC Hold] polyethylene glycoL (MIRALAX) oral powder, [DEC Hold] HYDROmorphone OR [DEC Hold] HYDROmorphone, [DEC [...] Bishop MD (PGY-1) Anesthesiology Blue Team Pager [phone] Associated attestation - Chema Davila MD - [...] of two midnights or is on the [facility] inpatient only procedure list (status C) due [...] AM EDT Palliative Care Social Work Note STOCK UNLOADER joined Palliative Attending Liudmila Brunner APRN, in [...] Pt has been to several rehabs including [place] [facility]. Of recent street drug use, pt [...] with his Jaja. 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 Review of Systems: No [...] SURGERY ??? HERNIA REPAIR ? ? PRO [facility] EBUS GUIDED SAMPL 3/> NODE STATION/STRUX N/A 04/29/2022 BRONCH, W ENDOBRONCHIAL ULTRASOUND (EBUS) GUIDED SAMPLING, 3+ NODES (WRVU 5.21) performed by Antonio Jeronimo MD at [facility] ENDOSCOPY ??? PRO LAMINOTOMY, LUMBAR DISK, 1 INTRSP 06/17/2011 LAMINOTOMY, DECOMPRESSION, FORAMINOTOMY, LUMBAR performed by ANDI NELSON at [facility] MAIN OR ??? PRO NEEDLE BIOPSY LIVER 12/22/2011 LIVER BIOPSY performed by RITA ORLANDO at [facility] ENDOSCOPY ??? PRO REDO EXCIS LUMBAR DISC 02/01/2013 LAMINOTOMY W\DECOMPRESSION, ONE LVL, LUMBAR ,RE-EXPL (INCLDNG PART. FACETECTOMY, FORAMINOTOMY &\OR DISCECTOMY) performed by Andi Nelson MD at [facility] MAIN OR No current facility-administered [...] who have questions please contact the health child care specialist that requested your imaging first. Electronically signed by: Bishop Cota DO, [facility] ([phone]), at 05/04/2022 3:[address] Chest w Contrast (Exam End: 05/04/2022 [...] who have questions please contact the health child care specialist that requested your imaging first. Electronically signed by: Jose Juan Singh MD, [facility] ([phone]), at 05/04/2022 7:36 PM MRI Cervical Spine wwo Contrast (Exam End: 05/04/2022 [...] who have questions please contact the health child care specialist that requested your imaging first. Electronically signed by: Armando Duvall MD, [facility] ([phone]), at 05/05/2022 2:48 AM MRI Thoracic Spine wwo Contrast (Exam End: 05/04/2022 [...] who have questions please contact the health child care specialist that requested your imaging first. Electronically signed by: Armando Duvall MD, [facility] ([phone]), at 05/05/2022 2:48 AM Other studies: Assessment/Plan: 56 y.o. male known [...] Jaja Palomares, - Dispo: pending clinical course Cherelle Ochoa MD Internal Medicine Pager [phone] > after 7AM, pager [phone] 05/05/22 5:57 AM Associated attestation - Chema [...] of two midnights or is on the [facility] inpatient only procedure list (status C) due [...] SURGERY ??? HERNIA REPAIR ? ? PRO [facility] EBUS GUIDED SAMPL 3/> NODE STATION/STRUX N/A 04/29/2022 BRONCH, W ENDOBRONCHIAL ULTRASOUND (EBUS) GUIDED SAMPLING, 3+ NODES (WRVU 5.21) performed by Antonio Jeronimo MD at [facility] ENDOSCOPY ??? PRO LAMINOTOMY, LUMBAR DISK, 1 INTRSP 06/17/2011 LAMINOTOMY, DECOMPRESSION, FORAMINOTOMY, LUMBAR performed by ANDI NELSON at [facility] MAIN OR ??? PRO NEEDLE BIOPSY LIVER 12/22/2011 LIVER BIOPSY performed by RITA ORLANDO at [facility] ENDOSCOPY ??? PRO REDO EXCIS LUMBAR DISC 02/01/2013 LAMINOTOMY W\DECOMPRESSION, ONE LVL, LUMBAR ,RE-EXPL (INCLDNG PART. FACETECTOMY, FORAMINOTOMY &\OR DISCECTOMY) performed by Andi Nelson MD at [facility] MAIN OR Social History Tobacco [...] given his recent procedure/biopsy. Mulugeta Freedman MD 05/04/22 4071 Neel Rosado RN - 05/04/2022 7:29 PM [...] [05/04/22 1524] Temp: 36.7 ??C (98 ??F) [05/04/22 1524] Temp src: Temporal [05/04/22 1524] SpO2: 99 % [05/04/22 1525] O2 Device: RA [05/04/22 152] O2 Flow Rate (L/min): n/a Physical Exam General: Alert, oriented, in NAD. HEENT: Normocephalic/atraumatic Neck: Trachea midline Cardiovascular: RRR Pulmonary: LCTAB Abdomen: Soft, nondistended, no TTP, no rebound/guarding Skin: [place], warm, dry Extremities: No deformities. Neuro: CN [...] who have questions please contact the health child care specialist that requested your imaging first. Electronically signed by: Bishop Cota DO, [facility] ([phone]), at 05/04/2022 3:59 PM ED Course as of 05/05/22315May 04, 2022 183 Thoracic surgery paged [phone] Thoracics paged TueMay 05, 2022314 Heme/onc paged Assessment and Plan: 56 y.o. [...] his tumor. Fuad Garza MD Resident 05/05/22 7748 Associated attestation - Mulugeta Freedman MD - [...] transport home. Message left via voicemail with , Ines. Suboxone prescription needed upon discharge. Palliative Care is managing patient's need for Suboxone. Patient to f/u in 1 week with Palliative Care. Needs for Transition of Care: Plan for discharge is: Home w/o Services *forthcoming Outpatient Agency/Support Group Needs: Substance abuse treatment Agency Referrals & Follow-up Care: none Transportation: family or friend will provide *per MD , neice or nephew will provide Functional [...] none Patient is insured through: Primary Insurance: [facility] MANAGED MEDICARE Payor: [facility] MANAGED MEDICARE / Plan[facility] / Product Type: *No Producttype* / Secondary Insurance: N/A Prescription Coverage: Yes This plan was formulated with input from patient, Carley and team. All are in agreement with plan. IMM referred to entry specialist Nannette Whiting RN [phone] Pager [phone] Care Management - Nannette Whiting RN - [...] Discharge: Patient is insured through: Primary Insurance: [employer] MANAGED MEDICARE Payor: [employer] MANAGED MEDICARE / Plan: [employer] MANAGED MEDICARE COMPLETE / Product Type: *No [...] Date of Discharge: 05/14/2022 Nannette Whiting RN [phone] Pager [phone] Plan of Care - Maylin Lepe RN [...] Current DME: none Home Address confirmed as: [address] [place] [id number] Social & Family Supports: , Chacon, and dtrAll names listed below confirmed with patient as current and correct Extended Emergency Contact Information Primary Emergency Contact: Edil Palomaresy Address: [address] [place] [address] [facility] [place] Relation: Spouse Current Care Provided by: [...] not see him. Health/Prescription Coverage: Primary Insurance: [facility] MANAGED MEDICARE Payor: [facility] MANAGED MEDICARE / Plan: [facility] MANAGED MEDICARE COMPLETE / Product Type: *No Producttype* / Secondary Insurance: N/A Prescription Coverage: Yes Preferred Pharmacy: [address] [phone] [facility] - [place] [id number] Status: Patient is a : No Primary Care Provider: Willam Waite MD [phone] Patient/Caregiver Goals of Treatment: Potential Needs for [...] transition of care planning. 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 HERNIA REPAIR ? ? PRO [facility] EBUS GUIDED SAMPL 3/> NODE STATION/STRUX N/A 04/29/2022 BRONCH, W ENDOBRONCHIAL ULTRASOUND (EBUS) GUIDED SAMPLING, 3+ NODES (WRVU 5.21) performed by Antonio Jeronimo MD at [facility] ENDOSCOPY ??? PRO LAMINOTOMY, LUMBAR DISK, 1 INTRSP 06/17/2011 LAMINOTOMY, DECOMPRESSION, FORAMINOTOMY, LUMBAR performed by ANDI NELSON at [facility] MAIN OR ??? PRO NEEDLE BIOPSY LIVER 12/22/2011 LIVER BIOPSY performed by RITA ORLANDO at [facility] ENDOSCOPY ??? PRO REDO EXCIS LUMBAR DISC 02/01/2013 LAMINOTOMY W\DECOMPRESSION, ONE LVL, LUMBAR ,RE-EXPL (INCLDNG PART. FACETECTOMY, FORAMINOTOMY &\OR DISCECTOMY) performed by Andi Nelson MD at [facility] MAIN OR PAST SOCIAL HX: [...] Resp: [10-20] SpO2 SpO2: [94 %-100 %] 05/04 0701 - 05/05 0700 In: 1000 [I.V.:1000] Out: - Wt Last [...] No jaundice Labs: CBC: Recent Labs 05/05/22 0720 05/04/22 1550 WBC 15.2* 10.4* HGB 15.0 15.9 [...] who have questions please contact the health child care specialist that requested your imaging first. Brain wwo [...] who have questions please contact the health child care specialist that requested your imaging first. Electronically signed by: Bishop Otto, [facility] ([phone]), at 05/05/2022 10:31 AM MRI Cervical Spine wwo Contrast Final Result 1. [...] who have questions please contact the health child care specialist that requested your imaging first. Electronically signed by: Armando Duvall MD, [facility] ([phone]), at 05/05/2022 2:48 AM MRI Thoracic Spine wwo Contrast Final Result 1. [...] who have questions please contact the health child care specialist that requested your imaging first. Electronically signed by: Armando Duvall MD, [facility] ([phone]), at 05/05/2022 2:[address] Chest w Contrast Final Result 1. Unchanged [...] who have questions please contact the health child care specialist that requested your imaging first. Electronically signed by: Jose Juan Singh MD, [facility] ([phone]), at 05/04/2022 7:36 PM XR Chest PA & Lateral (Generic) Final Result 1. Stable left upper lobe paramediastinal mass. 2. No superimposed acute cardiopulmonary process. Thank you for letting us participate in the care of this patient. If you are a health care provider and have any questions regarding this report, please contact the number below. For patients who have questions please contact the health child care specialist that requested your imaging first. Electronically signed by: Bishop Cota DO, [facility] ([phone]), at 05/04/2022 3:59 PM ASSESSMENT & PLAN: Carley Palomares is a 56-year-old [...] the plan as outlined by DR Samuel Woosd MD Consult Note - Andrew Ware MD - 05/05/2022 4:49 PM EDT [facility] NEUROSURGERY CONSULT NOTE ID: Carley Palomares, 56 [...] SURGERY ??? HERNIA REPAIR ? ? PRO [facility] EBUS GUIDED SAMPL 3/> NODE STATION/STRUX N/A 04/29/2022 BRONCH, W ENDOBRONCHIAL ULTRASOUND (EBUS) GUIDED SAMPLING, 3+ NODES (WRVU 5.21) performed by Antonio Jeronimo MD at [facility] ENDOSCOPY ??? PRO LAMINOTOMY, LUMBAR DISK, 1 INTRSP 06/17/2011 LAMINOTOMY, DECOMPRESSION, FORAMINOTOMY, LUMBAR performed by ANDI NELSON at [facility] MAIN OR ??? PRO NEEDLE BIOPSY LIVER 12/22/2011 LIVER BIOPSY performed by RITA ORLANDO at [facility] ENDOSCOPY ??? PRO REDO EXCIS LUMBAR DISC 02/01/2013 LAMINOTOMY W\DECOMPRESSION, ONE LVL, LUMBAR ,RE-EXPL (INCLDNG PART. FACETECTOMY, FORAMINOTOMY &\OR DISCECTOMY) performed by Andi Nelson MD at [facility] MAIN OR MEDICATIONS: No current [...] male with recently diagnosed left upper lobe Faith tumor, with biopsy and staging demonstrating adenocarcinoma [...] Department Center 05/06/2022 9:30 AM LABORATORY, TECH [facility] INF 3K [facility] 05/06/2022 10:30 AM Kanu Ash MD [facility] HEM ONC [facility] 05/06/2022 11:30 AM Richy Donald MD [facility] RAD OFF [facility] 05/07/2022 1:00 PM [facility] LEA NM PET Nuc Med [facility] Rad 05/25/2022 1:30 PM PFT ROOM 2 PFT [facility] 05/25/2022 2:30 PM Bishop Kumari MD [facility] THOR 3K [facility] Neurosurgery Pager: [phone] Andrew Ware MD 05/05/2022 4:53 PM Clinical Documentation Improvement: Active Hospital Problems Diagnosis ??? Lung mass Resolved Hospital Problems No resolved problems to display. Consult Note - Liudmila Brunner APRN - 05/05/2022 3:11 PM EDT Palliative Medicine [...] Palomares is a 56 y.o. male from [place], [place] with h/o COPD, bipolar affective disorder, [...] None discussed Information and Decision Making Preferences: [place]acon to be his spokesperson, he often doesn't answer his phone. Psychosocial context: Was the patient of family screened for psychosocial needs?: See Catie Harrison STOCK UNLOADER's note from today. Who is considered the [...] note for today. He will need ongoing STOCK UNLOADER support in hospital and in clinic. Coping: Current behaviors and efficacy: Poor, using illicit drugs to cope and help with pain management as well. Spiritual Issues: Was the patient or family screened for spiritual care needs?: No H - sources of hope and meaning = O - organized spiritism = P - personal spiritual practice = [...] ISABELLA and Peer Support. 2. Palliative Care STOCK UNLOADER to follow as well. Physical symptoms: Cancer [...] X Nursing X Primary team X Family member(s)/career development engineer(s) Palliative Care follow-up plan: Medical team Nursing team Psychosocial Support Inpatient Daily for pain management. Outpatient LIUDMILA BRUNNER APRN Palliative care team pager #[phone] Consult Note - Rima Rush [facility] - 05/05/2022 1:04 PM EDT TelePharmacy [...] SURGERY ??? HERNIA REPAIR ? ? PRO [facility] EBUS GUIDED SAMPL 3/> NODE STATION/STRUX N/A 04/29/2022 BRONCH, W ENDOBRONCHIAL ULTRASOUND (EBUS) GUIDED SAMPLING, 3+ NODES (WRVU 5.21) performed by Antonio Jeronimo MD at [facility] ENDOSCOPY ??? PRO LAMINOTOMY, LUMBAR DISK, 1 INTRSP 06/17/2011 LAMINOTOMY, DECOMPRESSION, FORAMINOTOMY, LUMBAR performed by ANDI NELSON at [facility] MAIN OR ??? PRO NEEDLE BIOPSY LIVER 12/22/2011 LIVER BIOPSY performed by RITA ORLANDO at [facility] ENDOSCOPY ??? PRO REDO EXCIS LUMBAR DISC 02/01/2013 LAMINOTOMY W\DECOMPRESSION, ONE LVL, LUMBAR ,RE-EXPL (INCLDNG PART. FACETECTOMY, FORAMINOTOMY &\OR DISCECTOMY) performed by Andi Nelson MD at [facility] MAIN OR Family History Problem [...] -- -- 90 13 98 % -- 05/04/22 2000 (!) 148/106 -- -- 91 20 96 [...] Nilsa Sam Hematology/Medical Oncology Fellow Page # [phone] 05/05/22, 12:37 PM Associated attestation - Aron [...] available for questions or concerns. Please page [phone] while in house. He does not require [...] 05/05/22, 3:51 AM ED Triage - Corin Fountain RN - 05/04/2022 3:23 PM EDT Diagnosed with lung cancer. Complaining of left sided pain. Has lost 10 lbs in 2 weeks. documented in this encounter Plan of Treatment Upcoming Encounters Date Type Specialty Care Team Description 07/14/2022 TH Visit (TeleHealth) Palliative Care Kian Zelaya [facility] PALLIATIVE MEDIC [place] [address] (Wo rk) 07/22/2022 TH Visit (TeleHealth) Palliative Care DoBenoit [facility] [place] [address] Criselda [address] [facility] [place] [address] 08/12/2022 Office Visit Cardiology Hari Summers MD [facility] [place] [address] [facility] [place] [address] Scheduled Orders Name Type Priority Associated Diagnoses [...] Metabolic Panel (non-fasting) (05/12/2022 6:17 AM EDT) P athologist Signature Glucose Lvl 118 65 - 199 [facility] mg/dL [facility] Comment: Diabetes: >=200 mg/dL plus symp toms BUN 19 10 - 20 mg/dL [facility] LABORATORY Creatinine 0.73 (L) 0.80 - 1.50 mg/dL [facility] Sodium 138 135 - 145 mmol/L [facility] Potassium 4.6 3.5 - 5.0 mmol/L [facility] Comment: Please note: ??Patients with WBC >100,00 0 may have falsely elevated Potassium levels. ??For accurate Potassium quantif ication in these patients send serum separator tube (gold top) for subsequent determinations. ??Contact the Clinical Chemistry Laboratory if there are any qu estions. Chloride 103 98 - 107 mmol/L [facility] CO2 26 22 - 31 mmol/L [facility] Anion Gap 9 5 - 15 mmol/L [facility]ORY Calcium 9.1 8.5 - 10.5 mg/dL [facility] Estimated GFR 108 >=60 mL/min/1.73 m?? [facility] Comment: This patient's estimated GFR [...] Organization Address City/State/[place] [address] (ABNORMAL) Hemogram (05/12/2022 6:17 AM EDT) Analysis Performed At [facility] Time Signature WBC 13.5 (H) 4.0 - 9.5 [facility] x10(3)/[facility] LABORATORY RBC 4.39 (L) 4.58 - [facility] 5.54 [facility] x10(6)/[facility] LABORATORY Hemoglobin 13.8 13.7 - [facility] 16.5 g/dL [facility] Hematocrit 40.1 (L) 40.5 - [facility] 48.5 % [facility] MCV 91.3 82.9 - [facility] 93.1 [facility] LABORATORY MCH 31.4 27.5 - [facility] 32.1 pg [facility] MCHC 34.4 32.0 - [facility] 35.7 g/dL [facility] Platelets 248 145 - 357 [facility] x10(3)/[facility] LABORATORY RDWSD 44.3 36.0 - [facility] 45.0 [facility] LABORATORY RDWCV 13.2 11.4 - [facility] 13.8 % [facility] MPV 10.1 7.6 - 12.9 [facility] LABORATORY nRBC % Auto 0.0 % [facility] nRBC Abs Auto 0.000 0.000 - [facility] 0.000 [facility] x10(3)/[facility] LABORATORY Specimen Anatomical Collection Method Collection Time Receive d Time (Source) Location / / Volume Laterality Blood 05/12/2022 6:17 AM 2 6:29 EDT AM EDT Resulting Agency Comment Spec In Lab Valerie Wiggins MD HEMATOLOGY ORDERABLES Performing Organization Address City/State/[place] [address] (ABNORMAL) BLOOD GAS 2 VENOUS (05/11/2022 9:06 AM EDT) Analysis Performed At [facility] Time Signature pH Gen 7.43 (H) 7.32 - [facility] 7.42 [facility] pCO2 Gen 37 (L) 41 - 51 [facility] LABORATORY pO2 Gen 57 (H) 25 - 40 [facility] LABORATORY HCO3 Gen 24.3 mmol/L [facility] BE Gen 0.0 mmol/L [facility] Hgb Blood Gas 13.5 (L) 13.7 - [facility] 16.5 g/dL [facility] O2HB Gen 90.6 % [facility] COHB Gen 0.4 % [facility] Comment: Nonsmokers: 0.5-1.5% COHB Smokers: Variable, but usually less than 10% Toxic: 20-30% COHB Lethal: Greater than 60% COHB METHB Gen 0.1 <=1.5 % [facility] Na Whole Blood 137 135 - 145 mmol/L [facility] K Whole Blood 3.9 3.5 - 5.0 mmol/L [facility] Comment: Please note: Patients with WBC >100,000 may have falsely elevated Potassium levels. Contact the Clinical Chemistry L aboratory if there are any questions. ICa Whole Blood 1.13 (L) 1.15 - 1.33 mmol/L [facility] Comment: Note: ??Total bilirubin higher than 20 m g/dL may lead to falsely low ionized calcium. CL Whole Blood 104 98 - 107 mmol/L [facility] Gluc Whole Bld 161 65 - 199 mg/dL [facility] Comment: Diabetes: >=200 mg/dL plus symp toms Lactate WB 2.7 (H) 0.5 - 2.2 mmol/L [facility] BGas Source Venous [facility] Specimen Anatomical Collection Method Collection Time Receive d Time (Source) Location / / Volume Laterality Blood 05/11/2022 9:06 AM 9:06 EDT AM EDT Belen Malagon MD CHEMISTRY ORDERABLES Performing Organization Address City/State/[place] [address] POCT Glucose (05/11/2022 9:02 AM EDT) P athologist Signature POC Glucose 186 65 - 199 [facility] mg/dL [facility] Comment: Supplemental ranges: <140 mg/dL before meals <180 mg/dL all other times of the day Specimen Anatomical Collection Method Collection Time Receive d Time (Source) Location / / Volume Laterality Blood 05/11/2022 9:02 AM 9:02 EDT AM EDT Belen Malagon MD POINT OF CARE TEST ORDERABLE S Performing Organization Address City/State/ZIP Code Phon e Number [place] [id number] [address] (ABNORMAL) Differential, Automated (05/11/2022 4:50 AM EDT) Patholo gist Method Time Signature Neutrophils % 76.9 % [facility] Neutr Abs (ANC) 7.31 (H) 1.70 - [facility] 6.10 [facility] x10(3)/[facility] LABORATORY Lymphocytes % 13.0 % [facility] Lymphocytes Abs 1.2 0.9 - 3.2 [facility] x10(3)/[facility] LABORATORY Monocytes % 9.2 % [facility] Monocyte Abs 0.9 0.3 - 0.9 [facility] x10(3)/[facility] LABORATORY Eosinophils % 0.0 % [facility] Eosinophils Abs 0.0 0.0 - 0.4 [facility] x10(3)/[facility] LABORATORY Basophils % 0.2 % [facility] Basophils Abs 0.0 0.0 - 0.1 [facility] x10(3)/[facility] LABORATORY Immature Gran % 0.70 % [facility] Comment: Immature granulocytes(IG's)percentage an d absolute count will include metamyelocytes, myelocytes, and promyelo cytes. Blood smears from CBCs yielding IG's will be scanned manually for concor dance. If this scan disagrees with the automated IG or if promyelocytes are not ed, a manual differential will be performed. Cathy Gran Abs 0.07 (H) 0.00 - 0.04 x10(3)/[facility] LABORATORY Specimen Anatomical Collection Method Collection Time Receive d Time (Source) Location / / Volume Laterality Blood 05/11/2022 4:50 AM 2 4:55 EDT AM EDT Resulting Agency Comment Spec In Lab John La DO HEMATOLOGY ORDERABLES Performing Organization Address City/State/Z[place] [address] (ABNORMAL) Hemogram (05/11/2022 4:50 AM EDT) Analysis Performed At Patho logist Time Signature WBC 9.5 4.0 - 9.5 [facility] x10(3)/[facility] LABORATORY RBC 4.24 (L) 4.58 - [facility] 5.54 [facility] x10(6)/[facility] LABORATORY Hemoglobin 13.2 (L) 13.7 - [facility] 16.[facility] g/dL [facility] Hematocrit 39.4 (L) 40.5 - [facility] 48.5 % [facility] MCV 92.9 82.9 - [facility] 93.1 [facility] LABORATORY MCH 31.1 27.5 - [facility] 32.1 pg [facility] MCHC 33.5 32.0 - [facility] 35.7 g/dL [facility] Platelets 256 145 - 357 [facility] x10(3)/[facility] LABORATORY RDWSD 45.1 (H) 36.0 - [facility] ARUN 45.0 [facility] LABORATORY RDWCV 13.2 11.4 - [facility] ARUN 13.8 % [facility] MPV 10.2 7.6 - 12.9 [facility] LABORATORY nRBC % Auto 0.0 % [facility] nRBC Abs Auto 0.000 0.000 - [facility] 0.[facility] x10(3)/[facility] LABORATORY Specimen Anatomical Collection Method Collection Time Receive d Time (Source) Location / / Volume Laterality Blood 05/11/2022 4:50 AM 2 4:55 EDT AM EDT Resulting Agency Comment Spec In Lab John La DO HEMATOLOGY ORDERABLES Performing Organization Address City/State/Z[place] [address] (ABNORMAL) Comprehensive metabolic panel (non-fasting) (05/11/2022 4:50 AM EDT) P athologist Signature Glucose Lvl 134 65 - 199 [facility] mg/dL [facility] Comment: Diabetes: >=200 mg/dL plus symp toms BUN 25 (H) 10 - 20 mg/dL [facility]ORY Creatinine 0.86 0.80 - 1.50 mg/dL [facility] Sodium 139 135 - 145 mmol/L [facility] Potassium 4.6 3.5 - 5.0 mmol/L [facility] Comment: Please note: ??Patients with WBC >100,00 0 may have falsely elevated Potassium levels. ??For accurate Potassium quantif ication in these patients send serum separator tube (gold top) for subsequent determinations. ??Contact the Clinical Chemistry Laboratory if there are any qu estions. Chloride 103 98 - 107 mmol/L [facility] CO2 27 22 - 31 mmol/L [facility] Anion Gap 9 5 - 15 mmol/L [facility] Calcium 8.9 8.5 - 10.5 mg/dL [facility] Total Protein 6.7 6.1 - 8.0 g/dL [facility] Albumin 3.8 3.2 - 5.2 g/dL [facility] AST 35 0 - 39 unit/L [facility] ALT 47 0 - 55 unit/L [facility] Alk Phos 121 40 - 130 unit/L [facility] Total Bilirubin <0.2 (L) 0.2 - 1.3 mg/dL [facility] Estimated GFR 103 >=60 mL/min/1.73 m?? [facility] Comment: This patient's estimated GFR [...] Organization Address City/State/ZIP Code Phon e Number [place] [id number] LAB[address] Drive Troponin (05/10/2022 10:50 PM EDT) athologist Signature Troponin-T <0.01 0.00 - 0.00 [facility] ng/mL [facility] Comment: The 99th percentile for Troponin T is le ss than 0.01 ng/mL, any detectable cTnT concentration using this assay should be considered elevated. According to the third universal definit ion of myocardial infarction the following criteria with a clinical prese ntation consistent with acute myocardial ischemia meets the diagnosis for a myocardial infarction ([place]). Detection of a rise and/or fall of [...] additional sample may be indicated. Reference: Third [place] Definition of Myocardial Infarction. Journal of the [place] [employer] 2012;60:1581-98 Specimen Anatomical Collection Method Collection Time Receive d Time (Source) Location / / Volume Laterality Blood 05/10/2022 10:50 05/10/2022 PM EDT 10:53 PM EDT Resulting Agency Comment Spec In Lab Belen Malagon MD CHEMISTRY ORDERABLES Performing Organization Address City/State/[place] [address] Rad Onc Chest [...] who have questions please contact the health child care specialist that requested your imaging first. ? Narrative [...] the chest dated May 04, 2022. FINDINGS: Sleeve Fixer Images: Noncontributory. Pulmonary parenchyma: As was noted [...] the chest dated May 04, 2022. FINDINGS: Sleeve Fixer Images: Noncontributory. Pulmonary parenchyma: As was noted [...] ho have questions please contact the health child care specialist that requested your imaging first. Electronically signed by: Bishop Cota DO, [facility] ([phone]), at 05/11/2022 7:39 AM Richy Donald MD IMG OUTSIDE INTERPRETATION O RDERABLES (ABNORMAL) Basic Metabolic Panel (non-fasting) (05/10/2022 2:52 AM EDT) athologist Signature Glucose Lvl 163 65 - 199 [facility] mg/dL [facility] Comment: Diabetes: >=200 mg/dL plus symp toms BUN 24 (H) 10 - 20 mg/dL [facility] Creatinine 0.80 0.80 - 1.50 mg/dL [facility] Sodium 139 135 - 145 mmol/L [facility] Potassium 4.6 3.5 - 5.0 mmol/L [facility] Comment: Please note: ??Patients with WBC >100,00 0 may have falsely elevated Potassium levels. ??For accurate Potassium quantif ication in these patients send serum separator tube (gold top) for subsequent determinations. ??Contact the Clinical Chemistry Laboratory if there are any qu estions. Chloride 106 98 - 107 mmol/L [facility] CO2 26 22 - 31 mmol/L [facility] Anion Gap 7 5 - 15 mmol/L [facility] Calcium 8.5 8.5 - 10.5 mg/dL [facility] Estimated GFR 105 >=60 mL/min/1.73 m?? [facility] Comment: This patient's estimated GFR [...] Organization Address City/State/[place] [address] (ABNORMAL) Hemogram (05/10/2022 2:52 AM EDT) Analysis Performed At Patho logist Time Signature WBC 9.3 4.0 - 9.5 [facility] LABORATORY RBC 4.11 (L) 4.58 - [facility] 5.54 [facility] x10(6)/[facility] LABORATORY Hemoglobin 12.8 (L) 13.7 - [facility] 16.5 g/dL [facility] Hematocrit 38.1 (L) 40.5 - [facility] 48.5 % [facility] MCV 92.7 82.9 - [facility] 93.1 [facility] LABORATORY MCH 31.1 27.5 - [facility] 32.1 pg [facility] MCHC 33.6 32.0 - [facility] 35.7 g/dL [facility] Platelets 264 145 - 357 [facility] x10(3)/[facility] LABORATORY RDWSD 45.1 (H) 36.0 - [facility].0 [facility] LABORATORY RDWCV 13.3 11.4 - [facility] AR[facility] 13.8 % [facility] MPV 10.1 7.6 - 12.9 [facility] LABORATORY nRBC % Auto 0.0 % [facility] nRBC Abs Auto 0.000 0.000 - [facility] 0.000 [facility] x10(3)/[facility] LABORATORY Specimen Anatomical Collection Method Collection Time Receive d Time (Source) Location / / Volume Laterality Blood 05/10/2022 2:52 AM 2 3:02 EDT AM EDT Resulting Agency Comment Spec In Lab Valerie Wiggins MD HEMATOLOGY ORDERABLES Performing Organization Address City/State/[place] [address] (ABNORMAL) Basic Metabolic Panel (non-fasting) (05/09/2022 5:45 AM EDT) P athologist Signature Glucose Lvl 190 65 - 199 [facility] mg/dL [facility] Comment: Diabetes: >=200 mg/dL plus symp toms BUN 23 (H) 10 - 20 mg/dL [facility] Creatinine 0.75 (L) 0.80 - 1.50 mg/dL [facility] Sodium 137 135 - 145 mmol/L [facility] Potassium 4.3 3.5 - 5.0 mmol/L [facility] [facility] Comment: Please note: ??Patients with WBC >100,00 0 may have falsely elevated Potassium levels. ??For accurate Potassium quantif ication in these patients send serum separator tube (gold top) for subsequent determinations. ??Contact the Clinical Chemistry Laboratory if there are any qu estions. Chloride 105 98 - 107 mmol/L [facility] CO2 24 22 - 31 mmol/L [facility] Anion Gap 8 5 - 15 mmol/L [facility] Calcium 8.4 (L) 8.5 - 10.5 mg/dL [facility] Estimated GFR 107 >=60 mL/min/1.73 m?? [facility] Comment: This patient's estimated GFR [...] / Volume Laterality Blood 05/09/2022 5:45 AM 2 6:06 EDT AM EDT Resulting Agency Comment Spec In Lab Valerie Wiggins MD CHEMISTRY ORDERABLES Performing Organization Address City/State/ZIP Code Phon e Number [address] (ABNORMAL) Hemogram (05/09/2022 5:45 AM EDT) Analysis Performed At Patho logist Time Signature WBC 8.7 4.0 - 9.5 [facility] LABORATORY RBC 4.32 (L) 4.58 - [place] AR[place] 5.54 [facility] x10(6)/[facility] LABORATORY Hemoglobin 13.6 (L) 13.7 - [facility] 16.[facility] g/dL [facility] Hematocrit 39.9 (L) 40.5 - [facility] 48.5 % [facility] MCV 92.4 82.9 - [facility] 93.1 [facility] LABORATORY MCH 31.5 27.5 - [place] 32.1 pg [facility] MCHC 34.1 32.0 - [place] 35.7 g/dL [facility] Platelets 279 145 - 357 [facility] x10(3)/[facility] LABORATORY RDWSD 44.8 36.0 - [facility] ARUN 45.0 [facility] LABORATORY RDWCV 13.2 11.4 - [facility] ARUN 13.8 % [facility] MPV 10.3 7.6 - 12.9 [facility] LABORATORY nRBC % Auto 0.0 % [facility] nRBC Abs Auto 0.000 0.000 - [facility] x10(3)/[facility] LABORATORY Specimen Anatomical Collection Method Collection Time Receive d Time (Source) Location / / Volume Laterality Blood 05/09/2022 5:45 AM 6:06 EDT AM EDT Resulting Agency Comment Spec In Lab Valerie Wiggins MD HEMATOLOGY ORDERABLES Performing Organization Address City/[facility]/[place] [address] Amphetamine, Urine Confirmation (05/09/2022 4:26 AM EDT) Component Value Ref Test Analysis Performed At [facility] gist Range Method Time Signature U Amphet CHRISTEN Conf Test ? Result ? Flag ??Unit ?? RefValue [facility] Amphetamines Confirmation, U H OSPITAL ??Amphetamine-by LC-MS/MS [...] and its performance characteri stics ?determined by [facility] in a manner consistent with CLIA ?requirements. This test has not been cleared or approv ed by ?the U.S. Food and Drug Administration. ?Test Performed by: ?[facility] ?[address] [place] [address] ?Puttier: Harry Angel M.D. Ph.D.; CLIA# [id number] Specimen Anatomical Collection Method Collection Time Receive d Time (Source) Location / / Volume Laterality Urine Urine / Unknown 05/09/2022 4:26 AM 2021 9:06 EDT AM EDT Resulting Agency Comment Spec In Lab Jeff Bains MD URINE ORDERABLES Performing Organization Address City/State/[place] [address] (ABNORMAL) Opioids Confirmation Panel, Urine (05/09/2022 4:26 AM EDT) Component Value Ref Test Analysis Performed At [facility] Range Method Time Signature Targeted CHRISTEN Opioid Test ?Result ? Flag ??Unit ?? RefValue mechatronic systemtechnik Panel, Urine [facility]IAL Targeted Opioid Screen, U HOSP ITAL ??List prescribed opioids ? See medica tion list LABORATORY ? ADDITIONAL INFORMATION ------ ?Accuracy and completeness of declared medications on ?reports solely dependent on information submitted by ?client. ??Codeine ? Not Detected ? ng/mL ??Cutoff: 25 ?Tylenol 3 ??Twfmzwz-6-sirf-glucuronid e ?Not Detected ? ng/mL ??Cutoff: 100 ?Metabolite of codeine ??Morphine ?Not Detected ? ng/mL ??Cutoff: 25 ?Dunia Garnett, MS Contin; Also a minor metabolite (10 %) of ?codeine and can be seen in low concentrations (<2,000 ?ng/mL) with poppy seed ingestion. ??Zhvjttmr-4-irvh-glucuroni de ? Not Detected ? ng/mL ??Cutoff: 100 ?Metabolite of morphine ??6-monoacetylmorphine ?Not Detected ? ng/mL ??Cutoff: 25 ?Metabolite of heroin ??Hydrocodone ? Not Detected ? ng/mL ??Cutoff: 25 ?Lortab, [place], Vicodin; Also a very minor metabolite o f ?codeine and impurity (<1%) of oxycodone. ??Norhydrocodone ?Not Detected ? ng/mL ??Cutoff: 25 ?Metabolite of hydrocodone ??Dihydrocodeine ?Not Detected ? ng/mL ??Cutoff: 25 ?Metabolite of hydrocodone ??Hydromorphone ? Not Detected ? ng/mL ??Cutoff: 25 ?Dilaudid, Exalgo; Also a metabolite of hydrocodone and a ?minor (<5%) metabolite of morphine. ??Bfawfjlipmqxa-4-cdsx-gluc uronide ?Present ? @ ?ng/mL ??Cutoff: 100 ?Metabolite of hydromorphone ??Oxycodone ? Not Detected ? ng/mL ??Cutoff: 25 ?Endocet, Percocet, Oxycontin ??Noroxycodone ?Not Detected ? ng/mL ??Cutoff: 25 ?Metabolite of oxycodone ??Oxymorphone ? Not Detected ? ng/mL ??Cutoff: 25 ?Numorphan, Opana; Also a metabolite of oxycodone. ??Jgjwifyuekr-1-uuyc-glucur onide ?Not Detected ? ng/mL ??Cutoff: 100 [...] ?Not Detected ? ng/mL ??Cutoff: 25 ?Narcan ??Jraoryeq-5-mbis-glucuroni de ? Not Detected ? ng/mL ??Cutoff: [...] ? ng/mL ??Cutoff: 50 ?Metabolite of tapentadol ??Pzaszgrpic-phto-ycmqelpbj de ? Not Detected ? ng/mL ??Cutoff: 100 ?Metabolite of tapentadol ??Buprenorphine ? Not Detected ? ng/mL ??Cutoff: 5 ?Buprenex, Suboxone ??Norbuprenorphine ?Not Detected ? ng/mL ??Cutoff: 5 ?Metabolite of buprenorphine ??Norbuprenorphine glucuron alexi ?Present ? @ ?ng/mL ??Cutoff: 20 ?Metabolite of buprenorphine ??Opioid Interpretation ? SEE COMMENT S ?Test detected the presence of ?ktpqjboglvdao-9-yimq-glucuronide the metabolite of ?hydromorphone. Suspect use of hydromorphone within the past ?three days. ?Test detected the presence of norbuprenorphine glucuro nide ?(metabolite of buprenorphine) only. Suspect use of ?buprenorphine within the past three days. ? ADDITIONAL INFORMATION ------ ?This test was developed and its performance characteri stics ?determined by [facility] in a manner consistent with CLIA ?requirements. This test has not been cleared or approv ed by ?the U.S. Food and Drug Administration. ?Test Performed by: ?[facility] - [facility] ?[address] [place] [address] ?Puttier: Harry Angel M.D. Ph.D.; CLIA# [id number] (A) Specimen Anatomical Collection Method Collection Time Receive d Time (Source) Location / / Volume Laterality Urine Urine / Unknown 05/09/2022 4:26 AM 2021 9:06 EDT AM EDT Jeff Bains MD URINE ORDERABLES Performing Organization Address City/State/ZIP Code Phon e Number [place] [address] (ABNORMAL) Rapid Drug Screen w/ Confirmation, Urine (05/09/2022 4:26 AM EDT) [facility] Method Time Signature U Barbiturates None None [place]STEN Screen Detected Detected [facility] Comment: The barbiturate screen [...] U Benzodiazepines Screen None Detected None Detected [facility] Comment: The benzodiazepines screen detects [...] U Cocaine Screen None Detected None Detected [facility] Comment: The cocaine metabolites screen detects b enzoylecgonine (Cocaine Metabolite) at concentrations >150 ng/mL. A ? Presumptive Positive? result indicates that the screening result was positive but has not yet been confirmed by a highly-specific method. As with any screen, occasional false positive re sults from cross-reacting substances may occur. Not for Medico-Legal Purposes. U Methadone Metabolites None Detected None Detected [facility] Comment: The methadone metabolite screen detects EDDP (major methadone metabolite) at concentrations >100 ng/mL. A ? Presumptive Positive? result indicates that the screening result was positive but has not yet been confirmed by a highly-specific method. As with any screen, occasional false positive re sults from cross-reacting substances may occur. Not for Medico-Legal Purposes. U Opiate Screen None Detected None Detected [facility] Comment: The opiates screen detects opiates at co ncentrations >300 ng/mL. Please note that oxycodone, oxymorphone, fentanyl, tramadol, and other synthetic opioids are not detected by [facility] opiate screen. A ? Presumptive Positive? result indicates that the screening result was positive but has not yet been confirmed by a highly-specific method. As with any screen, occasional false positive re sults from cross-reacting substances may occur. Not for Medico-Legal Purposes. U Cannabinoid Screen None Detected None Detected Jaky HOWE [facility] Comment: The marijuana metabolites screen detects the THC metabolite (12-uvw-8-carboxy-delta 9-THC) at concen trations >20 ng/mL. A ? Presumptive Positive? result indicates that the screening result was positive but has not yet been confirmed by a highly-specific method. As with any screen, occasional false positive re sults from cross-reacting substances may occur. Not for Medico-Legal Purposes. U Oxycodone Screen None Detected None Detected [facility] Comment: The oxycodone screen detects oxycodone a nd oxymorphone at concentrations >100 ng/mL. A ? Presumptive Positive? result indicates that the screening result was positive but has not yet been confirmed by a highly-specific method. As with any screen, occasional false positive re sults from cross-reacting substances may occur. Not for Medico-Legal Purposes. U Buprenorphine Screen Presumptive Pos (A) None Detected [facility] Comment: The buprenorphine screen detects bupreno rphine at concentrations >5 ng/mL. A ? Presumptive Positive? result indicates that the screening result was positive but has not yet been confirmed by a highly-specific method. As with any screen, occasional false positive re sults from cross-reacting substances may occur. Not for Medico-Legal Purposes. U Fentanyl Screen None Detected None Detected Jaky SHAHRAM [facility] Comment: The fentanyl screen detects fentanyl at concentrations >2 ng/mL. A ? Presumptive Positive? result indicates that the screening result was positive but has not yet been confirmed by a highly-specific method. As with any screen, occasional false positive re sults from cross-reacting substances may occur. Not for Medico-Legal Purposes. U Tricyclics Screen None Detected None Detected GENEVIEVE CAM [facility] Comment: The tricyclics screen [...] U Ethanol Screen None Detected None Detected [facility] Comment: This urine ethanol assay detect s ethanol at concentrations >/= 100 mg/L. U Amphetamines Screen Presumptive Pos (A) None Detected [facility] Comment: The amphetamine screen detects [...] Screen Suspected (A) None Detected Jaky HOWE [facility] Comment: An adulteration screen [...] Organization Address City/State/[place] [address] Rapid Drug Screen, Urine (AKIRA Request) (05/09/2022 4:26 AM EDT) [facility] Method Time Signature AKIRA Conf Yes [facility] LABORATORY AKIRA Requested See Comment [facility] Comment: Refer to Rapid Drug Screen w/ C onfirmation, Urine for results. Specimen Anatomical Collection Method Collection Time Receive d Time (Source) Location / / Volume Laterality Urine Urine / Unknown 05/09/2022 4:26 AM 2021 3:18 EDT PM EDT Resulting Agency Comment Spec In Lab Jeff Bains MD URINE ORDERABLES Performing Organization Address City/State/ZIP [place] [address] (ABNORMAL) Rapid Drug Screen w/o Confirmation, Urine (05/09/2022 4:25 AM EDT) [facility] Method Time Signature U Barbiturates None None [place]STEN Screen Detected Detected [facility] Comment: The barbiturate screen [...] U Benzodiazepines Screen None Detected None Detected [facility] Comment: The benzodiazepines screen detects [...] U Cocaine Screen None Detected None Detected [facility] Comment: The cocaine metabolites screen detects b enzoylecgonine (Cocaine Metabolite) at concentrations >150 ng/mL. A ? Presumptive Positive? result indicates that the screening result was positive but has not yet been confirmed by a highly-specific method. As with any screen, occasional false positive re sults from cross-reacting substances may occur. Not for Medico-Legal Purposes. U Methadone Metabolites None Detected None Detected [facility]ORY Comment: The methadone metabolite screen detects EDDP (major methadone metabolite) at concentrations >100 ng/mL. A ? Presumptive Positive? result indicates that the screening result was positive but has not yet been confirmed by a highly-specific method. As with any screen, occasional false positive re sults from cross-reacting substances may occur. Not for Medico-Legal Purposes. U Opiate Screen None Detected None Detected [facility] Comment: The opiates screen detects opiates at co ncentrations >300 ng/mL. Please note that oxycodone, oxymorphone, fentanyl, tramadol, and other synthetic opioids are not detected by [facility] opiate screen. A ? Presumptive Positive? result indicates that the screening result was positive but has not yet been confirmed by a highly-specific method. As with any screen, occasional false positive re sults from cross-reacting substances may occur. Not for Medico-Legal Purposes. U Cannabinoid Screen Presumptive Pos (A) None Detected [facility] Comment: The marijuana metabolites screen detects the THC metabolite (75-tzr-8-carboxy-delta 9-THC) at concen trations >20 ng/mL. A ? Presumptive Positive? result indicates that the screening result was positive but has not yet been confirmed by a highly-specific method. As with any screen, occasional false positive re sults from cross-reacting substances may occur. Not for Medico-Legal Purposes. U Oxycodone Screen None Detected None Detected [facility] Comment: The oxycodone screen detects oxycodone a nd oxymorphone at concentrations >100 ng/mL. A ? Presumptive Positive? result indicates that the screening result was positive but has not yet been confirmed by a highly-specific method. As with any screen, occasional false positive re sults from cross-reacting substances may occur. Not for Medico-Legal Purposes. U Buprenorphine Screen Presumptive Pos (A) None Detected [facility] Comment: The buprenorphine screen detects bupreno rphine at concentrations >5 ng/mL. A ? Presumptive Positive? result indicates that the screening result was positive but has not yet been confirmed by a highly-specific method. As with any screen, occasional false positive re sults from cross-reacting substances may occur. Not for Medico-Legal Purposes. U Fentanyl Screen None Detected None Detected Jaky HOWE [facility] Comment: The fentanyl screen detects fentanyl at concentrations >2 ng/mL. A ? Presumptive Positive? result indicates that the screening result was positive but has not yet been confirmed by a highly-specific method. As with any screen, occasional false positive re sults from cross-reacting substances may occur. Not for Medico-Legal Purposes. U Tricyclics Screen None Detected None Detected GENEVIEVE [facility] Comment: The tricyclics screen detects tricyclic [...] U Ethanol Screen None Detected None Detected [facility] Comment: This urine ethanol assay detect s ethanol at concentrations >/= 100 mg/L. U Amphetamines Screen Presumptive Pos (A) None Detected [facility] Comment: The amphetamine screen detects [...] Screen Suspected (A) None Detected Jaky HOWE [facility] Comment: An adulteration screen [...] Organization Address City/State/[place] [address] Rapid Drug Screen, Urine (AKIRA Request) (05/09/2022 4:25 AM EDT) [facility] Method Time Signature AKIRA Conf No [facility] LABORATORY AKIRA Requested See Comment [facility] Comment: Refer to Rapid Drug Screen w/o Confirmation, Urine for results. Specimen Anatomical Collection Method Collection Time Receive d Time (Source) Location / / Volume Laterality Urine 05/09/2022 4:25 AM 2 4:34 EDT AM EDT Resulting Agency Comment Spec In Lab Belen Malagon MD URINE ORDERABLES Performing Organization Address City/State/ZIP [place] [address] (ABNORMAL) Basic Metabolic Panel (non-fasting) (05/08/2022 8:19 AM EDT) athologist Signature Glucose Lvl 123 65 - 199 [facility] mg/dL [facility] Comment: Diabetes: >=200 mg/dL plus symp toms BUN 24 (H) 10 - 20 mg/dL [facility] Creatinine 0.86 0.80 - 1.50 mg/dL [facility] Sodium 135 135 - 145 mmol/L [facility] Potassium 4.6 3.5 - 5.0 mmol/L [facility] Comment: Please note: ??Patients with WBC >100,00 0 may have falsely elevated Potassium levels. ??For accurate Potassium quantif ication in these patients send serum separator tube (gold top) for subsequent determinations. ??Contact the Clinical Chemistry Laboratory if there are any qu estions. Chloride 103 98 - 107 mmol/L [facility] CO2 25 22 - 31 mmol/L [facility] Anion Gap 7 5 - 15 mmol/L [facility] Calcium 9.1 8.5 - 10.5 mg/dL [facility] Estimated GFR 103 >=60 mL/min/1.73 m?? [facility] Comment: This patient's estimated GFR [...] / Volume Laterality Blood 05/08/2022 8:19 AM 2 8:45 EDT AM EDT Resulting Agency Comment Spec In Lab Valerie Wiggins MD CHEMISTRY ORDERABLES Performing Organization Address City/State/[place] [address] (ABNORMAL) Hemogram (05/08/2022 8:19 AM EDT) Analysis Performed At Patho logist Time Signature WBC 10.6 (H) 4.0 - 9.5 [facility] x[facility](3[facility] LABORATORY RBC 4.61 4.58 - [place] [facility] 5.54 [facility] x10(6)/[facility] LABORATORY Hemoglobin 14.4 13.7 - [facility] ARUN 16.5 g/dL [facility] Hematocrit 41.4 40.5 - [facility] ARUN 48.5 % [facility] MCV 89.8 82.9 - [facility] ARUN 93.1 [facility] LABORATORY MCH 31.2 27.5 - [place] 32.1 pg [facility] MCHC 34.8 32.0 - [facility] ARUN 35.7 g/dL [facility] Platelets 287 145 - 357 [facility] x10(3)/[facility] LABORATORY RDWSD 43.3 36.0 - [place] 45.0 [facility] LABORATORY RDWCV 13.1 11.4 - [place] AR[place] 13.8 % [facility] MPV 10.1 7.6 - 12.9 [facility] nRBC % Auto 0.0 % [facility] nRBC Abs Auto 0.000 0.000 - [place] ARUN 0.000 [facility] x10(3)/[facility] LABORATORY Specimen Anatomical Collection Method Collection Time Receive d Time (Source) Location / / Volume Laterality Blood 05/08/2022 8:19 AM 2 8:45 EDT AM EDT Resulting Agency Comment Spec In Lab Valerie Wiggins MD HEMATOLOGY ORDERABLES Performing Organization Address City/State/[place] [address] MRI Brachial Plexus w [...] who have questions please contact the health child care specialist that requested your imaging first. ? Narrative [...] ho have questions please contact the health child care specialist that requested your imaging first. Electronically signed by: Darwin Braden MD, [facility] ([phone]), at 05/08/2022 9:32 AM Chema Alicea MD IMG MRI ORDERABLES EKG [...] 418 ms MUSE SYSTEM (Bezet) Calculated P Downing 2 degrees MUSE SYSTEM Calculated R Downing 34 degrees MUSE SYSTEM Calculated T Downing 40 degrees MUSE SYSTEM INTERPRETATION Normal sinus rhythm MUSE SYSTEM Minimal voltage criteria for LVH, may be normal variant ( So kolow-Ash ) Borderline ECG When compared with ECG of 04-MAY-2022 15:36, Premature ventricular complexes are no longer Present Confirmed by MD Hai, Eduin ([id number]) on 05/10/2022 9:22 :27 AM Specimen Anatomical Collection Method Collection Time Receive d Time (Source) Location / / Volume Laterality 05/07/2022 2:42 PM 2 9:22 EDT AM EDT Chema Alicea MD ECG ORDERABLES Performing Organization Address City/State/ZIP Code Phon e Number MUSE SYSTEM Amphetamine, Urine Confirmation (05/07/2022 10:00 AM EDT) Component Value Ref Test Analysis Performed At [facility] Range Method Time Signature U Amphet CHRISTEN Conf Test ? Result ? Flag ??Unit ?? RefValue [facility] Amphetamines Confirmation, U H OSPITAL ??Amphetamine-by LC-MS/MS [...] and its performance characteri stics ?determined by [facility] in a manner consistent with CLIA ?requirements. This test has not been cleared or approv ed by ?the U.S. Food and Drug Administration. ?Test Performed by: ?[facility] ?[address] [place] [address] ?Puttier: Harry Angel M.D. Ph.D.; CLIA# [id number] Specimen Anatomical Collection Method Collection Time Receive d Time (Source) Location / / Volume Laterality Urine 05/07/2022 10:00 05/07/2022 4:20 AM EDT PM EDT Resulting Agency Comment Spec In Lab Jeff Bains MD URINE ORDERABLES Performing Organization Address City/State/Z[place] [address] THC (Marijuana), Urine Confirmation (05/07/2022 10:00 AM EDT) Component Value Ref Test Analysis Performed At Patholo gist Range Method Time Signature U THC Conf CHRISTEN Test ? Result ?Flag ??Unit ?? RefValue [facility] Carboxy-THC Confirmation, U HO SPITAL ??Carboxy-THC- by GC/MS ?17 ?ng/mL ??Cutoff: 3.0 LABORATORY ??Carboxy-THC Interpretation ? Positive. ? ADDITIONAL INFORMATION ------ ?This report is intended for use in clinical monitoring and ?management of patients. ??It is not intended for use i n ?employment-related testing. ?This test was developed and its performance characteri stics ?determined by [facility] in a manner consistent with CLIA ?requirements. This test has not been cleared or approv ed by ?the U.S. Food and Drug Administration. ?Test Performed by: ?[facility] ?[address] [place] [address] ?Puttier: Harry Angel M.D. Ph.D.; CLIA# [id number] Specimen Anatomical Collection Method Collection Time Receive d Time (Source) Location / / Volume Laterality Urine 05/07/2022 10:00 05/07/2022 4:20 AM EDT PM EDT Resulting Agency Comment Spec In Lab Jeff Bains MD URINE ORDERABLES Performing Organization Address City/State/ZIP Code Phon e Number [place] [id number] (ABNORMAL) Opioids Confirmation Panel, Urine (05/07/2022 10:00 AM EDT) Component Value Ref Test Analysis Performed At [facility] Range Method Time Signature Targeted [facility] Opioid Test ?Result ? Flag ??Unit ?? RefValue ARUN Panel, Urine [facility] Targeted Opioid Screen, U HOSP ITAL ??List prescribed opioids ? See medica tion list LABORATORY ? ADDITIONAL INFORMATION ------ ?Accuracy and completeness of declared medications on ?reports solely dependent on information submitted by ?client. ??Codeine ? Not Detected ? ng/mL ??Cutoff: 25 ?Tylenol 3 ??Kipuceo-6-wzni-glucuronid e ?Not Detected ? ng/mL ??Cutoff: 100 ?Metabolite of codeine ??Morphine ?Not Detected ? ng/mL ??Cutoff: 25 ?Avinza, Dun[place], MS Contin; Also a minor metabolite (10 %) of ?codeine and can be seen in low concentrations (<2,000 ?ng/mL) with poppy seed ingestion. ??Uertujmu-7-zrtx-glucuroni de ? Not Detected ? ng/mL ??Cutoff: 100 ?Metabolite of morphine ??6-monoacetylmorphine ?Not Detected ? ng/mL ??Cutoff: 25 ?Metabolite of heroin ??Hydrocodone ? Not Detected ? ng/mL ??Cutoff: 25 ?Lortab, [place], Vicodin; Also a very minor metabolite o f ?codeine and impurity (<1%) of oxycodone. ??Norhydrocodone ?Not Detected ? ng/mL ??Cutoff: 25 ?Metabolite of hydrocodone ??Dihydrocodeine ?Not Detected ? ng/mL ??Cutoff: 25 ?Metabolite of hydrocodone ??Hydromorphone ? Present ? @ ?ng/mL ??Cutoff: 25 ?Dilaudid, Exalgo; Also a metabolite of hydrocodone and a ?minor (<5%) metabolite of morphine. ??Bkwnusouthzoi-8-pqay-gluc uronide ?Present ? @ ?ng/mL ??Cutoff: 100 ?Metabolite of hydromorphone ??Oxycodone ? Not Detected ? ng/mL ??Cutoff: 25 ?Endocet, Percocet, Oxycontin ??Noroxycodone ?Present ? @ ?ng/mL ??Cutoff: 25 ?Metabolite of oxycodone ??Oxymorphone ? Not Detected ? ng/mL ??Cutoff: 25 ?Numorphan, Opana; Also a metabolite of oxycodone. ??Zgvykqrdqsc-2-gwch-glucur onide ?Not Detected ? ng/mL ??Cutoff: 100 [...] ?Not Detected ? ng/mL ??Cutoff: 25 ?Narcan ??Jlfnsjtn-4-vexm-glucuroni de ? Not Detected ? ng/mL ??Cutoff: [...] ? ng/mL ??Cutoff: 50 ?Metabolite of tapentadol ??Lmqitleplh-hkqd-bbyeytkfa de ? Not Detected ? ng/mL ??Cutoff: 100 ?Metabolite of tapentadol ??Buprenorphine ? Not Detected ? ng/mL ??Cutoff: 5 ?Buprenex, Suboxone ??Norbuprenorphine ?Not Detected ? ng/mL ??Cutoff: 5 ?Metabolite of buprenorphine ??Norbuprenorphine glucuron alexi ?Not Detected ? ng/mL ??Cutoff: 20 ?Metabolite of buprenorphine ??Opioid Interpretation ? SEE COMMENT S ?Test detected the presence of hydromorphone and one of its ?metabolites (jvgicxmeorftj-4-doqh-glucuronide). Suspec t use ?of hydromorphone within the past three days. ?Test detected the presence of noroxycodone (metabolite of ?oxycodone) only. Suspect use of oxycodone within the p ast ?three days. ? ADDITIONAL INFORMATION ------ ?This test was developed and its performance characteri stics ?determined by [facility] in a manner consistent with CLIA ?requirements. This test has not been cleared or approv ed by ?the U.S. Food and Drug Administration. ?Test Performed by: ?[facility] ?[address] [place] [address] ?Puttier: Harry Angel M.D. Ph.D.; CLIA# [id number] ([id number]) Specimen Anatomical Collection Method Collection Time Receive d Time (Source) Location / / Volume Laterality Urine 05/07/2022 10:00 05/07/2022 4:20 AM EDT PM EDT Jeff Bains MD URINE ORDERABLES Performing Organization Address City/State/[place] [address] (ABNORMAL) Rapid Drug Screen w/ Confirmation, Urine (05/07/2022 10:00 AM EDT) [facility] Method Time Signature U Barbiturates None None [facility] Screen Detected Detected [facility] LABORATORY Comment: The barbiturate screen [...] U Benzodiazepines Screen None Detected None Detected [facility] LABORATORY Comment: The benzodiazepines screen detects [...] U Cocaine Screen None Detected None Detected [facility] LABOR[facility]ORY Comment: The cocaine metabolites screen detects b enzoylecgonine (Cocaine Metabolite) at concentrations >150 ng/mL. A ? Presumptive Positive? result indicates that the screening result was positive but has not yet been confirmed by a highly-specific method. As with any screen, occasional false positive re sults from cross-reacting substances may occur. Not for Medico-Legal Purposes. U Methadone Metabolites None Detected None Detected [facility] LABORATORY Comment: The methadone metabolite screen [...] Opiate Screen Presumptive Pos (A) None Detected [facility] LABOR[facility] Comment: The opiates screen detects [...] Cannabinoid Screen Presumptive Pos (A) None Detected [facility] LABOR[facility] Comment: The marijuana metabolites screen detects the THC metabolite (80-ffx-7-carboxy-delta 9-THC) at concen trations >20 ng/mL. A ? Presumptive Positive? result indicates that the screening result was positive but has not yet been confirmed by a highly-specific method. As with any screen, occasional false positive re sults from cross-reacting substances may occur. Not for Medico-Legal Purposes. U Oxycodone Screen None Detected None Detected [facility] LABOR[facility] Comment: The oxycodone screen detects oxycodone a nd oxymorphone at concentrations >100 ng/mL. A ? Presumptive Positive? result indicates that the screening result was positive but has not yet been confirmed by a highly-specific method. As with any screen, occasional false positive re sults from cross-reacting substances may occur. Not for Medico-Legal Purposes. U Buprenorphine Screen Presumptive Pos (A) None Detected [facility] LABOR[facility] Comment: The buprenorphine screen detects bupreno rphine at concentrations >5 ng/mL. A ? Presumptive Positive? result indicates that the screening result was positive but has not yet been confirmed by a highly-specific method. As with any screen, occasional false positive re sults from cross-reacting substances may occur. Not for Medico-Legal Purposes. U Fentanyl Screen None Detected None Detected Jaky HOWE [facility] LABORATORY Comment: The fentanyl screen detects fentanyl at concentrations >2 ng/mL. A ? Presumptive Positive? result indicates that the screening result was positive but has not yet been confirmed by a highly-specific method. As with any screen, occasional false positive re sults from cross-reacting substances may occur. Not for Medico-Legal Purposes. U Tricyclics Screen None Detected None Detected GENEVIEVE CAM [facility] LABORATORY Comment: The tricyclics screen [...] U Ethanol Screen None Detected None Detected [facility]OR[facility] Comment: This urine ethanol assay detect s ethanol at concentrations >/= 100 mg/L. U Amphetamines Screen Presumptive Pos (A) None Detected [facility] LABORATORY Comment: The amphetamine screen detects [...] Screen None Detected None Detected Jaky HOWE [facility] LABORATORY Comment: No adulteration or [...] Bains MD CHEMISTRY ORDERABLES Performing Organization Address City/[facility]/ZIP Code Phon e Number [address] Rapid Drug Screen, Urine (AKIRA Request) (05/07/2022 10:00 AM EDT) Patholo gist Method Time Signature AKIRA Conf Yes [facility] LABORATORY AKIRA Requested See Comment [facility] LABORATORY Comment: Refer to Rapid Drug Screen w/ C onfirmation, Urine for results. Specimen Anatomical Collection Method Collection Time Receive d Time (Source) Location / / Volume Laterality Urine 05/07/2022 10:00 05/07/2022 AM EDT 10:12 AM EDT Resulting Agency Comment Spec In Lab Chema Alicea MD URINE ORDERABLES Performing Organization Address City/[facility]/ZIP Code Phon e Number [address] Basic Metabolic Panel (non-fasting) (05/07/2022 9:45 AM EDT) P athologist Signature Glucose Lvl 120 65 - 199 [facility] mg/dL [facility] LABORATORY Comment: Diabetes: >=200 mg/dL plus symp toms BUN 20 10 - 20 mg/dL [facility] LABORATORY Creatinine 0.95 0.80 - 1.50 mg/dL [facility] LABORATORY Sodium 137 135 - 145 mmol/L [facility] LABORATORY Potassium 4.6 3.5 - 5.0 mmol/L [facility] LABORATORY Comment: Please note: ??Patients with WBC >100,00 0 may have falsely elevated Potassium levels. ??For accurate Potassium quantif ication in these patients send serum separator tube (gold top) for subsequent determinations. ??Contact the Clinical Chemistry Laboratory if there are any qu estions. Chloride 100 98 - 107 mmol/L [facility] LABOR[facility] CO2 28 22 - 31 mmol/L [facility] Anion Gap 9 5 - 15 mmol/L [facility] LABORATORY Calcium 9.5 8.5 - 10.5 mg/dL [facility] LABORATORY Estimated GFR 95 >=60 mL/min/1.73 m?? [facility] Comment: This patient's estimated GFR [...] Organization Address City/State/[place] [address] (ABNORMAL) Hemogram (05/07/2022 9:45 AM EDT) Analysis Performed At Patho logist Time Signature WBC 10.6 (H) 4.0 - 9.5 [facility] x[facility](3[facility] LABORATORY RBC 4.89 4.58 - [facility] ARUN 5.54 [facility] x10(6)/[facility] LABORATORY Hemoglobin 15.3 13.7 - [facility] 16.5 g/dL [facility] LABORATORY Hematocrit 43.9 40.5 - [facility] ARUN 48.5 % [facility] LABORATORY MCV 89.8 82.9 - [facility] ARUN 93.1 fL [facility] LABORATORY MCH 31.3 27.5 - [facility] ARUN 32.1 pg [facility] MCHC 34.9 32.0 - [facility] ARUN 35.7 g/dL [facility] LABOR[facility] Platelets 307 145 - 357 [facility] x10(3)/[facility] LABORATORY RDWSD 42.7 36.0 - [facility] 45.0 [facility] LABORATORY RDWCV 13.0 11.4 - [facility] 13.8 % [facility] LABORATORY MPV 9.9 7.6 - 12.9 [facility] LABORATORY nRBC % Auto 0.0 % [facility] LABORATORY nRBC Abs Auto 0.000 0.000 - [facility] 0.000 [facility] x10(3)/[facility] LABORATORY Specimen Anatomical Collection Method Collection Time Receive d Time (Source) Location / / Volume Laterality Blood 05/07/2022 9:45 AM EDT 10:06 AM EDT Resulting Agency Comment Spec In Lab Valerie Wiggins MD HEMATOLOGY ORDERABLES Performing Organization Address City/State/ZIP Code Phon e Number [address] POCT Glucose (05/06/2022 10:45 AM EDT) P athologist Signature POC Glucose 125 65 - 199 [facility] mg/dL [facility] LABORATORY Comment: Supplemental ranges: <140 mg/dL before meals <180 mg/dL all other times of the day Specimen Anatomical Collection Method Collection Time Receive d Time (Source) Location / / Volume Laterality Blood 05/06/2022 10:45 05/06/2022 AM EDT 10:45 AM EDT Chema Alicea MD POINT OF CARE TEST ORDERABLE S Performing Organization Address City/State/[place] [address] UPPER EUS-ENDOSCOPIC ULTRASOUND (05/06/2022 9:33 AM EDT) Component Value Ref Test Analysis [facility]formed [facility] Method Time Signature UPPER [facility] PROVATION ENDOSCOPIC Endoscopy ULTRASOUND _ Procedure Date: 05/06/2022 9:33 AM ? Patient Name: Carley Palomares ? Date of : 1965 ? Age: 56 ? Order #: [id number] ? Instrument Name: [id number] ? Procedure: ? Upper EUS Indications: ? Abnormal CT of the GI tract Providers: ? Braulio Nascimento , ? Dre Myers Referring MD: ?Chema Davila Medicines: ? Propofol per Anesthesia Complications: ? [...] Procedure Code(s): ? --- Professional --- ? 35838, Esophagogastroduode noscopy, ? flexible, transoral; with ? [...] K22.2, Esophageal obstruct ion CPT copyright 2020 [employer]. All rights reserved. The codes documented in this report are preliminary and upon senior foreman review may be revised to meet current [...] Metabolic Panel (non-fasting) (05/06/2022 6:07 AM EDT) athologist Signature Glucose Lvl 133 65 - 199 [facility] mg/dL [facility] LABORATORY Comment: Diabetes: >=200 mg/dL plus symp toms BUN 21 (H) 10 - 20 mg/dL [facility] LABORATORY Creatinine 0.80 0.80 - 1.50 mg/dL [facility] LABORATORY Sodium 133 (L) 135 - 145 mmol/L [facility] LABORATORY Potassium 4.4 3.5 - 5.0 mmol/L [facility] LABORATORY Comment: Please note: ??Patients with WBC >100,00 0 may have falsely elevated Potassium levels. ??For accurate Potassium quantif ication in these patients send serum separator tube (gold top) for subsequent determinations. ??Contact the Clinical Chemistry Laboratory if there are any qu estions. Chloride 102 98 - 107 mmol/L [facility] LABOR[facility] CO2 23 22 - 31 mmol/L [facility] Anion Gap 8 5 - 15 mmol/L [facility] LABORATORY Calcium 8.9 8.5 - 10.5 mg/dL [facility] LABORATORY Estimated GFR 105 >=60 mL/min/1.73 m?? [facility] Comment: This patient's estimated GFR [...] Organization Address City/State/Z[place] [address] (ABNORMAL) Hemogram (05/06/2022 6:07 AM EDT) Analysis Performed At Patho logist Time Signature WBC 11.0 (H) 4.0 - 9.5 [facility] x10(3)/[facility] LABORATORY RBC 4.64 4.58 - [facility] 5.54 [facility] x10(6)/[facility] LABORATORY Hemoglobin 14.8 13.7 - [facility] 16.5 g/dL [facility] LABORATORY Hematocrit 40.7 40.5 - [facility] 48.5 % [facility] LABORATORY MCV 87.7 82.9 - [facility] DIAS 93.1 [facility] LABORATORY MCH 31.9 27.5 - [facility]STEN VUONGCK 32.1 pg [facility] LABORATORY MCHC 36.4 (H) 32.0 - [facility]ST[facility] DIAS 35.7 g/dL [facility] Platelets 296 145 - 357 [facility] DIAS x10(3)/[facility] LABORATORY RDWSD 41.4 36.0 - [facility]ST[facility] DIAS 45.0 [facility] LABORATORY RDWCV 12.9 11.4 - [facility] ARUN 13.8 % [facility] LABORATORY MPV 9.9 7.6 - 12.9 CHRISTEN DIAS [facility] LABORATORY nRBC % Auto 0.0 % [facility] LABORATORY nRBC Abs Auto 0.000 0.000 - [facility] DIAS 0.000 [facility] x10(3)/[facility] LABORATORY Specimen Anatomical Collection Method Collection Time Receive d Time (Source) Location / / Volume Laterality Blood 05/06/2022 6:07 AM 6:45 EDT AM EDT Resulting Agency Comment Spec In Lab Valerie Wiggins MD HEMATOLOGY ORDERABLES Performing Organization Address City/State/[place] [address] Abdomen & Pelvis [...] who have questions please contact the health child care specialist that requested your imaging first. ? Electronically signed by: Katlyn Pfeiffer MD, [facility] ([phone]), at 05/05/2022 1:45 PM Narrative 05/05/2022 1:45 [...] ho have questions please contact the health child care specialist that requested your imaging first. Electronically signed by: Katlyn Pfeiffer MD, [facility] ([phone]), at 05/05/2022 1:45 PM Valerie Wiggins MD IMG CT ORDERABLES MRI [...] who have questions please contact the health child care specialist that requested your imaging first. ? Electronically signed by: Bishop Otto [facility] ([phone]), at 05/05/2022 10:31 AM Narrative 05/05/2022 10:31 AM EDT EXAMINATION: MRI BRAIN WWO CONTRAST (GENERIC) CLINICAL HISTORY: Brain/BOILER FIREMAN neoplasm, st aging history of left upper [...] normal. Fluid and mucosal thickening of the billing adjudicator nically deformed left maxillary sinus.. Mild dependent fluid in right anterior e thmoid air cells. Mastoid air cells are clear. Procedure Note Bishop Otto MD - 05/05/2022Formatti ng of this note might be different from the original. EXAMINATION: MRI BRAIN WWO CONTRAST (GEN CARLEY) CLINICAL HISTORY: Brain/BOILER FIREMAN neoplasm, st aging history of left upper [...] normal. Fluid and mucosal thickening of the billing adjudicator nically deformed left maxillary sinus.. Mild dependent [...] ho have questions please contact the health child care specialist that requested your imaging first. Electronically signed by: Bishop Otto [facility] ([phone]), at 05/05/2022 10:31 AM Valerie Wiggins MD IMG MRI ORDERABLES Gold Tube HOLD (05/05/2022 7:20 AM EDT) athologist Signature Gold Hold Sample in [facility]. [facility] LABORATORY Specimen Anatomical Collection Method Collection Time Receive d Time (Source) Location / / Volume Laterality Blood Venous Draw / 05/05/2022 7:20 AM 05/05/20 7:40 Unknown EDT AM EDT Cherelle Ochoa MD CHEMISTRY ORDERABLES Performing Organization Address City/State/[place] [address] Lactate Dehydrogenase (05/05/2022 7:20 AM EDT) athologist Signature LDH 214 110 - 220 [facility] unit/L [facility] LABORATORY Specimen Anatomical Collection Method Collection Time Receive d Time (Source) Location / / Volume Laterality Blood 05/05/2022 7:20 AM 7:40 EDT AM EDT Resulting Agency Comment Spec In Lab Valerie Wiggins MD CHEMISTRY ORDERABLES Performing Organization Address City/State/Z[place] [address] (ABNORMAL) CMP w/fasting Glucose (05/05/2022 7:20 AM EDT) athologist Signature Glucose 116 (H) 65 - 99 [facility] Fasting mg/dL [facility] LABORAT[facility] Comment: ?Fasting* Glucose Interpretive C [...] of Diabetes Mellitus, Position Statement from the [place]. ??Diabete s Care, Volume 33, Supplement 1, Oct 2009 BUN 19 10 - 20 mg/dL [facility] LABORATORY Creatinine 0.73 (L) 0.80 - 1.50 mg/dL [facility] LABORATORY Sodium 136 135 - 145 mmol/L [facility] LABORATORY Potassium 4.6 3.5 - 5.0 mmol/L [facility] LABORATORY Comment: Please note: ??Patients with WBC >100,00 0 may have falsely elevated Potassium levels. ??For accurate Potassium quantif ication in these patients send serum separator tube (gold top) for subsequent determinations. ??Contact the Clinical Chemistry Laboratory if there are any qu estions. Chloride 104 98 - 107 mmol/L [facility] CO2 23 22 - 31 mmol/L [facility] Anion Gap 9 5 - 15 mmol/L [facility] LABORATORY Calcium 8.8 8.5 - 10.5 mg/dL [facility] LABORATORY Total Protein 7.5 6.1 - 8.0 g/dL [facility] LABORATORY Albumin 3.9 3.2 - 5.2 g/dL [facility] AST 37 0 - 39 unit/L [facility] LABORATORY ALT 37 0 - 55 unit/L [facility] LABORATORY Alk Phos 79 40 - 130 unit/L [facility] Total Bilirubin 0.4 0.2 - 1.3 mg/dL [facility] LABORATORY Estimated GFR 108 >=60 mL/min/1.73 m?? [facility] Comment: This patient's estimated GFR [...] Organization Address City/State/Z[place] [address] (ABNORMAL) Hemogram (05/05/2022 7:20 AM EDT) Analysis Performed At Patho logist Time Signature WBC 15.2 (H) 4.0 - 9.5 [facility] x10(3)/[facility] LABORATORY RBC 4.80 4.58 - [facility] VUONGCK 5.54 [facility] x10(6)/[facility] LABORATORY Hemoglobin 15.0 13.7 - [facility] MENDEZCOCK 16.5 g/dL [facility] LABORAT[facility] Hematocrit 42.5 40.5 - CHRISTEN IYERARUN 48.5 % [facility] LABORATORY MCV 88.5 82.9 - [facility] 93.1 [facility] LABORATORY MCH 31.3 27.5 - CHRISTEN IYERARUN 32.1 pg [facility] LABORAT[facility] MCHC 35.3 32.0 - [facility] 35.7 g/dL [facility]OR[facility] Platelets 292 145 - 357 [facility] x10(3)/[facility] LABORATORY RDWSD 42.2 36.0 - [facility] ARUN 45.0 [facility] RDWCV 13.0 11.4 - [facility] 13.8 % [facility] LABORATORY MPV 9.9 7.6 - 12.9 [facility] LABORATORY nRBC % Auto 0.0 % [facility] LABORATORY nRBC Abs Auto 0.000 0.000 - [facility] 0.000 [facility] x10(3)/[facility] LABORATORY Specimen Anatomical Collection Method Collection Time Receive d Time (Source) Location / / Volume Laterality Blood 05/05/2022 7:20 AM 7:40 EDT AM EDT Resulting Agency Comment Spec In Lab Valerie Wiggins MD HEMATOLOGY ORDERABLES Performing Organization Address City/State/[place] [address] MRI Thoracic Spine wwo [...] who have questions please contact the health child care specialist that requested your imaging first. ? Electronically signed by: Armando Duvall MD, [facility] ([phone]), at 05/05/2022 2:48 AM Narrative 05/05/2022 2:48 AM EDT EXAMINATION: MRI [...] region. There is displacement of the tra saide and esophagus towards the right. The mass [...] ho have questions please contact the health child care specialist that requested your imaging first. Electronically signed by: Armando Duvall MD, [facility] ([phone]), at 05/05/2022 2:48 AM Mulugeta Freedman MD IMG MRI ORDERABLES MRI [...] who have questions please contact the health child care specialist that requested your imaging first. ? Electronically signed by: Armando Duvall MD, [facility] ([phone]), at 05/05/2022 2:48 AM Narrative 05/05/2022 2:48 AM EDT EXAMINATION: MRI [...] ho have questions please contact the health child care specialist that requested your imaging first. Electronically signed by: Armando Duvall MD, [facility] ([phone]), at 05/05/2022 2:48 AM Mulugeta Freedman MD IMG MRI ORDERABLES CT [...] who have questions please contact the health child care specialist that requested your imaging first. ? Electronically signed by: Jose Juan soto MD, [facility] ([phone]), at 05/04/2022 7:36 PM Narrative 05/04/2022 7:36 [...] ho have questions please contact the health child care specialist that requested your imaging first. Mulugeta Freedman MD IMG CT ORDERABLES Phosphorus (05/04/2022 3:50 PM EDT) P athologist Signature Phosphorus 3.4 2.5 - 4.5 CHRISTEN rothman/dL [facility] LABORATORY Specimen Anatomical Collection Method Collection Time Receive d Time (Source) Location / / Volume Laterality Blood Venous Draw / 05/04/2022 3:50 PM 05/04/20 22 4:02 Unknown EDT PM EDT Resulting Agency Comment Spec In Lab Fuad Garza MD CHEMISTRY ORDERABLES Performing Organization Address City/[facility]/ZIP Code Phon e Number [address] Magnesium (05/04/2022 3:50 PM EDT) P athologist Signature Magnesium 0.89 0.69 - 1.07 [facility] ARUN mmol/L [facility] LABORATORY Specimen Anatomical Collection Method Collection Time Receive d Time (Source) Location / / Volume Laterality Blood Venous Draw / 05/04/2022 3:50 PM 05/04/20 22 4:02 Unknown EDT PM EDT Resulting Agency Comment Spec In Lab Fuad Garza MD CHEMISTRY ORDERABLES Performing Organization Address City/[facility]/ZIP Code Phon e Number [address] (ABNORMAL) Differential, Automated (05/04/2022 3:50 PM EDT) Patholo gist Method Time Signature Neutrophils % 69.4 % [facility] LABORATORY Neutr Abs (ANC) 7.23 (H) 1.70 - [facility] 6.10 [facility] x10(3)/[facility] LABORATORY Lymphocytes % 18.4 % [facility] HOSPITAL LABORATORY Lymphocytes Abs 1.9 0.9 - 3.2 [facility] x10(3)/[facility] LABORATORY Monocytes % 8.3 % [facility] LABOR[facility]ORY Monocyte Abs 0.9 0.3 - 0.9 [facility] x10(3)/[facility] LABORATORY Eosinophils % 3.3 % [facility] LABOR[facility]ORY Eosinophils Abs 0.3 0.0 - 0.4 [facility] x10(3)/[facility] LABORATORY Basophils % 0.2 % [facility] LAB[facility]ORY Basophils Abs 0.0 0.0 - 0.1 [facility] x10(3)/[facility] LABORATORY Immature Gran % 0.40 % [facility] LABOR[facility]ORY Comment: Immature granulocytes(IG's)percentage an d absolute count will include metamyelocytes, myelocytes, and promyelo cytes. Blood smears from CBCs yielding IG's will be scanned manually for concor dance. If this scan disagrees with the automated IG or if promyelocytes are not ed, a manual differential will be performed. Cathy Gran Abs 0.04 0.00 - 0.04 x10(3)/[facility] MAR Y [facility] LABORATORY Specimen Anatomical Collection Method Collection Time Receive d Time (Source) Location / / Volume Laterality Blood 05/04/2022 3:50 PM 2 3:58 EDT PM EDT Resulting Agency Comment Spec In Lab Olaf HUSSEIN HEMATOLOGY ORDERABLES Performing Organization Address City/State/[place] [address] (ABNORMAL) Hemogram (05/04/2022 3:50 PM EDT) Analysis Performed At Patho logist Time Signature WBC 10.4 (H) 4.0 - 9.5 [facility] x10(3)/[facility] LABORATORY RBC 5.01 4.58 - [facility] x10(6)/[facility] LABORATORY Hemoglobin 15.9 13.7 - [facility] 16.5 g/dL [facility] LABORATORY Hematocrit 44.1 40.5 - [facility] 48.5 % [facility] LABORATORY MCV 88.0 82.9 - [facility] 93.1 [facility] LABORATORY MCH 31.7 27.5 - [facility] ARUN 32.1 pg [facility] LABORATORY MCHC 36.1 (H) 32.0 - [facility] 35.7 g/dL [facility] LABORATORY Platelets 351 145 - 357 [facility] x10(3)/[facility] LABORATORY RDWSD 40.7 36.0 - [facility] 45.0 [facility] RDWCV 12.7 11.4 - [facility] 13.8 % [facility] LABORATORY MPV 9.7 7.6 - 12.9 [facility] LABORATORY nRBC % Auto 0.0 % [facility] LABORATORY nRBC Abs Auto 0.000 0.000 - [facility] 0.000 [facility] x10(3)/[facility] LABORATORY Specimen Anatomical Collection Method Collection Time Receive d Time (Source) Location / / Volume Laterality Blood 05/04/2022 3:50 PM 2 3:58 EDT PM EDT Resulting Agency Comment Spec In Lab Olaf HUSSEIN HEMATOLOGY ORDERABLES Performing Organization Address City/State/[place] [address] Troponin (05/04/2022 3:50 PM EDT) P athologist Signature Troponin-T <0.01 0.00 - 0.00 [facility] ng/mL [facility] Comment: The 99th percentile for Troponin T is le ss than 0.01 ng/mL, any detectable cTnT concentration using this assay should be considered elevated. According to the third universal definit ion of myocardial infarction the following criteria with a clinical prese ntation consistent with acute myocardial ischemia meets the diagnosis for a myocardial infarction ([place]). Detection of a rise and/or fall of [...] additional sample may be indicated. Reference: Third [place] Definition of Myocardial Infarction. Journal of the [place] [employer] 2012;60:1581-98 Specimen Anatomical Collection Method Collection Time Receive d Time (Source) Location / / Volume Laterality Blood 05/04/2022 3:50 PM 2 3:58 EDT PM EDT Resulting Agency Comment Spec In Lab Maribell Mike MD CHEMISTRY ORDERABLES Performing Organization Address City/State/[place] [address] (ABNORMAL) Comprehensive metabolic panel (non-fasting) (05/04/2022 3:50 PM EDT) P athologist Signature Glucose Lvl 102 65 - 199 [facility] mg/dL [facility] LABORATORY Comment: Diabetes: >=200 mg/dL plus symp toms BUN 20 10 - 20 mg/dL [facility] LABORATORY Creatinine 0.91 0.80 - 1.50 mg/dL [facility] LABORATORY Sodium 135 135 - 145 mmol/L [facility] LABORATORY Potassium 4.4 3.5 - 5.0 mmol/L [facility] LABORATORY Comment: Please note: ??Patients with WBC >100,00 0 may have falsely elevated Potassium levels. ??For accurate Potassium quantif ication in these patients send serum separator tube (gold top) for subsequent determinations. ??Contact the Clinical Chemistry Laboratory if there are any qu estions. Chloride 101 98 - 107 mmol/L [facility] CO2 23 22 - 31 mmol/L [facility] Anion Gap 11 5 - 15 mmol/L [facility] LABORATORY Calcium 9.3 8.5 - 10.5 mg/dL [facility] LABORATORY Total Protein 8.1 (H) 6.1 - 8.0 g/dL [facility] LABORATORY Albumin 4.3 3.2 - 5.2 g/dL [facility] AST 36 0 - 39 unit/L [facility] LABORATORY ALT 38 0 - 55 unit/L [facility] LABORATORY Alk Phos 86 40 - 130 unit/L [facility] Total Bilirubin 0.3 0.2 - 1.3 mg/dL [facility] LABORATORY Estimated GFR 100 >=60 mL/min/1.73 m?? [facility] Comment: This patient's estimated GFR was calcula castro using the 2021 CKD-EPI equation. The estimated GFR can vary [...] Organization Address City/State/[place] [address] XR Chest PA & [...] who have questions please contact the health child care specialist that requested your imaging first. ? Narrative 05/04/2022 3:59 PM EDT EXAMINATION: XR CHEST PA AND LATERAL (GENERIC) CLINICAL HISTORY: left sided chest pain TECHNIQUE: PA and lateral views of the c hest COMPARISON: Correlation is made to CT of the chest dated March 23, 2022. Comparison is made to multiple prior [facility] radiograph examinations, the most recent which [...] Osseous structures are unchanged. Procedure Note Bishop Cota, DO - 05/04/2022Formatti ng of this note might be different from the original. EXAMINATION: XR CHEST PA AND LATERAL ([employer]) CLINICAL HISTORY: left sided chest pain TECHNIQUE: PA and lateral views of the c hest COMPARISON: Correlation is made to CT of the chest dated March 23, 2022. Comparison is made to multiple prior [facility] radiograph examinations, the most recent which is [...] ho have questions please contact the health child care specialist that requested your imaging first. Electronically signed by: Bishop Cota DO, [facility] ([phone]), at 05/04/2022 3:59 PM Maribell Mike MD IMG DX ORDERABLES EKG [...] 462 ms MUSE SYSTEM (Bezet) Calculated P Downing 78 degrees MUSE SYSTEM Calculated R Downing 34 degrees MUSE SYSTEM Calculated T Downing 60 degrees MUSE SYSTEM INTERPRETATION Sinus rhythm with frequent a nd consecutive Premature ventricular complexes MUSE SYSTEM Biatrial enlargement Left ventricular hypertrophy Abnormal ECG When compared with ECG of 17-FEB-2012 15:09, Premature ventricular complexes are now Present Vent. rate has increased BY ??32 BPM QT has lengthened Confirmed by MD LIAM, [facility] ([id number]) on 05/05/2022 9:01:50 AM Specimen Anatomical Collection Method Collection Time Receive d Time (Source) Location / / Volume Laterality 05/04/2022 3:36 PM 9:01 EDT AM EDT Maribell Mike MD ECG ORDERABLES Performing Organization Address City/State/ZIP Code Phon e Number MUSE SYSTEM documented in this encounter Visit Diagnoses Not on filedocumented in this encounter Admitting Diagnoses Diagnosis Lung mass Swelling, mass, or lump in chest documented in this encounter Administered Medications Inactive Administered Medications - up to 3 most recent administrations Medication Order MAR Action Action Date Dose Rate Site acetaminophen (Tylenol) tablet 975 Given 05/12/2022 8:43 AM EDT 975 mg mg 975 mg, Oral, 3 TIMES DAILY, [...] 05/08/2022 9:54 AM EDT 1 puff aspirin chewable tablet 325 mg Given 05/12/2022 8:43 AM EDT 325 mg 325 mg, Oral, DAILY, First dose on Tue05/11/22 at 0900, Until Discontinued, Routine Given 05/11/2022 8:13 AM EDT 325 mg buprenorphine-naloxone (Suboxone) 2-0.5 mg Given 05/12 8:44 AM EDT 2 tablets disintegrating tablet 2 tablet 2 tablet (4 mg of opiate), Sublingual, 4 TIMES DAILY, First dose (after last modification) on Tue05/09/22 at 1116, Until Discontinued, STAT Given 05/11/2022 8:07 PM EDT 2 tablets Given 05/11/2022 12:27 PM EDT 2 tablets cloNIDine (Catapres) tablet 0.2 mg Given 05/12/2022 [...] Given 05/11/2022 8:12 AM EDT 4 mg divalproex EC (Depakote) tablet 500 mg Given [...] PM EDT 40 mg gabapentin (Neurontin) capsule 400 mg Given 05/12/2022 8:43 AM EDT 400 mg 400 mg, Oral, 3 TIMES DAILY, First dose (after last modification) on Tue05/07/22 at 1530, Until Discontinued, Routine Given 05/11/2022 8:06 PM EDT 400 mg Given 05/11/2022 8:11 AM EDT 400 mg HYDROmorphone (Dilaudid) (1 mg/mL) injection Given 10:53 PM EDT 1 mg syringe 1 mg 1 mg, Subcutaneous, EVERY 2 HOURS PRN, Starting on Tue05/06/22 at 2011, Until Tue05/12/22 at 1253, Pain, secondary if PO is not working, Routine Given 05/09/2022 3:09 PM EDT 1 mg Given 05/09/2022 10:07 AM EDT 1 mg HYDROmorphone (Dilaudid) tablet 4 mg Given 05/12/2022 8:51 AM EDT 4 mg 4 mg, Oral, EVERY 2 HOURS PRN, Starting on Tue05/10/22 at 2100, Until Tue05/12/22 at 1253, Pain, first line, Routine Given 05/11/2022 8:05 PM EDT 4 mg Given 05/11/2022 12:30 PM EDT 4 mg hydrOXYzine (Atarax) tablet 25 mg Given 05/11/2022 10:29 PM EDT 25 mg 25 mg, Oral, 3 TIMES DAILY PRN, Starting on Tue05/09/22 at 1400, Until Tue05/12/22 at 1253, Anxiety, Routine Given 05/10/2022 11:59 AM EDT 25 mg Given 05/10/2022 6:14 AM EDT 25 mg ipratropium-albuteroL (Duoneb) 0.5 mg-3 mg(2.5 Given 0 05/11/2022 1:08 AM EDT 3 mLs mg base)/3 mL nebulizer solution 3 mL 3 mL, Nebulization, 4 TIMES DAILY PRN, Starting on Tue05/07/22 at 1610, Until Tue05/12/22 at 1253, Wheezing, Second line for wheezing, Routine Given 05/08/2022 12:36 PM EDT 3 mLs labetaloL (Normodyne) (5 mg/mL) injectio n solution 20 mg 20 mg, Intravenous, ONCE PRN, 1 dose, St arting on Tue05/10/22 at 2302, Until Tue05/12/22 at 1253, High Blood Pressure, Pl ease give if BP remains sustained above 180 systolic, Routine LORazepam (Ativan) tablet 1 mg Given 05/12/2022 [...] Given 05/09/2022 9:00 PM EDT 7.5 mg multivitamin with minerals (Thera M) tablet Given [...] mg total. If ineffective, call HERT team [phone]. , Routine ondansetron (pf) (Zofran) (2 mg/mL) inje ction [...] Maylin Lepe RN)1420 (Given - Provider: Maylin Lepe, ANA)162 (Given - Provider: Maylin Lepe RN)2024 (Given - Provider: Leighton Moncada RN) 0812 (Given - Provider: Maylin Lepe RN)1227 (Given - Provider: Maylin Lepe RN)1700 (Not Given - Provider: Maylin Lepe RN - Reason: Patient/family refused - Comment: pt removed ID band, refuses new band. 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 ID) 0844 (Given - Provider: Zohreh Lucas, ANA) 2 tablet (4 mg of opiate), Sublingual, 4 TIMES DAILY, First dose (after last modification) on Tue05/09/22 at 1116, Until Discontinued, STAT 2006 (Given - Provider: Abdelrahman Pena RN) cloNIDine (Catapres) tablet 0.2 mg (CANCELED) 0807 (Gi gen - Provider: Maylin Lepe RN) 0.2 mg, Oral, 2 TIMES DAILY, First dose (after last modification) on Tue05/06/22 at 2100, Until Discontinued, Routine cloNIDine (Catapres) tablet 0.2 mg 1420 (Given - Provi matt: Maylin Lepe RN)2023 (Given - Provider: Leighton Moncada RN) 08 (Given - Provider: Maylin Lepe RN)1500 (Not Given - Provider: Maylin Lepe RN - Reason: Patient/family refused)2006 (Given - Provider: Abdelrahman Pena RN) 0844 (Given - Provider: Zohreh Lucas, ANA) 0.2 mg, Oral, 3 TIMES DAILY, First dose (after last modification) on Tue05/10/22 at 1500, Until Discontinued, Routine dexAMETHasone (Decadron) tablet 4 mg 806 (Given - Pro vider: Maylin Lepe RN)2023 (Given - Provider: Leighton Moncada RN) 811 (Given - Provider: Maylin Lepe RN)2006 (Given - Provider: Abdelrahman Pena RN) 0844 [...] Moncada RN) 2005 (Given - Provider: Abdelrahman Pena RN) 40 mg, Subcutaneous, NIGHTLY, First dose on Tue05/05/22 at 2100, Until Discontinued, Routine gabapentin (Neurontin) capsule 400 mg 08 (Given - Pr ovider: Maylin Lepe RN)1419 (Given - Provider: Maylin Lepe RN)2024 (Given - Provider: Leighton Moncada RN) 0811 (Given - Provider: Maylin Lepe RN)1500 (Not Given - Provider: Maylin Lepe RN - Reason: Patient/family refused)2005 (Given - Provider: Abdelrahman Pena RN) 0843 (Given - Provider: Zohreh Lucas, RN) 400 mg, Oral, 3 TIMES DAILY, First [...] - Comment: that stuff doesnt do anything) 0201 (Not Given - Provider: Abdelrahman Pena RN [...] - Reason: Contraindicated)0844 (Given - Provider: Zohreh Lucas RN) 1 mg, Oral, EVERY 6 HOURS, First dose on Tue05/10/22 at 1530, Until Discontinued, Routine metoprolol tartrate (Lopressor) tablet 12.5 mg 0807 (G iven - Provider: Maylin Lepe RN)2023 (Given - Provider: Leighton Moncada RN) 08 (Given - Provider: Maylin Lepe RN)2005 (Given - Provider: Abdelrahman Pena RN) 0844 (Given - Provider: Zohreh Lucas RN) 12.5 mg, Oral, EVERY 12 HOURS SCHEDULED (2 times per day), First dose on Tue05/05/22 at 1330, Until Discontinued, Hold for SBP<90, HR<60, Routine mirtazapine (Remeron) tablet 7.5 mg 2023 (Given - Prov ider: Leighton Moncada RN) 2005 (Given - Provider: Abdelrahman Pena RN) 7.5 mg, Oral, NIGHTLY, First dose on Tue05/09/22 at 2100, Until Discontinued, Routine multivitamin with minerals (Thera M) tablet 1 tablet 0 808 (Given - Provider: Maylin Lepe RN) 0811 (Given - Provider: Maylin Lepe RN) 0844 (Give n - Provider: Zohreh Lucas RN) 1 tablet, Oral, DAILY, First dose on Tue05/05/22 at 1330, Until Discontinued, Routine pantoprazole EC (Protonix) tablet 40 mg 0808 (Given - Provider: Maylin Lepe, RN) 0814 (Given - Provider: Maylin Lepe, ANA) 0844 (Give n - Provider: Zohreh Lucas, RN) 40 mg, Oral, DAILY, First dose on Tue at 1330, Until Discontinued, DO NOT CRUSH OR OPEN senna-docusate (Pericolace) 8.6-50 mg per tablet 2 tab let 0808 (Given - Provider: Maylin Lepe, RN)2024 (Given - Provider: Leighton Moncada, ANA) 0811 (Given - Provider: Maylin Lepe, ANA)2005 (Given - Provider: Abdelrahman Pena RN) 0843 [...] Reason: See comment)2253 (Given - Provider: Leighton Moncada, ANA) 1 mg, Subcutaneous, EVERY 2 HOURS PRN, S tarting on Deborah 05/06/22 at 2011, Until Tue05/12/22 at 1253, Pain, secondary if PO is not working, Routine HYDROmorphone (Dilaudid) tablet 4 mg (CANCELED) 0008 ( Given - Provider: Jennifer Zazueta RN)0116 (Given - Provider: Jennifer Zazueta RN)0301 (Given - Provider: Jennifer Zazueta, ANA)0430 (Given - Provider: Jennifer Zazueta, ANA)0611 (Given - Provider: Jennifer Zazueta RN) 4 mg, Oral, EVERY 1 HOUR PRN, Starting o n 05/09/22 at 2115, Until Tue05/10/22 at 2046, Pain, first line, Routine 0730 (Given - Provider: Maylin Lepe RN)0934 (Given - Provider: Maylin Lepe RN)1159 (Given - Provider: Maylin Lepe RN)1833 (Given - Provider: Maylin Lepe RN) HYDROmorphone (Dilaudid) tablet 4 mg 2107 (Given - Pro vider: Leighton Moncada RN)2309 (Given - Provider: Leighton Moncada RN - Comment: per provider ok to give) 0109 (Given - Provider: Leighton lloyd RN)0510 (Given - Provider: Leighton Moncada, ANA)1230 (Given - Provider: Maylin Lepe, ANA)2004 (Given - Provider: Abdelrahman Pena RN) 0851 (Given - Provider: Zohreh Lucas RN) 4 mg, Oral, EVERY 2 HOURS PRN, Starting on Tue05/10/22 at 2100, Until Tue05/12/22 at 1253, Pain, first line, Routine hydrOXYzine (Atarax) tablet 25 mg 0614 (Given - Provid er: Jennifer Zazueta RN)1159 (Given - Provider: Maylin Lepe RN) 2228 (Given - Provider: Abdelrahman Pena RN) 25 mg, Oral, 3 TIMES DAILY PRN, Starting on Tue05/09/22 at 1400, Until Tue05/12/22 at 1253, Anxiety, Routine ipratropium-albuteroL (Duoneb) 0.5 mg-3 mg(2.5 mg base)/3 mL nebulizer solution 3 mL 107 (Given - Provider: Leighton lloyd RN) 3 mL, Nebulization, 4 TIMES DAILY PRN, [...] mg total. If ineffective, call HERT team [phone]. , Routine nitroGLYcerin (Nitrostat) disintegrating tablet 0.4 [...] Leighton Moncada RN) 1 dose, Starting on 05/10/22 at 2247, Until Tue05/11/22 at 1059, Leighton Moncada: davi override Linked Groups Order Group 1: ondansetron [...] PRN, Starting on 05/09/22 at 0835, Until Tue05/12/22 at 1253, Nausea
Start with 4mg and if ineffective in 30 minutes, give an additional 4mg If multiple antiemetics are ordered, give ondansetron first.
documented in this encounter Care Teams Middle School Tutor Relationship Specialty Start Date End Date Willam Waite MD PCP - General 03/24/22 [address] [place] [address] documented as of this encounter
--- OUTSIDE RECORDS SUMMARY | 2022-07-12 08:57 | XMS_ITS | Encounter Summary ---
:1965 Author Organization [facility] [place] [address] Care Team Providers Name Role Phone Abdelrahman Gonzales APRN Primary Care Provider [phone] Encounter Details Date Type Department Care Team Description 03/23/2022 Ancillary Procedure Radiology Library at Danish Gonzales [facility] [place] [facility] [address] [place] [address] [place], [place] [phone] (Wo rk) [phone] Social History Tobacco Use Types Packs/Day Years Used Date Current Every Day Smoker Cigarettes 1 28 Comments: 6 cigs daily Alcohol Use Standard [...] TH Visit (TeleHealth) Palliative Care Kian Zelaya ENGINEER [employer] [facility] ER PALLIATIVE MEDIC [place], [place] [address] (Wo rk) 07/22/2022 TH Visit (TeleHealth) Palliative Care Benoit Lei ENGINEER [employer] [facility] [place] [address] Criselda Zelaya ENGINEER [employer] [facility] [place] [address] 08/12/2022 Office Visit Cardiology Hari Summers MD [facility] [place] [address] [facility] [place] [address] documented as of this encounter Procedures Procedure Name Priority Date/Time Associated Diagnosis Comme nts FILM LIBRARY Routine 03/23/2022 12:05 AM Results for this STORAGE ONLY DX EDT procedure ar e in CHEST the results section. documented in this encounter Results Film Library- Storage Only DX Chest (03/23/2022 12:05 AM EDT) Specimen (Source) Anatomical Location Collection Method / Collectio n Time Received Time / Laterality Volume Narrative MAXIMILIANO BREEN - 03/30/2022 3:09 PM EDT This exam is auto-finalizing. It's purpo se is for storage only. Abdelrahman Gonzales APRN [facility] FILM LIBRARY ORDERABLES Performing Organization Address City/State/ZIP Code Phon e Number [place], [place] documented in this encounter Visit Diagnoses Not on filedocumented in this encounter Care Teams Hospital Educator Relationship Specialty Start Date End Date Abdelrahman Gonzales APRN PCP - General 05/04/11 03/23/22 [address] [place] [address] documented as of this encounter
--- OUTSIDE RECORDS SUMMARY | 2022-07-12 08:57 | XMS_ITS | Encounter Summary ---
:1965 Author Organization [facility] [place] [address] Care Team Providers Name Role Phone Willam Waite MD Primary Care Provider Encounter Details Date Type Department Care Team Description 04/02/2022 Telephone Thoracic Surgery at [facility] [place] [address] Social History Tobacco Use Types Packs/Day [...] for the very basics like Not v shmaeka hard 04/21/2022 food, housing, medical care, and [...] Notes Telephone Encounter - Rickie Sharif - 04/02/2022 4:31 PM EDT Spoke to Cathy and updated phone number. Attempted call to patient, message left. ----- Message from Lotus Steven RN sent at 04/02/2022 4:26 PM EDT ----- ----- Message ----- From: Rebekah Moore Sent: 04/02/2022 4:20 PM EDT To: [facility] Call[facility] Caller name: Cathy- pcp office Call back number: [phone] Reason for call: Cathy states she has been speaking to Priscila daily and is calling to see if patient has been schedule or is ready to schedule. Please return call to [phone] documented in this encounter Plan of Treatment Upcoming Encounters Date Type Specialty Care Team Description 07/14/2022 Visit (TeleHealth) Palliative Care Kian Zelaya, S[facility] ER PALLIATIVE MEDIC [place], [place] [address] (Wo rk) 07/22/2022 Visit (TeleHealth) Palliative Care Benoit Lei APRN [facility] [place] [address] Criselda Zelaya HYDRATION PLANT OPERATOR [facility] [place] [address] 08/12/2022 Office Visit Cardiology Hari Summers MD [facility] [place] [address] Kit Bonilla MD [facility] [place] [address] documented as of this encounter Visit Diagnoses Not on filedocumented in this encounter Care Teams Center Machine Operator Relationship Specialty Start Date End Date Willam Waite MD PCP - General 03/24/22 [address] [place] [address] documented as of this encounter
--- OUTSIDE RECORDS SUMMARY | 2022-07-12 08:57 | XMS_ITS | Encounter Summary ---
:1965 Author Organization [facility] [place] [address] Care Team Providers Name Role Phone Willam Waite MD Primary Care Provider Encounter Details Date Type Department Care Team Description 04/29/2022 Telephone Pulmonology at [facility] [place] [place] [phone] Social History Tobacco Use Types Packs/Day [...] this encounter Miscellaneous Notes Telephone Encounter - Sulma Hernandez - 04/29/2022 10:35 AM EDT sched pft 8/2 pt aware dtl documented in this encounter Plan of Treatment Upcoming Encounters Date Type Specialty Care Team Description 07/14/2022 TH Visit (TeleHealth) Palliative Care Kian Zelaya SENIOR APPLICATIONS ENGINEER [facility] ER PALLIATIVE MEDIC [place], [place] [address] (Wo rk) 07/22/2022 TH Visit (TeleHealth) Palliative Care Benoit Lei SENIOR APPLICATIONS ENGINEER [facility] [place] [address] Criselda Zelaya SENIOR APPLICATIONS ENGINEER [facility] [place] [address] 08/12/2022 Office Visit Cardiology Hari Summers MD [facility] [place] [address] Kit Bonilla MD [facility] [place] [address] documented as of this encounter Visit Diagnoses Not on filedocumented in this encounter Care Teams Film Waxer Relationship Specialty Start Date End Date Willam Waite MD PCP - General 03/24/22 [address] [place] [phone] documented as of this encounter
--- OUTSIDE RECORDS SUMMARY | 2022-07-12 08:57 | XMS_ITS | Encounter Summary ---
:1965 Author Organization [facility] [place] [address] Care Team Providers Name Role Phone Willam Waite MD Primary Care Provider Reason for Visit Reason Onset Date Comments Other 04/30/2022 possible post-biopsy chest pain Encounter Details Date Type Department Care Team Description 04/30/2022 Telephone Pulmonology at [facility] Mara Richardson, Other (possible [facility] Chrissy arellano RN post-biopsy chest pain) [place] [address] Social History Tobacco Use Types Packs/Day [...] Telephone Encounter - Mara Richardson RN - 04/30/2022 4:08 PM EDT I have attempted to call pt at the request of Dr. Jeronimo after receiving a message from RN at [facility] regarding post-biopsy pain. Pt had a Bronch with biopsy yesterday 04/29/22. As per Dr. Jeronimo, Vj ivan - Could you give Iban a ring? Apparently having post-biopsy pain. Options include scheduled tylenol + ibuprofen for the next 72 hours If things are worsening he can go to the ED for a CXR Pt not picking up, after 2 attempts of calling him, I called his 's phone, spoke with Jaja pt's who confirms pt's chest pain. Jaja further describes constant pain on the L side of his chest, radiating to shoulder and back of his L arm. 7-06/02 in severity. Pt already taking Ibuprofen and Tylenol (extra strength) 650 mg Q4 hrs with no relief. Jaja states they are waiting to hear from the pain mgt team in [facility] but I have told her that from what she describes with the pt's chest pain, I strongly recommend they go to their local ER charles for further evaluation and to rule out any cardiac events related to pt's chest pain. Pt's verbalized understanding and confirms she will bring pt to the ER now. AVERY Carrillo, RN Department of Pulmonary 5C, [facility] Pager: [phone] documented in this encounter Plan of Treatment Upcoming Encounters Date Type Specialty Care Team Description 07/14/2022 TH Visit (TeleHealth) Palliative Care Kian Zelaya APRN [facility] ER PALLIATIVE MEDIC [place], [place] [address] (Wo rk) 07/22/2022 TH Visit (TeleHealth) Palliative Care Benoit Lei [facility] [place] [address] Criselda Zelaya SCRUM PRODUCT OWNER [facility] [place] [address] 08/12/2022 Office Visit Cardiology Hari Summers MD [facility] [place] [address] Kit Bonilla MD [facility] [address] documented as of this encounter Visit Diagnoses Not on filedocumented in this encounter Care Teams Utility Inspector Relationship Specialty Start Date End Date Willam Waite MD PCP - General 03/24/22 6 [place] [address] documented as of this encounter
--- OUTSIDE RECORDS SUMMARY | 2022-07-12 08:57 | XMS_ITS | Encounter Summary ---
:1965 Author Organization [facility] [place] [address] Care Team Providers Name Role Phone Willam Waite MD Primary Care Provider Encounter Details Date Type Department Care Team Description 04/21/2022 Orders Only Radiation Oncology at Richy Donald, Mass of upper lobe of [facility] left lung [facility]ly [facility], [facility] [place] [address] RADIATION ONCOLOGY [phone] [place], [place] [address] Social History Tobacco Use Types Packs/Day Years [...] Visit (TeleHealth) Palliative Care Kian Zelaya APRN [facility] ER PALLIATIVE MEDIC [place], [place] [address] (Wo rk) 07/22/2022 TH Visit (TeleHealth) Palliative Care Benoit Lei EDITING COMPUTER PUBLISHER [facility] [place] [address] Criselda Zelaya APRN [facility] [place] [address] 08/12/2022 Office Visit Cardiology Hari Summers MD [facility] [place] [address] Kit Bonilla MD [facility] [place] [address] Scheduled Orders Name Type Priority Associated Diagnoses Order S chedule Pulmonary Function PFT Routine Mass of upper lobe of Expected: 04/28/2022, Testing left lung Expires: 2022 documented as of this encounter Visit Diagnoses Diagnosis Mass of upper lobe of left lung documented in this encounter Care Teams Excellence Consultant Relationship Specialty Start Date End Date Willam Waite MD PCP - General 03/24/22 6 [place] [address] documented as of this encounter
--- OUTSIDE RECORDS SUMMARY | 2022-07-12 08:57 | XMS_ITS | Encounter Summary ---
:1965 Author Organization [facility] [place] [address] Care Team Providers Name Role Phone Willam Waite MD Primary Care Provider Reason for Referral Consultation (Routine) - Closed Specialty Diagnoses / Procedures Referred By Contact Refer red To Contact Pulmonology Diagnoses Mass of upper lobe of left lung Dar Downing MD [facility] Pulmonology [address] [place] [address] [place] [address] [place] [address] Referral ID Status Reason Start Date Expiration Date Visits V isits Requested Authorized [id number] Closed Consult, 04/06/2022 04/06/2023 1 1 Test & Treat Consultation (Routine) - Closed Specialty Diagnoses / Procedures Referred By Contact Refer red To Contact Neurosurgery Diagnoses Mass of upper lobe of left lung Dar Downing MD [facility] Neurosurgery [address] [place] [address] [place] [address] [place] [address] Referral ID Status Reason Start Date Expiration Date Visits V isits Requested Authorized [id number] Closed Consult, 04/06/2022 04/06/2023 1 1 Test & Treat iagnostic Test (Routine) - New Request Specialty Diagnoses / Procedures Referred By Contact Refer red To Contact Radiology Diagnoses Mass of upper lobe of left lung Dar Downing MD [facility] Rad Mri Procedures MRI Brachial Plexus wwo Contrast Right [facility] [place] [address] [place] [address] Referral ID Status Reason Start Expiration Visits Visits Date Date Requested Authorized [id number] New Request Specialty 04/06/2022 10/06/2023 1 1 Service Requested iagnostic Test (Routine) - New Request Specialty Diagnoses / Procedures Referred By Contact Refer red To Contact Radiology Diagnoses Mass of upper lobe of left lung Dar Downing MD [facility] Rad Mri Procedures MRI Brachial Plexus wwo Contrast Left [facility] [place] [address] [place] [address] Referral ID Status Reason Start Expiration Visits Visits Date Date Requested Authorized [id number] New Request Specialty 04/06/2022 10/06/2023 1 1 Service Requested iagnostic Test (Routine) - Closed Specialty Diagnoses / Procedures Referred By Contact Refer red To Contact Radiology Diagnoses Mass of upper lobe of left lung Dar Downing MD [facility] Rad Nuclear Med Procedures NM Etienne PET CT Skull Base to Mid-thigh [facility] [place] [address] [place] [address] Referral ID Status Reason Start Date Expiration Date Visits V isits Requested Authorized [id number] Closed Specialty 04/30/2022 06/14/2022 1 1 Service Requested iagnostic Test (Routine) - New Request Specialty Diagnoses / Procedures Referred By Contact Refer red To Contact Radiology Diagnoses Mass of upper lobe of left lung Dar Downing MD [facility] Rad Ct Scan Procedures CT Chest w Contrast [facility] [place] [address] [place] [address] Referral ID Status Reason Start Expiration Visits Visits Date Date Requested Authorized [id number] New Request Specialty 04/06/2022 10/06/2023 1 1 Service Requested iagnostic Test (Routine) - New Request Specialty Diagnoses / Procedures Referred By Contact Refer red To Contact Radiology Diagnoses Mass of upper lobe of left lung Dar Downing MD [facility] Rad Mri Procedures MRI Brain wwo Contrast (Generic) [facility] [place] [address] [place] [address] Referral ID Status Reason Start Expiration Visits Visits Date Date Requested Authorized [id number] New Request Specialty 04/06/2022 10/06/2023 1 1 Service Requested Consultation (Routine) - Closed Specialty Diagnoses / Procedures Referred By Contact Refer red To Contact Radiation Oncology Diagnoses Mass of upper lobe of left lung Dar Downing MD [facility] Rad Onc Treatment [address] [place] [phone] Fax: Referral ID Status Reason Start Date Expiration Date Visits V isits Requested Authorized [id number] Closed Consult, 04/06/2022 04/06/2023 1 1 Test & Treat Consultation (Routine) - Closed Specialty Diagnoses / Procedures Referred By Contact Refer red To Contact Hematology and Oncology Diagnoses Mass of upper lobe of left lung Dar Downing MD [facility] Hem Onc [address] [facility] [address] [place] [phone] Fax: Referral ID Status Reason Start Date Expiration Date Visits V isits Requested Authorized [id number] Closed Consult, 04/06/2022 04/06/2023 1 1 Test & Treat Reason for Visit Reason Comments Establish Care Mass Consultation (Routine) - Closed Specialty Diagnoses / Procedures Referred By Contact Refer red To Contact Thoracic Surgery Diagnoses Lung mass lung mass Cherelle Hurt PA [facility] Thoracic Surg [id number] [place] [address] Phone: Fax: Referral ID Status Reason Start Date Expiration Date Visits Requ ested Visits Authorized [id number] Closed 03/31/2022 03/31/2023 1 1 Encounter Details Date Type Department Care Team Description 04/06/2022 Office Visit Thoracic Surgery at Dar Downing, Mass of upper lobe of [facility] [place] (Primary Dx) [facility] [place] [address] [place] [address] [phone] Social History Tobacco Use Types Packs/Day Years [...] Sign Reading Time Taken Comments Blood Pressure 156/101 04/06/2022 10:31 AM EDT Pulse 80 04/06/2022 10:31 AM EDT Temperature 36.6 ??C (97.9 ??F) 04/06/2022 10:31 AM EDT Respiratory Rate 17 04/06/2022 10:31 AM EDT Oxygen Saturation 98% 04/06/2022 10:31 AM EDT Inhaled Oxygen Concentration - - Weight 77.1 kg (170 lb) 04/06/2022 10:30 AM EDT Height 182.9 cm (6' 0.01) 04/06/2022 10:31 AM EDT Body Mass Index 23.05 04/06/2022 10:30 AM EDT documented in this encounter H&P Notes Dar Downing MD - 04/06/2022 10:00 AM EDT Images from the original note were not included. Thoracic Surgery Attending Outpatient Consultation Note MD Walter Wilson PA-C [place] [address] FAX: Date of Consultation: 04/06/2022 This consultation has been requested by PCP: Abdelrahman Gonzales APRN Referring Physician: Cherelle Hurt PA-C Purpose for Consultation: 5.5cm ALBERTO lung mass HPI: Iban Palomares is a 56 y.o. male current smoker (1 PPD x 40 years, currently smoking 6 cigarettes) with a PMHx significant for HTN, COPD, asthma, bipolar 1 disorder (not taking medications for), methamphetamine and marijuana use (denies IV drug use recently), hepatitis C (treated) with a newly discovered 5.5 cm ALBERTO lung mass discovered incidentally on imaging during a ER work-up for worsening left sided chest pain. He states that this chest pain has been on going for 1 yr, waxing and waning. Thepain worsened several weeks ago which prompted his visit to the ER. 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 He smokes marijuana daily and is a current methamphetamine smoker (been using for3 years now, used to smoke a lot, but cutting back). The patient denies dyspnea, dyspnea on exertion, cough, hemoptysis, wheeze, fever, chills, nausea, vomiting, dysphagia, weight loss. Past Medical History: Patient Active Problem List Diagnosis Date Noted ??? Mass of upper lobe of left lung 04/06/2022 ??? Hepatitis C, chronic 12/31/2011 ??? Lumbar disc herniation 05/04/2011 Past Medical History: Diagnosis Date ??? Asthma ??? Bipolar 1 disorder ??? COPD (chronic obstructive pulmonary disease) ??? Herniated disc ??? HTN (hypertension) Past Surgical History: Past Surgical History: Procedure Laterality Date ??? HAND SURGERY ??? HERNIA REPAIR ??? PRO LAMINOTOMY, LUMBAR DISK, 1 INTRSP 06/17/2011 LAMINOTOMY, DECOMPRESSION, FORAMINOTOMY, LUMBAR performed by ANDI NELSON at [facility] MAIN OR ??? PRO NEEDLE BIOPSY LIVER 12/22/2011 LIVER BIOPSY performed by RITA ORLANDO at [facility] ENDOSCOPY ??? PRO REDO EXCIS LUMBAR DISC 02/01/2013 LAMINOTOMY W\DECOMPRESSION, ONE LVL, LUMBAR ,RE-EXPL (INCLDNG PART. FACETECTOMY, FORAMINOTOMY &\OR DISCECTOMY) performed by Andi Nelson MD at [facility] MAIN OR Medications: Outpatient Medications Marked as Taking for the 04/06/22 encounter (Office Visit) with Dar Downing MD Medication Sig Dispense Refill ??? omeprazole (PriLOSEC) 10 mg Capsule, Delayed Release(E.C.) Take 10 mg by mouth daily. ??? divalproex EC (Depakote) 500 mg Tablet, Delayed Release (E.C.) Take 500 mg by mouth 3 times daily. ??? cloNIDine (Catapres) 0.2 mg Tablet Take 0.2 mg by mouth 2 times daily. ??? OXYcodone (ROXICODONE) 5 mg immediate release tablet Take 1 tablet by mouth every 4 hours as needed for Pain. 30 tablet 0 ??? OXYcodone (OXY-IR) 30 mg immediate release tablet Take 30 mg by mouth 2 times daily. ??? MULTIVITAMIN ORAL Take by mouth. ??? acetaminophen (TYLENOL) 325 mg tablet Take 2 tablets by mouth every 4 hours as needed for Pain. 30 tablet ??? albuterol (PROVENTIL HFA;VENTOLIN HFA) 90 mcg/Actuation inhaler Inhale 2 puffs into the lungs every 4 hours as needed. Use with spacer Allergies: Allergies Allergen Reactions ??? Fentanyl Nausea Only ??? Fluoxetine Other reaction(s): Other Family History: Family History Problem Relation Age of Onset ??? Cancer Mother lung cancer ??? Cancer Father prostate cancer Social History: Social History Socioeconomic History ??? Marital status: [...] sober date ??? Drug use: Yes Types: Other pain meds , Narcotics, Benzodiazapines , Marijuana, Methamphetamines Comment: Current marijuana user, current methampetamine user. Denies current IV drug use ??? Sexual activity: Not on file Other [...] Social Determinants of Health Financial Resource Strain: Not on file Food Insecurity: Not on file Transportation Needs: Not on file Physical Activity: Not on file Housing Stability: Not on file REVIEW OF SYSTEMS: General: Denies fatigue, weight loss, chills, night sweats. Neuro: Denies seizure, TIA, CVA, SHELLEY, visual changes, diplopia. Reports weakness/numbness in MIRNA extremity Psychiatric: Report bipolar diagnosis Cardiovascular: Denies arrythmias, CAD, family history of cardiac disease, CHF, hyperlipidemia. Endorses HTN. Respiratory: Denies asthma, COPD, emphysema, cough, dyspnea, wheezing, stridor, hemoptysis, respiratory infection, TB or exposure to TB. GI: denies change in bowel habits : denies change in voiding habits Hematologic: Denies history of DVT, PE Endocrine: denies diabetes mellitus, denies thyroid disease. Musculoskeletal: Denies fractures, arthritis Integument: Denies skin cancer. Physical Exam: BP (!) 156/101 (Patient Position: Sitting) Pulse 80 Temp 36.6 ??C (97.9 ??F) (Temporal) Resp 17 Ht 182.9 cm (6' 0.01) Wt 77.1 kg (170 lb) SpO2 98% BMI 23.05 kg/m?? General Appearance: Alert, cooperative, no distress, appears older than stated age HEENT: PERRL, MMM, non-icteric Neck: Supple, symmetrical, trachea midline, no palpable cervical adenopathy; thyroid: not enlarged, symmetric Lungs: Clear to auscultation w/ shallow breathes, respirations unlabored, wheezes, crackles or ronchi. Heart: Regular rate and rhythm, S1 and S2 normal, no murmur, rub, or gallop Abdomen: Soft, non-tender, bowel sounds normo-active in all four quadrants, no masses, no organomegaly Extremities: Extremities normal, no cyanosis, clubbing. no edema Neurologic: A+Ox3, cranial nerves II-XII grossly intact, Musculoskeletal: 5/5 throughout with normal gait Diagnostics: I have independently visualized all relevant imaging studies, including: CXR (03/23/22): CT Chest (03/23/22): Assessment: This is a 56 y.o. 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 Plan of Management: 1. CT Chest with contrast - for surgical planning and to determine involvement of adjacent vessels. 2. PET - To evaluate mediastinal lymph node involvement and guide tissue biopsy.... CT needle biopsyvs EBUS and Navigational bronchoscopy. 3. PFTs - For surgical planning given significant tobacco, marijuana, meth smoking. 4. MRI Brain - To evaluate brain metastasis. 5. MRI brachial plexus - To evaluate invasion of his brachial plexus given c/o decrease tyre fitter strength and numbness in his MIRNA extremity. 6. Medical Oncology and Radiation Oncology referral 7. Neurosurgery referral for possible brachial plexus involvement and numbness/decreased strength inLU extremity 8. Interventional Pulmonology referral for possible EBUS and Navigational Bronchoscopy 9. Referral to addiction clinic. Patient a current marijuana and methamphetamine user. Will need to be sober prior to surgery. Patient understand and agreeable. Currently cutting back on meth and marijuana use. 7. TTS - Patient has a 40 pack yr hx. Currently smoking 6 cigarettes a day. Would need to stop priorto surgery. Patient agreeable and understands. Not using patches or lozenges. 8. 30 minutes of aerobic exercise daily, at minimum. Discussed importance of this prior to and during treatment. 9. Call with any questions JOVITA Melendez 04/06/22 I have seen the patient and reviewed the PA/resident's above history and I agree with the details aswritten. The assessment and plan were formulated in discussion with me and I agree with them as documented. Plan of Management: 1. CT Chest with contrast - for surgical planning and to determine involvement of adjacent vessels. The CT PE protocol doesn't give us a good view of the mediastinum and vessels. 2. PET - To eval EOD including mediastinal lymph node involvement and guide tissue biopsy -- either a CT needle biopsy vs EBUS and Navigational bronchoscopy. 3. PFTs - For surgical planning given significant tobacco, marijuana, meth smoking. 4. MRI Brain - To evaluate brain metastasis. 5. MRI brachial plexus - To evaluate involvement of his brachial plexus given c/o decrease tyre fitter strength and numbness in his MIRNA extremity. 6. Medical Oncology and Radiation Oncology referral for either definitive treatment or induction therapy, based on his workup 7. Neurosurgery (Mauricio Shirley) referral -- will most likely require neurosurg for the resection. 8. Interventional Pulmonology referral for possible EBUS and Navigational Bronchoscopy 9. Referral to addiction clinic. Patient a current marijuana and methamphetamine user. Will need to be sober prior to surgery. Patient understand and agreeable. Currently cutting back on meth and marijuana use. 7. TTS - Patient has a 40 pack yr hx. Currently smoking 6 cigarettes a day. Would need to stop priorto surgery. Patient agreeable and understands. Not using patches or lozenges. 8. 30 minutes of aerobic exercise daily, at minimum. Discussed importance of this prior to and during treatment. 9. RTC after above studies completed to discuss results and outline treatment plan 10. Call with any questions DAR DOWNING MD documented in this encounter Plan of Treatment Upcoming Encounters Date Type Specialty Care Team Description 07/14/2022 TH Visit (TeleHealth) Palliative Care Kian Zelaya APRN [facility] PALLIATIVE MEDIC [place], [place] [address] (Wo rk) 07/22/2022 TH Visit (TeleHealth) Palliative Care Benoit Lei CNC MECHANIC [facility] [place] [address] Criselda Zelaya APRN [facility] [place] [address] 08/12/2022 Office Visit Cardiology Hari Summers MD [facility] [place] [address] Kit Bonilla MD [facility] [place] [address] Scheduled Orders Name Type Priority Associated Diagnoses Order S chedule MRI Brain wwo Contrast Imaging Routine Mass of upper lobe of Expected: (Generic) left lung 04/06/2022, Exp ires: 10/06/2022 Pulmonary Function Testing PFT Routine Mass of upper lobe of Expected: left lung 04/06/2022, Exp ires: 10/06/2022 CT Chest w Contrast Imaging Routine Mass of upper lobe of Expected: 04/06/2022 left lung (Approximate), Expires: 2021 CBC (with Diff) Lab Routine Mass of upper lobe of Exp ected: left lung 04/06/2022, Exp ires: 07/05/2022 Comprehensive metabolic Lab STAT Mass of upper lob e of Expected: panel (non-fasting) left lung 04/06/20 22, Expires: 10/06/[address] Skull Imaging Routine Mass of upper l obe of Expected: Base to Mid-thigh left lung 04/06/2022 , Expires: 10/06/2023 MRI Brachial Plexus wwo Imaging Routine Mass of upper lob e of Expected: Contrast Left left lung 04/06/2022, Ex robert: 10/06/2022 MRI Brachial Plexus wwo Imaging Routine Mass of upper lob e of Expected: Contrast Right left lung 04/06/2022, E xpires: 10/06/2022 Scheduled Referrals Name Type Priority Associated Order Schedule Diagnoses Referral to Outpatient Referral Routine Mass of upper lobe Or dered: Hematology and of left lung 04/06/2022 Oncology Referral to Radiation Outpatient Referral Routine Mass of uppe r lobe Ordered: Oncology of left lung 04/06/2022 Referral to Outpatient Referral Routine Mass of upper lobe Or dered: Neurosurgery of left lung 04/06/2022 Referral to Outpatient Referral Routine Mass of upper lobe Or dered: Pulmonology of left lung 04/06/2022 documented as of this encounter Visit Diagnoses Diagnosis Mass of upper lobe of left lung - Primar y documented in this encounter Care Teams Meat Hostess Relationship Specialty Start Date End Date Willam Waite MD PCP - General 03/24/22 6 [place] [address] documented as of this encounter
--- OUTSIDE RECORDS SUMMARY | 2022-07-12 08:57 | XMS_ITS | Encounter Summary ---
:1965 Author Organization [facility] [place] [address] Care Team Providers Name Role Phone Willam Waite MD Primary Care Provider Encounter Details Date Type Department Care Team Description 04/21/2022 Orders Only Hematology and Stella Summers, Mass of upper lobe of Oncology at [facility]ITTER left lung [facility] [place] [address] HEMATOLOGY-ONCOLOG [phone] Y DEPT. [place], [place] [address] Social History Tobacco Use Types [...] TH Visit (TeleHealth) Palliative Care Kian Zelaya WARP KNITTER [facility] ER PALLIATIVE MEDIC [place], [place] [address] (Wo rk) 07/22/2022 TH Visit (TeleHealth) Palliative Care Benoit Lei WARP KNITTER [facility] PALLIAT[place] [address] Criselda Zelaya WARP KNITTER [facility] PALLIAT[place] [address] 08/12/2022 Office Visit Cardiology Hari Summers MD [facility] [place] [address] Kit Bonilla MD [facility] [place] [address] Scheduled Orders Name Type Priority Associated Diagnoses Order S chedule Lactate Dehydrogenase Lab STAT Mass of upper lobe of Expected: 05/05/2022 left lung (Approximate), Expires: 2022 CBC (with Diff) Lab STAT Mass of upper lobe of Exp ected: 05/05/2022 left lung (Approximate), Expires: 2022 Comprehensive metabolic Lab STAT Mass of upper lob e of Expected: 05/05/2022 panel (non-fasting) left lung (Approxi mate), Expires: 2022 documented as of this encounter Visit Diagnoses Diagnosis Mass of upper lobe of left lung documented in this encounter Care Teams Clinical Registered Nurse Relationship Specialty Start Date End Date Willam Waite MD PCP - General 03/24/22 6 [place] [address] documented as of this encounter
--- OUTSIDE RECORDS SUMMARY | 2022-07-12 08:57 | XMS_ITS | Encounter Summary ---
:1965 Author Organization [facility] [place] [address] Care Team Providers Name Role Phone Willam Waite MD Primary Care Provider Encounter Details Date Type Department Care Team Description 03/30/2022 Telephone Thoracic Surgery at [facility] Isabela Booker, [place] [address] Social History Tobacco Use Types Packs/Day [...] this encounter Miscellaneous Notes Telephone Encounter - Isabela Booker LNA - 03/30/2022 10:32 AM EDT [facility]ed [facility] to be pushed documented in this encounter Plan of Treatment Upcoming Encounters Date Type Specialty Care Team Description 07/14/2022 TH Visit (TeleHealth) Palliative Care Kian Zelaya APRN [facility] ER PALLIATIVE MEDIC [place], [place] [address] (Wo rk) 07/22/2022 TH Visit (TeleHealth) Palliative Care Benoit Lei APRN [facility] [place] [address] Criselda Zelaya APRN [facility] [place] [address] 08/12/2022 Office Visit Cardiology Hari Summers MD [facility] [place] [address] Kit Bonilla MD [facility] DR [place] [address] documented as of this encounter Visit Diagnoses Not on filedocumented in this encounter Care Teams Evp Business Development Relationship Specialty Start Date End Date Willam Waite MD PCP - General 03/24/22 6 [place] [address] documented as of this encounter
--- OUTSIDE RECORDS SUMMARY | 2022-07-12 08:57 | XMS_ITS | Encounter Summary ---
:1965 Author Organization [facility] [place] [address] Care Team Providers Name Role Phone Willam Waite MD Primary Care Provider Encounter Details Date Type Department Care Team Description 04/20/2022 Telephone Pulmonology at [facility] [place] [address] Social History Tobacco Use Types Packs/Day [...] Visit (TeleHealth) Palliative Care Kian Zelaya APRN [facility] ER PALLIATIVE MEDIC [place], [place] [address] (Wo rk) 07/22/2022 TH Visit (TeleHealth) Palliative Care Benoit Lei [employer]OUND SCHOOL INSTRUCTOR [facility] [place] [address] Criselda Zelaya GROUND SCHOOL INSTRUCTOR [facility] [place] [address] 08/12/2022 Office Visit Cardiology Hari Summers MD [facility] [place] [address] Kit Bonilla MD [facility] [place] [address] documented as of this encounter Visit Diagnoses Not on filedocumented in this encounter Care Teams Mathematical Physicist Relationship Specialty Start Date End Date Willam Waite MD PCP - General 03/24/22 6 [place] [address] documented as of this encounter
--- OUTSIDE RECORDS SUMMARY | 2022-07-12 08:57 | XMS_ITS | Encounter Summary ---
:1965 Author Organization [place] [address] Care Team Providers Name Role Phone Willam Waite MD Primary Care Provider Encounter Details Date Type Department Care Team Description 04/27/2022 Telephone Pulmonology at [facility] Mara Richardson, [place] [address] Social History Tobacco Use Types Packs/Day [...] Telephone Encounter - Mara Richardson RN - 04/27/2022 2:10 PM EDT I have called pt, left vmm with instructions to hold Ibuprofen and Naproxen 2 days before his Bronchoscopy. Will call pt back on 04/28/2022 for a more detailed instructions on his Bronchoscopy. Left my direct line in pt's vm in case he has questions. Pt currently not on oxygen according to chart notes. AVERY Carrillo, RN Department of Pulmonary 5C, [facility] Pager: [phone] documented in this encounter Plan of Treatment Upcoming Encounters Date Type Specialty Care Team Description 07/14/2022 TH Visit (TeleHealth) Palliative Care Kian Zelaya APRN [facility] PALLIATIVE MEDIC [place], [place] [address] (Wo rk) 07/22/2022 TH Visit (TeleHealth) Palliative Care Benoit Lei APRN [facility] [place] [address] Criselda Zelaya APRN [facility] [place] [address] 08/12/2022 Office Visit Cardiology Hari Summers MD [facility] [place] [address] Kit Bonilla MD [facility] [place] [address] documented as of this encounter Visit Diagnoses Not on filedocumented in this encounter Care Teams B2B Sales Professional Relationship Specialty Start Date End Date Willam Waite MD PCP - General 03/24/22 6 [place] [address] documented as of this encounter
--- OUTSIDE RECORDS SUMMARY | 2022-07-12 08:57 | XMS_ITS | Encounter Summary ---
:1965 Author Organization [facility] [place] [address] Care Team Providers Name Role Phone Willam Waite MD Primary Care Provider Reason for Referral Diagnostic Test (Routine) - Authorized Specialty Diagnoses / Procedures Referred By Contact Refer red To Contact Radiology Diagnoses Lung mass Antonio Jeronimo MD [facility] Rad Ct Scan Procedures CT Chest wo Contrast (Generic) [facility] Tyesha [place] [address] [place] [address] Referral ID Status Reason Start Expiration Visits Visits Date Date Requested Authorized [id number] Authorized Specialty 04/06/2022 10/06/2023 1 1 Service Requested Encounter Details Date Type Department Care Team Description 04/06/2022 Orders Only [place] [facility] Antonio Jeronimo MD Lung mass [facility] [place] [address] PULMONARY MEDICINE [phone] [place], [place] [address] (Wo rk) Social History Tobacco Use Types [...] Kian Zelaya APRN [facility] PALLIATIVE MEDIC [place], [place] [address] (Wo rk) 07/22/2022 Visit (TeleHealth) Palliative Care Benoit Lei APRN [facility] [place] [address] Criselda Zelaya APRN [facility] [place] [address] 08/12/2022 Office Visit Cardiology Hari Summers MD [facility] [place] [address] Kit Bonilla MD [facility] [place] [address] Scheduled Orders Name Type Priority Associated Diagnoses Order S chedule CT Chest wo Contrast Imaging Routine Lung mass Expecte d: 04/06/2022 (Generic) (Approximate), Expires: 04/06/2023 documented as of this encounter Visit Diagnoses Diagnosis Lung mass Swelling, mass, or lump in chest documented in this encounter Care Teams Peanut Vendor Relationship Specialty Start Date End Date Willam Waite MD PCP - General 03/24/22 6 [place] [address] documented as of this encounter
--- OUTSIDE RECORDS SUMMARY | 2022-07-12 08:58 | XMS_ITS | Encounter Summary ---
:1965 Author Organization [facility] [place] [address] Care Team Providers Name Role Phone Abdelrahman Gonzales APRN Primary Care Provider [phone] Encounter Details Date Type Department Care Team Description 04/19/2012 Telephone Gastroenterology at [facility] Alia Douglas, [place] [address] Social History Tobacco Use Types Packs/Day Years Used Date Current Every Day Smoker Cigarettes 0.5 28 Comments: 6 cigs daily Alcohol Use [...] this encounter Miscellaneous Notes Telephone Encounter - Alia Douglas, RN - 04/19/2012 2:17 PM EDT Call from patient stating that he will be starting Hep C treatment tonight. He has a follow up appointment scheduled. He will be getting his weekly blood draws at [facility] documented in this encounter Plan of Treatment Upcoming Encounters Date Type Specialty Care Team Description 07/14/2022 TH Visit (TeleHealth) Palliative Care Kian Zelaya WAD LUBRICATOR [facility] ER PALLIATIVE MEDIC [place], [place] [address] (Wo rk) 07/22/2022 TH Visit (TeleHealth) Palliative Care Benoit Lei WAD LUBRICATOR [facility] [place] [address] Criselda Zelaya WAD LUBRICATOR [facility] [place] [address] 08/12/2022 Office Visit Cardiology Hari Summers MD [facility] [place] [address] Kit Bonilla MD [facility] [address] documented as of this encounter Visit Diagnoses Not on filedocumented in this encounter Care Teams Cone Machine Operator Relationship Specialty Start Date End Date Abdelrahman Gonzales APRN PCP - General 05/04/11 03/23/22 [address] [place] [address] documented as of this encounter
--- OUTSIDE RECORDS SUMMARY | 2022-07-12 08:58 | XMS_ITS | Encounter Summary ---
:1965 Author Organization [facility] [place] [address] Care Team Providers Name Role Phone Abdelrahman Gonzales APRN Primary Care Provider [phone] Reason for Referral Psychiatric (Routine) - Closed Specialty Diagnoses / Procedures Referred By Contact Refer red To Contact Psychiatry Diagnoses Hepatitis C Maida Pineda APRN [facility] Psychiatry 5d [facility] D R [facility] [place] [address] [place] [address] Fax: Referral ID Status Reason Start Date Expiration Date Visits V isits Requested Authorized [id number] Closed Consult, 12/31/2011 06/28/2012 3 3 Test & Treat Reason for Visit Reason Comments Follow-up Encounter Details Date Type Department Care Team Description 12/31/2011 Follow-Up Gastroenterology at [facility] Maida Pineda Hepatitis C (Primary [facility] Chrissy arellano APRN Dx) [place] [address] [place] [address] [facility] DEPT. [place], [place] [address] Social History Tobacco Use Types [...] Sign Reading Time Taken Comments Blood Pressure 130/90 12/31/2011 11:05 AM EST Pulse 64 12/31/2011 11:05 AM EST Temperature - - Respiratory Rate - - Oxygen Saturation - - Inhaled Oxygen Concentration - - Weight 96.8 kg (213 lb 6.4 oz) 12/31/2011 11:05 AM EST Height 179.1 cm (5' 10.5) 12/31/2011 11:05 AM EST Body Mass Index 30.19 12/31/2011 11:05 AM EST documented in this encounter Progress Notes Maida Pineda, WELDING MACHINE OPERATOR [employer]PER [employer] - 12/31/2011 11:09 AM EST Subjective: Patient ID: Iban Palomares is a 46 y.o. male. HPI Mr. Palomares is a 46 year old male who was diagnosed with Hepatitis C, genotype 1b. He was first diagnosed 17 years ago while incarcerated. He had a liver biopsy in the in [place], he does not know what the biopsy showed but believes that he was told that he should not get treated. His risk factors for viral acquisition include IVDU from age [age], he also used intranasal drugs intermittently from age [age]. He has multiple tattoo's some of which were not clearly sterile, none while incarcerated. He has never had a blood transfusion, no known hepatitis C contacts. He has a history of bipolar disorder and is currently on lamicatal. He was hospitalized for suicide attempts 3-4 times. The last attempt was 2-3 years ago, he had a recent DUI and felt quite down at the time. He occasionally skipped his lithium dose. He was drunk each time he had a suicide attempt. Hedenies thoughts of suicide since getting sober 7 months ago. He has been sober for 7 months. He quit on his own. He denies cravings for alcohol. He was not courtordered. He states his was going to leave him and realized that alcohol was a problem for him and decided to quit. His liver biopsy reveals bridging fibrosis. ---Pathologic Diagnosis--- Liver, needle biopsy specimen showing portal lymphocytic aggregates, moderate interface hepatitis and moderate lobular necroinflammatory activity. Trichrome stain shows portal fibrosis, fibrous septa and bridging fibrosis. Iron stain is negative for iron deposition. The findings are consistent with chronic hepatitis C, stage 3/4, grade 3/4 (moderate activity). OUTSIDE STUDIES: abd U/S 09/17/2011 Liver upper limits of normal in size Normal echogenicity 10/12/2011 Wbc 6.8 Hg 16.9 plt 278 Alt 147, ast 108, alb 4.4, ap 90, tbili 0.6, tprot 8.3 Creat 0.8 na 136, kcl 4.6 Review of Systems Constitutional: Negative for fever, chills and fatigue. HENT: Negative for nosebleeds. Respiratory: Negative for cough and shortness of breath. Cardiovascular: Negative for chest pain and palpitations. Gastrointestinal: Negative for nausea, vomiting, abdominal pain, diarrhea, constipation and blood instool. Genitourinary: Negative for dysuria and hematuria. Musculoskeletal: Positive for back pain and arthralgias. Skin: Negative for rash. Neurological: Negative for seizures. Hematological: Does not bruise/bleed easily. Psychiatric/Behavioral: Negative for suicidal ideas. Objective: Physical Exam Constitutional: He appears well-developed and well-nourished. HENT: Head: Normocephalic and atraumatic. Eyes: Pupils are equal, round, and reactive to light. No scleral icterus. Abdominal: Bowel sounds are normal. There is no hepatosplenomegaly. Psychiatric: He has a normal mood and affect. His behavior is normal. Assessment and Plan: Mr. Palomares is a 46 year old male with a long history of alcohol abuse and concomitant Hepatitis C infection and a recent biopsy which shows bridging fibrosis. 1. Hepatitis C, genotype 1, CC genotype and naive to treatment. I would like to consider treating him with triple therapy. He has a few issues which need to be addressed prior to treatment. He will schedule an EKG and dilatated eye exam. Also will have to make a alternative medication plan for three medications which have drug drug interactions with the TElaprevir. The telaprevir portion of the treatment will only be 12 weeks, but will need to have medication adjustments for the two weeks prior to the treatment the 12 weeks he is to be on the drug and for 2 weeks after stopping the drug, or a totalof 4 months. The drugs in question are the fentanyl patch, klonipin and advair. The fentanyl needs to be changed and most other narcotics do not present a problem. The methadone which he takes may become more effective during the 12 weeks of the telaprevir. The klonipin could likely be cut in half during the 4 months in question. The Advair will need to be changed or discontinued for the 4 months, I will leave that up to your discretion. It is the fluticasone which presents the problem with this medication. He will be able to use his albuterol rescue inhaler without trouble. 2. Depression, given his history of bipolar disease will go ahead and have him see our psychiatrist here in GI clinic, for ongoing support during the Hepatitis C treatment. He appears stable from a psychiatric standpoint and has been sober for 7 months. It seems that his depression is worsened by alcohol and the ramifications of alcohol abuse. Now that he is sober and committed to maintaining his sobriety, he is able to stay with his and she is supportive of him and will continue to support himduring treatment which would be necessary. Will plan to see him back in February for a teaching session to initiate Hepatitis C therapy. documented in this encounter Plan of Treatment Upcoming Encounters Date Type Specialty Care Team Description 07/14/2022 TH Visit (TeleHealth) Palliative Care Kian Zelaya APRN [facility] ER PALLIATIVE MEDIC [place], [place] [address] (Wo rk) 07/22/2022 TH Visit (TeleHealth) Palliative Care Benoit Lei WELDING MACHINE OPERATOR [employer]PER [employer] [facility] [place] [address] Criselda Zelaya WELDING MACHINE OPERATOR [employer] [facility] [place] [address] 08/12/2022 Office Visit Cardiology Hari Summers MD [facility] [place] [address] Kit Bonilla MD [facility] [place] [address] Scheduled Referrals Name Type Priority Associated Order Schedule Diagnoses REFERRAL TO Outpatient Referral Routine Hepatitis C Ordered: PSYCHIATRY 12/31/2011 documented as of this encounter Results EKG 12 Lead (02/17/2012 3:09 PM EDT) Component Value Ref Range Test Analysis Performed Pathologis t Method Time At Signature Ventricular rate 59 BPM MUSE SYSTEM Atrial Rate 59 BPM MUSE SYSTEM P-R Interval 188 ms MUSE SYSTEM QRS Duration 108 ms MUSE SYSTEM Q-T Interval 412 ms MUSE SYSTEM QTC Calculated 407 ms MUSE SYSTEM (Bezet) Calculated P Romeo 20 degrees MUSE SYSTEM Calculated R Romeo 37 degrees MUSE SYSTEM Calculated T Romeo 19 degrees MUSE SYSTEM INTERPRETATION Sinus bradycardia MUSE SY STEM Otherwise normal ECG When compared with ECG of 30-DEC-2008 19:16, Premature ventricular complexes are no longer Present Vent. rate has decreased BY ??48 BPM QT has shortened Confirmed by MD SOTERO, TONY ([id number]) on 02/18/2012 5:44:34 PM Specimen Anatomical Collection Method Collection Time Receive d Time (Source) Location / / Volume Laterality 02/17/2012 3:09 PM 2 5:44 EDT PM EDT Yusuf Longoria MD ECG ORDERABLES Performing Organization Address City/State/ZIP Code Phon e Number MUSE SYSTEM documented in this encounter Visit Diagnoses Diagnosis Hepatitis C - Primary Unspecified viral hepatitis C without he patic coma documented in this encounter Care Teams Physician Ophthalmologist Relationship Specialty Start Date End Date Abdelrahman Gonzales APRN PCP - General 05/04/11 03/23/22 [address] [place] [address] documented as of this encounter
--- OUTSIDE RECORDS SUMMARY | 2022-07-12 08:58 | XMS_ITS | Encounter Summary ---
:1965 Author Organization [facility] [place] [address] Care Team Providers Name Role Phone Abdelrahman Gonzales APRN Primary Care Provider [phone] Encounter Details Date Type Department Care Team Description 05/05/2012 Telephone Gastroenterology at [facility] Alia Douglas, [place] [address] Social History Tobacco Use Types Packs/Day [...] encounter Miscellaneous Notes Telephone Encounter - Alia Douglas RN - 05/05/2012 2:17 PM EDT Call from patient stating that he never stopped Hep C meds as instructed following communication dated 04/20/12. He states he plans to continue treatment because he is doing fine. He was not able to keep his appointment in clinic today because his car does not work. Advised patient the information would be passed along to Kian Pineda NP. Call placed to [facility] and verified that patient's file has been closed and there would be no further shipments. They will require new scripts if shipments are to resume. documented in this encounter Plan of Treatment Upcoming Encounters Date Type Specialty Care Team Description 07/14/2022 TH Visit (TeleHealth) Palliative Care Kian Zelaya APRN [facility] PALLIATIVE MEDIC [place]SS[place], [place] [address] (Wo rk) 07/22/2022 TH Visit (TeleHealth) Palliative Care Benoit Lei APRN [facility] [place] [address] Criselda Zelaya APRN [facility] [place] [address] 08/12/2022 Office Visit Cardiology Hari Summers MD [facility] [place] [address] Kit Bonilla MD [facility] [place] [address] documented as of this encounter Visit Diagnoses Not on filedocumented in this encounter Care Teams Front Maker Relationship Specialty Start Date End Date Abdelrahman Gonzales APRN PCP - General 05/04/11 03/23/22 [address] [place] [address] documented as of this encounter
--- OUTSIDE RECORDS SUMMARY | 2022-07-12 08:58 | XMS_ITS | Encounter Summary ---
:1965 Author Organization [place] [address] Care Team Providers Name Role Phone Abdelrahman Gonzales SREEDHAR Primary Care Provider [phone] Encounter Details Date Type Department Care Team Description 02/01/2013 Anesthesia Event Main Operating Room Jaxon Song MD [facility] [place] [address] [facility] Armando Ferrara MD [facility] [place] [address] [place] [address] Anesthesia Record Procedure Summary Procedure Name Responsible Anesthesia Start Anesthesia Stop Anesthesiologist Time Time LAMINOTOMY Jaxon Gentile MD 02/01/13 1037 02/01/13 124 2 W\DECOMPRESSION, ONE LVL, LUMBAR ,RE-EXPL (INCLDNG PART. FACETECTOMY, FORAMINOTOMY &\OR DISCECTOMY) (WRVU 18.76) (N/A Spine Lumbar) Events Date Time Event Comment 02/01/2013 0939 1037 Start 1040 AN Verify 1040 An Start Data 1048 An Induction 1050 An Intubation 1059 Anesthesia Ready 1231 Extubation/LMA Out 1231 an stop data 1242 Stop Name Total Midazolam 2 mg fentaNYL 350 mcg Propofol 400 mg Rocuronium 70 mg Ondansetron 4 mg Dexamethasone 4 mg Neostigmine 4 mg Glycopyrrolate 1 mg Lidocaine 2% 2 mL ceFAZolin (ANCEF) 2g in dextrose 5% 50 mL 3 g lactated ringers infusion 1,000 mL 0 mL lactated ringers infusion 1,000 mL 0 mL Agents Name O2 Air N2O Sevoflurane (et) Desflurane (et) Blood No blood administrations on file. Lines, Drains, and Airways Type Details Placement Removal Incision 02/01/13; lumbar spine; 02/01/13 0000 by 2 1316 by 05/08/22; 1316 Rossy Rodas RN Clemente, Aly ssa M, RN PIV 02/01/13; 0944; 02/01/13 0944 by 02/01/13 1451 b y 02/01/13; 1451 Cate Murillo McCarthy, El aine T, RN RN (RETIRED) Mask Ventilation: 02/01/13 1126 by 02/01/13 1231 by Non-Surgical Airway Adjunct (2); ETT Type: Kasi Hall, Cuffed; ETT Size: 8 mm; Oral Airway: 90 mm (4) Urethral Catheter 02/01/13; 1227; 02/01/13 1227 by 02/01/13 1229 by intermittent catheter; Rossy Rodas RN Bolash, Mary K, ANA latex; 18; other (see comments) (INSERTED AND REMOVED); 1; (100ML OBTAINED POST OP); 02/01/13; 1229 documented in this encounter Social History Tobacco [...] encounter OR Notes Anesthesia Postprocedure Evaluation - Jaxon Gentile MD - 02/01/2013 2:44 PM EDT Patient: Iban Palomares Procedure(s) Performed: Procedure(s): LAMINOTOMY W\DECOMPRESSION, ONE LVL, LUMBAR ,RE-EXPL (INCLDNG PART. FACETECTOMY, FORAMINOTOMY &\OR DISCECTOMY) MODIFIER METRX SYS. Actual Anesthetic: general Patient location: PACU Post-op pain: Adequate analgesia Post-op nausea: no nausea or vomiting Last Vitals: Filed Vitals: 02/01/13 1315 BP: 144/77 Pulse: 50 Temp: Resp: 16 Post-op cardiovascular and respiratory status: is stable Level of consciousness: awake Complications: no apparent complications Fluid Status: normal Anesthesia Preprocedure Evaluation - Jaxon Gentile MD - 01/31/2013 6:37 PM EDT Today I evaluated Iban Palomares a 47 y.o. male. Procedure(s): LAMINOTOMY W\DECOMPRESSION, ONE LVL, LUMBAR ,RE-EXPL (INCLDNG PART. FACETECTOMY, FORAMINOTOMY &\OR DISCECTOMY) MODIFIER METRX SYS. Patient Active Problem List Diagnoses ??? Hepatitis c, chronic ??? Lumbar disc herniation Past Medical History Diagnosis Date ??? Asthma ??? Bipolar 1 disorder ??? COPD (chronic obstructive pulmonary disease) ??? Herniated disc ??? HTN (hypertension) Past Surgical History Procedure Date ??? Laminotomy, lumbar disk, 1 intrsp 06/17/2011 LAMINOTOMY, DECOMPRESSION, FORAMINOTOMY, LUMBAR performed by ANDI PURCELL at [facility] MAIN OR ??? Hernia repair ??? Hand surgery ??? Needle biopsy liver 12/22/2011 LIVER BIOPSY performed by RITA ORLANDO at [facility] ENDOSCOPY History Substance Use Topics ??? Smoking status: Current Everyday Smoker -- 1.0 packs/day for 28 years Types: Cigarettes ??? Smokeless tobacco: Not on file Comment: 6 cigs daily ??? Alcohol Use: No May 02, 2011 sober date No Known Allergies Medications: MAR and/or home medications have been reviewed. Physical Exam: There were no vitals filed for this visit. There is no height or weight on file to calculate BMI. Airway Assessment: Mallampati: II TM distance: >3 FB Neck ROM: full Cardiovascular Assessment: Rhythm: regular Rate: normal (-) murmur Pulmonary Assessment: breath sounds clear to auscultation Dental Assessment: Comment: poor Misc Assessment: Patient is wearing No contact(s). IV access: Peripheral line Anesthesia Plan: ASA 2 general, with a(n) intravenous induction 47 y.o. male here for decompression laminotomy. Past medical history, past surgical history, medications, and allergies reviewed; notable for hepatitis C, asthma, HTN, and chronic pain. HTN is fairly well controlled, as is asthma. Asthma characterized as childhood onset, currently managed with albuterol and advair inhalers. No recent hospitalizations. Last flare 3 weeks ago. Afebrile, lungs clear, asymptomatic currently. Pain low back with RLE hypesthesias, opioid dependent, VAS 9/10 daily, has tried PT and epidural steroid injections. alternatives of anesthetic plan discussed. Plan: GA/ETT, ketamine infusion. Additional PIV. R/B discussed. Consent signed. Region - Other Informed Consent: Anesthetic plan and risks discussed with patient. Use of blood products discussed with patient whom. [facility]. Assessment: documented in this encounter Miscellaneous Notes Addendum Note - Jaxon Gentile MD - 02/19/2013 11:57 AM EDT Addendum created 02/19/13 1157 by Jaxon Gentile MD Modules edited:Anesthesia Attestations Addendum Note - Jaxon Gentile MD - 02/19/2013 11:57 AM EDT Addendum created 02/19/13 1157 by Jaxon Gentile MD Modules edited:Anesthesia Attestations documented in this encounter Plan of Treatment Upcoming Encounters Date Type Specialty Care Team Description 07/14/2022 TH Visit (TeleHealth) Palliative Care Kian Zelaya [facility] PALLIATIVE MEDIC [place], [place] [address] (Wo rk) 07/22/2022 TH Visit (TeleHealth) Palliative Care Benoit Lei [facility] [place] [address] Criselda Zelaya [facility] [place] [address] 08/12/2022 Office Visit Cardiology Hari Summers MD [facility] [place] [address] Kit Bonilla MD [facility] [place] [address] documented as of this encounter Visit Diagnoses Not on filedocumented in this encounter Administered Medications Inactive Administered Medications - up to 3 most recent administrations Medication Order MAR Action Action Date Dose Rate Site ceFAZolin (ANCEF) 2g in dextrose 5% Given 02/01/2013 11:29 AM ED T 2 g 50 mL 2 g, Intravenous, ONCE, 1 dose, On Deborah 02/01/13 at 0945, To be administered upon arrival to the OR within one hour prior to incision., Day of Surgery (Day of Procedure), Indication for (Active or Suspected): Prophylaxis Given 02/01/2013 10:55 AM EDT 1 g dexamethasone (DECADRON) injection Given 02/01/2013 11:39 AM EDT 4 mg PRN, Starting on Deborah 02/01/13 at 1139, Until Deborah 02/01/13 at 1242, Anesthesia Intra-op, Routine fentaNYL 50mcg/mL injection Given 02/01/2013 12:34 PM EDT 50 mcg PRN, Starting on Deborah 02/01/13 at 1048, Until Deborah 02/01/13 at 1242, Pain, Anesthesia Intra-op, Routine Given 02/01/2013 11:43 AM EDT 50 mcg Given 02/01/2013 11:02 AM EDT 50 mcg glycopyrrolate (ROBINUL) injection Given 02/01/2013 12:15 PM EDT 0.8 mg PRN, Starting on Deborah 02/01/13 at 1119, Until Deborah 02/01/13 at 1242, Anesthesia Intra-op, Routine Given 02/01/2013 11:19 AM EDT 0.2 mg lactated ringers infusion 1,000 mL New Bag 02/01/2013 10:31 AM EDT mL 1,000 mL, at 100 mL/hr, Intravenous, CONTINUOUS, Starting on Deborah 02/01/13 at 0945, Until Deborah 02/01/13 at 1716, Day of Surgery (Day of Procedure) Lidocaine (PF) 20 mg/mL (2 %) Given 02/01/2013 10:46 AM EDT 2 mLs PRN, Starting on Deborah 02/01/13 at 1046, Until Deborah 02/01/13 at 1242, Anesthesia Intra-op, Routine midazolam (VERSED) injection Given 02/01/2013 10:46 AM EDT 2 mg PRN, Starting on Deborah 02/01/13 at 1046, Until Deborah 02/01/13 at 1242, Sleep, Anesthesia Intra-op, Routine neostigmine (PROSTIGMINE) injection Given 02/01/2013 12:15 PM EDT 4 mg PRN, Starting on Deborah 02/01/13 at 1215, Until Deborah 02/01/13 at 1242, Anesthesia Intra-op, Routine ondansetron (ZOFRAN) injection Given 02/01/2013 12:13 PM EDT 4 mg PRN, Starting on Deborah 02/01/13 at 1213, Until Deborah 02/01/13 at 1242, Nausea, Anesthesia Intra-op, Routine propofol (DIPRIVAN) 10 mg/mL bolus injection Given 08/2013 10:50 AM EDT 100 mg (Anesthesia) PRN, Starting on Deborah 02/01/13 at 1048, Until Debroah 02/01/13 at 1242, Anesthesia Intra-op Given 02/01/2013 10:48 AM EDT 300 mg rocuronium (ZEMURON) injection Given 02/01/2013 11:48 AM EDT 10 mg PRN, Starting on Deborah 02/01/13 at 1118, Until Deborah 02/01/13 at 1242, Anesthesia Intra-op, Routine Given 02/01/2013 11:18 AM EDT 10 mg Given 02/01/2013 10:45 AM EDT 50 mg documented in this encounter Care Teams Timber Treatment Plant Operator Relationship Specialty Start Date End Date Abdelrahman Gonzales APRN PCP - General 05/04/11 03/23/22 [address] [place] [address] documented as of this encounter
--- OUTSIDE RECORDS SUMMARY | 2022-07-12 08:58 | XMS_ITS | Encounter Summary ---
:1965 Author Organization [facility] [place] [address] Care Team Providers Name Role Phone Hugo Gonzalesgracie Rogers APRN Primary Care Provider [phone] Encounter Details Date Type Department Care Team Description 12/22/2011 Anesthesia Event Gastroenterology at [facility] [place] [address] [facility] [phone] ANESTHESIOLOGY DEPT. [place], [place] [address] Anesthesia Record Procedure Summary Procedure Name Responsible Anesthesia Start Anesthesia Stop Time Anesthesiologist Time LIVER BIOPSY (N/A Trunk) Events No events on file. No medications [...] TH Visit (TeleHealth) Palliative Care Kian Zelaya TRANSFER PUMPER [facility] PALLIATIVE MEDIC [place], [place] [address] (Wo rk) 07/22/2022 TH Visit (TeleHealth) Palliative Care Benoit Lei [employer] [facility] [place] [address] Criselda Zelaya [employer] [facility] [place] [address] 08/12/2022 Office Visit Cardiology Hari Summers MD [facility] [place] [address] Kit Bonilla MD [facility] [place] [address] documented as of this encounter Visit Diagnoses Not on filedocumented in this encounter Care Teams Plating Machine Operator Relationship Specialty Start Date End Date Abdelrahman Gonzales APRN PCP - General 05/04/11 03/23/22 [address] [place] [address] documented as of this encounter
--- OUTSIDE RECORDS SUMMARY | 2022-07-12 08:58 | XMS_ITS | Encounter Summary ---
:1965 Author Organization [facility] [place] [address] Care Team Providers Name Role Phone Abdelrahman Gonzales APRN Primary Care Provider [phone] Encounter Details Date Type Department Care Team Description 06/28/2013 Orders Only Gastroenterology at [facility] Maida Pineda, Chronic hepatitis C [facility] Chrissy arellano APRN (Primary Dx) [place] [address] [facility] [phone] C[place] [address] Social History Tobacco Use Types Packs/Day Years [...] TH Visit (TeleHealth) Palliative Care Kian Zelaya RIM ROLLER OPERATOR [facility] ER PALLIATIVE MEDIC [place], [place] [address] (Wo rk) 07/22/2022 TH Visit (TeleHealth) Palliative Care Benoit Lei [facility] [place] [address] Criselda Zelaya RIM ROLLER OPERATOR [facility] [place] [address] 08/12/2022 Office Visit Cardiology Hari Summers MD [facility] [place] [address] Kit Bonilla MD [facility] [place] [address] documented as of this encounter Visit Diagnoses Diagnosis Chronic hepatitis C - Primary Chronic hepatitis C without mention of h epatic coma documented in this encounter Care Teams Reptile Farmer Relationship Specialty Start Date End Date Abdelrahman Gonzales APRN PCP - General 05/04/11 03/23/22 [address] [place] [address] documented as of this encounter
--- OUTSIDE RECORDS SUMMARY | 2022-07-12 08:58 | XMS_ITS | Encounter Summary ---
:1965 Author Organization [facility] [place] [address] Care Team Providers Name Role Phone Abdelrahman Gonzales APRN Primary Care Provider [phone] Encounter Details Date Type Department Care Team Description 02/21/2012 Telephone Gastroenterology at [facility] Maida Pineda APRN [facility] Chrissy [facility] [address] GASTROENTEROLOGY [phone] DEPT. [place], [place] [address] Social History Tobacco Use Types [...] this encounter Miscellaneous Notes Telephone Encounter - Xuan Reyes RN - 02/21/2012 11:08 AM EDT Patient calls today in regarding to upcoming teaching visit to learn about Hep C treatment regimen. He wants to be proactive about discontinuing the Fentanyl patch. Recommended he call primary care office to discuss alternative, or whether he can possibly wean off without a replacement medication. Will fax [employer] information to Dr. Gonzales to assist in decision making. documented in this encounter Plan of Treatment Upcoming Encounters Date Type Specialty Care Team Description 07/14/2022 TH Visit (TeleHealth) Palliative Care Kian Zelaya APRN [facility] PALLIATIVE MEDIC [place], [place] [address] (Wo rk) 07/22/2022 TH Visit (TeleHealth) Palliative Care Benoit Lei APRN [facility] [place] [address] BroCriselda gimenez APRN [facility] [place] [address] 08/12/2022 Office Visit Cardiology Hari Summers MD [facility] [place] [address] Kit Bonilla MD [facility] [place] [address] documented as of this encounter Visit Diagnoses Not on filedocumented in this encounter Care Teams Cruise Counselor Relationship Specialty Start Date End Date Abdelrahman Gonzales APRN PCP - General 05/04/11 03/23/22 [address] [place] [address] documented as of this encounter
--- OUTSIDE RECORDS SUMMARY | 2022-07-12 08:58 | XMS_ITS | Encounter Summary ---
:1965 Author Organization [facility] [place] [address] Care Team Providers Name Role Phone Abdelrahman Gonzales APRN Primary Care Provider [phone] Reason for Visit Reason Comments GI Problem Encounter Details Date Type Department Care Team Description 07/05/2012 Follow-Up Gastroenterology at [facility] Maida Pineda, Hepatitis c, chronic [facility] Chriss[place] [address] [place] [address] CENTER GASTROENTEROLOGY DEPT. [place], [place] [address] Social History Tobacco Use Types [...] Sign Reading Time Taken Comments Blood Pressure 126/82 07/05/2012 2:33 PM EDT Pulse 62 07/05/2012 2:33 PM EDT Temperature - - Respiratory Rate - - Oxygen Saturation - - Inhaled Oxygen Concentration - - Weight 85.3 kg (188 lb) 07/05/2012 2:33 PM EDT Height 182.9 cm (6') 07/05/2012 2:33 PM EDT Body Mass Index 25.5 07/05/2012 2:33 PM EDT documented in this encounter Progress Notes Maida Pineda, HALL CLERK - 07/05/2012 2:46 PM EDT Subjective: Patient ID: Iban Palomares is a 46 y.o. male. GI Problem The primary symptoms include fatigue and rash. Primary symptoms do not include fever, nausea, vomiting, diarrhea or arthralgias. The illness does not include chills. CURRENT PROBLEM LIST: 1.) Chronic Hepatitis C Genotype: 1 Liver biopsy:(12/22/11) G3 S 3 Prior treatment history: naive PREVENTATIVE HEALTH: Hepatitis A: Hepatitis B: EGD: Colonoscopy: HIV status: PRETREATMENT ASSESSMENTS: Eye exam: EKG: sinus kathleen Drug interactions:Fentanyl, klonipin Psych: control method: partner had tubal ligation CURRENT HCV TREATMENT: Start Date: 04/19/2012 Initial medications: 180 Pegasys mcg / 1200 mg Ribavirin / 750 mg telaprevir Dose reductions/ escalations: Completed tx week/ planned duration of tx: IFN dose day: Tuesday Significant side effects: baseline week 2 week 4 Week 8 Week 12 14,890 <25- <25- <43- Mr. Palomares is a 46 year old male who started Hepatitis C treatment on April 19. He took one or two doses of interferon and called the office stating he wanted to kill the dog. He was getting agitated,he reports that he called the office with these complaints and he wanted to get more ativan. He was advised to discontinue treatment, he continued to take his medication and get labs. At week two the virus was undetected. He continued on treatment and has had his psych meds changed a bit. He reports that he is doing fine, no SI or HI. He is struggling with the early am fat requirements, he denies missed doses. He has lost 25 pounds since starting the treatment. He has been having some anxiety and difficultly sleeping and his lamictal dose was increased last week. He also has a slight rash on his elbows and some pruritus with out visible rash on his chest. He hasbeen using hydrocortisone cream with good effect on these areas. Review of Systems Constitutional: Positive for fatigue. Negative for fever and chills. HENT: Negative for nosebleeds. Respiratory: Negative for cough and shortness of breath. Cardiovascular: Negative for chest pain. Gastrointestinal: Negative for nausea, vomiting and diarrhea. Musculoskeletal: Negative for arthralgias. Skin: Positive for rash. Psychiatric/Behavioral: Negative for suicidal ideas and sleep disturbance. The patient is nervous/anxious (now controlled). Objective: Physical Exam Constitutional: He is oriented to person, place, and time. He appears well- developed and well-nourished. HENT: Head: Normocephalic and atraumatic. Eyes: Pupils are equal, round, and reactive to light. No scleral icterus. Neck: No thyromegaly present. Cardiovascular: Normal rate, regular rhythm and normal heart sounds. No murmur heard. Pulmonary/Chest: Effort normal. He has no wheezes. Abdominal: Soft. Bowel sounds are normal. No tenderness. Musculoskeletal: He exhibits no edema. Neurological: He is alert and oriented to person, place, and time. Skin: Skin is warm and dry. Rash (skin toned papular lesions on bilat elbows,) noted. Psychiatric: He has a normal mood and affect. His behavior is normal. Assessment and Plan: 1. Hepatitis C, now with a rapid response to treatment with an undetected viral load at week 2, he would require 24 weeks of treatment if this response continues. His viral load has remained undetected. 2. Anxiety currently well controlled, he denies SI or HI. 3. Skin rash, quite mild continue current meds and can use hydrocortisone prn. He will get labs once a month the same day as his appointment, he will get labs today, cbc, hepatic function, tsh and viral load. documented in this encounter Plan of Treatment Upcoming Encounters Date Type Specialty Care Team Description 07/14/2022 TH Visit (TeleHealth) Palliative Care Kian Zelaya APRN [facility] ER PALLIATIVE MEDIC [place], [place] [address] (Wo rk) 07/22/2022 TH Visit (TeleHealth) Palliative Care Benoit Lei HALL CLERK [facility] [place] [address] Criselda Zelaya HALL CLERK [facility] [place] [address] 08/12/2022 Office Visit Cardiology Hari Summers MD [place] [address] Kit Bonilla MD [facility] [address] documented as of this encounter Procedures Procedure Name Priority Date/Time Associated Diagnosis Comme nts HCV QUANT Routine 07/05/2012 3:15 PM Hepatitis c, chronic R esults for this EDT procedure are i n the results section. DIFFERENTIAL, Routine 07/05/2012 3:15 PM Results for this AUTOMATED EDT procedure are i n the results section. HEPATITIS C RNA, Routine 07/05/2012 3:15 PM Hepatitis c, chron ic QUANTITATIVE, PCR EDT CBC (WITH DIFF) Routine 07/05/2012 3:15 PM Hepatitis c, chroni c Results for this EDT procedure are i n the results section. TSH Routine 07/05/2012 3:15 PM Hepatitis c, chronic R esults for this EDT procedure are i n the results section. HEPATIC FUNCTION Routine 07/05/2012 3:15 PM Hepatitis c, chron ic Results for this PANEL EDT procedure are i n the results section. documented in this encounter Results (ABNORMAL) DIFFERENTIAL, AUTOMATED (07/05/2012 3:15 PM EDT) [facility] gist Method Time Signature Neutrophils % 41.8 34.0 - CERNER 71.0 % MILLENNIUM Neutr Abs (ANC) 1.80 1.50 - CERNER 6.30 MILLENNIUM x10(3)/mc L Lymphocytes % 40.0 19.0 - CERNER 53.0 % MILLENNIUM Lymphocytes Abs 1.7 1.0 - 3.6 CERNER x10(3)/mc MILLENNIUM L Monocytes % 14.7 (H) 4.0 - CERNER 13.0 % MILLENNIUM Monocyte Abs 0.6 0.2 - 1.0 CERNER x10(3)/mc MILLENNIUM L Eosinophils % 3.3 0.0 - 7.0 CERNER % MILLENNIUM Eosinophils Abs 0.1 0.0 - 0.5 CERNER x10(3)/mc MILLENNIUM L Basophils % 0.0 0.0 - 2.0 CERNER % MILLENNIUM Basophils Abs 0.0 0.0 - 0.2 CERNER x10(3)/mc MILLENNIUM L Immature Gran % 0.20 0.00 - CERNER 0.66 % MILLENNIUM Comment: Immature granulocytes(IG's)percentage an d absolute count will include metamyelocytes, myelocytes, and promyelo cytes. Blood smears from CBCs yielding IG's will be scanned manually for concor dance. If this scan disagrees with the automated IG or if promyelocytes are not ed, a manual differential will be performed. Cathy Gran Abs 0.01 0.00 - 0.05 x10(3)/mcL CER NER [facility] Specimen Anatomical Collection Method Collection Time Receive d Time (Source) Location / / Volume Laterality Blood specimen 07/05/2012 3:15 PM 012 3:26 (specimen) EDT PM EDT Yusuf Longoria MD HEMATOLOGY ORDERABLES Performing Organization Address City/[facility] Phon e Number [address] [facility] QUANT (07/05/2012 3:15 PM EDT) Component Value Ref Test Analysis Performed At [facility] gist Range Method Time Signature HCV Viral <43 IU/mL [facility] HCV Viral Result: < 43 Target Not Detected [facility] Indication for Study: Hepatitis C Infection Analysis: A quantitiative real time reverse transcriptase PC R assay was performed on extracted viral RNA for the purpose of quantifi cation. Sample: plasma (0.5 mL minimun volume) Method: Eva Emmie TaqMAN 48 HCV Linear Range: 43IU/mL - 69,000,000IU/mL (95% CI) Interpretation: The result of this analysis is w ithin the limits of detection of the assay. Note: This assay is being pe rformed in the [facility] Molecular Pathology Laboratory. Tunde Lester, Ph.D. Director, Molecular Pathology Comment: [VERIFIED DATE]07.10.12 Verified By:Pamela Perdomo (Electronic Signature) Specimen Anatomical Collection Method Collection Time Receive d Time (Source) Location / / Volume Laterality Blood specimen 07/05/2012 3:15 PM 012 8:08 (specimen) EDT AM EDT Resulting Agency Comment Spec In Lab Yusuf Longoria MD HEMATOLOGY ORDERABLES Performing Organization Address City/[facility] [place] [address] [facility] Hepatic Function Panel (07/05/2012 3:15 PM EDT) P athologist Signature Total Protein 7.8 6.4 - 8.3 CERNER gm/dL MILLENNIUM Albumin 4.3 3.2 - 5.2 CERNER gm/dL MILLENNIUM AST 30 0 - 39 CERNER unit/L MILLENNIUM ALT 19 0 - 55 CERNER unit/L MILLENNIUM Alk Phos 88 40 - 120 CERNER unit/L MILLENNIUM Total 0.7 0.2 - 1.3 CERNER Bilirubin mg/dL MILLENNIUM Bili, Direct 0.2 0.0 - 0.3 CERNER mg/dL MILLENNIUM Specimen Anatomical Collection Method Collection Time Receive d Time (Source) Location / / Volume Laterality Blood specimen 07/05/2012 3:15 PM 012 3:26 (specimen) EDT PM EDT Resulting Agency Comment Spec In Lab Yusuf Longoria MD CHEMISTRY ORDERABLES Performing Organization Address City/State/[place] [address] CERNER MILLENNIUM (ABNORMAL) CBC (with Diff) (07/05/2012 3:15 PM EDT) P athologist Signature WBC 4.3 4.0 - 10.0 CERNER x10(3)/mcL MILLENNIUM RBC 4.21 (L) 4.63 - CERNER 6.08 MILLENNIUM x10(6)/mcL Hemoglobin 12.7 (L) 13.7 - CERNER 17.5 gm/dL MILLENNIUM Hematocrit 37.7 (L) 40.0 - CERNER 51.0 % MILLENNIUM MCV 89.5 79.0 - CERNER 92.0 fL MILLENNIUM MCH 30.2 25.6 - CERNER 32.2 pg MILLENNIUM MCHC 33.7 32.0 - CERNER 36.5 gm/dL MILLENNIUM Platelets 174 145 - 370 CERNER x10(3)/mcL MILLENNIUM RDWSD 44.4 35.0 - CERNER 46.0 fL MILLENNIUM RDWCV 13.7 10.9 - CERNER 14.4 % MILLENNIUM MPV 10.5 9.0 - 12.0 CERNER fL MILLENNIUM Specimen Anatomical Collection Method Collection Time Receive d Time (Source) Location / / Volume Laterality Blood specimen 07/05/2012 3:15 PM 012 3:26 (specimen) EDT PM EDT Resulting Agency Comment Spec In Lab Yusuf Longoria MD HEMATOLOGY ORDERABLES Performing Organization Address City/[facility]/[place] [address] CERNER MILLENNIUM TSH (07/05/2012 3:15 PM EDT) P athologist Signature TSH 0.78 0.27 - 4.20 CERNER mcIU/mL MILLENNIUM Specimen Anatomical Collection Method Collection Time Receive d Time (Source) Location / / Volume Laterality Blood specimen 07/05/2012 3:15 PM 012 3:26 (specimen) EDT PM EDT Resulting Agency Comment Spec In Lab Yusuf Longoria MD CHEMISTRY ORDERABLES Performing Organization Address City/[facility]/[place] [address] CERNER MILLENNIUM documented in this encounter Visit Diagnoses Diagnosis Hepatitis C, chronic Chronic hepatitis C without mention of h epatic coma documented in this encounter Care Teams Adult Basic Studies Teacher Relationship Specialty Start Date End Date Abdelrahman Gonzales APRN PCP - General 05/04/11 03/23/22 [address] [place] [address] documented as of this encounter
--- OUTSIDE RECORDS SUMMARY | 2022-07-12 08:58 | XMS_ITS | Encounter Summary ---
:1965 Author Organization [place] [address] Care Team Providers Name Role Phone Abdelrahman Gonzales APRN Primary Care Provider [phone] Encounter Details Date Type Department Care Team Description 08/25/2012 Telephone Gastroenterology at [facility] Alia Douglas, [place] [address] Social History Tobacco Use Types Packs/Day [...] Telephone Encounter - Alia Douglas RN - 08/29/2012 8:05 AM EST Call to patient and he agrees with this plan Telephone Encounter - Maida Pineda APRN - 08/28/2012 5:26 PM EST Yes he can restart the other medications at this point, he should still follow up this week in clinic [facility] Telephone Encounter - Alia Douglas RN - 08/25/2012 9:25 AM EDT Patient calling to ask if he can resume fentanyl and methadone now that he has completed telaprivir.He is asking if he can resume them now or should he wait until he sees Kian Pineda NP on Tuesday. Will forward this question to Kian Pineda NP Telephone Encounter - Alia Douglas RN - 08/25/2012 9:08 AM EDT Message left by patient on nurse's VM requesting a call back regarding methadone and fentanyl. Attempted to return patient's call and message left on patient's VM asking patient to call back documented in this encounter Plan of Treatment Upcoming Encounters Date Type Specialty Care Team Description 07/14/2022 TH Visit (TeleHealth) Palliative Care Kian Zelaya ENVIRONMENTAL QUALITY ANALYST [facility] ER PALLIATIVE MEDIC [place], [place] [address] (Wo rk) 07/22/2022 TH Visit (TeleHealth) Palliative Care Benoit Lei ENVIRONMENTAL QUALITY ANALYST [facility] [place] [address] Criselda Zelaya [facility] [place] [address] 08/12/2022 Office Visit Cardiology Hari Summers MD [facility] [place] [address] [facility] [place] [address] documented as of this encounter Visit Diagnoses Not on filedocumented in this encounter Care Teams Hospital Mortician Relationship Specialty Start Date End Date Abdelrahman Gonzales APRN PCP - General 05/04/11 03/23/22 [address] [place] [address] documented as of this encounter
--- OUTSIDE RECORDS SUMMARY | 2022-07-12 08:58 | XMS_ITS | Encounter Summary ---
:1965 Author Organization [facility] [place] [address] Care Team Providers Name Role Phone Abdelrahman Gonzales APRN Primary Care Provider [phone] Reason for Visit Reason Onset Date Comments Prior Authorization 04/05/2012 Hep C Encounter Details Date Type Department Care Team Description 04/05/2012 Telephone [place]ology [place] [facility] Anabela Griffin, Prior Authorization [facility] Chrissy arellano RN (Hep C) [place] [address] Social History Tobacco Use Types Packs/Day [...] this encounter Miscellaneous Notes Telephone Encounter - Anabela Griffin CMA - 04/12/2012 4:28 PM EDT Hep C Treatment meds all approved- pt informed. Telephone Encounter - Anabela Griffin CMA - 04/10/2012 2:36 PM EDT Baseline: [id number] Faxed out PA for triple [facility] to [facility]-waiting on response. Telephone Encounter - Anabela Griffin CMA - 04/05/2012 8:57 AM EDT Spoke with pt about blood work that he needs done before I can send out PA form for Hep C Treatment-pt understands and will get it done today at [facility]- results will be faxed to us. documented in this encounter Plan of Treatment Upcoming Encounters Date Type Specialty Care Team Description 07/14/2022 TH Visit (TeleHealth) Palliative Care Kian Zelaya [facility] ER PALLIATIVE MEDIC [place], [place] [address] (Wo rk) 07/22/2022 TH Visit (TeleHealth) Palliative Care Benoit Lei, [facility] [place] [address] Criselda Zelaya FOOT ORTHOPEDIST [facility] [place] [address] 08/12/2022 Office Visit Cardiology Hari Summers MD [facility] [place] [address] Kit Bonilla MD [facility] [place] [address] documented as of this encounter Visit Diagnoses Not on filedocumented in this encounter Care Teams Equipment Processer Storage Relationship Specialty Start Date End Date Abdelrahman Gonzales APRN PCP - General 05/04/11 03/23/22 [address] [place] [address] documented as of this encounter
--- OUTSIDE RECORDS SUMMARY | 2022-07-12 08:58 | XMS_ITS | Encounter Summary ---
:1965 Author Organization [facility] [place] [address] Care Team Providers Name Role Phone Abdelrahman Gonzales APRN Primary Care Provider [phone] Reason for Visit Reason Comments Follow-up Encounter Details Date Type Department Care Team Description 05/12/2012 Follow-Up Gastroenterology [place] [facility] Caroline Casiano Hepatitis c, chronic [facility] Chrissy Leblanc APRN (Primary Dx) [place] [address] [facility] [phone] GASTROENTEROLOGY DEPT [place], [place] [address] Social History Tobacco Use Types [...] Sign Reading Time Taken Comments Blood Pressure 151/89 05/12/2012 11:14 AM EDT Pulse 72 05/12/2012 11:14 AM EDT Temperature - - Respiratory Rate - - Oxygen Saturation - - Inhaled Oxygen Concentration - - Weight 91.2 kg (201 lb) 05/12/2012 11:14 AM EDT Height 180.3 cm (5' 11) 05/12/2012 11:14 AM EDT Body Mass Index 28.03 05/12/2012 11:14 AM EDT documented in this encounter Progress Notes Maida Pineda, BEET END SUPERVISOR - 05/12/2012 11:30 AM EDT Subjective: Patient ID: Iban Palomares is a 46 y.o. male. HPI CURRENT PROBLEM LIST: 1.) Chronic Hepatitis C [...] side effects: baseline week 2 week 4 14,890 <25- Mr. Palomares is a 46 year old [...] week two the virus was undetected. He comes in today for his first follow up visit since starting the medications. He contacted his PCP who increased his ativan 2mg tid and since starting this dose he has noticed that he is much more calm, less angry. He is also happy that this helps him sleep, which was becoming a p roblem and contributed to his irritability. He is struggling with the early am fat requirements, he denies missed doses. Review of Systems Constitutional: Positive for fatigue. Negative for fever and chills. HENT: Negative for nosebleeds. Respiratory: Negative for cough and shortness of breath. Cardiovascular: Negative for chest pain. Gastrointestinal: Negative for nausea, vomiting and diarrhea. Musculoskeletal: Negative for arthralgias. Skin: Negative for rash. Psychiatric/Behavioral: Negative for suicidal ideas [...] time. Skin: Skin is warm and dry. Psychiatric: He has a normal mood and affect. His behavior is normal. Assessment and Plan: 1. Hepatitis C, now with a rapid response to treatment with an undetected viral load at week 2, he would require 24 weeks of treatment if this response continues. 2. Anxiety currently well controlled, he denies SI or HI, is agreeable to continue treatment and will listen to further instructions when given about dosing of medications etc. he will follow up in five weeks, given his lack of anemia at this point will have him get labs every other week. documented in this encounter Plan of Treatment Upcoming Encounters Date Type Specialty Care Team Description 07/14/2022 TH Visit (TeleHealth) Palliative Care Kian Zelaya APRN [facility] ER PALLIATIVE MEDIC [place], [place] [address] (Wo rk) 07/22/2022 TH Visit (TeleHealth) Palliative Care Benoit Lei BEET END SUPERVISOR [facility] [place] [address] Criselda Zelaya BEET END SUPERVISOR [facility] [place] [address] 08/12/2022 Office Visit Cardiology Hari Summers MD [facility] [place] [address] Kit Bonilla MD [facility] [place] [address] documented as of this encounter Visit Diagnoses Diagnosis Hepatitis C, chronic - Primary Chronic hepatitis C without mention of h epatic coma documented in this encounter Care Teams Shadowgraph Scale Operator Relationship Specialty Start Date End Date Abdelrahman Gonzales APRN PCP - General 05/04/11 03/23/22 [address] [place] [address] documented as of this encounter
--- OUTSIDE RECORDS SUMMARY | 2022-07-12 08:58 | XMS_ITS | Encounter Summary ---
:1965 Author Organization [facility] [place] [address] Care Team Providers Name Role Phone Christian Juniorcarlosgracie Rogers APRN Primary Care Provider [phone] Encounter Details Date Type Department Care Team Description 11/20/2012 Orders Only Neurosurgery at [facility] Rolando Nelson MD [facility] Unit D [facility] [place] [address] NEUROSURGERY [phone] [place], [place] [address] (Wo rk) Social History Tobacco [...] TH Visit (TeleHealth) Palliative Care Kian Zelaya MATCHBOOK MAKER [facility] ER PALLIATIVE MEDIC [place], [place] [address] (Wo rk) 07/22/2022 TH Visit (TeleHealth) Palliative Care Benoit Lei [facility] [place] [address] Criselda Zelaya MATCHBOOK MAKER [facility] [place] [address] 08/12/2022 Office Visit Cardiology Hari Summers MD [facility] [place] [address] Kit Bonilla MD [facility] [place] [address] documented as of this encounter Procedures Procedure Name Priority Date/Time Associated Diagnosis Comme nts FILM LIBRARY Routine 11/20/2012 1:25 PM Results f or this STORAGE ONLY MR EST procedure ar e in SPINE the results section. documented in this encounter Results Film Library- Storage only MR Spine (11/20/2012 1:25 PM EST) Specimen (Source) Anatomical Collection Method Collection Time Re ceived Time Location / / Volume Laterality 11/20/2012 1:25 PM EST Narrative RAD - 06/12/2014 11:01 PM EDT This is a non-reportable exam. Procedure Note Kit Felix - 06/12/2014Formatti ng of this note might be different from the original. This is a non-reportable exam. Rolando Nelson MD G FILM LIBRARY ORDERABLES Performing Organization Address City/State/ZIP Code Phon e Number [facility] RAD [address] [place] [address] documented in this encounter Visit Diagnoses Not on filedocumented in this encounter Care Teams Slot Floor Attendant Relationship Specialty Start Date End Date Abdelrahman Gonzales APRN PCP - General 05/04/11 03/23/22 [address] [place] [address] documented as of this encounter
--- OUTSIDE RECORDS SUMMARY | 2022-07-12 08:58 | XMS_ITS | Encounter Summary ---
:1965 Author Organization [facility] [place] [address] Care Team Providers Name Role Phone Abdelrahman Gonzales APRN Primary Care Provider [phone] Encounter Details Date Type Department Care Team Description 12/15/2011 Hospital Encounter MRI at [facility], [place] [address] Social History Tobacco Use Types Packs/Day [...] Sig Dispensed Refills Start Date End Date MULTIVITAMIN ORAL Take 1 tablet by 0 mouth daily. albuterol (PROVENTIL Inhale 2 puffs into 0 HFA;VENTOLIN HFA) 90 the lungs every 4 mcg/Actuation inhaler hours as needed. Use with spacer thiamine (Vitamin B1) 50 Take 50 mg by mouth 0 04/21/2022 mg Tablet daily. fentaNYL (DURAGESIC) 75 Place 1 patch onto 0 03/29/2012 mcg/hr the skin every 72 hours. THIAMINE HCL (VITAMIN B-1 Take 100 mg by 0 05/12/2012 ORAL) mouth. VITAMIN B COMPLEX (VITAMIN Take by mouth 0 12/31/2011 B-100 BALANCED ORAL) daily. lamoTRIgine (LAMICTAL) 100 Take 200 mg by 0 04/21/2022 mg tablet mouth 2 times daily. loratadine (CLARITIN) 10 Take 10 mg by mouth 0 12/27/2012 mg tablet daily. folic acid (FOLVITE) 1 mg Take 1 mg by mouth 0 08/30/2012 tablet daily. fentaNYL (DURAGESIC) 25 Place 1 patch onto 0 03/29/2012 mcg/hr patch the skin every 72 hours. clonAZEpam (KLONOPIN) 1 mg Take 1 mg by mouth 0 03/29/2012 tablet daily as needed. fish oil-omega-3 fatty Take 2 g by mouth 0 04/21/2022 acids 1,000 mg Capsule daily. TIOTROPIUM BROMIDE Inhale into the 0 0 04/21/2022 (SPIRIVA WITH HANDIHALER lungs daily. INHL) methadone (DOLOPHINE) 10 Take 10 mg by mouth 0 08/30/2012 mg tablet 4 times daily. acetaminophen (TYLENOL) Take 2 tablets by 30 tablet 0 06/1706/04/2022 325 mg tablet mouth every 4 hours as needed for Pain. lithium 300 mg tablet Take 300 mg by 0 12/31/2011 mouth 2 times daily. atenolol (TENORMIN) 50 mg Take 100 mg by 0 12/27/2012 tablet mouth daily. fluticasone-salmeterol Inhale 1 puff into 0 03/09/2012 (ADVAIR DISKUS) 250-50 the lungs every 12 mcg/dose diskus inhaler hours. documented as of this encounter Miscellaneous Notes Miscellaneous - Provider, Scanning - 12/21/2011 2:12 PM EST documented in this encounter Plan of Treatment Upcoming Encounters Date Type Specialty Care Team Description 07/14/2022 TH Visit (TeleHealth) Palliative Care Kian Zelaya HAND I BLOCKER [facility] ER PALLIATIVE MEDIC [place], [place] [address] (Wo rk) 07/22/2022 TH Visit (TeleHealth) Palliative Care Benoit Lei [facility] [place] [address] Criselda Zelaya HAND I BLOCKER [facility] [place] [address] 08/12/2022 Office Visit Cardiology Hari Summers MD [place] [address] Kit Bonilla MD [facility] [place] [address] documented as of this encounter Procedures Procedure Name Priority Date/Time Associated Diagnosis Comme nts MRI LUMBAR SPINE Routine 12/15/2011 3:57 PM Backache, Resul ts for this WITH/WO CONTRAST EST unspecified procedure a re in the results section. documented in this encounter Results MRI LUMBAR SPINE WITH/WO CONTRAST (12/15/2011 3:57 PM EST) Anatomical Region Laterality Modality L-spine Magnetic Resonance Specimen (Source) Anatomical Collection Method Collection Time Re ceived Time Location / / Volume Laterality 12/15/2011 3:57 PM EST Impressions 12/16/2011 11:07 AM EST IMPRESSION: Lumbar spine degenerative changes as ab ove. Narrative 12/16/2011 11:07 AM EST MRI OF THE LUMBAR SPINE WITH AND WITHOUT CONTRAST: HISTORY: ??Increasing right leg pain. ?? TECHNIQUE: ??MR of the lumbar spine perf ormed prior to and following intravenous administration of 19 mL of Magnevist. ?? CONTRAST: ??19 mL of Magnevist. ?? FINDINGS: ??Overall alignment of the lum bar spine is essentially normal. There are endplate reactive changes at L4-L5. No aggressive marrow lesions are present. The normal-appearing conus term inates at the upper L2 level. Visualized retroperitoneum is unremarkab le. ?? FINDINGS AT SPECIFIC LEVELS: ?? L1-L2: ??No central canal or neural fora theresa narrowing. ?? L2-L3: ??No central canal or neural fora theresa narrowing. ?? L3-L4: ??Mild disc bulging is present wi thout central canal narrowing. There is mild facet arthropathy. No neural forami nal narrowing is present. ?? L4-L5: ??Disc bulge and facet arthropath y are present. These combine to produce mild right and left neural foraminal gt rowing. ??There is mild enhancement present in the region of the left latera l recess in the region of the previously identified disc extrusion. ?? L5-S1: ??Disc bulge, facet arthropathy, and endplate proliferation produce bilateral mild neural foraminal narrowin g. No abnormal contrast enhancement is present. ?? Procedure Note Darwin Braden MD - 12/16/2011Format ting of this note might be different from the original. MRI OF THE LUMBAR SPINE WITH AND WITHOUT CONTRAST: HISTORY: Increasing right leg pain. TECHNIQUE: MR of the lumbar spine perfor med prior to and following intravenous administration of 19 mL of Magnevist. CONTRAST: 19 mL of Magnevist. FINDINGS: Overall alignment of the lumba r spine is essentially normal. There are endplate reactive changes at L4-L5. No aggressive marrow lesions are present. The normal-appearing conus term inates at the upper L2 level. Visualized retroperitoneum is unremarkab le. FINDINGS AT SPECIFIC LEVELS: L1-L2: No central canal or neural forami nal narrowing. L2-L3: No central canal or neural forami nal narrowing. L3-L4: Mild disc bulging is present with out central canal narrowing. There is mild facet arthropathy. No neural forami nal narrowing is present. L4-L5: Disc bulge and facet arthropathy are present. These combine to produce mild right and left neural foraminal gt rowing. There is mild enhancement present in the region of the left latera l recess in the region of the previously identified disc extrusion. L5-S1: Disc bulge, facet arthropathy, an d endplate proliferation produce bilateral mild neural foraminal narrowin g. No abnormal contrast enhancement is present. IMPRESSION IMPRESSION: Lumbar spine degenerative changes as ab ove. Rolando Nelson MD IMG MRI ORDERABLES documented in this encounter Visit Diagnoses Diagnosis Back pain Backache, unspecified documented in this encounter Care Teams Accounts Receivable Supervisor Relationship Specialty Start Date End Date Abdelrahman Gonzales APRN PCP - General 05/04/11 03/23/22 [address] [place] [address] documented as of this encounter
--- OUTSIDE RECORDS SUMMARY | 2022-07-12 08:58 | XMS_ITS | Encounter Summary ---
:1965 Author Organization [facility] [place] [address] Care Team Providers Name Role Phone Abdelrahman Gonzales APRN Primary Care Provider [phone] Encounter Details Date Type Department Care Team Description 05/04/2012 Abstract Gastroenterology at [facility] Anabela Griffin, [place] [address] Social History Tobacco Use Types Packs/Day [...] [facility]IC [place], [place] [address] (Wo rk) 07/22/2022 TH Visit (TeleHealth) Palliative Care Benoit Lei APRN [facility] [place] [address] Criselda Zelaya MID LEVEL PROJECT MANAGER [facility] [place] [address] 08/12/2022 Office Visit Cardiology Hari Summers MD [facility] [place] [address] Kit Bonilla MD [facility] [place] [address] documented as of this encounter Visit Diagnoses Not on filedocumented in this encounter Care Teams Mechanical Maintenance Relationship Specialty Start Date End Date Abdelrahman Gonzales APRN PCP - General 05/04/11 03/23/22 [address] [place] [address] documented as of this encounter
--- OUTSIDE RECORDS SUMMARY | 2022-07-12 08:58 | XMS_ITS | Encounter Summary ---
:1965 Author Organization [facility] [place] [address] Care Team Providers Name Role Phone Abdelrahman Gonzales APRN Primary Care Provider [phone] Reason for Visit Reason Comments Follow-up Encounter Details Date Type Department Care Team Description 08/30/2012 Follow-Up Gastroenterology at [facility] Maida Pinead, Chronic hepatitis C (Primary Dx); [facility] Chrissy arellano APRN [place], [place] [address] [place] [address] [facility] GASTROENTEROLOGY DEPT. [place], [place] [address] Social History Tobacco Use Types [...] Sign Reading Time Taken Comments Blood Pressure 128/91 08/30/2012 1:14 PM EST Pulse 76 08/30/2012 1:14 PM EST Temperature - - Respiratory Rate 20 08/30/2012 1:14 PM EST Oxygen Saturation - - Inhaled Oxygen Concentration - - Weight 84.4 kg (186 lb) 08/30/2012 1:14 PM EST Height 182.9 cm (6') 08/30/2012 1:14 PM EST Body Mass Index 25.23 08/30/2012 1:14 PM EST documented in this encounter Patient Instructions Patient InstructionsRaMaida jane APRN - 08/30/2012 1:48 PM EST Labs today and again at the end of treatment, 1,3 and 6 months post treatment Last interferon dose will September 27 Last ribavirin dose will be October 03 documented in this encounter Progress Notes Maida Pineda APRN - 08/30/2012 1:37 PM EST Subjective: Patient ID: Iban Palomares is [...] week 2 week 4 Week 8 Week 11 14,890 <25- <25- <43- <43- Mr. Palomares is a 46 year [...] is doing fine, no SI or HI. Iban returns today and is doing ok. He is irritable after his injection. He is happy that he was able to restart the klonipin and fentanyl patch as he reports that these meds better control his pain and anxiety. He has four weeks remaining of treatment. Review of Systems Constitutional: Positive for fatigue. [...] time. Skin: Skin is warm and dry. Rash: resolved. Psychiatric: He has a normal mood and affect. His behavior is normal. Assessment and Plan: 1. Hepatitis C, now with a rapid response to treatment with an undetected viral load at week 2. He will continue on his current meds for a total of 24 weeks. He will get labs today and repeat at the end of treatment (in 4 weeks), then 1 month, 3 months and 6 months post treatment. I will follow up with him in the office in seven months. If his viral load remains undetected at the 6 month post treatment time frame then that will be considered a cure. He was cautioned that it can take 2-3 months to make a full recovery back to his baseline after stopping these medications. 2. Anxiety has switched back to klonipin from ativan and having some anxiety but he is following up with Dr. Gonzales. 3. Skin rash, resolved with hydrocortisone. I would like to see Iban haynes in seven months for follow up. documented in this encounter Plan of Treatment Upcoming Encounters Date Type Specialty Care Team Description 07/14/2022 Visit (TeleHealth) Palliative Care Kian Zelaya APRN [facility] PALLIATIVE MEDIC [place], [place] [address] (Wo rk) 07/22/2022 Visit (TeleHealth) Palliative Care Benoit Lei APRN [facility] [place] [address] Criselda Zelaya APRN [facility] [place] [address] 08/12/2022 Office Visit Cardiology Hari Summers MD [facility] [place] [address] Kit Bonilla MD [facility] [place] [address] documented as of this encounter Procedures Procedure Name Priority Date/Time Associated Diagnosis Comme nts HCV QUANT Routine 08/30/2012 2:03 PM Hepatitis c, chronic R esults for this EST procedure are i n the results section. DIFFERENTIAL, Routine 08/30/2012 2:03 PM Results for this AUTOMATED EST procedure are i n the results section. HEPATITIS C RNA, Routine 08/30/2012 2:03 PM Hepatitis c, chron ic QUANTITATIVE, PCR EST CBC (WITH DIFF) Routine 08/30/2012 2:03 PM Hepatitis c, chroni c Results for this EST procedure are i n the results section. HEPATIC FUNCTION Routine 08/30/2012 2:03 PM Hepatitis c, chron ic Results for this PANEL EST procedure are i n the results section. documented in this encounter Results (ABNORMAL) DIFFERENTIAL, AUTOMATED (08/30/2012 2:03 PM EST) [employer] gist Method Time Signature Neutrophils % 48.6 34.0 - CERNER 71.0 % MILLENNIUM Neutr Abs (ANC) 2.66 1.50 - CERNER 6.30 MILLENNIUM x10(3)/mc L Lymphocytes % 37.6 19.0 - CERNER 53.0 % MILLENNIUM Lymphocytes Abs 2.1 1.0 - 3.6 CERNER x10(3)/mc MILLENNIUM L Monocytes % 13.1 (H) 4.0 - CERNER 13.0 % MILLENNIUM Monocyte Abs 0.7 0.2 - 1.0 CERNER x10(3)/mc MILLENNIUM L Eosinophils % 0.5 0.0 - 7.0 CERNER % MILLENNIUM Eosinophils Abs 0.0 0.0 - 0.5 CERNER x10(3)/mc MILLENNIUM L Basophils % 0.2 0.0 - 2.0 CERNER % MILLENNIUM Basophils Abs 0.0 0.0 - 0.2 CERNER x10(3)/mc MILLENNIUM L Immature Gran % 0.00 0.00 - CERNER 0.66 % MILLENNIUM Comment: Immature granulocytes(IG's)percentage an d absolute count will include metamyelocytes, myelocytes, and promyelo cytes. Blood smears from CBCs yielding IG's will be scanned manually for concor dance. If this scan disagrees with the automated IG or if promyelocytes are not ed, a manual differential will be performed. Cathy Gran Abs 0.00 0.00 - 0.05 x10(3)/mcL CER NER MILLENNIUM Specimen Anatomical Collection Method Collection Time Receive d Time (Source) Location / / Volume Laterality Blood specimen 08/30/2012 2:03 PM 012 2:06 (specimen) EST PM EST Yusuf Longoria MD HEMATOLOGY ORDERABLES Performing Organization Address City/State/[place] [address] CERNER MILLENNIUM HCV QUANT (08/30/2012 2:03 PM EST) Component Value Ref Test Analysis Performed At [facility] Method Time Signature HCV Viral <43 IU/mL CERNER Load MILLENNIUM HCV Viral Result: < 43 (Target Not Detected) CERNER Load MILLENNIUM Indication for Study: Hepatitis C Infection Analysis: A quantitiative real time reverse transcriptase PC R assay was performed on extracted viral RNA for the purpose of quantifi cation. Sample: plasma (1 mL minimum volume) Method: Eva Emmie TaqMAN 48 HCV Linear Range: 43IU/mL - 69,000,000IU/mL (95% CI) Interpretation: The result of this analysis is w ithin the limits of detection of the assay. Note: This assay is being pe rformed in the [facility] Molecular Pathology Laboratory. Tunde Lester, Ph.D. Director, Molecular Pathology Comment: [VERIFIED DATE]09.01.12 Verified By:Pamela Perdomo (Electronic Signature) Specimen Anatomical Collection Method Collection Time Receive d Time (Source) Location / / Volume Laterality Blood specimen 08/30/2012 2:03 PM 012 7:38 (specimen) EST AM EST Resulting Agency Comment Spec In Lab Yusuf Longoria MD HEMATOLOGY ORDERABLES Performing Organization Address City/[facility]/ZIP Code Phon e Number [address] CERNER MILLENNIUM Hepatic Function Panel (08/30/2012 2:03 PM EST) P athologist Signature Total Protein 7.8 6.4 - 8.3 CERNER gm/dL MILLENNIUM Albumin 4.3 3.2 - 5.2 CERNER gm/dL MILLENNIUM AST 21 0 - 39 CERNER unit/L MILLENNIUM ALT 15 0 - 55 CERNER unit/L MILLENNIUM Alk Phos 86 40 - 120 CERNER unit/L MILLENNIUM Total 0.6 0.2 - 1.3 CERNER Bilirubin mg/dL MILLENNIUM Bili, Direct 0.1 0.0 - 0.3 CERNER mg/dL MILLENNIUM Specimen Anatomical Collection Method Collection Time Receive d Time (Source) Location / / Volume Laterality Blood specimen 08/30/2012 2:03 PM 012 2:06 (specimen) EST PM EST Resulting Agency Comment Spec In Lab Yusuf Longoria MD CHEMISTRY ORDERABLES Performing Organization Address City/[facility] Phon e Number [address] CERNER MILLENNIUM (ABNORMAL) CBC (with Diff) (08/30/2012 2:03 PM EST) P athologist Signature WBC 5.5 4.0 - 10.0 CERNER x10(3)/mcL MILLENNIUM RBC 3.94 (L) 4.63 - CERNER 6.08 MILLENNIUM x10(6)/mcL Hemoglobin 12.1 (L) 13.7 - CERNER 17.5 gm/dL MILLENNIUM Hematocrit 36.0 (L) 40.0 - CERNER 51.0 % MILLENNIUM MCV 91.4 79.0 - CERNER 92.0 fL MILLENNIUM MCH 30.7 25.6 - CERNER 32.2 pg MILLENNIUM MCHC 33.6 32.0 - CERNER 36.5 gm/dL MILLENNIUM Platelets 236 145 - 370 CERNER x10(3)/mcL MILLENNIUM RDWSD 47.9 (H) 35.0 - CERNER 46.0 fL MILLENNIUM RDWCV 14.5 (H) 10.9 - CERNER 14.4 % MILLENNIUM MPV 10.3 9.0 - 12.0 [facility] fL [facility] Specimen Anatomical Collection Method Collection Time Receive d Time (Source) Location / / Volume Laterality Blood specimen 08/30/2012 2:03 PM 012 2:06 (specimen) EST PM EST Resulting Agency Comment Spec In Lab Yusuf Longoria MD HEMATOLOGY ORDERABLES Performing Organization Address City/State/ZIP [place] [address] [facility] documented in this encounter Visit Diagnoses Diagnosis Chronic hepatitis C - Primary Chronic hepatitis C without mention of h epatic coma Hepatitis C, chronic Chronic hepatitis C without mention of h epatic coma documented in this encounter Care Teams Finisher Machine Relationship Specialty Start Date End Date Abdelrahman Gonzales APRN PCP - General 05/04/11 03/23/22 [address] [place] [address] documented as of this encounter
--- OUTSIDE RECORDS SUMMARY | 2022-07-12 08:58 | XMS_ITS | Encounter Summary ---
:1965 Author Organization [facility] [place] [address] Care Team Providers Name Role Phone Ting Gonzales APRN Primary Care Provider [phone] Encounter Details Date Type Department Care Team Description 02/01/2013 Hospital Encounter Same Day Admit Andi Donahue Hitchcock MD [facility] [place] [address] NEUROSURGERY [phone] [place], [place] [address] (Wo rk) Social History Tobacco [...] Sign Reading Time Taken Comments Blood Pressure 144/77 02/01/2013 1:15 PM EDT Pulse 50 02/01/2013 1:15 PM EDT Temperature 36.4 ??C (97.5 ??F) 02/01/2013 12:35 PM EDT Respiratory Rate 16 02/01/2013 1:15 PM EDT Oxygen Saturation 100% 02/01/2013 1:15 PM EDT Inhaled Oxygen Concentration - - Weight - - Height - - Body Mass Index - - documented in this encounter Discharge Instructions Discharge InstructionsInes Rosas RN - 02/01/2013 12:52 PM EDT POST ANESTHESIA INSTRUCTIONS Go home, rest, use caution on stairs. Change positions slowly. Do not smoke if you are alone. Diet light to regular as tolerated today. If nausea occurs start with clear liquids and progress slowly. No driving, operating machinery, alcoholic beverages and no important decisions for 24 hours. Monitor IV site for signs and symptoms of infection: increasing redness, swelling, foul drainage, ifoccurs contact M.D. Patients who have had endotrachial tubes (this tube, used by anesthesia department, is passed down your throat after you are asleep, to ensure safe air passage during your operation). A sore throat is normal due to the tube. Cold liquids or soothing lozenges will help ease the discomfort. The generalized muscle aches are due to the medication given to you just before the tube is inserted. As the medication wears off, you may develop muscle soreness, which usually goes away in 12-24 hours. Patient Temi Fajardo - 02/01/2013 12:31 PM EDT Discharge Instructions for Spinal Surgery CALL YOUR PHYSICIAN IF: You have a fever greater than 101 degrees Farenheit within one month of your surgery. You have worsening back/neck pain, not controlled with your pain medication. You begin having new trouble moving your arms or legs. You develop pain, burning, urgency/frequency with urination. You develop redness, swelling, or milky or watery drainage from your wound. You have increasing trouble swallowing or breathing after anterior neck surgery. Prescriptions*: Narcotic pain medications, such as Percocet, Vicodin, oxycodone or Dilaudid have been prescribed foryour pain. DO NOT use alcohol, drive, or operate heavy or complex machinery while taking these medications. Narcotic pain medications may cause constipation. Stool softeners, such as Colace; mild laxatives, such as Milk of Magnesia, Sennakot, or Ducolax tabs; or enemas may be used if needed and are xorj-pku-tdwtmai (OTC) medications available at most [facility]. Prunes or prune juice, taken daily, can also be helpful for constipation treatment or pre vention and are available at most [employer] Driving Restrictions*: - [] No driving until your follow-up with Neurosurgery. - [] No driving for the first two weeks after surgery. Activities: Discuss return to work or school with your surgeon. No heavy lifting. You may lift what is comfortable to lift with one arm. Nothing greater than 3-5 pounds until re-evaluated by your physician. Avoid pushing and/or pulling objects. No washing concepcion, windows, or floors, and no vacuuming or lifting heavy laundry or grocery bags. No shoveling, mowing lawns, climbing onto roofs or up ladders and no painting. Avoid prolonged periods of straight-back sitting (e.g., no more than 20 minutes at a time), withoutchanging your position. No bending, twisting, or lifting. It is better to bend at the knees. You will be advised at your follow-up appointment when you may resume these activities. Diet: Eat a well-balanced diet. Fresh fruits, vegetables and fiber-containing foods are recommended. Thiswill assist in wound healing. Please stay well-hydrated and drink a lot of liquids, especially if you are taking narcotic pain medication. This will help with constipation. Recommendations: Take it easy for two weeks. Remember, If it hurts, don't do it. Take several slow, short walks each day for the first two weeks, and gradually increase your distance. We recommend at least 4 times a day. You can go up and down stairs, but take your time and make sure your feet are securely placed on each step. You can resume sexual activity over the next several weeks. You should be positioned on your back or side. Ankle pump exercises (like pressing and releasing the gas pedal) should be done several times each day until you are back to your normal activities. Wound Care: - You may remove the sterile dressing 2 days after surgery. After 4 days, you can shower per usual routine and wash the incision area gently. Pat incision dry with a clean, dry towel. Do not submerge the wound under water (avoid spas, pools and bathtubs) until it is fully healed. Do not use creams, oils, or ointments on the wound. Keep the wound open to air if it is not draining. See follow-up appointments below for removal of sutures/reba. Comfort: Some incision soreness can be expected. Take your pain medication as needed and prescribed. Taper use of pain medication as pain lessens. After neck surgery, your throat may be a little sore for the first 2-3 days. This is normal. You may have some voice hoarseness after neck surgery. This should improve over several days. Sevier J Collar Instructions: You are being sent home with a hard cervical neck collar. It needs to be worn at all times until discussed with your Neurosurgeon at your follow-up appointment. Shower as usual, with collar on. Remove the collar as instructed by your nurse. After shower remove residual soap from neck and pat incision dry with clean dry towel. After shower apply dry, clean set of pads, as instructed (you will be sent home with an extra set). Do not use powder or lotion under the collar. Check skin daily for redness or irritation. Call doctor if this occurs. Wash pads with mild soap, rinse well, and air dry. TLSO Brace Instructions: You are being discharged in a hard TLSO Brace. It needs to be worn at all times when out of bed. Your Neurosurgeon will discuss how long you need to wear it at your follow-up appointment. Remove and apply the brace as instructed by the Therapist. Shower as usual, with the brace on. After showering, remove the brace as the Therapist directed and clean residual soap/water from yourbody and dry thoroughly with clean towel. Dry the brace thoroughly and re-apply the brace as directed by the Therapist. Check skin daily for redness or irritation. Call the doctor if this occurs. Follow-up Appointments: Future Appointments Date Time Provider Department Center 03/14/2013 12:20 PM Andi Nelson MD [facility] 03/30/2013 1:00 PM Maida Pineda APRN [facility] # Please follow-up in Neurosurgery Clinic with: Dr. Nelson as scheduled above. Please call the Neurosurgery Clinic if you have not received a scheduled appointment in the mail. ( x )You have absorbable sutures. They will absorb on their own. Steri strips will flake-off gradually. Important Phone Numbers: Outpatient Nurse: Hanny Wade Inpatient Nurses: Neurosurgical Resident [employer] (after 5pm or before 8am): Neurosurgery offices (weekdays between 8am-5pm): Dr. Martin: Dr. Leiva: Dr. Vick: Dr. Nelson: Dr. Lemus: Cristela Antoine, Nurse Practitioner: Bishop Lewis, Physician Grades 9 12 Tutor: Rebekah Hernandez, Physician Grades 9 12 Tutor Letitia Dye, Nurse Practitioner: Your surgeon may not be [employer], especially during the night or on weekends, so be ready to tell about yourself and your surgery when you call. CC: TING GONZALES, UPHOLSTERER [employer]OUSINE AND HEARSE [phone] documented in this encounter Medications at Time of Discharge Medication Sig Dispensed Refills Start Date End Date MULTIVITAMIN ORAL Take 1 tablet by 0 mouth daily. albuterol (PROVENTIL Inhale 2 puffs into 0 HFA;VENTOLIN HFA) 90 the lungs every 4 mcg/Actuation inhaler hours as needed. Use with spacer OXYcodone (ROXICODONE) 5 Take 1 tablet by 30 tablet 0 02/0104/21/2022 mg immediate release mouth every 4 hours tablet as needed for Pain. methadone (DOLOPHINE) 10 Take 10 mg by mouth 0 04/21/2022 mg tablet every 12 hours. atenolol (TENORMIN) 100 mg Take 100 mg by 0 04/21/2022 tablet mouth daily. OXYcodone (OXY-IR) 30 mg Take 30 mg by mouth 0 04/21/2022 immediate release tablet 2 times daily. fluticasone-salmeterol Inhale 1 puff into 0 04/23/2022 (ADVAIR) 250-50 mcg/dose the lungs every 12 diskus inhaler hours. clonAZEpam (KLONOPIN) 1 mg Take 1 mg by mouth 0 04/21/2022 tablet 2 times daily as needed. thiamine (Vitamin B1) 50 Take 50 mg by mouth 0 04/21/2022 mg Tablet daily. lamoTRIgine (LAMICTAL) 100 Take 200 mg by 0 04/21/2022 mg tablet mouth 2 times daily. fish oil-omega-3 fatty Take 2 g by mouth 0 04/21/2022 acids 1,000 mg Capsule daily. TIOTROPIUM BROMIDE Inhale into the 0 0 04/21/2022 (SPIRIVA WITH HANDIHALER lungs daily. INHL) acetaminophen (TYLENOL) Take 2 tablets by 30 tablet 0 06/1706/04/2022 325 mg tablet mouth every 4 hours as needed for Pain. documented as of this encounter H&P Notes Gustavo Jose MD - 02/01/2013 9:59 AM EDT COMPLETE HISTORY AND PHYSICAL for ADMISSION, OBSERVATION OR PROCEDURE Date of : 1965 Age: 47 y.o. PCP: TING GONZALES APRN Portions taken from Dr. Nelson' office note dated 12/27/2012 HISTORY OF PRESENT ILLNESS: He is status post L4-5 discectomy done June 17, 2011 for left leg symptoms, he had several months of complete resolution in his symptoms before they started to return. Symptoms today: He has low-back pain daily, this radiates into both buttocks, the right lateral thigh, he has numbness in the top of his feet, the back of his calf, and both thighs in a circumferentialpattern, he has weakness in both of his legs, back pain worse than leg pain, rated at 8/10, this is worse with driving and sitting, feels better with pain medications and bio freeze, he's had no recenttreatment. PMHx: Patient Active Problem List Diagnoses Code ??? Lumbar disc herniation 722.10 ??? Hepatitis c, chronic 070.54 Past Medical History Diagnosis Date ??? Asthma ??? Bipolar 1 disorder ??? COPD (chronic obstructive pulmonary disease) ??? Herniated disc ??? HTN (hypertension) Past Surgical History Procedure Date ??? Laminotomy, lumbar disk, 1 intrsp 06/17/2011 LAMINOTOMY, DECOMPRESSION, FORAMINOTOMY, LUMBAR performed by ANDI NELSON at [facility] MAIN OR ??? Hernia repair ??? Hand surgery ??? Needle biopsy liver 12/22/2011 LIVER BIOPSY performed by RITA ORLANDO at [facility] ENDOSCOPY HOME MEDICATIONS: Prescriptions prior to admission Medication Sig Dispense Refill ??? methadone (DOLOPHINE) 10 mg tablet Take 10 mg by mouth every 12 hours. ??? atenolol (TENORMIN) 100 mg tablet Take 100 mg by mouth daily. ??? lamoTRIgine (LAMICTAL) 100 mg tablet Take 200 mg by mouth 2 times daily. ??? OXYcodone (OXY-IR) 30 mg immediate release tablet Take 30 mg by mouth 2 times daily. ??? fluticasone-salmeterol (ADVAIR) 250-50 mcg/dose diskus inhaler Inhale 1 puff into the lungs every 12 hours. ??? clonAZEpam (KLONOPIN) 1 mg tablet Take 2 mg by mouth 2 times daily as needed. ??? thiamine (VITAMIN B-1) 50 mg tablet Take 50 mg by mouth daily. ??? MULTIVITAMIN ORAL Take by mouth. ??? fish oil-omega-3 fatty acids (FISH OIL CONCENTRATE) 1,000 mg capsule Take 2 g by mouth daily. ??? TIOTROPIUM BROMIDE (SPIRIVA WITH HANDIHALER INHL) Inhale into the lungs daily. ??? acetaminophen (TYLENOL) 325 mg tablet Take 2 tablets by mouth every 4 hours as needed for Pain. 30 tablet ??? albuterol (PROVENTIL HFA;VENTOLIN HFA) 90 mcg/Actuation inhaler Inhale 2 puffs into the lungs every 4 hours as needed. Use with spacer ALLERGIES: No Known Allergies FAMILY HISTORY: Non contributory SOCIAL HISTORY: Alcohol: none h/o alcoholism Tobacco: smoked 1 packs per day(s) for 20 years REVIEW OF SYSTEMS: complete 10 system ROS performed with pertinent findings below. Pertinent items are noted in HPI. PHYSICAL EXAM: VITALS: Temperature Temp: 36.7 ??C (98.1 ??F) Heart Rate Heart Rate: 60 Blood Pressure BP: 141/81 mmHg Respiratory Rate Resp: 16 SpO2 SpO2: 100 % General: alert, appears stated age and cooperative Pulmonary: equal, clear breath sounds bilaterally Cardiovascular: Regular rate and rhythm or S1S2 present RLE: 4+/5 strength throughout with grimace during exam, SILT all dermatomes LLE: decreased sensation to light touch all dermatomes distal to the knee, 4/5 EHL/TA/KF/KE, foot WWP ASSESSMENT: 47yo gentlemen with recurrent L4-L5 left sided disk TREATMENT PLAN: To OR for L4-L5 left discectomy documented in this encounter Miscellaneous Notes Miscellaneous - Provider, Scanning - 02/01/2013 11:21 PM EDT Miscellaneous - Provider, Scanning - 02/01/2013 11:18 PM EDT Op Note - Andi Nelson MD - 02/01/2013 12:28 PM EDT Operative note on Iban Palomares. Date: 02/01/2013. Preoperative Diagnosis: Recurrent L4-5 herniated disk. Postoperative Diagnosis: Recurrent L4-5 herniated disk. Procedure: Redo diskectomy, L4-5, left side. Surgeons: Temi Finch M.D., Andi Nelson M.D. Attending: Andi Nelson M.D. Anesthesia: General endotracheal. Estimated Blood Loss: Minimal. Complications: None. Brief History: The patient is a 47-year-old male with a history of chronic low back pain. The patient had a previous L4-5 diskectomy but had ongoing left lower extremity pain. A repeat MRI was performed in October 2012 demonstrating a likely recurrence. The patient was counseled regarding the unlikely scenario of a repeat operation addressing his back pain but that it might improve leg pain. The patient opted for surgical treatment. Operative Report: The patient was intubated and placed on the operating table in a prone position on the Handy frame. The back was prepped and draped in the usual sterile fashion. The previous incision was reopened, and with C-arm navigation we were able to dock the tubular retractor against the L4-5 lamina over the previous laminotomy site. The internal dilators were removed, and a final 22-mm x 6-cm tube had been placed. Under the microscope, we inspected the area, and there was notable scar tissue. We were able to remove this from the surrounding bone. Using Kerrison rongeurs, we were able to extend the laminotomy slightly superiorly and laterally into the medial aspect of the fact to allow access into the spinal canal. Here we were able to identify the lateral edge of the nerve sac and the exiting L5 nerve root. Inspection in this region, however, failed to reveal a clear herniation. We were able to enter into the disk space and palpate under the thecal sac several millimeters cranially and caudally. Several small fragments of disk were removed but no large fragment. The disk space was cleaned free of any disk material immediately under the site of the presumed herniation. Another x-ray was taken to confirm the adequate level, and the proper level had been accessed. At the conclusion the nerve root and thecal sac did not feel to be under particularly significant tension. No evidence of CSF leak was seen. The area was liberally irrigated, and Depo-Medrol was applied over the nerve root. The wound was closed in a layered fashion and the patient transferred to the Recovery Room in stable condition. OR Attestation - Andi Nelson MD - 02/01/2013 12:28 PM EDT Attestation: Case Date: 02/01/2013 I was present and I participated during the entire procedure (does not need to include opening and closing). ANDI NELSON MD 02/01/2013 Miscellaneous - Provider, Scanning - 02/01/2013 12:04 PM EDT Miscellaneous - Provider, Scanning - 02/01/2013 12:04 PM EDT documented in this encounter Plan of Treatment Upcoming Encounters Date Type Specialty Care Team Description 07/14/2022 Visit (TeleHealth) Palliative Care Kian Zelaya APRN [facility] PALLIATIVE MEDIC [place] [address] (Wo rk) 07/22/2022 Visit (TeleHealth) Palliative Care Benoit Lei APRN [facility] [place] [address] Criselda Zelaya APRN [facility] [place] [address] 08/12/2022 Office Visit Cardiology Hari Summers MD [facility] [place] [address] Kit Bonilla MD [facility] [place] [place] [address] Pending Results Name Type Priority Associated Diagnoses Date/Ti me XR Fluoro OR c-arm Imaging Routine 3 12:27 PM EDT storage only Scheduled Orders Name Type Priority Associated Diagnoses Order S chedule XR Fluoro OR c-arm Imaging Routine Once PRN (for Radiant storage only use) for 1 Occu rrences starting 2012 until 02/01/2013 documented as of this encounter Procedures Procedure Name Priority Date/Time Associated Diagnosis Comme nts MODIFIER METRX SYS. 02/01/2013 10:29 AM RECURRENT L4-5 HNP EDT LAMINOTOMY 02/01/2013 10:29 AM RECURRENT L4-5 HNP W\DECOMPRESSION, ONE LVL, EDT LUMBAR ,RE-EXPL (INCLDNG PART. FACETECTOMY, FORAMINOTOMY &\OR DISCECTOMY) (WRVU 18.76) documented in this encounter Visit Diagnoses Not on filedocumented in this encounter Administered Medications Inactive Administered Medications - up to 3 most recent administrations Medication Order MAR Action Action Date Dose Rate Site acetaminophen (TYLENOL) tablet 650 Given 02/01/2013 1:41 PM EDT 650 mg mg 650 mg, Oral, EVERY 4 HOURS PRN, Starting on Deborah 02/01/13 at 1237, Until Deborah 02/01/13 at 1716, Pain, Maximum dose of acetaminophen is 4000 mg from all sources in 24 hours., Routine HYDROmorphone (DILAUDID) injection 0.2-0 .4 mg Given 02/01/2013 2:35 PM EDT 0.2 mg 0.2-0.4 mg, Intravenous, EVERY 5 MIN PRN, Starting on Deborah 02/01/13 at 1240, Until Deborah 02/01/13 at 1716, Pain, For moderate pain give: 0.2 mg every 5 minute prn For severe pain give: 0.4 mg every 5 minutes prn Maximum dose: 4 mg per hour Hold for respiratory rate less than 10 per minute., PACU Recovery, Routine Given 02/01/2013 2:28 PM EDT 0.2 mg Given 02/01/2013 2:10 PM EDT 0.2 mg methadone (DOLOPHINE) tablet 10 mg Given 02/01/2013 1:45 PM EDT 10 mg 10 mg, Oral, ONCE, 1 dose, On Deborah 02/01/13 at 1345, Routine OXYcodone (ROXICODONE) immediate release tablet Given 02/01/2013 2:12 PM EDT 5 mg 5 mg 5 mg, Oral, EVERY 4 HOURS PRN, Starting on Deborah 02/01/13 at 1230, Until Deborah 02/01/13 at 1716, Pain, mild to moderate pain, May give additional 5 mg in 30 minutes times 1 if pain not relieved. , Routine Given 02/01/2013 1:40 PM EDT 5 mg documented in this encounter Active and Recently Administered Medications Times are shown in EDT. Scheduled Medication Order 01/30/2013 01/31/2013 02/01/2013 ceFAZolin (ANCEF) 2g in dextrose 5% 50 mL (COMPLETED) 0945 (Due)1055 (Given - Provider: Kasi Velásquez MD)1129 (Given - Provider: Kasi Velásquez MD) 2 g, Intravenous, ONCE, 1 dose, On Deborah at 0945, To be administered upon arrival to the OR within one hour prior to incision., Day of Surgery (Day of Procedure), Indication for (Active or Suspected): Prophylaxis methadone (DOLOPHINE) tablet 10 mg (COMPLETED) 1345 (Given - Provider: Ashley Lucas RN) 10 mg, Oral, ONCE, 1 dose, On Deborah 02/01/13 at 1345, Routine Continuous Medication Order 01/30/2013 01/31/2013 02/01/2013 lactated ringers infusion 1,000 mL (CANCELED) 0945 (Due)1031 (New Bag - Provider: Kasi Velásquez MD)1037 (Anesthesia Volume Adjustment - Provider: Kasi Velásquez MD)1048 (Anesthesia Volume Adjustment - Provider: Kasi Velásquez MD) 1,000 mL, at 100 mL/hr, Intravenous, CON TINUOUS, Starting Deborah 02/01/13 at 0945, Until Deborah 02/01/13 at 1716, Day of Surgery (Day of Procedure) 1239 (Anesthesia Volume Adjustment - Provider: Kasi Velásquez MD) PRN Medication Order 01/30/2013 01/31/2013 02/01/2013 acetaminophen (TYLENOL) tablet 650 mg (CANCELED) 1341 (Given - Provider: Ashley Lucas RN) 650 mg, Oral, EVERY 4 HOURS PRN, Startin g Deborah 02/01/13 at 1237, Until Deborah 02/01/13 at 1716, Pain, Maximum dose of acetaminophen is 4000 mg from all sources in 24 hours., Routine BUpivacaine-epiNEPHrine 0.25 %-1:200,000 injection (CANCELED) 1110 (Given - Provider: Andi Nelson MD - Comment: BEGINNING OF PROCEDURE) ONCE PRN, Starting Deborah 02/01/13 at 1233, Until Deborah 02/01/13 at 1716, Intra- Operative (Intra-Procedure), Routine HYDROmorphone (DILAUDID) injection 0.2-0.4 mg (CANCELED) 1301 (Given - Provider: Ashley Lucas RN)1306 (Given - Provider: Ashley Lucas RN)1311 (Given - Provider: Ashley Lucas RN)1318 (Given - Provider: Ashley Lucas, ANA)1324 (Given - Provider: Ashley Lucas, ANA) 0.2-0.4 mg, Intravenous, EVERY 5 MIN PRN , Starting Deborah 02/01/13 at 1240, Until Deborah 13 at 1716, Pain, For moderate pain give: 0.2 mg every 5 minute prn For severe pain give: 0.4 mg every 5 minutes pr 1330 (Given - Provider: Ashley Luacs RN)1336 (Given - Provider: Ashley Lucas RN)1345 (Given - Provider: Ashley Lucas RN)1350 (Given - Provider: Ashley Lucas RN)1355 (Given - Provider: Ashley Lucas RN) n Maximum dose: 4 mg per hour Hold for r espiratory rate less than 10 per minute., PACU Recovery, Routine 1401 (Gi van - Provider: Ashley Lucas RN)1410 (Given - Provider: Ashley Lucas RN)1428 (Given - Provider: Ashley Lucas RN)1435 (Given - Provider: Ashley Lucas RN) methylPREDNISolone acetate (depo-MEDROL) injection (CANCELED) 1208 (Given - Provider: Andi Nelson MD) ONCE PRN, Starting Deborah 02/01/13 at 1208, Until Deborah 02/01/13 at 1716, Intra- Operative (Intra-Procedure), Routine OXYcodone (ROXICODONE) immediate release tablet 5 mg (CANCELED) 1340 (Given - Provider: Ashley Lucas RN)1412 (Given - Provider: Ashley Lucas RN) 5 mg, Oral, EVERY 4 HOURS PRN, Starting Deborah 02/01/13 at 1230, Until Deborah 02/01/13 at 1716, Pain, mild to moderate pain, May give additional 5 mg in 30 minutes times 1 if pain not relieved. , Routine documented in this encounter Care Teams Moulder Operator Relationship Specialty Start Date End Date Ting Gonzales APRN PCP - General 05/04/11 03/23/22 [address] [place] [address] documented as of this encounter
--- OUTSIDE RECORDS SUMMARY | 2022-07-12 08:58 | XMS_ITS | Encounter Summary ---
:1965 Author Organization [facility] [place] [address] Care Team Providers Name Role Phone Abdelrahman Gonzales APRN Primary Care Provider [phone] Reason for Visit Reason Comments Back Pain Bilateral Leg Pain Encounter Details Date Type Department Care Team Description 12/27/2012 [facility] Genny MCKEON (Primary Dx) [facility] [address] [place], [place] NEUROSURGERY [address] [place] [address] [phone] Social History Tobacco Use Types Packs/Day Years [...] Sign Reading Time Taken Comments Blood Pressure 142/91 12/27/2012 2:01 PM EST Pulse 78 12/27/2012 2:01 PM EST Temperature - - Respiratory Rate - - Oxygen Saturation 100% 12/27/2012 2:01 PM EST Inhaled Oxygen Concentration - - Weight 84.4 kg (186 lb) 12/27/2012 2:01 PM EST Height 182.9 cm (6') 12/27/2012 2:01 PM EST Body Mass Index 25.23 12/27/2012 2:01 PM EST documented in this encounter Progress Notes Radha Lozano, DIRECTOR OF BUSINESS OPERATIONS - 12/27/2012 2:29 PM EST Iban Palomares is a 47 y.o. male is seen today for back pain. History of present illness: He is status post L4-5 discectomy done [...] and bio freeze, he's had no recenttreatment. Review of systems is positive for night sweats, no other GI, , or constitutional symptoms. Social history: he is presently on security disability for alcoholism and manic depression, he smokes one pack a day for 20 years, is nondrinker, seen today in the company of her spouse. Observation: He is pleasant, has good eye contact, stated height of 6 foot, stated weight 186 pounds. He walks in the clinic with a normal gait. Can heel walk and toe walk. Has level shoulders, hips, knees. Has pain with palpation from approximately T9 to the sacrum. He flexes forward only a few degrees, extends only a few degrees, has increased back pain with all this including lateral rotation and twisting, on motor evaluation he has weakness in both feet including both EHL rated at 4/5, he has decreased strength secondary to pain on knee extension and flexion, hip flexors have normal strength. Has decreased sensation below both knees in a circumferential pattern in the lateral aspects of both thighs, reflexes are 2+ at knees 1+ and heels, straight leg raise, femoral tension stretch, and Karishma all cause low back pain with no radicular findings. No clonus, no Babinski, palpable pulses x2. Office note on Iban Palomares. I have just seen Mr. Palomares in followup. He is a 47-year-old male that I had operated on for a left-sided herniated disk. Unfortunately his past history is complicated with chronic low back pain for which he is taking methadone. He had recurrent bouts of pain for which he underwent a repeat MRI after the surgery which showed complete eradication of the disk. He has since had a worsening of his back pain and has had a new MRI showing a small but present re--herniated disk on the left side at L4-5. In talking with him, he complains predominantly of back pain and leg numbness bilaterally. I told him that these are all symptoms that are not necessarily improved by surgery especially contralateral leg numbness. However, he is fairly set on surgery as a fix. I honestly think that this is a very naive approach to the situation. I told him to think about his options and give us a call tomorrow. I would be really shocked if he did not want to proceed with surgery, and we can do this although I think for the symptoms he is complaining it will have a minimal benefit. We will wait and see how he would like to proceed, and he will contact us to make arrangements for conservative management versus surgery in the next day or so. documented in this encounter Plan of Treatment Upcoming Encounters Date Type Specialty Care Team Description 07/14/2022 TH Visit (TeleHealth) Palliative Care Kian Zelaya DIRECTOR OF BUSINESS OPERATIONS [facility] DR PALLIATIVE MEDIC [place], [place] [address] (Wo rk) 07/22/2022 TH Visit (TeleHealth) Palliative Care Benoit Lei [facility] [address] Criselda Zelaya [facility] [address] 08/12/2022 Office Visit Cardiology Hari Summers MD [facility] [place] [address] Kit Bonilla MD [facility] [place] [address] documented as of this encounter Visit Diagnoses Diagnosis Lumbar disc herniation - Primary Displacement of lumbar intervertebral di sc without myelopathy documented in this encounter Care Teams Bread Molder Relationship Specialty Start Date End Date Abdelrahman Gonzales APRN PCP - General 05/04/11 03/23/22 [address] [place] [address] documented as of this encounter
--- OUTSIDE RECORDS SUMMARY | 2022-07-12 08:58 | XMS_ITS | Encounter Summary ---
:1965 Author Organization [facility] [place] [address] Care Team Providers Name Role Phone Abdelrahman Gonzales APRN Primary Care Provider [phone] Encounter Details Date Type Department Care Team Description 06/28/2013 Telephone Gastroenterology at [facility] [place] Douglas, [place] [address] Social History Tobacco Use Types Packs/Day [...] Telephone Encounter - Alia Douglas, RN - 06/28/2013 2:55 PM EDT Call to patient per Kian Pineda NP. Patient is overdue for clinic follow up, and did not have 6 month Hep C VL drawn following completion of treatment. Detailed message left on his identified VM asking that he call back. documented in this encounter Plan of Treatment Upcoming Encounters Date Type Specialty Care Team Description 07/14/2022 TH Visit (TeleHealth) Palliative Care Kian Zelaya APRN [facility] ER PALLIATIVE MEDIC [place], [place] [address] (Wo rk) 07/22/2022 TH Visit (TeleHealth) Palliative Care Benoit Lei BOILER ROOM OPERATOR [facility] [place] [address] Criselda Zelaya BOILER ROOM OPERATOR [facility] [place] [address] 08/12/2022 Office Visit Cardiology Hari Summers MD [facility] [place] [address] Kit Bonilla MD [facility] [place] [address] documented as of this encounter Visit Diagnoses Not on filedocumented in this encounter Care Teams Button Sawyer Relationship Specialty Start Date End Date Abdelrahman Gonzales APRN PCP - General 05/04/11 03/23/22 [address] [place] [address] documented as of this encounter
--- OUTSIDE RECORDS SUMMARY | 2022-07-12 08:58 | XMS_ITS | Encounter Summary ---
:1965 Author Organization [facility] [place] [address] Care Team Providers Name Role Phone Christian Juniorcarlosgracie Rogers APRN Primary Care Provider [phone] Encounter Details Date Type Department Care Team Description 12/14/2011 Abstract [facility] at [facility] Rolando Nelson MD [facility] D [facility] [place] [address] NEUROSURGERY [phone] [place], [place] [address] (Wo rk) Social History Tobacco Use Types Packs/Day Years Used Date Current Every Day Smoker Cigarettes 0.8 28 Comments: 6 cigs daily Alcohol Use [...] TH Visit (TeleHealth) Palliative Care Kian Zelaya DEEP FRYER ASSEMBLER [facility] ER PALLIATIVE MEDIC [place], [place] [address] (Wo rk) 07/22/2022 TH Visit (TeleHealth) Palliative Care Benoit Lei [facility] [place] [address] Criselda Zelaya DEEP FRYER ASSEMBLER [facility] [place] [address] 08/12/2022 Office Visit Cardiology Hari Summers MD [facility] [place] [address] Kit Bonilla MD [facility] [place] [address] documented as of this encounter Visit Diagnoses Not on filedocumented in this encounter Care Teams Early Childhood Teacher Relationship Specialty Start Date End Date Abdelrahman Gonzales APRN PCP - General 05/04/11 03/23/22 [address] [place] [address] documented as of this encounter
--- OUTSIDE RECORDS SUMMARY | 2022-07-12 08:58 | XMS_ITS | Encounter Summary ---
:1965 Author Organization [facility] [place] [address] Care Team Providers Name Role Phone Abdelrahman Gonzales APRN Primary Care Provider [phone] Reason for Visit Reason Onset Date Comments Medication Refill 08/04/2012 Encounter Details Date Type Department Care Team Description 08/04/2012 Refill [place] [facility] [place]ida Pineda APRN [facility] Chrissy [facility] [place] [address] GASTROENTEROLOGY DEPT. [phone] [place], [place] [address] Social History Tobacco Use Types [...] [facility] ER PALLIATIVE MEDIC [place], [place] [address] (Wo rk) 07/22/2022 TH Visit (TeleHealth) Palliative Care Benoit Lei CYBER SECURITY ADMINISTRATOR [facility] [place] [address] Criselda Zelaya APRN [facility] [place] [address] 08/12/2022 Office Visit Cardiology Hari Summers MD [place] [address] Kit Bonilla MD [facility] [place] [address] documented as of this encounter Visit Diagnoses Not on filedocumented in this encounter Care Teams Cloth Baler Relationship Specialty Start Date End Date Abdelrahman Gonzales APRN PCP - General 05/04/11 03/23/22 [address] [place] [address] documented as of this encounter
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
--- OUTSIDE RECORDS SUMMARY | 2022-07-12 08:58 | XMS_ITS | Encounter Summary ---
:1965 Author Organization [facility] [place] [address] Care Team Providers Name Role Phone Abdelrahman Gonzales APRN Primary Care Provider [phone] Encounter Details Date Type Department Care Team Description 03/29/2012 Telephone [place]ology [place] [facility] [place] Maida Pineda APRN [facility] [place] [address] GASTROENTEROLOGY [phone] DEPT. [place], [place] [address] Social History Tobacco Use Types [...] Telephone Encounter - Xuan Reyes RN - 03/29/2012 11:06 AM EDT Patient reports that 2-3 weeks ago he and his local clinician made medication changes to prep for hcv therapy. He is now on ativan and oxycontin, although the latter is not agreeing with him so may be switched to morphine. Will process enrollment form for [facility] process. documented in this encounter Plan of Treatment Upcoming Encounters Date Type Specialty Care Team Description 07/14/2022 TH Visit (TeleHealth) Palliative Care Kian Zelaya ARRANGING FUNERAL DIRECTOR [facility] PALLIATIVE MEDIC [place], [place] [address] (Wo rk) 07/22/2022 TH Visit (TeleHealth) Palliative Care Benoit Lei ARRANGING FUNERAL DIRECTOR [facility] [place] [address] Criselda Zelaya ARRANGING FUNERAL DIRECTOR [facility] [place] [address] 08/12/2022 Office Visit Cardiology Hari Summers MD [facility] [place] [address] Kit Bonilla MD [facility] [place] [address] documented as of this encounter Visit Diagnoses Not on filedocumented in this encounter Care Teams Gas Appliance Mechanic Relationship Specialty Start Date End Date Abdelrahman Gonzales APRN PCP - General 05/04/11 03/23/22 [address] [place] [address] documented as of this encounter
--- OUTSIDE RECORDS SUMMARY | 2022-07-12 08:58 | XMS_ITS | Encounter Summary ---
:1965 Author Organization [facility] [place] [address] Care Team Providers Name Role Phone Abdelrahman Gonzales SREEDHAR Primary Care Provider [phone] Encounter Details Date Type Department Care Team Description 12/22/2011 Hospital Encounter G[place]ology [place] [facility] [place] Thomas Delarosa MD [facility] [place] [address] [facility] Zehra Yang MD [facility] [place] [address] [place] [address] Social History Tobacco Use Types Packs/Day [...] Sign Reading Time Taken Comments Blood Pressure 132/66 12/22/2011 12:20 PM EST Pulse 57 12/22/2011 12:20 PM EST Temperature 36.6 ??C (97.9 ??F) 12/22/2011 8:01 AM EST Respiratory Rate 16 12/22/2011 12:20 PM EST Oxygen Saturation 95% 12/22/2011 12:20 PM EST Inhaled Oxygen Concentration - - Weight - - Height - - Body Mass Index - - documented in this encounter Discharge Instructions Discharge InstructionsAlejandra Sanchez RN - 12/22/2011 9:40 AM EST You may have received medication before and/or during your procedure, which affects judgement and reaction time. Do not drive, operate machinery, drink alcoholic beverages, or make important decisions for 24 hours. Be careful on stairs, as you may be unsteady on your feet. You may eat a regular diet as tolerated. Do not smoke if you are alone. IV site -- slight redness, or tenderness is normal, you can use a warm compress. If tenderness and redness increases or foul drainage occurs, please contact your M. D. AttachmentsThe following attachments cannot be sent through Care Everywhere. PERCUTANEOUS LIVER BIOPSY: WHAT TO EXPECT AT HOME (TRINIDADIAN)documented in this encounter Medications at Time of [...] inhaler hours. documented as of this encounter H&P Notes Zehra Orlando MD - 12/22/2011 8:59 AM EST Gastroenterology & Hepatology Pre-Procedure History and Physical Procedure: liver biopsy Indication: hepatitis C History of Present Illness: See Maida Pineda's most recent note. PMH: Hepatitis C Chronic back pain Asthma Bipolar disorder Htn Medications: No current facility-administered medications on file prior to encounter. Current outpatient prescriptions ordered prior to encounter Medication Sig Dispense Refill ??? VITAMIN B COMPLEX (VITAMIN B-100 BALANCED ORAL) Take by mouth daily. ??? lamoTRIgine (LAMICTAL) 100 mg tablet Take 100 mg by mouth 2 times daily. ??? loratadine (CLARITIN) 10 mg tablet Take 10 mg by mouth daily. ??? MULTIVITAMIN ORAL Take by mouth. ??? folic acid (FOLVITE) 1 mg tablet Take 1 mg by mouth daily. ??? fentaNYL (DURAGESIC) 25 mcg/hr patch Place 1 patch onto the skin every 72 hours. ??? clonAZEpam (KLONOPIN) 1 mg tablet Take 1 mg by mouth daily as needed. ??? fish oil-omega-3 fatty acids (FISH OIL CONCENTRATE) 1,000 mg capsule Take 2 g by mouth daily. ??? TIOTROPIUM BROMIDE (SPIRIVA WITH HANDIHALER INHL) Inhale into the lungs daily. ??? methadone (DOLOPHINE) 10 mg tablet Take 10 mg by mouth 4 times daily. ??? acetaminophen (TYLENOL) 325 mg tablet Take 2 tablets by mouth every 4 hours as needed for Pain. 30 tablet ??? lithium 300 mg tablet Take 300 mg by mouth 2 times daily. ??? atenolol (TENORMIN) 50 mg tablet Take 100 mg by mouth daily. ??? albuterol (PROVENTIL HFA;VENTOLIN HFA) 90 mcg/Actuation inhaler Inhale 2 puffs into the lungs every 4 hours as needed. Use with spacer ??? fluticasone-salmeterol (ADVAIR DISKUS) 250-50 mcg/dose diskus inhaler Inhale 1 puff into the lungs every 12 hours. Allergies: No Known Allergies Exam: Patient Vitals in the past 24 hrs: BP Temp Temp src Pulse Resp SpO2 12/22/11 0801 126/93 mmHg 36.6 ??C (97.9 ??F) Oral 55 18 97 % Chest- clear Heart- RRR, nl s1, s2 Abdomen- normal bowel sounds, soft, non tender Assessment and Plan: Liver biopsy. Conscious sedation. Risks and benefits of the procedure were discussed with the patient. Consent has been signed. documented in this encounter Nursing Notes Alejandra Sanchez, RN - 12/22/2011 10:16 AM EST Stood at bedside to void. Band aid on right side dry and intact documented in this encounter Miscellaneous Notes Miscellaneous - Provider, Scanning - 12/23/2011 1:19 AM EST OR Attestation - Zehra Orlando MD - 12/22/2011 9:40 AM EST Attestation: Case Date: 12/22/2011 As the attending physician, I performed the entire procedure. ZEHRA ORLANDO MD 12/22/2011 Miscellaneous - Provider, Scanning - 12/22/2011 8:53 AM EST documented in this encounter Plan of Treatment Upcoming Encounters Date Type Specialty Care Team Description 07/14/2022 Visit (TeleHealth) Palliative Care Kian Zelaya, SREEDHAR [facility] PALLIATIVE MED[facility] [place] [address] (Wo rk) 07/22/2022 TH Visit (TeleHealth) Palliative Care Benoit Lei APRN [facility] [place] [address] Criselda Zelaya [employer] [facility] [place] [address] 08/12/2022 Office Visit Cardiology Hari Summers MD [facility] [place] [address] Kit Bonilla MD [facility] [place] [address] documented as of this encounter Procedures Procedure Name Priority Date/Time Associated Diagnosis Comme nts SURGICAL PATHOLOGY Routine 12/22/2011 12:15 PM Re sults for this REPORT EST procedure are i n the results section. SPECIMEN TO Routine 12/22/2011 9:34 AM Results f or this PATHOLOGY EST procedure are i n the results section. LIVER BIOPSY Routine 12/22/2011 9:31 AM Results f or this (PERCUTANEOUS) EST procedure are in the results section. LIVER BIOPSY 12/22/2011 9:05 AM Hepatitis C EST documented in this encounter Results SURGICAL PATHOLOGY REPORT (12/22/2011 12:15 PM EST) Component Value Ref Test Analysis Performed At [facility] Range Method Time Signature Surgical CERNER Pathology ? [facility] [place] Report ? Provider: ?? DARION, ZEHRA ? Pt. Name: ?? LEA DRY, CARLEY T ? Acc #: ?[id number] ?Pt. MRN: ?[id number] ? Col Date: ?? 2 ? /Sex: ?1965,(46 years),Male ? Rec Date: ?? 12/22/2011 ? LOC: ?4T ? SURGICAL PATHOLOGY ? ---Pathologic Diagnosis--- ? Liver, needle biopsy specimen showing portal lympho cytic aggregates, ? moderate interface hepatitis and moderate lobular nec roinflammatory ? activity. ? Trichrome stain shows portal fibrosis, fibrous septa and bridging fibrosis. ? Iron stain is negative for iron deposition. ? The findings are cons istent with chronic hepatitis C, stage 3/4, grade 3/4 ? (moderate activity). ? CR-0 ? 12/23/11 ? AAS ? 12/23/11 Verified by: ? Sia Monk MD ? Pathologist ? (Electronic Si gnature) ? The attending pathologist whose signature appears o n this report has ? reviewed all diagnostic slides and has edited the lester ss and/or ? microscopic portion of the report in rendering the fi nal pathologic ? diagnosis. ? ---Microscopic Description--- ? Slides reviewed, microscopic description not recorded . ? ---Gross Description--- ? Labeled/Fixative: ? Liver biopsy, formalin. ? Qty/Size/Weight: ?Two soft, red-brown needle c ore biopsies, ? 1.8 x 0.1 cm and 2.0 x 0.1 cm. ? Sections/Processing: ??(T1) ??aje/SNS ? ---Clinical Information--- ? Specimen Submitted: ? A - Liver biopsy ? Clinical History/Diagnosis: ? PT with hepatitis C Specimen (Source) Anatomical Collection Method Collection Time Re ceived Time Location / / Volume Laterality 12/22/2011 12:15 PM EST Zehra Orlando MD PATHOLOGY/CYTOLOGY ORDERABLE S Performing Organization Address City/State/[place] [address] [facility] Specimen to Pathology (surgical or derm) (12/22/2011 9:34 AM EST) Specimen Anatomical Collection Method Collection Time Receive d Time (Source) Location / / Volume Laterality AP Specimen 12/22/2011 9:34 AM 201 2 9:34 EST AM EST Narrative CERNER MILLENNIUM - 12/22/2011 9:[address] Specimen requisition ordered. ??Separate Pathology report to follow Zehra Orlando MD PATHOLOGY/CYTOLOGY ORDERABLE S Performing Organization Address City/[facility]/[place] [address] [facility] LIVER BIOPSY (PERCUTANEOUS) (12/22/2011 9:31 AM EST) [facility] gist Method Time Signature LIVER BIOPSY [facility] Endoscopy Patient Name: Carley Palomares ? Procedure Date: 12/22/2011 9:31 AM ? N: [id number] ? Date of : 1965 ? Age: 46 ? Order #: [id number] ? Procedure: ? Liver biopsy Indications: ? Established hepatitis C Providers: ? Zehra Orlando MD Referring MD: ?Abdelrahman Gonzales MD Medicines: ? 1% Lidocaine 10 mL SubQ, Fentanyl 200 ? mcg IV, Midazolam 4 mg PO Complications: ? No immediate complications. Procedure: ? Pre-Anesthesia Assessment: ? - Prior to the procedure, a H istory ? and Physical was performed, a nd ? patient medications, allergie s and ? sensitivities have been revie wed. The ? patient's tolerance of previo us ? anesthesia has been reviewed. ? - The risks and benefits of t he ? procedure and the sedation op tions ? and risks were discussed with the ? patient. All questions were a nswered ? and informed consent was obta ined. ? The procedure, indications, b enefits, ? risks and alternatives were e xplained ? to the patient. Specifically ? discussed were potential ? complications including, but not ? limited to, bleeding, perfora tion, ? infection, missing a cancer, and ? adverse medication reactions. Aseptic ? technique was used. The point of ? maximal dullness was determin ed by ? percussion. 1% Lidocaine loca l ? anesthesia was injected. The depth of ? the liver was confirmed by sp inal ? needle sounding.The liver bio psy was ? accomplished without difficul ty. The ? patient tolerated the procedu re well. ? Findings: ? Two 20 mm unfragmented cores of tissue were obtained. ? Tissue was sent for histology. Two passes 1.7 mm in ? diameter were made with the [employer] Bx gun. The biopsy ? was done under fluoroscopic guidance. ? Impression: ?- Tissue was submitted to patholog y. Recommendation: ?- Await pathology results. ? Zehra Orlando MD 12/22/2011 9:33 AM ? Number of Addenda: 0 Note Initiated On: 12/22/2011 9:31 AM Specimen (Source) Anatomical Collection Method Collection Time Re ceived Time Location / / Volume Laterality 12/22/2011 9:31 AM EST Abdelrahman Gonzales [employer] [facility] ORDER[employer]LES Performing Organization Address City/State/ZIP Code Phon e Number [employer] documented in this encounter Visit Diagnoses Not on filedocumented in this encounter Administered Medications Inactive Administered Medications - up to 3 most recent administrations Medication Order MAR Action Action Date Dose Rate Site OXYcodone-acetaminophen Given 12/22/2011 11:49 AM EST 2 tablets (PERCOCET) 5-325 mg per tablet 2 tablet 2 tablet, Oral, EVERY 4 HOURS PRN, Starting on Tue12/22/11 at 1134, Until Tue12/22/11 at 1509, Pain, Maximum dose of acetaminophen is 4000 mg from all sources in 24 hours., Endoscopy (Recovery-Hospital Unit), Routine sodium chloride 0.9% infusion New Bag 12/22/2011 10:20 AM EST 100 mL/hr 100 mL/hr 100 mL/hr, Intravenous, CONTINUOUS, Starting on Tue12/22/11 at 0830, Until Tue12/22/11 at 1509, Endoscopy (Day of Procedure) documented in this encounter Active and Recently Administered Medications Times are shown in EST. Continuous Medication Order 12/20/2011 12/21/2011 12/22/2011 sodium chloride 0.9% infusion (CANCELED) 0830 (Due)1020 (New Bag - Provider: Alejandra Sanchez RN) 100 mL/hr, at 100 mL/hr, Intravenous, CO NTINUOUS, Starting Tue12/22/11 at 0830, Until Tue12/22/11 at 1509, Endo (Day of Procedure) PRN Medication Order 12/20/2011 12/21/2011 12/22/2011 fentaNYL 50mcg/mL injection (CANCELED) 0907 (Given - Provider: Radha Lwe RN - Comment: first dose of moderate sedation)0912 (Given - Provider: Radha Lew RN - Comment: med for sedation)0916 (Given - Provider: Radha Lew RN - Comment: med for sedation) ONCE PRN, Starting Tue12/22/11 at 0907, Until Tue12/22/11 at 1509, Pain, Intra- Operative (Intra-Procedure), Routine 092 1 (Given - Provider: Radha Lew RN - Comment: med for sedation) midazolam (VERSED) injection (CANCELED) 0908 (Given - Provider: Radha Lew RN - Comment: first dose of moderate sedation)0912 (Given - Provider: Radha Lew RN - Comment: med for sedation)0916 (Given - Provider: Radha Lew RN - Comment: med for sedation) ONCE PRN, Starting Tue12/22/11 at 0908, Until Tue12/22/11 at 1509, Sleep, Intra- Operative (Intra-Procedure), Routine 092 0 (Given - Provider: Radha Lew RN - Comment: med for sedation) OXYcodone-acetaminophen (PERCOCET) 5-325 mg per tablet 2 tablet (CANCELED) 1149 (Given - Provider: Alejandra Sanchez RN) 2 tablet, Oral, EVERY 4 HOURS PRN, Start ing Tue12/22/11 at 1134, Until Tue12/22/11 at 1509, Pain, Maximum dose of acetaminophen is 4000 mg from all sources in 24 hours., Endo (Recovery-Hospital Unit), Routine documented in this encounter Care Teams [employer] Relationship Specialty Start Date End Date Abdelrahman Gonzales APRN PCP - General 05/04/11 03/23/22 [address] [place] [address] documented as of this encounter
--- OUTSIDE RECORDS SUMMARY | 2022-07-12 08:58 | XMS_ITS | Encounter Summary ---
:1965 Author Organization [facility] [place] [address] Care Team Providers Name Role Phone Abdelrahman Gonzales APRN Primary Care Provider [phone] Reason for Visit Reason Comments GI Problem Encounter Details Date Type Department Care Team Description 12/08/2011 Office Visit Gastroenterology at [facility] Maida Pineda, Hepatitis C (Primary [facility] Chrissy arellano APRN Dx) [place] [address] [place] [address] [facility]STRO[facility] [address] Social History Tobacco Use Types Packs/Day Years [...] Sign Reading Time Taken Comments Blood Pressure 130/84 12/08/2011 2:41 PM EST Pulse 52 12/08/2011 2:41 PM EST Temperature - - Respiratory Rate - - Oxygen Saturation - - Inhaled Oxygen Concentration - - Weight 96 kg (211 lb 9.6 oz) 12/08/2011 2:41 PM EST Height 178.4 cm (5' 10.25) 12/08/2011 2:41 PM EST Body Mass Index 30.15 12/08/2011 2:41 PM EST documented in this encounter Patient Instructions Patient InstructionsMaida Pineda APRN - 12/08/2011 3:23 PM EST Images from the original note were not included. [facility] Section of Gastroenterology & Hepatology [phone] Aspirin and Ibuprofen Restriction Medication List Do NOT take any of these medications for at least 7 days before your Liver Biopsy. Tylenol may be taken for pain. Advil Relafen Aleve Robaxisal Debbi Leahy Ascription Debbiken Leahy Plus Torey-Fayne Capsules Anacin Maximum Strength [place] Aspergum Sine-off Aspirin Lone Jack's Aspirin [facility] Super Anahist BC Tablets Synalogos Bufferin Talwin CAMA Triaminin [place] Trigesic Contact Duy Rai Ecotrin Equagesic Excedrin Fiorinal 4-way Cold Tablets Ibuprofen Measurin Midol Motrin Norgesic Novhistine with APC Nuprin P-A-C Percodan Contact your Doctor about taking aspirin containing medications after your Liver Biopsy. documented in this encounter Progress Notes Maida Pineda APRN - 12/08/2011 2:45 PM EST Subjective: Patient ID: Iban Palomares is a 46 y.o. male. HPI Mr. Palomares is a 46 year old male who was diagnosed with Hepatitis C, genotype 1b. He was first diagnosed 17 years ago while incarcerated. He had a liver biopsy in the in [place], he does not know what the biopsy showed but believes that he was told that he should not get treated. He cannot remember the name of the hospital where he had the procedure. His risk factors for viral acquisition include [...] problem for him and decided to quit. OUTSIDE STUDIES: abd U/S 09/17/2011 Liver upper limits of normal in size Normal echogenicity 10/12/2011 Wbc 6.8 Hg 16.9 plt 278 Alt 147, ast 108, alb 4.4, ap 90, tbili 0.6, tprot 8.3 Creat 0.8 na 136, kcl 4.6 Past Medical History Diagnosis Date ??? Asthma ??? Bipolar 1 disorder ??? COPD (chronic obstructive pulmonary disease) ??? Herniated disc ??? HTN (hypertension) Past Surgical History Procedure Date ??? Laminotomy, lumbar disk, 1 intrsp 06/17/2011 LAMINOTOMY, DECOMPRESSION, FORAMINOTOMY, LUMBAR performed by ANDI PURCELL at [facility] MAIN OR ??? Hernia repair ??? Hand surgery History Social History ??? Marital Status: Spouse Name: N/A Number of Children: N/A ??? Years of Education: N/A Social History Main Topics ??? Smoking status: Current Everyday Smoker -- 0.8 packs/day for 28 years Types: Cigarettes ??? Smokeless tobacco: Not on file Comment: 6 cigs daily ??? Alcohol Use: No May 02, 2011 sober date ??? Drug Use: No ??? Sexually Active: Not on file Other Topics Concern ??? Not on file Social History Narrative History of drinking daily until he passed out 20 + beers plus vodkaDrank like this age 17Was sober for 14 months while incarcerated4 DUI'sLast DUI August 2009Not currently liscencedOn disability forbipolar diseaseMarried lives with spouse2 biologic children asthma and depression aged 19 and 19Wifehas 4 kids (they have one daughter together)1 child lives in the house No family history on file. Review of Systems Constitutional: Negative for fever, [...] suicidal ideas. Objective: Physical Exam Constitutional: He is oriented to person, place, and time. He appears well- developed and well-nourished. HENT: Head: Normocephalic and atraumatic. Eyes: Pupils are equal, round, and reactive to light. No scleral icterus. Neck: No thyromegaly present. Cardiovascular: Normal rate, regular rhythm and normal heart sounds. No murmur heard. Pulmonary/Chest: Effort normal and breath sounds normal. He has no wheezes. Abdominal: Soft. Bowel sounds are normal. There is no hepatosplenomegaly. No tenderness. Musculoskeletal: He exhibits no edema. Neurological: He is alert and oriented to person, place, and time. Skin: Skin is warm and dry. Psychiatric: He has a normal mood and affect. His behavior is normal. Assessment and Plan: Mr. Palomares is a 46 year old male with a long history of alcohol abuse and concomitant Hepatitis C infection which would raise the concern for hepatic fibrosis. He has no stigmata of cirrhosis on physical exam, imaging or labs to date. He cannot remember where his first liver biopsy was performed but this was over 10 years ago and I think at this point the natural next step would be to perform a liverbiopsy to stage and grade his hepatitis. I would like to see him back after the biopsy to consider his treatment options. If he does not havesignificant fibrosis we discussed possibly waiting for a non- interferon based treatment given his depression history. This is likely to be available in the next five years. documented in this encounter Plan of Treatment Upcoming Encounters Date Type Specialty Care Team Description 07/14/2022 TH Visit (TeleHealth) Palliative Care Kian Zelaya APRN [facility] PALLIATIVE MEDIC [place], [place] [address] (Wo rk) 07/22/2022 TH Visit (TeleHealth) Palliative Care Benoit Lei [facility] [place] [address] Criselda eZlaya [facility] [place] [address] 08/12/2022 Office Visit Cardiology Hari Summers MD [facility] [place] [address] Kit Bonilla MD [facility] [place] [address] documented as of this encounter Procedures Procedure Name Priority Date/Time Associated Comments Diagnosis MISCELLANEOUS LAB Routine 12/08/2011 3:52 PM Hepatitis C Resu lts for this REQUEST EST procedure are i n the results section. DIFFERENTIAL, Routine 12/08/2011 3:52 PM Results for this AUTOMATED EST procedure are i n the results section. IRON AND TIBC Routine 12/08/2011 3:52 PM Hepatitis C Results for this EST procedure are i n the results section. CRYOGLOBULIN Routine 12/08/2011 3:52 PM Hepatitis C Results f or this EST procedure are i n the results section. AFP TUMOR MARKER Routine 12/08/2011 3:52 PM Hepatitis C Resul ts for this EST procedure are i n the results section. PROTHROMBIN TIME Routine 12/08/2011 3:52 PM Hepatitis C Resul ts for this EST procedure are i n the results section. CBC (WITH DIFF) Routine 12/08/2011 3:52 PM Hepatitis C Result s for this EST procedure are i n the results section. C3 COMPLEMENT Routine 12/08/2011 3:52 PM Hepatitis C Results for this EST procedure are i n the results section. C4 COMPLEMENT Routine 12/08/2011 3:52 PM Hepatitis C Results for this EST procedure are i n the results section. JAY Routine 12/08/2011 3:52 PM Hepatitis C Results f or this EST procedure are i n the results section. TSH Routine 12/08/2011 3:52 PM Hepatitis C Results f or this EST procedure are i n the results section. FERRITIN Routine 12/08/2011 3:52 PM Hepatitis C Results f or this EST procedure are i n the results section. MISC HESTER TEST-HESTER Routine 12/08/2011 3:40 PM Re sults for this EST procedure are i n the results section. LIVER BIOPSY Routine 12/08/2011 3:23 PM Hepatitis C (PERCUTANEOUS) EST documented in this encounter Results DIFFERENTIAL, AUTOMATED (12/08/2011 3:52 PM EST) P athologist Signature Neutrophils % 54.2 34.0 - CERNER 71.0 % MILLENNIUM Neutr Abs (ANC) 4.46 1.50 - CERNER 6.30 MILLENNIUM x10(3)/mcL Lymphocytes % 33.5 19.0 - CERNER 53.0 % MILLENNIUM Lymphocytes Abs 2.8 1.0 - 3.6 CERNER x10(3)/mcL MILLENNIUM Monocytes % 8.1 4.0 - 13.0 CERNER % MILLENNIUM Monocyte Abs 0.7 0.2 - 1.0 CERNER x10(3)/mcL MILLENNIUM Eosinophils % 3.6 0.0 - 7.0 CERNER % MILLENNIUM Eosinophils Abs 0.3 0.0 - 0.5 CERNER x10(3)/mcL MILLENNIUM Basophils % 0.2 0.0 - 2.0 CERNER % MILLENNIUM Basophils Abs 0.0 0.0 - 0.2 CERNER x10(3)/mcL MILLENNIUM Immature Gran % 0.40 0.00 - CERNER 0.66 % MILLENNIUM Comment: Immature granulocytes(IG's)percentage an d absolute count will include metamyelocytes, myelocytes, and promyelo cytes. Blood smears from CBCs yielding IG's will be scanned manually for concor dance. If this scan disagrees with the automated IG or if promyelocytes are not ed, a manual differential will be performed. Cathy Gran Abs 0.03 0.00 - 0.05 x10(3)/mcL CER NER MILLENNIUM Specimen Anatomical Collection Method Collection Time Receive d Time (Source) Location / / Volume Laterality Blood specimen 12/08/2011 3:52 PM 012 3:55 (specimen) EST PM EST Yusuf Longoria MD HEMATOLOGY ORDERABLES Performing Organization Address City/State/[place] [address] CERNER MILLENNIUM Prothrombin Time (12/08/2011 3:52 PM EST) P athologist Signature PT 13.2 11.9 - 14.7 CERNER sec MILLENNIUM Comment: [facility] Transfusion Committee Guidelines: I NR less than 2.0, PTT less than OR equal to 43.5 seconds, or Fibrinogen gre ater than or equal to 100 mg/dl indicate adequate procoagulant activity for hemostasis in patients without underlying bleeding disorders. INR 1.0 0.9 - 1.1 [facility] Specimen Anatomical Collection Method Collection Time Receive d Time (Source) Location / / Volume Laterality Blood specimen 12/08/2011 3:52 PM 012 3:56 (specimen) EST PM EST Yusuf Longoria MD HEMATOLOGY ORDERABLES Performing Organization Address City/[facility] [place] [address] CERNER MILLENNIUM CBC (with Diff) (12/08/2011 3:52 PM EST) P athologist Signature WBC 8.2 4.0 - 10.0 CERNER x10(3)/mcL MILLENNIUM RBC 5.10 4.63 - 6.08 CERNER x10(6)/mcL MILLENNIUM Hemoglobin 15.8 13.7 - 17.5 CERNER gm/dL MILLENNIUM Hematocrit 44.1 40.0 - 51.0 CERNER % MILLENNIUM MCV 86.5 79.0 - 92.0 CERNER fL MILLENNIUM MCH 31.0 25.6 - 32.2 CERNER pg MILLENNIUM MCHC 35.8 32.0 - 36.5 CERNER gm/dL MILLENNIUM Platelets 258 145 - 370 CERNER x10(3)/mcL MILLENNIUM RDWSD 42.6 35.0 - 46.0 CERNER fL MILLENNIUM RDWCV 13.4 10.9 - 14.4 CERNER % MILLENNIUM MPV 10.0 9.0 - 12.0 CERNER fL MILLENNIUM Specimen Anatomical Collection Method Collection Time Receive d Time (Source) Location / / Volume Laterality Blood specimen 12/08/2011 3:52 PM 012 3:55 (specimen) EST PM EST Yusuf Longoria MD HEMATOLOGY ORDERABLES Performing Organization Address City/[facility]/ZIP [facility] [address] [facility] MILLENNIUM Miscellaneous Lab request (12/08/2011 3:52 PM EST) Patholo gist Method Time Signature Misc Lab Request CERNER Result received in MILLENNIUM lab. Specimen Anatomical Collection Method Collection Time Receive d Time (Source) Location / / Volume Laterality Specimen of 12/08/2011 3:52 PM 2 3:56 unknown material EST PM EST (specimen) Yusuf Longoria MD HEMATOLOGY ORDERABLES Performing Organization Address City/[facility]/ZIP Code Phon e Number [address] CERNER MILLENNIUM (ABNORMAL) Iron and TIBC (12/08/2011 3:52 PM EST) Analysis Performed At Patho logist Time Signature Iron 168 (H) 45 - 160 CERNER mcg/dL MILLENNIUM TIBC 350 250 - 450 CERNER mcg/dL MILLENNIUM Iron Saturation 48 20 - 50 % [facility] Specimen Anatomical Collection Method Collection Time Receive d Time (Source) Location / / Volume Laterality Blood specimen 12/08/2011 3:52 PM 012 3:56 (specimen) EST PM EST Yusuf Longoria MD CHEMISTRY ORDERABLES Performing Organization Address City/[facility]/ZIP Code Phon e Number [address] CERNER MILLENNIUM Ferritin (12/08/2011 3:52 PM EST) athologist Signature Ferritin 313 30 - 400 CERNER ng/mL [facility] Comment: Pediatric reference ranges not verified at [facility], interpret with caution. Reference ranges for females greater reyes n 50 years of age approach values for men, i.e., 30-400 ng/mL. Specimen Anatomical Collection Method Collection Time Receive d Time (Source) Location / / Volume Laterality Blood specimen 12/08/2011 3:52 PM 012 4:09 (specimen) EST PM EST Yusuf Longoria MD CHEMISTRY ORDERABLES Performing Organization Address City/[facility]/ZIP Code Phon e Number [address] CERNER MILLENNIUM TSH (12/08/2011 3:52 PM EST) athologist Signature TSH 0.50 0.27 - 4.20 CERNER mcIU/mL MILLENNIUM Specimen Anatomical Collection Method Collection Time Receive d Time (Source) Location / / Volume Laterality Blood specimen 12/08/2011 3:52 PM 012 3:56 (specimen) EST PM EST Yusuf Longoria MD CHEMISTRY ORDERABLES Performing Organization Address City/[facility]/[place] [address] CERNER MILLENNIUM JAY (12/08/2011 3:52 PM EST) P athologist Signature JAY Neg Neg CERNER MILLENNIUM Specimen Anatomical Collection Method Collection Time Receive d Time (Source) Location / / Volume Laterality Blood specimen 12/08/2011 3:52 PM 012 8:14 (specimen) EST AM EST Yusuf Longoria MD IMMUNOLOGY ORDERABLES Performing Organization Address [facility] Phon e Number [address] CERNER MILLENNIUM AFP tumor marker (12/08/2011 3:52 PM EST) P athologist Signature AFP 5 <=19 ng/mL CERNER MILLENNIUM Specimen Anatomical Collection Method Collection Time Receive d Time (Source) Location / / Volume Laterality Blood specimen 12/08/2011 3:52 PM 012 8:08 (specimen) EST AM EST Yusuf Longoria MD CHEMISTRY ORDERABLES Performing Organization Address City/[facility] [place] [address] CERNER MILLENNIUM C4 Complement (12/08/2011 3:52 PM EST) P athologist Signature C4 Complement 17 10 - 40 CERNER mg/dL MILLENNIUM Specimen Anatomical Collection Method Collection Time Receive d Time (Source) Location / / Volume Laterality Blood specimen 12/08/2011 3:52 PM 012 3:56 (specimen) EST PM EST Yusuf Longoria MD CHEMISTRY ORDERABLES Performing Organization Address City/[facility] [place] [address] CERNER MILLENNIUM C3 Complement (12/08/2011 3:52 PM EST) P athologist Signature C3 Complement 143 90 - 180 CERNER mg/dL MILLENNIUM Specimen Anatomical Collection Method Collection Time Receive d Time (Source) Location / / Volume Laterality Blood specimen 12/08/2011 3:52 PM 012 3:56 (specimen) EST PM EST Yusuf Longoria MD CHEMISTRY ORDERABLES Performing Organization Address [facility]/ZIP Code Phon e Number [address] [facility] MILLENNIUM Cryoglobulin (12/08/2011 3:52 PM EST) athologist Signature Cryoglob See Note CERNER MILLENNIUM Comment: Cryoglobulins negative at 24 an d 72 hours. Specimen Anatomical Collection Method Collection Time Receive d Time (Source) Location / / Volume Laterality Blood specimen 12/08/2011 3:52 PM 012 3:58 (specimen) EST PM EST Yusuf Longoria MD CHEMISTRY ORDERABLES Performing Organization Address [facility] Code Phon e Number [address] CERNER MILLENNIUM MISC HESTER TEST-HESTER (12/08/2011 3:40 PM EST) [facility] gist Method Time Signature Misc Hester CERNER ? [place] ? Expected MILLENNIUM Test ? Result ?LO ??Units ??Values IL28B Polymorphism Genotype ??IL28B Polymorphism: ?CC genotype Interpretation: The CC genotype, as compared to either the CT or TT genotypes, has been associated with an approximately 2-3 fold greater rate of sustained viral response in Hepatitis C Virus genotype 1 chronically infected individuals treated with combination pegylated interferon/ribavirin therapy (1). Similar sustained viral response associations across various racial groups including Americans (95% CI 1.8-2.3), Americans (95% CI 1.9-4.7), and Hispanics (95% CI 1.4-3.2) have been observed (1). The CC genotype has also been associated with a 3 fold increase in rate of spontaneous clearance of HCV (2). IL28B genotype is only one of many factors that can influence response rated to pegylated interferon/ribavirin therapy in HCV genotype 1 infection and should be interpreted in the context of other clinical factors. Test Performed by: [facility] [address] [facility] [address] [address] [place] [address] Specimen Anatomical Collection Method Collection Time Receive d Time (Source) Location / / Volume Laterality Blood specimen 12/08/2011 3:40 PM 012 4:23 (specimen) EST PM EST Maida Pineda APRN CHEMISTRY ORDERABLES Performing Organization Address City/State/[place] [address] [facility] documented in this encounter Visit Diagnoses Diagnosis Hepatitis C - Primary Unspecified viral hepatitis C without he patic coma documented in this encounter Care Teams Streaming Media Specialist Relationship Specialty Start Date End Date Abdelrahman Gonzales APRN PCP - General 05/04/11 03/23/22 [address] [place] [address] documented as of this encounter
--- OUTSIDE RECORDS SUMMARY | 2022-07-12 08:58 | XMS_ITS | Encounter Summary ---
:1965 Author Organization [facility] [place] [address] Care Team Providers Name Role Phone Abdelrahman Gonzales APRN Primary Care Provider [phone] Encounter Details Date Type Department Care Team Description 05/22/2012 Telephone Gastroenterology at [facility] [place]ia Douglas, [place] [address] Social History Tobacco Use Types Packs/Day [...] Telephone Encounter - Alia Douglas RN - 05/22/2012 10:06 AM EDT Patient on Hep C treatment calling to report that he has developed a rash under one arm. Red but notitchy. Patient will start benadryl and OTC hydrocortisone cream as directed. He will monitor and call for any worsening of the rash. documented in this encounter Plan of Treatment Upcoming Encounters Date Type Specialty Care Team Description 07/14/2022 TH Visit (TeleHealth) Palliative Care Kian Zelaya [facility] PALLIATIVE MEDIC [place], [place] [address] (Wo rk) 07/22/2022 TH Visit (TeleHealth) Palliative Care Benoit Lei [facility] [address] Criselda Zelaya [facility] [place] [address] 08/12/2022 Office Visit Cardiology Hari Summers MD [facility] [place] [address] Kit Bonilla MD [facility] [place] [address] documented as of this encounter Visit Diagnoses Not on filedocumented in this encounter Care Teams Hvac/R Instructor Relationship Specialty Start Date End Date Abdelrahman Gonzales APRN PCP - General 05/04/11 03/23/22 [address] [place] [address] documented as of this encounter
--- OUTSIDE RECORDS SUMMARY | 2022-07-12 08:58 | XMS_ITS | Encounter Summary ---
:1965 Author Organization [facility] [place] [address] Care Team Providers Name Role Phone Abdelrahman Gonzales APRN Primary Care Provider [phone] Encounter Details Date Type Department Care Team Description 02/17/2012 Clinical Support Internal Medicine at [facility] [place] [address] Social History Tobacco Use Types Packs/Day [...] Care Kian Zelaya APRN [facility] ER PALLIATIVE MEDIC [place], [place] [address] (Wo rk) 07/22/2022 TH Visit (TeleHealth) Palliative Care Benoit Lei [facility] [place] [address] Criselda Zelaya [facility] [place] [address] 08/12/2022 Office Visit Cardiology Hari Summers MD [facility] [place] [address] Kit Bonilla MD [facility] [address] documented as of this encounter Procedures Procedure Name Priority Date/Time Associated Diagnosis Comme nts EKG 12-LEAD Routine 02/17/2012 3:09 PM Hepatitis C Results f or this EDT procedure are i n the results section . documented in this encounter Results EKG 12 Lead (02/17/2012 3:09 PM EDT) Component Value Ref Range Test Analysis Performed Pathologis t Method Time At Signature Ventricular rate 59 BPM MUSE SYSTEM Atrial Rate 59 BPM MUSE SYSTEM P-R Interval 188 ms MUSE SYSTEM QRS Duration 108 ms MUSE SYSTEM Q-T Interval 412 ms MUSE SYSTEM QTC Calculated 407 ms MUSE SYSTEM (Bezet) Calculated P [place] 20 degrees MUSE SYSTEM Calculated R [place] 37 degrees MUSE SYSTEM Calculated T [place] 19 degrees MUSE SYSTEM INTERPRETATION Sinus bradycardia [...] 3:09 PM 2 5:44 EDT PM EDT uYsuf Longoria MD ECG ORDERABLES Performing Organization Address City/State/ZIP Code Phon e Number MUSE SYSTEM documented in this encounter Visit Diagnoses Diagnosis Hepatitis C Unspecified viral hepatitis C without he patic coma documented in this encounter Care Teams Nuclear Control Room Operator Relationship Specialty Start Date End Date Abdelrahman Gonzales APRN PCP - General 05/04/11 03/23/22 [address] [place] [address] documented as of this encounter
--- OUTSIDE RECORDS SUMMARY | 2022-07-12 08:58 | XMS_ITS | Encounter Summary ---
:1965 Author Organization [facility] [place] [address] Care Team Providers Name Role Phone Abdelrahman Gonzales APRN Primary Care Provider [phone] Encounter Details Date Type Department Care Team Description 03/23/2022 Ancillary Procedure Radiology Library at Danish Gonzales [facility] L, SREEDHAR [facility] [address] [place] [address] [place], [place] [phone] (Wo rk) [phone] Social History Tobacco Use Types Packs/Day Years [...] TH Visit (TeleHealth) Palliative Care Kian Zelaya [facility] ER PALLIATIVE MEDIC [place], [place] [address] (Wo rk) 07/22/2022 TH Visit (TeleHealth) Palliative Care Benoit Lei [facility] [place] [address] Criselda Zelaya [facility] [place] [address] 08/12/2022 Office Visit Cardiology Hari Summers MD [facility] [place] [address] Kit Bonilla MD [facility] [place] [address] documented as of this encounter Procedures Procedure Name Priority Date/Time Associated Diagnosis Comme nts FILM LIBRARY Routine 03/23/2022 12:00 AM Results for this STORAGE ONLY CT EDT procedure ar e in CHEST the results section. documented in this encounter Results Film Library- Storage Only CT Chest (03/23/2022 12:00 AM EDT) Specimen (Source) Anatomical Location Collection Method / Collectio n Time Received Time / Laterality Volume Narrative MAXIMILIANO BREEN - 03/30/2022 3:08 PM EDT This exam is auto-finalizing. It's purpo se is for storage only. Abdelrahman Gonzales APRN [facility] FILM LIBRARY ORDERABLES Performing Organization Address City/State/ZIP Code Phon e Number [place], [place] documented in this encounter Visit Diagnoses Not on filedocumented in this encounter Care Teams Personal Banking Officer Relationship Specialty Start Date End Date Abdelrahman Gonzales APRN PCP - General 05/04/11 03/23/22 [address] [place] [address] documented as of this encounter
--- OUTSIDE RECORDS SUMMARY | 2022-07-12 08:58 | XMS_ITS | Encounter Summary ---
:1965 Author Organization [facility] [place] [address] Care Team Providers Name Role Phone Abdelrahman Gonzales APRN Primary Care Provider [phone] Encounter Details Date Type Department Care Team Description 12/26/2012 Abstract Spine Center at [facility] [place], [place] [address] Social History Tobacco Use Types Packs/Day [...] Visit (TeleHealth) Palliative Care Kian Zelaya APRN [facility] ER PALLIATIVE MEDIC [place], [place] [address] (Wo rk) 07/22/2022 TH Visit (TeleHealth) Palliative Care Benoit Lei APRN [facility] [place] [address] Criselda Zelaya MATERIAL STRESS TESTER [facility] [place] [address] 08/12/2022 Office Visit Cardiology Hari Summers MD [facility] [place] [address] Kit Bonilla MD [facility] [place] [address] documented as of this encounter Visit Diagnoses Not on filedocumented in this encounter Care Teams Subcontract Manager Relationship Specialty Start Date End Date Abdelrahman Gonzales APRN PCP - General 05/04/11 03/23/22 [address] [place] [address] documented as of this encounter
--- OUTSIDE RECORDS SUMMARY | 2022-07-12 08:58 | XMS_ITS | Encounter Summary ---
:1965 Author Organization [facility] [place] [address] Care Team Providers Name Role Phone ChristianAbdelrahman APRN Primary Care Provider [phone] Encounter Details Date Type Department Care Team Description 12/22/2011 Surgery [place]ology at [facility] Zehra Orlando MD LIVER BIOPSY [facility] [place] [address] GASTROENTEROLOGY [phone] [place], [place] [address] (Wo rk) Social History Tobacco [...] LIVER BIOPSY: WHAT TO EXPECT AT HOME (FRENCH)documented in this encounter Medications at Time of [...] [facility] PALLIATIVE MEDIC ALYSSA [place], [place] [address] (Wo rk) 07/22/2022 TH Visit (TeleHealth) Palliative Care Benoit Lei APRN [facility] PALLIATIVE [place] [address] Criselda Zelaya APRN [facility] DR PALLIATIVE [place] [address] 08/12/2022 Office Visit Cardiology Hari Summers MD [facility] [place] [address] Kit Bonilla MD [facility] DR [place]ARDIOLOGY [place] [address] documented as of this encounter Procedures Procedure [...] Component Value Ref Test Analysis Performed At [facility] Range Method Time Signature Surgical CERNER Pathology ? [facility] Report ? Provider: ?? DARION, ZEHRA ? Pt. Name: ?? LEA DRY, CARLEY T ? Acc #: ?[id number] ?Pt. MRN: ?[id number] ? Col Date: ?? 2 ? /Sex: [...] Organization Address City/State/ZIP Code Phon e Number [place] [id number] YULI HARDEN Specimen to Pathology (surgical or derm) (12/22/2011 9:34 AM EST) Specimen Anatomical Collection Method Collection Time Receive d Time (Source) Location / / Volume Laterality AP Specimen 12/22/2011 9:34 AM 201 2 9:34 EST AM EST Narrative YULI CONSTANTINOIUM - 12/22/2011 9:[address] Specimen requisition ordered. ??Separate Pathology report to follow Zehra Orlando MD PATHOLOGY/CYTOLOGY ORDERABLE S Performing Organization Address City/State/ZIP Code Phon e Number [address] YULI HARDEN LIVER BIOPSY (PERCUTANEOUS) (12/22/2011 9:31 AM EST) [facility] gist Method Time Signature LIVER BIOPSY [facility] [place] Endoscopy Patient Name: Carley Palomares ? Procedure Date: 12/22/2011 9:31 AM ? [employer]: [id number] ? Date of : 1965 ? Age: 46 ? Order #: [id number] ? Procedure: ? Liver biopsy Indications: ? [...] in ? diameter were made with the Shopliment Bx gun. The biopsy ? was done under fluoroscopic guidance. ? Impression: ?- Tissue was submitted to patholog y. Recommendation: ?- Await pathology results. ? Zehra Orlando MD 12/22/2011 9:33 AM ? Number of Addenda: 0 Note Initiated On: 12/22/2011 9:31 AM Specimen (Source) Anatomical Collection Method Collection Time Re ceived Time Location / / Volume Laterality 12/22/2011 9:31 AM EST Abdelrahman Gonzales PAYROLL BOOKKEEPER GENERAL SURGICAL ORDERABLES Performing Organization Address City/State/ZIP Code Phon e Number [place] documented in this encounter Visit Diagnoses Diagnosis Hepatitis C Unspecified viral hepatitis C without he patic coma documented in this encounter Administered Medications Inactive Administered Medications - up to 3 most recent administrations Medication Order MAR Action Action Date Dose Rate Site fentaNYL 50mcg/mL injection Given 12/22/2011 9:21 AM EST 50 mcg ONCE PRN, Starting on Tue12/22/11 at 0907, Until Tue12/22/11 at 1509, Pain, Intra-Operative (Intra-Procedure), Routine Given 12/22/2011 9:16 AM EST 50 mcg Given 12/22/2011 9:12 AM EST 50 mcg midazolam (VERSED) injection Given 12/22/2011 9:20 AM EST 1 mg ONCE PRN, Starting on Tue12/22/11 at 0908, Until Tue12/22/11 at 1509, Sleep, Intra-Operative (Intra-Procedure), Routine Given 12/22/2011 9:16 AM EST 1 mg Given 12/22/2011 9:12 AM EST 1 mg OXYcodone-acetaminophen (PERCOCET) 5-325 Given 012 11:49 AM EST 2 tablets mg per tablet 2 tablet 2 tablet, [...] 12/20/2011 12/21/2011 12/22/2011 fentaNYL 50mcg/mL injection (CANCELED) 09 (Given - Provider: Radha Lew RN - Comment: first dose of moderate sedation)09 (Given - Provider: Radha Lew RN - Comment: med for sedation)0916 (Given - Provider: Radha Lew RN - Comment: med for sedation) ONCE PRN, Starting Tue12/22/11 at 0907, Until Tue12/22/11 at 1509, Pain, Intra- Operative (Intra-Procedure), Routine 092 1 (Given - Provider: Rdaha Lew RN - Comment: med for sedation) [...] Routine documented in this encounter Care Teams Cooling Pipe Inspector Relationship Specialty Start Date End Date Abdelrahman Gonzales APRN PCP - General 05/04/11 03/23/22 [address] [place] [address] documented as of this encounter
--- OUTSIDE RECORDS SUMMARY | 2022-07-12 08:58 | XMS_ITS | Encounter Summary ---
:1965 Author Organization [facility] [place] [address] Care Team Providers Name Role Phone Abdelrahman Gonzales APRN Primary Care Provider [phone] Encounter Details Date Type Department Care Team Description 06/27/2013 Telephone [place] [facility] Alia Douglas, [place] [address] Social History Tobacco Use Types Packs/Day [...] Telephone Encounter - Alia Douglas RN - 06/27/2013 4:11 PM EDT Call from patient who reports that he recently suffered a very large blood exposure. He has no knowledge of whether the individual carries the hepatitis virus or any other form of infection. The blood exposure reached from his chest, soaking his shirt, down to his pants, which were also soaked. The only open areas on Iban's skin were hangnails and other parts of his fingers. He may have gotten blood in his mouth, but not in his eyes. He has an appointment with his PCP this week. He is very concerned that he may have been re-infectedwith the Hep C virus and would like a blood test. Will forward to Kian Pineda NP. documented in this encounter Plan of Treatment Upcoming Encounters Date Type Specialty Care Team Description 07/14/2022 Visit (TeleHealth) Palliative Care Kian Zelaya APRN [facility] PALLIATIVE MEDIC [place], [place] [address] (Wo rk) 07/22/2022 Visit (TeleHealth) Palliative Care Benoit Lei APRN [facility] [place] [address] Criselda Zelaya APRN [facility] [place] [address] 08/12/2022 Office Visit Cardiology Hari Summers MD [facility] [place] [address] Kit Bonilla MD [facility] [place] [address] documented as of this encounter Visit Diagnoses Not on filedocumented in this encounter Care Teams Hand Thermal Cutter Relationship Specialty Start Date End Date Abdelrahman Gonzales APRN PCP - General 05/04/11 03/23/22 [address] [place] [address] documented as of this encounter
--- OUTSIDE RECORDS SUMMARY | 2022-07-12 08:58 | XMS_ITS | Encounter Summary ---
:1965 Author Organization [facility] [place] [address] Care Team Providers Name Role Phone Abdelrahman Gonzales APRN Primary Care Provider [phone] Encounter Details Date Type Department Care Team Description 04/17/2012 Telephone Gastroenterology at [facility] Maida Pineda APRN [facility] Chrissy [facility] [place] [address] GASTROENTEROLOGY [phone] DEPT. [place], [place] [address] Social History Tobacco Use Types [...] Telephone Encounter - Xuan Reyes RN - 04/17/2012 10:58 AM EDT Patient calls to report his medications for Hepatitis C will be arriving tomrrow, and he plans to begin taking them on 04/21. Left message on home voice mail, reminding him of blood draw schedule and requesting that he contact scheduling secretaries to set up visit with RABBLE FURNACE TENDER about 2 weeks from start date. Phone numbers provided. documented in this encounter Plan of Treatment Upcoming Encounters Date Type Specialty Care Team Description 07/14/2022 TH Visit (TeleHealth) Palliative Care Kian Zelaya [facility] PALLIATIVE MEDIC ALYSSA [place], [place] [address] (Wo rk) 07/22/2022 TH Visit (TeleHealth) Palliative Care Benoit Lei [facility] [place] [address] Criselda Zelaya [facility] [place] [address] 08/12/2022 Office Visit Cardiology Hari Summers MD [place] [address] Kit Bonilla MD [facility] [place] [address] documented as of this encounter Visit Diagnoses Not on filedocumented in this encounter Care Teams Fire Extinguisher Tester Relationship Specialty Start Date End Date Abdelrahman Gonzales APRN PCP - General 05/04/11 03/23/22 [address] [place] [address] documented as of this encounter
--- OUTSIDE RECORDS SUMMARY | 2022-07-12 08:58 | XMS_ITS | Encounter Summary ---
:1965 Author Organization [facility] [place] [address] Care Team Providers Name Role Phone Hugo Gonzalesgracie Rogers APRN Primary Care Provider [phone] Encounter Details Date Type Department Care Team Description 02/01/2013 Surgery Main Operating Room Andi Nelson LA MINOTOMY [facility] W\DECOMPRESSION, [facility] LVL, LUMBAR ,RE-EXPL [facility] (IN[address]. Drive NEUROSURGERY FACETECTOMY, [place] [phone] [place] [address] FORAMINOTOMY &\OR [phone] (Wo rk) DISCECTOMY) (WRVU 18.76) Social History Tobacco Use Types Packs/Day Years [...] usually goes away in 12-24 hours. Patient InstructionsTemi Finch - 02/01/2013 12:31 PM EDT Discharge Instructions [...] may be used if needed and are eoad-hdz-oqqzday (OTC) medications available at most [facility]. Prunes or prune juice, taken daily, can also be helpful for constipation treatment or pre vention and are available at most [employer] [employer]. Driving Restrictions*: - [] No driving until [...] surgery. This should improve over several days. [place] J Collar Instructions: You are being sent [...] PM Andi Nelson MD [facility]D [facility] 03/30/2013 1:00 PM Maida Pineda APRN [facility] 4L [facility] # Please follow-up in Neurosurgery Clinic with: Dr. Nelson as scheduled above. Please call the Neurosurgery Clinic if you have not received a scheduled appointment in the mail. ( x )You have absorbable sutures. They will absorb on their own. Steri strips will flake-off gradually. Important Phone Numbers: Outpatient Nurse: Hanny Wade Inpatient Nurses: Neurosurgical Resident Bagging Salvager (after 5pm or before 8am): Neurosurgery offices (weekdays between 8am-5pm): Dr. Martin: Dr. Leiva: Dr. Vick: Dr. Nelson: Dr. Lemus: Cristela Schultz, Nurse Practitioner: Bishop Lewis, Physician Gear Tester: Rebekah Hernandez, Physician Gear Tester Letitia Dye, Nurse Practitioner: Your surgeon may not be Bagging Salvager, especially during the night or on weekends, so be ready to tell about yourself and your surgery when you call. CC: TING GONZALES, FRETTED STRING INSTRUMENT REPAIRER [phone] documented in this encounter Medications at Time [...] FORAMINOTOMY, LUMBAR performed by ANDI NELSON at [facility] MAIN OR ??? Hernia repair ??? Hand surgery ??? Needle biopsy liver 12/22/2011 LIVER BIOPSY performed by RITA ORLANDO at [facility] ENDOSCOPY HOME MEDICATIONS: Prescriptions prior to [...] Visit (TeleHealth) Palliative Care Kian Zelaya APRN [facility] MEDICAL [facility] PALLIATIVE MEDIC [place], [place] [address] (Wo rk) 07/22/2022 TH Visit (TeleHealth) Palliative Care Benoit Lei APRN [facility] [place] [address] Criselda Zelaya APRN [facility] [place] [address] 08/12/2022 Office Visit Cardiology Hari Summers MD [facility] [place] [address] Kit Bonilla MD [facility] [place] [address] Pending Results Name Type Priority Associated Diagnoses [...] in 24 hours., Routine BUpivacaine-epiNEPHrine 0.25 %-1:200,000 Given 02/01/2013 11:10 AM EDT 6 mLs injection ONCE PRN, Starting on Deborah 02/01/13 at 1233, Until Deborah 02/01/13 at 1716, Intra-Operative (Intra-Procedure), Routine HYDROmorphone (DILAUDID) injection 0.2-0 .4 mg [...] dose, On Deborah 02/01/13 at 1345, Routine methylPREDNISolone acetate Given 02/01/2013 12:08 PM 40 mg 19- Surgical Site (depo-MEDROL) injection EDT ONCE PRN, Starting on Deborah 02/01/13 at 1208, Until [place] 02/01/13 at 1716, Intra-Operative (Intra-Procedure), Routine OXYcodone (ROXICODONE) immediate release tablet Given [...] Ashley Lucas RN)1318 (Given - Provider: Ashley Lucas RN)1324 (Given - Provider: Ashley Lucas RN) 0.2-0.4 mg, Intravenous, EVERY 5 MIN PRN , Starting Deborah 02/01/13 at 1240, Until [place] 02/01/13 at 1716, Pain, For moderate pain give: 0.2 mg every 5 minute prn For severe pain give: 0.4 mg every 5 minutes pr 1330 (Given - Provider: Ashley Lucas RN)1336 (Given - Provider: Ashley Lucas RN)1345 [...] Routine documented in this encounter Care Teams Manager Discovery Relationship Specialty Start Date End Date Ting Gonzales APRN PCP - General 05/04/11 03/23/22 [address] [place] [address] documented as of this encounter
--- OUTSIDE RECORDS SUMMARY | 2022-07-12 08:58 | XMS_ITS | Encounter Summary ---
:1965 Author Organization [facility] [place] [address] Care Team Providers Name Role Phone Abdelrahman Gonzales APRN Primary Care Provider [phone] Encounter Details Date Type Department Care Team Description 12/08/2011 Telephone Spine Center at [facility] Rolando Richardson MD [facility] [place] [address] NEUROSURGERY [phone] [place], [place] [address] (Wo rk) Social History Tobacco [...] TH Visit (TeleHealth) Palliative Care Kian Zelaya [facility] ER PALLIATIVE MEDIC [place], [place] [address] (Wo rk) 07/22/2022 TH Visit (TeleHealth) Palliative Care Benoit Lei [facility] [place] [address] Criselda Zelaya [facility] [place] [address] 08/12/2022 Office Visit Cardiology Hari Summers MD [facility] [place] [address] Kit Bonilla MD [facility] [place] [address] documented as of this encounter Visit Diagnoses Diagnosis Back pain - Primary Backache, unspecified documented in this encounter Care Teams Child Welfare Director Relationship Specialty Start Date End Date Abdelrahman Gonzales APRN PCP - General 05/04/11 03/23/22 [address] [place] [address] documented as of this encounter
--- OUTSIDE RECORDS SUMMARY | 2022-07-12 08:58 | XMS_ITS | Encounter Summary ---
:1965 Author Organization [facility] [place] [address] Care Team Providers Name Role Phone Abdelrahman Gonzales APRN Primary Care Provider [phone] Reason for Visit Reason Comments Back Pain radiating right side Encounter Details Date Type Department Care Team Description 12/15/2011 [facility] Genny MCKEON (Primary Dx) [facility] [address] [place], [place] NEUROSURGERY [address] [place] [address] [phone] Social History Tobacco Use Types Packs/Day Years [...] Sign Reading Time Taken Comments Blood Pressure - - Pulse - - Temperature - - Respiratory Rate - - Oxygen Saturation - - Inhaled Oxygen Concentration - - Weight 96.2 kg (212 lb) 12/15/2011 4:09 PM EST Height 180.3 cm (5' 11) 12/15/2011 4:09 PM EST Body Mass Index 29.57 12/15/2011 4:09 PM EST documented in this encounter Progress Notes Rolando Nelson MD - 12/15/2011 4:21 PM EST I have just seen Mr. Palomares in followup. He is status post a L4-L5 diskectomy but had ongoing pain and numbness radiating into his right leg. We obtained an MRI today and met with him to discuss the results. To my review, I really see no evidence of recurrent or residual disk at the L4-L5 level. The remainder of the levels appears free as well. Looking out into the foramen I do not see a significant narrowing on either side that would necessarily be causing him a problem. Therefore I think that one can assume that this may be secondary to scar tissue, that he is still having some residual symptoms. I suggested physical therapy but he declined such. However, I did tell him that he could increase activity to tolerance, and I think the more activity the better in terms of breaking up any of the scar tissue. At this point we will discontinue routine followup. Should any new symptoms arise we can see him back in the future. documented in this encounter Plan of Treatment Upcoming Encounters Date Type Specialty Care Team Description 07/14/2022 TH Visit (TeleHealth) Palliative Care Kian Zelaya [facility] PALLIATIVE MEDIC [place], [place] [address] (Wo rk) 07/22/2022 TH Visit (TeleHealth) Palliative Care Benoit Lei [facility] [place] [address] Criselda Zelaya [facility] [place] [address] 08/12/2022 Office Visit Cardiology Hari Summers MD [facility] [place] [address] Kit Bonilla MD [facility] [address] documented as of this encounter Visit Diagnoses Diagnosis 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
--- OUTSIDE RECORDS SUMMARY | 2022-07-12 08:59 | XMS_ITS | Encounter Summary ---
:1965 Author Organization [facility] [place] [address] Care Team Providers Name Role Phone Armando Abebe MD Primary Care Provider Reason for Visit Reason Onset Date Comments Depression 03/17/2011 Encounter Details Date Type Department Care Team Description 03/17/2011 Telephone Psychiatry and Behavioral Radha Lemus, CAUSTIC PLANT WORKER [facility] Chrissy arellano [place] [address] [place] [address] Social History Tobacco Use Types Packs/Day Years Used Date Never Assessed Financial Resource Strain Answer Date Recorded How [...] encounter Miscellaneous Notes Telephone Encounter - Radha Lemus MSW - 03/17/2011 10:25 AM EDT According to the woman who answered phone, pt does not have this phone number any longer. She received this phone number from her [employer] at least two months ago. documented in this encounter Plan of Treatment Upcoming Encounters Date Type Specialty Care Team Description 07/14/2022 TH Visit (TeleHealth) Palliative Care Kian Zelaya RN REGISTRY [facility] ER PALLIATIVE MEDIC [place], [place] [address] (Wo rk) 07/22/2022 TH Visit (TeleHealth) Palliative Care Benoit Lei [facility] [place] [address] Criselda Zelaya RN REGISTRY [facility] [place] [address] 08/12/2022 Office Visit Cardiology Hari Summers MD [facility] [place] [address] Kit Bonilla MD [facility] [place] [address] documented as of this encounter Visit Diagnoses Not on filedocumented in this encounter Care Teams Photolithographer Relationship Specialty Start Date End Date Armando Abebe MD PCP - General 09/15/10 05/03/11 [address] [place] [address] documented as of this encounter
--- OUTSIDE RECORDS SUMMARY | 2022-07-12 08:59 | XMS_ITS | Encounter Summary ---
:1965 Author Organization [facility] [place] [address] Care Team Providers Name Role Phone Ting Gonzales APRN Primary Care Provider [phone] Encounter Details Date Type Department Care Team Description 06/17/2011 Hospital Encounter Same Day Program at Andi Nelson [facility] [address] [address] [place] [address] [phone] (Wo rk) Social History Tobacco Use Types Packs/Day Years Used Date Current Every Day Smoker Cigarettes 0.8 28 Alcohol Use Standard Drinks/Week Comments Not Asked 0 (1 standard drink = 0.6 oz pure alcoho l) Financial Resource Strain Answer Date Recorded How [...] Sign Reading Time Taken Comments Blood Pressure 144/91 06/17/2011 2:30 PM EDT Pulse 75 06/17/2011 2:30 PM EDT Temperature 36.4 ??C (97.5 ??F) 06/17/2011 1:00 PM EDT Respiratory Rate 20 06/17/2011 2:30 PM EDT Oxygen Saturation 97% 06/17/2011 2:30 PM EDT Inhaled Oxygen Concentration - - Weight 90.7 kg (200 lb) 06/17/2011 9:14 AM EDT Height 180.3 cm (5' 11) 06/17/2011 9:14 AM EDT Body Mass Index 27.89 06/17/2011 9:14 AM EDT documented in this encounter Discharge Instructions Discharge InstructionsChristina Garcia RN - 06/17/2011 2:13 PM EDT POST ANESTHESIA INSTRUCTIONS Go home, [...] which usually goes away in 12-24 hours. Wound infection may occur at any time, but it is evident more often 4-7 days after surgery. Signs and symptoms may involve one or more of the followin. Temperature elevation of more than 2 degrees or greater than 100.5 degrees F 2. Swelling and redness in or around the incision. 3. Increasing pain or discomfort in or around the incision. 4. Red streaks in the skin near the incision. 5. Pus or other foul drainage from the incision. 6. Foul smell from the incision. 7. Generalized body chills or fever. 8. Severe pain. If you suspect an incisional infection is present, are having problems, or have additional questionsor concerns, please call. Patient María Carter MD - 06/17/2011 1:50 PM EDT Discharge Instructions for Spinal Surgery [...] or breathing after anterior neck surgery. Prescriptions*: The following have been prescribed to control your discomfort: (X) Narcotic pain medications, such as Percocet, Vicodin, oxycodone or Dilaudid DO NOT use alcohol, drive, or operate heavy or complex machinery while taking these medications. Narcotic pain medications may cause constipation. Stool softeners, such as Colace; mild laxatives, such as Milk of Magnesia, Sennakot, or Ducolax tabs; or enemas may be used if needed and are evio-nde-jbfowdh (OTC) medications available at most [facility] ed. Prunes or prune juice, taken daily, can also be helpful for constipation treatment or pre vention and are available at most supermarkets. Driving Restrictions*: - [X] No driving until your follow-up with Neurosurgery. [...] are recommended. Thiswill assist in wound healing. Recommendations: Take it easy for two weeks. [...] surgery. This should improve over several days. Follow-up Appointments: (X) Please follow-up in Neurosurgery Clinic with: (X)Dr. Nelson in 4-6 weeks. Please call the Neurosurgery Clinic if you have not received a scheduled appointment in the mail. (X) You have absorbable sutures. They will absorb on their own. Steri strips will flake-off gradually. Important Phone Numbers: Outpatient Nurse: Hanny Wade Inpatient Nurses: Neurosurgical Resident Trampoline Team Coach (after 5pm or before 8am): Neurosurgery offices (weekdays between 8am-5pm): Dr. Martin: Dr. Leiva: Dr. Vick: Dr. Nelson: Dr. Lemus: Cristela Schultz, Nurse Practitioner: Bishop Lewis, Physician Demo Coordinator: Rebekah Hernandez, Physician Demo Coordinator Letitia Dye, Nurse Practitioner: Your surgeon may not be Trampoline Team Coach, especially during the night or on weekends, so be ready to tell about yourself and your surgery when you call. Referrals: CC: TING GONZALES APRN documented in this encounter Medications at Time of Discharge Medication Sig Dispensed Refills Start Date End Date albuterol (PROVENTIL Inhale 2 puffs into 0 HFA;VENTOLIN HFA) 90 the lungs every 4 mcg/Actuation inhaler hours as needed. Use with spacer acetaminophen (TYLENOL) Take 2 tablets by 30 tablet 0 06/1706/04/2022 325 mg tablet mouth every 4 hours as needed for Pain. OXYcodone (ROXICODONE) 5 Take 1-2 tablets by 60 tablet 0 07/28/2011 mg immediate release mouth every 4 hours tablet as needed for Pain. lithium 300 mg tablet Take 300 mg by 0 12/31/2011 mouth 2 times daily. atenolol (TENORMIN) 50 mg Take 100 mg by 0 12/27/2012 tablet mouth daily. fluticasone-salmeterol Inhale 1 puff into 0 03/09/2012 (ADVAIR DISKUS) 250-50 the lungs every 12 mcg/dose diskus inhaler hours. methadone (DOLOPHINE) 5 mg 5 MG = 1 Tablet(s), 0 01/05/2009 07/28/2011 tablet PO, Once daily documented as of this encounter Progress Notes Christina Garcia RN - 06/17/2011 3:22 PM EDT 1500- Patients pain level up to 9/10 after OOB to bathroom. Patient tense and grimacing. IV Fentanyland Dilaudid given with minimal effect. Patient has also had PO oxycodone and tylenol with little effect. Dr. María Workman paged. Order given for patient to get 5mg of Methadone (patient takes methadone QID at home and has not had any since yesterday morning.). Patient amenable to this plan and is comfortable with going home today. documented in this encounter H&P Notes María Workman MD - 06/17/2011 10:26 AM EDT Patient Name: Carley Alford Patient Age: 45 y.o. Birthdate: 1965 Admit date: 06/17/2011 Attending Physician: Andi Nelson MD COMPLETE HISTORY AND PHYSICAL for ADMISSION, OBSERVATION OR PROCEDURE Date of : 1965 Age: 45 y.o. PCP: TING GONZALES APRN Presenting Diagnosis/Chief Complaint: No chief complaint on file. History of Present Illness/Description of Symptoms: Mr. Alford is a 45-year-old male with a history of chronic low back pain but superimposed left lower extremity pain that has come on more recently. He has tried physical therapy and oral medications. Because of his chronic back pain he is taking methadone daily, which does not seem to really eradicate his new radicular symptoms. His MRI shows focal disk herniation at L4-L5 that is asymmetric to the left side. This causes nerve root compression of the exiting L5 nerve root. For Surgical/Procedure patients Indications/Pre-op Diagnosis: L4-L5 disk herniation Proposed Procedure: MetrX L4-L5 laminotomy and decompression Past Medical/Surgical History: Patient Active Problem List Diagnoses Code ??? Lumbar disc herniation 722.10AT Hernia repair Medications: No current facility-administered medications on file prior to encounter. Current outpatient prescriptions ordered prior to encounter Medication Sig Dispense Refill ??? lithium 300 mg tablet Take 300 [...] into the lungs every 12 hours. ??? methadone (DOLOPHINE) 5 mg tablet 5 MG = 1 Tablet(s), PO, Once daily Significant Family History: Non Contributory REVIEW OF SYSTEMS: General: Denies recent fever, chills, or weight changes. Eyes: Denies recent changes in vision. ENT: Denies recent changes in hearing, rhinorrhea or sore throat. Cardiovascular: Denies CP, palpitations or irregular heart beat. Respiratory: Denies SOB, cough or recent respiratory infections. GI: Denies N/V/D/C or change in appetite : Denies changes in urination; frequency, urgency or burning. Musculoskeletal: Denies weakness, numbness or tingling in all but LLE. Neuro: Denies recent changes in mentation, memory or behavior. PHYSICAL EXAM: BP 147/97 Pulse 60 Temp(Src) 36.8 ??C (98.2 ??F) (Oral) Resp 16 Ht 180.3 cm (5' 11) Wt 90.719 kg (200 lb) BMI 27.89 kg/m2 SpO2 99% Constitutional: Well developed, well nourished, in NAD Eyes: EOMI ENT: Clear, hearing intact to limited bedside testing Cardiovascular: Regular rate, rhythm, no murmur Respiratory: Clear to auscultation all sen GI: Abdomen soft, non tender Neuro: Mental Status/Cognitive: Awake, alert, answers questions appropriately. CN: CN Exam: CN II - Vision grossly intact CN III, IV, - EOMI CN V - V1-3 dermatomes intact to LT, MM 5/5 bilat CN VII - No facial asymmetry CN VIII - Hearing intact to limited bedside exam CN IX, X - Uvula midline CN XI - SCM and trapezius 5/5 bilat CN XII - Tongue midline Motor: Segment Muscle Action Right Left C5 Biceps Elbow flexion 5 5 C6 Extensor carpi radialis Wrist extension 5 5 C7 Triceps Elbow extension 5 5 C8, T1 Hand intrinsics Grasp 5 5 L2 Iliopsoas Hip flexion 5 4* L3 Quadriceps Knee extension 5 4* L4 Tibialis anterior Dorsiflexion 5 4+ L5 Extensor hallucis Great toe extension 5 4+ S1 Gastrocnemius Plantar flexion 5 4+ *limited by pain Sensory: intact to LT x 4 extremities ASSESSMENT: 45 year old with L4-L5 disk herniation. TREATMENT PLAN: To OR today for L4-L5 laminotomy and decompression documented in this encounter Miscellaneous Notes Miscellaneous - Provider, Scanning - 06/18/2011 10:02 AM EDT Miscellaneous - Provider, Scanning - 06/18/2011 9:58 AM EDT Op Note - Andi Nelson MD - 06/17/2011 12:45 PM EDT [facility] Operative Note Patient Name: Carley Alford : [id number] MR#: [id number] Case Date: 06/17/2011 Surgeon: Surgeon(s) and Role: * ANDI NELSON MD - Primary Preoperative diagnosis: LEFT L4-5 HNP Postoperative diagnosis: Left L4-5 HNP Procedure(s): LAMINOTOMY, DECOMPRESSION, FORAMINOTOMY, LUMBAR MODIFIER METRX SYS. Preoperative Diagnosis: L4-L5 herniated disk. Postoperative Diagnosis: L4-L5 herniated disk. Procedure: Left L4-L5 microdiskectomy. Brief History: The patient is a 45-year-old male with a history of chronic low back pain. The patient had a superimposed left-sided radicular pain that corresponded to a herniated disk. Conservative treatment had not improved the symptoms, and the patient wished for operative management. Operative Report: The patient was intubated and placed on the operating table on a Handy frame in a prone position. The back was prepped and draped in the usual sterile fashion. A paramedian incision was made over the L4-L5 interspaces corresponding to an intraoperative C arm image. Dilating tubes were placed and docked against the inferior aspect of the L4 lamina. Final x-ray was used to confirm adequate placement. The microscope was brought into position. Investing musculature was removed from the lamina with Bovie electrocautery. The #3 and #4 Kerrison rongeurs were used to perform the laminotomy. The ligamentum flavum was incised and removed with Kerrison rongeurs. The thecal sac was retracted medially, revealing a herniated portion of disk. The disk was incised, and herniated disk material was removed. At the conclusion a final x-ray was taken to make sure that the superior and inferior extent of the region had been explored. A ball-tip probe was used to sweep medially, laterally, inferiorly, and superiorly, and no additional herniated fragments could be seen. The area was liberally irrigated and closed in a layered fashion. The patient was transferred to the Recovery Room in stable condition. OR Attestation - Andi Nelson MD - 06/17/2011 12:44 PM EDT Attestation: Case Date: 06/17/2011 I performed this procedure without the involvement of a resident. ANDI NELSON MD 06/17/2011 Miscellaneous - Provider, Scanning - 06/17/2011 9:40 AM EDT documented in this encounter Plan of Treatment Upcoming Encounters Date Type Specialty Care Team Description 07/14/2022 TH Visit (TeleHealth) Palliative Care Kian Zelaya APRN [facility] PALLIATIVE MEDIC [place], [place] [address] (Wo rk) 07/22/2022 TH Visit (TeleHealth) Palliative Care Benoit Lei [employer] [facility] [place] [address] Criselda Zelaya [employer] [facility] [place] [address] 08/12/2022 Office Visit Cardiology Hari Summers MD [facility] [place] [address] Kit Bonilla MD [facility] [place] [address] Pending Results Name Type Priority Associated Diagnoses Date/Ti me XR Fluoro OR c-arm Imaging Routine 1 1:00 PM EDT storage only Scheduled Orders Name Type Priority Associated Diagnoses Order S chedule XR Fluoro OR c-arm Imaging Routine Once PRN (for Radiant storage only use) for 1 Occu rrences starting 2010 until 06/17/2011 documented as of this encounter Procedures Procedure Name Priority Date/Time Associated Diagnosis Comme nts SURGICAL PATHOLOGY Routine 06/17/2011 1:06 PM Res ults for this REPORT EDT procedure are i n the results section. SPECIMEN TO Routine 06/17/2011 12:09 PM Results for this PATHOLOGY EDT procedure are i n the results section. MODIFIER METRX SYS. 06/17/2011 11:11 AM Left L4-5 HNP EDT LAMINOTOMY, 06/17/2011 11:11 AM Left L4-5 HNP DECOMPRESSION, EDT FORAMINOTOMY, LUMBAR (WRVU 13.18) documented in this encounter Results SURGICAL PATHOLOGY REPORT (06/17/2011 1:06 PM EDT) Component Value Ref Test Analysis Performed At [facility] gist Range Method Time Signature Surgical CERNER Pathology ? [facility] Report ? Provider: ?? ANDI NELSON ?? Pt. Name: ?? CARLEY ALFORD ? Acc #: ?[id number] ?Pt. MRN: ?[id number] ? Col Date: ?? 1 ? /Sex: ?1965,(45 years),Male ? Rec Date: ?? 06/17/2011 ? LOC: ?[facility] ? SURGICAL PATHOLOGY ? ---Pathologic Diagnosis--- ? Intervertebral disc, L4-5. ?Gross surgical pathology examination. ? CR-0 ? 06/17/11 ? VMS ? 06/18/11 Verified by: ? Jocelyne MCKEON, PhD, Nino palomino ? Pathologist ? (Electronic Si gnature) ? The attending pathologist whose signature appears o n this report has ? reviewed all diagnostic slides and has edited the lester ss and/or ? microscopic portion of the report in rendering the fi nal pathologic ? diagnosis. ? ---Gross Description--- ? Labeled/Fixative: ? L4-5 disc, fresh. ? Quantity/Size: ?Multiple, 4.0 x 3.8 x 1.4 c m. ? Tissue Description: ?? Dense, keyes-white, friable fra gments. ? Sections/Processing: ??No sections are submitted. ??v ms/SHB ? ---Clinical Information--- ? Specimen Submitted: ? A - L4-5 Disk ? Clinical History/Diagnosis: ? L4-5 HNP Specimen (Source) Anatomical Collection Method Collection Time Re ceived Time Location / / Volume Laterality 06/17/2011 1:06 PM EDT Andi Nelson MD PATHOLOGY/CYTOLOGY ORDERABLE S Performing Organization Address City/[facility]/ZIP [facility] [place] [address] CERMAUDE GLEZENNIUM Specimen to Pathology (surgical or derm) (06/17/2011 12:09 PM EDT) Specimen Anatomical Collection Method Collection Time Receive d Time (Source) Location / / Volume Laterality AP Specimen 06/17/2011 12:09 06/17/2011 PM EDT 12:09 PM EDT Narrative CERNER MILLENNIUM - 06/17/2011 12:09 PM EDT Specimen requisition ordered. ??Separate Pathology report to follow Andi Nelson MD PATHOLOGY/CYTOLOGY ORDERABLE S Performing Organization Address City/[facility] [place] [address] CERNER AMARISENNIUM documented in this encounter Visit Diagnoses Not on filedocumented in this encounter Administered Medications Inactive Administered Medications - up to 3 most recent administrations Medication Order MAR Action Action Date Dose Rate Site acetaminophen (TYLENOL) tablet 650 Given 06/17/2011 2:10 PM EDT 650 mg mg 650 mg, Oral, EVERY 4 HOURS PRN, Starting on Deborah 06/17/11 at 1346, Until Deborah 06/17/11 at 1741, Pain, Maximum dose of acetaminophen is 4000 mg from all sources in 24 hours., Routine fentaNYL (PF) 50 mcg/mL injection 1 dose, Starting on Deborah 06/17/11 at 1307, Until Deborah 06/17/11 at 1310, VAUGHN BOYER: Cabinet Override fentaNYL 50mcg/mL injection Given 06/17/2011 1:47 PM EDT 50 mcg 25-50 mcg, Intravenous, EVERY 5 MIN PRN, Starting on Deborah 06/17/11 at 1305, Until Deborah 06/17/11 at 1741, Pain, for breakthrough pain, Hold for respiratory rate less than 10 per minute. Maximum dose: 250 mcg over one hour., PACU Recovery, Routine Given 06/17/2011 1:42 PM EDT 50 mcg Given 06/17/2011 1:28 PM EDT 50 mcg HYDROmorphone (PF) (DILAUDID) 2 mg/mL Given 06/17/2011 2:37 PM E DT 0.4 mg injection 0.2-0.4 mg 0.2-0.4 mg, Intravenous, EVERY 5 MIN PRN, Starting on Deborah 06/17/11 at 1305, Until Deborah 06/17/11 at 1741, Pain, For moderate pain give: 0.2 mg every 5 minute prn For severe pain give: 0.4 mg every 5 minutes prn Maximum dose: 4 mg per hour Hold for respiratory rate less than 10 per minute., PACU Recovery, Routine Given 06/17/2011 2:22 PM EDT 0.4 mg Given 06/17/2011 2:10 PM EDT 0.4 mg methadone (DOLOPHINE) tablet 5 mg Given 06/17/2011 3:30 PM EDT 5 mg 5 mg, Oral, EVERY 8 HOURS SCHEDULED, First dose on Deborah 06/17/11 at 1530, Until Discontinued, Routine OXYcodone (ROXICODONE) immediate release Given 06/17/2011 2:11 P M EDT 10 mg tablet 5-10 mg 5-10 mg, Oral, EVERY 4 HOURS PRN, Starting on Deborah 06/17/11 at 1346, Until Deborah 06/17/11 at 1741, Pain, Routine documented in this encounter Active and Recently Administered Medications Times are shown in EDT. Scheduled Medication Order 06/15/2011 06/16/2011 06/17/2011 methadone (DOLOPHINE) tablet 5 mg (CANCELED) 1530 (Given - Provider: Christina Garcia RN) 5 mg, Oral, EVERY 8 HOURS SCHEDULED, Fir st dose on Deborah 06/17/11 at 1530, Until Discontinued, Routine PRN Medication Order 06/15/2011 06/16/2011 06/17/2011 acetaminophen (TYLENOL) tablet 650 mg 1410 (Given - Provider: Christina F Rowlee, RN) 650 mg, Oral, EVERY 4 HOURS PRN, Startin g Deborah 811 at 1346, Until Deborah 811 at 1741, Pain, Maximum dose of acetaminophen is 4000 mg from all sources in 24 hours., Routine bacitracin injection (COMPLETED) 1215 (Given - Provider: Andi Nelson MD - Comment: 10,000 units mixed per liter of NACL. Used throughout case as needed) ONCE PRN, 1 dose, Starting Deborah 811 a t 1215, Until Deborah 811 at 1215, Intra-operative, Routine BUpivacaine (PF) (MARCAINE) 0.5 % (5 mg/mL) injection (COMPLETED ) 1234 (Given - Provider: Andi Nelson MD) ONCE PRN, 1 dose, Starting Deborah 8/11 a t 1234, Until Deborah 811 at 1234, Intra-operative, Routine BUpivacaine-epiNEPHrine 0.25 %-1:200,000 injection (COMPLETED) 1125 (Given - Provider: Andi Nelson MD - Comment: 10 ml given ) ONCE PRN, 1 dose, Starting Deborah 8/11 a t 1125, Until Deborah 8/11 at 1125, Intra-operative, Routine ceFAZolin (ANCEF) injection (COMPLETED) 1137 (Given - Provider: Theresa Montoya) ONCE PRN, 1 dose, Starting Deborah 8/11 a t 1137, Until Deborah 8/11 at 1137, Intra-operative, Routine fentaNYL 50mcg/mL injection (CANCELED) 1310 (Given - Provider: Vaughn Boyer RN)1318 (Given - Provider: Vaughn Boyer RN)1328 (Given - Provider: Vaughn Boyer, ANA)1342 (Given - Provider: Vaughn Boyer RN)1347 (Given - Provider: Vaughn Boyer RN) 25-50 mcg, Intravenous, EVERY 5 MIN PRN, Starting Deborah 8/11 at 1305, Until Deborah 8/25/11 at 1741, Pain, for breakthrough pain, Hold for respiratory rate less than 10 per minute. Maximum dose: 250 mcg ov er one hour., Recovery (Post-Anesthesia), Routine gelatin adsorbable 100 (GELFOAM) sponge (COMPLETED) 1216 (Given - Provider: Andi Nelson MD - Comment: used throughout case as needed) ONCE PRN, 1 dose, Starting Deborah 811 a t 1216, Until Deborah 8 at 1216, Intra-operative, Routine HYDROmorphone (PF) (DILAUDID) 2 mg/mL injection 0.2-0.4 mg (CANC ELED) 1349 (Given - Provider: Christina Garcia RN)1405 (Given - Provider: Christina Garcia RN)1410 (Given - Provider: Christina Garcia RN)1422 (Given - Provider: Christina Garcia RN)1437 (Given - Provider: Christina Garcia RN) 0.2-0.4 mg, Intravenous, EVERY 5 MIN PRN , Starting Deborah 8 at 1305, Until Deobrah 8 at 1741, Pain, For moderate pain give: 0.2 mg every 5 minute prn For severe pain give: 0.4 mg every 5 minutes pr n Maximum dose: 4 mg per hour Hold for r espiratory rate less than 10 per minute., Recovery (Post-Anesthesia), Routine methylPREDNISolone sodium succinate (SOLU-MEDROL) injection (COM PLETED) 1233 (Given - Provider: Andi Nelson MD - Comment: used topically at end of case. ) ONCE PRN, 1 dose, Starting Deborah 8 a t 1233, Until Deborah 8 at 1233, Intra-operative, Routine OXYcodone (ROXICODONE) immediate release tablet 5-10 mg 1411 (Given - Provider: Christina Garcia RN) 5-10 mg, Oral, EVERY 4 HOURS PRN, Starti ng Deborah 8 at 1346, Until Deborah 8 at 1741, Pain, Routine thrombin (bovine) (THROMBIN-JMI) solution (COMPLETED) 1217 (Given - Provider: Andi Nelson MD - Comment: used throughout case as needed) ONCE PRN, Starting Deborah 8 at 1217, Intra-operative documented in this encounter Care Teams Bar Waiter/Waitress Relationship Specialty Start Date End Date Ting Gonzales APRN PCP - General 05/04/11 03/23/22 [address] [place] [address] documented as of this encounter
--- OUTSIDE RECORDS SUMMARY | 2022-07-12 08:59 | XMS_ITS | Encounter Summary ---
:1965 Author Organization [facility] [place] [address] Care Team Providers Name Role Phone Abdelrahman Gonzales APRN Primary Care Provider [phone] Encounter Details Date Type Department Care Team Description 05/25/2011 Abstract Orthopaedics at [facility] Magnolia Peterson, [place] [address] Social History Tobacco Use Types Packs/Day Years Used Date Current Every Day Smoker Cigarettes 0.8 Alcohol Use Standard Drinks/Week Comments Not Asked [...] Visit (TeleHealth) Palliative Care Kian Zelaya APRN [facility] ER PALLIATIVE MEDIC [place], [place] [address] (Wo rk) 07/22/2022 TH Visit (TeleHealth) Palliative Care Benoit Lei [facility] [place] [address] Criselda Zelaya [employer] [facility] [place] [address] 08/12/2022 Office Visit Cardiology Hari Summers MD [facility] [place] [address] Kit Bonilla MD [facility] [place] [place] [address] documented as of this encounter Visit Diagnoses Not on filedocumented in this encounter Care Teams Fashion Photographer Relationship Specialty Start Date End Date Abdelrahman Gonzales APRN PCP - General 05/04/11 03/23/22 [address] [place] [address] documented as of this encounter
--- OUTSIDE RECORDS SUMMARY | 2022-07-12 08:59 | XMS_ITS | Encounter Summary ---
:1965 Author Organization [facility] [place] [address] Care Team Providers Name Role Phone Hugo Gonzalesgracie Rogers APRN Primary Care Provider [phone] Encounter Details Date Type Department Care Team Description 03/17/2011 Orders Only Spine Center at [facility] Devonte James MD [facility] [place] [place] [address] SPINE CENTER [phone] [place], [place] [address] (Wo rk) Social History Tobacco [...] place to sleep or slept in a alf (including now)? Sex Assigned at Date Recorded Male 05/04/2022 4:12 PM EDT documented as of this encounter Plan of Treatment Upcoming Encounters Date Type Specialty Care Team Description 07/14/2022 TH Visit (TeleHealth) Palliative Care Kian Zelaya APRN [facility] ER PALLIATIVE MEDIC [place], [place] [address] (Wo rk) 07/22/2022 TH Visit (TeleHealth) Palliative Care Benoit eLi COMPUTER SYSTEMS ARCHITECT [facility] [place] [address] Criselda Zelaya COMPUTER SYSTEMS ARCHITECT [facility] [place] [address] 08/12/2022 Office Visit Cardiology Hari Summers MD [facility] [place] [address] Kit Bonilla MD [facility] [address] documented as of this encounter Procedures Procedure Name Priority Date/Time Associated Diagnosis Comme nts FILM LIBRARY Routine 03/17/2011 6:19 PM Results f or this STORAGE ONLY MR EDT procedure ar e in SPINE the results section. documented in this encounter Results FILM LIBRARY- STORAGE ONLY MR SPINE (03/17/2011 6:19 PM EDT) Specimen (Source) Anatomical Collection Method Collection Time Re ceived Time Location / / Volume Laterality 03/17/2011 6:19 PM EDT Narrative [facility] RAD - 02/27/2014 7:02 PM EDT This is a non-reportable exam. Procedure Note Isidro, Yuri - 02/27/2014Formatting of t his note might be different from the original. This is a non-reportable exam. Devonte James MD IM FILM LIBRARY ORDERABLES Performing Organization Address City/State/ZIP Code Phon e Number [facility] [address] [facility] [place] [address] documented in this encounter Visit Diagnoses Not on filedocumented in this encounter Care Teams Brancher Relationship Specialty Start Date End Date Abdelrahman Gonzales APRN PCP - General 05/04/11 03/23/22 [address] [place] [address] documented as of this encounter
--- OUTSIDE RECORDS SUMMARY | 2022-07-12 08:59 | XMS_ITS | Encounter Summary ---
:1965 Author Organization [facility] [place] [address] Care Team Providers Name Role Phone Abdelrahman Gonzales APRN Primary Care Provider [phone] Encounter Details Date Type Department Care Team Description 07/27/2011 Abstract Spine Center at [facility], Radha Langston, SREEDHAR [facility] D [facility] [address] PAIN CLINIC [phone] [place], [place] [address] (Wo rk) Social History Tobacco [...] TH Visit (TeleHealth) Palliative Care Kian Zelaya DONOR SERVICES SPECIALIST [facility] ER PALLIATIVE MEDIC [place], [place] [address] (Wo rk) 07/22/2022 TH Visit (TeleHealth) Palliative Care Benoit Lei DONOR SERVICES SPECIALIST [facility] [place] [address] Criselda Zelaya DONOR SERVICES SPECIALIST [facility] [place] [address] 08/12/2022 Office Visit Cardiology Hari Summers MD [facility] [place] [address] Kit Bonilla MD [facility] [place] [address] documented as of this encounter Visit Diagnoses Not on filedocumented in this encounter Care Teams Budget Technician Relationship Specialty Start Date End Date Abdelrahman Gonzales APRN PCP - General 05/04/11 03/23/22 [address] [place] [address] documented as of this encounter
--- OUTSIDE RECORDS SUMMARY | 2022-07-12 08:59 | XMS_ITS | Encounter Summary ---
:1965 Author Organization [facility] Address [facility] [place] [address] Care Team Providers Name Role Phone Armando Abebe MD Primary Care Provider Encounter Details Date Type Department Care Team Description 03/05/2011 Orders Only Psychiatry and Ynes Diaz, Bipolar affective Behavioral Health at (Primary Dx) [facility] [address] PSYCHIATRY DEPT [place], [place] [id number] [phone] Social History Tobacco Use Types Packs/Day Years [...] Visit (TeleHealth) Palliative Care Kian Zelaya APRN [facility] ER PALLIATIVE MEDIC [place], [place] [address] (Wo rk) 07/22/2022 TH Visit (TeleHealth) Palliative Care Benoit Lei DOOR TO DOOR SALES REPRESENTATIVE [facility] [place] [address] Criselda Zelaya DOOR TO DOOR SALES REPRESENTATIVE [facility] [place] [address] 08/12/2022 Office Visit Cardiology Hari Summers [place] [address] Kit Bonilla MD [facility] [place] [address] documented as of this encounter Visit Diagnoses Diagnosis Bipolar affective - Primary Bipolar disorder, unspecified documented in this encounter Care Teams Wood Lather Relationship Specialty Start Date End Date Armando Abebe MD PCP - General 09/15/10 05/03/11 [address] [place] [address] documented as of this encounter
--- OUTSIDE RECORDS SUMMARY | 2022-07-12 08:59 | XMS_ITS | Encounter Summary ---
:1965 Author Organization [facility] [place] [address] Care Team Providers Name Role Phone Abdelrahman Gonzales APRN Primary Care Provider Reason for Referral Surgical (Routine) - Closed Specialty Diagnoses / Procedures Referred By Contact Refer red To Contact Orthopaedic Surgery / Diagnoses Lumbar disc herniation Devonte James Zle[facility] Spine 3d Orthopaedics [facility] [place], [place] SPINE CENTER [address] [place] [address] Referral ID Status Reason Start Date Expiration Date Visits V isits Requested Authorized [id number] Closed Consult, 05/04/2011 10/31/2011 1 1 Test & Treat Consultation (Routine) - Complete - Patient Seen (External Appt Consult Notes Rcv'd) Specialty Diagnoses / Procedures Referred By Contact Refer red To Contact Diagnoses Lumbar disc herniation Devonte James MD [facility] [address] [place] [address] [place] [address] Referral ID Status Reason Start Date Expiration Date Visits V isits Requested Authorized [id number] Complete - Other 05/04/2011 10/31/2011 1 1 Patient Seen (External Appt Consult Notes Rcv'd) Reason for Visit Reason Comments Back Pain Encounter Details Date Type Department Care Team Description 05/04/2011 Office Visit Spine [facility] at [facility], Lumbar disc herniation Genny MCKEON (Primary Dx) One [facility] [address] [address] [place] SPINE CENTER [address] [place] [address] [phone] Social History Tobacco Use Types Packs/Day Years [...] Sign Reading Time Taken Comments Blood Pressure 130/86 05/04/2011 1:02 PM EDT Pulse 70 05/04/2011 1:02 PM EDT Temperature - - Respiratory Rate - - Oxygen Saturation - - Inhaled Oxygen Concentration - - Weight 90.7 kg (200 lb) 05/04/2011 1:02 PM EDT Height 180.3 cm (5' 11) 05/04/2011 1:02 PM EDT Body Mass Index 27.89 05/04/2011 1:02 PM EDT documented in this encounter Progress Notes Devonte James MD - 05/04/2011 1:25 PM EDT CC: BACK AND LEFT LEG PAINS: S: In addition to his multiyear history of back pain, over the past year he has had a gradually progressive history of left leg pain and numbness (throguh the posterolateral calf) but no weakness. PT not helpful. He is taking Methadone. On SSDI for bipolar disorder, more or less home bound. O: Affect bright. Trunk flexion easily reproduces his pain down the left leg as does SSLR. Touch sensation dysesthetic over the posterolateral calf. Power screen done well. I don't get knee jerks but ankle jerks are symmetrical. MRI from 03/03 shows larger leftward HNP at L4-5. A: Radicular syndrome with HNP. This was a counseling based encounter for 25 of the 40 minute visit focusing on appropriate diagnostic and treatment options. On the basis of this discussion, we have mutually decided to proceed as follows: PLAN: Shared medical decision making video on HNP, return for surgical consideration as requested. documented in this encounter Plan of Treatment Upcoming Encounters Date Type Specialty Care Team Description 07/14/2022 Visit (TeleHealth) Palliative Care Kian Zelaya APRN [facility] PALLIATIVE MEDIC [place], [place] [address] (Wo rk) 07/22/2022 Visit (TeleHealth) Palliative Care Benoit Lei APRN [facility] [place] [address] [facility] [place] [address] 08/12/2022 Office Visit Cardiology Hari Summers MD [facility] [place] [address] [facility] [place] [address] Scheduled Referrals Name Type Priority Associated Diagnoses Order S chedule REFERRAL TO SHARED Outpatient Referral Routine Lumbar disc Or dered: DECISION PROGRAM herniation 05/04/2011 REFERRAL TO SPINE Outpatient Referral Routine Lumbar disc Ord ered: CENTER herniation 05/04/2011 documented as of this encounter Visit Diagnoses Diagnosis Lumbar disc herniation - Primary Displacement of lumbar intervertebral di sc without myelopathy documented in this encounter Care Teams Personnel Monitor Relationship Specialty Start Date End Date Abdelrahman Gonzales APRN PCP - General 05/04/11 03/23/22 [address] [place] [address] documented as of this encounter
--- OUTSIDE RECORDS SUMMARY | 2022-07-12 08:59 | XMS_ITS | Encounter Summary ---
:1965 [place] [address] Care Team Providers Name Role Phone Abdelrahman Gonzales SREEDHAR Primary Care Provider [phone] Encounter Details Date Type Department Care Team Description 06/17/2011 Anesthesia Event Main Operating Room Jose Farris MD [facility] [place] [address] [facility] Theresa Montoya MD [facility] DR [place]ESTHESIOLOG[place] [address] [place] [address] Anesthesia Record Procedure Summary Procedure Name Responsible Anesthesia Start Anesthesia Stop Time Anesthesiologist Time LAMINOTOMYJeronimo Andreas H, MD 06/17/11 1111 06/17/11 1306 DECOMPRESSION, FORAMINOTOMY, LUMBAR (WRVU 13.18) (N/A Spine Lumbar) Events Date Time Event Comment 06/17/2011 0950 1111 Start 1306 Stop No medications on file. Agents No agents on file. Blood No blood administrations on file. Lines, Drains, and Airways Type Details Placement Removal PIV 06/17/11 (by Porsche Mike, 06/17/11 0929 by Jorgito, 06/17/11 1521 by ANA Garcia); 0929; 06/17/11; 1521 ANA Beltran RN documented in this encounter Social History [...] encounter OR Notes Anesthesia Postprocedure Evaluation - Theresa Montoya - 06/17/2011 2:36 PM EDT Patient: Iban Palomares Procedure(s) Performed: LAMINOTOMY, DECOMPRESSION, FORAMINOTOMY, LUMBAR; MODIFIER METRX SYS. Patient location: Pt is in Same Day recovery at present. Post-op pain: Pt states that his post-operative pain is 7/10. His pre-operative pain level varies from 5-8/10. Pt appears satisfied with the level of control at present, and is receiving IV fentanyl in50 mcg increments, which is providing relief per patient. Post-op nausea: Pt denies post-operative nausea, and is tolerating po without difficulty. Last Vitals: Filed Vitals: 06/17/11 1430 BP: 144/91 Pulse: 75 Temp: Resp: 20 Post-op cardiovascular and respiratory status: Pt is hemodynamically stable, at baseline, and is breathing room air. Level of consciousness: Pt is awake, alert, and oriented. Complications: Pt denies post-operative complications, and appears to have tolerated the procedure well. Fluid Status: Pt appears isovolemic at present. Anesthesia Preprocedure Evaluation - Jose Decker MD - 06/17/2011 8:47 AM EDT Anesthesia Evaluation Patient summary reviewed and Nursing notes reviewed No hx of anesthetic complications Airway Dental Pulmonary - normal exam Cardiovascular - normal exam Neuro/Psych (+) psychiatric history (Pt has a h/o tobacco abuse. ) GI/Hepatic/Renal (+) hepatitis (Pt reportedly asymptomatic according to 2006 records.) C, Comments: Pt has a h/o alcohol abuse, and supposedly stopped drinking in 2006. Endo/Other Comments: Pt has a h/o two forearm surgeries. Pt has a h/o chronic back pain and lower extremity radiculopathy with MRI suggesting disc herniationat L4-L5. Abdominal Anesthesia Plan ASA 2 General with intravenous induction Pt is a 45 yo male with a PMHx of tobacco abuse, asymptomatic hepatitis C, and chronic back pain with disc herniation at L4/L5 scheduled for discectomy. Pt. Takes 5mg methadone qd for last 2 months for back pain. Discussed plan for general endotracheal anesthesia in the prone position. Risks were discussed, including that of blindness, and all questions and concerns were addressed. Consent was obtained and placed in the patient's chart. Anesthetic plan and risks discussed with patient and spouse. Use of blood products discussed with patient. Plan discussed with attending and resident. documented in this encounter Plan of Treatment Upcoming Encounters Date Type Specialty Care Team Description 07/14/2022 TH Visit (TeleHealth) Palliative Care Kian Zelaya TEXTILE COLORIST [facility] ER PALLIATIVE MEDIC [place], [place] [address] (Wo rk) 07/22/2022 TH Visit (TeleHealth) Palliative Care Benoit Lei [facility] PALLIATIVE [place] [address] Criselda Zelaya TEXTILE COLORIST [facility] PALLIATIVE [place] [address] 08/12/2022 Office Visit Cardiology Hari Summers MD [facility] [place] [address] Kit Bonilla MD [facility] [place] [address] documented as of this encounter Visit Diagnoses Not on filedocumented in this encounter Care Teams Plan Manager Relationship Specialty Start Date End Date Abdelrahman Gonzales APRN PCP - General 05/04/11 03/23/22 [address] [place] [address] documented as of this encounter
--- OUTSIDE RECORDS SUMMARY | 2022-07-12 08:59 | XMS_ITS | Encounter Summary ---
:1965 Author Organization [facility] [place] [address] Care Team Providers Name Role Phone Abdelrahman Gonzales APRN Primary Care Provider [phone] Reason for Visit Reason Comments Back Pain radiates to LEFT hip butt an d leg Encounter Details Date Type Department Care Team Description 05/26/2011 Office Visit Spine Center at [facility], Rolando Leblanc, Lumbar disc herniation Genny MCKEON (Primary Dx) Count includes the [facility] [address] [place], [place] NEUROSURGERY [address] [place] [address] [phone] Social History Tobacco Use Types Packs/Day Years [...] Sign Reading Time Taken Comments Blood Pressure 120/80 05/26/2011 8:51 AM EDT Pulse 66 05/26/2011 8:51 AM EDT Temperature - - Respiratory Rate - - Oxygen Saturation - - Inhaled Oxygen Concentration - - Weight 90.7 kg (200 lb) 05/26/2011 8:51 AM EDT Height 180.3 cm (5' 11) 05/26/2011 8:51 AM EDT Body Mass Index 27.89 05/26/2011 8:51 AM EDT documented in this encounter Progress Notes Rolando Nelson MD - 05/26/2011 9:23 AM EDT I have just seen Mr. Palomares in the Spine Center at the request of Devonte James M.D. for evaluation of a herniated disk. Mr. Palomares is a 45-year-old male with a history of chronic low back pain but superimposed left lower extremity pain that has come on more recently. He has tried physical therapy and oral medications. Because of his chronic back pain he is taking methadone daily, which does not seem to really eradicate his new radicular symptoms. He has seen the video on lumbar herniated disks and requested a surgical evaluation. He has had a past surgical history pertinent for hernia repairs. He has no cardiovascular or pulmonary disease that he notes. He does have a psychiatric history with bipolar features. His MRI shows focal disk herniation at L4-L5 that is asymmetric to the left side. This causes nerve root compression of the exiting L5 nerve root. We talked about options, but Mr. Palomares is fairly set that he would like to proceed with surgery. I discussed risks, benefits, and alternatives and clearly informed him that he has other alternatives such as epidural steroid injections, etc. However, he would like to proceed with surgery. So we will contact him in the near future to set this up. The entirety of this 15-minute visit was spent in [id number] consultation reviewing his MRI and discussing treatment options. documented in this encounter Plan of Treatment Upcoming Encounters Date Type Specialty Care Team Description 07/14/2022 TH Visit (TeleHealth) Palliative Care Kian Zelaya APRN [facility] DR PALLIATIVE MEDIC [place], [place] [address] (Wo rk) 07/22/2022 TH Visit (TeleHealth) Palliative Care Benoit Lei [facility] [place] [address] Criselda Zelaya [facility] [place] [address] 08/12/2022 Office Visit Cardiology Hari Summers MD [facility] [place] [address] Kit Bonilla MD [facility] [place] [address] documented as of this encounter Visit Diagnoses Diagnosis Lumbar disc herniation - Primary Displacement of lumbar intervertebral di sc without myelopathy documented in this encounter Care Teams Reworker Relationship Specialty Start Date End Date Abdelrahman Gonzales APRN PCP - General 05/04/11 03/23/22 [address] [place] [address] documented as of this encounter
--- OUTSIDE RECORDS SUMMARY | 2022-07-12 08:59 | XMS_ITS | Encounter Summary ---
:1965 Author Organization [facility] [place] [address] Care Team Providers Name Role Phone Armando Abebe MD Primary Care Provider Reason for Visit Reason Onset Date Comments Depression 03/09/2009 Encounter Details Date Type Department Care Team Description 03/09/2011 Telephone Psychiatry and Behavioral Radha Lemus, GIFT CONSULTANT Depression Health at [facility] Chrissy arellano [place] [address] [place] [address] Social History Tobacco Use Types Packs/Day Years [...] Telephone Encounter - Radha Lemus MSW - 03/09/2011 3:09 PM EDT This lead technical writer called pt's home phone number to schedule a crisis evaluation in psychiatry dept, per request of Dr. Ynes Diaz. Woman who answered phone explained that pt no longer has this phone number and she does not know his new phone number. There is no other phone contact information available. documented in this encounter Plan of Treatment Upcoming Encounters Date Type Specialty Care Team Description 07/14/2022 TH Visit (TeleHealth) Palliative Care Kian Zelaya SHIPS EQUIPMENT ENGINEER [facility] ER PALLIATIVE MEDIC [place], [place] [address] (Wo rk) 07/22/2022 TH Visit (TeleHealth) Palliative Care Benoit Lei SHIPS EQUIPMENT ENGINEER [facility] [place] [address] Criselda Zelaya SHIPS EQUIPMENT ENGINEER [facility] [place] [address] 08/12/2022 Office Visit Cardiology Hari Summers MD [facility] [place] [address] Kit Bonilla MD [facility] [place] [address] documented as of this encounter Visit Diagnoses Not on filedocumented in this encounter Care Teams Logger All Round Relationship Specialty Start Date End Date Armando Abebe MD PCP - General 09/15/10 05/03/11 8 [place] [address] documented as of this encounter
--- OUTSIDE RECORDS SUMMARY | 2022-07-12 08:59 | XMS_ITS | Encounter Summary ---
:1965 Author Organization [facility] [place] [address] Care Team Providers Name Role Phone Ting Gonzales APRN Primary Care Provider [phone] Encounter Details Date Type Department Care Team Description 06/17/2011 Surgery Main Operating Room Andi Nelson LA MINELLI, [facility] DECOMPRESSION, Hospital [facility] FORAMINOTOMY, LUMBAR [facility] (WRVU 13.18) [facility] [place] [address] [place], [place] [id number] [phone] (Wo rk) Social History Tobacco Use Types [...] have additional questionsor concerns, please call. Patient InstructionsMaría Workman MD - 06/17/2011 1:50 PM EDT Discharge [...] may be used if needed and are vaib-izf-fkpqztf (OTC) medications available at most localpharmacies. Prunes or prune juice, taken daily, can [...] Nurse: Hanny Wade Inpatient Nurses: Neurosurgical Resident Strategy Specialist (after 5pm or before 8am): Neurosurgery offices (weekdays between 8am-5pm): Dr. Martin: Dr. Leiva: Dr. Vick: Dr. Nelson: Dr. Lemus: Cristela Schultz, Nurse Practitioner: Bishop Lewis, Physician Director Child: Rebekah Hernandez, Physician Director Child Letitia Dye, Nurse Practitioner: Your surgeon may not be Strategy Specialist, especially during the night or on weekends, [...] Nelson MD - 06/17/2011 12:45 PM EDT [facility] [place] Patient Name: Carley Alford : [id number] MR#: [id number] Case Date: 06/17/2011 Surgeon: Surgeon(s) and Role: [...] resident. ANDI NELSON MD 06/17/2011 Miscellaneous - [facility], [facility] - 06/17/2011 9:40 AM EDT documented in this encounter Plan of Treatment Upcoming Encounters Date Type Specialty Care Team Description 07/14/2022 TH Visit (TeleHealth) Palliative Care Kian Zelaya APRN [facility] ER PALLIATIVE MEDIC [place], [place] [address] (Wo rk) 07/22/2022 TH Visit (TeleHealth) Palliative Care Benoit Lei [facility] [place] [address] Criselda Zelaya PUBLIC HOUSING INTERVIEWER [facility] [place] [address] 08/12/2022 Office Visit Cardiology Hari Summers MD [facility] [place] [address] Kit Bonilla MD [facility] [place] [address] Pending Results Name Type Priority Associated Diagnoses [...] Component Value Ref Test Analysis Performed At [facility] Range Method Time Signature Surgical CERNER Pathology ? [facility] Report ? Provider: ?? ANDI NELSON ?? Pt. Name: ?? CARLEY ALFORD ? Acc #: ?[id number] ?Pt. MRN: ?[id number] ? Col Date: ?? 1 ? /Sex: [...] Organization Address City/State/ZIP Code Phon e Number [address] YULI HARDEN Specimen to Pathology (surgical or derm) (06/17/2011 12:09 PM EDT) Specimen Anatomical Collection Method Collection Time Receive d Time (Source) Location / / Volume Laterality AP Specimen 06/17/2011 12:09 06/17/2011 PM EDT 12:09 PM EDT Narrative CERNER AMARISENNIUM - 06/17/2011 12:09 PM EDT Specimen requisition ordered. ??Separate Pathology report to follow Andi Nelson MD PATHOLOGY/CYTOLOGY ORDERABLE S Performing Organization Address City/[facility]/ZIP Code Phon e Number [address] [employer]ULI [employer] documented in this encounter Visit Diagnoses Not [...] sources in 24 hours., Routine bacitracin injection Given 06/17/2011 12:15 PM 10,000 Units 19- Surg ical Site ONCE PRN, 1 dose, Starting EDT on Deborah 06/17/11 at 1215, Until Deborah 06/17/11 at 1215, Intra-Operative (Intra-Procedure), Routine BUpivacaine (PF) (MARCAINE) 0.5 Given 06/17/2011 12:34 PM 5 mLs 19- Surgical Site % (5 mg/mL) injection EDT ONCE PRN, 1 dose, Starting on Deborha 06/17/11 at 1234, Until Deborah 06/17/11 at 1234, Intra-Operative (Intra-Procedure), Routine BUpivacaine-epiNEPHrine 0.25 Given 06/17/2011 11:25 AM 10 mg 19- Surgical Site %-1:200,000 injection EDT ONCE PRN, 1 dose, Starting on Deborah 06/17/11 at 1125, Until Deborah 06/17/11 at 1125, Intra-Operative (Intra-Procedure), Routine ceFAZolin (ANCEF) injection Given 06/17/2011 11:37 AM EDT 2 g ONCE PRN, 1 dose, Starting on Deborah 06/17/11 at 1137, Until Deborah 06/17/11 at 1137, Intra-Operative (Intra-Procedure), Routine fentaNYL (PF) 50 mcg/mL injection 1 [...] Given 06/17/2011 1:28 PM EDT 50 mcg gelatin adsorbable 100 Given 06/17/2011 12:16 PM 1 each 19- Surgical Site (GELFOAM) sponge EDT ONCE PRN, 1 dose, Starting on Deborah 06/17/11 at 1216, Until Deborah 06/17/11 at 1216, Intra-Operative (Intra-Procedure), Routine HYDROmorphone (PF) (DILAUDID) 2 mg/mL Given 06/17/2011 [...] Deborah 06/17/11 at 1530, Until Discontinued, Routine methylPREDNISolone sodium Given 06/17/2011 12:33 PM 40 mg 19- Surgical Site succinate (SOLU-MEDROL) EDT injection ONCE PRN, 1 dose, Starting on Deborah 06/17/11 at 1233, Until Deborah 06/17/11 at 1233, Intra-Operative (Intra-Procedure), Routine OXYcodone (ROXICODONE) immediate release Given 06/17/2011 2:11 P M EDT 10 mg tablet 5-10 mg 5-10 mg, Oral, EVERY 4 HOURS PRN, Starting on Deborah 06/17/11 at 1346, Until Deborah 06/17/11 at 1741, Pain, Routine thrombin (bovine) Given 06/17/2011 12:17 PM 5,000 Units 19- Surgical Site (THROMBIN-JMI) solution EDT ONCE PRN, Starting on Deborah 06/17/11 at 1217, 1 dose, Until Deborah 06/17/11 at 1217, Intra-Operative (Intra-Procedure) documented in this encounter Active and Recently Administered Medications Times are shown in EDT. Scheduled Medication Order 06/15/2011 06/16/2011 06/17/2011 methadone (DOLOPHINE) tablet 5 mg (CANCELED) 1530 (Given - Provider: Christina Garcia, ANA) 5 mg, Oral, EVERY 8 HOURS SCHEDULED, Fir st dose on Deborah 06/17/11 at 1530, Until Discontinued, Routine PRN Medication Order 06/15/2011 06/16/2011 06/17/2011 acetaminophen (TYLENOL) tablet 650 mg 1410 (Given - Provider: Christina Garcia, ANA) 650 mg, Oral, EVERY 4 HOURS PRN, Startin g Deborah 8 at 1346, Until Deborah 8 at 1741, Pain, Maximum dose of acetaminophen [...] MD) ONCE PRN, 1 dose, Starting Deborah 8 a t 1234, Until Deborah 811 at 1234, Intra-operative, Routine BUpivacaine-epiNEPHrine 0.25 %-1:200,000 injection (COMPLETED) 1125 (Given - Provider: Andi Nelson MD - Comment: 10 ml given ) ONCE PRN, 1 dose, Starting Deborah 8 a t 1125, Until Deborah 8 at 1125, Intra-operative, Routine ceFAZolin (ANCEF) injection (COMPLETED) 1137 (Given - Provider: Theresa Montoya) ONCE PRN, 1 dose, Starting Deborah 8 a t 1137, Until Deborah 8 at 1137, Intra-operative, Routine fentaNYL 50mcg/mL injection (CANCELED) 1310 (Given - Provider: Vaughn Boyer RN)1318 (Given - Provider: Vaughn Boyer RN)1328 (Given - Provider: Vaughn Boyer, ANA)1342 (Given - Provider: Vaughn Boyer RN)1347 (Given - Provider: Vuaghn Boyer RN) 25-50 mcg, Intravenous, EVERY 5 MIN PRN, Starting Deborah 811 at 1305, Until Deborah 811 at 1741, Pain, for breakthrough pain, Hold [...] , Starting Deborah 8 at 1305, Until Deborah 8 at 1741, Pain, For moderate pain [...] Deborah 8 a t 1233, Until Deborah 811 at 1233, Intra-operative, Routine OXYcodone (ROXICODONE) immediate release tablet 5-10 mg 1411 (Given - Provider: Christina Garcia RN) 5-10 mg, Oral, EVERY 4 HOURS PRN, Starti ng Deborah 8/11 at 1346, Until Deborah 811 at 1741, Pain, Routine thrombin (bovine) (THROMBIN-JMI) solution (COMPLETED) 1217 (Given - Provider: Andi Nelson MD - Comment: used throughout case as needed) ONCE PRN, Starting Deborah 06/17/11 at 1217, Intra-operative documented in this encounter Care Teams Operations Intelligence Superintendent Relationship Specialty Start Date End Date Ting Gonzales APRN PCP - General 05/04/11 03/23/22 [address] [place] [address] documented as of this encounter
--- OUTSIDE RECORDS SUMMARY | 2022-07-12 08:59 | XMS_ITS | Encounter Summary ---
:1965 Author Organization [facility] [place] [address] Care Team Providers Name Role Phone Hugo Gonzalesgracie Rogers APRN Primary Care Provider [phone] Encounter Details Date Type Department Care Team Description 12/07/2011 Abstract [facility] Rolando Nelson MD [facility] D [facility] [place] [address] NEUROSURGERY [phone] [place], [place] [address] (Wo rk) Social History Tobacco Use Types Packs/Day Years Used Date Current Every Day Smoker Cigarettes 0.8 28 Comments: 6 cigs daily Alcohol Use Standard Drinks/Week Comments Not Asked [...] TH Visit (TeleHealth) Palliative Care Kian Zelaya DIVIDEND CLERK [facility] ER DR PALLIATIVE MEDIC [place], [place] [address] (Wo rk) 07/22/2022 TH Visit (TeleHealth) Palliative Care Benoit Lei [facility] [place] [address] [facility] [place] [address] 08/12/2022 Office Visit Cardiology Hari Summers MD [facility] [place] [address] Kit Bonilla MD [facility] [place] [address] documented as of this encounter Visit Diagnoses Not on filedocumented in this encounter Care Teams Med Spec Relationship Specialty Start Date End Date Abdelrahman Gonzales APRN PCP - General 05/04/11 03/23/22 [address] [place] [address] (work) documented as of this encounter
--- OUTSIDE RECORDS SUMMARY | 2022-07-12 08:59 | XMS_ITS | Encounter Summary ---
:1965 Author Organization [facility] [place] [address] Care Team Providers Name Role Phone Armando Abebe MD Primary Care Provider Reason for Visit Reason Onset Date Comments Depression 03/17/2011 Encounter Details Date Type Department Care Team Description 03/17/2011 Telephone Psychiatry and Behavioral Radha Lemus, SALES REPRESENTATIVE [employer] [facility] Chrissy arellano [place] [address] [place] [address] Social History Tobacco Use Types Packs/Day Years [...] this encounter Miscellaneous Notes Telephone Encounter - Ynes Diaz MD - 03/25/2011 9:43 AM EDT Message left for Dr. Burris on his private voicemail at [facility] regarding patient no-show and our inability to contact him. Also, did not present for lithium level. Awaiting contact from patient as detailed by Radha Lemus, [facility]. Telephone Encounter - Radha Lemus MSW - 03/17/2011 10:42 AM EDT This medical underwriter called new pt home phone number ([phone]) provided by [facility]. Person who answered referred this medical underwriter to Jaja Palomares at work phone number [phone]. Ms. Palomares states that pt does not live at the home phone number any longer but she is happy to accept phone messagesfor him as he does not have his own phone. Ms. Palomares adds that pt is having an MRI done today, explaining why he missed this morning's scheduled appt for psychiatric follow-up at [facility]. Ms. Palomares offered to pass along this medical underwriter's name and phone number [phone], requesting that pt call to reschedule. documented in this encounter Plan of Treatment Upcoming Encounters Date Type Specialty Care Team Description 07/14/2022 TH Visit (TeleHealth) Palliative Care Kian Zelaya APRN [facility] ER PALLIATIVE MEDIC [place], [place] [address] (Wo rk) 07/22/2022 TH Visit (TeleHealth) Palliative Care Benoit Lei [facility] [place] [address] Criselda Zelaya [facility] [place] [address] 08/12/2022 Office Visit Cardiology Hari Summers MD [facility] [place] [address] Kit Bonilla MD [facility] [place] [address] documented as of this encounter Visit Diagnoses Not on filedocumented in this encounter Care Teams Guard Driver Relationship Specialty Start Date End Date Armando Abebe MD PCP - General 09/15/10 05/03/11 [address] [place] [address] documented as of this encounter
== END 2022-07-12 08:46 | disposition home or self-care (01) ==
LOC: LBO 08:51
PROVIDERS: PCP Family Medicine; Visit Provider Internal Medicine Medical Oncology
DX: C34.12 Malignant neoplasm of upper lobe, left bronchus or lung (principal); Z79.899 Other long term (current) drug therapy; F19.90 Other psychoactive substance use, unspecified, uncomplicated
CPT/HCPCS: 36415; 80053; 80307; 83735; 84439; 84443; 85025

== ENCOUNTER 2022-08-02 03:01 | Outpatient (CLI) | payer MEDICARE, SELFPAY ==
[2022-08-02 08:40] LABS: Abs Immature Grans 0.03 10^3/uL (0.0-0.06); Absolute Basophil Count 0.03 10^3/uL (0.0-0.2); Absolute Eosinophil Count 0.28 10^3/uL (0.0-0.7); Absolute Lymphocyte Count 1.37 10^3/uL (1.2-3.4); Absolute Monocyte Count 1.32 10^3/uL (0.1-0.8); Basophils % 0.4; HCT 32.2 % (40.0-50.0); HGB 10.8 g/dL (13.5-17.5); Immature Grans % 0.4; Lymphocytes % 19.8; MCH 32.2 pg (27.0-33.0); MCHC 33.5 % (32.0-36.0); MCV 96 fL (80-95); MPV 9.4 fL (8.0-11.0); Neutrophils % 56.4; Platelet Count 249 10^3/uL (130-400); RBC 3.35 10^6/uL (4.36-5.78); RDW 17.2 % (11.8-14.1); RDW-SD 60.7 fL; WBC 6.93 10^3/uL (4.4-10.8)
[2022-08-02 09:01] LABS: ALT 49 U/L (16-63); AST 47 U/L (15-37); Albumin 3.4 g/dL (3.4-5.0); Alkaline Phosphatase 80 U/L (46-116); Anion Gap 4.3 mmol/L (3-11); BUN 8 mg/dL (7-18); Bilirubin, Total 0.2 mg/dL (0.2-1.0); CO2 30.7 mmol/L (21.0-32.0); CREATININE 0.7 mg/dL (0.70-1.30); Chloride 102 mmol/L (98-107); FREE T4 0.96 ng/dL (0.76-1.46); Glucose 124 mg/dL (74-106); Magnesium 1.4 mg/dL (1.8-2.4); Sodium 137 mmol/L (136-145); TSH 0.85 uIU/mL (0.36-3.74); Total Protein 7.6 g/dL (6.4-8.2)
== END 2022-08-02 03:02 | disposition home or self-care (01) ==
LOC: LBO 03:01
PROVIDERS: PCP Family Medicine; Visit Provider Internal Medicine Medical Oncology
DX: C34.12 Malignant neoplasm of upper lobe, left bronchus or lung (principal); C79.51 Secondary malignant neoplasm of bone; Z79.899 Other long term (current) drug therapy
CPT/HCPCS: 36415; 80053; 83735; 84439; 84443; 85025

== ENCOUNTER 2022-08-23 03:21 | Outpatient (CLI) | payer MEDICARE, SELFPAY ==
[2022-08-23 08:20] LABS: Abs Immature Grans 0.09 10^3/uL (0.0-0.06); Absolute Basophil Count 0.02 10^3/uL (0.0-0.2); Absolute Eosinophil Count 0.11 10^3/uL (0.0-0.7); Absolute Lymphocyte Count 1.83 10^3/uL (1.2-3.4); Absolute Monocyte Count 1.16 10^3/uL (0.1-0.8); Absolute Neutrophil Count 3.08 10^3/uL (1.2-6.7); Basophils % 0.3; Eosinophils % 1.7; HGB 11.9 g/dL (13.5-17.5); Immature Grans % 1.4; Lymphocytes % 29.1; MCH 33.3 pg (27.0-33.0); MCV 95 fL (80-95); MPV 9.5 fL (8.0-11.0); Monocytes % 18.4; Neutrophils % 49.1; Platelet Count 344 10^3/uL (130-400); RBC 3.57 10^6/uL (4.36-5.78); RDW 16.5 % (11.8-14.1); RDW-SD 57.4 fL; WBC 6.29 10^3/uL (4.4-10.8)
[2022-08-23 08:50] LABS: ALT 48 U/L (16-63); AST 40 U/L (15-37); Albumin 3.6 g/dL (3.4-5.0); Alkaline Phosphatase 85 U/L (46-116); Anion Gap 7.3 mmol/L (3-11); BUN 26 mg/dL (7-18); Bilirubin, Total 0.3 mg/dL (0.2-1.0); CO2 28.7 mmol/L (21.0-32.0); CREATININE 0.8 mg/dL (0.70-1.30); Calcium 9.3 mg/dL (8.5-10.1); Chloride 104 mmol/L (98-107); Estimated GFR 105.17 (mL/min/1.73m2); Glucose 109 mg/dL (74-106); Magnesium 2.1 mg/dL (1.8-2.4); Potassium 4.1 mmol/L (3.5-5.1); Sodium 140 mmol/L (136-145); TSH 0.95 uIU/mL (0.36-3.74); Total Protein 7.8 g/dL (6.4-8.2)
== END 2022-08-23 03:22 | disposition home or self-care (01) ==
LOC: LBO 03:21
PROVIDERS: PCP Family Medicine; Visit Provider Internal Medicine Medical Oncology
DX: C34.12 Malignant neoplasm of upper lobe, left bronchus or lung (principal); Z79.899 Other long term (current) drug therapy; C79.51 Secondary malignant neoplasm of bone
CPT/HCPCS: 36415; 80053; 83735; 84439; 84443; 85025

== ENCOUNTER 2022-09-13 02:49 | Outpatient (CLI) | payer MEDICARE, SELFPAY ==
[2022-09-13 09:03] LABS: Abs Immature Grans 0.01 10^3/uL (0.0-0.06); Absolute Basophil Count 0.01 10^3/uL (0.0-0.2); Absolute Eosinophil Count 0.34 10^3/uL (0.0-0.7); Absolute Lymphocyte Count 1.22 10^3/uL (1.2-3.4); Absolute Neutrophil Count 2.03 10^3/uL (1.2-6.7); Basophils % 0.2; Eosinophils % 7.1; HCT 32.5 % (40.0-50.0); HGB 11.1 g/dL (13.5-17.5); Immature Grans % 0.2; Lymphocytes % 25.4; MCH 33.4 pg (27.0-33.0); MCHC 34.2 % (32.0-36.0); MCV 98 fL (80-95); MPV 9.8 fL (8.0-11.0); Monocytes % 24.9; Neutrophils % 42.2; Platelet Count 215 10^3/uL (130-400); RBC 3.32 10^6/uL (4.36-5.78); RDW 16.1 % (11.8-14.1); RDW-SD 58.1 fL; WBC 4.81 10^3/uL (4.4-10.8)
[2022-09-13 09:33] LABS: ALT 83 U/L (16-63); AST 96 U/L (15-37); Albumin 3.3 g/dL (3.4-5.0); Alkaline Phosphatase 83 U/L (46-116); Anion Gap 4.4 mmol/L (3-11); BUN 13 mg/dL (7-18); Bilirubin, Total 0.3 mg/dL (0.2-1.0); CO2 30.6 mmol/L (21.0-32.0); CREATININE 0.8 mg/dL (0.70-1.30); Calcium 8.8 mg/dL (8.5-10.1); Chloride 105 mmol/L (98-107); Estimated GFR 105.17 (mL/min/1.73m2); FREE T4 0.94 ng/dL (0.76-1.46); Glucose 97 mg/dL (74-106); Magnesium 1.8 mg/dL (1.8-2.4); Potassium 4.1 mmol/L (3.5-5.1); Sodium 140 mmol/L (136-145); TSH 0.98 uIU/mL (0.36-3.74); Total Protein 7.1 g/dL (6.4-8.2)
== END 2022-09-13 02:50 | disposition home or self-care (01) ==
LOC: LBO 02:49
PROVIDERS: PCP Family Medicine; Visit Provider Internal Medicine Medical Oncology
DX: C34.12 Malignant neoplasm of upper lobe, left bronchus or lung (principal); Z79.899 Other long term (current) drug therapy; C79.51 Secondary malignant neoplasm of bone
CPT/HCPCS: 36415; 80053; 83735; 84439; 84443; 85025

== ENCOUNTER 2022-10-04 03:22 | Outpatient (CLI) | payer MEDICARE, SELFPAY ==
[2022-10-04 09:17] LABS: Abs Immature Grans 0.01 10^3/uL (0.0-0.06); Absolute Basophil Count 0.02 10^3/uL (0.0-0.2); Absolute Eosinophil Count 0.26 10^3/uL (0.0-0.7); Absolute Lymphocyte Count 0.98 10^3/uL (1.2-3.4); Absolute Monocyte Count 0.96 10^3/uL (0.1-0.8); Absolute Neutrophil Count 1.88 10^3/uL (1.2-6.7); Basophils % 0.5; Eosinophils % 6.3; HCT 34.3 % (40.0-50.0); HGB 11.9 g/dL (13.5-17.5); Immature Grans % 0.2; Lymphocytes % 23.8; MCH 33.7 pg (27.0-33.0); MCHC 34.7 % (32.0-36.0); MCV 97 fL (80-95); MPV 10.4 fL (8.0-11.0); Monocytes % 23.4; Neutrophils % 45.8; Platelet Count 169 10^3/uL (130-400); RBC 3.53 10^6/uL (4.36-5.78); RDW 15.8 % (11.8-14.1); RDW-SD 56.1 fL; WBC 4.11 10^3/uL (4.4-10.8)
[2022-10-04 09:42] LABS: ALT 77 U/L (16-63); AST 91 U/L (15-37); Albumin 3.4 g/dL (3.4-5.0); Alkaline Phosphatase 84 U/L (46-116); Anion Gap 5.9 mmol/L (3-11); BUN 13 mg/dL (7-18); Bilirubin, Total 0.2 mg/dL (0.2-1.0); CO2 30.1 mmol/L (21.0-32.0); CREATININE 0.8 mg/dL (0.70-1.30); Calcium 8.9 mg/dL (8.5-10.1); Chloride 100 mmol/L (98-107); Estimated GFR 105.17 (mL/min/1.73m2); FREE T4 0.89 ng/dL (0.76-1.46); Glucose 144 mg/dL (74-106); Magnesium 1.7 mg/dL (1.8-2.4); Potassium 4.1 mmol/L (3.5-5.1); Sodium 136 mmol/L (136-145); TSH 2.62 uIU/mL (0.36-3.74); Total Protein 7.3 g/dL (6.4-8.2)
== END 2022-10-04 03:23 | disposition home or self-care (01) ==
LOC: LBO 03:22
PROVIDERS: PCP Family Medicine; Visit Provider Internal Medicine Medical Oncology
DX: C34.12 Malignant neoplasm of upper lobe, left bronchus or lung (principal); C79.51 Secondary malignant neoplasm of bone; Z79.899 Other long term (current) drug therapy
CPT/HCPCS: 36415; 80053; 83735; 84439; 84443; 85025

== ENCOUNTER 2022-11-01 03:23 | Outpatient (CLI) | payer MEDICARE, SELFPAY ==
[2022-11-01 09:46] LABS: Abs Immature Grans 0.02 10^3/uL (0.0-0.06); Absolute Basophil Count 0.03 10^3/uL (0.0-0.2); Absolute Eosinophil Count 0.36 10^3/uL (0.0-0.7); Absolute Lymphocyte Count 1.36 10^3/uL (1.2-3.4); Absolute Monocyte Count 1.36 10^3/uL (0.1-0.8); Absolute Neutrophil Count 4.41 10^3/uL (1.2-6.7); Basophils % 0.4; Eosinophils % 4.8; HCT 38.8 % (40.0-50.0); HGB 13.4 g/dL (13.5-17.5); Immature Grans % 0.3; MCHC 34.5 % (32.0-36.0); MCV 99 fL (80-95); MPV 10.4 fL (8.0-11.0); Neutrophils % 58.5; Platelet Count 161 10^3/uL (130-400); RBC 3.94 10^6/uL (4.36-5.78); RDW 14.5 % (11.8-14.1); RDW-SD 52.9 fL; WBC 7.54 10^3/uL (4.4-10.8)
[2022-11-01 10:13] LABS: ALT 93 U/L (16-63); AST 93 U/L (15-37); Albumin 3.7 g/dL (3.4-5.0); Alkaline Phosphatase 111 U/L (46-116); Anion Gap 4.9 mmol/L (3-11); BUN 14 mg/dL (7-18); Bilirubin, Total 0.4 mg/dL (0.2-1.0); CO2 33.1 mmol/L (21.0-32.0); CREATININE 0.8 mg/dL (0.70-1.30); Calcium 8.8 mg/dL (8.5-10.1); Chloride 103 mmol/L (98-107); Estimated GFR 105.17 (mL/min/1.73m2); FREE T4 0.86 ng/dL (0.76-1.46); Glucose 93 mg/dL (74-106); Potassium 4.1 mmol/L (3.5-5.1); Sodium 141 mmol/L (136-145); TSH 2.71 uIU/mL (0.36-3.74)
== END 2022-11-01 03:24 | disposition home or self-care (01) ==
LOC: LBO 03:23
PROVIDERS: Internal Medicine Medical Oncology; PCP Family Medicine; Visit Provider Internal Medicine
DX: Z79.899 Other long term (current) drug therapy (principal); C34.12 Malignant neoplasm of upper lobe, left bronchus or lung
CPT/HCPCS: 36415; 80053; 83735; 84439; 84443; 85025

== ENCOUNTER 2022-11-22 15:15 | Outpatient (CLI) | payer MEDICARE, SELFPAY ==
[2022-11-22 10:18] LABS: Abs Immature Grans 0.03 10^3/uL (0.0-0.06); Absolute Basophil Count 0.02 10^3/uL (0.0-0.2); Absolute Eosinophil Count 0.13 10^3/uL (0.0-0.7); Absolute Lymphocyte Count 0.94 10^3/uL (1.2-3.4); Absolute Monocyte Count 0.64 10^3/uL (0.1-0.8); Absolute Neutrophil Count 4.34 10^3/uL (1.2-6.7); Basophils % 0.3; Eosinophils % 2.1; HCT 41.5 % (40.0-50.0); HGB 14.2 g/dL (13.5-17.5); Immature Grans % 0.5; Lymphocytes % 15.4; MCH 33.2 pg (27.0-33.0); MCHC 34.2 % (32.0-36.0); MCV 97 fL (80-95); MPV 10.1 fL (8.0-11.0); Monocytes % 10.5; Neutrophils % 71.2; Platelet Count 214 10^3/uL (130-400); RBC 4.28 10^6/uL (4.36-5.78); RDW 13.2 % (11.8-14.1); RDW-SD 47.7 fL
[2022-11-22 10:44] LABS: ALT 100 U/L (16-63); AST 90 U/L (15-37); Alkaline Phosphatase 100 U/L (46-116); Anion Gap 6.4 mmol/L (3-11); BUN 18 mg/dL (7-18); Bilirubin, Total 0.4 mg/dL (0.2-1.0); CO2 28.6 mmol/L (21.0-32.0); Calcium 9.2 mg/dL (8.5-10.1); Chloride 105 mmol/L (98-107); Estimated GFR 88.88 (mL/min/1.73m2); FREE T4 0.94 ng/dL (0.76-1.46); Glucose 142 mg/dL (74-106); Magnesium 2.1 mg/dL (1.8-2.4); Sodium 140 mmol/L (136-145); TSH 1.57 uIU/mL (0.36-3.74); Total Protein 8.3 g/dL (6.4-8.2)
== END 2022-11-22 15:16 | disposition home or self-care (01) ==
LOC: LBO 15:15
PROVIDERS: PCP Family Medicine; Visit Provider Internal Medicine Medical Oncology
DX: C34.12 Malignant neoplasm of upper lobe, left bronchus or lung (principal); Z79.899 Other long term (current) drug therapy; C79.51 Secondary malignant neoplasm of bone
CPT/HCPCS: 36415; 80053; 83735; 84439; 84443; 85025

== ENCOUNTER 2022-11-29 15:31 | Outpatient (CLI) | payer MEDICARE, SELFPAY ==
[2022-11-29 09:41] LABS: Abs Immature Grans 0.04 10^3/uL (0.0-0.06); Absolute Basophil Count 0.03 10^3/uL (0.0-0.2); Absolute Eosinophil Count 0.19 10^3/uL (0.0-0.7); Absolute Lymphocyte Count 0.68 10^3/uL (1.2-3.4); Absolute Monocyte Count 0.42 10^3/uL (0.1-0.8); Basophils % 0.5; Eosinophils % 3.4; HCT 38.8 % (40.0-50.0); HGB 13.3 g/dL (13.5-17.5); Immature Grans % 0.7; Lymphocytes % 12.2; MCH 33.6 pg (27.0-33.0); MCHC 34.3 % (32.0-36.0); MCV 98 fL (80-95); MPV 10.8 fL (8.0-11.0); Monocytes % 7.6; Neutrophils % 75.6; Platelet Count 157 10^3/uL (130-400); RBC 3.96 10^6/uL (4.36-5.78); RDW-SD 46.6 fL; WBC 5.56 10^3/uL (4.4-10.8)
[2022-11-29 10:07] LABS: ALT 112 U/L (16-63); AST 90 U/L (15-37); Albumin 3.7 g/dL (3.4-5.0); Alkaline Phosphatase 151 U/L (46-116); Anion Gap 7.1 mmol/L (3-11); BUN 15 mg/dL (7-18); Bilirubin, Total 0.3 mg/dL (0.2-1.0); CO2 27.9 mmol/L (21.0-32.0); Calcium 9.1 mg/dL (8.5-10.1); Chloride 106 mmol/L (98-107); Estimated GFR 88.88 (mL/min/1.73m2); FREE T4 0.89 ng/dL (0.76-1.46); Glucose 124 mg/dL (74-106); Magnesium 1.9 mg/dL (1.8-2.4); Potassium 4.6 mmol/L (3.5-5.1); Sodium 141 mmol/L (136-145); TSH 0.88 uIU/mL (0.36-3.74); Total Protein 7.9 g/dL (6.4-8.2)
== END 2022-11-29 15:32 | disposition home or self-care (01) ==
LOC: LBO 15:37
PROVIDERS: PCP Family Medicine; Visit Provider Internal Medicine Medical Oncology
DX: Z79.899 Other long term (current) drug therapy (principal); C34.12 Malignant neoplasm of upper lobe, left bronchus or lung
CPT/HCPCS: 36415; 80053; 83735; 84439; 84443; 85025

== ENCOUNTER 2022-12-06 01:07 | Outpatient (CLI) | payer MEDICARE, SELFPAY ==
[2022-12-06 09:17] LABS: Absolute Basophil Count 0.02 10^3/uL (0.0-0.2); Absolute Lymphocyte Count 0.63 10^3/uL (1.2-3.4); Absolute Monocyte Count 0.39 10^3/uL (0.1-0.8); Absolute Neutrophil Count 4.37 10^3/uL (1.2-6.7); Basophils % 0.4; Eosinophils % 1.8; HCT 37.5 % (40.0-50.0); HGB 12.5 g/dL (13.5-17.5); Immature Grans % 1.8; Lymphocytes % 11.2; MCH 32.6 pg (27.0-33.0); MCHC 33.3 % (32.0-36.0); MCV 98 fL (80-95); MPV 10.4 fL (8.0-11.0); Neutrophils % 77.8; Platelet Count 155 10^3/uL (130-400); RBC 3.84 10^6/uL (4.36-5.78); RDW 13.1 % (11.8-14.1); RDW-SD 45.9 fL; WBC 5.61 10^3/uL (4.4-10.8)
[2022-12-06 09:44] LABS: ALT 104 U/L (16-63); AST 78 U/L (15-37); Albumin 3.6 g/dL (3.4-5.0); Alkaline Phosphatase 124 U/L (46-116); Anion Gap 5.3 mmol/L (3-11); BUN 14 mg/dL (7-18); Bilirubin, Total 0.3 mg/dL (0.2-1.0); CO2 28.7 mmol/L (21.0-32.0); CREATININE 1.1 mg/dL (0.70-1.30); Calcium 8.7 mg/dL (8.5-10.1); Chloride 105 mmol/L (98-107); Estimated GFR 79.28 (mL/min/1.73m2); FREE T4 0.85 ng/dL (0.76-1.46); Glucose 195 mg/dL (74-106); Magnesium 1.8 mg/dL (1.8-2.4); Potassium 4.4 mmol/L (3.5-5.1); Sodium 139 mmol/L (136-145); TSH 1.11 uIU/mL (0.36-3.74); Total Protein 7.4 g/dL (6.4-8.2)
== END 2022-12-06 01:08 | disposition home or self-care (01) ==
LOC: LBO 01:07
PROVIDERS: PCP Family Medicine; Visit Provider Internal Medicine Medical Oncology
DX: Z79.899 Other long term (current) drug therapy (principal); C34.12 Malignant neoplasm of upper lobe, left bronchus or lung; C79.51 Secondary malignant neoplasm of bone
CPT/HCPCS: 36415; 80053; 83735; 84439; 84443; 85025

== ENCOUNTER 2022-12-20 01:17 | Outpatient (CLI) | payer MEDICARE, SELFPAY ==
--- NOTE | 2022-12-20 | DI.US_ITS ---
Exam(s) US ABDOMEN LIMITED EXAM: US ABDOMEN LIMITED CLINICAL HISTORY: SWELLING OF ABD,R19.00,H/O LUNG CA AND HEP C,? ASCITES TECHNIQUE: Ultrasound abdomen performed using standard protocol. COMPARISON: No exams were available for comparison FINDINGS: PANCREAS: Normal where visualized. LIVER: There is diffuse increased echogenicity of the liver. Hepatopedal flow in the Portal Vein. Th e liver measures in 19.5 cm length. GALLBLADDER: No evidence of cholelithiasis. No evidence of wall thickening. No pericholecystic fluid identified. BILIARY SYSTEM: Common bile duct measures < 7 mm. No intrahepatic biliary ductal dilation. BROWN'S SIGN: Negative. RIGHT KIDNEY: Kidney is normal in size. No evidence of renal calculi. No evidence of hydronephrosis. No renal mass or cyst identified. ASCITES: All 4 quadrants were evaluated. No ascites is present. IMPRESSION: 1. Hepatomegaly and hepatic steatosis. 2. No evidence of ascites. DATA REPOSITORY:
== END 2022-12-20 01:37 ==
LOC: DI 01:17
PROVIDERS: PCP Family Medicine; Visit Provider Internal Medicine Medical Oncology
DX: R19.09 Other intra-abdominal and pelvic swelling, mass and lump (principal); B18.2 Chronic viral hepatitis C; Z85.118 Personal history of other malignant neoplasm of bronchus and lung; K76.0 Fatty (change of) liver, not elsewhere classified; R16.0 Hepatomegaly, not elsewhere classified
CPT/HCPCS: 76705

== ENCOUNTER 2022-12-20 02:52 | Outpatient (CLI) | payer MEDICARE, SELFPAY ==
[2022-12-20 08:08] LABS: Abs Immature Grans 0.03 10^3/uL (0.0-0.06); Absolute Basophil Count 0.02 10^3/uL (0.0-0.2); Absolute Eosinophil Count 0.04 10^3/uL (0.0-0.7); Absolute Lymphocyte Count 0.55 10^3/uL (1.2-3.4); Absolute Neutrophil Count 5.67 10^3/uL (1.2-6.7); Basophils % 0.3; Eosinophils % 0.6; HCT 41.8 % (40.0-50.0); HGB 14.3 g/dL (13.5-17.5); Immature Grans % 0.4; MCH 33.5 pg (27.0-33.0); MCHC 34.2 % (32.0-36.0); MCV 98 fL (80-95); MPV 10.3 fL (8.0-11.0); Monocytes % 8.7; Platelet Count 159 10^3/uL (130-400); RBC 4.27 10^6/uL (4.36-5.78); RDW 14.6 % (11.8-14.1); RDW-SD 51.3 fL; WBC 6.91 10^3/uL (4.4-10.8)
[2022-12-20 08:33] LABS: ALT 112 U/L (16-63); AST 69 U/L (15-37); Albumin 3.8 g/dL (3.4-5.0); Alkaline Phosphatase 96 U/L (46-116); Anion Gap 5.7 mmol/L (3-11); BUN 16 mg/dL (7-18); Bilirubin, Total 0.5 mg/dL (0.2-1.0); CO2 30.3 mmol/L (21.0-32.0); Calcium 9.2 mg/dL (8.5-10.1); Chloride 103 mmol/L (98-107); Estimated GFR 88.88 (mL/min/1.73m2); FREE T4 0.98 ng/dL (0.76-1.46); Glucose 128 mg/dL (74-106); Magnesium 2.1 mg/dL (1.8-2.4); Potassium 4.4 mmol/L (3.5-5.1); Sodium 139 mmol/L (136-145); TSH 2.68 uIU/mL (0.36-3.74); Total Protein 7.9 g/dL (6.4-8.2)
== END 2022-12-20 02:53 | disposition home or self-care (01) ==
LOC: LBO 02:52
PROVIDERS: PCP Family Medicine; Visit Provider Internal Medicine Medical Oncology
DX: Z79.899 Other long term (current) drug therapy (principal); C34.12 Malignant neoplasm of upper lobe, left bronchus or lung; C79.51 Secondary malignant neoplasm of bone
CPT/HCPCS: 36415; 80053; 83735; 84439; 84443; 85025

== ENCOUNTER 2022-12-27 03:04 | Outpatient (CLI) | payer MEDICARE, SELFPAY ==
[2022-12-27 08:30] LABS: Abs Immature Grans 0.03 10^3/uL (0.0-0.06); Absolute Basophil Count 0.01 10^3/uL (0.0-0.2); Absolute Eosinophil Count 0.07 10^3/uL (0.0-0.7); Absolute Lymphocyte Count 0.72 10^3/uL (1.2-3.4); Absolute Monocyte Count 0.42 10^3/uL (0.1-0.8); Absolute Neutrophil Count 2.53 10^3/uL (1.2-6.7); Basophils % 0.3; Eosinophils % 1.9; HCT 36.6 % (40.0-50.0); HGB 12.2 g/dL (13.5-17.5); Immature Grans % 0.8; MCH 33.6 pg (27.0-33.0); MCHC 33.3 % (32.0-36.0); MCV 101 fL (80-95); MPV 10.6 fL (8.0-11.0); Monocytes % 11.1; Neutrophils % 66.9; Platelet Count 105 10^3/uL (130-400); RBC 3.63 10^6/uL (4.36-5.78); RDW 14.4 % (11.8-14.1); RDW-SD 53.1 fL; WBC 3.78 10^3/uL (4.4-10.8)
[2022-12-27 08:58] LABS: ALT 107 U/L (16-63); AST 83 U/L (15-37); Albumin 3.3 g/dL (3.4-5.0); Alkaline Phosphatase 110 U/L (46-116); Anion Gap 5.5 mmol/L (3-11); BUN 15 mg/dL (7-18); Bilirubin, Total 0.2 mg/dL (0.2-1.0); CO2 30.5 mmol/L (21.0-32.0); CREATININE 0.9 mg/dL (0.70-1.30); Calcium 8.8 mg/dL (8.5-10.1); Chloride 106 mmol/L (98-107); Estimated GFR 100.86 (mL/min/1.73m2); FREE T4 0.98 ng/dL (0.76-1.46); Glucose 152 mg/dL (74-106); Magnesium 1.8 mg/dL (1.8-2.4); Potassium 4.2 mmol/L (3.5-5.1); Sodium 142 mmol/L (136-145); TSH 3.19 uIU/mL (0.36-3.74); Total Protein 6.9 g/dL (6.4-8.2)
== END 2022-12-27 03:05 | disposition home or self-care (01) ==
LOC: LBO 03:04
PROVIDERS: PCP Family Medicine; Visit Provider Internal Medicine Medical Oncology
DX: C34.12 Malignant neoplasm of upper lobe, left bronchus or lung (principal); Z79.899 Other long term (current) drug therapy; C79.51 Secondary malignant neoplasm of bone
CPT/HCPCS: 36415; 80053; 83735; 84439; 84443; 85025

== ENCOUNTER 2023-01-17 02:33 | Outpatient (CLI) | payer MEDICARE, SELFPAY ==
[2023-01-17 13:55] LABS: Abs Immature Grans 0.04 10^3/uL (0.0-0.06); Absolute Basophil Count 0.04 10^3/uL (0.0-0.2); Absolute Lymphocyte Count 0.92 10^3/uL (1.2-3.4); Absolute Monocyte Count 1.22 10^3/uL (0.1-0.8); Absolute Neutrophil Count 2.13 10^3/uL (1.2-6.7); Basophils % 0.9; Eosinophils % 2.2; HCT 38.4 % (40.0-50.0); HGB 13.1 g/dL (13.5-17.5); Immature Grans % 0.9; Lymphocytes % 20.7; MCH 33.3 pg (27.0-33.0); MCHC 34.1 % (32.0-36.0); MCV 98 fL (80-95); MPV 9.6 fL (8.0-11.0); Monocytes % 27.4; Neutrophils % 47.9; Platelet Count 208 10^3/uL (130-400); RBC 3.93 10^6/uL (4.36-5.78); RDW 16.4 % (11.8-14.1); RDW-SD 58.8 fL; WBC 4.45 10^3/uL (4.4-10.8)
[2023-01-17 14:25] LABS: ALT 48 U/L (16-63); AST 46 U/L (15-37); Albumin 3.5 g/dL (3.4-5.0); Alkaline Phosphatase 90 U/L (46-116); Anion Gap 3.3 mmol/L (3-11); BUN 14 mg/dL (7-18); Bilirubin, Total 0.4 mg/dL (0.2-1.0); CO2 30.7 mmol/L (21.0-32.0); CREATININE 0.9 mg/dL (0.70-1.30); Calcium 9.2 mg/dL (8.5-10.1); Chloride 108 mmol/L (98-107); Estimated GFR 100.86 (mL/min/1.73m2); FREE T4 0.95 ng/dL (0.76-1.46); Glucose 85 mg/dL (74-106); Potassium 4.4 mmol/L (3.5-5.1); Sodium 142 mmol/L (136-145); TSH 2.84 uIU/mL (0.36-3.74); Total Protein 7.6 g/dL (6.4-8.2)
== END 2023-01-17 02:34 | disposition home or self-care (01) ==
LOC: LBO 02:33
PROVIDERS: PCP Family Medicine; Visit Provider Internal Medicine Medical Oncology
DX: C34.12 Malignant neoplasm of upper lobe, left bronchus or lung (principal); Z79.899 Other long term (current) drug therapy; C79.51 Secondary malignant neoplasm of bone
CPT/HCPCS: 36415; 80053; 83735; 84439; 84443; 85025

== ENCOUNTER 2023-06-20 02:27 | Outpatient (CLI) | payer MEDICARE, SELFPAY ==
[2023-06-20 14:50] LABS: FREE T4 0.71 ng/dL (0.76-1.46); TSH 0.93 uIU/mL (0.36-3.74)
== END 2023-06-20 02:28 | disposition home or self-care (01) ==
LOC: LBO 02:28
PROVIDERS: PCP Family Medicine; Visit Provider Internal Medicine Medical Oncology
DX: C34.12 Malignant neoplasm of upper lobe, left bronchus or lung (principal); C79.51 Secondary malignant neoplasm of bone; Z79.899 Other long term (current) drug therapy
CPT/HCPCS: 36415; 84439; 84443

== ENCOUNTER 2023-09-12 14:18 | Outpatient (CLI) | payer MEDICARE, SELFPAY ==
[2023-09-12 13:14] LABS: Abs Immature Grans 0.02 10^3/uL (0.0-0.06); Absolute Basophil Count 0.02 10^3/uL (0.0-0.2); Absolute Eosinophil Count 0.45 10^3/uL (0.0-0.7); Absolute Lymphocyte Count 1.57 10^3/uL (1.2-3.4); Absolute Monocyte Count 0.71 10^3/uL (0.1-0.8); Absolute Neutrophil Count 2.85 10^3/uL (1.2-6.7); Basophils % 0.4; HCT 44.7 % (40.0-50.0); HGB 15.2 g/dL (13.5-17.5); Immature Grans % 0.4; Lymphocytes % 27.9; MCV 91 fL (80-95); MPV 9.4 fL (8.0-11.0); Monocytes % 12.6; Neutrophils % 50.7; Platelet Count 216 10^3/uL (130-400); RBC 4.91 10^6/uL (4.36-5.78); RDW 12.6 % (11.8-14.1); RDW-SD 41.6 fL; WBC 5.62 10^3/uL (4.4-10.8)
[2023-09-12 13:34] LABS: ALT 19 U/L (16-63); AST 17 U/L (15-37); Albumin 3.8 g/dL (3.4-5.0); Alkaline Phosphatase 74 U/L (46-116); Anion Gap 7.4 mmol/L (3-11); BUN 8 mg/dL (7-18); Bilirubin, Total 0.4 mg/dL (0.2-1.0); CO2 25.6 mmol/L (21.0-32.0); Calcium 9.3 mg/dL (8.5-10.1); Chloride 102 mmol/L (98-107); Estimated GFR 88.88 (mL/min/1.73m2); Glucose 111 mg/dL (74-106); Sodium 135 mmol/L (136-145)
== END 2023-09-12 14:19 | disposition home or self-care (01) ==
LOC: LBO 14:18
PROVIDERS: PCP Family Medicine; Visit Provider Internal Medicine Medical Oncology
DX: C34.12 Malignant neoplasm of upper lobe, left bronchus or lung (principal); C79.51 Secondary malignant neoplasm of bone
CPT/HCPCS: 36415; 80053; 85025

== ENCOUNTER 2023-11-21 14:01 | Outpatient (CLI) | payer MEDICARE, SELFPAY ==
[2023-11-21 14:32] LABS: Abs Immature Grans 0.07 10^3/uL (0.0-0.06); Absolute Basophil Count 0.02 10^3/uL (0.0-0.2); Absolute Eosinophil Count 0.05 10^3/uL (0.0-0.7); Absolute Lymphocyte Count 1.54 10^3/uL (1.2-3.4); Absolute Monocyte Count 0.96 10^3/uL (0.1-0.8); Absolute Neutrophil Count 6.97 10^3/uL (1.2-6.7); Basophils % 0.2; Eosinophils % 0.5; HGB 14.3 g/dL (13.5-17.5); Immature Grans % 0.7; MCH 31.2 pg (27.0-33.0); MCV 92 fL (80-95); MPV 9.7 fL (8.0-11.0); Neutrophils % 72.6; Platelet Count 260 10^3/uL (130-400); RBC 4.58 10^6/uL (4.36-5.78); RDW 14.1 % (11.8-14.1); RDW-SD 47.4 fL; WBC 9.61 10^3/uL (4.4-10.8)
[2023-11-21 14:59] LABS: ALT 19 U/L (16-63); AST 14 U/L (15-37); Albumin 3.8 g/dL (3.4-5.0); Alkaline Phosphatase 85 U/L (46-116); Anion Gap 8.5 mmol/L (3-11); BUN 10 mg/dL (7-18); Bilirubin, Total 0.4 mg/dL (0.2-1.0); CO2 29.5 mmol/L (21.0-32.0); CREATININE 1.1 mg/dL (0.70-1.30); Calcium 9.3 mg/dL (8.5-10.1); Chloride 102 mmol/L (98-107); Estimated GFR 78.79 (mL/min/1.73m2); FREE T4 0.79 ng/dL (0.76-1.46); Glucose 151 mg/dL (74-106); Magnesium 2.2 mg/dL (1.8-2.4); Potassium 3.9 mmol/L (3.5-5.1); Sodium 140 mmol/L (136-145); TSH 1.48 uIU/mL (0.36-3.74); Total Protein 7.6 g/dL (6.4-8.2)
== END 2023-11-21 14:02 | disposition home or self-care (01) ==
PROVIDERS: PCP Family Medicine; Visit Provider Nurse Practitioner Family
DX: C34.12 Malignant neoplasm of upper lobe, left bronchus or lung (principal); Z79.899 Other long term (current) drug therapy
CPT/HCPCS: 36415; 80053; 83735; 84439; 84443; 85025